=== PATIENT | male | born 1965 | race Caucasian/White ===

== ENCOUNTER 2018-03-14 16:41 | Emergency (ER) | payer BC, SELFPAY ==
[2018-03-14 16:42] VITALS: BP 121/72; PULSE 94; RESP 16; TEMP 36.6; O2SAT 97; BMI 29.5
--- NOTE | 2018-03-14 16:50 | RAD_ITS ---
STUDY: X-RAY - LEFT HAND, ATTENTION FIRST FINGER REASON FOR EXAM: Male, 52 years old. Injury. Pain. TECHNIQUE: 3 view(s) of the finger were obtained. COMPARISON: None. FINDINGS: Normal metacarpal head. Normal metacarpophalangeal joint. Normal proximal phalanx. Normal middle phalanx. Normal distal phalanx. Normal proximal interphalangeal joint. Normal distal interphalangeal joint. There is no demonstrated fracture. RAD/Finger(s) Min 2 Views IMPRESSION: Normal x-ray examination of the thumb. Electronically Signed: Seferino Fox MD at 17:29 EST , Service support ,
--- NOTE | 2018-03-14 17:56 | ED.VISSUMM ---
- ER Visit Summary Date of Service: 03/14/18 Chief Complaint: Left thumb injury History of Present Illness: The patient is a 52 M aqqib-vwjd-mnpefnpa male who shot his left thumb in a car door yesterday. He has continued pain and throbbing in the left thumb with subungual hematoma. He has been taking Tylenol at home for pain. Physical Examination: Vital signs unremarkable. Patient sitting upright bed no acute distress. Left upper extremity examination reveals tenderness along the distal acid of the left thumb with a subungual hematoma. No gross deformities noted. He does have good range of motion. Test Results: Left thumb x-rays are read as normal. On my review the lateral image does appear to show a line concerning for fracture., Although it is not seen on any of the other views. Emergency Department Course and Treatment: Test results are discussed with patient and at bedside. I advised that whether or not there is a small nondisplaced fracture, our overall treatment will not change. We discussed potentially draining the subungual hematoma. Because the injury is nearly 24 hours old at this time he would prefer to not have this performed. He will be given an AlumaFoam splint. Because he does have evidence of hematoma out to the edge of the nail and I do question whether he may have a fracture, he will be covered with a short course of doxycycline to protect against infection. Treatment Plan: [] Disposition: Discharge Impression: 1. Crush injury left thumb 2. Subungual hematoma This note was generated with [employer] dictation software. It may contain incorrect words, spelling, and punctuation that were not noted in review of the chart prior to signing ED Disposition - Plan for ED Patient: Disposition: Home or Assisted Living Chief Complaint: Upper Extremity Injury Instructions: ED Crush Injury Finger No Fx, ED Hematoma Subungual Prescriptions: Naproxen [Naprosyn] 500 mg PO BID PRN PRN #20 tablet PRN Reason: Pain Doxycycline Monohydrate 100 mg PO BID #8 capsule Referrals: Robbin Vanegas MD [Primary Care Provider] - 1-2 Weeks
[2018-03-14] MEDS: Naproxen 500 MG Tablet PO (18:23)
[2018-03-14] MEDS: Doxycycline 100 MG CAPSULE PO (18:23)
[2018-03-14 18:29] VITALS: BP 125/78; PULSE 82; RESP 16; O2SAT 98
== END 2018-03-14 18:33 | disposition home or self-care (01) ==
PROVIDERS: Emergency Provider Emergency Medicine; Family Provider Family Medicine; PCP Family Medicine
DX: S67.02XA Crushing injury of left thumb, initial encounter (principal); S60.112A Contusion of left thumb with damage to nail, initial encounter; W23.0XXA Caught, crushed, jammed, or pinched between moving objects, initial encounter; Y93.9 Activity, unspecified; Y92.810 Car as the place of occurrence of the external cause; I10 Essential (primary) hypertension; J45.909 Unspecified asthma, uncomplicated; Z87.891 Personal history of nicotine dependence; Z79.82 Long term (current) use of aspirin; Z79.899 Other long term (current) drug therapy
CPT/HCPCS: 73140; 99284

== ENCOUNTER → 2018-10-08 | Outpatient (CLI) | payer BC, SELFPAY ==
--- NOTE | 2018-10-08 08:31 | RAD_ITS ---
STUDY: X-RAY - ESOPHAGUS (BARIUM SWALLOW) WITH FLUOROSCOPY REASON FOR EXAM: Male, 53 years old. Dysphagia for solids. TECHNIQUE: 17 fluoroscopic view(s) of the esophagus were obtained following swallowing of barium. FLUOROSCOPY TIME (if supplied): (0:32) minutes/seconds COMPARISON: None. FINDINGS: There is no demonstrated esophageal foreign body. There is no demonstrated stricture or mucosal abnormality. There is a small hiatal hernia of the fundus of the stomach. Weblike stenosis is seen at the gastroesophageal junction. The patient ingested a 12 mm tablet of barium. The tablet is trapped at the gastroesophageal junction. Normal visualized aortic arch and descending thoracic aorta. Normal visualized pulmonary parenchyma. Normal visualized osseous structures of the thorax. RAD/Esophagus Only IMPRESSION: Small sliding hiatal hernia without evidence of gastroesophageal reflux. Weblike stenosis at the gastroesophageal junction with trapping of the 12 mm tablet of barium at that site. Electronically Signed: Stan Gonsalez, at 12:44 EDT , Service support ,
== END | disposition home or self-care (01) ==
LOC: RAD 08:26
PROVIDERS: Family Provider Family Medicine; PCP Family Medicine; Referring Provider Family Medicine; Visit Provider Family Medicine
DX: R13.10 Dysphagia, unspecified (principal)
CPT/HCPCS: 74220

== ENCOUNTER 2018-10-14 05:54 | Day surgery (SDC) | payer BC, SELFPAY ==
[2018-10-12 14:13] VITALS: BMI 29.5
[2018-10-14 06:16] VITALS: BP 115/84; PULSE 73; RESP 16; TEMP 36.4; O2SAT 94; BMI 31.0
--- NOTE | 2018-10-14 07:00 | IMM_PTH ---
PATIENT: ARSENIO VILLALOBOS LOC: EN U#:[id number] AGE/SX: 53/M ROOM: RE10/14/[address]: Dr. Scot Johnson MD : 1965 BED: DIS: 10/14/2018 SPEC #: [id number] RECD: 10/14/18 13:24 STATUS: SHANEL REAustin #: [id number] RUPERT: 10/14/18 07:[address]: Scot Johnson DEPT: IMMUNOHISTOCHEMISTRY RECD BY: Penelope Alex ENTERED: 10/14/18 13:24 SP TYPE: IMMUNO OTHR DR: MD Robbin Malave MD Tissues: A - Stomach, NOS Procedures: H Pylori (initial) PHYSICIAN & INSTITUTION [place] [address] SPECIMEN INFORMATION: Tissue Source: A - Antral biopsy Clinical Info: Dysphagia Specimen Number: [id number] CPT code: 25604 METHODOLOGY: Deparaffinized sections of prefer/formalin-fixed tissue or PAP/DQ stained slides are incubated with monoclonal/polyclonal antibodies/oligonucleotide probes. Localization is made via biotin free immunoperoxidase method. Appropriate controls are performed and reacted as expected. Results on target cell population are indicated in the following table: RESULTS: ANTIBODY / CLONE RESULT Block A H Pylori (polyclonal) negative These tests were developed and their performance characteristics determined by [facility]. They may not have been cleared or approved by the U.S. Food and Drug Administration. The FDA has determined that such clearance or approval is not necessary. INTERPRETATION: Antral biopsy: Negative for Helicobacter pylori organisms. FA:nolan 10/15/18
--- NOTE | 2018-10-14 07:00 | EGD_PTH ---
PATIENT: ARSENIO VILLALOBOS LOC: EN U#:[id number] AGE/SX: 53/M ROOM: RE10/14/[address]: Dr. Scot Johnson MD : 1965 BED: DIS: 10/14/2018 SPEC #: [id number] RECD: 10/14/18 11:15 STATUS: SHANEL NIMISHA #: [id number] RUPERT: 10/14/18 07:[address]: Scot Johnson DEPT: SURGICAL PATHOLOGY RECD BY: Jenny Garner ENTERED: 10/14/18 13:14 SP TYPE: EGD BIOPSY OT DR: MD Robbin Malave MD Tissues: A - Gastric mucous membrane B - Esophageal mucous membrane Procedures: Surgery Specimen Level IV HEADER OPERATION: EGD with possible dilation PRE-OP DIAGNOSIS: Dysphagia TISSUE SUBMITTED: A. Antral biopsy for histo and H. pylori, B. Distal esophageal biopsy MICROSCOPIC DIAGNOSIS A. Antral biopsy: Antral mucosa with no significant pathologic changes. See comment. B. Distal esophagus biopsy: Squamogastric GE junction mucosa with increased eosinophils in the squamous epithelium consistent with eosinophilic esophagitis. Eosinophil count up to 25/ HPF. No evidence of Gilbert's intestinal metaplasia. Negative for dysplasia. FA:nolan 10/15/18 COMMENT A. The results of immunohistochemistry for Helicobacter pylori will be reported separately ([id number]). MICROSCOPIC DESCRIPTION Slides are reviewed. GROSS DESCRIPTION A - Received in fixative is one container labeled with the patient's name and designated antral biopsy. The specimen consists of a single pinkish-castellanos biopsy fragment measuring up to 2 mm in greatest dimension. The specimen is totally submitted in one cassette. B - Received in fixative is one container labeled with the patient's name and designated distal esophageal biopsy. The specimen consists of two pinkish-castellanos biopsy fragments ranging from 2 to 3 mm in greatest dimension. The specimen is totally submitted in one cassette. / FA:nolan 10/14/18 TC:3 [facility]: [id number] x2
--- NOTE | 2018-10-14 07:00 | PCM.HP.BLA ---
History and Physical Date of Admission: 10/14/18 [facility] [address] [place] [address] OFFICE VISIT Date of Service: 10/12/18 MR#: [id number] Acct: [id number] Name: ARSENIO VILLALOBOS Rep #: [id number] : 1965 Provider: Scot Johnson MD Age/Sex: 53/M Location: [facility] Status: Signed Intake Vital Signs 10/13/18 Body Mass Index (BMI) 29.5 10/12/18 Height 5 ft 10 in 10/12/18 Weight: 205 lb 6 oz 10/12/18 Body Mass Index (BMI) 29.5 10/12/18 Blood Pressure 113/74 10/12/18 Blood Pressure Location Rt brachial 10/12/18 Respiratory Rate 20 H 10/12/18 Pulse Rate 75 10/12/18 Pulse Ox 97 Intake Visit Reasons: dysphagia/abn barium swallow Chief Complaint: dysphagia Skilled Nursing Facility Counselor Required: No Is patient in pain?: No Allergies Penicillins Allergy (Verified 10/13/18 09:37) Unknown Medications Cetirizine HCl [Zyrtec] 10 mg PO DAILY 02/06/15 [History Confirmed 10/13/18] Multivitamins,Therapeutic [Multivitamin] 1 tab PO DAILY 02/06/15 [History Confirmed 10/13/18] buPROPion SR [Wellbutrin Sr] 150 mg PO BID 02/06/15 [History Confirmed 10/13/18] Aspirin [Aspir-Low] 81 mg PO DAILY 05/17/16 [History Confirmed 10/13/18] Cholecalciferol (Vitamin D3) [Vitamin D3] 1,000 unit PO DAILY 05/17/16 [History Confirmed 10/13/18] Nebivolol HCl [Bystolic] 5 mg PO DAILY 05/17/16 [History Confirmed 10/13/18] Quinapril HCl [Accupril] 10 mg PO DAILY 05/17/16 [History Confirmed 10/13/18] Tadalafil [Cialis] 5 mg PO DAILY 05/17/16 [History Confirmed 10/13/18] Albuterol Inhaler [Ventolin Hfa (SP)] 1 - 2 puff INHALATION Q6H PRN PRN 10/25/16 [History Confirmed 10/13/18] ammonium lactate 12 % topical cream 1 applic TOPICAL BID 10/12/18 [History Confirmed 10/13/18] calcium citrate 250 mg tablet 250 mg PO BID 10/12/18 [History Confirmed 10/13/18] Esomeprazole Magnesium [Nexium 24Hr] 20 mg PO PRN PRN 10/13/18 [History Confirmed 10/13/18] [facility] Medical History Anxiety (Acute) Back pain (Acute) Cardiac murmur (Acute) Esophageal stricture (Acute) GERD (gastroesophageal reflux disease) (Acute) Surgical History History of carpal tunnel release (Acute) History of cholecystectomy (Acute ~2007) History of colonoscopy (Acute ~2015) History of esophagogastroduodenoscopy (EGD) (Acute) History of fusion of cervical spine (Acute) History of vasectomy (Acute) Family History Father Hypertension Alzheimer disease Mother Breast cancer Social History (Updated 10/13/18 @ 10:50 by Scot Johnson MD) Smoking Status: Former smoker HPI HPI HPI: ARSENIO VILLALOBOS, is a 53 M who presents to the office today for HPI HPI Surgical H&P: Yes HPI: ARSENIO VILLALOBOS, is a 53 M who presents to the office today for evaluation for an upper endoscopy. Patient has been having problems with dysphagia and is been getting worse where he has daily food getting stuck in his esophagus. His last upper scope was 3 years ago he did not undergo dilatation at that time. He has a history of esophageal foreign body approximately 8 years ago which was subsequently removed in [place]. His most recent barium swallow was completed [facility] on 10/08/2018 that showed a small hiatal hernia without evidence of gas esophageal reflux disease weblike stenosis at the GE junction with trapping of a 12 mm tablet at that site. ROS General General: Yes fatigue; no weight change, appetite, colon cancer, breast cancer or weakness HEENT HEENT: Yes difficulty swallowing; no eye injury, eye surgery, swollen glands or hoarseness Endo Endocrine: No thyroid disease, diabetes mellitus, thyroid cancer, Hair loss, heat intolerance or cold intolerance Cardio Cardiovascular: Yes murmur; no pacemaker, heart disease, atrial fibrillation, high blood pressure, heart attack, heart stent, palpitations, shortness of breat with exertion or chest pain Psych Psychiatric: Yes anxiety; no depression or hearing voices Resp Respiratory: No shortness of breath, No sleep apnea, No cough, No COPD, No asthma, No emphysema, No wheezing Gastro Gastrointestinal: No abdominal pain, No nausea or vomiting, No diarrhea, No constipation, No blood in stool, Yes acid reflux, No hemorrhoids, No ulcers, No gallbladder problem, No black,tarry stools Neuro Neurologic: No weakness Exam Const General: no acute distress, well developed, well hydrated Orientation: oriented to person, oriented to place, oriented to time [facility] Head: normocephalic, atraumatic Ears: external ears normal Mouth: moist mucous membranes Eyes Sclera: sclerae normal Pupils: normal by confrontation Neck Neck: no lymphadenopathy noted Neck mass: No Thyroid: thyroid normal, symmetrical Chest Chest palpation & inspection: normal inspection of the chest Resp Effort & Inspection: normal respiratory effort Auscultation: clear to auscultation bilaterally Percussion: percussion normal Cardio Rate: regular rate Rhythm: regular rhythm Heart Sounds: murmur GI Palpation: soft, no hepatosplenomegaly, no masses, nontender Rectal Exam: other Other: Rectal exam deferred. Extrem General: normal to inspection, no clubbing, cyanosis or edema Assessment & Plan Problems 1. Esophageal dysphagia R13.10 Plan I have discussed the above with the patient. I have offered the patient esophagogastroduodenoscopy with possible dilatation for evaluation. I have explained the risks/benefits of the procedure and described the procedure. I have discussed the risks with the patient, including but not limited to: infection, bleeding, perforation of the GI tract requiring emergency surgery, inability to complete the procedure, injury to any internal organs, complications of anesthesia, etc. - the patient understands and agrees to proceed. I have answered all the patient's questions to the patient's satisfaction and the patient has no further questions. The patient has been given instructions for the colon cleansing preparation. Coding Level of Care Code Off vis,new,level 3 Diagnoses Esophageal dysphagia R13.10 ??Dysphagia type: esophageal phase 10/13/18 1050 <Electronically signed by Scot Johnson MD> Date Scot Salinas Signature: Date (if applicable) CC: Robbin Vanegas MD ~ I have re-examined the patient. There are no clinical changes since date of exam.
[2018-10-14 07:15] VITALS: BP 103/87; BP 115/84; PULSE 90; RESP 16; TEMP 36.7; O2SAT 93
--- NOTE | 2018-10-14 07:19 | OP.ENDO_ITS ---
10/14/2018 Robbin Vanegas Md Re : Upper GI endoscopy procedure for Clyde Fischer Rosa Elena Vanegas This procedure was performed on Sunday, October 14, 2018. My impressions and recommendations are as follows: Impressions : - LA Grade A reflux esophagitis. Rule out Gilbert's esophagus. Biopsied. - Mucosal changes suspicious for gastritis. Biopsied. - Erythematous duodenopathy. No specimens collected. Recommendations : - Discharge patient to home. - Resume previous diet. - Use Nexium (esomeprazole) 20 mg PO BID for 3 months. - Continue present medications. My findings are described in the full procedure note, which is enclosed. If I can be of further assistance, please feel free to contact me at Doctor phone number(s): , Fax: [phone], Work: . Sincerely, MD Scot De MD 10/14/2018 7:18:48 AM This report has been signed electronically.
[2018-10-14 07:20] VITALS: BP 108/76; BP 115/84; PULSE 82; RESP 16; O2SAT 92
[2018-10-14 07:25] VITALS: BP 107/76; BP 115/84; PULSE 77; RESP 16; O2SAT 92
[2018-10-14 07:31] VITALS: BP 101/75; BP 115/84; PULSE 78; RESP 16; TEMP 37.1; O2SAT 94
[2018-10-14 07:44] VITALS: BP 115/84
== END 2018-10-14 07:49 | disposition home or self-care (01) ==
LOC: EN 05:55 → AC 05:57
PROVIDERS: Family Provider Family Medicine; PCP Family Medicine; Referring Provider Family Medicine; Visit Provider Surgery
PROC: 0DJ08ZZ Inspection of Upper Intestinal Tract, Via Natural or Artificial Opening Endoscopic (ICD-10-PCS; CPT 43235; principal; 2018-10-14 06:55)
DX: K21.0 Gastro-esophageal reflux disease with esophagitis (principal); K31.89 Other diseases of stomach and duodenum; R13.14 Dysphagia, pharyngoesophageal phase; R12 Heartburn; I10 Essential (primary) hypertension; F32.9 Major depressive disorder, single episode, unspecified; F41.9 Anxiety disorder, unspecified; R01.1 Cardiac murmur, unspecified; Z79.82 Long term (current) use of aspirin; Z79.899 Other long term (current) drug therapy; Z87.891 Personal history of nicotine dependence
CPT/HCPCS: 43239; 88305; 88342; J7120; J2405

== ENCOUNTER → 2019-03-23 12:41 | Outpatient (CLI) | payer BC, SELFPAY ==
--- NOTE | 2019-03-23 13:04 | EKG12_ITS ---
Test Reason : PRE OP Blood Pressure : / mmHG Vent. Rate : 086 BPM Atrial Rate : 086 BPM P-R Int : 140 ms QRS Dur : 092 ms QT Int : 332 ms P-R-T Axes : 052 047 028 degrees QTc Int : 397 ms Normal sinus rhythm Normal ECG Confirmed by ALICIA BERRY, CARMITA ([id number]), features editor DEEPIKA ORTEGA ([id number]) on 03/24/2019 12:53:48 PM Referred By: Manuel Marques Confirmed By:CARMITA VARGAS MD
[2019-03-23 13:59] LABS: Hematocrit 49.3 % (40-54); Hemoglobin 16.3 g/dL (13.0-16.5); Mean Corp Hgb Conc 33.1 g/dL (32-36); Mean Corpuscular Hgb 29.9 pg (27.0-32.0); Mean Corpuscular Volume 90.5 fL (80-94); Mean Platelet Vol. 9.6 fl (6.2-12.0); Platelet Count 220 K/mm3 (150-450); RBC Distribution Width SD 43.4 fl (35.1-43.9); Red Blood Count 5.45 M/mm3 (4.6-6.2); White Blood Count 7.4 K/mm3 (4.4-11.0)
[2019-03-23 14:22] LABS: Anion Gap 7 (5-15); BUN 9 mg/dL (7-18); BUN/Creat Ratio 8.1 RATIO (10-20); Calcium,Total 8.7 mg/dL (8.5-10.1); Chloride 104 mmol/L (98-107); Creatinine, Serum 1.11 mg/dL (0.70-1.30); EST Glomerular Filtration Rate 74 mL/min (>60); Est Glom Filt Rate - Afr Amer 89 mL/min (>60); Glucose 84 mg/dL (74-106); Sodium Level 137 mmol/L (136-145)
== END ==
PROVIDERS: Family Provider Family Medicine; PCP Family Medicine; Referring Provider Orthopaedic Surgery; Visit Provider Orthopaedic Surgery
DX: Z01.818 Encounter for other preprocedural examination (principal); Z01.810 Encounter for preprocedural cardiovascular examination
CPT/HCPCS: 36415; 80048; 85027; 93005

== ENCOUNTER → 2019-12-24 15:35 | Outpatient (CLI) | payer BC, SELFPAY ==
--- NOTE | 2019-12-24 15:38 | RAD_ITS ---
STUDY: X-RAY - CERVICAL SPINE REASON FOR EXAM: Male, 54 years old. RIGHT SIDED RADICULOPATHY, HX OF CERVICAL FUSION IN 2008 TECHNIQUE: 70 view(s) of the cervical spine were obtained. COMPARISON: None FINDINGS: Normal anterior atlantoaxial articulation. Normal odontoid process. Normal cervical lordosis. Degenerative changes of the vertebral bodies with spurring at the endplates. Status post surgical fusion of the C5-C7 with disc spaces. Normal disc space heights. Uncovertebral spurring narrowing the C7-T1 intervertebral neuroforamina. The soft tissue structures are unremarkable. RAD/Cerv Spine Obl/Flex/Ext Comp IMPRESSION: Degenerative and postsurgical changes of the visualized cervical spine. Electronically Signed: Jesse Linn DO at 16:00 EDT Tel [phone], Service support ,
== END ==
PROVIDERS: PCP Family Medicine; Referring Provider Family Medicine; Visit Provider Family Medicine
DX: M54.12 Radiculopathy, cervical region (principal)
CPT/HCPCS: 72052

== ENCOUNTER → 2020-01-18 16:11 | Outpatient (CLI) | payer BC, SELFPAY ==
[2020-01-18 18:12] LABS: Absolute Lymphocyte Count 2.23 X10^3/uL (0.83-4.51); Absolute Neutrophil Count 2.7 X10^3/uL (2.0-7.7); Basophil# 0.05 X10^3/uL; Basophil% 0.9 % (0-1); Eosinophil# 0.44 X10^3/uL; Eosinophils% 7.5 % (0-5); Hematocrit 46.4 % (40-54); Hemoglobin 15.4 g/dL (13.0-16.5); Lymphocyte # 2.23 X10^3/ul (4.0); Lymphocyte % 38.2 % (19-41); Mean Corp Hgb Conc 33.2 g/dL (32-36); Mean Corpuscular Volume 90.3 fL (80-94); Mean Platelet Vol. 9.6 fl (6.2-12.0); Monocyte# 0.41 X10^3/uL; NRBC Flagged by Analyzer 0 % (0-5); Neutrophil % 46.2 % (47-70); Platelet Count 220 K/mm3 (150-450); RBC Distribution Width CV 12.3 % (11.6-14.6); Red Blood Count 5.14 M/mm3 (4.6-6.2); White Blood Count 5.8 K/mm3 (4.4-11.0)
[2020-01-18 18:22] LABS: Vitamin B12 365 pg/mL (211-911); Vitamin D,25 Hydroxy 85.8 ng/mL
[2020-01-18 19:25] LABS: Hemoglobin A1c 5.3 % (3.8-5.6)
[2020-01-18 20:41] LABS: ALB/GLOB Ratio 1.2 RATIO (0.9-2.4); AST(SGOT) 27 U/L (15-37); Alanine Aminotransfer ALT/SGPT 35 U/L (16-61); Albumin, Serum 3.8 g/dL (3.2-5.0); Alkaline Phosphatase 78 U/L (45-117); Anion Gap 6 (5-15); BUN 16 mg/dL (7-18); Calcium,Total 8.7 mg/dL (8.5-10.1); Chloride 103 mmol/L (98-107); Cholesterol 216 mg/dL (200); Creatinine, Serum 1.23 mg/dL (0.70-1.30); EST Glomerular Filtration Rate 65 mL/min (>60); Est Glom Filt Rate - Afr Amer 79 mL/min (>60); Estradiol 39.9 pg/mL; Free T3 3.3 pg/mL (2.18-3.98); Globulin 3.2 g/dL (2.2-4.2); Glucose 131 mg/dL (74-106); High Density Lipoprotein 58 mg/dL; Potassium 3.7 mmol/L (3.5-5.1); Sodium Level 135 mmol/L (136-145); T4 Total, Thyroxin 8.4 ug/dL (4.5-12.1); Thyroid Stim Hormone (TSH) 3.44 uIU/mL (0.358-3.74); Triglycerides 215 mg/dL; Very Low Density Lipoprotein 43 mg/dL (5-40)
[2020-01-23 20:07] LABS: Testosterone, % Free 3.09 % (1.50-4.20); Testosterone, Free 26.79 ng/dL (5.00-21.00)
[2020-01-24 11:37] LABS: PSA, Free % 15.2 % (.); PSA, Total 4.6 ng/mL (0.0-4.0); Testosterone, Total 867 ng/dL (264-916)
[2020-01-24 11:38] LABS: Thyroid Peroxidase AB < 9 IU/mL (0-34)
== END ==
PROVIDERS: PCP Family Medicine; Referring Provider Nurse Practitioner Family; Visit Provider Nurse Practitioner Family
DX: R53.83 Other fatigue (principal); Z79.890 Hormone replacement therapy; E55.9 Vitamin D deficiency, unspecified; Z13.1 Encounter for screening for diabetes mellitus; Z13.220 Encounter for screening for lipoid disorders; Z12.5 Encounter for screening for malignant neoplasm of prostate; Z13.29 Encounter for screening for other suspected endocrine disorder
CPT/HCPCS: 36415; 80053; 80061; 82306; 82607; 82670; 83036; 84153; 84402; 84403; 84436; 84443; 84481; 85025; 86376

== ENCOUNTER 2020-02-17 09:00 | Outpatient (RCR) | payer BC, SELFPAY ==
--- NOTE | 2020-01-20 11:29 | HP.PTEVAL ---
Patient's Visit Information ARSENIO VILLALOBOS is a 54 year old M referred to Physical Therapy by HOLGER Lopez with a diagnosis of CERVICAL RADICULOPATHY. Date of Evaluation: 01/20/20 Physical Therapist: Bryce Moscoso, PT, Cert MDT, OCS - Visit Plan Frequency: 2x /Week Duration: 4 Weeks Plan: PT INTERVENTIONS US/EXTIM/CP,CERVICAL /POSTURAL EX'S ,STRENGTHNENING - Subjective This 54 y/o male presents to physical therapy cervical radiclopathy. Patient intially had cervical fusion plate and screws C5-7 2008 . Doing well .Patient started to noticed symptoms 2019 of this year. Patient noticed pins and needles in arm and constantly aches. Seen Dr Richardson ,but Dr nikia mayorga had x-rays done showed narrowing and spurs at C7-T1.Location biceps elbow and hands finger . Patient was gived aleve. Dr Richardson order MRI but insurance want sto try PT. Aggrevatting factor sitting ,computer ,turn cervical spine,carrying something heavy. Symptoms afffects sleeping. Allevating factors resting. Denies SINGLETON/tiinutis/nausea.Difficulty with fine motor tasks . Patient symptoms affects houseworks tasks and ADLS'. Patient symptoms affects QOL. SOCAIL: . 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 PALPTION: tender UT/levtaor. NEURO: c/o parathesia/tingling right hand /fingers,reflexes C6-7 1/3 RIGHT ,LEFT 2/3. slight change mytome C7. CERVICAL ROM: flexion min loss,lateral flexion/rotation mod loss,extension mod loss. AROM BUE: WFL. MMT:5/5 except shoulder 4/5,triceps 4/5 - Special Tests C/S Radiculapathy - Left Upper limb tension test: Negative C/S Radiculapathy - Right Upper limb tension test: Negative C/S Radiculapathy - Left Spurlings: Negative C/S Radiculapathy - Right Spurlings: Positive C/S Radiculapathy - Left Cervical distraction: Negative C/S Radiculapathy - Right Cervical distraction: Negative Sharp Ramona: Negative Vertebral Artery Test: Negative Alar Ligament Test: Negative - Goals Goal 1:: Patient to be I with HEP Goal Time Frame: 4-6 Weeks Goal 2:: Patient to improve posture for ADLS' Goal Time Frame: 4-6 Weeks Goal 3:: Patient decrease cervical radiculopathy by 50% or > to improve function. Goal Time Frame: 4-6 Weeks Goal 4:: Patient to improve cervical ROM for function of recovery with less symptoms right arm. Goal Time Frame: 4-6 Weeks Goal 5:: Patient improve neck owestry score by 5 points or > to improve function. Goal Time Frame: 4-6 Weeks - Rehabilitation Potential Physical Therapy Diagnosis: This patient has cervical radiculopathy with possible lateral stenosis with symptoms in biceps,elbows and hand ,slight myotome weakness C7 and h/o cervical fusion C5 -C7 thus benifit from skilled PT Rehabilitation Potential: Good - Anticipated Interventions Patient/Client Instruction: Educate patient on: Condition, Plan of Care For the Purpose of:: To decrease pain, To increase ROM, To improve muscle performance and motor function, To improve ability to perform ADL's, To increase tolerance to activity/condition/position, To improve ability of physical actions for home/community/work/leisure, To improve health of tissue, To decrease soft tissue restriction, To increase flexibility/ROM, To improve ability to perform tasks related to life management Therapeutic Exercise to Include: Strength training, Postural training, Flexibilty training, Active ROM Comment: CERVICAL For the Purpose of:: To decrease pain, To increase ROM, To improve muscle performance and motor function, To improve ability to perform ADL's, To increase tolerance to activity/condition/position, To improve ability of physical actions for home/community/work/leisure, To improve health of tissue, To decrease soft tissue restriction, To increase flexibility/ROM TENS: Yes IF ES: Yes Cryotherapy (ice pack, ice massage): Yes Thermo therapy (hot pack): Yes Ultrasound (thermal/non thermal): Yes For the Purpose of:: To decrease pain, To increase ROM, To improve nutrient delivery to tissue, To increase oxygenation perfusion, To improve health of tissue, To decrease soft tissue restriction, To increase flexibility/ROM Thank you for the opportunity to evaluate your patient. For Medicare and Medicare HMO plans, please review the plan of care and approve it. It will need to be FAXED BACK to us at [phone] for Medicare purposes. For Medicare only, by signing this I certify the plan of care. Please let me know if there are questions or concerns regarding this plan of care. Physician Signature: Date:
--- NOTE | 2020-04-26 13:15 | HP.PT.NRP ---
ARSENIO VILLALOBOS was seen in my office for initial evaluation on 01/20/20. The following Plan of Care was established for this patient: Initial Frequency: 2x /Week Initial Duration: 4 Weeks Patient/Client Instruction: Educate patient on: Condition, Plan of Care For the Purpose of:: To decrease pain, To increase ROM, To improve muscle performance and motor function, To improve ability to perform ADL's, To increase tolerance to activity/condition/position, To improve ability of physical actions for home/community/work/leisure, To improve health of tissue, To decrease soft tissue restriction, To increase flexibility/ROM, To improve ability to perform tasks related to life management Therapeutic Exercise to Include: Strength training, Postural training, Flexibilty training, Active ROM For the Purpose of:: To decrease pain, To increase ROM, To improve muscle performance and motor function, To improve ability to perform ADL's, To increase tolerance to activity/condition/position, To improve ability of physical actions for home/community/work/leisure, To improve health of tissue, To decrease soft tissue restriction, To increase flexibility/ROM TENS: Yes IF ES: Yes Cryotherapy (ice pack, ice massage): Yes Thermo therapy (hot pack): Yes Ultrasound (thermal/non thermal): Yes For the Purpose of:: To decrease pain, To increase ROM, To improve nutrient delivery to tissue, To increase oxygenation perfusion, To improve health of tissue, To decrease soft tissue restriction, To increase flexibility/ROM This patient was last seen in our office . Pertinent comments regarding their Physical therapy will appear below: Patient was seen for cervical radiculopathy for modalties,cervical postural ex's. Patient to RTD possible MRI. At this point I will be discontinuing this patient from physical therapy. I would be happy to see this patient again in the future if found appropriate by the physician. Thank you! Bryce Moscoso, PT, Cert MDT, OCS
== END 2020-02-17 19:00 | disposition home or self-care (01) ==
LOC: PT 09:00
PROVIDERS: PCP Family Medicine; Referring Provider Nurse Practitioner Acute Care; Visit Provider Nurse Practitioner Acute Care
DX: M54.12 Radiculopathy, cervical region (principal)
CPT/HCPCS: 97014; 97035; 97162; G0283

== ENCOUNTER → 2020-03-07 09:31 | Outpatient (CLI) | payer BC, SELFPAY ==
--- NOTE | 2020-03-07 10:00 | MRI_ITS ---
STUDY: MRI CERVICAL SPINE WITHOUT CONTRAST REASON FOR EXAM: Male, 54 years old. Radiculopathy,DDD, right arm/hand tingling, hx prior fusion TECHNIQUE: Standardized fat and water weighted pulse sequences were obtained in the sagittal and axial planes. COMPARISON: X-ray 12/24/2019, MRI 12/07/2007 FINDINGS: Normal foramen magnum and brainstem-cervical cord junction. Normal craniovertebral junction. Normal anterior atlantoaxial articulation. Normal odontoid process. Normal cervical lordosis. Normal vertebral bodies and posterior osseous elements. C2-3: Normal endplates. Normal disc height, signal and morphology. Normal central canal and intervertebral neural foramina. C3-4: Interval development of 2 mm retrolisthesis of C3 on C4 with focal kyphosis and a mild broad disc osteophyte complex produces moderate spinal stenosis with abutment of the central spinal cord and mild bilateral neural foraminal stenosis. C4-5: Interval development of a mild broad disc osteophyte complex produces mild spinal stenosis but no neural foraminal stenosis. C5-6: Interval anterior cervical discectomy and fusion with anatomic alignment and no spinal stenosis or neural foraminal stenosis. C6-7: Interval anterior cervical discectomy and fusion with anatomic alignment and no spinal stenosis or neural foraminal stenosis. C7-T1: Normal endplates. Normal disc height, signal and morphology. Normal central canal and intervertebral neural foramina. Normal cervical cord. Normal visualized soft tissue structures. MRI/Spine Cervical (Routine) IMPRESSION: Interval anterior cervical discectomy and fusion from C5 through C7 with anatomic alignment and development of degenerative disc disease at C3/C4 and C4/C5. Electronically Signed: Gildardo Bailon MD at 10:56 EST Tel , Service support ,
== END ==
PROVIDERS: PCP Family Medicine; Referring Provider Nurse Practitioner Acute Care; Visit Provider Nurse Practitioner Acute Care
DX: M54.12 Radiculopathy, cervical region (principal); M50.30 Other cervical disc degeneration, unspecified cervical region; Z98.1 Arthrodesis status
CPT/HCPCS: 72141

== ENCOUNTER → 2020-03-14 10:12 | Outpatient (CLI) | payer BC, SELFPAY ==
--- NOTE | 2020-03-14 10:15 | EKG12_ITS ---
Test Reason : PREOP Blood Pressure : / mmHG Vent. Rate : 083 BPM Atrial Rate : 083 BPM P-R Int : 140 ms QRS Dur : 096 ms QT Int : 352 ms P-R-T Axes : 054 053 022 degrees QTc Int : 413 ms Normal sinus rhythm Normal ECG When compared with ECG of 23-MAR-2019 13:16, No significant change was found Confirmed by KAIT BERRY, DILLON ([id number]), ultrasound specialist DEEPIKA ORTEGA ([id number]) on 03/17/2020 11:28:24 AM Referred By: Marcus Tavarez Confirmed By:DILLON CARBALLO MD
== END ==
PROVIDERS: PCP Family Medicine; Referring Provider Urology; Visit Provider Urology
DX: Z20.828 Contact with and (suspected) exposure to other viral communicable diseases (principal); I10 Essential (primary) hypertension
CPT/HCPCS: 87635; 93005; C9803; U0003

== ENCOUNTER → 2020-03-21 16:11 | Outpatient (CLI) | payer BC, SELFPAY ==
[2020-03-21 16:47] LABS: Hematocrit 46.9 % (40-54); Hemoglobin 15.4 g/dL (13.0-16.5); Mean Corp Hgb Conc 32.8 g/dL (32-36); Mean Corpuscular Hgb 30.7 pg (27.0-32.0); Mean Corpuscular Volume 93.4 fL (80-94); Mean Platelet Vol. 9.7 fl (6.2-12.0); Platelet Count 218 K/mm3 (150-450); RBC Distribution Width CV 12.8 % (11.6-14.6); RBC Distribution Width SD 43.7 fl (35.1-43.9); Red Blood Count 5.02 M/mm3 (4.6-6.2); White Blood Count 6.5 K/mm3 (4.4-11.0)
[2020-03-21 17:30] LABS: Anion Gap 3 (5-15); BUN 16 mg/dL (7-18); BUN/Creat Ratio 14.4 RATIO (10-20); Calcium,Total 9.1 mg/dL (8.5-10.1); Chloride 106 mmol/L (98-107); Creatinine, Serum 1.11 mg/dL (0.70-1.30); EST Glomerular Filtration Rate 73 mL/min (>60); Est Glom Filt Rate - Afr Amer 89 mL/min (>60); Glucose 91 mg/dL (74-106); Potassium 3.8 mmol/L (3.5-5.1); Sodium Level 136 mmol/L (136-145)
== END ==
PROVIDERS: PCP Family Medicine; Visit Provider Urology
DX: I10 Essential (primary) hypertension (principal)
CPT/HCPCS: 36415; 80048; 85027

== ENCOUNTER 2020-06-02 21:31 | Emergency (ER) | payer BC, SELFPAY ==
[2020-06-02 21:32] VITALS: BP 119/82; PULSE 112; RESP 16; TEMP 36.3; O2SAT 94; BMI 31.7
[2020-06-02] MEDS: Acetaminophen 500 MG Tablet 1000 MG PO (21:59)
[2020-06-02] MEDS: Ondansetron ODT 4 MG Tablet PO (21:59)
[2020-06-02] MEDS: Ketorolac 15 MG/ML Vial IM (21:59)
[2020-06-02 22:03] VITALS: BP 119/86; PULSE 104; RESP 18; TEMP 36.3; O2SAT 96
--- NOTE | 2020-06-02 22:06 | ED.VIS.GEN ---
History of Present Illness Chief Complaint: General Illness Informant: Patient Narrative: 54-year-old male with past medical history of hypertension presents with concern for weakness. Patient was diagnosed with coronavirus 10 days ago. States that he is have increasing weakness and myalgias. Patient is having some intermittent shortness of breath. Intermittent fevers. Denies any chest pain. Admits to nausea without vomiting. Patient does have a nonproductive cough. Past Medical History - Allergies and Home Meds Allergies/Adverse Reactions: Allergies Penicillins Allergy (Verified 06/02/20 21:31) Unknown Primary Care Physician: Robbin Vanegas MD [Primary Care Provider] - Prior records reviewed: Yes Past Medical History: - - HTN Surgical History: cholecystectomy Lives: Spouse/ Significant Other Smoking Status: Former smoker Alcohol: None Drugs: None Review of Systems General: Reports: Chills, Fever, Malaise. Denies: Sweats Eyes: Denies: Visual changes - bilaterally, Diplopia ENT: Denies: Rhinorrhea, Sore throat Cardiovascular: Denies: Chest pain, Palpitations Respiratory: Reports: Cough. Denies: Dyspnea, Dyspnea on exertion Gastrointestinal: Denies: Abdominal pain, Nausea, Vomiting, Diarrhea, Melena, Hematochezia Genitourinary: Denies: Dysuria, Hematuria, Frequency Musculoskeletal: Reports: Myalgias. Denies: Back pain, Extremity Pain Skin: Denies: Rash, Wounds Neurological: Reports: Weakness. Denies: Headache, Numbness Physical Exam Vital Signs/Narrative: Vital Signs Temp Pulse Resp BP Pulse Ox 06/02/20 22:03 97.4 F L 104 H 18 119/86 H 96 06/02/20 21:32 97.4 F L 112 H 16 119/82 H 94 Inital Vital Signs reviewed: Yes General: Well nourished, Well developed, No Acute Distress Head: Normocephalic, Atraumatic Eyes: Perrl, EOMI ENT: Moist mucous membranes, No rhinorrhea Neck: Supple, Nontender Cardiovascular: Regular rate, Regular rhythm, No murmurs Respiratory: No distress, CTA bilaterally, Chest nontender Abdomen: Soft, Nontender, Nondistended, Normal bowel sounds Back: Nontender, Normal Inspection Extremities: Nontender, No edema Skin: Normal color, No rash Neurological: Alert, Oriented x3, Cranial nerves II-XII grossly intact, Normal Strength, Normal Sensation Psychological: Normal affect, Normal Mood Diagnostic/Tx/Re-eval - Medical Decision Making Patient appears well and nontoxic. On my exam patient's pulse oximetry is 98% with a heart rate of 98. Patient does feel warm and is likely febrile. Was given 1 g of Tylenol. Patient was also given Zofran and Toradol. Patient is feeling improved. Will be given Zofran and Naprosyn for home. Advised on continued supportive care and return for shortness of breath. Patient agreeable and discharged home in stable condition. Impression: 1. COVID-19 2. Nausea 3. Myalgias ED Disposition - Plan for ED Patient: Disposition: Home or Assisted Living Instructions: Coronavirus Disease 2019 (COVID-19): Overview, Coronavirus Disease 2019 (COVID-19): Caring for Yourself or Others Prescriptions: Naproxen [Naprosyn] 500 mg PO BID #14 tab Prescription Printed Ondansetron [Zofran Odt] 4 mg PO Q8H PRN PRN #10 tab PRN Reason: Nausea Prescription Printed Referrals: Robbin Vanegas MD [Primary Care Provider] - 2 Days
[2020-06-02 23:21] VITALS: BP 111/85
== END 2020-06-02 23:22 | disposition home or self-care (01) ==
PROVIDERS: Emergency Provider Emergency Medicine; PCP Family Medicine
DX: U07.1 COVID-19 (principal); M79.10 Myalgia, unspecified site; R11.0 Nausea; I10 Essential (primary) hypertension; Z87.891 Personal history of nicotine dependence
CPT/HCPCS: 96372; 99283

== ENCOUNTER 2020-06-06 19:13 | Inpatient (IN) | payer BC, SELFPAY ==
[2020-06-06] VITALS (9 sets, daily range): BP systolic 102–122; BP diastolic 70–82; PULSE 89–100; RESP 20–24; TEMP 36.9–37.1; O2SAT 87–96; BMI 31.7; BMI 32.8
--- NOTE | 2020-06-06 19:30 | EKG12_ITS ---
Test Reason : DYSRHYTHMIA Blood Pressure : / mmHG Vent. Rate : 087 BPM Atrial Rate : 087 BPM P-R Int : 136 ms QRS Dur : 092 ms QT Int : 340 ms P-R-T Axes : 036 029 010 degrees QTc Int : 409 ms Normal sinus rhythm Normal ECG Confirmed by ALICIA BERRY, CARMITA ([id number]), scientific publications editor IGNACIA PIERSON ([id number]) on 06/08/2020 1:50:14 PM Referred By: Confirmed By:CARMITA VARGAS MD
--- NOTE | 2020-06-06 19:47 | ED.VIS.GEN ---
History of Present Illness Chief Complaint: Shortness of Breath Informant: Patient Narrative: 54-year-old male presenting on day 14 of Covid symptoms. Patient states that he is more short of breath than what he has been. He spot checked his home oxygen and it was in the low 80s. He talked to his doctor advised him to come to the hospital for evaluation. He states his chest feels tight but he is not having pain. He notes a significant headache. He states he has some hypertension but is otherwise a healthy individual. No known clotting disorders. - Past Medical History (1) GERD (gastroesophageal reflux disease) Status: Chronic Past Medical History - Allergies and Home Meds Allergies/Adverse Reactions: Allergies Penicillins Allergy (Verified 06/02/20 21:31) Unknown Primary Care Physician: Robbin Vanegas MD [Primary Care Provider] - Past Medical History: - - Hypertension GERD anxiety Surgical History: cholecystectomy Lives: Spouse/ Significant Other Smoking Status: Former smoker Drugs: None Review of Systems General: Reports: Fever, Malaise. Denies: Chills, Sweats Eyes: Denies: Visual changes - bilaterally, Diplopia ENT: Denies: Rhinorrhea, Sore throat Cardiovascular: Denies: Chest pain, Palpitations Respiratory: Reports: Dyspnea, Cough. Denies: Dyspnea on exertion Gastrointestinal: Reports: Diarrhea. Denies: Abdominal pain, Nausea, Vomiting, Melena, Hematochezia Genitourinary: Denies: Dysuria, Hematuria, Frequency Musculoskeletal: Reports: Myalgias. Denies: Back pain, Extremity Pain Skin: Denies: Rash, Wounds Neurological: Reports: Headache. Denies: Weakness, Numbness Physical Exam Vital Signs/Narrative: Vital Signs Temp Pulse Resp BP Pulse Ox 06/06/20 19:14 98.5 F 100 20 H 122/72 H 87 Inital Vital Signs reviewed: Yes General: Well nourished, Well developed, No Acute Distress Head: Normocephalic, Atraumatic Eyes: Perrl, EOMI ENT: Moist mucous membranes, No rhinorrhea Neck: Supple, Nontender Cardiovascular: Regular rate, Regular rhythm, No murmurs Respiratory: No distress, CTA bilaterally, Chest nontender Abdomen: Soft, Nontender, Nondistended, Normal bowel sounds Back: Nontender, Normal Inspection Extremities: Nontender, No edema Skin: Normal color, No rash Neurological: Alert, Oriented x3, Cranial nerves II-XII grossly intact, Normal Strength, Normal Sensation Psychological: Normal affect, Normal Mood Diagnostic/Tx/Re-eval Clinical Impression(s) from Imaging Studies Chest X-Ray 06/06/20 20:10 IMPRESSION: Severe multifocal bilateral airspace opacities consistent with Covid pneumonia as clinically indicated. Electronically Signed: Neftaly Woods MD at 21:02 EST Tel , Service support , Chest CTA 06/06/20 20:31 IMPRESSION: No demonstrated pulmonary embolism or arterial dissection. Severe multifocal groundglass pulmonary opacities most consistent with Covid pneumonia. Mediastinal and hilar lymphadenopathy is nonspecific and may be reactive to infectious process. Electronically Signed: Neftaly Woods MD at 21:31 EST Tel , Service support , Laboratory Last Values WBC 8.7 K/mm3 (4.4-11.0) 06/06/20 19:30 RBC 4.47 M/mm3 (4.6-6.2) L 06/06/20 19:30 Hgb 13.6 g/dL (13.0-16.5) 06/06/20 19:30 Hct 41.0 % (40-54) 06/06/20 19:30 MCV 91.7 fL (80-94) 06/06/20 19:30 MCH 30.4 pg (27.0-32.0) 06/06/20 19:30 MCHC 33.2 g/dL (32-36) 06/06/20 19:30 RDW Std Deviation 43.7 fl (35.1-43.9) 06/06/20 19:30 RDW Coeff of Rebecca 12.9 % (11.6-14.6) 06/06/20 19:30 Plt Count 173 K/mm3 (150-450) 06/06/20 19:30 MPV 9.4 fl (6.2-12.0) 06/06/20 19:30 Immature Gran % (Auto) 0.700 % (0.0-0.9) 06/06/20 19:30 Neut % (Auto) 84.4 % (47-70) H 06/06/20 19:30 Lymph % (Auto) 10.8 % (19-41) L 06/06/20 19:30 [place] % (Auto) 3.3 % (0-10) 06/06/20 19:30 Eos % (Auto) 0.7 % (0-5) 06/06/20 19:30 Baso % (Auto) 0.1 % (0-1) 06/06/20 19:30 Absolute Neuts (auto) 7.4 X10^3/uL (2.0-7.7) 06/06/20 19:30 Absolute Lymphs (auto) 0.94 X10^3/uL (0.83-4.51) 06/06/20 19:30 Nucleated RBC % 0 % (0-5) 06/06/20 19:30 Fibrinogen 708 mg/dl (203-444) H 06/06/20 19:30 D-Dimer Quant (PE/DVT) 1.02 FEU/ug/m (0.27-0.49) H* 06/06/20 19:30 Sodium 140 mmol/L (136-145) 06/06/20 19:30 Potassium 3.9 mmol/L (3.5-5.1) 06/06/20 19:30 Chloride 106 mmol/L (98-107) 06/06/20 19:30 Carbon Dioxide 30.0 mmol/L (21.0-32.0) 06/06/20 19:30 Anion Gap 4 (5-15) L 06/06/20 19:30 BUN 11 mg/dL (7-18) 06/06/20 19:30 Creatinine 1.38 mg/dL (0.70-1.30) H 06/06/20 19:30 Estim Creat Clear Calc 61.19 ml/min 06/06/20 19:30 Est GFR (MDRD) Af Amer 69 mL/min (>60) 06/06/20 19:30 Est GFR (MDRD) Non-Af 57 mL/min (>60) L 06/06/20 19:30 BUN/Creatinine Ratio 8.0 RATIO (10-20) L 06/06/20 19:30 Glucose 126 mg/dL (74-106) H 06/06/20 19:30 Lactic Acid 1.3 mmol/L (0.4-1.9) 06/06/20 19:30 Calcium 8.2 mg/dL (8.5-10.1) L 06/06/20 19:30 Total Bilirubin 0.40 mg/dL (0.20-1.00) 06/06/20 19:30 AST 44 U/L (15-37) H 06/06/20 19:30 ALT 32 U/L (16-61) 06/06/20 19:30 Alkaline Phosphatase 72 U/L (45-117) 06/06/20 19:30 Total Creatine Kinase 219 U/L (39-308) 06/06/20 19:30 Troponin I < 0.015 ng/mL (<0.045) 06/06/20 19:30 Total Protein 6.4 g/dL (6.4-8.2) 06/06/20 19:30 Albumin 3.0 g/dL (3.2-5.0) L 06/06/20 19:30 Globulin 3.4 g/dL (2.2-4.2) 06/06/20 19:30 Albumin/Globulin Ratio 0.9 RATIO (0.9-2.4) 06/06/20 19:30 - EKG Initial EKG Interpretation: Sinus Rhythm - EKG demonstrates a normal sinus rhythm at a rate of 87 bpm without ectopy or concerning features of ACS - Medical Decision Making Patient is currently requiring 4 L nasal cannula to keep his sats about 95%. He is still dyspneic. Albuterol MDI improved symptoms but not resolved. D-dimer and fibrinogen elevated. Potation of the chest x-ray is multilobar lower airspace disease. PA of the chest was obtained which does not demonstrate pulmonary embolism. It does demonstrate severe multifocal groundglass pulmonary opacities. Patient received a dose of Decadron. Because he has significant chest x-ray findings and is still dyspneic on 4 L nasal cannula I am going to recommend admission. Patient is comfortable with this plan. ED Disposition - Plan for ED Patient: Disposition: Acute Care [facility] Diagnosis: COVID-19, Hypoxemia Referrals: Robbin Vanegas MD [Primary Care Provider] -
[2020-06-06 20:02] LABS: Absolute Lymphocyte Count 0.94 X10^3/uL (0.83-4.51); Absolute Neutrophil Count 7.4 X10^3/uL (2.0-7.7); Basophil# 0.01 X10^3/uL; Basophil% 0.1 % (0-1); Eosinophil# 0.06 X10^3/uL; Eosinophils% 0.7 % (0-5); Hemoglobin 13.6 g/dL (13.0-16.5); Lymphocyte # 0.94 X10^3/ul (4.0); Lymphocyte % 10.8 % (19-41); Mean Corp Hgb Conc 33.2 g/dL (32-36); Mean Corpuscular Hgb 30.4 pg (27.0-32.0); Mean Corpuscular Volume 91.7 fL (80-94); Mean Platelet Vol. 9.4 fl (6.2-12.0); Monocyte# 0.29 X10^3/uL; Monocyte% 3.3 % (0-10); NRBC Flagged by Analyzer 0 % (0-5); Neutrophil # 7.36 X10^3/uL (2.7-7.7); Neutrophil % 84.4 % (47-70); Platelet Count 173 K/mm3 (150-450); RBC Distribution Width CV 12.9 % (11.6-14.6); RBC Distribution Width SD 43.7 fl (35.1-43.9); Red Blood Count 4.47 M/mm3 (4.6-6.2); White Blood Count 8.7 K/mm3 (4.4-11.0)
[2020-06-06 20:10] LABS: Fibrinogen 708 mg/dl (203-444)
--- NOTE | 2020-06-06 20:10 | RAD_ITS ---
STUDY: X-RAY CHEST REASON FOR EXAM: Male, 54 years old. DX COVID ON 05/31, C/O WORSENING SYMPTOMS TODAY. TECHNIQUE: Single frontal view of the chest. COMPARISON: None. FINDINGS: Cardiac silhouette unremarkable. Pulmonary vascularity unremarkable. Aorta unremarkable. Severe multifocal bilateral airspace opacities. No pleural effusions. Upper abdomen unremarkable. Osseous structures intact. No pneumothorax. RAD/Chest 1 View (Portable) IMPRESSION: Severe multifocal bilateral airspace opacities consistent with Covid pneumonia as clinically indicated. Electronically Signed: Neftaly Woods MD at 21:02 EST Tel , Service support ,
[2020-06-06 20:15] LABS: D-Dimer Quantitative (DVT/PE) 1.02 FEU/ug/m (0.27-0.49)
[2020-06-06 20:23] LABS: ALB/GLOB Ratio 0.9 RATIO (0.9-2.4); AST(SGOT) 44 U/L (15-37); Alanine Aminotransfer ALT/SGPT 32 U/L (16-61); Alkaline Phosphatase 72 U/L (45-117); Anion Gap 4 (5-15); BUN 11 mg/dL (7-18); CPK Total, Creatine Kinase 219 U/L (39-308); Calcium,Total 8.2 mg/dL (8.5-10.1); Chloride 106 mmol/L (98-107); Creatinine, Serum 1.38 mg/dL (0.70-1.30); EST Glomerular Filtration Rate 57 mL/min (>60); Est Glom Filt Rate - Afr Amer 69 mL/min (>60); Estimated Creatinine Clearance 61.19 ml/min; Globulin 3.4 g/dL (2.2-4.2); Glucose 126 mg/dL (74-106); Potassium 3.9 mmol/L (3.5-5.1); Protein, Total 6.4 g/dL (6.4-8.2); Sodium Level 140 mmol/L (136-145)
[2020-06-06 20:24] LABS: Lactic Acid 1.3 mmol/L (0.4-1.9)
--- NOTE | 2020-06-06 20:31 | CT_ITS ---
STUDY: CTA CHEST REASON FOR EXAM: Male, 54 years old. COVID 19/SYMPTOMS WORSENING/E LEV DDIMER RADIATION DOSAGE (If Supplied By Facility): CTDIvol = ( 11.43 ) mGy, DLP = ( 576.71 ) mGycm TECHNIQUE: The examination was performed with the intravenous administration of IV 100mL Isovue-370. Post-processing of the angiographic images was performed, with multiplanar reformation and 3D reconstruction. Individualized dose optimization techniques were used for this CT. COMPARISON: None. FINDINGS: Normal enhancement of the main pulmonary artery and right and left pulmonary arteries. There is limited enhancement of the bilateral peripheral pulmonary arteries. There is no demonstrated pulmonary embolism. Normal thoracic aorta and visualized great vessels. There is no demonstrated aortic dissection. Normal heart and pericardium. Normal mediastinum enlarged lymph nodes are noted most notably a paratracheal node measuring up to 1.3 cm in short axis dimension and multiple subcarinal nodes. Prominent bilateral hilar soft tissue likely indicates adenopathy. Normal visualized trachea and bronchi. The lungs are well expanded. Severe multifocal groundglass pulmonary opacities most consistent with Covid pneumonia. Normal chest wall structures. Normal osseous structures. Normal visualized upper abdomen. CT/CTA Chest W/WO Contrast IMPRESSION: No demonstrated pulmonary embolism or arterial dissection. Severe multifocal groundglass pulmonary opacities most consistent with Covid pneumonia. Mediastinal and hilar lymphadenopathy is nonspecific and may be reactive to infectious process. Electronically Signed: Neftaly Woods MD at 21:31 EST Tel , Service support ,
[2020-06-06] MEDS: dexAMETHasone 4 MG Tablet 6 MG PO (20:57)
[2020-06-06] MEDS: Ketorolac 30 MG/ML Syringe IV (20:57)
--- NOTE | 2020-06-06 22:27 | HP.PCM_ITS ---
Problem List (1) SARS (severe acute respiratory syndrome) Status: Acute (2) COVID-19 Status: Acute (3) Hypoxemia Status: Acute (4) History of vasectomy Status: Chronic (5) History of cholecystectomy Status: Chronic (6) History of colonoscopy Status: Chronic (7) History of esophagogastroduodenoscopy (EGD) Status: Chronic Comment: 10/12/18 (8) History of carpal tunnel release Status: Chronic (9) History of fusion of cervical spine Status: Chronic (10) Back pain Status: Chronic (11) Anxiety Status: Chronic (12) Cardiac murmur Status: Chronic (13) Esophageal stricture Status: Chronic (14) GERD (gastroesophageal reflux disease) Status: Chronic History of Present Illness Date of Admission: 06/06/20 Chief Complaint: Shortness of breath The patient is a 54 year old M with a significant history of childhood exercise induced asthma; allergies; depression; and hypertension who presents to the emergency department with a 14 days history of progressively worsening shortness of breath. Initially he tested negative for Covid but repeat outpatient covid test on 05/27/2020 was positive. Patient came to the ER with a copy of the positive covid test Associated with symptoms is malaise; fatigue; headache; dry cough; change in taste and change in smell. He report that it smells like somebody smoking tobacco around him. He has had intermittent fever with the highest temperature of 103 Fahrenheit. He reports chills. Reportedly his oxygen saturation was 82% at home. The plan was to send him home on home oxygen however because a chest x-ray/chest CTA was concerning a decision was made for patient to be admitted. Past Medical History Past Medical History (Chronic Problems): Chronic Problems (Last Updated 11/24/18 @ 09:02 by Haven Wu) History of vasectomy (Chronic) History of cholecystectomy (Chronic ~2007) History of colonoscopy (Chronic ~2015) History of esophagogastroduodenoscopy (EGD) (Chronic) 10/12/18 History of carpal tunnel release (Chronic) History of fusion of cervical spine (Chronic) Back pain (Chronic) Anxiety (Chronic) Cardiac murmur (Chronic) Esophageal stricture (Chronic) GERD (gastroesophageal reflux disease) (Chronic) Medical History: Medical History (Last Reviewed 06/07/20 @ 03:[address] Abdon Fernandez MD) Back pain (Acute) M54.9 Anxiety (Acute) F41.9 Cardiac murmur (Acute) R01.1 Esophageal stricture (Acute) K22.2 GERD (gastroesophageal reflux disease) (Chronic) K21.9 History of esophageal dilatation Onset Date: ~09/2018 Z98.890 Allergies Penicillins Allergy (Verified 06/02/20 21:31) Unknown Home Medications: Ambulatory Orders Medication Instructions Recorded Cetirizine HCl [Zyrtec] 10 mg PO DAILY 02/06/15 Multivitamins,Therapeutic 1 tab PO DAILY 02/06/15 [Multivitamin] buPROPion SR [Wellbutrin Sr] 150 mg PO BID 02/06/15 Aspirin [Aspir-Low] 81 mg PO DAILY 05/17/16 Cholecalciferol (Vitamin D3) 50,000 unit PO QWEEK 05/17/16 [Vitamin D3] Nebivolol HCl [Bystolic] 5 mg PO DAILY 05/17/16 Tadalafil [Cialis] 10 mg PO DAILY 05/17/16 Albuterol Inhaler [Ventolin Hfa 1 - 2 puff INHALATION Q6H PRN PRN 10/25/16 (SP)] Irbesartan [Avapro] 150 mg PO DAILY 06/02/20 Naproxen [Naprosyn] 500 mg PO BID #14 tab 06/02/20 Omeprazole [Prilosec] 20 mg PO DAILY 06/02/20 Ondansetron [Zofran Odt] 4 mg PO Q8H PRN PRN #10 tab 06/02/20 Surgical History: Surgical History (Last Reviewed 06/07/20 @ 03:[address] Abdon Fernandez MD) History of vasectomy (Acute) Z98.52 History of cholecystectomy (Acute) Onset Date: ~2007 Z90.49 History of colonoscopy (Acute) Onset Date: ~2015 Z98.890 History of esophagogastroduodenoscopy (EGD) (Acute) Z98.890 10/12/18 History of carpal tunnel release (Acute) Z98.890 History of fusion of cervical spine (Acute) Z98.1 History of esophagogastroduodenoscopy (EGD) Onset Date: ~09/2018 Z98.890 Surgical History: cholecystectomy Lives: Spouse/ Significant Other Smoking Status: Former smoker Tobacco Use: Non-smoker Drugs: None - *Family History Maternal Family History: Family History (Last Reviewed 06/07/20 @ 03:[address] Abdon Fernandez MD) Father Hypertension Alzheimer disease Mother Breast cancer Review of Systems Constitutional: Reports: Anorexia, Chills, Fever, Malaise, Fatigue. Denies: Weight Change HEENT: Reports: Head Aches. Denies: Sinus Congestion, Sinus Drainage Cardiovascular: Denies: Chest Pain, Palpitations Respiratory: Reports: Cough, Shortness of Breath. Denies: Sputum production Gastrointestinal: Reports: Nausea. Denies: Abdominal Pain, Vomiting Genitourinary: Denies: Dysuria Musculoskeletal: Denies: Joint Pain, Joint Tenderness Skin: Denies: Rash, Wounds Neurological: Denies: Numbness, Tingling, Focal weakness Psychiatric: Reports: Depression. Denies: Homicidal Ideations, Suicidal Ideations Hematologic/ Lymphatic: Denies: Easy Bruising, Easy Bleeding VTE Information - Inpt Only VTE Present on Admission: No VTE Mechan Device Prophylaxis: None VTE Pharm Prophylaxis ordered?: Yes Patient Problems: Active and Suspected Problems (Last Updated 11/24/18 @ 09:02 by Haven Wu) COVID-19 (Acute) Hypoxemia (Acute) SARS (severe acute respiratory syndrome) (Acute) - Physical Exam Vitals/I&O's: Vital Signs Temp Pulse Resp BP Pulse Ox 98.5 F 89 21 H 115/78 95 06/06/20 22:05 06/06/20 22:05 06/06/20 22:05 06/06/20 22:05 06/06/20 22:05 Oxygen Flow Rate (L/min) 3 Oxygen Delivery Method Nasal Cannula Weight: 97.522 kg Body Mass Index (BMI) 31.7 General: Alert, Oriented x3, Cooperative HEENT: Atraumatic, PERRLA, EOMI, Normocephalic Neck: Supple, No JVD, Negative Carotid Bruits Lungs: Rales - Mild, Tachypneic Cardiovascular: Regular rate, Normal S1, Normal S2, No murmurs Abdomen: Bowel Sounds Present, Soft, Non Tender Extremities: No edema, Capillary Refill Less than 3 Seconds Skin: No rashes, No breakdown Musculoskeletal: No Tenderness to Palpation of Joints or Extremities Neurological: Cranial nerves II-XII grossly intact Psych/Mental Status: Anxious Laboratory Results 06/06/20 19:30: Fibrinogen 708 H, D-Dimer Quant (PE/DVT) 1.02 H* 06/06/20 19:30: Sodium 140, Potassium 3.9, Chloride 106, Carbon Dioxide 30.0, Anion Gap 4 L, BUN 11, Creatinine 1.38 H, Estim Creat Clear Calc 61.19, Est GFR (MDRD) Af Amer 69, Est GFR (MDRD) Non-Af 57 L, BUN/Creatinine Ratio 8.0 L, Glucose 126 H, Calcium 8.2 L, Total Bilirubin 0.40, AST 44 H, ALT 32, Alkaline Phosphatase 72, Total Creatine Kinase 219, Troponin I < 0.015, Total Protein 6.4, Albumin 3.0 L, Globulin 3.4, Albumin/Globulin Ratio 0.9 06/06/20 19:30: WBC 8.7, RBC 4.47 L, Hgb 13.6, Hct 41.0, MCV 91.7, MCH 30.4, MCHC 33.2, RDW Std Deviation 43.7, RDW Coeff of Rebecca 12.9, Plt Count 173, MPV 9.4, Immature Gran % (Auto) 0.700, Neut % (Auto) 84.4 H, Lymph % (Auto) 10.8 L, [place] % (Auto) 3.3, Eos % (Auto) 0.7, Baso % (Auto) 0.1, Absolute Neuts (auto) 7.4, Absolute Lymphs (auto) 0.94, Nucleated RBC % 0 06/06/20 19:30: Lactic Acid 1.3 Assessment/Plan All Active Problems (Last Updated 11/24/18 @ 09:02 by Haven Wu) COVID-19 (Acute) Hypoxemia (Acute) SARS (severe acute respiratory syndrome) (Acute) The patient is a 54 year old M with a significant history of childhood exercise induced asthma; allergies; depression; and hypertension who presents to the emergency department with a 14 days history of progressively worsening shortness of breath and with other Covid-like symptoms and with a positive Covid test outpatient Acute hypoxemic respiratory insufficiency secondary to SARS- COV 2 Reportedly her oxygen saturation was 82% % on room air at home; and 87% on room air at this the emergency department. Patient required 3 L of nasal cannula oxygen at the ED. Oxygen supplementation continued. Positive coronavirus test outpatient. Impression of chest x-ray by radiologist: Severe multifocal bilateral airspace opacities consistent with Covid pneumonia as clinically indicated. Actual chest x-ray image was independently interpreted. I agree radiologist interpretation. Dimer was elevated at 1.02. Follow-up chest CTA showed : No demonstrated pulmonary embolism or atrial dissection. Severe multifocal groundglass pulmon wiley opacities most consistent with Covid pneumonia. Mediastinal and hilar lymphadenopathy is nonspecific and may reactive to infectious process. Actual chest CT image was independently interpreted. I agree radiologist interpretation.. Procalcitonin was ordered and returned at 0.11 which means less likely for superimposed bacterial infection. Received dexamethasone IV at emergency department. Dexamethasone p.o. ordered. Creatinine clearance and liver biochemistry is appropriate to start remdesivir. Remdesivir ordered Senior Data Scientist and ID consult. Tylenol as needed for fever Mucinex ordered Hypertension Blood pressure is stable Bystolic and JOANNA receptor jasmeet continued. Trend blood pressure and adjust blood pressure medications. Elevated creatinine without diagnosis of CKD Patient with a slight creatinine bump. Trend. Depression Wellbutrin continued Allergies Zyrtec continued DVT prophylaxis Subcutaneous Lovenox Per Covid protocol Inpatient E&M: [id number] Init Hosp L3
--- NOTE | 2020-06-06 22:32 | ED.RN ---
SBARQ report called to Cleo PATINO, in ICU. NO further questions and is aware patient will be up shortly.
[2020-06-06 23:52] LABS: Procalcitonin 0.11 ng/mL (0.00-0.09)
[2020-06-06] MEDS: guaiFENesin 1,200 MG Tablet 1200 MG PO (23:57)
[2020-06-06] MEDS: Acetaminophen 325 MG Tablet 650 MG PO (23:57)
[2020-06-06] MEDS: CLARIFY ORDER 1 EACH NOTE (23:58)
[2020-06-07] VITALS (14 sets, daily range): BP systolic 98–126; BP diastolic 53–78; PULSE 84–99; RESP 14–21; TEMP 36.7–37.2; O2SAT 92–96
[2020-06-07 04:49] LABS: Absolute Lymphocyte Count 0.46 X10^3/uL (0.83-4.51); Absolute Neutrophil Count 8.5 X10^3/uL (2.0-7.7); Basophil# 0.01 X10^3/uL; Basophil% 0.1 % (0-1); Hemoglobin 13.3 g/dL (13.0-16.5); Lymphocyte # 0.46 X10^3/ul (4.0); Mean Corp Hgb Conc 33.3 g/dL (32-36); Mean Corpuscular Hgb 30.6 pg (27.0-32.0); Mean Platelet Vol. 9.8 fl (6.2-12.0); Monocyte# 0.16 X10^3/uL; Monocyte% 1.7 % (0-10); NRBC Flagged by Analyzer 0 % (0-5); Neutrophil # 8.48 X10^3/uL (2.7-7.7); Neutrophil % 92.2 % (47-70); POSITIVE DIFFERENTIAL YES; Platelet Count 174 K/mm3 (150-450); RBC Distribution Width CV 12.8 % (11.6-14.6); Red Blood Count 4.35 M/mm3 (4.6-6.2); White Blood Count 9.2 K/mm3 (4.4-11.0)
[2020-06-07 05:04] LABS: ALB/GLOB Ratio 0.8 RATIO (0.9-2.4); AST(SGOT) 44 U/L (15-37); Alanine Aminotransfer ALT/SGPT 33 U/L (16-61); Albumin, Serum 2.8 g/dL (3.2-5.0); Alkaline Phosphatase 73 U/L (45-117); Anion Gap 6 (5-15); BUN 12 mg/dL (7-18); BUN/Creat Ratio 11.1 RATIO (10-20); Calcium,Total 8.1 mg/dL (8.5-10.1); Chloride 106 mmol/L (98-107); Creatinine, Serum 1.08 mg/dL (0.70-1.30); EST Glomerular Filtration Rate 76 mL/min (>60); Est Glom Filt Rate - Afr Amer 91 mL/min (>60); Estimated Creatinine Clearance 78.19 ml/min; Globulin 3.6 g/dL (2.2-4.2); Glucose 141 mg/dL (74-106); Potassium 4.3 mmol/L (3.5-5.1); Protein, Total 6.4 g/dL (6.4-8.2); Sodium Level 139 mmol/L (136-145)
[2020-06-07 05:08] LABS: Differential Indicated SCAN CRITERIA MET
[2020-06-07 05:10] LABS: Differential Comment SCANNED
[2020-06-07] MEDS: Enoxaparin 30 MG/0.3 ML Syringe SC ×2 (08:46→21:41)
[2020-06-07] MEDS: dexAMETHasone 4 MG Tablet 6 MG PO (08:47)
[2020-06-07] MEDS: buPROPion (SR) 150 MG Tablet.SA PO ×2 (08:48→21:41)
[2020-06-07] MEDS: Loratadine 10 MG Tablet PO (08:48)
[2020-06-07] MEDS: Naproxen 500 MG Tablet PO ×2 (08:48→21:41)
[2020-06-07] MEDS: Losartan Potassium 50 MG Tablet PO (08:48)
[2020-06-07] MEDS: guaiFENesin 1,200 MG Tablet 1200 MG PO ×2 (08:48→21:41)
[2020-06-07] MEDS: Multivitamins,Therapeutic Tablet 1 TABLET PO (08:48)
[2020-06-07] MEDS: Pantoprazole Sodium 20 MG Tablet PO (08:48)
[2020-06-07] MEDS: Aspirin E.C. 81 MG Tablet PO (08:48)
--- NOTE | 2020-06-07 09:05 | PCM.CONS.PUL ---
Problem List (1) COVID-19 Status: Acute (2) Hypoxemia Status: Acute (3) History of vasectomy Status: Chronic (4) History of cholecystectomy Status: Chronic (5) History of colonoscopy Status: Chronic (6) History of esophagogastroduodenoscopy (EGD) Status: Chronic Comment: 10/12/18 (7) History of carpal tunnel release Status: Chronic (8) History of fusion of cervical spine Status: Chronic (9) Esophageal stricture Status: Chronic (10) GERD (gastroesophageal reflux disease) Status: Chronic Reason for Consult Date of Consultation: 06/07/20 Reason for Consultation: Hypoxia History of Present Illness: The patient is a 54 year old M, with past medical history listed below, who presented to [facility] on 06/06/2020 secondary to worsening shortness of breath. Patient reportedly started to develop symptoms approximately 14 days ago of headache that progressed with cough and shortness of breath. Patient checked his pulse oximetry at home and was found to be in the low 80s, so came to the ER for evaluation. Patient had reported some chest tightness, but no obvious pain. Patient did have a significant headache. Patient reportedly is not required oxygen at baseline previously. In the ER, patient was tachycardic at 100 bpm, but hypoxic at 87%. A chest x-ray was completed showing severe multifocal bilateral airspace opacities that were confirmed on CTA of the chest. No PE was noted, but patient did have mediastinal and hilar lymphadenopathy. Laboratory work-up showed a normal white blood cell count of 8.7 with hemoglobin of 13.6. Patient did have a slightly elevated D-dimer at 1.02 and pro calcitonin was 0.11. Troponin and chemistries were unremarkable. Lactate was within normal limits. Given requirements for supplemental oxygen, patient was admitted to the hospital for further evaluation. Since being in the intensive care unit, patient does report some improvement in his headache. Patient does not feel as short of breath compared to previous. Patient is still requiring supplemental oxygen to maintain saturations. Patient is reporting a cough that is nonproductive. Patient does report a [id number] smoking history, but quit sometime ago. Patient has never had a pulmonary function test or required inhalers previously. Patient denies previous hospitalization for respiratory problems. Patient does drink alcohol regularly, but is never had withdrawal type symptoms. Patient denies any illicit drugs, exposure to asbestos or TB. 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 Review of systems otherwise negative from a constitutional, HEENT, respiratory, cardiovascular, GI, genitourinary, musculoskeletal, skin, neurologic, psychiatric and hematologic system unless stated above. Past Medical History Past Medical History (Chronic Problems): Chronic Problems (Last Reviewed 06/07/20 @ 03:[address] Abdon Fernandez MD) History of vasectomy (Chronic) History of cholecystectomy (Chronic ~2007) History of colonoscopy (Chronic ~2015) History of esophagogastroduodenoscopy (EGD) (Chronic) 10/12/18 History of carpal tunnel release (Chronic) History of fusion of cervical spine (Chronic) Back pain (Chronic) Anxiety (Chronic) Cardiac murmur (Chronic) Esophageal stricture (Chronic) GERD (gastroesophageal reflux disease) (Chronic) Medical History: Medical History (Last Reviewed 06/07/20 @ 03:[address] Abdon Fernandez MD) Back pain (Chronic) M54.9 Anxiety (Chronic) F41.9 Cardiac murmur (Chronic) R01.1 Esophageal stricture (Chronic) K22.2 GERD (gastroesophageal reflux disease) (Chronic) K21.9 History of esophageal dilatation Onset Date: ~09/2018 Z98.890 Allergies Penicillins Allergy (Verified 06/02/20 21:31) Unknown Home Medications: Ambulatory Orders Medication Instructions Recorded Cetirizine HCl [Zyrtec] 10 mg PO DAILY 02/06/15 Multivitamins,Therapeutic 1 tab PO DAILY 02/06/15 [Multivitamin] buPROPion SR [Wellbutrin Sr] 150 mg PO BID 02/06/15 Aspirin [Aspir-Low] 81 mg PO DAILY 05/17/16 Cholecalciferol (Vitamin D3) 50,000 unit PO QWEEK 05/17/16 [Vitamin D3] Nebivolol HCl [Bystolic] 5 mg PO DAILY 05/17/16 Tadalafil [Cialis] 10 mg PO DAILY 05/17/16 Albuterol Inhaler [Ventolin Hfa 1 - 2 puff INHALATION Q6H PRN PRN 10/25/16 (SP)] Irbesartan [Avapro] 150 mg PO DAILY 06/02/20 Naproxen [Naprosyn] 500 mg PO BID #14 tab 06/02/20 Omeprazole [Prilosec] 20 mg PO DAILY 06/02/20 Ondansetron [Zofran Odt] 4 mg PO Q8H PRN PRN #10 tab 06/02/20 Surgical History: Surgical History (Last Reviewed 06/07/20 @ 03:[address] Abdon Fernandez MD) History of vasectomy (Chronic) Z98.52 History of cholecystectomy (Chronic) Onset Date: ~2007 Z90.49 History of colonoscopy (Chronic) Onset Date: ~2015 Z98.890 History of esophagogastroduodenoscopy (EGD) (Chronic) Z98.890 10/12/18 History of carpal tunnel release (Chronic) Z98.890 History of fusion of cervical spine (Chronic) Z98.1 History of esophagogastroduodenoscopy (EGD) Onset Date: ~09/2018 Z98.890 Surgical History: cholecystectomy Lives: Spouse/ Significant Other Smoking Status: Former smoker Tobacco Use: Non-smoker Drugs: None - *Family History Maternal Family History: Family History (Last Reviewed 06/07/20 @ 03:[address] Abdon Fernandez MD) Father Hypertension Alzheimer disease Mother Breast cancer Review of Systems Comment: See HPI Patient Problems: Active and Suspected Problems (Last Reviewed 06/07/20 @ 03:[address] Abdon Fernandez MD) COVID-19 (Acute) Hypoxemia (Acute) SARS (severe acute respiratory syndrome) (Acute) Objective: All imaging was personally reviewed. Agree with formal interpretation. Patient did have an echocardiogram in 2017 showing an EF of 60% with mild aortic stenosis and a reported aortic valve area of 1.3 cm?. No pulmonary hypertension noted at that time. - Physical Exam Vitals/I&O's: Vital Signs Temp Pulse Resp BP Pulse Ox 36.9 C 99 21 H 122/78 H 93 06/07/20 04:00 06/07/20 07:59 06/07/20 04:00 06/07/20 04:00 06/07/20 04:00 Oxygen Flow Rate (L/min) 3 Oxygen Delivery Method Nasal Cannula Weight: 100.9 kg Body Mass Index (BMI) 32.8 Intake and Output for Last 24 Hours 06/05/20 06/06/20 06/07/20 23:59 23:59 23:59 Intake Total 350 / 350 Balance 350 / 350 General: Alert, Oriented x3, Cooperative, No apparent distress, - - Obese. Speaking in full sentences. HEENT: Atraumatic, PERRLA, EOMI, Normocephalic, - - No scleral icterus or injection noted Oral: Moist Mucosa, No Gingival or Mucosal Lesions/ Ulcerations Neck: Supple, No JVD, No Nodes, Trachea Midline Lungs: No rhonchi, No wheeze, No rales, Diminished, - - Symmetric expansion Cardiovascular: Normal S1, Normal S2, Murmur - Grade 2 out of 6 systolic ejection murmur at the right sternal border, No rub noted, No Gallop Abdomen: Bowel Sounds Present, Soft, Non Tender, Non-Distended Extremities: No clubbing, No cyanosis, No edema, Capillary Refill Less than 3 Seconds Skin: No rashes, No breakdown Musculoskeletal: No Tenderness to Palpation of Joints or Extremities Lymphatic: No Cervical, Supraclavicular, or Inguinal Adenopathy Neurological: Cranial nerves II-XII grossly intact, Neuro grossly intact, Motor Exam 5/5 strength throughout Psych/Mental Status: Alert and oriented to time, place, person, mood and affect Microbiology Past 72 Hours 06/06/20 23:35 Mucosa - Nasopharyngeal Respiratory Panel (PCR) - Final Laboratory Results 06/06/20 19:30: Fibrinogen 708 H, D-Dimer Quant (PE/DVT) 1.02 H* 06/06/20 19:30: Sodium 140, Potassium 3.9, Chloride 106, Carbon Dioxide 30.0, Anion Gap 4 L, BUN 11, Creatinine 1.38 H, Estim Creat Clear Calc 61.19, Est GFR (MDRD) Af Amer 69, Est GFR (MDRD) Non-Af 57 L, BUN/Creatinine Ratio 8.0 L, Glucose 126 H, Calcium 8.2 L, Total Bilirubin 0.40, AST 44 H, ALT 32, Alkaline Phosphatase 72, Total Creatine Kinase 219, Troponin I < 0.015, Total Protein 6.4, Albumin 3.0 L, Globulin 3.4, Albumin/Globulin Ratio 0.9 06/06/20 19:30: WBC 8.7, RBC 4.47 L, Hgb 13.6, Hct 41.0, MCV 91.7, MCH 30.4, MCHC 33.2, RDW Std Deviation 43.7, RDW Coeff of Rebecca 12.9, Plt Count 173, MPV 9.4, Immature Gran % (Auto) 0.700, Neut % (Auto) 84.4 H, Lymph % (Auto) 10.8 L, [place] % (Auto) 3.3, Eos % (Auto) 0.7, Baso % (Auto) 0.1, Absolute Neuts (auto) 7.4, Absolute Lymphs (auto) 0.94, Nucleated RBC % 0 06/06/20 19:30: Lactic Acid 1.3 06/06/20 19:30: Procalcitonin 0.11 H 06/07/20 04:40: WBC 9.2, RBC 4.35 L, Hgb 13.3, Hct 40.0, MCV 92.0, MCH 30.6, MCHC 33.3, RDW Std Deviation 43.0, RDW Coeff of Rebecca 12.8, Plt Count 174, MPV 9.8, Immature Gran % (Auto) 1.000 H, Neut % (Auto) 92.2 H, Lymph % (Auto) 5.0 L, [place] % (Auto) 1.7, Eos % (Auto) 0.0, Baso % (Auto) 0.1, Absolute Neuts (auto) 8.5 H, Absolute Lymphs (auto) 0.46 L, Nucleated RBC % 0, Differential Comment SCANNED 06/07/20 04:40: Sodium 139, Potassium 4.3, Chloride 106, Carbon Dioxide 27.0, Anion Gap 6, BUN 12, Creatinine 1.08, Estim Creat Clear Calc 78.19, Est GFR (MDRD) Af Amer 91, Est GFR (MDRD) Non-Af 76, BUN/Creatinine Ratio 11.1, Glucose 141 H, Calcium 8.1 L, Total Bilirubin 0.40, AST 44 H, ALT 33, Alkaline Phosphatase 73, Total Protein 6.4, Albumin 2.8 L, Globulin 3.6, Albumin/Globulin Ratio 0.8 L Current Medications Acetaminophen (Acetaminophen 325 Mg Tablet) 650 mg PO Q6H PRN PRN PRN Reason: Pain Score 1-10/Temp > 100.7 F Last Admin: 06/06/20 23:57 Dose: 650 mg Documented by: Albuterol Sulfate (Albuterol Ih 8.5 Gm (Proair) Inhaler (200 Puffs)) 2 puff INHALATION Q4H PRN PRN PRN Reason: sob/wheezing Aspirin (Aspirin E.C. 81 Mg Tablet) 81 mg PO DAILY [facility] Last Admin: 06/07/20 08:48 Dose: 81 mg Documented by: Bupropion HCl (Bupropion (Sr) 150 Mg Tablet.Sa) 150 mg PO BID [facility] Last Admin: 06/07/20 08:48 Dose: 150 mg Documented by: Dexamethasone (Dexamethasone 4 Mg Tablet) 6 mg PO DAILY [facility] Last Admin: 06/07/20 08:47 Dose: 6 mg Documented by: Enoxaparin Sodium (Enoxaparin 30 Mg/0.3 Ml Syringe) 30 mg SC BID [facility] Last Admin: 06/07/20 08:46 Dose: 30 mg Documented by: Ergocalciferol (Ergocalciferol 50,000 Unit Capsule) 50,000 unit PO QWEEK [facility] Guaifenesin (Guaifenesin 1,200 Mg Tablet) 1,200 mg PO BID [facility] Last Admin: 06/07/20 08:48 Dose: 1,200 mg Documented by: Remdesivir 100 mg/ Sodium (Chloride) 250 mls @ 125 mls/hr IV Q24H [facility] Stop: 06/10/20 23:59 Sodium Chloride () 250 mls @ 15 mls/hr IV .[id number] PRN PRN Reason: Saline Flush Sodium Chloride () 250 mls @ 15 mls/hr IV .[id number] PRN PRN Reason: Additional IVPB Infusion Loratadine (Loratadine 10 Mg Tablet) 10 mg PO DAILY [facility] Last Admin: 06/07/20 08:48 Dose: 10 mg Documented by: Losartan Potassium (Losartan Potassium 50 Mg Tablet) 50 mg PO DAILY [facility] Last Admin: 06/07/20 08:48 Dose: 50 mg Documented by: Melatonin (Melatonin 3 Mg Tablet) 3 mg PO QHS PRN PRN PRN Reason: INSOMNIA Multivitamins (Multivitamins,Therapeutic Tablet) 1 tablet PO DAILY [facility] Last Admin: 06/07/20 08:48 Dose: 1 tablet Documented by: Naproxen (Naproxen 500 Mg Tablet) 500 mg PO BID [facility] Last Admin: 06/07/20 08:48 Dose: 500 mg Documented by: Nebivolol (Nebivolol Hcl 5 Mg Tablet) 5 mg PO DAILY [facility] Last Admin: 06/07/20 08:47 Dose: 5 mg Documented by: Ondansetron HCl (Ondansetron 4 Mg/2 Ml Vial) 4 mg IV Q8H PRN PRN PRN Reason: NAUSEA/VOMITING Pantoprazole Sodium (Pantoprazole Sodium 20 Mg Tablet) 20 mg PO DAILY [facility] Last Admin: 06/07/20 08:48 Dose: 20 mg Documented by: Senna/Docusate Sodium (Senna/Docusate Sodium 1 Tablet) 2 tablet PO BID PRN PRN PRN Reason: Constipation Sodium Chloride (0.9% Saline Lock 10 Ml Syringe) 10 - 40 ml IV UD PRN PRN Reason: SALINE FLUSH Clinical Impression(s) from Imaging Studies Chest X-Ray 06/06/20 20:10 IMPRESSION: Severe multifocal bilateral airspace opacities consistent with Covid pneumonia as clinically indicated. Electronically Signed: Neftaly Woods MD at 21:02 EST Tel , Service support , Chest CTA 06/06/20 20:31 IMPRESSION: No demonstrated pulmonary embolism or arterial dissection. Severe multifocal groundglass pulmonary opacities most consistent with Covid pneumonia. Mediastinal and hilar lymphadenopathy is nonspecific and may be reactive to infectious process. Electronically Signed: Neftaly Woods MD at 21:31 EST Tel , Service support , Assessment/Plan All Active Problems (Last Reviewed 06/07/20 @ 03:[address] Abdon Fernandez MD) COVID-19 (Acute) Hypoxemia (Acute) SARS (severe acute respiratory syndrome) (Acute) RECOMMENDATIONS: 1. Remdesivir per infectious disease. Okay to continue with Decadron 2. Monitor blood sugars with BMP, may need sliding scale insulin 3. Encourage incentive spirometer and activity as tolerated 4. Walking oximetry prior to discharge. Wean oxygen as tolerated 5. Outpatient complete pulmonary function test IMPRESSIONS: 1. Acute hypoxic respiratory insufficiency secondary to COVID-19 pneumonia Patient with significant infiltrates and groundglass opacities noted on CT of the chest. Mediastinal and hilar lymphadenopathy likely secondary to acute infectious etiology. Patient may benefit from a repeat CT scan in the future to ensure resolution. Patient does have a significant smoking history, so outpatient pulmonary function tests are likely also indicated. Patient should have aggressive pulmonary recruitment measures such as incentive spirometer and activity as tolerated. Wean oxygen as tolerated. Patient will need a walking oximetry prior to discharge. Will defer Remdesivir to infectious disease. Okay to continue with Decadron for now. Will monitor with daily labs, but may need to initiate sliding scale insulin given obesity and steroid use. 2. Suspected chronic bronchitis versus asthma Patient does have a [id number] smoking history. Patient does not appear to have significant emphysematous changes on CT of the chest. However, chronic bronchitis versus asthma would be a consideration. Patient would benefit from an outpatient work-up with pulmonary function test for quantification clarification of lung function. This may account for the need for supplemental oxygen at this time 3. Aortic stenosis/obesity/hypertension Complicates care, management, recovery and prognosis. Patient does not appear to be volume overloaded at this time. Okay to continue with baseline medications from my perspective. May need to discontinue naproxen and ARB if develops renal insufficiency. Inpatient E&M: 45257 Init Hosp L3
--- NOTE | 2020-06-07 09:19 | PN_ITS ---
Patient Problems: Active and Suspected Problems (Last Reviewed 06/07/20 @ 03:[address] Abdon Fernandez MD) COVID-19 (Acute) Hypoxemia (Acute) SARS (severe acute respiratory syndrome) (Acute) Subjective: Chief complaint: Follow-up after admission for acute bilateral COVID-19 pneumonia and acute hypoxic respiratory insufficiency. Patient seen and examined. No acute events overnight. Today, he reported minimal improvement of his shortness of breath, still having cough, no sputum production. No fever or chills. He remains on 3 L of oxygen, other vital signs are stable. - Physical Exam Vitals/I&O's: Vital Signs Temp Pulse Resp BP Pulse Ox 98.4 F 99 21 H 122/78 H 93 06/07/20 04:00 06/07/20 07:59 06/07/20 04:00 06/07/20 04:00 06/07/20 04:00 Oxygen Flow Rate (L/min) 3 Oxygen Delivery Method Nasal Cannula Weight: 222 lb 7.143 oz Body Mass Index (BMI) 32.8 Intake and Output for Last 24 Hours 06/05/20 06/06/20 06/07/20 23:59 23:59 23:59 Intake Total 350 / 350 Balance 350 / 350 General: Alert, Oriented x3, Cooperative, No apparent distress HEENT: Atraumatic, PERRLA, Normocephalic Oral: Moist Mucosa, No Gingival or Mucosal Lesions/ Ulcerations Neck: Supple, No JVD, Negative Carotid Bruits, Trachea Midline, Thyroid Normal Size and Texture Lungs: No rhonchi, No wheeze, Diminished, Rales, - - Decreased breath sounds bilateral, faint crackles. Cardiovascular: Regular rate, Regular Rhythm, Normal S1, Normal S2, PMI Normal, Murmur - Systolic murmur. Abdomen: Bowel Sounds Present, Soft, Non Tender, Non-Distended, No Hepato- splenomegaly Extremities: No clubbing, No cyanosis, No edema Skin: No rashes, No breakdown Lymphatic: No Cervical, Supraclavicular, or Inguinal Adenopathy Neurological: Cranial nerves II-XII grossly intact, Motor Exam 5/5 strength throughout Psych/Mental Status: Normal Affect, Appropriate, Alert and oriented to time, place, person, mood and affect Microbiology Past 72 Hours 06/06/20 23:35 Mucosa - Nasopharyngeal Respiratory Panel (PCR) - Final Laboratory Results 06/06/20 19:30: Fibrinogen 708 H, D-Dimer Quant (PE/DVT) 1.02 H* 06/06/20 19:30: Sodium 140, Potassium 3.9, Chloride 106, Carbon Dioxide 30.0, Anion Gap 4 L, BUN 11, Creatinine 1.38 H, Estim Creat Clear Calc 61.19, Est GFR (MDRD) Af Amer 69, Est GFR (MDRD) Non-Af 57 L, BUN/Creatinine Ratio 8.0 L, Glucose 126 H, Calcium 8.2 L, Total Bilirubin 0.40, AST 44 H, ALT 32, Alkaline Phosphatase 72, Total Creatine Kinase 219, Troponin I < 0.015, Total Protein 6.4, Albumin 3.0 L, Globulin 3.4, Albumin/Globulin Ratio 0.9 06/06/20 19:30: WBC 8.7, RBC 4.47 L, Hgb 13.6, Hct 41.0, MCV 91.7, MCH 30.4, MCHC 33.2, RDW Std Deviation 43.7, RDW Coeff of Rebecca 12.9, Plt Count 173, MPV 9.4, Immature Gran % (Auto) 0.700, Neut % (Auto) 84.4 H, Lymph % (Auto) 10.8 L, [place] % (Auto) 3.3, Eos % (Auto) 0.7, Baso % (Auto) 0.1, Absolute Neuts (auto) 7.4, Absolute Lymphs (auto) 0.94, Nucleated RBC % 0 06/06/20 19:30: Lactic Acid 1.3 06/06/20 19:30: Procalcitonin 0.11 H 06/07/20 04:40: WBC 9.2, RBC 4.35 L, Hgb 13.3, Hct 40.0, MCV 92.0, MCH 30.6, MCHC 33.3, RDW Std Deviation 43.0, RDW Coeff of Rebecca 12.8, Plt Count 174, MPV 9.8, Immature Gran % (Auto) 1.000 H, Neut % (Auto) 92.2 H, Lymph % (Auto) 5.0 L, [place] % (Auto) 1.7, Eos % (Auto) 0.0, Baso % (Auto) 0.1, Absolute Neuts (auto) 8.5 H, Absolute Lymphs (auto) 0.46 L, Nucleated RBC % 0, Differential Comment SCANNED 06/07/20 04:40: Sodium 139, Potassium 4.3, Chloride 106, Carbon Dioxide 27.0, Anion Gap 6, BUN 12, Creatinine 1.08, Estim Creat Clear Calc 78.19, Est GFR (MDRD) Af Amer 91, Est GFR (MDRD) Non-Af 76, BUN/Creatinine Ratio 11.1, Glucose 141 H, Calcium 8.1 L, Total Bilirubin 0.40, AST 44 H, ALT 33, Alkaline Phosphatase 73, Total Protein 6.4, Albumin 2.8 L, Globulin 3.6, Albumin/Globulin Ratio 0.8 L Clinical Impression(s) from Imaging Studies Chest X-Ray 06/06/20 20:10 IMPRESSION: Severe multifocal bilateral airspace opacities consistent with Covid pneumonia as clinically indicated. Electronically Signed: Neftaly Woods MD at 21:02 EST Tel , Service support , Chest CTA 06/06/20 20:31 IMPRESSION: No demonstrated pulmonary embolism or arterial dissection. Severe multifocal groundglass pulmonary opacities most consistent with Covid pneumonia. Mediastinal and hilar lymphadenopathy is nonspecific and may be reactive to infectious process. Electronically Signed: Neftaly Woods MD at 21:31 EST Tel , Service support , Current Medications Acetaminophen (Acetaminophen 325 Mg Tablet) 650 mg PO Q6H PRN PRN PRN Reason: Pain Score 1-10/Temp > 100.7 F Last Admin: 06/06/20 23:57 Dose: 650 mg Documented by: Albuterol Sulfate (Albuterol Ih 8.5 Gm (Proair) Inhaler (200 Puffs)) 2 puff INHALATION Q4H PRN PRN PRN Reason: sob/wheezing Aspirin (Aspirin E.C. 81 Mg Tablet) 81 mg PO DAILY [facility] Last Admin: 06/07/20 08:48 Dose: 81 mg Documented by: Bupropion HCl (Bupropion (Sr) 150 Mg Tablet.Sa) 150 mg PO BID [facility] Last Admin: 06/07/20 08:48 Dose: 150 mg Documented by: Dexamethasone (Dexamethasone 4 Mg Tablet) 6 mg PO DAILY [facility] Last Admin: 06/07/20 08:47 Dose: 6 mg Documented by: Enoxaparin Sodium (Enoxaparin 30 Mg/0.3 Ml Syringe) 30 mg SC BID [facility] Last Admin: 06/07/20 08:46 Dose: 30 mg Documented by: Ergocalciferol (Ergocalciferol 50,000 Unit Capsule) 50,000 unit PO QWEEK [facility] Guaifenesin (Guaifenesin 1,200 Mg Tablet) 1,200 mg PO BID [facility] Last Admin: 06/07/20 08:48 Dose: 1,200 mg Documented by: Remdesivir 100 mg/ Sodium (Chloride) 250 mls @ 125 mls/hr IV Q24H [facility] Stop: 06/10/20 23:59 Sodium Chloride () 250 mls @ 15 mls/hr IV .[id number] PRN PRN Reason: Saline Flush Sodium Chloride () 250 mls @ 15 mls/hr IV .[id number] PRN PRN Reason: Additional IVPB Infusion Loratadine (Loratadine 10 Mg Tablet) 10 mg PO DAILY [facility] Last Admin: 06/07/20 08:48 Dose: 10 mg Documented by: Losartan Potassium (Losartan Potassium 50 Mg Tablet) 50 mg PO DAILY [facility] Last Admin: 06/07/20 08:48 Dose: 50 mg Documented by: Melatonin (Melatonin 3 Mg Tablet) 3 mg PO QHS PRN PRN PRN Reason: INSOMNIA Multivitamins (Multivitamins,Therapeutic Tablet) 1 tablet PO DAILY [facility] Last Admin: 06/07/20 08:48 Dose: 1 tablet Documented by: Naproxen (Naproxen 500 Mg Tablet) 500 mg PO BID [facility] Last Admin: 06/07/20 08:48 Dose: 500 mg Documented by: Nebivolol (Nebivolol Hcl 5 Mg Tablet) 5 mg PO DAILY [facility] Last Admin: 06/07/20 08:47 Dose: 5 mg Documented by: Ondansetron HCl (Ondansetron 4 Mg/2 Ml Vial) 4 mg IV Q8H PRN PRN PRN Reason: NAUSEA/VOMITING Pantoprazole Sodium (Pantoprazole Sodium 20 Mg Tablet) 20 mg PO DAILY [facility] Last Admin: 02/17/21 08:48 Dose: 20 mg Documented by: Senna/Docusate Sodium (Senna/Docusate Sodium 1 Tablet) 2 tablet PO BID PRN PRN PRN Reason: Constipation Sodium Chloride (0.9% Saline Lock 10 Ml Syringe) 10 - 40 ml IV UD PRN PRN Reason: SALINE FLUSH Medical Necessity - Tobacco Use Smoking Status: Former smoker Tobacco Use: Non-smoker Assessment/Plan All Active Problems (Last Reviewed 06/07/20 @ 03:[address] Abdon Fernandez MD) COVID-19 (Acute) Hypoxemia (Acute) SARS (severe acute respiratory syndrome) (Acute) This is a 54 years old male patient presented to the emergency room because of progressively increasing shortness of breath with onset of symptoms around 15 days ago, tested positive for COVID-19 11 days ago, found to have extensive bilateral focal infiltrate on chest x-ray and CTA chest consistent with acute bilateral COVID-19 pneumonia which complicated by hypoxemia. #1 acute bilateral COVID-19 pneumonia: Chest x-ray and CTA chest reviewed. D- dimer was elevated, CTA showed no PE or dissection. He is on p.o. Decadron and IV remdesivir. Currently, he is on 3 L of oxygen, other vital signs are stable. Routine blood work was unremarkable as well as LFT. Procalcitonin was elevated. Troponin was negative. Lactic acid was normal. Infectious disease and pulmonology consulted. Plan to continue same treatment, repeat CBC and CMP tomorrow morning. #2 acute hypoxic respiratory sufficiency: Secondary to #1. Currently, he is on 3 L of oxygen. He does not use home oxygen. Plan as above. #3 hypertension: Blood pressure stable, continue losartan and Bystolic. #4 GERD: Stable, continue Protonix. #5 depression: Stable, continue Wellbutrin. #6 DVT prophylaxis: Subcu Lovenox twice daily. This note was generated with [employer] dictation software. It may contain incorrect words, spelling, and punctuation that were not noted in checking the note before signing. Inpatient E&M: 67599 Subs Hosp L2
--- NOTE | 2020-06-07 10:35 | CASEMGMT ---
Addendum entered by Igor Perez 06/07/20 10:48: Pt states he had COVID testing done @ [facility] in [place]. He states his just got her results back over the weekend and she also has COVID, but he states she is doing well with it. She has a little bit of a cough and a little headache. Their adult children live nearby and can bring groceries/supplies. They have many masks, hand information tech, and disinfectants. Original Note: RN JENNIFER RAILROAD SIGNAL OPERATOR JENNIFER placed call to pt's room for initial transition planning/care coordination assessment. SUKUMAR RODRIGUEZ introduced self and role at [facility]. Pt voices understanding and consents to assessment at this time. Pt is A/O at this time and answers all questions appropriately. Care providers, pharmacy, and demographics verified/updated at this time. PCP: Dr Robbin Vanegas Specialists: Dr Tavarez-urology Preferred Pharmacy: [facility] Retail Insurance: [place] Prescription Benefit: Yes Living Will/HPOA: Does not have LW. Does have a Healthcare POA, who is his , Sailaja. LNOK: , Sailaja Living Arrangements: Lives with his , Sailaja, in multi-level home. Independent w/ADL's. /pt share home mgmt tasks. Pt works full-time Transportation: Pt states drives self and states no transportation concerns at this time. also drives DME: Denies using any DME and denies needs. If qualifies for home O2 @ discharge, pt denies having preference of DME co. Reviewed list of local DME companies and made aware [employer] is affiliated with [facility]. Pt chooses [employer]. HHC/SNF: No history of either and no needs identified. Pt wishes to return home and states has no concerns with going home at time of discharge. CM to follow for home oxygen needs and any discharge planning/needs. Pt voices no concerns/needs at this time. Advised pt to ask for CM if any questions/concerns/needs arise. Voices understanding. PLAN: Home w/ and discharge plans in place. May need home oxygen testing completed prior to discharge. Cristy BE RN, CM
--- NOTE | 2020-06-07 12:49 | CON.PCM_ITS ---
Problem List (1) COVID-19 Status: Acute Reason for Consult: covid Consulted by: Dr. Fernandez History of Present Illness: The patient is a 54 year old M presented with covid sx since 05/24. C/o fever, chills, severe headache, some sore throat, change in sense of smell, mild nausea/diarrhea, some aches. Tested (+) 2/. Had progressive cough and dyspnea. Pulse ox at home was 82%, went to ED. also sick with covid, not as sick. He still has headache, fatigue, change in smell, some aches. Admitted last night, started on dex, remdesivir. Seen by pulm this AM, feeling a little better. Full ROS performed and neg except as noted above. - Medical History Past Medical History (Chronic Problems): Chronic Problems (Last Reviewed 06/07/20 @ 03:[address] Abdon Fernandez MD) History of vasectomy (Chronic) History of cholecystectomy (Chronic ~2007) History of colonoscopy (Chronic ~2015) History of esophagogastroduodenoscopy (EGD) (Chronic) 10/12/18 History of carpal tunnel release (Chronic) History of fusion of cervical spine (Chronic) Back pain (Chronic) Anxiety (Chronic) Cardiac murmur (Chronic) Esophageal stricture (Chronic) GERD (gastroesophageal reflux disease) (Chronic) Allergies/Adverse Reactions: Allergies Penicillins Allergy (Verified 06/02/20 21:31) Unknown Home Medications: Ambulatory Orders Medication Instructions Recorded Cetirizine HCl [Zyrtec] 10 mg PO DAILY 02/06/15 Multivitamins,Therapeutic 1 tab PO DAILY 02/06/15 [Multivitamin] buPROPion SR [Wellbutrin Sr] 150 mg PO BID 02/06/15 Aspirin [Aspir-Low] 81 mg PO DAILY 05/17/16 Cholecalciferol (Vitamin D3) 50,000 unit PO QWEEK 05/17/16 [Vitamin D3] Nebivolol HCl [Bystolic] 5 mg PO DAILY 05/17/16 Tadalafil [Cialis] 10 mg PO DAILY 05/17/16 Albuterol Inhaler [Ventolin Hfa 1 - 2 puff INHALATION Q6H PRN PRN 10/25/16 (SP)] Irbesartan [Avapro] 150 mg PO DAILY 06/02/20 Naproxen [Naprosyn] 500 mg PO BID #14 tab 06/02/20 Omeprazole [Prilosec] 20 mg PO DAILY 06/02/20 Ondansetron [Zofran Odt] 4 mg PO Q8H PRN PRN #10 tab 06/02/20 - Social History SMOKING STATUS:: Former smoker Vital Signs Temp Pulse Resp BP Pulse Ox 98.1 F 97 20 H 119/70 94 06/07/20 10:00 06/07/20 11:43 06/07/20 10:00 06/07/20 10:00 06/07/20 10:00 Oxygen Flow Rate (L/min) 2 Oxygen Delivery Method Nasal Cannula Weight: 100.9 kg Body Mass Index (BMI) 32.8 Microbiology Past 72 Hours 06/06/20 23:35 Respiratory Panel (PCR) - Final Mucosa - Nasopharyngeal Laboratory Tests Past 24 Hrs 06/06/20 06/06/20 06/06/20 19:30 19:30 19:30 WBC 8.7 RBC 4.47 L Hgb 13.6 Hct 41.0 MCV 91.7 MCH 30.4 MCHC 33.2 RDW Std Deviation 43.7 RDW Coeff of Rebecca 12.9 Plt Count 173 MPV 9.4 Immature Gran % (Auto) 0.700 Neut % (Auto) 84.4 H Lymph % (Auto) 10.8 L Morgan % (Auto) 3.3 Eos % (Auto) 0.7 Baso % (Auto) 0.1 Absolute Neuts (auto) 7.4 Absolute Lymphs (auto) 0.94 Nucleated RBC % 0 Differential Comment Fibrinogen 708 H D-Dimer Quant (PE/DVT) 1.02 H* Sodium 140 Potassium 3.9 Chloride 106 Carbon Dioxide 30.0 Anion Gap 4 L BUN 11 Creatinine 1.38 H Estim Creat Clear Calc 61.19 Est GFR (MDRD) Af Amer 69 Est GFR (MDRD) Non-Af 57 L BUN/Creatinine Ratio 8.0 L Glucose 126 H Lactic Acid Calcium 8.2 L Total Bilirubin 0.40 AST 44 H ALT 32 Alkaline Phosphatase 72 Total Creatine Kinase 219 Troponin I < 0.015 Total Protein 6.4 Albumin 3.0 L Globulin 3.4 Albumin/Globulin Ratio 0.9 Procalcitonin 06/06/20 06/06/20 06/07/20 19:30 19:30 04:40 WBC 9.2 RBC 4.35 L Hgb 13.3 Hct 40.0 MCV 92.0 MCH 30.6 MCHC 33.3 RDW Std Deviation 43.0 RDW Coeff of Rebecca 12.8 Plt Count 174 MPV 9.8 Immature Gran % (Auto) 1.000 H Neut % (Auto) 92.2 H Lymph % (Auto) 5.0 L Morgan % (Auto) 1.7 Eos % (Auto) 0.0 Baso % (Auto) 0.1 Absolute Neuts (auto) 8.5 H Absolute Lymphs (auto) 0.46 L Nucleated RBC % 0 Differential Comment SCANNED Fibrinogen D-Dimer Quant (PE/DVT) Sodium Potassium Chloride Carbon Dioxide Anion Gap BUN Creatinine Estim Creat Clear Calc Est GFR (MDRD) Af Amer Est GFR (MDRD) Non-Af BUN/Creatinine Ratio Glucose Lactic Acid 1.3 Calcium Total Bilirubin AST ALT Alkaline Phosphatase Total Creatine Kinase Troponin I Total Protein Albumin Globulin Albumin/Globulin Ratio Procalcitonin 0.11 H 06/07/20 04:40 WBC RBC Hgb Hct MCV MCH MCHC RDW Std Deviation RDW Coeff of Rebecca Plt Count MPV Immature Gran % (Auto) Neut % (Auto) Lymph % (Auto) Morgan % (Auto) Eos % (Auto) Baso % (Auto) Absolute Neuts (auto) Absolute Lymphs (auto) Nucleated RBC % Differential Comment Fibrinogen D-Dimer Quant (PE/DVT) Sodium 139 Potassium 4.3 Chloride 106 Carbon Dioxide 27.0 Anion Gap 6 BUN 12 Creatinine 1.08 Estim Creat Clear Calc 78.19 Est GFR (MDRD) Af Amer 91 Est GFR (MDRD) Non-Af 76 BUN/Creatinine Ratio 11.1 Glucose 141 H Lactic Acid Calcium 8.1 L Total Bilirubin 0.40 AST 44 H ALT 33 Alkaline Phosphatase 73 Total Creatine Kinase Troponin I Total Protein 6.4 Albumin 2.8 L Globulin 3.6 Albumin/Globulin Ratio 0.8 L Procalcitonin - Other Studies Radiology: [] reviewed Other Studies: [] Route of nutrition/ use of supplements: [] Nutritional Intake: [] IV Site: [] Gallardo Catheter: [] - Physical Exam General: Alert, Oriented x3, Cooperative, No apparent distress HEENT: Atraumatic, PERRLA, EOMI Neck: Supple, No Nodes Lungs: Clear to auscultation, Diminished Cardiovascular: Regular rate, Regular Rhythm Abdomen: Soft, Non Tender, Non-Distended Extremities: No edema Skin: No rashes IV Site: Peripheral, without redness Musculoskeletal: No Tenderness to Palpation of Joints or Extremities Neurological: Cranial nerves II-XII grossly intact - Assessment/Plan Antibiotics: [] Assessment/Plan: [] Active and Suspected Problems (Last Reviewed 06/07/20 @ 03:[address] Abdon Fernandez MD) COVID-19 (Acute) Hypoxemia (Acute) SARS (severe acute respiratory syndrome) (Acute) covid with hypoxia - sx since 05/24. On dex, remdesivir, bid lovenox 30mg. also with covid. D-dimer was 1. On 2L. No PE seen on CTA. Plan on quarantine until 06/13/20, 10 days of dex, home O2 as needed. Will follow, thank you, d/w hospitalist last night
[2020-06-08] VITALS (11 sets, daily range): BP systolic 104–130; BP diastolic 56–76; PULSE 77–95; RESP 16–18; TEMP 36.7–37.1; O2SAT 92–96
[2020-06-08 04:54] LABS: Absolute Lymphocyte Count 1.05 X10^3/uL (0.83-4.51); Absolute Neutrophil Count 7.9 X10^3/uL (2.0-7.7); Basophil# 0.02 X10^3/uL; Basophil% 0.2 % (0-1); Hematocrit 40.9 % (40-54); Hemoglobin 13.5 g/dL (13.0-16.5); Lymphocyte # 1.05 X10^3/ul (4.0); Lymphocyte % 10.9 % (19-41); Mean Corpuscular Hgb 30.3 pg (27.0-32.0); Mean Corpuscular Volume 91.7 fL (80-94); Mean Platelet Vol. 9.5 fl (6.2-12.0); Monocyte% 6.2 % (0-10); NRBC Flagged by Analyzer 0 % (0-5); Neutrophil # 7.89 X10^3/uL (2.7-7.7); Neutrophil % 82.2 % (47-70); POSITIVE MORPHOLOGY YES; Platelet Count 245 K/mm3 (150-450); RBC Distribution Width CV 12.8 % (11.6-14.6); Red Blood Count 4.46 M/mm3 (4.6-6.2); White Blood Count 9.6 K/mm3 (4.4-11.0)
[2020-06-08 04:57] LABS: Differential Indicated SCAN CRITERIA MET
[2020-06-08 05:11] LABS: ALB/GLOB Ratio 0.7 RATIO (0.9-2.4); AST(SGOT) 38 U/L (15-37); Alanine Aminotransfer ALT/SGPT 31 U/L (16-61); Albumin, Serum 2.8 g/dL (3.2-5.0); Alkaline Phosphatase 74 U/L (45-117); Anion Gap 4 (5-15); BUN 21 mg/dL (7-18); Calcium,Total 8.5 mg/dL (8.5-10.1); Chloride 107 mmol/L (98-107); Creatinine, Serum 1.05 mg/dL (0.70-1.30); EST Glomerular Filtration Rate 78 mL/min (>60); Est Glom Filt Rate - Afr Amer 94 mL/min (>60); Estimated Creatinine Clearance 80.43 ml/min; Globulin 3.8 g/dL (2.2-4.2); Glucose 144 mg/dL (74-106); Potassium 3.9 mmol/L (3.5-5.1); Protein, Total 6.6 g/dL (6.4-8.2); Sodium Level 139 mmol/L (136-145)
[2020-06-08 05:16] LABS: Atypical Lymphocyte 2+ %; Differential Comment SCANNED
--- NOTE | 2020-06-08 06:42 | PCM.PN.PUL ---
Patient Problems: Active and Suspected Problems (Last Reviewed 06/07/20 @ 03:[address] Abdon Fernandez MD) COVID-19 (Acute) Hypoxemia (Acute) SARS (severe acute respiratory syndrome) (Acute) Subjective: Patient did well overnight from a hemodynamic standpoint, but did have a spontaneous epistaxis this morning. This was controlled with local measures, but patient is still requiring supplemental oxygen to maintain saturations. Patient overall feels subjectively slightly improved compared to yesterday. No significant complications of steroids have been noted. - Physical Exam Vitals/I&O's: Vital Signs Temp Pulse Resp BP Pulse Ox 37.1 C 77 16 130/76 H 96 06/08/20 04:00 06/08/20 04:00 06/08/20 04:00 06/08/20 04:00 06/08/20 04:00 Oxygen Flow Rate (L/min) 3 Oxygen Delivery Method Nasal Cannula Weight: 100.9 kg Body Mass Index (BMI) 32.8 Intake and Output for Last 24 Hours 06/06/20 06/07/20 06/08/20 23:59 23:59 23:59 Intake Total 600 / 720 120 / 120 Balance 600 / 720 120 / 120 General: Alert, Oriented x3, Cooperative, No apparent distress, Well developed, Well nourished, - - No conversational dyspnea HEENT: Atraumatic, PERRLA, EOMI, Normocephalic, - - No scleral icterus or injection noted Oral: Moist Mucosa, No Gingival or Mucosal Lesions/ Ulcerations Neck: Supple, No JVD, No Nodes, Trachea Midline Lungs: No rhonchi, No wheeze, No rales, Diminished Cardiovascular: Regular rate, Regular Rhythm, Normal S1, Normal S2, Murmur, No rub noted, No Gallop Abdomen: Bowel Sounds Present, Soft, Non Tender, Non-Distended Extremities: No clubbing, No cyanosis, No edema Skin: No rashes, No breakdown Musculoskeletal: No Tenderness to Palpation of Joints or Extremities Lymphatic: No Cervical, Supraclavicular, or Inguinal Adenopathy Neurological: Cranial nerves II-XII grossly intact, Neuro grossly intact, Motor Exam 5/5 strength throughout Psych/Mental Status: Alert and oriented to time, place, person, mood and affect Microbiology Past 72 Hours 06/06/20 23:35 Mucosa - Nasopharyngeal Respiratory Panel (PCR) - Final Laboratory Results 06/08/20 04:45: WBC 9.6, RBC 4.46 L, Hgb 13.5, Hct 40.9, MCV 91.7, MCH 30.3, MCHC 33.0, RDW Std Deviation 43.0, RDW Coeff of Rebecca 12.8, Plt Count 245, MPV 9.5, Immature Gran % (Auto) 0.500, Neut % (Auto) 82.2 H, Lymph % (Auto) 10.9 L, Sterling % (Auto) 6.2, Eos % (Auto) 0.0, Baso % (Auto) 0.2, Absolute Neuts (auto) 7.9 H, Absolute Lymphs (auto) 1.05, Nucleated RBC % 0, Differential Comment SCANNED, Atypical Lymphocytes 2+ 06/08/20 04:45: Sodium 139, Potassium 3.9, Chloride 107, Carbon Dioxide 28.0, Anion Gap 4 L, BUN 21 H, Creatinine 1.05, Estim Creat Clear Calc 80.43, Est GFR (MDRD) Af Amer 94, Est GFR (MDRD) Non-Af 78, BUN/Creatinine Ratio 20.0, Glucose 144 H, Calcium 8.5, Total Bilirubin 0.40, AST 38 H, ALT 31, Alkaline Phosphatase 74, Total Protein 6.6, Albumin 2.8 L, Globulin 3.8, Albumin/Globulin Ratio 0.7 L Current Medications Acetaminophen (Acetaminophen 325 Mg Tablet) 650 mg PO Q6H PRN PRN PRN Reason: Pain Score 1-10/Temp > 100.7 F Last Admin: 06/06/20 23:57 Dose: 650 mg Documented by: Albuterol Sulfate (Albuterol Ih 8.5 Gm (Proair) Inhaler (200 Puffs)) 2 puff INHALATION Q4H PRN PRN PRN Reason: sob/wheezing Aspirin (Aspirin E.C. 81 Mg Tablet) 81 mg PO DAILY [facility] Last Admin: 06/07/20 08:48 Dose: 81 mg Documented by: Bupropion HCl (Bupropion (Sr) 150 Mg Tablet.Sa) 150 mg PO BID [facility] Last Admin: 06/07/20 21:41 Dose: 150 mg Documented by: Dexamethasone (Dexamethasone 4 Mg Tablet) 6 mg PO DAILY [facility] Last Admin: 06/07/20 08:47 Dose: 6 mg Documented by: Enoxaparin Sodium (Enoxaparin 30 Mg/0.3 Ml Syringe) 30 mg SC BID [facility] Last Admin: 06/07/20 21:41 Dose: 30 mg Documented by: Ergocalciferol (Ergocalciferol 50,000 Unit Capsule) 50,000 unit PO QWEEK [facility] Guaifenesin (Guaifenesin 1,200 Mg Tablet) 1,200 mg PO BID [facility] Last Admin: 06/07/20 21:41 Dose: 1,200 mg Documented by: Remdesivir 100 mg/ Sodium (Chloride) 250 mls @ 125 mls/hr IV Q24H [facility] Stop: 06/10/20 23:59 Last Infusion: 06/07/20 23:41 Dose: Infused Documented by: Sodium Chloride () 250 mls @ 15 mls/hr IV .[id number] PRN PRN Reason: Saline Flush Sodium Chloride () 250 mls @ 15 mls/hr IV .[id number] PRN PRN Reason: Additional IVPB Infusion Loratadine (Loratadine 10 Mg Tablet) 10 mg PO DAILY [facility] Last Admin: 06/07/20 08:48 Dose: 10 mg Documented by: Losartan Potassium (Losartan Potassium 50 Mg Tablet) 50 mg PO DAILY [facility] Last Admin: 06/07/20 08:48 Dose: 50 mg Documented by: Melatonin (Melatonin 3 Mg Tablet) 3 mg PO QHS PRN PRN PRN Reason: INSOMNIA Multivitamins (Multivitamins,Therapeutic Tablet) 1 tablet PO DAILY [facility] Last Admin: 06/07/20 08:48 Dose: 1 tablet Documented by: Naproxen (Naproxen 500 Mg Tablet) 500 mg PO BID [facility] Last Admin: 06/07/20 21:41 Dose: 500 mg Documented by: Nebivolol (Nebivolol Hcl 5 Mg Tablet) 5 mg PO DAILY [facility] Last Admin: 06/07/20 08:47 Dose: 5 mg Documented by: Ondansetron HCl (Ondansetron 4 Mg/2 Ml Vial) 4 mg IV Q8H PRN PRN PRN Reason: NAUSEA/VOMITING Pantoprazole Sodium (Pantoprazole Sodium 20 Mg Tablet) 20 mg PO DAILY [facility] Last Admin: 06/07/20 08:48 Dose: 20 mg Documented by: Senna/Docusate Sodium (Senna/Docusate Sodium 1 Tablet) 2 tablet PO BID PRN PRN PRN Reason: Constipation Sodium Chloride (0.9% Saline Lock 10 Ml Syringe) 10 - 40 ml IV UD PRN PRN Reason: SALINE FLUSH Medical Necessity - Tobacco Use Smoking Status: Former smoker Tobacco Use: Non-smoker Assessment/Plan All Active Problems (Last Reviewed 06/07/20 @ 03:[address] Abdon Fernandez MD) COVID-19 (Acute) Hypoxemia (Acute) SARS (severe acute respiratory syndrome) (Acute) RECOMMENDATIONS: 1. Remdesivir per infectious disease. Okay to continue with Decadron 2. Continue to monitor blood sugars with BMP, may not need sliding scale insulin 3. Encourage incentive spirometer and activity as tolerated. Add nasal saline 4. Walking oximetry prior to discharge. Wean oxygen as tolerated 5. Outpatient complete pulmonary function test IMPRESSIONS: 1. Acute hypoxic respiratory insufficiency secondary to COVID-19 pneumonia Patient with significant infiltrates and groundglass opacities noted on CT of the chest. Mediastinal and hilar lymphadenopathy likely secondary to acute infectious etiology. Patient may benefit from a repeat CT scan in the future to ensure resolution. Patient does have a significant smoking history, so outpatient pulmonary function tests are likely also indicated. Patient should have aggressive pulmonary recruitment measures such as incentive spirometer and activity as tolerated. Wean oxygen as tolerated. Patient will need a walking oximetry prior to discharge. We will add nasal saline. Epistaxis not to the point where patient should be taken off of Lovenox from my perspective. Attempt conservative measures. 2. Suspected chronic bronchitis versus asthma Patient does have a [id number] smoking history. Patient does not appear to have significant emphysematous changes on CT of the chest. However, chronic bronchitis versus asthma would be a consideration. Patient would benefit from an outpatient work-up with pulmonary function test for quantification clarification of lung function. This may account for the need for supplemental oxygen at this time 3. Aortic stenosis/obesity/hypertension Complicates care, management, recovery and prognosis. Patient does not appear to be volume overloaded at this time. Okay to continue with baseline medications from my perspective. May need to discontinue naproxen and ARB if develops renal insufficiency. Inpatient E&M: 35082 Subs Hosp L2
[2020-06-08] MEDS: Enoxaparin 30 MG/0.3 ML Syringe SC ×2 (08:23→21:50)
[2020-06-08] MEDS: dexAMETHasone 4 MG Tablet 6 MG PO (08:24)
[2020-06-08] MEDS: buPROPion (SR) 150 MG Tablet.SA PO ×2 (08:25→21:50)
[2020-06-08] MEDS: Naproxen 500 MG Tablet PO ×2 (08:25→21:50)
[2020-06-08] MEDS: guaiFENesin 1,200 MG Tablet 1200 MG PO ×2 (08:25→21:50)
[2020-06-08] MEDS: Pantoprazole Sodium 20 MG Tablet PO (08:25)
[2020-06-08] MEDS: Aspirin E.C. 81 MG Tablet PO (08:25)
[2020-06-08] MEDS: Losartan Potassium 50 MG Tablet PO (08:25)
[2020-06-08] MEDS: Multivitamins,Therapeutic Tablet 1 TABLET PO (08:25)
[2020-06-08] MEDS: Loratadine 10 MG Tablet PO (08:25)
--- NOTE | 2020-06-08 10:21 | PCM.PROGNOTE ---
Patient Problems: Active and Suspected Problems (Last Reviewed 06/07/20 @ 03:[address] Abdon Fernandez MD) COVID-19 (Acute) Hypoxemia (Acute) SARS (severe acute respiratory syndrome) (Acute) Subjective: Chief complaint: Follow-up after admission for acute bilateral COVID-19 pneumonia and acute hypoxic respiratory insufficiency. Patient seen and examined. No acute events overnight. This morning, he had spontaneous epistaxis, controlled at this time. Patient reported some improvement of her symptoms, feeling little bit better. Still getting short of breath upon ambulation and pulse ox drops. Denies fever chills. He is afebrile, blood pressure and vitals are stable. - Physical Exam Vitals/I&O's: Vital Signs Temp Pulse Resp BP Pulse Ox 98.7 F 77 16 130/76 H 92 06/08/20 04:00 06/08/20 04:00 06/08/20 04:00 06/08/20 04:00 06/08/20 07:13 Oxygen Flow Rate (L/min) 3 Oxygen Delivery Method Nasal Cannula Weight: 222 lb 7.143 oz Body Mass Index (BMI) 32.8 Intake and Output for Last 24 Hours 06/06/20 06/07/20 06/08/20 23:59 23:59 23:59 Intake Total 600 / 720 120 / 120 Balance 600 / 720 120 / 120 General: Alert, Oriented x3, Cooperative, No apparent distress HEENT: Atraumatic, PERRLA, EOMI, Normocephalic Oral: Moist Mucosa, No Gingival or Mucosal Lesions/ Ulcerations Neck: Supple, No JVD, Negative Carotid Bruits, Trachea Midline, Thyroid Normal Size and Texture Lungs: Clear to auscultation, No rhonchi, No wheeze, No rales, Diminished, - - Decreased breath sounds bilateral, otherwise clear. Cardiovascular: Regular rate, Regular Rhythm, Normal S1, Normal S2, PMI Normal Abdomen: Bowel Sounds Present, Soft, Non Tender, Non-Distended, No Hepato-splenomegaly Extremities: No clubbing, No cyanosis, No edema Skin: No rashes, No breakdown Lymphatic: No Cervical, Supraclavicular, or Inguinal Adenopathy Neurological: Cranial nerves II-XII grossly intact, Neuro grossly intact Psych/Mental Status: Normal Affect, Appropriate, Alert and oriented to time, place, person, mood and affect Microbiology Past 72 Hours 06/06/20 23:35 Mucosa - Nasopharyngeal Respiratory Panel (PCR) - Final Laboratory Results 06/08/20 04:45: WBC 9.6, RBC 4.46 L, Hgb 13.5, Hct 40.9, MCV 91.7, MCH 30.3, MCHC 33.0, RDW Std Deviation 43.0, RDW Coeff of Rebecca 12.8, Plt Count 245, MPV 9.5, Immature Gran % (Auto) 0.500, Neut % (Auto) 82.2 H, Lymph % (Auto) 10.9 L, [place] % (Auto) 6.2, Eos % (Auto) 0.0, Baso % (Auto) 0.2, Absolute Neuts (auto) 7.9 H, Absolute Lymphs (auto) 1.05, Nucleated RBC % 0, Differential Comment SCANNED, Atypical Lymphocytes 2+ 06/08/20 04:45: Sodium 139, Potassium 3.9, Chloride 107, Carbon Dioxide 28.0, Anion Gap 4 L, BUN 21 H, Creatinine 1.05, Estim Creat Clear Calc 80.43, Est GFR (MDRD) Af Amer 94, Est GFR (MDRD) Non-Af 78, BUN/Creatinine Ratio 20.0, Glucose 144 H, Calcium 8.5, Total Bilirubin 0.40, AST 38 H, ALT 31, Alkaline Phosphatase 74, Total Protein 6.6, Albumin 2.8 L, Globulin 3.8, Albumin/Globulin Ratio 0.7 L Current Medications Acetaminophen (Acetaminophen 325 Mg Tablet) 650 mg PO Q6H PRN PRN PRN Reason: Pain Score 1-10/Temp > 100.7 F Last Admin: 06/06/20 23:57 Dose: 650 mg Documented by: Albuterol Sulfate (Albuterol Ih 8.5 Gm (Proair) Inhaler (200 Puffs)) 2 puff INHALATION Q4H PRN PRN PRN Reason: sob/wheezing Aspirin (Aspirin E.C. 81 Mg Tablet) 81 mg PO DAILY COUNTS INCLUDE 234 BEDS AT THE [facility] Last Admin: 06/08/20 08:25 Dose: 81 mg Documented by: Bupropion HCl (Bupropion (Sr) 150 Mg Tablet.Sa) 150 mg PO BID COUNTS INCLUDE 234 BEDS AT THE [facility] Last Admin: 06/08/20 08:25 Dose: 150 mg Documented by: Dexamethasone (Dexamethasone 4 Mg Tablet) 6 mg PO DAILY COUNTS INCLUDE 234 BEDS AT THE [facility] Last Admin: 06/08/20 08:24 Dose: 6 mg Documented by: Enoxaparin Sodium (Enoxaparin 30 Mg/0.3 Ml Syringe) 30 mg SC BID COUNTS INCLUDE 234 BEDS AT THE [facility] Last Admin: 06/08/20 08:23 Dose: 30 mg Documented by: Ergocalciferol (Ergocalciferol 50,000 Unit Capsule) 50,000 unit PO QWEEK COUNTS INCLUDE 234 BEDS AT THE [facility] Guaifenesin (Guaifenesin 1,200 Mg Tablet) 1,200 mg PO BID COUNTS INCLUDE 234 BEDS AT THE [facility] Last Admin: 06/08/20 08:25 Dose: 1,200 mg Documented by: Remdesivir 100 mg/ Sodium (Chloride) 250 mls @ 125 mls/hr IV Q24H COUNTS INCLUDE 234 BEDS AT THE [facility] Stop: 06/10/20 23:59 Last Infusion: 06/07/20 23:41 Dose: Infused Documented by: Sodium Chloride () 250 mls @ 15 mls/hr IV .[id number] PRN PRN Reason: Saline Flush Sodium Chloride () 250 mls @ 15 mls/hr IV .[id number] PRN PRN Reason: Additional IVPB Infusion Loratadine (Loratadine 10 Mg Tablet) 10 mg PO DAILY COUNTS INCLUDE 234 BEDS AT THE [facility] Last Admin: 06/08/20 08:25 Dose: 10 mg Documented by: Losartan Potassium (Losartan Potassium 50 Mg Tablet) 50 mg PO DAILY COUNTS INCLUDE 234 BEDS AT THE [facility] Last Admin: 06/08/20 08:25 Dose: 50 mg Documented by: Melatonin (Melatonin 3 Mg Tablet) 3 mg PO QHS PRN PRN PRN Reason: INSOMNIA Multivitamins (Multivitamins,Therapeutic Tablet) 1 tablet PO DAILY COUNTS INCLUDE 234 BEDS AT THE [facility] Last Admin: 06/08/20 08:25 Dose: 1 tablet Documented by: Naproxen (Naproxen 500 Mg Tablet) 500 mg PO BID COUNTS INCLUDE 234 BEDS AT THE [facility] Last Admin: 06/08/20 08:25 Dose: 500 mg Documented by: Nebivolol (Nebivolol Hcl 5 Mg Tablet) 5 mg PO DAILY COUNTS INCLUDE 234 BEDS AT THE [facility] Last Admin: 06/08/20 08:25 Dose: 5 mg Documented by: Ondansetron HCl (Ondansetron 4 Mg/2 Ml Vial) 4 mg IV Q8H PRN PRN PRN Reason: NAUSEA/VOMITING Pantoprazole Sodium (Pantoprazole Sodium 20 Mg Tablet) 20 mg PO DAILY COUNTS INCLUDE 234 BEDS AT THE [facility] Last Admin: 06/08/20 08:25 Dose: 20 mg Documented by: Senna/Docusate Sodium (Senna/Docusate Sodium 1 Tablet) 2 tablet PO BID PRN PRN PRN Reason: Constipation Sodium Chloride (0.9% Saline Lock 10 Ml Syringe) 10 - 40 ml IV UD PRN PRN Reason: SALINE FLUSH Sodium Chloride (Sodium Chloride 0.65% 1 [place] Wall[place]rass.Btl) 2 spray NASAL TID PRN PRN PRN Reason: NASAL DRYNESS Medical Necessity - Tobacco Use Smoking Status: Former smoker Tobacco Use: Non-smoker Assessment/Plan All Active Problems (Last Reviewed 06/07/20 @ 03:[address] Abdon Fernandez MD) COVID-19 (Acute) Hypoxemia (Acute) SARS (severe acute respiratory syndrome) (Acute) This is a 54 years old male patient presented to the emergency room because of progressively increasing shortness of breath with onset of symptoms around 15 days ago, tested positive for COVID-19 11 days ago, found to have extensive bilateral focal infiltrate on chest x-ray and CTA chest consistent with acute bilateral COVID-19 pneumonia which complicated by hypoxemia. #1 acute bilateral COVID-19 pneumonia: He is on p.o. dexamethasone, IV remdesivir and subcu Lovenox twice daily. Subjectively, he reports some improvement, still requiring some oxygen and getting short of breath upon ambulation. Overall, is feeling better. He has been afebrile. No PE on CTA chest. Infectious disease and pulmonology are on the case. Plan to continue same treatment, repeat CBC and CMP tomorrow morning. #2 acute hypoxic respiratory sufficiency: Secondary to #1. This morning, he is off oxygen because of epistaxis but pulse ox drops upon ambulation. Plan to monitor, put oxygen back when patient can tolerate, wean off oxygen as tolerated. #3 epistaxis: Likely due to dry nose secondary to oxygen and being on Lovenox twice daily. Currently, epistaxis is stopped by local measures. Plan to monitor. #4 hypertension: Blood pressure stable, continue losartan and Bystolic. #5 GERD: Stable, continue Protonix. #6 depression: Stable, continue Wellbutrin. #7 DVT prophylaxis: Subcu Lovenox twice daily. This note was generated with [employer] dictation software. It may contain incorrect words, spelling, and punctuation that were not noted in checking the note before signing. Inpatient E&M: 35822 Subs Hosp L2
[2020-06-09 03:00] VITALS: BP 127/82; PULSE 79; RESP 18; TEMP 37.1; O2SAT 96
[2020-06-09 04:00] VITALS: PULSE 75
[2020-06-09 05:25] LABS: Absolute Lymphocyte Count 1.21 X10^3/uL (0.83-4.51); Absolute Neutrophil Count 9.9 X10^3/uL (2.0-7.7); Basophil# 0.03 X10^3/uL; Basophil% 0.3 % (0-1); Lymphocyte # 1.21 X10^3/ul (4.0); Lymphocyte % 10.1 % (19-41); Mean Corp Hgb Conc 32.5 g/dL (32-36); Mean Corpuscular Hgb 30.3 pg (27.0-32.0); Mean Corpuscular Volume 93.2 fL (80-94); Mean Platelet Vol. 9.5 fl (6.2-12.0); Monocyte# 0.73 X10^3/uL; Monocyte% 6.1 % (0-10); NRBC Flagged by Analyzer 0 % (0-5); Neutrophil # 9.85 X10^3/uL (2.7-7.7); Neutrophil % 82.6 % (47-70); POSITIVE MORPHOLOGY YES; Platelet Count 267 K/mm3 (150-450); RBC Distribution Width SD 44.5 fl (35.1-43.9); Red Blood Count 4.29 M/mm3 (4.6-6.2); White Blood Count 11.9 K/mm3 (4.4-11.0)
[2020-06-09 05:36] LABS: ALB/GLOB Ratio 0.8 RATIO (0.9-2.4); AST(SGOT) 42 U/L (15-37); Alanine Aminotransfer ALT/SGPT 42 U/L (16-61); Albumin, Serum 2.8 g/dL (3.2-5.0); Alkaline Phosphatase 69 U/L (45-117); Anion Gap 6 (5-15); BUN 24 mg/dL (7-18); BUN/Creat Ratio 25.7 RATIO (10-20); Calcium,Total 8.3 mg/dL (8.5-10.1); Chloride 109 mmol/L (98-107); Creatinine, Serum 0.93 mg/dL (0.70-1.30); EST Glomerular Filtration Rate 89 mL/min (>60); Est Glom Filt Rate - Afr Amer 108 mL/min (>60); Globulin 3.4 g/dL (2.2-4.2); Glucose 125 mg/dL (74-106); Potassium 4.1 mmol/L (3.5-5.1); Protein, Total 6.2 g/dL (6.4-8.2); Sodium Level 141 mmol/L (136-145)
[2020-06-09 05:49] LABS: Differential Indicated SCAN CRITERIA MET
[2020-06-09 05:55] LABS: Atypical Lymphocyte 2+ %
[2020-06-09 05:56] LABS: Differential Comment SCANNED
[2020-06-09 07:00] VITALS: PULSE 81
--- NOTE | 2020-06-09 07:30 | PCM.PN.PUL ---
Patient Problems: Active and Suspected Problems (Last Reviewed 06/07/20 @ 03:[address] Abdon Fernandez MD) COVID-19 (Acute) Hypoxemia (Acute) SARS (severe acute respiratory syndrome) (Acute) Subjective: Patient did well overnight. No acute issues were reported. Patient feels subjectively improved compared to previous. Patient is still having dyspnea with walking to the bathroom, but no further epistaxis has been reported. - Physical Exam Vitals/I&O's: Vital Signs Temp Pulse Resp BP Pulse Ox 37.1 C 75 18 127/82 H 96 06/09/20 03:00 06/09/20 04:00 06/09/20 03:00 06/09/20 03:00 06/09/20 03:00 Oxygen Flow Rate (L/min) 2 Oxygen Delivery Method Nasal Cannula Weight: 100.9 kg Body Mass Index (BMI) 32.8 Intake and Output for Last 24 Hours 06/07/20 06/08/20 06/09/20 23:59 23:59 23:59 Intake Total 600 / 720 370 / 490 240 / 240 Balance 600 / 720 370 / 490 240 / 240 General: Alert, Oriented x3, Cooperative, No apparent distress, Well developed, Well nourished, - - No conversational dyspnea. HEENT: Atraumatic, PERRLA, EOMI, - - No scleral icterus or injection noted Oral: Moist Mucosa, No Gingival or Mucosal Lesions/ Ulcerations Neck: Supple, No JVD, No Nodes, Trachea Midline Lungs: No rhonchi, No wheeze, No rales, Diminished Cardiovascular: Regular rate, Regular Rhythm, Normal S1, Normal S2, No murmurs, No rub noted, No Gallop Abdomen: Bowel Sounds Present, Soft, Non Tender, Non-Distended Extremities: No clubbing, No cyanosis, No edema, Capillary Refill Less than 3 Seconds Skin: No rashes, No breakdown Musculoskeletal: No Tenderness to Palpation of Joints or Extremities Lymphatic: No Cervical, Supraclavicular, or Inguinal Adenopathy Neurological: Cranial nerves II-XII grossly intact, Neuro grossly intact, Motor Exam 5/5 strength throughout Psych/Mental Status: Alert and oriented to time, place, person, mood and affect Microbiology Past 72 Hours 06/06/20 23:35 Mucosa - Nasopharyngeal Respiratory Panel (PCR) - Final Laboratory Results 06/09/20 05:10: WBC 11.9 H, RBC 4.29 L, Hgb 13.0, Hct 40.0, MCV 93.2, MCH 30.3, MCHC 32.5, RDW Std Deviation 44.5 H, RDW Coeff of Rebecca 13.0, Plt Count 267, MPV 9.5, Immature Gran % (Auto) 0.900, Neut % (Auto) 82.6 H, Lymph % (Auto) 10.1 L, [place] % (Auto) 6.1, Eos % (Auto) 0.0, Baso % (Auto) 0.3, Absolute Neuts (auto) 9.9 H, Absolute Lymphs (auto) 1.21, Nucleated RBC % 0, Differential Comment SCANNED, Atypical Lymphocytes 2+ 06/09/20 05:10: Sodium 141, Potassium 4.1, Chloride 109 H, Carbon Dioxide 26.0, Anion Gap 6, BUN 24 H, Creatinine 0.93, Estim Creat Clear Calc 90.80, Est GFR (MDRD) Af Amer 108, Est GFR (MDRD) Non-Af 89, BUN/Creatinine Ratio 25.7 H, Glucose 125 H, Calcium 8.3 L, Total Bilirubin 0.40, AST 42 H, ALT 42, Alkaline Phosphatase 69, Total Protein 6.2 L, Albumin 2.8 L, Globulin 3.4, Albumin/Globulin Ratio 0.8 L Current Medications Acetaminophen (Acetaminophen 325 Mg Tablet) 650 mg PO Q6H PRN PRN PRN Reason: Pain Score 1-10/Temp > 100.7 F Last Admin: 06/06/20 23:57 Dose: 650 mg Documented by: Albuterol Sulfate (Albuterol Ih 8.5 Gm (Proair) Inhaler (200 Puffs)) 2 puff INHALATION Q4H PRN PRN PRN Reason: sob/wheezing Aspirin (Aspirin E.C. 81 Mg Tablet) 81 mg PO DAILY [facility] Last Admin: 06/08/20 08:25 Dose: 81 mg Documented by: Bupropion HCl (Bupropion (Sr) 150 Mg Tablet.Sa) 150 mg PO BID [facility] Last Admin: 06/08/20 21:50 Dose: 150 mg Documented by: Dexamethasone (Dexamethasone 4 Mg Tablet) 6 mg PO DAILY [facility] Last Admin: 06/08/20 08:24 Dose: 6 mg Documented by: Enoxaparin Sodium (Enoxaparin 30 Mg/0.3 Ml Syringe) 30 mg SC BID [facility] Last Admin: 06/08/20 21:50 Dose: 30 mg Documented by: Ergocalciferol (Ergocalciferol 50,000 Unit Capsule) 50,000 unit PO QWEEK [facility] Guaifenesin (Guaifenesin 1,200 Mg Tablet) 1,200 mg PO BID [facility] Last Admin: 06/08/20 21:50 Dose: 1,200 mg Documented by: Remdesivir 100 mg/ Sodium (Chloride) 250 mls @ 125 mls/hr IV Q24H [facility] Stop: 06/10/20 23:59 Last Infusion: 06/08/20 23:50 Dose: Infused Documented by: Sodium Chloride () 250 mls @ 15 mls/hr IV .[id number] PRN PRN Reason: Saline Flush Sodium Chloride () 250 mls @ 15 mls/hr IV .[id number] PRN PRN Reason: Additional IVPB Infusion Sodium Chloride () 250 mls @ 15 mls/hr IV .[id number] PRN PRN Reason: Saline Flush Sodium Chloride () 250 mls @ 15 mls/hr IV .[id number] PRN PRN Reason: Additional IVPB Infusion Loratadine (Loratadine 10 Mg Tablet) 10 mg PO DAILY [facility] Last Admin: 06/08/20 08:25 Dose: 10 mg Documented by: Losartan Potassium (Losartan Potassium 50 Mg Tablet) 50 mg PO DAILY [facility] Last Admin: 06/08/20 08:25 Dose: 50 mg Documented by: Melatonin (Melatonin 3 Mg Tablet) 3 mg PO QHS PRN PRN PRN Reason: INSOMNIA Multivitamins (Multivitamins,Therapeutic Tablet) 1 tablet PO DAILY [facility] Last Admin: 06/08/20 08:25 Dose: 1 tablet Documented by: Naproxen (Naproxen 500 Mg Tablet) 500 mg PO BID [facility] Last Admin: 06/08/20 21:50 Dose: 500 mg Documented by: Nebivolol (Nebivolol Hcl 5 Mg Tablet) 5 mg PO DAILY [facility] Last Admin: 06/08/20 08:25 Dose: 5 mg Documented by: Ondansetron HCl (Ondansetron 4 Mg/2 Ml Vial) 4 mg IV Q8H PRN PRN PRN Reason: NAUSEA/VOMITING Pantoprazole Sodium (Pantoprazole Sodium 20 Mg Tablet) 20 mg PO DAILY [facility] Last Admin: 06/08/20 08:25 Dose: 20 mg Documented by: Senna/Docusate Sodium (Senna/Docusate Sodium 1 Tablet) 2 tablet PO BID PRN PRN PRN Reason: Constipation Sodium Chloride (0.9% Saline Lock 10 Ml Syringe) 10 - 40 ml IV UD PRN PRN Reason: SALINE FLUSH Sodium Chloride (Sodium Chloride 0.65% 1 [place].Btl) 2 spray NASAL TID PRN PRN PRN Reason: NASAL DRYNESS Sodium Chloride (0.9% Saline Lock 10 Ml Syringe) 10 - 40 ml IV UD PRN PRN Reason: SALINE FLUSH Medical Necessity - Tobacco Use Smoking Status: Former smoker Tobacco Use: Non-smoker Assessment/Plan All Active Problems (Last Reviewed 06/07/20 @ 03:[address] Abdon Fernandez MD) COVID-19 (Acute) Hypoxemia (Acute) SARS (severe acute respiratory syndrome) (Acute) RECOMMENDATIONS: 1. Remdesivir per infectious disease. Okay to continue with Decadron to complete a 10-day course 2. Continue to monitor blood sugars with BMP, may not need sliding scale insulin 3. Encourage incentive spirometer and activity as tolerated. Continue nasal saline 4. Walking oximetry prior to discharge. Wean oxygen as tolerated. Okay to discharge from pulmonary perspective 5. Outpatient complete pulmonary function test IMPRESSIONS: 1. Acute hypoxic respiratory insufficiency secondary to COVID-19 pneumonia Patient with significant infiltrates and groundglass opacities noted on CT of the chest. Mediastinal and hilar lymphadenopathy likely secondary to acute infectious etiology. Patient may benefit from a repeat CT scan in the future to ensure resolution. Patient appears to be doing well from a respiratory standpoint. Do believe patient will require supplemental oxygen on discharge, but status has stabilized. Okay to discharge from a pulmonary perspective. Patient should follow-up with nurse practitioner in 4 weeks in our office to assess with supplemental oxygen 2. Suspected chronic bronchitis versus asthma Patient does have a [id number] smoking history. Patient does not appear to have significant emphysematous changes on CT of the chest. However, chronic bronchitis versus asthma would be a consideration. Patient would benefit from an outpatient work-up with pulmonary function test for quantification clarification of lung function. This may account for the need for supplemental oxygen at this time 3. Aortic stenosis/obesity/hypertension Complicates care, management, recovery and prognosis. Patient does not appear to be volume overloaded at this time. Okay to continue with baseline medications from my perspective. May need to discontinue naproxen and ARB if develops renal insufficiency. Inpatient E&M: 87875 Subs Hosp L2
[2020-06-09 08:45] VITALS: O2SAT 93; O2SAT 95
[2020-06-09 08:55] VITALS: BP 108/69; PULSE 79; RESP 19; TEMP 36; O2SAT 94
[2020-06-09] MEDS: Losartan Potassium 50 MG Tablet PO (08:57)
[2020-06-09] MEDS: Loratadine 10 MG Tablet PO (08:57)
[2020-06-09] MEDS: guaiFENesin 1,200 MG Tablet 1200 MG PO (08:58)
[2020-06-09] MEDS: dexAMETHasone 4 MG Tablet 6 MG PO (08:58)
[2020-06-09] MEDS: Aspirin E.C. 81 MG Tablet PO (08:58)
[2020-06-09] MEDS: Multivitamins,Therapeutic Tablet 1 TABLET PO (08:58)
[2020-06-09] MEDS: Enoxaparin 30 MG/0.3 ML Syringe SC (08:58)
[2020-06-09] MEDS: Naproxen 500 MG Tablet PO (08:59)
[2020-06-09] MEDS: buPROPion (SR) 150 MG Tablet.SA PO (08:59)
[2020-06-09] MEDS: Pantoprazole Sodium 20 MG Tablet PO (08:59)
--- NOTE | 2020-06-09 09:31 | PCM.DC ---
- Discharge Diagnoses Current Active Problems: Current Active and Chronic Problems (Last Reviewed 06/07/20 @ 03:[address] Abdon Fernandez MD) COVID-19 (Acute) Hypoxemia (Acute) SARS (severe acute respiratory syndrome) (Acute) History of vasectomy (Chronic) History of cholecystectomy (Chronic ~2007) History of colonoscopy (Chronic ~2015) History of esophagogastroduodenoscopy (EGD) (Chronic) 10/12/18 History of carpal tunnel release (Chronic) History of fusion of cervical spine (Chronic) Back pain (Chronic) Anxiety (Chronic) Cardiac murmur (Chronic) Esophageal stricture (Chronic) GERD (gastroesophageal reflux disease) (Chronic) You will use the following diet at home:: Cardiac Your food should be the consistency of: Regular Discharge Activity: Return to Normal Activity Weight Bearing Status: Full weight bearing Call your doctor if you observe: Fever of 101 or Higher, Shortness of breath, Dizziness, Fainting spells, Chest pain, Increased palpitations (irregular heartbeat), Uncontrolled pain Additional Instructions: Continue COVID-19 quarantine requirement until June 13, 2020, use facemask at all times, wash hands frequently. Allergies/Adverse Reactions: Allergies Penicillins Allergy (Verified 06/02/20 21:31) Unknown Medications to take at Discharge Cetirizine HCl [Zyrtec] 10 mg PO DAILY 02/06/15 Multivitamins,Therapeutic [Multivitamin] 1 tab PO DAILY 02/06/15 buPROPion SR [Wellbutrin SR (150mg tablets)] 150 mg PO BID 02/06/15 Aspirin [Aspir-Low] 81 mg PO DAILY 05/17/16 Cholecalciferol (Vitamin D3) [Vitamin D3] 50,000 unit PO QWEEK 05/17/16 Nebivolol HCl [Bystolic (Beta [place])] 5 mg PO DAILY 05/17/16 Tadalafil [Cialis] 10 mg PO DAILY 05/17/16 Albuterol Inhaler [Ventolin Hfa] 1 - 2 puff INHALATION Q6H PRN PRN 10/25/16 Irbesartan [Avapro] 150 mg PO DAILY 06/02/20 Naproxen [Naprosyn] 500 mg PO BID #14 tab 06/02/20 Omeprazole [Prilosec] 20 mg PO DAILY 06/02/20 Ondansetron [Zofran Odt] 4 mg PO Q8H PRN PRN #10 tab 06/02/20 Dexamethasone [Decadron] 6 mg PO DAILY 7 Days #7 tab 06/09/20 The following prescriptions were given: Dexamethasone [Decadron] 6 mg PO DAILY 7 Days #7 tab Transmission Status: Pending to [facility] Please follow up with your Primary Care Physician in: 1 week. Test Results: Test results from this visit will be discussed in further detail at your follow-up appointment, if applicable.
[2020-06-09 09:33] VITALS: BP 108/69; PULSE 79; RESP 19; TEMP 36; O2SAT 94
--- NOTE | 2020-06-09 11:44 | PCM.DC.SUM ---
Discharge Date and Diagnosis - Problem List Patient Problems: Active and Suspected Problems (Last Reviewed 06/07/20 @ 03:[address] Abdon Fernandez MD) COVID-19 (Acute) Hypoxemia (Acute) SARS (severe acute respiratory syndrome) (Acute) Date of Admission: 06/06/20 Date of Discharge: 06/09/20 - Primary Discharge Diagnosis Acute Problems: Active Problems (Last Reviewed 06/07/20 @ 03:[address] Abdon Fernandez MD) #1 acute bilateral COVID-19 pneumonia. #2 acute hypoxic respiratory insufficiency, resolved. #3 epistaxis, resolved. - Secondary Discharge Diagnosis Chronic Problems: Chronic Problems (Last Reviewed 06/07/20 @ 03:[address] Abdon Fernandez MD) History of vasectomy (Chronic) History of cholecystectomy (Chronic ~2007) History of colonoscopy (Chronic ~2015) History of esophagogastroduodenoscopy (EGD) (Chronic) 10/12/18 History of carpal tunnel release (Chronic) History of fusion of cervical spine (Chronic) Back pain (Chronic) Anxiety (Chronic) Cardiac murmur (Chronic) Esophageal stricture (Chronic) GERD (gastroesophageal reflux disease) (Chronic) Hospital Course and Treatment Imaging Results: Clinical Impression(s) from Imaging Studies Chest X-Ray 06/06/20 20:10 IMPRESSION: Severe multifocal bilateral airspace opacities consistent with Covid pneumonia as clinically indicated. Electronically Signed: Neftaly Woods MD at 21:02 EST Tel , Service support , Chest CTA 06/06/20 20:31 IMPRESSION: No demonstrated pulmonary embolism or arterial dissection. Severe multifocal groundglass pulmonary opacities most consistent with Covid pneumonia. Mediastinal and hilar lymphadenopathy is nonspecific and may be reactive to infectious process. Electronically Signed: Neftaly Woods MD at 21:31 EST Tel , Service support , Dr. Valenzuela, infectious disease. Dr. Drake, pulmonology. Operations: None Procedures: None Summary of Care Provided: Patient seen and examined on the day of discharge and appeared to be stable to be discharged home. He has been off oxygen and on walking, pulse ox remained at 93%. He is feeling better. His vital signs are stable. The patient is a 54 year old M presented to the emergency room because of progressively increasing shortness of breath with onset of symptoms around 14 days before admission, tested positive for COVID-19 11 days before admission and he was found to have extensive bilateral focal infiltrate on chest x-ray and CTA chest consistent with acute bilateral COVID-19 pneumonia which was complicated by hypoxia. Patient was admitted to [facility] COVID-19 floor, started on p.o. dexamethasone, IV remdesivir and subcu Lovenox twice daily. Initially, required up to 2 L of oxygen. With above-mentioned treatment, patient symptoms improved and he was able to come off oxygen gradually. He developed epistaxis which was attributed to dry nose because of the oxygen and also because patient was on Lovenox twice daily. It was treated with local measures and it resolved. Ambulatory pulse oximeter performed on the day of discharge and pulse ox remained around 92% on room air with ambulation. Patient did not qualify for home oxygen. Patient discharged home in a stable medical condition, discharged on Decadron 6 mg p.o. daily for 7 more days of treatment to complete total of 10 days of treatment, instructed for COVID-19 quarantine requirement until June 13, 2020, wear facemask at all times, wash hands frequently, recommended trouble PCP in 1 week. Patient Problems: Active and Suspected Problems (Last Reviewed 06/07/20 @ 03:[address] Abdon Fernandez MD) COVID-19 (Acute) Hypoxemia (Acute) SARS (severe acute respiratory syndrome) (Acute) - Physical Exam Vitals/I&O's: Vital Signs Temp Pulse Resp BP Pulse Ox 96.8 F L 79 19 H 108/69 94 06/09/20 09:33 06/09/20 09:33 06/09/20 09:33 06/09/20 09:33 06/09/20 09:33 Oxygen Flow Rate (L/min) 2 Oxygen Delivery Method Room Air Weight: 222 lb 7.143 oz Body Mass Index (BMI) 32.8 Intake and Output for Last 24 Hours 06/07/20 06/08/20 06/09/20 23:59 23:59 23:59 Intake Total 600 / 720 370 / 490 240 / 240 Balance 600 / 720 370 / 490 240 / 240 General: Alert, Oriented x3, Cooperative, No apparent distress HEENT: Atraumatic, PERRLA, EOMI, Normocephalic Oral: Moist Mucosa, No Gingival or Mucosal Lesions/ Ulcerations Neck: Supple, No JVD, Negative Carotid Bruits, Trachea Midline, Thyroid Normal Size and Texture Lungs: Clear to auscultation, No rhonchi, No wheeze, No rales, Diminished Cardiovascular: Regular rate, Regular Rhythm, Normal S1, Normal S2, PMI Normal Abdomen: Bowel Sounds Present, Soft, Non Tender, Non-Distended, No Hepato-splenomegaly Extremities: No clubbing, No cyanosis, No edema Skin: No rashes, No breakdown Lymphatic: No Cervical, Supraclavicular, or Inguinal Adenopathy Neurological: Cranial nerves II-XII grossly intact, Neuro grossly intact Psych/Mental Status: Normal Affect, Appropriate Microbiology Past 72 Hours 06/06/20 23:35 Mucosa - Nasopharyngeal Respiratory Panel (PCR) - Final Laboratory Results 06/09/20 05:10: WBC 11.9 H, RBC 4.29 L, Hgb 13.0, Hct 40.0, MCV 93.2, MCH 30.3, MCHC 32.5, RDW Std Deviation 44.5 H, RDW Coeff of Rebecca 13.0, Plt Count 267, MPV 9.5, Immature Gran % (Auto) 0.900, Neut % (Auto) 82.6 H, Lymph % (Auto) 10.1 L, [place] % (Auto) 6.1, Eos % (Auto) 0.0, Baso % (Auto) 0.3, Absolute Neuts (auto) 9.9 H, Absolute Lymphs (auto) 1.21, Nucleated RBC % 0, Differential Comment SCANNED, Atypical Lymphocytes 2+ 06/09/20 05:10: Sodium 141, Potassium 4.1, Chloride 109 H, Carbon Dioxide 26.0, Anion Gap 6, BUN 24 H, Creatinine 0.93, Estim Creat Clear Calc 90.80, Est GFR (MDRD) Af Amer 108, Est GFR (MDRD) Non-Af 89, BUN/Creatinine Ratio 25.7 H, Glucose 125 H, Calcium 8.3 L, Total Bilirubin 0.40, AST 42 H, ALT 42, Alkaline Phosphatase 69, Total Protein 6.2 L, Albumin 2.8 L, Globulin 3.4, Albumin/Globulin Ratio 0.8 L Discharge Activity: Return to Normal Activity Weight Bearing Status: Full weight bearing Call your doctor if you observe: Fever of 101 or Higher, Shortness of breath, Dizziness, Fainting spells, Chest pain, Increased palpitations (irregular heartbeat), Uncontrolled pain Home Medications: Medications to take at Discharge Cetirizine HCl [Zyrtec] 10 mg PO DAILY 02/06/15 Multivitamins,Therapeutic [Multivitamin] 1 tab PO DAILY 02/06/15 buPROPion SR [Wellbutrin SR (150mg tablets)] 150 mg PO BID 02/06/15 Aspirin [Aspir-Low] 81 mg PO DAILY 05/17/16 Cholecalciferol (Vitamin D3) [Vitamin D3] 50,000 unit PO QWEEK 05/17/16 Nebivolol HCl [Bystolic (Beta [place])] 5 mg PO DAILY 05/17/16 Tadalafil [Cialis] 10 mg PO DAILY 05/17/16 Albuterol Inhaler [Ventolin Hfa] 1 - 2 puff INHALATION Q6H PRN PRN 10/25/16 Irbesartan [Avapro] 150 mg PO DAILY 06/02/20 Naproxen [Naprosyn] 500 mg PO BID #14 tab 06/02/20 Omeprazole [Prilosec] 20 mg PO DAILY 06/02/20 Ondansetron [Zofran Odt] 4 mg PO Q8H PRN PRN #10 tab 06/02/20 Dexamethasone [Decadron] 6 mg PO DAILY 7 Days #7 tab 06/09/20 Following Prescriptions Were Given to Patient: Dexamethasone [Decadron] 6 mg PO DAILY 7 Days #7 tab Transmission Status: Received by [facility] Primary Care Physician: Robbin Vanegas MD [Primary Care Provider] - Please follow up with your Primary Care Physician in: 1 week. Disposition: Home Minutes spent on discharge:: 27 Patient Condition:: Stable Medical Necessity - Tobacco Use Smoking Status: Former smoker Tobacco Use: Non-smoker Meaningful Use Info Meaningful Use Diagnoses (Choose all that apply): None applicable Inpatient E&M: [id number] [facility]
--- NOTE | 2020-06-12 14:22 | CASEMGMT ---
SUKUMAR RODRIGUEZ Discharge Follow-Up Phone Call. Heather: 12 Strata: 3 Discharge Date:06/09/20 Adm Dx: COVID Call to pt to inquire about how he has been doing since being discharged from the hospital. Pt states he is doing okay. He states he is feeling better and his breathing is getting a little better every day. He states his is also improving each day. He states he did get the steroid prior to be discharged from the hospital. He denies having any questions about the discharge instructions or medications. He scheduled an appt with his PCP for this Wed. He denies needs or questions/concerns. Cristy BE RN CM
== END 2020-06-09 10:30 | disposition home or self-care (01) | DRG 177 ==
LOC: ED 21:51 → ICU 22:29
PROVIDERS: Admitting Provider Hospitalist; Emergency Provider Emergency Medicine; PCP Family Medicine; Visit Provider Hospitalist
DX: U07.1 COVID-19 (principal); J12.82 Pneumonia due to coronavirus disease 2019; J45.990 Exercise induced bronchospasm; R09.02 Hypoxemia; R04.0 Epistaxis; I35.0 Nonrheumatic aortic (valve) stenosis; I10 Essential (primary) hypertension; K22.2 Esophageal obstruction; K21.9 Gastro-esophageal reflux disease without esophagitis; F32.9 Major depressive disorder, single episode, unspecified; F41.9 Anxiety disorder, unspecified; E66.9 Obesity, unspecified; Z68.32 Body mass index [BMI] 32.0-32.9, adult; Z79.82 Long term (current) use of aspirin; Z79.899 Other long term (current) drug therapy; Z87.891 Personal history of nicotine dependence
CPT/HCPCS: 71045; 71275; 80053; 82550; 83605; 84145; 84484; 85025; 85379; 85384; 87633; 93005; 99285; J7050; Q9967; A4216

== ENCOUNTER → 2020-08-03 12:50 | Outpatient (CLI) | payer BC, SELFPAY ==
[2020-06-06 23:29] VITALS: BMI 32.8
--- NOTE | 2020-08-03 12:52 | ECHOD_ITS ---
Reason For Study: MURMUR Procedure This was a 2D Doppler, Color Flow transthoracic echocardiogram. The study was technically difficult. Exam performed in department. Left Ventricle Normal LV size. Left ventricular systolic function is normal. The estimated ejection fraction is 65 %. Transmitral doppler flow suggestive of impaired relaxation of left ventricle. No regional wall motion abnormalities noted. Right Ventricle Normal RV size. Normal systolic function. Atria Normal left atrium. Normal right atrium. No doppler evidence for ASD. Mitral Valve There is no mitral annular calcification. Normal mitral valve. Trivial mitral valve insufficiency. Tricuspid Valve Normal tricuspid valve. Trivial tricuspid valve insufficiency. Unable to estimate RV systolic pressure/pulmonary artery pressure due to technically difficult study. Aortic Valve Trisinus/trileaflet aortic valve. Moderate diffuse aortic valve calcification. Severe aortic stenosis. Pulmonic Valve The pulmonic valve is not well visualized. Trivial pulmonic valve insufficiency. Great Vessels Normal sized aortic root. Pericardium/Pleural No pericardial effusion. MMode/2D Measurements & Calculations LVIDd: 4.3 cm IVSd: 1.0 cm LVOT diam: 2.0 cm LVIDs: 3.0 cm LVPWd: 1.0 cm LVOT area: 3.2 cm2 RVDd: 3.2 cm FS: 30.7 % Ao root diam: 3.2 cm LAV(MOD-sp2): 29.8 ml LVAd ap4: 30.1 cm2 EDV(MOD-sp4): 95.9 ml EDV(sp4-el): 101.6 ml LVAs ap4: 16.8 cm2 ESV(MOD-sp4): 36.9 ml ESV(sp4-el): 37.1 ml EF(MOD-sp4): 61.5 % EF(sp4-el): 63.4 % SV(MOD-sp4): 59.0 ml SV(sp4-el): 64.5 ml LA dimension(2D): 3.5 cm Time Measurements MV dec time: 0.25 sec Doppler Measurements & Calculations MV E max karan: 54.8 cm/sec Lat Peak E' Karan: 7.9 cm/sec Med Peak E' Karan: 6.5 cm/sec MV A max karan: 81.2 cm/sec E/E' lat: 6.9 E/E' med: 8.4 MV E/A: 0.68 Ao V2 max: 369.0 cm/sec LV V1 max: 81.9 cm/sec SV(LVOT): 54.1 ml Ao max P.5 mmHg LV V1 max P.7 mmHg Ao V2 mean: 276.6 cm/sec LV V1 mean P.4 mmHg Ao mean P.0 mmHg LV V1 mean: 54.0 cm/sec Ao V2 VTI: 78.4 cm LV V1 VTI: 17.0 cm DIAN(I,D): 0.69 cm2 DIAN(V,D): 0.71 cm2 PA V2 max: 144.9 cm/sec ECHO/Echo Complete Interpretation Summary The study was technically difficult. Left ventricular systolic function is normal. The estimated ejection fraction is 65 %. Trivial mitral valve insufficiency. Trivial tricuspid valve insufficiency. Severe aortic stenosis. Trivial pulmonic valve insufficiency. Unable to estimate RV systolic pressure/pulmonary artery pressure due to techni shama difficult study. Transmitral doppler flow suggestive of impaired relaxation of left ventricle Ordering Physician: Robbin Vanegas Referring Physician: Robbin Vanegas Performed By: Annmarie Becerril RDCS
== END ==
PROVIDERS: PCP Family Medicine; Referring Provider Family Medicine; Visit Provider Family Medicine
DX: R01.1 Cardiac murmur, unspecified (principal)
CPT/HCPCS: 93306

== ENCOUNTER 2020-10-18 10:45 | Outpatient (RCR) | payer BC, SELFPAY ==
[2020-09-01 10:01] VITALS: BMI 33.0
[2020-09-20 09:50] LABS: Prothrombin Time (Protime)PT. 22.2 SECONDS (11.7-14.9)
[2020-09-27 11:54] LABS: Prothrombin Time (Protime)PT. 21.7 SECONDS (11.7-14.9)
[2020-10-11 10:40] LABS: International Normalized Ratio 1.6; Prothrombin Time (Protime)PT. 18.4 SECONDS (11.7-14.9)
[2020-10-18 11:40] LABS: International Normalized Ratio 1.5; Prothrombin Time (Protime)PT. 17.1 SECONDS (11.7-14.9)
== END 2020-10-18 18:00 | disposition home or self-care (01) ==
LOC: LAB 10:45
PROVIDERS: PCP Family Medicine; Referring Provider Internal Medicine Cardiovascular Disease; Visit Provider Internal Medicine Cardiovascular Disease
DX: Z95.2 Presence of prosthetic heart valve (principal); Z79.01 Long term (current) use of anticoagulants
CPT/HCPCS: 36415; 85610

== ENCOUNTER → 2020-10-27 13:02 | Outpatient (CLI) | payer BC, SELFPAY ==
[2020-09-01 10:01] VITALS: BMI 33.0
--- NOTE | 2020-10-27 13:09 | CR.HP_ITS ---
CR - History & Physical - General Arrival date:: 10/27/20 Arrival time:: 13:09 Date of Referral:: 10/16/20 Date of CR Evaluation:: 10/27/20 Referring Physician: Dr. Emmanuel Sow Primary Diagnosis: Heart vlave replacement - History of Present Cardiac Event Onset Date: Enter Onset Date of cardiac illnesses in Comment field below Heart valve replacement or repair:: Yes - 09/12/2020 - Sleep Disorder Evaluation Hx of Sleep Apnea: No Do you snore loudly (louder than talking or can be heard through closed doors)?: No Do you often feel tired/ fatigued/ sleepy during daytime?: No Has anyone observed you stop breathing during sleep?: No History of Hypertension (for STOP score): No STOP Results: Negative - Medications Home Medications: Ambulatory Orders Medication Instructions Recorded bupropion HCl 150 mg PO BID 02/06/15 cetirizine 10 mg PO DAILY 02/06/15 aspirin 81 mg PO DAILY 05/17/16 cholecalciferol (vitamin D3) 50,000 unit PO QWEEK 05/17/16 albuterol sulfate 1 - 2 puff INHALATION Q6H PRN PRN 10/25/16 warfarin 5 mg tablet 5 mg PO DAILY 09/15/20 acetaminophen 325 mg tablet 650 mg PO Q4H PRN tab 10/10/20 melatonin 5 mg tablet 5 mg PO HS PRN 10/10/20 oxycodone 5 mg tablet 5 mg PO Q6H PRN 10/10/20 pantoprazole 40 mg tablet,delayed 40 mg PO DAILY 10/10/20 release sennosides 8.6 mg-docusate sodium 1 tab-cap PO BID PRN tab 10/10/20 50 mg tablet metoprolol succinate 100 mg 100 mg PO BID #60 tab 10/16/20 tablet,extended release 24 hr - Allergies Allergies/Adverse Reactions: Allergies Penicillins Allergy (Verified 09/01/20 10:03) Unknown Advanced Directives - Advanced Directives Power of Client Development Manager: No Living Will: No Advance Directives Information Provided: No Advance Directives on File: No DNR Order?:: No Past Medical History - Covid-19 Screening Fever: No - Pt has previously had COVID in May Unexplained muscle aches: No Current respiratory symptoms: No Upper respiratory infections symptoms: No Gastro-intestinal symptoms: No [id number] symptoms: No Has tested positive for COVID-19 in last 30 days: No Had contact w/person w/symptoms or Covid-19 (+) last 14 days: No Has High Risk Exposures ID'd by Health dept/Inf Control team: No 65 years or older:: No Lives in Assisted Living facility:: No Has a chronic lung disease or moderate to severe asthma:: No Has a serious heart condition:: Yes Immunocompromised:: No Severely obese (Body Mass Index of 40 or higher):: No Diabetic:: No Has chronic kidney disease undergoing dialysis:: No Has liver disease:: No - Past Medical Illness Medical History: Past Medical History (Last Updated 10/10/20 @ 10:27 by Lian Moore) Anxiety F41.9 Aortic root dilatation I77.810 Back pain M54.9 Bicuspid aortic valve Q23.1 Cardiac murmur R01.1 Esophageal stricture K22.2 Essential hypertension I10 Fatigue R53.83 GERD (gastroesophageal reflux disease) K21.9 correction (current) use of anticoagulants Z79.01 Palpitations R00.2 Ventricular ectopy I49.3 - Past Surgical History Surgical History: Past Surgical History (Last Updated 10/10/20 @ 10:23 by Lian Moore) History of carpal tunnel release Z98.890 History of cholecystectomy Onset Date: ~2007 Z90.49 History of colonoscopy Onset Date: ~2015 Z98.890 History of esophageal dilatation Onset Date: ~09/2018 Z98.890 History of esophagogastroduodenoscopy (EGD) Z98.890 10/12/18 History of fusion of cervical spine Z98.1 History of mechanical aortic valve replacement Onset Date: ~09/12/20 Z95.2 On-X Aortic Valve replacement (Mechanical) placed at [facility] 09/12/2020 History of vasectomy Z98.52 Surgical History: cholecystectomy - Family History Summary Family History: Family History (Last Reviewed 09/01/20 @ 10:08 by Lian Moore) Father Hypertension Alzheimer disease Mother Breast cancer Social History - Smoking History Smoking Status: Former smoker Years Smokin Packs Smoked per Day: 2 Hx Smoking Cessation Date: 04/21/04 Hx Tobacco Use: Yes Hx Smoking Exposure: No - Alcohol Use Alcohol Usage: Yes - 1 a day - Occupation Occupation (List type of work in comments):: Employed Hours worked per day:: 8 - Hobbies, Recreation, Social Activities Hobbies: Sports, Other - motorcycles Recreational Activities: I am able to engage in all my recreational activities Social Environment - Status Marital Status: - Current Living Arrangements Living Environment:: Spouse - Children How many children do you have?: 7 Do any of your children live nearby?: Yes - Safety Do you feel safe in your surroundings?: Yes - Assistance Do you need any assistance at home?: no Review of Systems - Review of Systems Hints: Right click = Denies ([place]ash). Left click = Reports ([place]) Review of Present Symptoms: Reports: Shortness of Breath with Exertion, Operative Discomfort - incisional tenderness, Fatigue, Appetite - Normal. Denies: Shortness of Breath at Rest, PVD, Angina, Wound Healing, Dizziness/Lightheadedness, Heart Arrhythmia/Irregularities, Appetite - Special Diet, Sleep - Normal, Sexual Changes - Pain Is Patient Pain Free?: No Pain Location: chest Pain Level: 09/28 Risk Factor Assessment - Vital Signs Pulse Ox: 98 Blood Pressure: 108/64 - Pulse Pulse Rate: 82 Pulse Rhythm: Regular - Hypertension How long have you been treated?: 4 years - Obesity Height: 5 ft 9 in Weight:: 101.151 kg Weight in Pounds: 223.0 lbs Body Mass Index (BMI): 32.9 Nutritional Referral for Obesity: Yes - Physical Inactivity Physical Inactivity: Reg Exercise 30 min/day - walking - Family History Family History: Family History (Last Reviewed 09/01/20 @ 10:08 by Lian Moore) Father Hypertension Alzheimer disease Mother Breast cancer Motivation - Motivation to Participate On a scale of 1 to 10, how prepared are you to commit to attending program?: 9 What do you see as barriers to successfully being able to complete the program?: none What do you see as the benefits of succesfully completing the program? In other words, what do you hope to get out of participating in the program?: improved health Are there issues you are dealing with that will interfere with completing the program?: no Do you have a spouse or signficant other, family or friends who will help support you to complete the program?: yes
--- NOTE | 2020-10-27 13:09 | CR.ITP_ITS ---
Diagnosis - General Information Admitting Diagnosis: Heart valve replacement Personal Learning Style:: Audio/Visual Stage of change r/t lifestyle modifications:: Contemplation Gave educational material for:: Treating Heart Disease, Emotions & Heart Disease, Stress Management & Relaxation, Sleep Disorders & Heart Disease, How The Heart Works, What it means to have Heart Disease, How Coronary Artery Disease is Diagnosed, Heart Procedures, What Heart Medications Do, Risk Factors & Modifications, Living an Active Life, Nutrition - Education/Goals Cardiac Rehabilitation Goals: 1. Maintain the individual as the primary focus of care. 2. To improve the patient's quality of life. 3. Identification of cardiac risk factors and provide cardiac risk factor management. 4. Enhance the psychosocial status of the patient. 5. Reconditioning enough to allow the patient to resume customary activities. 6. Control symptoms of cardiac disease Personal Goals: Initial Assessment: Improve energy level, Participate in home exercise program, Get back to work, or to resume activities faster, Improve muscle strength and endurance, Improve diet and eating habits (eat healthier), Control risk factors (learn risk factor modification) Scale for measuring improvement of personal goals: Enter appropriate number in Comments. 2 = Unchanged. 3 = Slightly Better. 4 = Moderate Improvement. 5 = Met my Goal - Diagnosis & Disease Process Outcomes/Goals: Pt IDs own risk factors & lifestyle modifications by Session 10, Verbalizes symptoms of angina & response by session 3., Pt independently manages, Other Additional Outcomes/Goals: Plan/Interventions: Assist Pt to ID & engage in lifestyle modification to reduce CVD risk, Instruct on individual risk factors, Review symptoms of angina & emergency actions, Review secondary diagnosis & identify educational needs., Other see comment 30 day Reassessments:: Not Met 30 day Reassessments:: Not Met 30 day Reassessments:: Not Met 30 day Reassessments:: Not Met Final Reassessments:: Not Met - Safety Referral to Physical Therapy: No Referral to [facility] Case Management: No Fall Risk Assessed:: Yes Assistive Devices:: None Exercise - Initial Assessment - Visit Date of Eval: 10/27/20 - initial eval Mets: Pre-: >3 METS for 30 minutes by discharge, >5 METS for 30 minutes by discharge, >7 METS for 30 minutes by discharge, Unable to meet goal due to: (see comment below) - Physician Prescribed Exercise Modalities: Treadmill, Airdyne, NuStep, SciFit Frequency: 3x/week for 12 weeks [36 sessions] Intensity: 60-80% of age predicted maximum heart rate reserve Target Heart Rate:: 107-140 - Outcomes & Goals Goals:: Verbalizes understanding of THR, RPE & goal METS by session 6, Documents in home exercise log/reports 30 min aerobic 5 day/wk by DC, Demonstrates accurate pulse taking by DC, Other additional outcome/goals: see below - Intervention & Plan Exercise Program Goals: Instruct on personal THR & RPE, Instruct on MET level & personal MET goal, Show patient to take own pulse /validate performance until accurate, Instruct on home exercise, Other additional plan/int - Physical Activity Home Exercise Physical Activity - Home Exercise: Safe Exercise, Warm-up, Self-monitoring, Cool-Down, Home Exercise > 30 min Daily, Sitting Time <3 hours/daily - Outcomes & Goals Outcomes/Goals: Demonstrates correct Warm-up/exercise Cool-Down (S3) if = 2.5 METs, Verbalizes symptoms of exercise intolerance by Session 3 (S3), Demonstrate safe equipment use (S3) & follows exercise prescrition (6), Other: See below - Intervention & Plan Plan/Intervention: Instruct warm-up & cool-down if exercising at > 2 METs, Instruct on symptoms of exercise intolerance & actions to take, Instruct & monitor on saf, Assess intial functional capacity & safety risk, Other See below Nutrition - Initial Assessment - Visit Date of Assessment:: 10/27/20 - initial eval - Cholesterol/Lipids Determine presence & major risk factors that modify LDL goal: Hypertension or hypertensive medication, Low HDL cholesterol <40 mg/dL*, Family history of premature CHD in Male < 55 years: female <65 yearsFa, Age men > 45 years; women >/= 55 years Outcomes/Goals: Pt IDs own risk factors & lifestyle modifications by Session 10, Verbalizes symptoms of angina & response by session 3., Pt independently manages, Other Additional Outcomes/Goals: Intervention/Plan: Advocate for lipid panel cholesterol medication if applicable, Instruct on personal lipid levels & lipid goals/NCEP guidelines, Instruct on cholesterol, Other additional plan/int Referral to dietitian:: No - Weight Mgt (Other Care) Height: 5 ft 9 in Weight:: 101.151 kg BMI: 32.9 Outcomes/Goals: Pt sets, maintains & shows weight loss goal & trend during rehab, Other additional outcomes/goals Intervention/Plan: Instruct on ideal BMI & set weight loss goal w/patient, Assist pt to ID & incorporate diet changes for weight loss by S9, Refer to Structured Weight Loss program as appropriate, Encourage goal of using 250- 300dcal per session for weight loss, Other additional plan/interventions - Healthy Eating Habits Will attend diet classes:: Yes Outcomes/Goals:: Consume diet rich in vegs,fruits,whole grain/high fiber,fish,lean meat, Limit sat/trans fats,cholesterol & added salts & sugars, Other additional outcome/goals: Intervention/Plan:: Assess current eating habits, Other Additional plan/interventions - Education Gave educational materials for:: Signs & symptoms of hypoglycemia, Signs & symptoms of hyperglycemia, Relate diabetes to coronary artery disease, Healthy eating Nutrition - 30-Day Assessment Nutrition - 60-Day Assessment Nutrition - 90-Day Assessment Nutrition - Final Assessment Medical - Initial Assessment - Visit Date of Eval: 10/27/20 - initial eval - Medication Compliance Preventative Medication(s):: Aspirin, Beta jasmeet H/O mental health issues: depression, anxiety, or addiction?: Yes Doesn?t believe in the benefits of treatment?: No Believes medications are unnecessary or harmful?: No Has a concern about medication side effects?: No Expresses concern over the cost of medications?: No Outcomes/Goals: Verbalizes medications,desired effect & common side effects @ DC, Pt self-reports following medication regimen, Keeps card in wallet w/medications listed by DC, Other additional outcome/goals: Interventions/plans: Instruct on medication effects & side effects, Review medication list w/patient every two weeks, Instruct importance of taking meds as ordered & assist problem solving, Other additional - Tobacco Use Tobacco Use: Non-smoker Do you use smokeless tobacco?: Yes - Hypertension [place] [employer] Hypertension Guidelines: [place] [employer] Hypertension Guidelines. Normal BP Less than 120/80. Elevated BP 120/80. Hypertension Stage 1: BP 130-139/80-89. Hypertesnion Stage 2: BP 140 or higher/90 or higher. Hypertension Crisis: BP higher than 180/120 Outcomes/Goals: Able to verbalize/achieve optimal blood pressure <130/80, Incorporates diet changes & exercise for blood pressure control by DC, Other additional outcomes/goals Interventions/plan: Instruct on optimal blood pressure, hypertension & medications, Instruct on effects of sodium, alcohol, stress, exercise &hypertension, Other additional plan/interventions - Tobacco Cessation Referral Smoking Cessation Referral:: No Individual Education/Counseling:: No Education Schedule Given:: Yes Medical- 30-Day Assessment Medical- 60-Day Assessment Medical- 90-Day Assessment Medical - Final Assessment Psychosocial - Initial Assess - VIsit Date of Eval: 10/27/20 - initial eval History of previous Mental disease:: Yes History of Emotional Disorders: Anxious - Psychosocial Test Tool Used:: [employer] QOL Cardiac, PHQ-9 Questionnaire phq-9 Severity: Severity. 1-4 Minimal Depression. 5-9 Mild Depression. 10-14 Moderate Depression. 15-19 Moderately Sever Depression. 20-27 Severe Depression. Rule: - Outcomes/Goals: See list Psychosocial Outcomes/Goals:: ID's personal stressors & 2 strategies to manage stress by discharge, Other Additional outcome/goals: - Intervention/Plan: See List Interventions/Plan:: Assess stressors,coping strategies & signs of derpression on admission, Instruct/assist pt to develop coping & personal stress Mgt strategies, Refer to Behavioral Health if appropriate, Refer to Physician if appropriate, Instruct patient to recognize signs & symptoms of depression, Instruct patient to recog, Other additional plan/intervention Psychosocial - 30-Day Assess Psychosocial - 60-Day Assess Psychosocial - 90-Day Assess Psychosocial - Final Assessmen Patient Health Questionnaire Initial Assessment 1. Little interest or pleasure in doing things: Several days 2. Feeling down, depressed, or hopeless: Several days 3. Trouble falling or staying asleep, or sleeping too much: Nearly every day 4. Feeling tired or having little energy: More than half the days 5. Poor appetite or overeating: More than half the days 6. Feeling bad about yourself -- or that you are a failure or have let yourself or your family down: Not at all 7. Trouble concentrating on things, such as reading the newspaper or watching television: Several days 8. Moving or speaking so slowly that other people could have noticed. Or the opposite - being so fidgety or restless that you have been moving around a lot more than usual: Not at all 9. Thoughts that you would be better off , or of hurting yourself in some way: Not at all How difficult have these problems made it for you to do your work, take care of things at home, or get along with other people?: Somewhat difficult Total Score: 10 DIDIER-Q SV Test - Statements CAD is a disease of the arteries in the heart: False Examples of risk factors for heart disease: True Angina is chest pain or discomfort: True The benefits of resistance training include: True Eating more meat and dairy products: False Anti-platelet medications such as aspirin are important: I Don't Know The only effective way to manage stress: False An exercise warm-up slowly increases heart rate: I Don't Know Prepared, processed foods usually have high sodium: True Depression is common after a heart attack: I Don't Know The statin medications lower cholesterol: I Don't Know To control blood pressure, lower the amount of sodium: True If someone gets chest discomfort during walking: False Transfats are partially hydrogenated vegetable oils: I Don't Know Sleep apnea that is not treated increases the risk: I Don't Know To control cholesterol, one should become a vegetarian: I Don't Know Someone knows if he/she is exercising at the right level: True Diabetes cannot be prevented with exercise & health eating: False Stress is a large risk for heart attack: True A diet that can help lower blood pressure is rich in: True - Total Score Total Correct Responses: 13 Self-Efficacy Initial Assessment We would like to know how confident you are in doing certain activities. Please select your confidence level for:: Select your confidence level for the following using the scale 1-10 where 1 is not at all confident and 10 is totally confident. Your score is the average of all 6 responses. Fatigue: How confident are you that you can keep the fatigue caused by your disease from interfering with the things you want to do? Select Number: 6 Physical Discomfort or Pain: How confident are you that you can keep the physical discomfort or pain of your disease from interfering with the things you want to do? Select Number: 5 Emotional Distress: How confident are you that you can keep the emotional distress caused by your disease from interfering with the things you want to do? Select Number: 6 Other Symptoms or Health Problems: How confident are you that you can keep other symptoms or health problems from interfering with the things you want to do? Select Number: 6 Different Tasks and Activities: How confident are you that you can do the different tasks and activities needed to manage your health condition so as to reduce your need to see a doctor? Select Number: 7 Medication: How confident are you that you can do things other than just taking medication to reduce how much your illness affects your everyday life? Select Number: 8 Total Score:: 6 Nutrition Survey - Nutrition Survey Initial Have you lost >10 lbs over the past 2 months without trying?: No Are you following a special diet at home for diabetes, low fat, or low salt?: No Are you interested in meeting with a dietitian for help understanding your diet?: Yes Do you eat less than 3 meals a day?: No Do you eat fatty meats (phipps, sausage, ribs, etc), fried foods, desserts, large amounts of salad dressings, margarine, butter, or cheese most days?: No Do you have food allergies? [Enter types in comment field]: No Do you eat in restaurants more than 3 times a week?: Yes Do you season food with salt, seasoning salt, or garlic salt?: Yes Do you used canned, boxed, frozen meals, or soups, seasoning packets?: Yes Total Score:: 4
[2020-10-27 14:05] VITALS: BMI 32.9
[2020-10-27 14:06] VITALS: BP 108/64; PULSE 82; O2SAT 98; BMI 32.9
== END ==
PROVIDERS: PCP Family Medicine; Referring Provider Internal Medicine Cardiovascular Disease; Visit Provider Internal Medicine Cardiovascular Disease
DX: Q23.1 Congenital insufficiency of aortic valve (principal); Z95.2 Presence of prosthetic heart valve

== ENCOUNTER 2020-11-15 09:11 | Outpatient (RCR) | payer BC, SELFPAY ==
[2020-10-27 14:05] VITALS: BMI 32.9
[2020-10-27 14:06] VITALS: BMI 32.9
[2020-11-01 11:22] LABS: International Normalized Ratio 1.2; Prothrombin Time (Protime)PT. 14.4 SECONDS (11.7-14.9)
[2020-11-08 10:44] LABS: International Normalized Ratio 1.9; Prothrombin Time (Protime)PT. 21.4 SECONDS (11.7-14.9)
[2020-11-15 09:53] LABS: International Normalized Ratio 2.1; Prothrombin Time (Protime)PT. 22.8 SECONDS (11.7-14.9)
== END 2020-11-15 18:00 | disposition home or self-care (01) ==
LOC: LAB 09:11
PROVIDERS: PCP Family Medicine; Referring Provider Internal Medicine Cardiovascular Disease; Visit Provider Internal Medicine Cardiovascular Disease
DX: Z95.2 Presence of prosthetic heart valve (principal); Z79.01 Long term (current) use of anticoagulants
CPT/HCPCS: 36415; 85610

== ENCOUNTER 2020-11-17 15:15 | Outpatient (RCR) | payer BC, SELFPAY ==
[2020-09-01 10:01] VITALS: BMI 33.0
[2020-10-25 10:52] LABS: International Normalized Ratio 1.6; Prothrombin Time (Protime)PT. 18.4 SECONDS (11.7-14.9)
[2020-10-27 14:05] VITALS: BMI 32.9
[2020-10-27 14:06] VITALS: BMI 32.9
== END 2020-11-18 23:59 ==
LOC: CR 15:15
PROVIDERS: PCP Family Medicine; Referring Provider Internal Medicine Cardiovascular Disease; Visit Provider Internal Medicine Cardiovascular Disease
DX: Z95.2 Presence of prosthetic heart valve (principal); Q23.1 Congenital insufficiency of aortic valve; I35.0 Nonrheumatic aortic (valve) stenosis
CPT/HCPCS: 36415; 85610; 93798

== ENCOUNTER 2020-11-29 09:30 | Outpatient (RCR) | payer BC, SELFPAY ==
[2020-10-27 14:05] VITALS: BMI 32.9
[2020-11-01 11:34] VITALS: BMI 32.9
[2020-11-27 09:19] VITALS: BMI 33.0
[2020-11-29 10:06] LABS: International Normalized Ratio 1.8; Prothrombin Time (Protime)PT. 20.2 SECONDS (11.7-14.9)
== END 2020-11-29 18:00 | disposition home or self-care (01) ==
LOC: LAB 09:30
PROVIDERS: PCP Family Medicine; Referring Provider Internal Medicine Cardiovascular Disease; Visit Provider Internal Medicine Cardiovascular Disease
DX: Z95.2 Presence of prosthetic heart valve (principal); Z79.01 Long term (current) use of anticoagulants
CPT/HCPCS: 36415; 85610

== ENCOUNTER 2020-12-18 15:15 | Outpatient (RCR) | payer BC, SELFPAY ==
[2020-10-27 14:05] VITALS: BMI 32.9
[2020-11-01 11:34] VITALS: BMI 32.9
--- NOTE | 2020-11-27 09:04 | PCM.CR.ITP ---
Diagnosis - General Information Admitting Diagnosis: heart valve replacement Exercise - 30-day Assessment - Visit Date of Eval: 11/27/20 Session #:: 12 - Physician Prescribed Exercise Modalities: Treadmill, Airdyne Frequency: 3x/week for 12 weeks [36 sessions] Intensity: 60-80% of age predicted maximum heart rate reserve Current METSs:: 6 Target Heart Rate:: 107-140 Current RPE:: 12-15 Maximum Excercise HR:: 150 Resting Blood Pressure: 108/68 EKG Type: NSR to sinus tachy with rare PAC and PVC - Outcomes & Goals Goals:: Verbalizes understanding of THR, RPE & goal METS by session 6, Documents in home exercise log/reports 30 min aerobic 5 day/wk by DC, Demonstrates accurate pulse taking by DC, Other additional outcome/goals: see below - Intervention & Plan Exercise Program Goals: Instruct on personal THR & RPE, Instruct on MET level & personal MET goal, Show patient to take own pulse /validate performance until accurate, Instruct on home exercise, Other additional plan/int - 30-day Reassessments 30 day Reassessments:: Progressing - Physical Activity Home Exercise Physical Activity - Home Exercise: Safe Exercise, Warm-up, Self-monitoring, Cool-Down, Home Exercise > 30 min Daily, Sitting Time <3 hours/daily - Outcomes & Goals Outcomes/Goals: Demonstrates correct Warm-up/exercise Cool-Down (S3) if = 2.5 METs, Verbalizes symptoms of exercise intolerance by Session 3 (S3), Demonstrate safe equipment use (S3) & follows exercise prescrition (6), Other: See below - Intervention & Plan Plan/Intervention: Instruct warm-up & cool-down if exercising at > 2 METs, Instruct on symptoms of exercise intolerance & actions to take, Instruct & monitor on saf, Assess intial functional capacity & safety risk, Other See below - 30-day Reassessments 30 day Reassessments:: Progressing Nutrition - Initial Assessment Nutrition - 30-Day Assessment - Visit Date of Assessment:: 11/27/20 Session #:: 12 - Cholesterol/Lipids Determine presence & major risk factors that modify LDL goal: Hypertension or hypertensive medication, Low HDL cholesterol <40 mg/dL*, Family history of premature CHD in Male < 55 years: female <65 yearsFa, Age men > 45 years; women >/= 55 years Outcomes/Goals: Pt IDs own risk factors & lifestyle modifications by Session 10, Verbalizes symptoms of angina & response by session 3., Pt independently manages, Other Additional Outcomes/Goals: Intervention/Plan: Advocate for lipid panel cholesterol medication if applicable, Instruct on personal lipid levels & lipid goals/NCEP guidelines, Instruct on cholesterol, Other additional plan/int Referral to dietitian:: No 30-day Reassessments:: Progressing - Weight Mgt (Other Care) Height: 5 ft 9 in Weight:: 101.378 kg BMI: 33.0 Outcomes/Goals: Pt sets, maintains & shows weight loss goal & trend during rehab, Other additional outcomes/goals Intervention/Plan: Instruct on ideal BMI & set weight loss goal w/patient, Assist pt to ID & incorporate diet changes for weight loss by S9, Refer to Structured Weight Loss program as appropriate, Encourage goal of using 250-300dcal per session for weight loss, Other additional plan/interventions 30 day Reassessments:: Progressing - Healthy Eating Habits Will attend diet classes:: Yes Outcomes/Goals:: Consume diet rich in vegs,fruits,whole grain/high fiber,fish,lean meat, Limit sat/trans fats,cholesterol & added salts & sugars, Other additional outcome/goals: Intervention/Plan:: Assess current eating habits, Other Additional plan/interventions 30-day Reassessments:: Progressing - Education Gave educational materials for:: Signs & symptoms of hypoglycemia, Signs & symptoms of hyperglycemia, Relate diabetes to coronary artery disease, Healthy eating Nutrition - 60-Day Assessment Nutrition - 90-Day Assessment Nutrition - Final Assessment Medical - Initial Assessment Medical- 30-Day Assessment - Visit Date of Eval: 11/27/20 Session #:: 12 - Medication Compliance Preventative Medication(s):: Aspirin, Beta jasmeet H/O mental health issues: depression, anxiety, or addiction?: Yes Doesn?t believe in the benefits of treatment?: No Believes medications are unnecessary or harmful?: No Has a concern about medication side effects?: No Expresses concern over the cost of medications?: No Outcomes/Goals: Verbalizes medications,desired effect & common side effects @ DC, Pt self-reports following medication regimen, Keeps card in wallet w/medications listed by DC, Other additional outcome/goals: Interventions/plans: Instruct on medication effects & side effects, Review medication list w/patient every two weeks, Instruct importance of taking meds as ordered & assist problem solving, Other additional 30-day Reassessments:: Progressing - Tobacco Use Tobacco Use: Non-smoker Do you use smokeless tobacco?: Yes 30-day Reassessments:: Progressing - Hypertension Resting Blood Pressure:: 108/68 [place] [employer] Hypertension Guidelines: [place] [employer] Hypertension Guidelines. Normal BP Less than 120/80. Elevated BP 120/80. Hypertension Stage 1: BP 130-139/80-89. Hypertesnion Stage 2: BP 140 or higher/90 or higher. Hypertension Crisis: BP higher than 180/120 Peak Exercise Blood Pressure:: 172/88 Outcomes/Goals: Able to verbalize/achieve optimal blood pressure <130/80, Incorporates diet changes & exercise for blood pressure control by DC, Other additional outcomes/goals Interventions/plan: Instruct on optimal blood pressure, hypertension & medications, Instruct on effects of sodium, alcohol, stress, exercise &hypertension, Other additional plan/interventions 30 day Reassessments:: Progressing - Tobacco Cessation Referral Smoking Cessation Referral:: No Individual Education/Counseling:: No Education Schedule Given:: Yes Medical- 60-Day Assessment Medical- 90-Day Assessment Medical - Final Assessment Psychosocial - Initial Assess Psychosocial - 30-Day Assess - VIsit Date of Eval: 11/27/20 Session #:: 12 History of previous Mental disease:: Yes History of Emotional Disorders: Anxious - Outcomes/Goals: See list Psychosocial Outcomes/Goals:: ID's personal stressors & 2 strategies to manage stress by discharge, Other Additional outcome/goals: - Intervention/Plan: See List Interventions/Plan:: Assess stressors,coping strategies & signs of derpression on admission, Instruct/assist pt to develop coping & personal stress Mgt strategies, Refer to Behavioral Health if appropriate, Refer to Physician if appropriate, Instruct patient to recognize signs & symptoms of depression, Instruct patient to recog, Other additional plan/intervention - 30-day Reassessments: 30 day Reassessments:: Progressing Psychosocial - 60-Day Assess Psychosocial - 90-Day Assess Psychosocial - Final Assessmen Patient Health Questionnaire 30-Day Re-eval Assessment 1. Little interest or pleasure in doing things: Several days 2. Feeling down, depressed, or hopeless: Several days 3. Trouble falling or staying asleep, or sleeping too much: Nearly every day 4. Feeling tired or having little energy: More than half the days 5. Poor appetite or overeating: More than half the days 6. Feeling bad about yourself -- or that you are a failure or have let yourself or your family down: Not at all 7. Trouble concentrating on things, such as reading the newspaper or watching television: Several days 8. Moving or speaking so slowly that other people could have noticed. Or the opposite - being so fidgety or restless that you have been moving around a lot more than usual: Not at all 9. Thoughts that you would be better off , or of hurting yourself in some way: Not at all How difficult have these problems made it for you to do your work, take care of things at home, or get along with other people?: Somewhat difficult Total Score: 10 Self-Efficacy 30-Day Re-eval Assessment We would like to know how confident you are in doing certain activities. Please select your confidence level for:: Select your confidence level for the following using the scale 1-10 where 1 is not at all confident and 10 is totally confident. Your score is the average of all 6 responses. Fatigue: How confident are you that you can keep the fatigue caused by your disease from interfering with the things you want to do? Select Number: 6 Physical Discomfort or Pain: How confident are you that you can keep the physical discomfort or pain of your disease from interfering with the things you want to do? Select Number: 5 Emotional Distress: How confident are you that you can keep the emotional distress caused by your disease from interfering with the things you want to do? Select Number: 6 Other Symptoms or Health Problems: How confident are you that you can keep other symptoms or health problems from interfering with the things you want to do? Select Number: 6 Different Tasks and Activities: How confident are you that you can do the different tasks and activities needed to manage your health condition so as to reduce your need to see a doctor? Select Number: 7 Medication: How confident are you that you can do things other than just taking medication to reduce how much your illness affects your everyday life? Select Number: 8 Total Score:: 6 Nutrition Survey
[2020-11-27 09:19] VITALS: BP 108/68; BP 172/88; BMI 33.0
== END 2020-12-19 23:59 ==
LOC: CR 15:15
PROVIDERS: PCP Family Medicine; Referring Provider Internal Medicine Cardiovascular Disease; Visit Provider Internal Medicine Cardiovascular Disease
DX: Q23.1 Congenital insufficiency of aortic valve (principal); Z95.2 Presence of prosthetic heart valve
CPT/HCPCS: 93798

== ENCOUNTER 2020-12-19 14:30 | Outpatient (RCR) | payer BC, SELFPAY ==
[2020-10-27 14:05] VITALS: BMI 32.9
[2020-10-27 14:06] VITALS: BMI 32.9
[2020-11-01 11:34] VITALS: BMI 32.9
[2020-11-27 09:19] VITALS: BMI 33.0
== END 2020-12-19 23:59 ==
LOC: NS 14:30
PROVIDERS: PCP Family Medicine; Visit Provider Internal Medicine Cardiovascular Disease
DX: Z71.3 Dietary counseling and surveillance (principal); E66.9 Obesity, unspecified; Z68.32 Body mass index [BMI] 32.0-32.9, adult
CPT/HCPCS: 97802; 97803

== ENCOUNTER 2021-01-02 16:31 | Outpatient (RCR) | payer BC, SELFPAY ==
[2020-11-27 09:19] VITALS: BMI 33.0
[2020-12-20 00:16] VITALS: BMI 32.9
[2020-12-27 06:50] VITALS: BMI 32.5
== END 2021-01-18 23:59 ==
LOC: NS 16:31
PROVIDERS: PCP Family Medicine; Visit Provider Internal Medicine Cardiovascular Disease
DX: Z71.3 Dietary counseling and surveillance (principal); E66.9 Obesity, unspecified; Z68.33 Body mass index [BMI] 33.0-33.9, adult
CPT/HCPCS: 97803

== ENCOUNTER 2021-01-17 09:50 | Outpatient (RCR) | payer BC, SELFPAY ==
[2020-11-27 09:19] VITALS: BMI 33.0
[2020-12-19 23:28] VITALS: BMI 32.9
[2020-12-20 10:54] LABS: International Normalized Ratio 2.2; Prothrombin Time (Protime)PT. 23.3 SECONDS (11.7-14.9)
[2021-01-04 11:19] LABS: International Normalized Ratio 1.9
[2021-01-17 11:05] LABS: International Normalized Ratio 1.6; Prothrombin Time (Protime)PT. 18.7 SECONDS (11.7-14.9)
== END 2021-01-17 18:00 | disposition home or self-care (01) ==
LOC: LAB 09:50
PROVIDERS: PCP Family Medicine; Referring Provider Internal Medicine Cardiovascular Disease; Visit Provider Internal Medicine Cardiovascular Disease
DX: Z95.2 Presence of prosthetic heart valve (principal); Z79.01 Long term (current) use of anticoagulants
CPT/HCPCS: 36415; 85610

== ENCOUNTER 2021-01-17 15:15 | Outpatient (RCR) | payer BC, SELFPAY ==
[2020-11-27 09:19] VITALS: BMI 33.0
[2020-12-20 00:38] VITALS: BP 108/68; BP 172/88; BMI 32.9
--- NOTE | 2020-12-27 06:38 | CR.ITP_ITS ---
Diagnosis Exercise - 60-day Assessment - Visit Date of Eval: 12/27/20 Session #:: 17 - Patient missed CR session from 12/01/20 through 12/18/20 due to a pre-planed vacation prior to his cardiac event. - Physician Prescribed Exercise Modalities: Treadmill, Airdyne, NuStep Frequency: 3x/week for 12 weeks [36 sessions] Intensity: 60-80% of age predicted maximum heart rate reserve Current METSs:: 6.5 Patient's Goal is 7.0 Target Heart Rate:: 107-140 Current RPE:: 14-15 Maximum Excercise HR:: 141 Resting Blood Pressure: 110/70 Maximum Exercise Blood Pressure: 134/74 - while on the [employer] EKG Type: NSR to sinus tach with a rare PAC and PVC noted. Current Physical Activity or Exercising minutes: 35-40 - Outcomes & Goals Goals:: Verbalizes understanding of THR, RPE & goal METS by session 6, Documents in home exercise log/reports 30 min aerobic 5 day/wk by DC, Demonstrates accurate pulse taking by DC - Intervention & Plan Exercise Program Goals: Instruct on personal THR & RPE, Instruct on MET level & personal MET goal, Show patient to take own pulse /validate performance until accurate, Instruct on home exercise - 30-day Reassessments 30 day Reassessments:: Progressing - Physical Activity Home Exercise Physical Activity - Home Exercise: Safe Exercise, Warm-up, Self-monitoring, Cool-Down, Home Exercise > 30 min Daily, Sitting Time <3 hours/daily - Outcomes & Goals Outcomes/Goals: Demonstrates correct Warm-up/exercise Cool-Down (S3) if = 2.5 METs, Verbalizes symptoms of exercise intolerance by Session 3 (S3), Demonstrate safe equipment use (S3) & follows exercise prescrition (6) - Intervention & Plan Plan/Intervention: Instruct warm-up & cool-down if exercising at > 2 METs, Instruct on symptoms of exercise intolerance & actions to take, Instruct & monitor on saf, Assess intial functional capacity & safety risk - 30-day Reassessments 30 day Reassessments:: Met Nutrition - Initial Assessment Nutrition - 30-Day Assessment Nutrition - 60-Day Assessment - Program Goals Nutrition Program Goals: LDL <100 optimal. 100 - 129 Near optimal. 130 - 159 Borderline High. 160 - 189 High. Total Cholesterol <200 desirable. 200 - 239 Borderline High. >/= 240 High. HDL < 40 Low >/=60 High. Triglycerides <150 desirable. <199 optimal. VlDL 5 - 40. HgbA1C <7%. BMI <25 Patient has diagnosis of Hyperlipidemia (ICD E78)?: Yes - Visit Date of Assessment:: 12/27/20 Session #:: 17 - Cholesterol/Lipids Triglycerides (mg/dL): 215 - 01/18/2020 Total Cholesterol (mg/dL): 216 LDL Cholesterol (mg/dL): 115 HDL Cholesterol (mg/dL): 58 Determine presence & major risk factors that modify LDL goal: Hypertension or hypertensive medication, Low HDL cholesterol <40 mg/dL*, Age men > 45 years; women >/= 55 years Outcomes/Goals: Pt IDs own risk factors & lifestyle modifications by Session 10, Verbalizes symptoms of angina & response by session 3., Pt independently manages Intervention/Plan: Instruct on personal lipid levels & lipid goals/NCEP guidelines, Instruct on cholesterol Referral to dietitian:: No - Patient met with Nutrition Services on 11/27/20 30-day Reassessments:: Progressing - Diabetes (Other Core Measures) Diabetes Type: Not Applicable - Weight Mgt (Other Care) Height: 5 ft 9 in Weight:: 220 lb 8 oz BMI: 32.5 Diagnosis Overweight/Obesity BMI> 30% ICD-10 E66: Yes Diagnosis High BMI/Morbid Obesity BMI> 35% ICD-10 Z68: No Outcomes/Goals: Pt sets, maintains & shows weight loss goal & trend during rehab Intervention/Plan: Instruct on ideal BMI & set weight loss goal w/patient, Assist pt to ID & incorporate diet changes for weight loss by S9, Encourage goal of using 250-300dcal per session for weight loss 30 day Reassessments:: Progressing - Patient is donw 6 pounds this 30-day period - Congratulations! - Healthy Eating Habits Will attend diet classes:: Yes Outcomes/Goals:: Consume diet rich in vegs,fruits,whole grain/high fiber,fish,lean meat, Limit sat/trans fats,cholesterol & added salts & sugars Intervention/Plan:: Assess current eating habits 30-day Reassessments:: Progressing - Education Gave educational materials for:: Healthy eating Nutrition - 90-Day Assessment Nutrition - Final Assessment Medical - Initial Assessment Medical- 30-Day Assessment Medical- 60-Day Assessment - Visit Date of Eval: 12/27/20 Session #:: 17 - Medication Compliance Preventative Medication(s):: Aspirin H/O mental health issues: depression, anxiety, or addiction?: No Doesn?t believe in the benefits of treatment?: No Believes medications are unnecessary or harmful?: No Has a concern about medication side effects?: No Expresses concern over the cost of medications?: No Outcomes/Goals: Verbalizes medications,desired effect & common side effects @ DC, Pt self-reports following medication regimen, Keeps card in wallet w/medications listed by DC Interventions/plans: Instruct on medication effects & side effects, Review medication list w/patient every two weeks, Instruct importance of taking meds as ordered & assist problem solving 30-day Reassessments:: Met - Tobacco Use Tobacco Use: Non-smoker - Hypertension Hypertension Diagnosis:: Hypertension ICD-10 I10 Resting Blood Pressure:: 110/70 - well controlled [place] [employer] Hypertension Guidelines: [place] [employer] Hypertension Guidelines. Normal BP Less than 120/80. Elevated BP 120/80. Hypertension Stage 1: BP 130-139/80-89. Hypertesnion Stage 2: BP 140 or higher/90 or higher. Hypertension Crisis: BP higher than 180/120 Peak Exercise Blood Pressure:: 134/74 - on Ros[facility] Wolfe Outcomes/Goals: Able to verbalize/achieve optimal blood pressure <130/80, Incorporates diet changes & exercise for blood pressure control by DC Interventions/plan: Instruct on optimal blood pressure, hypertension & medications, Instruct on effects of sodium, alcohol, stress, exercise &hypertension 30 day Reassessments:: Met - Tobacco Cessation Referral Smoking Cessation Referral:: No Individual Education/Counseling:: No Education Schedule Given:: Yes Medical- 90-Day Assessment Medical - Final Assessment Psychosocial - Initial Assess Psychosocial - 30-Day Assess Psychosocial - 60-Day Assess - VIsit Date of Eval: 12/27/20 Session #:: 17 Not Applicable: Yes History of previous Mental disease:: No - Psychosocial Test Tool Used:: PHQ-9 Questionnaire phq-9 Severity: Severity. 1-4 Minimal Depression. 5-9 Mild Depression. 10-14 Moderate Depression. 15-19 Moderately Sever Depression. 20-27 Severe Depression. Rule: - Referral to Behavioral Health PS - Interventions: Yes Attend Stress Management Classes, No Referral to Behavioral Health if PHQ-9 score >9:, No Referral to [facility], No Referral to Physician if PHQ-9 if score is 5-9: - Outcomes/Goals: See list Psychosocial Outcomes/Goals:: ID's personal stressors & 2 strategies to manage stress by discharge - Intervention/Plan: See List Interventions/Plan:: Assess stressors,coping strategies & signs of derpression on admission, Instruct/assist pt to develop coping & personal stress Mgt strategies, Instruct patient to recognize signs & symptoms of depression, Instruct patient to recog - 30-day Reassessments: 30 day Reassessments:: Progressing - Working on reducing his job related stress, delegating more. Psychosocial - 90-Day Assess Psychosocial - Final Assessmen Patient Health Questionnaire 60-Day Re-eval Assessment 1. Little interest or pleasure in doing things: Not at all 2. Feeling down, depressed, or hopeless: Not at all 3. Trouble falling or staying asleep, or sleeping too much: Several days 4. Feeling tired or having little energy: Several days 5. Poor appetite or overeating: Not at all 6. Feeling bad about yourself -- or that you are a failure or have let yourself or your family down: Not at all 7. Trouble concentrating on things, such as reading the newspaper or watching television: Not at all 8. Moving or speaking so slowly that other people could have noticed. Or the opposite - being so fidgety or restless that you have been moving around a lot more than usual: Not at all 9. Thoughts that you would be better off , or of hurting yourself in some way: Not at all How difficult have these problems made it for you to do your work, take care of things at home, or get along with other people?: Not difficult at all Total Score: 2 Self-Efficacy 60-Day Re-eval Assessment We would like to know how confident you are in doing certain activities. Please select your confidence level for:: Select your confidence level for the following using the scale 1-10 where 1 is not at all confident and 10 is totally confident. Your score is the average of all 6 responses. Fatigue: How confident are you that you can keep the fatigue caused by your disease from interfering with the things you want to do? Select Number: 8 Physical Discomfort or Pain: How confident are you that you can keep the physical discomfort or pain of your disease from interfering with the things you want to do? Select Number: 7 Emotional Distress: How confident are you that you can keep the emotional distress caused by your disease from interfering with the things you want to do? Select Number: 8 Other Symptoms or Health Problems: How confident are you that you can keep other symptoms or health problems from interfering with the things you want to do? Select Number: 8 Different Tasks and Activities: How confident are you that you can do the different tasks and activities needed to manage your health condition so as to reduce your need to see a doctor? Select Number: 9 Medication: How confident are you that you can do things other than just taking medication to reduce how much your illness affects your everyday life? Select Number: 10 Total Score:: 8 Nutrition Survey
[2020-12-27 06:50] VITALS: BP 110/70; BP 134/74; BMI 32.5
== END 2021-01-18 23:59 ==
LOC: CR 15:15
PROVIDERS: PCP Family Medicine; Referring Provider Internal Medicine Cardiovascular Disease; Visit Provider Internal Medicine Cardiovascular Disease
DX: Q23.1 Congenital insufficiency of aortic valve (principal); Z95.2 Presence of prosthetic heart valve
CPT/HCPCS: 93798

== ENCOUNTER 2021-01-31 09:45 | Outpatient (RCR) | payer BC, SELFPAY ==
[2020-12-27 06:50] VITALS: BMI 32.5
[2021-01-18 21:19] VITALS: BMI 32.9
[2021-01-24 07:18] VITALS: BMI 32.8
[2021-01-31 11:11] LABS: AST(SGOT) 24 U/L (15-37); Alanine Aminotransfer ALT/SGPT 25 U/L (16-61); Albumin, Serum 3.4 g/dL (3.2-5.0); Alkaline Phosphatase 93 U/L (45-117); Bilirubin, Direct 0.17 mg/dL (0.00-0.30); Cholesterol 219 mg/dL (200); Globulin 3.4 g/dL (2.2-4.2); High Density Lipoprotein 48 mg/dL; Protein, Total 6.8 g/dL (6.4-8.2); Triglycerides 169 mg/dL; Very Low Density Lipoprotein 34 mg/dL (5-40)
[2021-01-31 15:53] LABS: International Normalized Ratio 1.9; Prothrombin Time (Protime)PT. 20.9 SECONDS (11.7-14.9)
== END 2021-02-18 18:00 | disposition home or self-care (01) ==
LOC: LAB 09:45
PROVIDERS: Nurse Practitioner Family; PCP Family Medicine; Referring Provider Internal Medicine Cardiovascular Disease; Visit Provider Internal Medicine Cardiovascular Disease
DX: I10 Essential (primary) hypertension (principal); E78.00 Pure hypercholesterolemia, unspecified; Z95.2 Presence of prosthetic heart valve; Z79.01 Long term (current) use of anticoagulants
CPT/HCPCS: 36415; 80061; 80076; 85610

== ENCOUNTER 2021-02-14 15:45 | Outpatient (RCR) | payer BC, SELFPAY ==
[2020-12-27 06:50] VITALS: BMI 32.5
[2021-01-19 00:29] VITALS: BP 110/70; BP 134/74; BMI 32.9
--- NOTE | 2021-01-24 07:09 | CR.ITP_ITS ---
Diagnosis Exercise - 90-day Assessment - Visit Date of Eval: 01/24/21 Session #:: 27 - Physician Prescribed Exercise Modalities: Treadmill, Airdyne, NuStep Frequency: 3x/week for 12 weeks [36 sessions] Intensity: 60-80% of age predicted maximum heart rate reserve Current METSs:: 6.5 Target Heart Rate:: 107-140 Current RPE:: 13-14 Maximum Excercise HR:: 138 Resting Blood Pressure: 102/58 Maximum Exercise Blood Pressure: 170/90 EKG Type: SR to Sinus tachy with rare PAC and PVC. - Outcomes & Goals Goals:: Verbalizes understanding of THR, RPE & goal METS by session 6, Documents in home exercise log/reports 30 min aerobic 5 day/wk by DC, Demonstrates accurate pulse taking by DC, Other additional outcome/goals: see below - Intervention & Plan Exercise Program Goals: Instruct on personal THR & RPE, Instruct on MET level & personal MET goal, Show patient to take own pulse /validate performance until accurate, Instruct on home exercise, Other additional plan/int - 30-day Reassessments 30 day Reassessments:: Progressing - Physical Activity Home Exercise Physical Activity - Home Exercise: Safe Exercise, Warm-up, Self-monitoring, Cool-Down, Home Exercise > 30 min Daily, Sitting Time <3 hours/daily - Outcomes & Goals Outcomes/Goals: Demonstrates correct Warm-up/exercise Cool-Down (S3) if = 2.5 METs, Verbalizes symptoms of exercise intolerance by Session 3 (S3), Demonstrate safe equipment use (S3) & follows exercise prescrition (6), Other: See below - Intervention & Plan Plan/Intervention: Instruct warm-up & cool-down if exercising at > 2 METs, Instruct on symptoms of exercise intolerance & actions to take, Instruct & monitor on saf, Assess intial functional capacity & safety risk, Other See below - 30-day Reassessments 30 day Reassessments:: Progressing Nutrition - Initial Assessment Nutrition - 30-Day Assessment Nutrition - 60-Day Assessment Nutrition - 90-Day Assessment - Program Goals Nutrition Program Goals: LDL <100 optimal. 100 - 129 Near optimal. 130 - 159 Borderline High. 160 - 189 High. Total Cholesterol <200 desirable. 200 - 239 Borderline High. >/= 240 High. HDL < 40 Low >/=60 High. Triglycerides <150 desirable. <199 optimal. VlDL 5 - 40. HgbA1C <7%. BMI <25 Patient has diagnosis of Hyperlipidemia (ICD E78)?: Yes - Visit Date of Assessment:: 01/24/21 Session #:: 27 - Cholesterol/Lipids Determine presence & major risk factors that modify LDL goal: Hypertension or hypertensive medication, Low HDL cholesterol <40 mg/dL*, Family history of premature CHD in Male < 55 years: female <65 yearsFa, Age men > 45 years; women >/= 55 years Outcomes/Goals: Pt IDs own risk factors & lifestyle modifications by Session 10, Verbalizes symptoms of angina & response by session 3., Pt independently manages, Other Additional Outcomes/Goals: Intervention/Plan: Advocate for lipid panel cholesterol medication if applicable, Instruct on personal lipid levels & lipid goals/NCEP guidelines, Instruct on cholesterol, Other additional plan/int Referral to dietitian:: No - pt met 11/27/20 30-day Reassessments:: Progressing - Diabetes (Other Core Measures) Diabetes Type: Not Applicable - Weight Mgt (Other Care) Height: 5 ft 9 in Weight:: 100.698 kg BMI: 32.8 Diagnosis Overweight/Obesity BMI> 30% ICD-10 E66: Yes Outcomes/Goals: Pt sets, maintains & shows weight loss goal & trend during rehab, Other additional outcomes/goals Intervention/Plan: Instruct on ideal BMI & set weight loss goal w/patient, Assist pt to ID & incorporate diet changes for weight loss by S9, Refer to Structured Weight Loss program as appropriate, Encourage goal of using 250- 300dcal per session for weight loss, Other additional plan/interventions 30 day Reassessments:: Progressing - Healthy Eating Habits Will attend diet classes:: Yes Outcomes/Goals:: Consume diet rich in vegs,fruits,whole grain/high fiber,fish,lean meat, Limit sat/trans fats,cholesterol & added salts & sugars, Other additional outcome/goals: Intervention/Plan:: Assess current eating habits, Other Additional plan/interventions 30-day Reassessments:: Progressing - Education Gave educational materials for:: Signs & symptoms of hypoglycemia, Signs & symptoms of hyperglycemia, Relate diabetes to coronary artery disease, Healthy eating Nutrition - Final Assessment Medical - Initial Assessment Medical- 30-Day Assessment Medical- 60-Day Assessment Medical- 90-Day Assessment - Visit Date of Eval: 01/24/21 Session #:: 27 - Medication Compliance Preventative Medication(s):: Aspirin H/O mental health issues: depression, anxiety, or addiction?: No Doesn?t believe in the benefits of treatment?: No Believes medications are unnecessary or harmful?: No Has a concern about medication side effects?: No Expresses concern over the cost of medications?: No Outcomes/Goals: Verbalizes medications,desired effect & common side effects @ DC, Pt self-reports following medication regimen, Keeps card in wallet w/medications listed by DC, Other additional outcome/goals: Interventions/plans: Instruct on medication effects & side effects, Review medication list w/patient every two weeks, Instruct importance of taking meds as ordered & assist problem solving, Other additional 30-day Reassessments:: Progressing - Tobacco Use Tobacco Use: Non-smoker - Hypertension Hypertension Diagnosis:: Hypertension ICD-10 I10 Resting Blood Pressure:: 102/58 [place] [employer] Hypertension Guidelines: [place] [employer] Hypertension Guidelines. Normal BP Less than 120/80. Elevated BP 120/80. Hypertension Stage 1: BP 130-139/80-89. Hypertesnion Stage 2: BP 140 or higher/90 or higher. Hypertension Crisis: BP higher than 180/120 Peak Exercise Blood Pressure:: 170/90 Outcomes/Goals: Able to verbalize/achieve optimal blood pressure <130/80, Incorporates diet changes & exercise for blood pressure control by DC, Other additional outcomes/goals Interventions/plan: Instruct on optimal blood pressure, hypertension & medications, Instruct on effects of sodium, alcohol, stress, exercise &hypertension, Other additional plan/interventions 30 day Reassessments:: Progressing - Tobacco Cessation Referral Smoking Cessation Referral:: No Individual Education/Counseling:: No Education Schedule Given:: Yes Medical - Final Assessment Psychosocial - Initial Assess Psychosocial - 30-Day Assess Psychosocial - 60-Day Assess Psychosocial - 90-Day Assess - VIsit Date of Eval: 01/24/21 Session #:: 27 History of previous Mental disease:: No - Outcomes/Goals: See list Psychosocial Outcomes/Goals:: ID's personal stressors & 2 strategies to manage stress by discharge, Other Additional outcome/goals: - Intervention/Plan: See List Interventions/Plan:: Assess stressors,coping strategies & signs of derpression on admission, Instruct/assist pt to develop coping & personal stress Mgt strategies, Refer to Behavioral Health if appropriate, Refer to Physician if appropriate, Instruct patient to recognize signs & symptoms of depression, Instruct patient to recog, Other additional plan/intervention - 30-day Reassessments: 30 day Reassessments:: Progressing Psychosocial - Final Assessmen Patient Health Questionnaire 90-Day Re-eval Assessment 1. Little interest or pleasure in doing things: Not at all 2. Feeling down, depressed, or hopeless: Not at all 3. Trouble falling or staying asleep, or sleeping too much: Several days 4. Feeling tired or having little energy: Several days 5. Poor appetite or overeating: Not at all 6. Feeling bad about yourself -- or that you are a failure or have let yourself or your family down: Not at all 7. Trouble concentrating on things, such as reading the newspaper or watching television: Not at all 8. Moving or speaking so slowly that other people could have noticed. Or the opposite - being so fidgety or restless that you have been moving around a lot more than usual: Not at all 9. Thoughts that you would be better off , or of hurting yourself in some way: Not at all How difficult have these problems made it for you to do your work, take care of things at home, or get along with other people?: Not difficult at all Total Score: 2 Self-Efficacy 90-Day Re-eval Assessment We would like to know how confident you are in doing certain activities. Please select your confidence level for:: Select your confidence level for the following using the scale 1-10 where 1 is not at all confident and 10 is totally confident. Your score is the average of all 6 responses. Fatigue: How confident are you that you can keep the fatigue caused by your d isease from interfering with the things you want to do? Select Number: 8 Physical Discomfort or Pain: How confident are you that you can keep the phys ical discomfort or pain of your disease from interfering with the things you want to do? Select Number: 7 Emotional Distress: How confident are you that you can keep the emotional distress caused by your disease from interfering with the things you want to do? Select Number: 8 Other Symptoms or Health Problems: How confident are you that you can keep other symptoms or health problems from interfering with the things you want to do? Select Number: 8 Different Tasks and Activities: How confident are you that you can do the different tasks and activities needed to manage your health condition so as to reduce your need to see a doctor? Select Number: 9 Medication: How confident are you that you can do things other than just taking medication to reduce how much your illness affects your everyday life? Select Number: 10 Total Score:: 8 Nutrition Survey
[2021-01-24 07:18] VITALS: BP 102/58; BP 170/90; BMI 32.8
== END 2021-02-18 23:59 ==
LOC: CR 15:45
PROVIDERS: PCP Family Medicine; Referring Provider Internal Medicine Cardiovascular Disease; Visit Provider Internal Medicine Cardiovascular Disease
DX: I35.0 Nonrheumatic aortic (valve) stenosis (principal); Z95.2 Presence of prosthetic heart valve; Q23.1 Congenital insufficiency of aortic valve
CPT/HCPCS: 93798

== ENCOUNTER 2021-03-05 08:42 | Outpatient (RCR) | payer BC, SELFPAY ==
[2020-12-27 06:50] VITALS: BMI 32.5
[2021-01-19 00:12] VITALS: BMI 32.9
[2021-01-24 07:18] VITALS: BMI 32.8
== END 2021-03-20 23:59 ==
LOC: NS 08:42
PROVIDERS: PCP Family Medicine; Visit Provider Internal Medicine Cardiovascular Disease
DX: Z71.3 Dietary counseling and surveillance (principal); E66.9 Obesity, unspecified; Z68.32 Body mass index [BMI] 32.0-32.9, adult
CPT/HCPCS: 97803

== ENCOUNTER 2021-03-05 09:13 | Outpatient (RCR) | payer BC, SELFPAY ==
[2021-01-24 07:18] VITALS: BMI 32.8
[2021-02-18 20:09] VITALS: BMI 32.9
[2021-03-05 10:04] LABS: International Normalized Ratio 2.1; Prothrombin Time (Protime)PT. 22.6 SECONDS (11.7-14.9)
== END 2021-03-20 18:00 | disposition home or self-care (01) ==
LOC: LAB 09:13
PROVIDERS: PCP Family Medicine; Referring Provider Internal Medicine Cardiovascular Disease; Visit Provider Internal Medicine Cardiovascular Disease
DX: Z95.2 Presence of prosthetic heart valve (principal); Z79.01 Long term (current) use of anticoagulants
CPT/HCPCS: 36415; 85610

== ENCOUNTER → 2021-04-02 08:01 | Outpatient (CLI) | payer BC, SELFPAY ==
[2021-01-24 07:18] VITALS: BMI 32.8
--- NOTE | 2021-04-02 08:03 | CT_ITS ---
STUDY: CT CHEST WITHOUT CONTRAST REASON FOR EXAM: Male, 55 years old. APICAL LUNG NODULE RADIATION DOSAGE (If Supplied By Facility): CTDIvol = ( 17.36 ) mGy, DLP = ( 715.97 ) mGycm TECHNIQUE: Transaxial imaging was performed without the administration of intravenous contrast material. Multiplanar coronal and sagittal images were reformatted. Individualized dose optimization techniques were used for this CT. COMPARISON: Comparison is made with prior study dated 06/06/2020. FINDINGS: Small benign-appearing bilateral axillary lymph nodes. The previously seen bilateral pulmonary infiltrates have cleared. There is no demonstrated pleural abnormality. Sternal cerclage wires are present from a prior sternotomy. Prior aortic valve replacement. Coronary artery calcification. There are multiple small lymph nodes within the mediastinum, which are normal in size and morphology most compatible with reactive lymph hyperplasia. Normal hilar regions. Normal unenhanced pulmonary arteries. Normal aorta arch and descending thoracic aorta. There are multi-level degenerative changes of the thoracic spine. The patient is status post cholecystectomy. CT/Chest without Contrast IMPRESSION: The lungs are now clear. No acute abnormality is seen. Electronically Signed: Stan Gonsalez MD at 9:39 EST , Service support ,
== END ==
PROVIDERS: PCP Family Medicine; Referring Provider Family Medicine; Visit Provider Family Medicine
DX: R91.1 Solitary pulmonary nodule (principal)
CPT/HCPCS: 71250

== ENCOUNTER 2021-04-06 10:26 | Outpatient (RCR) | payer BC, SELFPAY ==
[2021-01-24 07:18] VITALS: BMI 32.8
[2021-03-21 03:27] VITALS: BMI 32.9
== END 2021-04-21 18:00 | disposition home or self-care (01) ==
LOC: LAB 10:26
PROVIDERS: PCP Family Medicine; Referring Provider Internal Medicine Cardiovascular Disease; Visit Provider Internal Medicine Cardiovascular Disease
DX: Z95.2 Presence of prosthetic heart valve (principal); Z79.01 Long term (current) use of anticoagulants
CPT/HCPCS: 36415; 85610

== ENCOUNTER 2021-05-01 11:35 | Outpatient (RCR) | payer BC, SELFPAY ==
[2021-01-24 07:18] VITALS: BMI 32.8
[2021-04-22 04:29] VITALS: BMI 32.9
[2021-04-27 12:37] LABS: International Normalized Ratio 4.7; Prothrombin Time (Protime)PT. 43.1 SECONDS (11.7-14.9)
[2021-05-01 12:56] LABS: International Normalized Ratio 2.3; Prothrombin Time (Protime)PT. 24.1 SECONDS (11.7-14.9)
== END 2021-05-21 18:00 | disposition home or self-care (01) ==
LOC: LAB 11:35
PROVIDERS: PCP Family Medicine; Referring Provider Internal Medicine Cardiovascular Disease; Visit Provider Internal Medicine Cardiovascular Disease
DX: Z79.01 Long term (current) use of anticoagulants (principal); Z95.2 Presence of prosthetic heart valve
CPT/HCPCS: 36415; 85610

== ENCOUNTER 2021-05-16 09:00 | Outpatient (RCR) | payer BC, SELFPAY ==
[2021-01-24 07:18] VITALS: BMI 32.8
[2021-03-21 00:07] VITALS: BMI 32.9
== END 2021-05-21 23:59 ==
LOC: NS 09:00
PROVIDERS: PCP Family Medicine; Visit Provider Internal Medicine Cardiovascular Disease
DX: Z71.3 Dietary counseling and surveillance (principal); E66.9 Obesity, unspecified
CPT/HCPCS: 97803

== ENCOUNTER 2021-05-31 09:48 | Outpatient (RCR) | payer BC, SELFPAY ==
[2021-01-24 07:18] VITALS: BMI 32.8
[2021-05-22 01:18] VITALS: BMI 32.9
[2021-05-31 10:40] LABS: International Normalized Ratio 1.9; Prothrombin Time (Protime)PT. 20.8 SECONDS (11.7-14.9)
== END 2021-05-31 23:59 | disposition home or self-care (01) ==
LOC: LAB 09:48
PROVIDERS: PCP Family Medicine; Referring Provider Internal Medicine Cardiovascular Disease; Visit Provider Internal Medicine Cardiovascular Disease
DX: I10 Essential (primary) hypertension (principal); E78.00 Pure hypercholesterolemia, unspecified; Z95.2 Presence of prosthetic heart valve
CPT/HCPCS: 36415; 85610

== ENCOUNTER 2021-06-13 08:34 | Outpatient (RCR) | payer BC, SELFPAY ==
[2021-01-24 07:18] VITALS: BMI 32.8
[2021-05-22 00:05] VITALS: BMI 32.9
== END 2021-06-18 23:59 ==
LOC: NS 08:34
PROVIDERS: PCP Family Medicine; Referring Provider Internal Medicine Cardiovascular Disease; Visit Provider Internal Medicine Cardiovascular Disease
DX: Z71.3 Dietary counseling and surveillance (principal); E66.9 Obesity, unspecified; Z68.33 Body mass index [BMI] 33.0-33.9, adult
CPT/HCPCS: 97803

== ENCOUNTER 2021-07-26 09:57 | Outpatient (CLI) | payer BC, SELFPAY ==
[2021-01-24 07:18] VITALS: BMI 32.8
[2021-07-26 12:04] LABS: Absolute Lymphocyte Count 1.64 X10^3/uL (0.83-4.51); Basophil# 0.05 X10^3/uL; Basophil% 0.9 % (0-1); Eosinophils% 5.4 % (0-5); Hematocrit 45.7 % (40-54); Hemoglobin 14.8 g/dL (13.0-16.5); Lymphocyte # 1.64 X10^3/ul (0.83-4.51); Lymphocyte % 29.6 % (19-41); Mean Corp Hgb Conc 32.4 g/dL (32-36); Mean Corpuscular Hgb 29.8 pg (27.0-32.0); Monocyte# 0.52 X10^3/uL; Monocyte% 9.4 % (0-10); NRBC Flagged by Analyzer 0 % (0-5); Neutrophil # 3.01 X10^3/uL (2.7-7.7); Neutrophil % 54.3 % (47-70); Platelet Count 279 K/mm3 (150-450); RBC Distribution Width CV 13.4 % (11.6-14.6); RBC Distribution Width SD 45.3 fl (35.1-43.9); Red Blood Count 4.97 M/mm3 (4.6-6.2); White Blood Count 5.5 K/mm3 (4.4-11.0)
[2021-07-26 12:26] LABS: ALB/GLOB Ratio 1.1 RATIO (0.9-2.4); AST(SGOT) 21 U/L (15-37); Alanine Aminotransfer ALT/SGPT 23 U/L (16-61); Albumin, Serum 3.5 g/dL (3.2-5.0); Alkaline Phosphatase 77 U/L (45-117); Anion Gap 4 (5-15); BUN 13 mg/dL (7-18); Calcium,Total 8.8 mg/dL (8.5-10.1); Chloride 107 mmol/L (98-107); Cholesterol 194 mg/dL (200); Creatinine, Serum 1.18 mg/dL (0.70-1.30); EST Glomerular Filtration Rate 68 mL/min (>60); Est Glom Filt Rate - Afr Amer 82 mL/min (>60); Globulin 3.3 g/dL (2.2-4.2); Glucose 111 mg/dL (74-106); High Density Lipoprotein 48 mg/dL; PSA,Total- Diagnostic 7.24 ng/mL (0.0-4.0); Potassium 4.3 mmol/L (3.5-5.1); Protein, Total 6.8 g/dL (6.4-8.2); Sodium Level 137 mmol/L (136-145); Triglycerides 209 mg/dL; Very Low Density Lipoprotein 42 mg/dL (5-40)
[2021-07-26 13:13] LABS: Hepatitis C Antibody Non-Reactive (Nonreactive)
== END 2021-07-26 23:59 | disposition home or self-care (01) ==
LOC: MFPLAB 09:59
PROVIDERS: PCP Family Medicine; Referring Provider Family Medicine; Visit Provider Family Medicine
DX: Z00.00 Encounter for general adult medical examination without abnormal findings (principal); Z11.59 Encounter for screening for other viral diseases; R97.20 Elevated prostate specific antigen [PSA]; Z95.2 Presence of prosthetic heart valve
CPT/HCPCS: 36415; 80053; 80061; 84153; 85025; 86803

== ENCOUNTER → 2021-11-01 | Outpatient (CLI) | payer BC, SELFPAY ==
[2021-01-24 07:18] VITALS: BMI 32.8
[2021-11-01 11:51] LABS: PSA,Total- Diagnostic 4.15 ng/mL (0.0-4.0)
== END | disposition home or self-care (01) ==
LOC: LAB 09:56
PROVIDERS: PCP Family Medicine; Referring Provider Urology; Visit Provider Urology
DX: N40.1 Benign prostatic hyperplasia with lower urinary tract symptoms (principal)
CPT/HCPCS: 36415; 84153

== ENCOUNTER → 2022-01-22 | Outpatient (CLI) | payer BC, SELFPAY ==
[2021-01-24 07:18] VITALS: BMI 32.8
[2022-01-22 12:21] LABS: ALB/GLOB Ratio 1.1 RATIO (0.9-2.4); AST(SGOT) 22 U/L (15-37); Alanine Aminotransfer ALT/SGPT 29 U/L (16-61); Albumin, Serum 3.6 g/dL (3.2-5.0); Alkaline Phosphatase 72 U/L (45-117); Anion Gap 6 (5-15); BUN 11 mg/dL (7-18); BUN/Creat Ratio 8.5 RATIO (10-20); Calcium,Total 8.8 mg/dL (8.5-10.1); Chloride 109 mmol/L (98-107); EST Glomerular Filtration Rate 61 mL/min (>60); Est Glom Filt Rate - Afr Amer 73 mL/min (>60); Globulin 3.3 g/dL (2.2-4.2); Glucose 102 mg/dL (74-106); Magnesium 2.4 mg/dL (1.6-2.6); Potassium 4.1 mmol/L (3.5-5.1); Protein, Total 6.9 g/dL (6.4-8.2); Sodium Level 140 mmol/L (136-145)
== END | disposition home or self-care (01) ==
LOC: MFPLAB 09:33
PROVIDERS: PCP Family Medicine; Visit Provider Family Medicine
DX: I49.3 Ventricular premature depolarization (principal)
CPT/HCPCS: 36415; 80053; 83735

== ENCOUNTER → 2022-05-10 | Outpatient (CLI) | payer BC, SELFPAY ==
[2021-01-24 07:18] VITALS: BMI 32.8
[2022-05-10 09:55] LABS: PSA,Total- Diagnostic 4.98 ng/mL (0.0-4.0)
== END | disposition home or self-care (01) ==
LOC: LAB.FUTURE 08:53 → LAB 08:54
PROVIDERS: PCP Family Medicine; Referring Provider Urology; Visit Provider Urology
DX: N40.1 Benign prostatic hyperplasia with lower urinary tract symptoms (principal)
CPT/HCPCS: 36415; 84153

== ENCOUNTER → 2022-11-08 | Outpatient (CLI) | payer BC, SELFPAY ==
[2021-01-24 07:18] VITALS: BMI 32.8
[2022-11-08 11:58] LABS: PSA,Total- Diagnostic 5.96 ng/mL (0.0-4.0)
== END | disposition home or self-care (01) ==
LOC: LAB 10:14
PROVIDERS: PCP Family Medicine; Referring Provider Urology; Visit Provider Urology
DX: R97.20 Elevated prostate specific antigen [PSA] (principal)
CPT/HCPCS: 36415; 84153

== ENCOUNTER 2022-11-10 13:59 | Emergency (ER) | payer BC, SELFPAY ==
[2021-01-24 07:18] VITALS: BMI 32.8
[2022-11-10 14:02] VITALS: BP 136/95; PULSE 97; RESP 18; TEMP 36.6; O2SAT 100; BMI 30.9
--- NOTE | 2022-11-10 14:52 | ED.VIS.LOWEX ---
HPI History of Present Illness Chief Complaint: Lower Extremity Injury Narrative Narrative: 57-year-old male presenting with right foot pain. He states that he dropped his corn hole board on it yesterday. He has been ambulatory but walking on his right heel. He noticed some bruising and swelling today. No numbness or tingling. No lacerations or abrasions. [facility] Medical History Acute pharyngitis, unspecified Anxiety Aortic root dilatation Back pain Bicuspid aortic valve Cardiac murmur Contact with and (suspected) exposure to other viral communicable diseases Esophageal stricture Essential hypertension Fatigue GERD (gastroesophageal reflux disease) senior living (current) use of anticoagulants Palpitations Ventricular ectopy Home Medications bupropion HCl 150 mg tablet,12 hr sustained-release 150 mg PO BID 02/06/15 [History Last Taken 03/14/18] cetirizine 10 mg capsule 10 mg PO DAILY 02/06/15 [History Last Taken 03/14/18] aspirin 81 mg tablet,delayed release 81 mg PO DAILY 05/17/16 [History Last Taken 03/14/18] acetaminophen 325 mg tablet 650 mg PO Q4H PRN 10/10/20 [History Last Taken Unknown] pantoprazole 40 mg tablet,delayed release 40 mg PO DAILY 10/10/20 [History Last Taken Unknown] sennosides 8.6 mg-docusate sodium 50 mg tablet (Senna-S) 1 tab-cap PO BID PRN constipation 10/10/20 [History Last Taken Unknown] melatonin 5 mg tablet 5 mg PO HS 11/01/20 [History Last Taken Unknown] metoprolol succinate 100 mg tablet,extended release 24 hr 100 mg PO BID 01/30/21 [History Last Taken Unknown] warfarin 5 mg tablet See Rx Instructions PO DAILY #135 tabs 11/05/21 [Rx Last Taken Unknown] Allergy/AdvReac Type Severity Reaction Status Date / Time Penicillins Allergy Unknown Verified 11/10/22 14:01 surgical tape Allergy Intermediate Swelling Uncoded 11/10/22 14:01 Family History Father Hypertension Alzheimer disease Mother Breast cancer Surgical History History of carpal tunnel release History of cholecystectomy (~2007) History of colonoscopy (~2015) History of esophageal dilatation (~09/2018) History of esophagogastroduodenoscopy (EGD) History of fusion of cervical spine History of mechanical aortic valve replacement (~09/12/20) History of vasectomy Social History Smoking Status: Former smoker Smokeless tobacco user: snuff alcohol intake: current details: occasional substance use type: does not use caffeine: Yes Type: coffee Number of servings: 2 ROS ROS ED Constitutional Constitutional ED: Denies chills, fever(s) or sweats Eyes Eyes: Denies blurry vision or change in vision ENT ENT ED: Denies ear pain or sore throat Cardiovascular Cardiovascular: Denies chest pain, palpitations or racing heartbeat Respiratory/Chest Respiratory/Chest: Denies cough, dyspnea or sputum Gastrointestinal Gastrointestinal: Denies abdominal pain, constipation, diarrhea, nausea or vomiting Genitourinary Genitourinary ED: Denies dysuria, hematuria or urinary frequency Musculoskeletal Musculoskeletal: Denies arthralgias, myalgias or neck pain Integumentary Reports other Details: Bruising and swelling of right foot ; Denies abscess or rash Neurologic Neurologic: Denies headache(s), paresthesias or weakness Psychiatric Psychiatric: Denies anxiety, depression, suicidal ideation or suicidal thoughts Endocrine Endocrinology: Denies polydipsia or polyuria EXAM Physical Exam Const Vital Signs: 11/10/22 14:02 Temperature 97.8 F Temperature Source Temporal Pulse Rate 97 Respiratory Rate 18 Blood Pressure 136/95 H Blood Pressure Mean 108 Pulse Ox 100 Oxygen Delivery Method Room Air Positive well nourished General Appearance ED: NAD HEENT normocephalic Resp normal respiratory effort and no retractions Cardio regular rate and regular rhythm Extremity Extremity Narrative: Tenderness to palpation dorsum of the right foot with noted edema, bruising on the lateral aspect diffusely. Neurovascular intact brisk cap refill to all 5 toes. There is pain at the base of the fifth metatarsal. No navicular pain. Neuro oriented x3 and CN's II-XII intact bilaterally Sensorium / Orientation: alert Motor Exam: strength 5/5 throughout Skin Skin Narrative: As described above MDM MDM MDM Narrative Medical decision making narrative: Presenting for evaluation of foot pain after dropping a board on his foot. Differential includes contusion, fracture. Patient declines analgesia. Will obtain a right foot x-ray. X-ray of the right foot on my interpretation shows no acute fracture or subluxation. The radiologist interprets this and agrees. Offered patient Tj wrap and crutches however he just wants the Tj wrap. I counseled him to ice and elevate. Return precautions were discussed. Impression: 1. Right foot contusion Lab Data Attestation: I reviewed the patient's lab results. Radiography Diagnostic Testing: Clinical Impression(s) from Imaging Studies Foot X-Ray 11/10/22 14:58 IMPRESSION: Soft tissue swelling of the dorsum of the foot. Electronically Signed: Jovi Her MD at 15:08 EDT Reading Location ID and State: [facility] / [place] , Service support , Discharge Plan Triage Chief Complaint: Lower Extremity Injury ED Provider: Lavon Salgado Dx/Rx/DC Orders Instructions: ED Foot Contusion Prescriptions: No Action acetaminophen 325 mg tablet 650 mg PO Q4H PRN sennosides-docusate sodium [Senna-S] 8.6-50 mg tablet 1 tab-cap PO BID PRN (Reason: constipation) pantoprazole 40 mg tablet,delayed release (DR/EC) 40 mg PO DAILY melatonin 5 mg tablet 5 mg PO HS metoprolol succinate 100 mg tablet extended release 24 hr 100 mg PO BID bupropion HCl 150 MG tablet sustained-release 12 hr 150 mg PO BID Patient Comments: MILD DEPRESSION cetirizine 10 MG capsule 10 mg PO DAILY Patient Comments: ALLERGIES aspirin 81 MG tablet,delayed release (DR/EC) 81 mg PO DAILY Patient Comments: WAS TOLD TO ASK ABOUT STOPPING warfarin 5 mg tablet See Rx Instructions PO DAILY Qty: 135 3RF Protocol: Dose Management Condition: Friday Dose/Route: 7.5 mg Instruction: 1.5 x 5 mg tablets Condition: Friday Dose/Route: 7.5 mg Instruction: 1.5 x 5 mg tablets Condition: Friday Dose/Route: 7.5 mg Instruction: 1.5 x 5 mg tablets Condition: Friday Dose/Route: 7.5 mg Instruction: 1.5 x 5 mg tablets Condition: Dose/Route: 7.5 mg Instruction: 1.5 x 5 mg tablets Condition: Friday Dose/Route: 7.5 mg Instruction: 1.5 x 5 mg tablets Condition: Friday Dose/Route: 7.5 mg Instruction: 1.5 x 5 mg tablets Protocol Text: Adjustment Start Date: 05/31/21 INR Value: 1.9 INR Date: 05/31/21 Recheck Date: 06/28/21 Rx Instructions: 7.5 mg a day Primary Care Provider: Robbin Vanegas Referrals: Robbin Vanegas MD [Primary Care Provider] - Disposition Disposition: Home, Self Care
--- NOTE | 2022-11-10 14:58 | RAD_ITS ---
EXAM: XR RIGHT FOOT COMPLETE, 3 OR MORE VIEWS CLINICAL INDICATION: pain TECHNIQUE: Frontal, lateral and oblique views of the right foot. COMPARISON: No relevant prior studies available. FINDINGS: BONES/JOINTS: There is a calcaneal spur. There is an enthesophyte involving the posterior superior calcaneus at the site of insertion of the Achilles tendon. No acute fracture. No subluxation. Normal alignment. Preservation of the joint space. No sclerotic or destructive changes observed. SOFT TISSUES: Soft tissue swelling of the dorsum of the foot. No radiopaque foreign body. RAD/Foot min 3 Views IMPRESSION: Soft tissue swelling of the dorsum of the foot. Electronically Signed: Jovi Her MD at 15:08 EDT ,
== END 2022-11-10 15:33 | disposition home or self-care (01) ==
PROVIDERS: Emergency Provider Student in an Organized Health Care Education/Training Program; PCP Family Medicine; Visit Provider Student in an Organized Health Care Education/Training Program
DX: S90.31XA Contusion of right foot, initial encounter (principal); Z87.891 Personal history of nicotine dependence; X58.XXXA Exposure to other specified factors, initial encounter
CPT/HCPCS: 73630; 99282

== ENCOUNTER → 2023-03-03 | Outpatient (CLI) | payer BC, SELFPAY ==
[2021-01-24 07:18] VITALS: BMI 32.8
[2023-03-03 12:21] LABS: Absolute Lymphocyte Count 1.55 X10^3/uL (0.83-4.51); Absolute Neutrophil Count 3.5 X10^3/uL (2.0-7.7); Basophil# 0.05 X10^3/uL; Basophil% 0.8 % (0-1); Eosinophil# 0.61 X10^3/uL; Eosinophils% 9.8 % (0-5); Hematocrit 46.4 % (40-54); Hemoglobin 15.5 g/dL (13.0-16.5); Lymphocyte # 1.55 X10^3/ul (0.83-4.51); Lymphocyte % 24.9 % (19-41); Mean Corp Hgb Conc 33.4 g/dL (32-36); Mean Corpuscular Hgb 30.3 pg (27.0-32.0); Mean Corpuscular Volume 90.8 fL (80-94); Mean Platelet Vol. 9.4 fl (6.2-12.0); Monocyte# 0.47 X10^3/uL; Monocyte% 7.5 % (0-10); NRBC Flagged by Analyzer 0 % (0-5); Neutrophil # 3.53 X10^3/uL (2.7-7.7); Neutrophil % 56.7 % (47-70); Platelet Count 189 K/mm3 (150-450); RBC Distribution Width CV 12.7 % (11.6-14.6); RBC Distribution Width SD 42.4 fl (35.1-43.9); Red Blood Count 5.11 M/mm3 (4.6-6.2); White Blood Count 6.2 K/mm3 (4.4-11.0)
[2023-03-03 13:07] LABS: ALB/GLOB Ratio 1.2 RATIO (0.9-2.4); AST(SGOT) 28 U/L (15-37); Alanine Aminotransfer ALT/SGPT 37 U/L (16-61); Albumin, Serum 3.6 g/dL (3.2-5.0); Alkaline Phosphatase 71 U/L (45-117); Anion Gap 5 (5-15); BUN 10 mg/dL (7-18); Calcium,Total 8.8 mg/dL (8.5-10.1); Chloride 110 mmol/L (98-107); Creatinine, Serum 1.11 mg/dL (0.70-1.30); EST Glomerular Filtration Rate 72 mL/min (>60); Est Glom Filt Rate - Afr Amer 88 mL/min (>60); Glucose 93 mg/dL (74-106); Potassium 4.1 mmol/L (3.5-5.1); Protein, Total 6.6 g/dL (6.4-8.2); Sodium Level 141 mmol/L (136-145)
[2023-03-03 13:26] LABS: Microalbumin,Random Urine 13.3 mg/L (NO RANGE EST.)
== END | disposition home or self-care (01) ==
LOC: MFPLAB 11:25
PROVIDERS: PCP Family Medicine; Visit Provider Family Medicine
DX: R97.20 Elevated prostate specific antigen [PSA] (principal); I10 Essential (primary) hypertension
CPT/HCPCS: 36415; 80053; 82043; 82570; 85025

== ENCOUNTER → 2023-10-27 | Outpatient (CLI) | payer BC, SELFPAY ==
[2021-01-24 07:18] VITALS: BMI 32.8
[2023-10-27 11:42] LABS: PSA,Total- Diagnostic 6.28 ng/mL (0.0-4.0)
== END | disposition home or self-care (01) ==
PROVIDERS: PCP Family Medicine; Referring Provider Nurse Practitioner; Visit Provider Nurse Practitioner
DX: R97.20 Elevated prostate specific antigen [PSA] (principal)
CPT/HCPCS: 36415; 84153

== ENCOUNTER → 2024-05-14 | Outpatient (CLI) | payer BC, SELFPAY ==
[2021-01-24 07:18] VITALS: BMI 32.8
[2024-05-14 11:04] LABS: Absolute Lymphocyte Count 2.15 X10^3/uL (0.83-4.51); Absolute Neutrophil Count 3.8 X10^3/uL (2.0-7.7); Basophil# 0.04 X10^3/uL; Basophil% 0.6 % (0-1); Eosinophil# 0.46 X10^3/uL; Eosinophils% 6.6 % (0-5); Hematocrit 42.3 % (40-54); Hemoglobin 14.3 g/dL (13.0-16.5); Lymphocyte # 2.15 X10^3/ul (0.83-4.51); Lymphocyte % 30.9 % (19-41); Mean Corp Hgb Conc 33.8 g/dL (32-36); Mean Corpuscular Hgb 29.5 pg (27.0-32.0); Mean Corpuscular Volume 87.4 fL (80-94); Mean Platelet Vol. 8.9 fl (6.2-12.0); Monocyte# 0.47 X10^3/uL; Monocyte% 6.8 % (0-10); NRBC Flagged by Analyzer 0 % (0-5); Neutrophil # 3.82 X10^3/uL (2.7-7.7); Neutrophil % 54.8 % (47-70); Platelet Count 190 K/mm3 (150-450); RBC Distribution Width CV 13.1 % (11.6-14.6); RBC Distribution Width SD 41.6 fl (35.1-43.9); Red Blood Count 4.84 M/mm3 (4.6-6.2)
[2024-05-14 11:43] LABS: Microalbumin,Random Urine 10.4 mg/L (NO RANGE EST.); Microalbumin:Creatinine Ratio 4.5 mg/g CRE (<30 mg/g CRE)
[2024-05-14 12:14] LABS: ALB/GLOB Ratio 1.1 RATIO (0.9-2.4); AST(SGOT) 21 U/L (15-37); Alanine Aminotransfer ALT/SGPT 27 U/L (16-61); Albumin, Serum 3.5 g/dL (3.2-5.0); Alkaline Phosphatase 72 U/L (45-117); Anion Gap 3 (5-15); BUN 11 mg/dL (7-18); BUN/Creat Ratio 9.2 RATIO (10-20); Calcium,Total 8.7 mg/dL (8.5-10.1); Chloride 107 mmol/L (98-107); Cholesterol 188 mg/dL (200); Creatinine, Serum 1.19 mg/dL (0.70-1.30); EST Glomerular Filtration Rate 67 mL/min (>60); Est Glom Filt Rate - Afr Amer 81 mL/min (>60); Globulin 3.2 g/dL (2.2-4.2); Glucose 118 mg/dL (74-106); High Density Lipoprotein 56 mg/dL; PSA,Total - Annual Screen 6.04 ng/mL (0.00-4.00); Potassium 4.1 mmol/L (3.5-5.1); Protein, Total 6.7 g/dL (6.4-8.2); Sodium Level 138 mmol/L (136-145); Triglycerides 137 mg/dL; Very Low Density Lipoprotein 27 mg/dL (5-40)
[2024-05-18 11:08] LABS: Testosterone, % Free 3.06 % (1.50-4.20); Testosterone, Free 24.51 ng/dL (5.00-21.00); Testosterone, Total 801 ng/dL (264-916)
== END | disposition home or self-care (01) ==
PROVIDERS: PCP Family Medicine; Referring Provider Nurse Practitioner; Visit Provider Nurse Practitioner
DX: R97.20 Elevated prostate specific antigen [PSA] (principal); I10 Essential (primary) hypertension; E78.00 Pure hypercholesterolemia, unspecified; K20.0 Eosinophilic esophagitis; R68.82 Decreased libido
CPT/HCPCS: 36415; 80053; 80061; 82043; 82570; 84153; 84402; 84403; 84443; 85025; G0103

== ENCOUNTER → 2024-11-11 | Outpatient (CLI) | payer BC, SELFPAY ==
[2021-01-24 07:18] VITALS: BMI 32.8
--- NOTE | 2024-11-11 13:04 | RAD_ITS ---
PROCEDURE: HIP, UNI W/ PELVIS 2-3 VIEWS 11/11/2024 REASON FOR EXAM: LEFT HIP PAIN, LEFT HIP TECHNIQUE: HIP, UNI W/ PELVIS 2-3 VIEWS COMPARISON: No FINDINGS: Prior prostate surgery. Intact pelvic ring. Mild left hip osteoarthritis. No acute bone or soft tissue pathology. RAD/HIP, UNI W/ Pelvis 2-3 Views IMPRESSION: Mild left hip osteoarthritis. Reading [facility]
[2024-11-11 14:18] LABS: PSA,Total- Diagnostic 4.64 ng/mL (0.00-4.00)
== END | disposition home or self-care (01) ==
PROVIDERS: PCP Family Medicine; Referring Provider Urology; Visit Provider Urology
DX: M25.552 Pain in left hip (principal); R97.20 Elevated prostate specific antigen [PSA]
CPT/HCPCS: 36415; 73502; 84153

== ENCOUNTER → 2025-03-08 | Outpatient (CLI) | payer BC, SELFPAY ==
[2021-01-24 07:18] VITALS: BMI 32.8
[2025-03-08 17:13] LABS: Hematocrit 42.7 % (40-54); Hemoglobin 14.2 g/dL (13.0-16.5); Immature Granulocytes Count 0.020 X10^3/uL (0.0-0.0); Mean Corp Hgb Conc 33.3 g/dL (32-36); Mean Corpuscular Volume 92.2 fL (80-94); Mean Platelet Vol. 9.5 fl (6.2-12.0); NRBC Flagged by Analyzer 0 % (0-5); Platelet Count 218 K/mm3 (150-450); RBC Distribution Width CV 12.6 % (11.6-14.6); RBC Distribution Width SD 42.4 fl (35.1-43.9); Red Blood Count 4.63 M/mm3 (4.6-6.2); White Blood Count 9.4 K/mm3 (4.4-11.0)
[2025-03-08 17:57] LABS: AST(SGOT) 38 U/L (<=37); Alanine Aminotransfer ALT/SGPT 35 U/L (<=46); Albumin, Serum 4.0 g/dL (3.5-5.0); Alkaline Phosphatase 83 U/L (40-129); Anion Gap 10 (5-15); BUN 12 mg/dL (4-19); BUN/Creat Ratio 12.2 RATIO (10-20); Calcium,Total 8.9 mg/dL (7.6-11.0); Carbon Dioxide 24.4 mmol/L (21.0-32.0); Chloride 106 mmol/L (98-108); Globulin 2.7 g/dL (2.2-4.2); Glucose 99 mg/dL (70-99); Potassium 4.2 mmol/L (3.3-5.1)
--- OUTSIDE RECORDS SUMMARY | 2025-03-08 19:35 | XMS RPT_ITS | CCD ---
Author Organization [facility] Care Team Providers Care Leadership Coach Name Role Phone Guilherme BERRY, Gilbert Drake Primary Care Provider Alba BERRY, Juan Unavailable 13, Pharmacist Unavailable MD Gilbert Vanegas Primary Care Provider Unavailabl luz Vanegas MD Gilbert Referring Provider Unavailable DEUCE Arguelles Attending Provider [phone] Guilherme BERRY, Gilbert Drake Primary Care Provider Alba BERRY, Juan Unavailable 13, Pharmacist Unavailable Gilbert Vanegas MD Primary Care Provider 13, Pharmacist Unavailable Guilherme BERRY, Gilbert Drake Primary Care Provider Alba BERRY, Juan Unavailable 13, Pharmacist Unavailable Gilbert Vanegas MD A Primary Care Provider Alba BERRY, Juan Unavailable MD Gilbert Madsen Primary Care Provider Unavail able Guilherme SCOTT MD Gilbert Referring Provider UnavailDonnell TRIPATHI PA Arsenio Myles Attending Provider Alba BERRY, Juan Unavailable Gilbert Vanegas MD A Primary Care Provider Dr. Gilbert Vanegas MD Primary Care Provider Guilherme BERRY, Dr. Siegel Other Provider [phone] Corby BERRY, Dr. Marcus Cuellar Attending Provider [phone] Dr. Marcus Tavarez MD Referring Provider [phone] Vanegas, Gilbert Consulting Unavailable Marcus Tavarez Attending Unavailable Marcus Tavarez Referring Unavailable Vanegas, Gilbert Primary Care Unavailable Tarzan, Lyndsey Attending Unavailable TarzanLyndsey Referring Unavailable Vanegas, Gilbert Primary Care Unavailable Mary LUNA Attending Unavailable KALEB EDUARDO Referring Unavailable VANEGAS, GILBERT A Primary Care Unavailable Mary LUNA Referring Unavailable VANEGAS, GILBERT A Primary Care Unavailable LUNA S LORA Referring Unavailable VANEGAS, GILBERT A Primary Care Unavailable VANEGAS, GILBERT A Primary Care Unavailable DAPHNEY WHEATLEY Attending Unavailable VANEGAS, GILBERT A Primary Care Unavailable SERENA HERRERA Attending Unavailable KALEB EDUARDO Referring Unavailable VANEGAS, GILBERT A Primary Care Unavailable KALEB EDUARDO Referring Unavailable VANEGAS, GILBERT A Primary Care Unavailable Allergies Allergy Classification Reported Allergen(s) Allergy Type Date of Onset Reaction(s) Facility Penicillins (antibiotic) (1 source) Penicillins Drug Allergy 8 Unknown [facility] (18 sources) Penicillins; Translations: [PENICILLINS] Propensity to adverse reactions to drug 8 Unknown [facility] (20 sources) Silver; Translations: [SILVER] Drug Allergy 1 Rash, Swelling [facility] (20 sources) Penicillins Propensity to adverse reactions to drug 8 Unknown [facility] (20 sources) Silver Drug Allergy 1 Rash, Swelling [facility] (5 sources) Penicillins Allergy to substance 2 Unknown [facility] (1 source) Surgical adhesive tape Allergy to substance 3 [facility] (3 sources) Environmental Allergies: Uncoded; Translations: [Environmental Allergies: Uncoded] Allergy to substance 3 [facility] Comment on above: Surgical Tape (16 sources) Penicillins Propensity to adverse reactions to drug 8 Unknown [facility] (1 source) Penicillins Drug allergy (disorder) 3 [facility] Repository Medications Current Medications Medication Drug Class(es) Dates Sig (Normalized) Sig (Original) acetaminophen 325 mg oral tablet (6 sources) Start: 10-10-2020 take 2 tablets by mouth every four hours as needed Acetaminophen 325 mg tablet Active 650 mg PO Q4H as needed October 10, 2020 12:00am History of mechanical aortic valve replacement Presence of prosthetic heart valve Start: 10-10-2020 take 650 mg by mouth every four hours Acetaminophen Active 650 MG PO Q4H October 09, 2020 11:00pm aspirin 81 mg chewable tablet (20 sources) Platelet Aggregation Inhibitor, Nonsteroidal Anti-inflammatory Drug Start: 09-17-2020 take 1 tablet by mouth once daily aspirin 81 mg chewable tablet 1 tablet by ORAL/FEEDING TUBE route once daily. 30 tablet 09/17/2020 Active Start: 09-17-2020 take 1 tablet by jaycob th once daily aspirin 81 mg chewable tablet 1 tablet by ORAL/FEEDING TUBE route once daily. 30 tablet 0 09/17/2020 Active Start: 05-17-2016 take 1 tablet by jaycob th once daily Aspirin 81 MG tablet,delayed release (DR/EC) Active 81 mg PO DAILY May 17, 2016 1:00am Comment on above: 1 tablet by ORAL/FEE DING TUBE route once daily. atorvastatin 20 mg oral tablet (8 sources) HMG-CoA Reductase Inhibitor Start: 10-20-19 25 take 1 tablet by mouth once daily atorvastatin (LIPITOR) 20 mg tablet Take 1 tablet by mouth once daily. 90 tablet 3 10/19/2024 Active 12 hr buPROPion hydrochloride 150 mg extended release oral tablet (20 sources) Aminoketone Start: 02-07-20 15 take 1 tablet by mouth twice daily Bupropion Hcl 150 MG tablet sustained-release 12 hr Active 150 mg PO TWICE A DAY February 06, 2015 12:00am take 1 tablet by mouth once memo y buPROPion SR (ZYBAN SR; WELLBUTRIN SR) 150 mg 12 hr tablet Take by mouth once daily. Active Comment on above: Take by mouth twice daily. cetirizine hydrochloride 10 mg oral capsule (6 sources) Histamine-1 Receptor Antagonist Start: 02-07-20 15 take 1 capsule by mouth once daily Cetirizine 10 MG capsule Active 10 mg PO DAILY February 06, 2015 12:00am 12 hr cetirizine hydrochloride 5 mg / pseudoephedrine hydrochloride 120 mg extended release oral tablet (20 sources) alpha-Adrenergic Agonist, Histamine-1 Receptor Antagonist Start: 10-22-19 08 p-ephed hcl/cetirizine hcl(ZYRTEC-D 5 MG-120 MG 12 HR TAB) Take one(1) tablet two(2) times daily. 0 10/22/2007 Active Comment on above: Take one(1) tablet t wo(2) times daily. docusate sodium 50 mg / sennosides, detention 8.6 mg oral tablet (6 sources) Start: 10-11-19 21 Sennosides-Docusate Sodium (Senna-S) 8.6-50 mg tablet Active 1 NMA PO TWICE A DAY as needed for constipation October 10, 2020 12:00am History of mechanical aortic valve replacement Presence of prosthetic heart valve losartan potassium 100 mg oral tablet (20 sources) Angiotensin 2 Receptor Jasmeet Start: 06-12-19 23 End: 06-26-19 26 take 1 tablet by mouth once daily losartan (COZAAR) 100 mg tablet Take 1 tablet by mouth once daily. 90 tablet 3 06/25/2024 06/25/2025 Active Start: 06-12-2021 End: 06-12-2022 take 1 tablet by mouth once daily losartan (COZAAR) 50 mg tablet Take 1 tablet by mouth once daily. 90 tablet 3 06/04/2022 06/12/2022 Discontinued (Dosage adjustment) Comment on above: Take 1 tablet by jaycob th once daily. melatonin 5 mg oral tablet (20 sources) Start: 10-10-2020 End: 08-01-2023 take 1 tablet by mouth at bedtime Melatonin 5 mg tablet Active 5 mg PO BEDTIME November 01, 2020 11:32am History of mechanical aortic valve replacement Presence of prosthetic heart valve Comment on above: Take 5 mg by mouth a t bedtime as needed. 24 hr metoprolol succinate 100 mg extended release oral tablet (20 sources) beta-Adrenergic Jasmeet Start: 07-05-2024 End: 10-03-2024 take 1 tablet by mouth once daily metoprolol succinate ER (TOPROL XL) 100 mg TAKE 1 TABLET BY MOUTH EVERY DAY 90 tablet 3 10/03/2024 Active Start: 06-07-2023 End: 06-06-2024 take 1 tablet by mouth once daily metoprolol succinate ER (TOPROL XL) 100 mg Take 1 tablet by mouth once daily. 90 tablet 3 06/07/2023 Active Start: 06-04-2022 End: 06-04-2023 take 1 tablet by mouth once daily metoprolol succinate ER (TOPROL XL) 100 mg Take 1 tablet by mouth once daily. 90 tablet 3 06/04/2022 06/04/2023 Active Start: 05-29-2021 End: 05-29-2022 take 1 tablet by mouth once daily metoprolol succinate ER (TOPROL XL) 100 mg Take 1 tablet by mouth once daily. 90 tablet 3 05/29/2021 05/29/2022 Active Start: 01-30-2021 take 1 tablet by jaycob th twice daily Metoprolol Succinate 100 mg tablet extended release 24 hr Active 100 mg PO TWICE A DAY January 30, 2021 9:48am History of mechanical aortic valve replacement Presence of prosthetic heart valve Start: 11-01-2020 End: 01-30-2021 take 1 tablet by mouth once daily Metoprolol Succinate 100 mg tablet extended release 24 hr Discontinued 100 mg PO DAILY November 01, 2020 11:32am January 30, 2021 9:49am History of mechanical aortic valve replacement Presence of prosthetic heart valve Start: 10-10-2020 End: 11-01-2020 take 1 tablet by mouth twice daily Metoprolol Succinate 100 mg tablet extended release 24 hr Discontinued 100 mg PO TWICE A DAY 60 12 October 16, 2020 12:23pm November 01, 2020 11:33am History of mechanical aortic valve replacement Presence of prosthetic heart valve Comment on above: Take 1 tablet by jaycob th once daily. MULTIVITAMIN ORAL (12 sources) MULTIVITAMIN ORA L Take by mouth. Active pantoprazole 40 mg delayed release oral tablet (20 sources) Proton Pump Inhibitor Start: pantoprazole DR (PROTONIX) 40 mg tablet Take 1 tablet by mouth as needed. 05/29/2021 Active Comment on above: Take 1 tablet by jaycob th as needed. 0.25 mg, 0.5 mg dose 1.5 ml semaglutide 1.34 mg/ml pen injector (3 sources) Start: 023 End: 023 semaglutide (OZEMPIC) 0.25 mg or 0.5 mg(2 mg/1.5 mL) pen Indications: Class 1 obesity due to excess calories with body mass index (BMI) of 34.0 to 34.9 in adult, unspecified whether serious comorbidity present , Essential hypertension , Hyperlipidemia, unspecified hyperlipidemia type Inject 0.25 mg subcutaneously one time a week. 3 mL 0 06/12/2022 06/21/2022 Discontinued Comment on above: Inject 0.25 mg subcu taneously one time a week. semaglutide, weight loss, (WEGOVY) 0.5 mg/0.5 mL pen injector (7 sources) Start: 023 End: 023 inject 0.5 mL by subcutaneous injection every week semaglutide, weight loss, (WEGOVY) 0.5 mg/0.5 mL pen injector Inject 0.5 mL subcutaneously one time a week for 28 days. 2 mL 0 07/18/2022 08/21/2022 Active Start: 07-18-2022 End: 08-15-2022 inject 0.5 mL by subcutaneous injection every week semaglutide, weight loss, (WEGOVY) 0.5 mg/0.5 mL pen injector Inject 0.5 mL subcutaneously one time a week for 28 days. 2 mL 0 07/18/2022 08/15/2022 Active Start: 06-21-2022 End: 07-17-2022 inject 0.5 mL by subcutaneous injection every week semaglutide, weight loss, (WEGOVY) 0.5 mg/0.5 mL pen injector Inject 0.5 mL subcutaneously one time a week for 28 days. 2 mL 0 06/21/2022 07/17/2022 Discontinued Start: 06-21-2022 End: 07-24-2022 inject 0.5 mL by subcutaneous injection every week semaglutide, weight loss, (WEGOVY) 0.5 mg/0.5 mL pen injector Inject 0.5 mL subcutaneously one time a week for 28 days. 2 mL 0 06/21/2022 07/24/2022 Active Start: 06-21-2022 End: 07-23-2022 inject 0.5 mL by subcutaneous injection every week semaglutide, weight loss, (WEGOVY) 0.5 mg/0.5 mL pen injector Inject 0.5 mL subcutaneously one time a week for 28 days. 2 mL 0 06/21/2022 07/23/2022 Active Start: 06-21-2022 End: 07-19-2022 inject 0.5 mL by subcutaneous injection every week semaglutide, weight loss, (WEGOVY) 0.5 mg/0.5 mL pen injector Inject 0.5 mL subcutaneously one time a week for 28 days. 2 mL 0 06/21/2022 07/19/2022 Active Comment on above: Inject 0.5 mL subcutaneously one time a week for 28 days. semaglutide, weight loss, (WEGOVY) 1 mg/0.5 mL pen injector (2 sources) Start: End: inject 0.5 mL by subcutaneous injection every week semaglutide, weight loss, (WEGOVY) 1 mg/0.5 mL pen injector Inject 0.5 mL subcutaneously one time a week. 2 mL 1 08/23/2022 10/18/2022 Active Comment on above: Inject 0.5 mL subcutaneously one time a week. semaglutide, weight loss, (WEGOVY) 2.4 mg/0.75 mL pen injector (20 sources) Start: End: semaglutide, weight loss, (WEGOVY) 2.4 mg/0.75 mL pen injector Indications: Class 1 obesity due to excess calories with body mass index (BMI) of 34.0 to 34.9 in adult, unspecified whether serious comorbidity present Inject 2.4 mg under the skin one time a week. 3 mL 2 12/03/2024 3:54 PM EDT 11/11/2024 02/09/2025 Active Start: 11-11-2024 End: 02-09-2025 semaglutide, weight loss, (W EGOVY) 2.4 mg/0.75 mL pen injector Indications: Class 1 obesity due to excess calories with body mass index (BMI) of 34.0 to 34.9 in adult, unspecified whether serious comorbidity present Inject 2.4 mg under the skin one time a week. 3 mL 2 11/12/2024 8:05 AM EDT 11/11/2024 02/09/2025 Active Start: 11-11-2024 End: 02-09-2025 semaglutide, weight loss, (W EGOVY) 2.4 mg/0.75 mL pen injector Indications: Class 1 obesity due to excess calories with body mass index (BMI) of 34.0 to 34.9 in adult, unspecified whether serious comorbidity present Inject 2.4 mg under the skin one time a week. 3 mL 2 11/11/2024 02/09/2025 Active Start: 08-17-2024 End: 11-10-2024 semaglutide, weight loss, (W EGOVY) 2.4 mg/0.75 mL pen injector Indications: Class 1 obesity due to excess calories with body mass index (BMI) of 34.0 to 34.9 in adult, unspecified whether serious comorbidity present Inject 2.4 mg under the skin one time a week. 3 mL 2 10/15/2024 8:48 AM EDT 08/17/2024 11/10/2024 Discontinued Start: 08-17-2024 End: 11-15-2024 semaglutide, weight loss, (W EGOVY) 2.4 mg/0.75 mL pen injector Indications: Class 1 obesity due to excess calories with body mass index (BMI) of 34.0 to 34.9 in adult, unspecified whether serious comorbidity present Inject 2.4 mg under the skin one time a week. 3 mL 2 10/15/2024 8:48 AM EDT 08/17/2024 11/15/2024 Active Start: 08-17-2024 End: 11-15-2024 semaglutide, weight loss, (W EGOVY) 2.4 mg/0.75 mL pen injector Indications: Class 1 obesity due to excess calories with body mass index (BMI) of 34.0 to 34.9 in adult, unspecified whether serious comorbidity present Inject 2.4 mg under the skin one time a week. 3 mL 2 09/09/2024 10:08 AM EDT 08/17/2024 11/15/2024 Active Start: 08-17-2024 End: 11-15-2024 semaglutide, weight loss, (W EGOVY) 2.4 mg/0.75 mL pen injector Indications: Class 1 obesity due to excess calories with body mass index (BMI) of 34.0 to 34.9 in adult, unspecified whether serious comorbidity present Inject 2.4 mg under the skin one time a week. 3 mL 2 08/18/2024 12:56 PM EDT 08/17/2024 11/15/2024 Active Start: 08-17-2024 End: 11-15-2024 semaglutide, weight loss, (W EGOVY) 2.4 mg/0.75 mL pen injector Indications: Class 1 obesity due to excess calories with body mass index (BMI) of 34.0 to 34.9 in adult, unspecified whether serious comorbidity present Inject 2.4 mg under the skin one time a week. 3 mL 2 08/17/2024 11/15/2024 Active Start: 05-06-2024 End: 08-10-2024 semaglutide, weight loss, (W EGOVY) 2.4 mg/0.75 mL pen injector Indications: Class 1 obesity due to excess calories with body mass index (BMI) of 34.0 to 34.9 in adult, unspecified whether serious comorbidity present Inject 2.4 mg under the skin one time a week. 3 mL 2 07/13/2024 10:05 AM EDT 05/06/2024 08/10/2024 Active Start: 05-06-2024 End: 08-04-2024 semaglutide, weight loss, (W EGOVY) 2.4 mg/0.75 mL pen injector Indications: Class 1 obesity due to excess calories with body mass index (BMI) of 34.0 to 34.9 in adult, unspecified whether serious comorbidity present Inject 2.4 mg under the skin one time a week. 3 mL 2 06/08/2024 1:59 PM EST 05/06/2024 08/04/2024 Active Start: 05-06-2024 End: 08-04-2024 semaglutide, weight loss, (W EGOVY) 2.4 mg/0.75 mL pen injector Indications: Class 1 obesity due to excess calories with body mass index (BMI) of 34.0 to 34.9 in adult, unspecified whether serious comorbidity present Inject 2.4 mg under the skin one time a week. 3 mL 2 05/07/2024 11:43 AM EST 05/06/2024 08/04/2024 Active Start: 05-06-2024 End: 08-04-2024 semaglutide, weight loss, (W EGOVY) 2.4 mg/0.75 mL pen injector Indications: Class 1 obesity due to excess calories with body mass index (BMI) of 34.0 to 34.9 in adult, unspecified whether serious comorbidity present Inject 2.4 mg under the skin one time a week. 3 mL 2 05/06/2024 08/04/2024 Active Start: 02-09-2024 End: 04-29-2024 semaglutide, weight loss, (W EGOVY) 2.4 mg/0.75 mL pen injector Indications: Class 1 obesity due to excess calories with body mass index (BMI) of 34.0 to 34.9 in adult, unspecified whether serious comorbidity present Inject 2.4 mg under the skin one time a week. 3 mL 2 02/09/2024 04/29/2024 Discontinued Start: 02-09-2024 End: 05-11-2024 semaglutide, weight loss, (W EGOVY) 2.4 mg/0.75 mL pen injector Indications: Class 1 obesity due to excess calories with body mass index (BMI) of 34.0 to 34.9 in adult, unspecified whether serious comorbidity present Inject 2.4 mg under the skin one time a week. 3 mL 2 02/09/2024 05/11/2024 Active Start: 02-09-2024 End: 05-09-2024 semaglutide, weight loss, (W EGOVY) 2.4 mg/0.75 mL pen injector Indications: Class 1 obesity due to excess calories with body mass index (BMI) of 34.0 to 34.9 in adult, unspecified whether serious comorbidity present Inject 2.4 mg under the skin one time a week. 3 mL 2 02/09/2024 05/09/2024 Active Start: 11-21-2023 End: 02-05-2024 semaglutide, weight loss, (W EGOVY) 2.4 mg/0.75 mL pen injector Indications: Class 1 obesity due to excess calories with body mass index (BMI) of 34.0 to 34.9 in adult, unspecified whether serious comorbidity present Inject 2.4 mg under the skin one time a week. 3 mL 2 11/21/2023 02/05/2024 Discontinued Start: 11-21-2023 End: 02-19-2024 semaglutide, weight loss, (W EGOVY) 2.4 mg/0.75 mL pen injector Indications: Class 1 obesity due to excess calories with body mass index (BMI) of 34.0 to 34.9 in adult, unspecified whether serious comorbidity present Inject 2.4 mg under the skin one time a week. 3 mL 2 11/21/2023 02/19/2024 Active Start: 09-08-2023 End: 11-19-2023 semaglutide, weight loss, (W EGOVY) 2.4 mg/0.75 mL pen injector Indications: Class 1 obesity due to excess calories with body mass index (BMI) of 34.0 to 34.9 in adult, unspecified whether serious comorbidity present Inject 2.4 mg under the skin one time a week. 3 mL 2 09/08/2023 11/19/2023 Discontinued Start: 09-08-2023 End: 12-07-2023 semaglutide, weight loss, (W EGOVY) 2.4 mg/0.75 mL pen injector Indications: Class 1 obesity due to excess calories with body mass index (BMI) of 34.0 to 34.9 in adult, unspecified whether serious comorbidity present Inject 2.4 mg under the skin one time a week. 3 mL 2 09/08/2023 12/07/2023 Active Start: 09-08-2023 End: 12-07-2023 semaglutide, weight loss, (W EGOVY) 2.4 mg/0.75 mL pen injector Indications: Class 1 obesity due to excess calories with body mass index (BMI) of 34.0 to 34.9 in adult, unspecified whether serious comorbidity present Inject 0.75 mL subcutaneously one time a week. 3 mL 2 09/08/2023 12/07/2023 Active Start: 06-20-2023 End: 09-05-2023 semaglutide, weight loss, (W EGOVY) 2.4 mg/0.75 mL pen injector Indications: Class 1 obesity due to excess calories with body mass index (BMI) of 34.0 to 34.9 in adult, unspecified whether serious comorbidity present Inject 0.75 mL subcutaneously one time a week. 3 mL 2 06/20/2023 09/05/2023 Discontinued Start: 06-20-2023 End: 09-19-2023 semaglutide, weight loss, (W EGOVY) 2.4 mg/0.75 mL pen injector Indications: Class 1 obesity due to excess calories with body mass index (BMI) of 34.0 to 34.9 in adult, unspecified whether serious comorbidity present Inject 0.75 mL subcutaneously one time a week. 3 mL 2 06/20/2023 09/19/2023 Active Start: 06-20-2023 End: 09-18-2023 semaglutide, weight loss, (W EGOVY) 2.4 mg/0.75 mL pen injector Indications: Class 1 obesity due to excess calories with body mass index (BMI) of 34.0 to 34.9 in adult, unspecified whether serious comorbidity present Inject 0.75 mL subcutaneously one time a week. 3 mL 2 06/20/2023 09/18/2023 Active Start: 06-17-2023 End: 09-15-2023 semaglutide, weight loss, (W EGOVY) 2.4 mg/0.75 mL pen injector Indications: Class 1 obesity due to excess calories with body mass index (BMI) of 34.0 to 34.9 in adult, unspecified whether serious comorbidity present Inject 0.75 mL subcutaneously one time a week. 3 mL 2 06/17/2023 09/15/2023 Active Comment on above: Inject 0.75 mL subcu taneously one time a week. tamsulosin hydrochloride 0.4 mg oral capsule (20 sources) alpha-Adrenergic Jasmeet take 0.4 mg by mouth once daily tamsulosin (FLOMAX) 0.4 mg Take 0.4 mg by mouth once daily. Active Comment on above: Take 0.4 mg by mouth once daily. warfarin sodium 5 mg oral tablet (20 sources) Vitamin K Antagonist Start: 05-29-19 End: 10-13-19 22 take 1.5 tablets by mouth once daily warfarin (COUMADIN) 5 mg tablet Take 1.5 tablets by mouth once daily. Patient currently taking 7.5 mg every Mon, Wed, Fri; 5 mg all other days 0 09/28/2021 10/12/2021 Discontinued Start: 11-01-2020 End: 11-21-2023 warfarin (COUMADIN) 5 mg tab let 7.5 mg every Mon, Fri; 5 mg all other days 110 tablet 1 12/10/2021 Active Start: 11-01-2020 End: 11-12-2022 take 7.5 mg by mouth once daily Warfarin Active 0 MG P O DAILY 135 November 12, 2022 2:27pm 7.5 mg a day Start: 09-15-2020 End: 11-01-2020 take 1 tablet by mouth once daily Warfarin 5 mg tablet Discontinued 5 mg PO DAILY September 15, 2020 12:00am November 01, 2020 11:55am Please contact the information source for Protocol details. Comment on above: Take 1.5 tablets by mouth once daily. 7.5 mg daily Take 1.5 tablets by mouth once daily. Patient currently taking 7.5 mg every Mon, Fri, Fri; 5 mg all other days 7.5 mg every Mon; 5 mg all other days 7.5 mg every Fri, Fr i; 5 mg all other days Completed/Discontinued Medications Medication Drug Class(es) Dates Sig (Normalized) Sig (Original) [id number] actuat albuterol 0.09 mg/actuat metered dose inhaler (20 sources) beta2-Adrenergic Agonist Start: 10-25-2016 End: 09-09-2022 Albuterol Sulfate 1 INHALER inhaler Discontinued 1 - 2 NMA INHALATION EVERY 6 HOURS NEEDED as needed for Wheezing October 25, 2016 12:00am September 09, 2022 9:30am Start: 10-25-2016 End: 09-09-2022 take 1 puff(s) by inhalation every six hours as needed Albuterol Sulfate Discontinued 1 - 2 PUFF INHALATION EVERY 6 HOURS NEEDED October 24, 2016 11:00pm September 09, 2022 8:30am Start: 10-22-2007 take 1 puff(s) by in halation once daily as needed for wheezing ALBUTEROL 90 MCG/ACTUATION AEROSOL INHALER Inhale one(1) - two(2) puffs four(4) times a day as needed for wheezing and shortness of breath. 0 10/22/2007 Active Comment on above: Inhale one(1) - two( 2) puffs four(4) times a day as needed for wheezing and shortness of breath. cholecalciferol 0.025 mg oral capsule (6 sources) Vitamin D Start: 05-17-2016 End: 11-01-2020 Cholecalciferol (Vitamin D3) 1,000 UNIT capsule Discontinued 97547 U PO EVERY WEEK May 17, 2016 1:00am November 01, 2020 11:32am Start: 05-17-2016 End: 11-01-2020 take 19403 [IU] by mouth every week Cholecalciferol (Vitamin D3) Discontinued 84555 UNIT PO EVERY WEEK May 17, 2016 12:00am November 01, 2020 10:32am dexamethasone 6 mg oral tablet (6 sources) Corticosteroid Start: 06-09-2020 End: 06-16-2020 take 1 tablet by mouth once daily Dexamethasone 6 MG tablet Discontinued 6 mg PO DAILY 7 7 0 June 09, 2020 1:00am June 15, 2020 1:00am June 16, 2020 1:03am doxycycline hyclate 100 mg oral capsule (12 sources) Tetracycline-class Drug Start: 07-10-2021 End: 07-20-2021 take 1 capsule by mouth twice daily Doxycycline Hyclate 100 mg capsule Discontinued 100 mg PO TWICE A DAY 20 10 0 July 10, 2021 12:00am July 19, 2021 12:00am July 20, 2021 12:04am Acute sinusitis, unspecified Start: 03-14-2018 End: 10-12-2018 take 1 capsule by mouth twice daily Doxycycline Monohydrate 100 MG capsule Discontinued 100 mg PO TWICE A DAY 8 0 March 14, 2018 1:00am October 12, 2018 2:15pm irbesartan 150 mg oral tablet (6 sources) Angiotensin 2 Receptor Jasmeet Start: 06-02-2020 End: 10-10-2020 take 1 tablet by mouth once daily Irbesartan 150 MG tablet Discontinued 150 mg PO DAILY June 02, 2020 1:00am October 10, 2020 10:34am magnesium oxide 400 mg oral tablet (6 sources) Start: 09-01-2020 End: 10-10-2020 take 1 tablet by mouth twice daily Magnesium Oxide 400 mg (241.3 mg magnesium) tablet Discontinued 400 mg PO TWICE A DAY September 01, 2020 12:00am October 10, 2020 10:35am Multivitamin With Folic Acid (5 sources) Start: 02-06-2015 End: 10-10-2020 take 1 tablet by mouth once daily Multivitamin With Folic Acid Discontinued 1 TABLET PO DAILY February 05, 2015 11:00pm October 10, 2020 9:35am Start: 02-06-2015 End: 10-10-2020 take 1 tablet by mouth once daily Multivitamin With Folic Acid Discontinued 1 TABLET PO DAILY February 06, 2015 12:00am October 10, 2020 10:35am Multivitamin With Folic Acid 1 TABLET tablet (1 source) Start: 02-06-2015 End: 10-10-2020 take 1 tablet by mouth once daily Multivitamin With Folic Acid 1 TABLET tablet Discontinued 1 {tbl} PO DAILY February 06, 2015 12:00am October 10, 2020 10:35am naproxen 500 mg oral tablet (6 sources) Nonsteroidal Anti-inflammatory Drug Start: 06-02-2020 End: 09-01-2020 take 1 tablet by mouth twice daily Naproxen 500 MG tablet Discontinued 500 mg PO TWICE A DAY June 02, 2020 1:00am September 01, 2020 10:05am nebivolol 5 mg oral tablet (6 sources) Start: 05-17-2016 End: 10-10-2020 take 1 tablet by mouth once daily Nebivolol 5 MG tablet Discontinued 5 mg PO DAILY May 17, 2016 1:00am October 10, 2020 10:34am omeprazole 20 mg delayed release oral capsule (18 sources) Proton Pump Inhibitor Start: 06-02-2020 End: 10-10-2020 take 1 capsule by mouth once daily as needed Omeprazole 20 mg capsule,delayed release(DR/EC) Discontinued 20 mg PO DAILY as needed September 01, 2020 10:06am October 10, 2020 10:35am Start: 10-28-2018 End: 11-28-2018 take 1 capsule by mouth twice daily Omeprazole 40 mg capsule,delayed release(DR/EC) Discontinued 40 mg PO TWICE A DAY 60 30 0 October 28, 2018 12:00am November 26, 2018 12:00am November 28, 2018 12:08am ondansetron 4 mg disintegrating oral tablet (6 sources) Serotonin-3 Receptor Antagonist Start: 06-02-2020 End: 09-01-2020 take 1 tablet by mouth every eight hours as needed for nausea Ondansetron 4 MG tablet Discontinued 4 mg PO EVERY 8 HOURS NEEDED as needed for Nausea June 02, 2020 1:00am September 01, 2020 10:06am oxyCODONE hydrochloride 5 mg oral tablet (6 sources) Opioid Agonist Start: 10-10-2020 End: 11-01-2020 take 1 tablet by mouth every six hours as needed Oxycodone 5 mg tablet Discontinued 5 mg PO EVERY 6 HOURS as needed October 10, 2020 12:00am November 01, 2020 11:33am History of mechanical aortic valve replacement Presence of prosthetic heart valve predniSONE 10 mg oral tablet (6 sources) Start: 11-01-2020 End: 01-30-2021 Prednisone 10 mg tablet Discontinued 10 mg PO .COMPLEX 30 0 November 01, 2020 12:00am January 30, 2021 9:48am Take 4 pills for 3 days, 3 pills for 3 days, 2 pills for 3 days, take 1 pill for 3 days semaglutide, weight loss, (WEGOVY) 1.7 mg/0.75 mL pen injector (10 sources) Start: 05-21-2023 End: 06-17-2023 inject 0.75 mL by subcutaneous injection every week semaglutide, weight loss, (WEGOVY) 1.7 mg/0.75 mL pen injector Inject 0.75 mL subcutaneously one time a week. 3 mL 2 05/21/2023 06/17/2023 Discontinued Start: 05-21-2023 End: 08-19-2023 inject 0.75 mL by subcutaneous injection every week semaglutide, weight loss, (WEGOVY) 1.7 mg/0.75 mL pen injector Inject 0.75 mL subcutaneously one time a week. 3 mL 2 05/21/2023 08/19/2023 Active Start: 02-07-2023 End: 05-08-2023 inject 0.75 mL by subcutaneous injection every week semaglutide, weight loss, (WEGOVY) 1.7 mg/0.75 mL pen injector Inject 0.75 mL subcutaneously one time a week. 3 mL 2 02/07/2023 05/08/2023 Active Start: 10-31-2022 End: 02-03-2023 inject 0.75 mL by subcutaneous injection every week semaglutide, weight loss, (WEGOVY) 1.7 mg/0.75 mL pen injector Inject 0.75 mL subcutaneously one time a week. 3 mL 2 10/31/2022 02/03/2023 Discontinued Start: 10-31-2022 End: 02-07-2023 inject 0.75 mL by subcutaneous injection every week semaglutide, weight loss, (WEGOVY) 1.7 mg/0.75 mL pen injector Inject 0.75 mL subcutaneously one time a week. 3 mL 2 10/31/2022 02/07/2023 Active Start: 10-31-2022 End: 01-29-2023 inject 0.75 mL by subcutaneous injection every week semaglutide, weight loss, (WEGOVY) 1.7 mg/0.75 mL pen injector Inject 0.75 mL subcutaneously one time a week. 3 mL 2 10/31/2022 01/29/2023 Active Comment on above: Inject 0.75 mL subcu taneously one time a week. tadalafil 5 mg oral tablet (12 sources) Phosphodiesterase 5 Inhibitor Start: 05-17-19 End: 10-11-19 take 1 tablet by mouth once daily Tadalafil 5 mg tablet Discontinued 5 mg PO DAILY September 01, 2020 10:04am October 10, 2020 10:34am Start: 05-17-2016 End: 09-01-2020 take 10 mg by mouth once daily Tadalafil Discontinued 10 MG PO DAILY May 17, 2016 12:00am September 01, 2020 9:06am traZODone hydrochloride 50 mg oral tablet (6 sources) Serotonin Reuptake Inhibitor Start: 09-01-2020 End: 10-10-2020 take 1 tablet by mouth at bedtime Trazodone 50 mg tablet Discontinued 50 mg PO AT BEDTIME September 01, 2020 12:00am October 10, 2020 10:35am zinc sulfate 110 mg oral tablet (6 sources) Start: 09-01-2020 End: 10-10-2020 take 1 tablet by mouth once daily Zinc Sulfate (Orazinc) 25 mg zinc (110 mg) tablet Discontinued 25 mg PO DAILY September 01, 2020 12:00am October 10, 2020 10:35am Problems Active Problems Problem Classification Problem Date Documented Date Episodic/Chronic Allergic reactions (1 source) Allergy status to penicillin; Translations: [Allergy status to penicillin] Onset: 01-10-2025 Episodic Anxiety disorders (6 sources) Anxiety; Translations: [Anxiety disorder, unspecified] 06-07-2020 Chronic Aortic; peripheral; and visceral artery aneurysms (6 sources) Aortic root dilatation; Translations: [Thoracic aortic ectasia] 10-10-2020 Chronic Bacterial infection; unspecified site (1 source) Other specified bacterial agents as the cause of diseases classified elsewhere; Translations: [Bacterial sinusitis] Onset: 01-10-2025 Episodic Cardiac and circulatory congenital anomalies (20 sources) Bicuspid aortic valve; Translations: [Congenital insufficiency of aortic valve] Onset: 06-13-2022 10-10-2020 Chronic Cardiac dysrhythmias (7 sources) Ventricular arrhythmia; Translations: [Ventricular premature depolarization] Chronic Disorders of lipid metabolism (10 sources) Hypercholesterolemia; Translations: [Pure hypercholesterolemia, unspecified] Onset: 11-05-2024 01-30-2021 Chronic Esophageal disorders (20 sources) Obstruction of esophagus; Translations: [Esophageal obstruction] Onset: 12-31-2010 12-31-2010 Chronic Essential hypertension (20 sources) Essential hypertension; Translations: [Essential (primary) hypertension] Onset: 09-08-2020 09-16-2020 Chronic Gastritis and duodenitis (20 sources) Chronic antral gastritis; Translations: [Unspecified chronic gastritis without bleeding] Onset: 02-16-2015 02-16-2015 Chronic Heart valve disorders (20 sources) History of mechanical aortic valve replacement; Translations: [Presence of prosthetic heart valve] Onset: 08-19-2020 Chronic Comment on above: On-X Aortic Valve re placement (Mechanical) placed at [facility] 09/12/2020 Heart valve disorders (6 sources) Heart murmur; Translations: [Cardiac murmur, unspecified] 06-07-2020 Episodic Immunizations and screening for infectious disease (4 sources) Contact with and (suspected) exposure to other viral communicable diseases; Translations: [Contact with or suspected exposure to other viral communicable disease] 09-09-2022 Episodic Malaise and fatigue (6 sources) Fatigue; Translations: [Other fatigue] 09-01-2020 Episodic Other aftercare (1 source) 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; Translations: [detention (current) use of anticoagulants] Onset: 01-10-2025 Episodic Other connective tissue disease (6 sources) History of cervical spine fusion; Translations: [Arthrodesis status] 08-24-2020 Episodic Other lower respiratory disease (6 sources) Dyspnea; Translations: [Shortness of breath] 09-01-2020 Episodic Other lower respiratory disease (6 sources) Hypoxemia; Translations: [Hypoxemia] 06-06-2020 Episodic Other non-traumatic joint disorders (1 source) Pain in left hip; Translations: [Pain in left hip] Onset: 11-16-2024 Episodic Other nutritional; endocrine; and metabolic disorders (20 sources) Obese class I; Translations: [Obesity, unspecified] Onset: 09-08-2020 04-17-2021 Chronic Other nutritional; endocrine; and metabolic disorders (1 source) Obesity; Translations: [Other obesity due to excess calories] Chronic Other nutritional; endocrine; and metabolic disorders (8 sources) Obesity caused by energy imbalance; Translations: [Other obesity due to excess calories] 06-17-2023 Chronic Other upper respiratory disease (1 source) Other specified disorders of nose and nasal sinuses; Translations: [Sinus pressure] Onset: 01-22-2025 Episodic Other upper respiratory disease (1 source) Nasal congestion; Translations: [Sinus congestion] Onset: 01-22-2025 Episodic Other upper respiratory infections (1 source) Chronic sinusitis, unspecified; Translations: [Bacterial sinusitis] Onset: 01-10-2025 Chronic Other upper respiratory infections (11 sources) Acute sinusitis; Translations: [Acute sinusitis, unspecified] Episodic Stella-; endo-; and myocarditis; cardiomyopathy (except that caused by tuberculosis or sexually transmitted disease) (1 source) Heart valve disorder; Translations: [Endocarditis, valve unspecified] 08-01-2023 Chronic Pneumonia (except that caused by tuberculosis or sexually transmitted disease) (6 sources) Severe acute respiratory syndrome; Translations: [Pneumonia due to SARS-associated coronavirus] 06-06-2020 Episodic Residual codes; unclassified (6 sources) Past history of procedure; Translations: [Other specified postprocedural states] 08-24-2020 Episodic Comment on above: 10/12/18 Residual codes; unclassified (6 sources) History of colonoscopy; Translations: [Other specified postprocedural states] 08-24-2020 Episodic Spondylosis; intervertebral disc disorders; other back problems (6 sources) Backache; Translations: [Dorsalgia, unspecified] 06-07-2020 Episodic Unclassified (3 sources) History of mechanical aortic valve replacement 09-29-2024 Viral infection (6 sources) Disease caused by 2019-nCoV; Translations: [COVID-19] 06-06-2020 Episodic Past or Other Problems Problem Classification Problem Date Documented Date Episodic/Chronic Administrative/social admission (20 sources) Discharge status; Translations: [Encounter for administrative examinations, unspecified] Onset: 09-08-2020 09-16-2020 Episodic Cardiac and circulatory congenital anomalies (5 sources) H/O: cardiac anomaly; Translations: [Personal history of (corrected) congenital malformations of heart and circulatory system] Onset: 09-29-2024 09-29-2024 Episodic Cardiac dysrhythmias (11 sources) Palpitations; Translations: [Palpitations] Onset: 09-29-2024 09-01-2020 Episodic Diabetes mellitus without complication (20 sources) Metabolic stress hyperglycemia; Translations: [Hyperglycemia, unspecified] Onset: 09-12-2020 Resolved: 09-16-2020 04-17-2021 Episodic Other aftercare (20 sources) Long-term current use of anticoagulant; Translations: [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] Onset: 09-16-2020 Episodic Other aftercare (20 sources) Patient encounter status; Translations: [Encounter for therapeutic drug level monitoring] Onset: 09-16-2020 09-16-2020 Episodic Other injuries and conditions due to external causes (20 sources) Obstruction of esophagus; Translations: [Food in esophagus causing other injury, initial encounter] Onset: 01-19-2015 01-19-2015 Episodic Other liver diseases (20 sources) Increased bilirubin level; Translations: [Unspecified jaundice] Onset: 09-14-2020 09-16-2020 Episodic Other liver diseases (20 sources) Elevated liver enzymes level; Translations: [Abnormal levels of other serum enzymes] Onset: 09-14-2020 09-16-2020 Episodic Other nervous system disorders (20 sources) Postoperative pain ; Translations: [Other acute postprocedural pain] Onset: 09-12-2020 04-17-2021 Episodic Other screening for suspected conditions (not mental disorders or infectious disease) (1 source) Elevated prostate specific antigen [PSA]; Translations: [Elevated prostate specific antigen [PSA]] Onset: 05-31-2024 Episodic Pleurisy; pneumothorax; pulmonary collapse (20 sources) Pleural effusion; Translations: [Pleural effusion, not elsewhere classified] Onset: 09-13-2020 04-17-2021 Episodic Respiratory failure; insufficiency; arrest (adult) (20 sources) Ventilator finding; Translations: [Dependence on respirator [ventilator] status] Onset: 09-12-2020 Resolved: 09-13-2020 04-17-2021 Chronic Results Test Name Value Interpretation Reference Range Facility [facility] 02-22-2025 CNPN Telephone (PHAMTE) ARSENIO VILLALOBOS ([id number]) 1965 M Date Time Provider Department 02/22/25 LUCITA ALBA During your visit today, we recorded the following information about you: Lucita Alba sommer 02/22/2025 7:48 AM Signed [facility] Anticoagulation Episode Summary Anticoagulation Care Providers Provider Role Specialty Phone number Juan Willis MD Referring Cardiology [phone] Arsenio Villalobos is a 59 year old year old male patient being evaluated today for a Telemanagement visit. Patient is currently on the following anticoagulant(s) Warfarin. Labs Lab Results Component Value Date INR 1.6 02/21/2025 INR 2.0 01/29/2025 INR 1.7 01/07/2025 Lab Results Component Value Date HB 14.5 06/12/2022 HB 15.2 10/24/2020 HB 12.9 (L) 09/22/2020 Lab Results Component Value Date HCT 43.7 06/12/2022 HCT 46.6 10/24/2020 HCT 40.0 09/22/2020 Lab Results Component Value Date PLT 188 06/12/2022 PLT 286 10/24/2020 PLT 488 (H) 09/22/2020 Lab Results Component Value Date CREAT 1.04 11/05/2024 CREAT 1.05 06/12/2022 CREAT 1.18 10/24/2020 No components found for: [id number] Lab Results Component Value Date ALT 32 11/05/2024 ALT 27 06/12/2022 ALT 19 10/24/2020 Lab Results Component Value Date AST 34 11/05/2024 AST 29 06/12/2022 AST 24 10/24/2020 CrCl cannot be calculated (Unknown ideal weight.). ALLERGIES Allergen Reactions Penicillins Unknown childhood Tegaderm Ag Mesh [S* Rash, Swelling Indication for Warfarin: Anticoagulation Episode Summary Current INR goal: 1.5-2.0 Assessment: INR result of 1.6 is therapeutic Plan: Current Warfarin Dosing As of 02/22/2025 Full warfarin instructions: 2.5 mg every Fri, Sat; 5 mg all other days Sent [employer] message Advised patient to continue current weekly dose as noted above Next home INR check scheduled on 03/08/2025 Patient advised to call the PAC with any medication changes, bleeding/bruising concerns, recent changes in vitamin k consumption, if any procedures are coming up, if they have been ill or in the hospital, and if they have missed any doses of warfarin. Lucita Alba [facility] Clinical Pharmacist, Pharmacy Anticoagulation Clinic Pharmacy [facility] Pager: [phone]. Allergies As of Date: 02/22/2025 Noted Allergy Reaction PENICILLINS 10/22/2007 16 - Unknown Comments: childhood TEGADERM AG MESH (SILVER) 09/06/2020 2 - Rash 7 - Swelling Date Reviewed: 01/22/2025 Reviewed by: Suni Ibarra LPN - Fully Assessed Reason for Visit: Anticoagulation Telephone Fu [148] Cmt: Home INR result Prescriptions as of 02/22/2025 - semaglutide, weight loss, (WEGOVY) 2.4 mg/0.75 mL pen injector Inject 2.4 mg under the skin one time a week. - doxycycline monohydrate (MONODOX) 100 mg capsule Take 1 capsule by mouth two times a day. - fluticasone (FLONASE ALLERGY RELIEF) 50 mcg/actuation nasal spray Use 2 sprays in each nostril once daily. - atorvastatin (LIPITOR) 20 mg tablet Take 1 tablet by mouth once daily. - metoprolol succinate ER (TOPROL XL) 100 mg TAKE 1 TABLET BY MOUTH EVERY DAY - MULTIVITAMIN ORAL Take by mouth. - losartan (COZAAR) 100 mg tablet Take 1 tablet by mouth once daily. - tamsulosin (FLOMAX) 0.4 mg Take 0.4 mg by mouth once daily. - warfarin (COUMADIN) 5 mg tablet 7.5 mg every Mon, Fri; 5 mg all other days - pantoprazole DR (PROTONIX) 40 mg tablet Take 1 tablet by mouth as needed. - aspirin 81 mg chewable tablet 1 tablet by ORAL/FEEDING TUBE route once daily. - buPROPion SR (ZYBAN SR; WELLBUTRIN SR) 150 mg 12 hr tablet Take by mouth once daily. - p-ephed hcl/cetirizine hcl(ZYRTEC-D 5 MG-120 MG 12 HR TAB) Take one(1) tablet two(2) times daily. - ALBUTEROL 90 MCG/ACTUATION AEROSOL INHALER Inhale one(1) - two(2) puffs four(4) times a day as needed for wheezing and shortness of breath. Problem List As Of Date 02/22/2025 Noted Resolved Esophageal obstruction [K22.2] 12/31/2010 Esophageal obstruction due to food impaction [T*01/19/2015 Chronic antral gastritis [K29.50] 02/16/2015 Gastroesophageal reflux disease with esophagiti*02/16/2015 Obesity, Class I, BMI 30-34.9 [E66.811] 09/08/2020 Essential hypertension [I10] 09/08/2020 Severe aortic stenosis [I35.0] 09/08/2020 Discharge planning issues [Z75.8] 09/08/2020 Preop testing [Z01.818] 09/08/2020 On mechanically assisted ventilation (HCC) [Z99*09/12/2020 09/13/2020 Postoperative pain [G89.18] 09/12/2020 Stress hyperglycemia [R73.9] 09/12/2020 09/16/2020 Pleural effusion [J90] 09/13/2020 High bilirubin [R17] 09/14/2020 Liver enzyme elevation [R74.8] 09/14/2020 Encounter for support and coordination of trans*09/15/2020 Encounter for monitoring warfarin therapy [Z51.*09/16/2020 detention current use of anticoagulant [Z7 (more content not included)... Normal [facility] CNPNon 01-31-2025 CNPN Telephone (PHAMTE) ARSENIO VILLALOBOS ([id number]) 1965 M Date Time Provider Department 01/31/25 MELANY WRIGHT PHALÁZAROE During your visit today, we recorded the following information about you: Melany Wright [facility] 01/31/2025 5:59 AM Signed [facility] Anticoagulation Episode Summary Anticoagulation Care Providers Provider Role Specialty Phone number Juan Willis MD Referring Cardiology [phone] Arsenio Villalobos is a 59 year old year old male patient being evaluated today for a Telemanagement visit. Patient is currently on the following anticoagulant(s) Warfarin. Labs PT INR (no units) Date Value 03/14/2022 1.4 biotel 10/12/2021 2.7 07/30/2021 3.6 biotel INR Home CoaguChek (no units) Date Value 01/29/2025 2.0 01/07/2025 1.7 12/20/2024 2.6 Hemoglobin (g/dL) Date Value 06/12/2022 14.5 10/24/2020 15.2 Hematocrit (%) Date Value 06/12/2022 43.7 10/24/2020 46.6 Platelet Count (k/uL) Date Value 06/12/2022 188 10/24/2020 286 Creatinine (mg/dL) Date Value 11/05/2024 1.04 06/12/2022 1.05 10/24/2020 1.18 09/22/2020 1.13 09/17/2020 0.94 Bilirubin, Total (mg/dL) Date Value 11/05/2024 0.9 10/24/2020 0.4 ALT (U/L) Date Value 11/05/2024 32 10/24/2020 19 AST (U/L) Date Value 11/05/2024 34 10/24/2020 24 CrCl cannot be calculated (Unknown ideal weight.). ALLERGIES Allergen Reactions Penicillins Unknown childhood Tegaderm Ag Mesh [S* Rash, Swelling Indication for Warfarin: Anticoagulation Episode Summary Current INR goal: 1.5-2.0 Assessment: INR result of 2.0 is therapeutic Plan: Current Warfarin Dosing As of 01/31/2025 Full warfarin instructions: 2.5 mg every Fri, Sat; 5 mg all other days Sent [employer] message Advised patient to continue current weekly dose as noted above Next INR check due on 02/14/2025 Melany Wright [facility] Clinical Pharmacist, Pharmacy Anticoagulation Clinic Pharmacy Anticoagulation Clinic Pager: [phone]. Lucita Alba RPh 02/14/2025 3:38 PM Signed Patient was due to test INR today. Will continue to monitor for results. Follow up in one week if no results received. Patient's INR Goal range is - 1.5-2.0 PT INR (no units) Date Value 03/14/2022 1.4 biotel 10/12/2021 2.7 07/30/2021 3.6 biotel INR Home CoaguChek (no units) Date Value 01/29/2025 2.0 01/07/2025 1.7 12/20/2024 2.6 Patient is in titration phase - No Patient has dosing provided until next INR - Yes Patient is on an injectable anticoagulant - No Lucita Alba [facility] Lucita Alba [facility] 02/21/2025 3:21 PM Signed Arsenio Villalobos was called and reminded to test INR today or as soon as possible. Lucita Alba sommer Allergies As of Date: 01/31/2025 Noted Allergy Reaction PENICILLINS 10/22/2007 16 - Unknown Comments: childhood TEGADERM AG MESH (SILVER) 09/06/2020 2 - Rash 7 - Swelling Date Reviewed: 01/22/2025 Reviewed by: Suni Ibarra LPN - Fully Assessed Reason for Visit: Anticoagulation Telephone Fu [148] Cmt: Home INR Result Prescriptions as of 02/21/2025 - semaglutide, weight loss, (WEGOVY) 2.4 mg/0.75 mL pen injector Inject 2.4 mg under the skin one time a week. - doxycycline monohydrate (MONODOX) 100 mg capsule Take 1 capsule by mouth two times a day. - fluticasone (FLONASE ALLERGY RELIEF) 50 mcg/actuation nasal spray Use 2 sprays in each nostril once daily. - atorvastatin (LIPITOR) 20 mg tablet Take 1 tablet by mouth once daily. - metoprolol succinate ER (TOPROL XL) 100 mg TAKE 1 TABLET BY MOUTH EVERY DAY - MULTIVITAMIN ORAL Take by mouth. - losartan (COZAAR) 100 mg tablet Take 1 tablet by mouth once daily. - tamsulosin (FLOMAX) 0.4 mg Take 0.4 mg by mouth once daily. - warfarin (COUMADIN) 5 mg tablet 7.5 mg every Mon, Fri; 5 mg all other days - pantoprazole DR (PROTONIX) 40 mg tablet Take 1 tablet by mouth as needed. - aspirin 81 mg chewable tablet 1 tablet by ORAL/FEEDING TUBE route once daily. - buPROPion SR (ZYBAN SR; WELLBUTRIN SR) 150 mg 12 hr tablet Take by mouth once daily. - p-ephed hcl/cetirizine hcl(ZYRTEC-D 5 MG-120 MG 12 HR TAB) Take one(1) tablet two(2) times daily. - ALBUTEROL 90 MCG/ACTUATION AEROSOL INHALER Inhale one(1) - two(2) puffs four(4) times a day as needed for wheezing and shortness of breath. Problem List As Of Date 01/31/2025 Noted Resolved Esophageal obstruction [K22.2] 12/31/2010 Esophageal obstruction due to food impaction [T*01/19/2015 Chronic antral gastritis [K29.50] 02/16/2015 Gastroesophageal reflux disease with esophagiti*02/16/2015 Obesity, Class I, BMI 30-34.9 [E66.811] 09/08/2020 Essential hypertension [I10] 09/08/2020 Severe aortic stenosis [I35.0] 09/08/2020 Discharge planning issues [Z75.8] 09/08/2020 Preop testing [Z01.818] 09/08/2020 On mechanically assisted ventila (more content not included)... Normal [facility] CNOVon 01-22-2025 CNOV Office Visit (WOUCA) GRISELDAARSENIO DEAN ([id number]) 1965 M Date Time Provider Department 01/22/25 12:30 PM SERENA HERRERA WOPATTI During your visit today, we recorded the following information about you: Temperature Pulse Respiration Blood pressure 97 degrees 94/minute 16/minute 112/76 Weight 95 kg Seerna Herrera, ISABELLE.LIFT OPERATOR 01/22/2025 12:45 PM Signed [facility] Subjective Arsenio Villalobos is a 59 year old male. Patient presents with: Pain, Sinus: Sinus pain and pressure x 3.5-4 weeks The history is provided by the patient. No russian language professor was used. Sinus Pressure and Congestion: - Initial onset a few weeks ago; treated with doxycycline, which provided temporary relief. - Symptoms recurred yesterday, including headache, pressure, and pain to touch. - Using Sudafed and Flonase for symptom management. - Denies fever >100.4?F. - Reports postnasal drip; denies cough, congestion, or rhinorrhea. - History of penicillin allergy, with a reaction reported at age 5 or 6; details of the reaction are unknown. Review of Systems Constitutional: Positive for fatigue. Negative for fever. HENT: Positive for postnasal drip, rhinorrhea, sinus pressure and sinus pain. Negative for congestion, ear pain and sore throat. Eyes: Negative for discharge. Respiratory: Negative for cough, shortness of breath and wheezing. Gastrointestinal: Negative for abdominal pain, diarrhea, nausea and vomiting. Musculoskeletal: Positive for myalgias. Negative for arthralgias. Neurological: Positive for headaches. Constitutional: (-) fever Head: (+) sinus pressure, (+) headache, (+) facial tenderness Ears/Nose/Mouth/Throat: (+) nasal congestion, (+) postnasal drip Objective BP 112/76 Pulse 94 Temp 36.1 ?C (97 ?F) (Tympanic) Resp 16 Wt 95 kg (209 lb 7 oz) SpO2 96% BMI 30.93 kg/m? Physical Exam Vitals and nursing note reviewed. Constitutional: General: He is not in acute distress. Appearance: He is not diaphoretic. HENT: Head: Normocephalic and atraumatic. Right Ear: Tympanic membrane, ear canal and external ear normal. No middle ear effusion. Tympanic membrane is not injected, erythematous, retracted or bulging. Left Ear: Tympanic membrane, ear canal and external ear normal. No middle ear effusion. Tympanic membrane is not injected, erythematous, retracted or bulging. Nose: Mucosal edema, congestion and rhinorrhea present. Right Sinus: No maxillary sinus tenderness or frontal sinus tenderness. Left Sinus: No maxillary sinus tenderness or frontal sinus tenderness. Mouth/Throat: Pharynx: Uvula midline. Postnasal drip present. No posterior oropharyngeal erythema. Eyes: Conjunctiva/sclera: Conjunctivae normal. Pupils: Pupils are equal, round, and reactive to light. Cardiovascular: Rate and Rhythm: Normal rate and regular rhythm. Heart sounds: Normal heart sounds. Pulmonary: Effort: Pulmonary effort is normal. No respiratory distress. Breath sounds: Normal breath sounds. No wheezing or rales. Musculoskeletal: Cervical back: Normal range of motion and neck supple. Lymphadenopathy: Head: Right side of head: No submental, submandibular, tonsillar, preauricular or posterior auricular adenopathy. Left side of head: No submental, submandibular, tonsillar, preauricular or posterior auricular adenopathy. Skin: General: Skin is dry. Neurological: Mental Status: He is alert and oriented to person, place, and time. General: No acute distress. HEENT: Nasal congestion observed. CV: Normal heart sounds auscultated. Resp: Normal breath sounds auscultated. History and Record Review External record(s) reviewed: prior labs/imaging and prior outpatient record. Findings from review of outpatient records: previous sinusitis Findings from review of prior labs/imaging: Previous Renal Function Panel Reviewed 11/05/2024: BUN 11; Creatinine 1.04; Estimated Glomerular Filtration Rate 83 Differential Diagnoses - viral uri is more likely for the following reason(s): suggested by HANDP - bacterial sinusitis` is less likely for the following reason(s): possible recurrent sinusitis, HANDP not suggestive ASSESSMENT/PLAN: 1. Sinus pressure - ICD9: 478.19, ICD10: J34.89 (primary diagnosis) 2. Sinus congestion - ICD9: 478.19, ICD10: R09.81 Probable viral uri, versus bacterial sinusitis due to improvement with doxycycline Comfort measures as discussed, if no improvement patient to start cefdinir Patient to follow up with ENT due to frequent sinusitis. Diagnosis and treatment plan were discussed and questions were answered to the patient's satisfaction. Pt acknowledged understanding of concepts and follow up plan. Specific signs and symptoms that would indicate the need for higher level of care were discussed in detail warranting prompt ER evaluation. Serena Herrera APRN.Luis Enrique Phillips (more content not included)... Normal [facility] CNOVon 01-10-2025 CNOV Office Visit ([facility]OUCA) ARSENIO VILLALOBOS ([id number]) 1965 M Date Time Provider Department 01/10/25 5:15 PM DAPHNEY WHEATLEY During your visit today, we recorded the following information about you: Temperature Pulse Respiration Blood pressure 97 degrees 100/minute 16/minute 108/76 Weight 96.2 kg Daphney Wheatley APRN.CNP 01/10/2025 5:47 PM Signed [facility] Subjective Arsenio Villalobos is a 59 year old male. Patient presents with: Pain, Sinus: Sinus pain and pressure, congestion, drainage and face hurts x 1 week HPI The patient is a 59-year-old male with a history of artificial heart valve on warfarin, presenting with sinus pressure, congestion, and drainage. Sinus Pressure and Congestion: - Sinus pressure, congestion, and drainage x1 week. - Woke up last night with facial throbbing and dental pain. - Taking Tylenol, Sudafed, and Afrin (once this week) with minimal relief. - Denies fever, sore throat, cough, dyspnea, or chest pain. - Denies significant ear pain or dizziness, but noted mild ear ache during severe headache last night. - History of occasional sinus infections. - Allergic to penicillin. Review of Systems Constitutional: (-) fever Head: (+) facial pain, (+) facial tenderness, (+) tooth pain Ears/Nose/Mouth/Throat: (+) nasal congestion, (+) nasal drainage, (+) sinus pressure, (-) sore throat, (-) ear pain Cardiovascular: (-) chest pain Respiratory: (-) shortness of breath, (-) cough Neurological: (-) dizziness Objective BP 108/76 Pulse 100 Temp 36.1 ?C (97 ?F) (Tympanic) Resp 16 Wt 96.2 kg (212 lb 1.3 oz) SpO2 97% BMI 31.32 kg/m? PAST MEDICAL HISTORY Diagnosis Date - Allergic rhinitis, cause unspecified - Aortic valve stenosis - Dysphagia 02/06/2015 - Hiatal hernia 02/06/2015 - HTN (hypertension) - Other specified disorder of gallbladder - Reflux esophagitis 02/06/2015 PAST SURGICAL HISTORY Procedure Laterality Date - COLONOSCOPY FLX DX W/COLLJ SPEC WHEN PFRMD 11/11/2012 [facility] - ESOPHAGOGASTRODUODENOSCOPY TRANSORAL DIAGNOSTIC 11/11/2012 EGD [facility] H-pylori negative - GASTROESOPHAG REFLX TEST W/TELEMTRY PH ELTRD 02/06/2015 - LAPS SURG CHOLECYSTECTOMY W/CHOLANGIOGRAPHY 10/28/2007 - PAST SURGICAL HISTORY OF 04/21/2008 2 cervical disc fusion - PAST SURGICAL HISTORY OF Bilateral hand, carpal tunnel - PAST SURGICAL HISTORY OF Right shoulder - PAST SURGICAL HISTORY OF 09/12/2020 AVR [facility] - PAST SURGICAL HISTORY OF 03/2020 urolift -prostate - PILONIDAL CYST/SINUS EXCISION - RDCTJ TORSION TSTIS W/WO FIXJ CLAT TESTIS 14 years old - TONSILLECTOMY AND ADENOIDECTOMY - VASECTOMY - VASECTOMY UNI/BI SPX W/POSTOP SEMEN EXAMS ALLERGIES Penicillins and Tegaderm Ag Mesh [Silver] MEDICATIONS - semaglutide, weight loss, (WEGOVY) 2.4 mg/0.75 mL pen injector Inject 2.4 mg under the skin one time a week. - atorvastatin (LIPITOR) 20 mg tablet Take 1 tablet by mouth once daily. - metoprolol succinate ER (TOPROL XL) 100 mg TAKE 1 TABLET BY MOUTH EVERY DAY - MULTIVITAMIN ORAL Take by mouth. - losartan (COZAAR) 100 mg tablet Take 1 tablet by mouth once daily. - tamsulosin (FLOMAX) 0.4 mg Take 0.4 mg by mouth once daily. - warfarin (COUMADIN) 5 mg tablet 7.5 mg every Mon, Fri; 5 mg all other days (Patient taking differently: 7.5 mg every Fri, Fri, Friday, 5 mg all other days) - pantoprazole DR (PROTONIX) 40 mg tablet Take 1 tablet by mouth as needed. - aspirin 81 mg chewable tablet 1 tablet by ORAL/FEEDING TUBE route once daily. - buPROPion SR (ZYBAN SR; WELLBUTRIN SR) 150 mg 12 hr tablet Take by mouth once daily. - p-ephed hcl/cetirizine hcl(ZYRTEC-D 5 MG-120 MG 12 HR TAB) Take one(1) tablet two(2) times daily. - ALBUTEROL 90 MCG/ACTUATION AEROSOL INHALER Inhale one(1) - two(2) puffs four(4) times a day as needed for wheezing and shortness of breath. - doxycycline monohydrate (MONODOX) 100 mg capsule Take 1 capsule by mouth two times a day. - fluticasone (FLONASE ALLERGY RELIEF) 50 mcg/actuation nasal spray Use 2 sprays in each nostril once daily. FAMILY HISTORY Problem Relation Age of Onset - Breast Cancer Mother - Hypertension Father - Alzheimer's Disease Father - No Known Problems Maternal Grandmother - No Known Problems Maternal Grandfather - Parkinson?s Disease Paternal Grandmother - No Known Problems Paternal Grandfather - Colon Cancer No Family History SOCIAL HISTORY[1] Physical Exam Vitals and nursing note reviewed. Constitutional: General: He is not in acute distress. Appearance: Normal appearance. He is not ill-appearing. HENT: Right Ear: Tympanic membrane, ear canal and external ear normal. Left Ear: Tympanic membrane, ear canal and external ear normal. Nose: Nasal tenderness, mucosal edema, congestion and rhinorrhea present. Mouth/Throat: Mouth: Mucous (more content not included)... Normal [facility] CNPNon 01-07-2025 CNPN Telephone (PHAMTE) ARSENIO VILLALOBOS ([id number]) 1965 M Date Time Provider Department 01/07/25 NIKOLAI CERNA During your visit today, we recorded the following information about you: Nikolai Cerna [facility] 01/07/2025 10:37 AM Signed [facility] Anticoagulation Episode Summary Anticoagulation Care Providers Provider Role Specialty Phone number Juan Willis MD Referring Cardiology [phone] Arsenio Villalobos is a 59 year old year old male patient being evaluated today for a Telemanagement visit. Patient is currently on the following anticoagulant(s) Warfarin. Labs Lab Results Component Value Date INR 1.7 01/07/2025 INR 2.6 (A) 12/20/2024 INR 1.8 12/02/2024 Lab Results Component Value Date HB 14.5 06/12/2022 HB 15.2 10/24/2020 HB 12.9 (L) 09/22/2020 Lab Results Component Value Date HCT 43.7 06/12/2022 HCT 46.6 10/24/2020 HCT 40.0 09/22/2020 Lab Results Component Value Date PLT 188 06/12/2022 PLT 286 10/24/2020 PLT 488 (H) 09/22/2020 Lab Results Component Value Date CREAT 1.04 11/05/2024 CREAT 1.05 06/12/2022 CREAT 1.18 10/24/2020 No components found for: TBILI3 Lab Results Component Value Date ALT 32 11/05/2024 ALT 27 06/12/2022 ALT 19 10/24/2020 Lab Results Component Value Date AST 34 11/05/2024 AST 29 06/12/2022 AST 24 10/24/2020 CrCl cannot be calculated (Unknown ideal weight.). ALLERGIES Allergen Reactions Penicillins Unknown childhood Tegaderm Ag Mesh [S* Rash, Swelling Indication for Warfarin: detention current use of anticoagulant H/o mechanical aortic valve replacement Anticoagulation Episode Summary Current INR goal: 1.5-2.0 Assessment: INR result of 1.7 is therapeutic Plan: Current Warfarin Dosing As of 01/07/2025 Full warfarin instructions: 2.5 mg every Fri, Sat; 5 mg all other days Sent [employer] message Advised patient to continue current weekly dose as noted above Next home INR check scheduled on 01/21/2025 Patient advised to call the PAC with any medication changes, bleeding/bruising concerns, recent changes in vitamin k consumption, if any procedures are coming up, if they have been ill or in the hospital, and if they have missed any doses of warfarin. Nikolai Cerna RPh Clinical Pharmacist, Pharmacy Anticoagulation Clinic Pharm[facility] Pager: [phone]. Nikolai Cerna RPh 01/21/2025 3:57 PM Signed Patient was due to test INR today. Will continue to monitor for results. Follow up in one week if no results received. Patient's INR Goal range is - 1.5-2.0 PT INR (no units) Date Value 03/14/2022 1.4 biotel 10/12/2021 2.7 07/30/2021 3.6 biotel INR Home CoaguChek (no units) Date Value 01/07/2025 1.7 12/20/2024 2.6 12/02/2024 1.8 Patient is in titration phase - No Patient has dosing provided until next INR - Yes Patient is on an injectable anticoagulant - No Dayanna Lane Sara, RPh 01/28/2025 4:08 PM Signed Arsenio Villalobos was sent [employer] message and reminded to test INR today or as soon as possible. Nikolai Cerna RPh Allergies As of Date: 01/07/2025 Noted Allergy Reaction PENICILLINS 10/22/2007 16 - Unknown Comments: childhood TEGADERM AG MESH (SILVER) 09/06/2020 2 - Rash 7 - Swelling Date Reviewed: 09/29/2024 Reviewed by: Mary Luna APRN.LIFT OPERATOR - Fully Assessed Reason for Visit: Anticoagulation Telephone Fu [148] Cmt: INR Home Test Result Primary Visit Diagnosis:detention current use of anticoagulant [Z79.01] Other Visit Diagnosis:H/O mechanical aortic valve replacement [Z95.2] Prescriptions as of 01/28/2025 - doxycycline monohydrate (MONODOX) 100 mg capsule Take 1 capsule by mouth two times a day. - fluticasone (FLONASE ALLERGY RELIEF) 50 mcg/actuation nasal spray Use 2 sprays in each nostril once daily. - semaglutide, weight loss, (WEGOVY) 2.4 mg/0.75 mL pen injector Inject 2.4 mg under the skin one time a week. - atorvastatin (LIPITOR) 20 mg tablet Take 1 tablet by mouth once daily. - metoprolol succinate ER (TOPROL XL) 100 mg TAKE 1 TABLET BY MOUTH EVERY DAY - MULTIVITAMIN ORAL Take by mouth. - losartan (COZAAR) 100 mg tablet Take 1 tablet by mouth once daily. - tamsulosin (FLOMAX) 0.4 mg Take 0.4 mg by mouth once daily. - warfarin (COUMADIN) 5 mg tablet 7.5 mg every Mon, Fri; 5 mg all other days - pantoprazole DR (PROTONIX) 40 mg tablet Take 1 tablet by mouth as needed. - aspirin 81 mg chewable tablet 1 tablet by ORAL/FEEDING TUBE route once daily. - buPROPion SR (ZYBAN SR; WELLBUTRIN SR) 150 mg 12 hr tablet Take by mouth once daily. - p-ephed hcl/cetirizine hcl(ZYRTEC-D 5 MG-120 MG 12 HR TAB) Take one(1) tablet two(2) times daily. - ALBUTEROL 90 MCG/ACTUATION AEROSOL INHALER Inhale one(1) - two(2) puffs four(4) times a day as needed for wheezing a (more content not included)... Normal [facility] 12-21-2024 [facility] RGISELDAARSENIO DEAN ([id number]) 1965 M Date Time Provider Department 12/21/24 LUCITA ALBA During your visit today, we recorded the following information about you: [facility]20[facility] 8:45 AM Signed [facility] Anticoagulation Episode Summary Anticoagulation Care Providers Provider Role Specialty Phone number Juan Willis MD Referring Cardiology [phone] Arsenio Villalobos is a 59 year old year old male patient being evaluated today for a Telemanagement visit. Patient is currently on the following anticoagulant(s) Warfarin. Labs Lab Results Component Value Date INR 2.6 (A) 12/20/2024 INR 1.8 12/02/2024 INR 2.0 11/19/2024 Lab Results Component Value Date HB 14.5 06/12/2022 HB 15.2 10/24/2020 HB 12.9 (L) 09/22/2020 Lab Results Component Value Date HCT 43.7 06/12/2022 HCT 46.6 10/24/2020 HCT 40.0 09/22/2020 Lab Results Component Value Date PLT 188 06/12/2022 PLT 286 10/24/2020 PLT 488 (H) 09/22/2020 Lab Results Component Value Date CREAT 1.04 11/05/2024 CREAT 1.05 06/12/2022 CREAT 1.18 10/24/2020 No components found for: TBILI3 Lab Results Component Value Date ALT 32 11/05/2024 ALT 27 06/12/2022 ALT 19 10/24/2020 Lab Results Component Value Date AST 34 11/05/2024 AST 29 06/12/2022 AST 24 10/24/2020 CrCl cannot be calculated (Unknown ideal weight.). ALLERGIES Allergen Reactions Penicillins Unknown childhood Tegaderm Ag Mesh [S* Rash, Swelling Indication for Warfarin: Anticoagulation Episode Summary Current INR goal: 1.5-2.0 Assessment: INR result of 2.6 is SUPRAtherapeutic due to: Decreased vitamin k intake Plan: Current Warfarin Dosing As of 12/21/2024 Full warfarin instructions: 12/21: 2.5 mg; Otherwise 2.5 mg every Fri, Sat; 5 mg all other days Called and spoke to patient/caregiver Advised patient to decrease dose for 1 day only then resume weekly regimen as noted above Next home INR check scheduled on 01/04/2025 Patient verbalizes understanding of the plan. Patient advised to call the PAC with any medication changes, bleeding/bruising concerns, recent changes in vitamin k consumption, if any procedures are coming up, if they have been ill or in the hospital, and if they have missed any doses of warfarin. Lucita Alba RPh Clinical Pharmacist, Pharmacy Anticoagulation Clinic Pharm[facility] Pager: [phone]. Lucita Alba RPh 01/04/2025 2:15 PM Signed Patient was due to test INR today. Will continue to monitor for results. Follow up in one week if no results received. Patient's INR Goal range is - 1.5-2.0 PT INR (no units) Date Value 03/14/2022 1.4 biotel 10/12/2021 2.7 07/30/2021 3.6 biotel INR Home CoaguChek (no units) Date Value 12/20/2024 2.6 12/02/2024 1.8 11/19/2024 2.0 Patient is in titration phase - No Patient has dosing provided until next INR - Yes Patient is on an injectable anticoagulant - No Lucita Alba RPh Allergies As of Date: 12/21/2024 Noted Allergy Reaction PENICILLINS 10/22/2007 16 - Unknown Comments: childhood TEGADERM AG MESH (SILVER) 09/06/2020 2 - Rash 7 - Swelling Date Reviewed: 09/29/2024 Reviewed by: Mary Luna APRN.LIFT OPERATOR - Fully Assessed Reason for Visit: Anticoagulation Telephone Fu [148] Cmt: Home INR result Prescriptions as of 01/04/2025 - semaglutide, weight loss, (WEGOVY) 2.4 mg/0.75 mL pen injector Inject 2.4 mg under the skin one time a week. - atorvastatin (LIPITOR) 20 mg tablet Take 1 tablet by mouth once daily. - metoprolol succinate ER (TOPROL XL) 100 mg TAKE 1 TABLET BY MOUTH EVERY DAY - MULTIVITAMIN ORAL Take by mouth. - losartan (COZAAR) 100 mg tablet Take 1 tablet by mouth once daily. - tamsulosin (FLOMAX) 0.4 mg Take 0.4 mg by mouth once daily. - warfarin (COUMADIN) 5 mg tablet 7.5 mg every Mon, Fri; 5 mg all other days - pantoprazole DR (PROTONIX) 40 mg tablet Take 1 tablet by mouth as needed. - aspirin 81 mg chewable tablet 1 tablet by ORAL/FEEDING TUBE route once daily. - buPROPion SR (ZYBAN SR; WELLBUTRIN SR) 150 mg 12 hr tablet Take by mouth once daily. - p-ephed hcl/cetirizine hcl(ZYRTEC-D 5 MG-120 MG 12 HR TAB) Take one(1) tablet two(2) times daily. - ALBUTEROL 90 MCG/ACTUATION AEROSOL INHALER Inhale one(1) - two(2) puffs four(4) times a day as needed for wheezing and shortness of breath. Problem List As Of Date 12/21/2024 Noted Resolved Esophageal obstruction [K22.2] 12/31/2010 Esophageal obstruction due to food impaction [T*01/19/2015 Chronic antral gastritis [K29.50] 02/16/2015 Gastroesophageal reflux disease with esophagiti*02/16/2015 Obesity, Class I, BMI 30-34.9 [E66.811] 09/08/2020 Essential hypertension [I10] 09/08/2020 Severe aortic stenosis [I35.0] 09/08/2020 Discharge planning (more content not included)... [facility] A[facility] ([id number]) 1965 M Date Time Provider Department 12/02/24 LYDIA HANLEY During your visit today, we recorded the following information about you: Lydia Hanley, [facility] 12/02/2024 10:12 AM Signed [facility] Anticoagulation Episode Summary Anticoagulation Care Providers Provider Role Specialty Phone number Juan Willis MD Referring Cardiology [phone] Arsenio Villalobos is a 59 year old year old male patient being evaluated today for a Telemanagement visit. Patient is currently on the following anticoagulant(s) Warfarin. Labs Lab Results Component Value Date INR 1.8 12/02/2024 INR 2.0 11/19/2024 INR 2.8 (A) 11/10/2024 Lab Results Component Value Date HB 14.5 06/12/2022 HB 15.2 10/24/2020 HB 12.9 (L) 09/22/2020 Lab Results Component Value Date HCT 43.7 06/12/2022 HCT 46.6 10/24/2020 HCT 40.0 09/22/2020 Lab Results Component Value Date PLT 188 06/12/2022 PLT 286 10/24/2020 PLT 488 (H) 09/22/2020 Lab Results Component Value Date CREAT 1.04 11/05/2024 CREAT 1.05 06/12/2022 CREAT 1.18 10/24/2020 No components found for: TBILI3 Lab Results Component Value Date ALT 32 11/05/2024 ALT 27 06/12/2022 ALT 19 10/24/2020 Lab Results Component Value Date AST 34 11/05/2024 AST 29 06/12/2022 AST 24 10/24/2020 CrCl cannot be calculated (Unknown ideal weight.). 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 H/o mechanical aortic valve replacement Anticoagulation Episode Summary Current INR goal: 1.5-2.0 Assessment: INR result of 1.8 is therapeutic Plan: Current Warfarin Dosing As of 12/02/2024 Full warfarin instructions: 2.5 mg every Fri, Sat; 5 mg all other days Sent [employer] message Advised patient to continue current weekly dose as noted above Next home INR check scheduled on 12/16/2024 Patient advised to call the PAC with any medication changes, bleeding/bruising concerns, recent changes in vitamin k consumption, if any procedures are coming up, if they have been ill or in the hospital, and if they have missed any doses of warfarin. Lydia Hanley [facility] Clinical Pharmacist, Pharmacy Anticoagulation Clinic Pharmacy Anticoagulation Clinic Pager: [phone]. Lydia Hanley [facility] 12/16/2024 1:31 PM Signed Patient was due to test INR today. Will continue to monitor for results. Follow up in one week if no results received. Patient's INR Goal range is - 1.5-2.0 PT INR (no units) Date Value 03/14/2022 1.4 biotel 10/12/2021 2.7 07/30/2021 3.6 biotel INR Home CoaguChek (no units) Date Value 12/02/2024 1.8 11/19/2024 2.0 11/10/2024 2.8 Patient is in titration phase - No Patient has dosing provided until next INR - Yes Patient is on an injectable anticoagulant - No Lydia Hanley [facility] Allergies As of Date: 12/02/2024 Noted Allergy Reaction PENICILLINS 10/22/2007 16 - Unknown Comments: childhood TEGADERM AG MESH (SILVER) 09/06/2020 2 - Rash 7 - Swelling Date Reviewed: 09/29/2024 Reviewed by: Mary Luna APRN.LIFT OPERATOR - Fully Assessed Reason for Visit: Anticoagulation Telephone Fu [148] Cmt: Home INR Primary Visit Diagnosis:detention current use of anticoagulant [Z79.01] Other Visit Diagnosis:H/O mechanical aortic valve replacement [Z95.2] Prescriptions as of 12/16/2024 - semaglutide, weight loss, (WEGOVY) 2.4 mg/0.75 mL pen injector Inject 2.4 mg under the skin one time a week. - atorvastatin (LIPITOR) 20 mg tablet Take 1 tablet by mouth once daily. - metoprolol succinate ER (TOPROL XL) 100 mg TAKE 1 TABLET BY MOUTH EVERY DAY - MULTIVITAMIN ORAL Take by mouth. - losartan (COZAAR) 100 mg tablet Take 1 tablet by mouth once daily. - tamsulosin (FLOMAX) 0.4 mg Take 0.4 mg by mouth once daily. - warfarin (COUMADIN) 5 mg tablet 7.5 mg every Mon, Fri; 5 mg all other days - pantoprazole DR (PROTONIX) 40 mg tablet Take 1 tablet by mouth as needed. - aspirin 81 mg chewable tablet 1 tablet by ORAL/FEEDING TUBE route once daily. - buPROPion SR (ZYBAN SR; WELLBUTRIN SR) 150 mg 12 hr tablet Take by mouth once daily. - p-ephed hcl/cetirizine hcl(ZYRTEC-D 5 MG-120 MG 12 HR TAB) Take one(1) tablet two(2) times daily. - ALBUTEROL 90 MCG/ACTUATION AEROSOL INHALER Inhale one(1) - two(2) puffs four(4) times a day as needed for wheezing and shortness of breath. Problem List As Of Date 12/02/2024 Noted Resolved Esophageal obstruction [K22.2] 12/31/2010 Esophageal obstruction due to food impaction [T*01/19/2015 Chronic antral gastritis [K29.50] 02/16/2015 Gastroesophageal reflux disease with esophagiti*02/16/2015 Obesity, Class I, BMI 30-34.9 [E66.811] 09/08/2020 E (more content not included)... Normal [facility] 11-19-2024 CNPN Telephone (PHAMTE) ARSENIO VILLALOBOS ([id number]) 1965 M Date Time Provider Department 11/19/24 LUCITA ALBA During your visit today, we recorded the following information about you: Lucita Alba sommer 11/19/2024 10:18 AM Signed [facility] Anticoagulation Episode Summary Anticoagulation Care Providers Provider Role Specialty Phone number Juan Willis MD Referring Cardiology [phone] Arsenio Villalobos is a 59 year old year old male patient being evaluated today for a Telemanagement visit. Patient is currently on the following anticoagulant(s) Warfarin. Labs Lab Results Component Value Date INR 2.0 11/19/2024 INR 2.8 (A) 11/10/2024 INR 3.0 (A) 11/03/2024 Lab Results Component Value Date HB 14.5 06/12/2022 HB 15.2 10/24/2020 HB 12.9 (L) 09/22/2020 Lab Results Component Value Date HCT 43.7 06/12/2022 HCT 46.6 10/24/2020 HCT 40.0 09/22/2020 Lab Results Component Value Date PLT 188 06/12/2022 PLT 286 10/24/2020 PLT 488 (H) 09/22/2020 Lab Results Component Value Date CREAT 1.04 11/05/2024 CREAT 1.05 06/12/2022 CREAT 1.18 10/24/2020 No components found for: TBILI3 Lab Results Component Value Date ALT 32 11/05/2024 ALT 27 06/12/2022 ALT 19 10/24/2020 Lab Results Component Value Date AST 34 11/05/2024 AST 29 06/12/2022 AST 24 10/24/2020 CrCl cannot be calculated (Unknown ideal weight.). ALLERGIES Allergen Reactions Penicillins Unknown childhood Tegaderm Ag Mesh [S* Rash, Swelling Indication for Warfarin: Anticoagulation Episode Summary Current INR goal: 1.5-2.0 Assessment: INR result of 2 is therapeutic Plan: Current Warfarin Dosing As of 11/19/2024 Full warfarin instructions: 2.5 mg every Fri, Sat; 5 mg all other days Called and spoke to patient/caregiver Advised patient to continue current weekly dose as noted above Next home INR check scheduled on 12/02/2024 Patient verbalizes understanding of the plan. Patient advised to call the PAC with any medication changes, bleeding/bruising concerns, recent changes in vitamin k consumption, if any procedures are coming up, if they have been ill or in the hospital, and if they have missed any doses of warfarin. Lucita Alba [facility] Clinical Pharmacist, Pharmacy Anticoagulation Clinic Pharmacy Anticoagulation Clinic Pager: [phone]. Allergies As of Date: 11/19/2024 Noted Allergy Reaction PENICILLINS 10/22/2007 16 - Unknown Comments: childhood TEGADERM AG MESH (SILVER) 09/06/2020 2 - Rash 7 - Swelling Date Reviewed: 09/29/2024 Reviewed by: Mary Luna APRN.LIFT OPERATOR - Fully Assessed Reason for Visit: Anticoagulation Telephone Fu [148] Cmt: Home INR result Prescriptions as of 11/19/2024 - semaglutide, weight loss, (WEGOVY) 2.4 mg/0.75 mL pen injector Inject 2.4 mg under the skin one time a week. - atorvastatin (LIPITOR) 20 mg tablet Take 1 tablet by mouth once daily. - metoprolol succinate ER (TOPROL XL) 100 mg TAKE 1 TABLET BY MOUTH EVERY DAY - MULTIVITAMIN ORAL Take by mouth. - losartan (COZAAR) 100 mg tablet Take 1 tablet by mouth once daily. - tamsulosin (FLOMAX) 0.4 mg Take 0.4 mg by mouth once daily. - warfarin (COUMADIN) 5 mg tablet 7.5 mg every Mon, Fri; 5 mg all other days - pantoprazole DR (PROTONIX) 40 mg tablet Take 1 tablet by mouth as needed. - aspirin 81 mg chewable tablet 1 tablet by ORAL/FEEDING TUBE route once daily. - buPROPion SR (ZYBAN SR; WELLBUTRIN SR) 150 mg 12 hr tablet Take by mouth once daily. - p-ephed hcl/cetirizine hcl(ZYRTEC-D 5 MG-120 MG 12 HR TAB) Take one(1) tablet two(2) times daily. - ALBUTEROL 90 MCG/ACTUATION AEROSOL INHALER Inhale one(1) - two(2) puffs four(4) times a day as needed for wheezing and shortness of breath. Problem List As Of Date 11/19/2024 Noted Resolved Esophageal obstruction [K22.2] 12/31/2010 Esophageal obstruction due to food impaction [T*01/19/2015 Chronic antral gastritis [K29.50] 02/16/2015 Gastroesophageal reflux disease with esophagiti*02/16/2015 Obesity, Class I, BMI 30-34.9 [E66.811] 09/08/2020 Essential hypertension [I10] 09/08/2020 Severe aortic stenosis [I35.0] 09/08/2020 Discharge planning issues [Z75.8] 09/08/2020 Preop testing [Z01.818] 09/08/2020 On mechanically assisted ventilation (HCC) [Z99*09/12/2020 09/13/2020 Postoperative pain [G89.18] 09/12/2020 Stress hyperglycemia [R73.9] 09/12/2020 09/16/2020 Pleural effusion [J90] 09/13/2020 High bilirubin [R17] 09/14/2020 Liver enzyme elevation [R74.8] 09/14/2020 Encounter for support and coordination of trans*09/15/2020 Encounter for monitoring warfarin therapy [Z51.*09/16/2020 detention current use of anticoagulant [Z79.01] 05/31/2021 H/O mechanical aortic valve replacement [Z95.2] 05/31/2021 Bicuspid aortic valve (HCC) [Q23.81] 06/13/2022 Encount (more content not included)... Normal [facility] ECHOon 11-17-2024 Echocardiography Echocardiography Rep ort: Transthoracic Echo [place] Office Date of service: 11/17/2024 2:22:25 PM WORKER Ordering physician: Mary LUNA Exam indication: s/p AVR Technologist: Sandee Navarro RDCS Interpreting physician: Scot Srivastava MD PATIENT: Name: MR. ARSENIO VILLALOBOS : 1965 Age: 59 years Gender: M History of hypertension, congenital heart disease and valvular heart disease. Previous cardiovascular interventions: Aortic valve replacement (09/12/2020) Primary rhythm: sinus. Height: 175.30 cm BSA: 2.15 m Weight: 94.80 kg BMI: 30.8 kg/m Heart rate 97 bpm Color Doppler was utilized to interrogate the cardiac valves assessed and spectral Doppler was utilized to determine the flow velocities and pressure gradients reported in this exam. Myocardial strain analysis was performed in this exam to aid in the assessment of cardiac function. MEASUREMENTS: Value Indexed Normal Max aortic dimension 3.4 cm Ao < 3.8 Left atrial volume 45 ml (Cristina's) 22 ml/m Latha <= 34 LV ID (diastole) 4.8 cm (2D) 2.24 cm/m LV ID (systole) 3.5 cm (2D) 1.63 cm/m IVS, leaflet tips 1.0 cm (2D) Posterior wall thickness 0.9 cm (2D) Left ventricular mass 161 g (2D) 75 g/m Global peak long strain -16.4 % LV stroke volume 62 ml (2D biplane) LV end diastolic volume 109 ml (2D biplane) 50.8 ml/m 34<=EDVi<75 LV end systolic volume 48 ml (2D biplane) 22.2 ml/m Ejection Fraction 56 % (2D biplane) EF > 52 FINDINGS: LEFT VENTRICLE The left ventricle is normal in size. Left ventricular systolic function is normal. Global LV myocardial strain is normal. Normal left ventricular diastolic function. Mitral annular lateral E/e': 6.4. Mitral annular septal E/e': 6.9. Wall Motion: All scored segments are normal. RIGHT VENTRICLE The right ventricle is normal in size. Right ventricular systolic function is normal. RV systolic tissue Doppler velocity is 12.5 cm/s. Tricuspid annular displacement is 1.6 cm. Estimated right ventricular systolic pressure is not reported due to an insufficient tricuspid regurgitation signal. Estimated right atrial pressure is 3 mmHg based on IVC assessment. LEFT ATRIUM The left atrial cavity is normal in size. RIGHT ATRIUM The right atrial cavity is normal in size. Inferior Vena Cava: The inferior vena cava appears normal measuring 1.3 cm. The vessel decreases greater than 50 percent with inspiration. MITRAL VALVE There is no mitral valve regurgitation. There is mild thickening. The pressure half time is 36 msec. The peak mitral E/A ratio is 0.75. The average mitral E/e' ratio is 6.6. The mitral flow deceleration time is 124 msec. TRICUSPID VALVE The tricuspid valve leaflets are structurally normal. There is trace tricuspid valve regurgitation. AORTIC VALVE On-X prosthetic valve size #25. There is trace aortic valve regurgitation. The peak gradient is 14 mmHg (peak velocity = 189.0 cm/s). The mean gradient is 7 mmHg. The LVOT mean velocity is 56.6 cm/s. The aortic VTI is 34.1 cm. The mean velocity in the aortic valve is 123.0 cm/s. The dimensionless valve index is 0.49. PULMONIC VALVE The pulmonic valve cusps are structurally normal. There is trace pulmonic valve regurgitation. AORTA The visualized aorta is normal in size. Measurements - Mid ascending aorta 3.4 cm. Distal ascending aorta 3.1 cm. PULMONARY ARTERIES The pulmonary arteries are unseen or not interrogated. INTERATRIAL SEPTUM There is no evidence of intracardiac shunting as detected by Doppler. INTERVENTRICULAR SEPTUM There is abnormal motion of the interventricular septum secondary to prior cardiac surgery. There is no flow through the interventricular septum as detected by Doppler. PERICARDIUM There is no pericardial effusion. There is an epicardial fat pad. CONCLUSIONS: - Exam indication: s/p AVR - The left ventricle is normal in size. Left ventricular systolic function is normal. EF = 56 5% (2D biplane) Normal left ventricular diastolic function. - The right ventricle is normal in size. Right ventricular systolic function is normal. - On-X prosthetic aortic valve (size #25). There is trace aortic valve regurgitation. The peak gradient is 14 mmHg, the mean gradient is 7 mmHg and the dimensionless valve index is 0.49. Prior AV peak/mean gradients of 9/4mmHg. - Exam was compared with the prior CC echocardiographic exam performed on 07/16/2023. There is no significant change. * * * Final * * * CC [employer] : [id number] [email or web address] Normal [facility] HIP, UNI W/ Pelvis 2-3 Views on 11-11-2024 HIP, UNI W/ Pelvis 2-3 Views [facility] [address] [place] [address] [id number] HIP, UNI W/ Pelvis 2-3 Views MR#: [id number] Acct: [id number] Name: ARSENIO VILLALOBOS Rep #: [id number] : 1965 M 59 From: Vinay Steven MD PCP: Dr. Gilbert Vanegas MD Status: REG CLI Study: HIP, UNI W/ Pelvis 2-3 Views Date of Exam: Exam# [id number] Ordering Dr: Gilbert Vanegas MD PROCEDURE: HIP, UNI W/ PELVIS 2-3 VIEWS 11/11/2024 REASON FOR EXAM: LEFT HIP PAIN, LEFT HIP TECHNIQUE: HIP, UNI W/ PELVIS 2-3 VIEWS COMPARISON: No FINDINGS: Prior prostate surgery. Intact pelvic ring. Mild left hip osteoarthritis. No acute bone or soft tissue pathology. RAD/HIP, UNI W/ Pelvis 2-3 Views IMPRESSION: Mild left hip osteoarthritis. Reading Location: [place] [address] CC: Dr. Gilbert Vanegas MD Geodesist: Signed Normal [facility] PSA,Total- Diagnosticon 10-20 PSA, DIAGNOSTIC 4.64 ng/mL High 0.00-4.00 [facility] Comment on above: Result Comment: This test was performed using the Rachelle SnapNames tPSA method. Measured values of a patient??sample can vary depending on the testing procedure used. PSA values determined on patient samples by different testing procedures cannot be used interchangeably. If there is a change in PSA assays while monitoring therapy, sequential testing should be performed to confirm baseline values. Performed By: #### L [phone] #### [facility] [address] [place], [address] [facility] 11-10-2024 [facility] Telephone (PHARAV) ARSENIO VILLALOBOS ([id number]) 1965 M Date Time Provider Department 11/10/24 MONALISA MELENDEZ PHADOUG During your visit today, we recorded the following information about you: Monalisa Melendez [facility] 11/10/2024 8:20 AM Signed [facility] Anticoagulation Episode Summary Anticoagulation Care Providers Provider Role Specialty Phone number Juan Willis MD Referring Cardiology [phone] Arsenio Villalobos is a 59 year old year old male patient being evaluated today for a Telemanagement visit. Patient is currently on the following anticoagulant(s) Warfarin. Labs Lab Results Component Value Date INR 2.8 (A) 11/10/2024 INR 3.0 (A) 11/03/2024 INR 1.7 10/21/2024 Lab Results Component Value Date HB 14.5 06/12/2022 HB 15.2 10/24/2020 HB 12.9 (L) 09/22/2020 Lab Results Component Value Date HCT 43.7 06/12/2022 HCT 46.6 10/24/2020 HCT 40.0 09/22/2020 Lab Results Component Value Date PLT 188 06/12/2022 PLT 286 10/24/2020 PLT 488 (H) 09/22/2020 Lab Results Component Value Date CREAT 1.04 11/05/2024 CREAT 1.05 06/12/2022 CREAT 1.18 10/24/2020 No components found for: TBILI3 Lab Results Component Value Date ALT 32 11/05/2024 ALT 27 06/12/2022 ALT 19 10/24/2020 Lab Results Component Value Date AST 34 11/05/2024 AST 29 06/12/2022 AST 24 10/24/2020 CrCl cannot be calculated (Unknown ideal weight.). 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 He started lipitor a few weeks ago. Plan: Current Warfarin Dosing As of 11/10/2024 Full warfarin instructions: 2.5 mg every Fri, Sat; 5 mg all other days Called and spoke to patient/caregiver Advised patient to decrease total weekly regimen Next home INR check scheduled on 11/17/2024 Patient verbalizes understanding of the plan. Patient denies need for refills. Patient advised to call the PAC with any medication changes, bleeding/bruising concerns, recent changes in vitamin k consumption, if any procedures are coming up, if they have been ill or in the hospital, and if they have missed any doses of warfarin. Monalisa Melendez RPh Clinical Pharmacist, Pharmacy Anticoagulation Clinic Pharmacy [facility] Clinic Pager: [phone]. Monalisa Melendez RPh 11/17/2024 11:48 AM Signed Patient was due to test INR today will continue to monitor for results. Follow up in one week if no results received. Patient's INR Goal range is - 1.5-2.0 PT INR (no units) Date Value 03/14/2022 1.4 biotel 10/12/2021 2.7 07/30/2021 3.6 biotel INR Home CoaguChek (no units) Date Value 11/10/2024 2.8 11/03/2024 3.0 10/21/2024 1.7 Patient is in titration phase - No Patient has dosing provided until next INR - Yes Patient is on an injectable anticoagulant - No Monalisa Melendez PharmD Pharmacy Anticoagulation Clinic Allergies As of Date: 11/10/2024 Noted Allergy Reaction PENICILLINS 10/22/2007 16 - Unknown Comments: childhood TEGADERM AG MESH (SILVER) 09/06/2020 2 - Rash 7 - Swelling Date Reviewed: 09/29/2024 Reviewed by: Mary Luna APRN.LIFT OPERATOR - Fully Assessed Reason for Visit: Anticoagulation Telephone Fu [148] Cmt: Home INR result Primary Visit Diagnosis:detention current use of anticoagulant [Z79.01] Other Visit Diagnosis:H/O mechanical aortic valve replacement [Z95.2] Prescriptions as of 11/17/2024 - semaglutide, weight loss, (WEGOVY) 2.4 mg/0.75 mL pen injector Inject 2.4 mg under the skin one time a week. - atorvastatin (LIPITOR) 20 mg tablet Take 1 tablet by mouth once daily. - metoprolol succinate ER (TOPROL XL) 100 mg TAKE 1 TABLET BY MOUTH EVERY DAY - MULTIVITAMIN ORAL Take by mouth. - losartan (COZAAR) 100 mg tablet Take 1 tablet by mouth once daily. - tamsulosin (FLOMAX) 0.4 mg Take 0.4 mg by mouth once daily. - warfarin (COUMADIN) 5 mg tablet 7.5 mg every Mon, Fri; 5 mg all other days - pantoprazole DR (PROTONIX) 40 mg tablet Take 1 tablet by mouth as needed. - aspirin 81 mg chewable tablet 1 tablet by ORAL/FEEDING TUBE route once daily. - buPROPion SR (ZYBAN SR; WELLBUTRIN SR) 150 mg 12 hr tablet Take by mouth once daily. - p-ephed hcl/cetirizine hcl(ZYRTEC-D 5 MG-120 MG 12 HR TAB) Take one(1) tablet two(2) times daily. - ALBUTEROL 90 MCG/ACTUATION AEROSOL INHALER Inhale one(1) - two(2) puffs four(4) times a day as needed for wheezing and shortness of breath. Problem List As Of Date 11/10/2024 Noted Resolved Esophageal obstruction [K22.2] 01/01/20 (more content not included)... Normal [facility] Comprehensive metabolic 2000 panelon 11-05-2024 Albumin [Mass/Vol] 4.2 g/dL Normal 3.9-4.9 [facility] Comment on above: Order Comment: Speci men Type: BLOOD SPECIMENOrdering Facility: [facility] Address: [address] [place] [address] Performed By: #### 2 4323-8 ####[facility] [id number] [place] [address] [place] ALP [Catalytic activity/Vol] 71 U/L Normal 38-113 [facility] Comment on above: Order Comment: Speci men Type: BLOOD SPECIMENOrdering Facility: [facility] Address: [address] [place] [address] Performed By: #### 2 4323-8 ####[facility] [id number] [place] [address] [place] ALT [Catalytic activity/Vol] 32 U/L Normal 10-54 [facility] Comment on above: Order Comment: Speci men Type: BLOOD SPECIMENOrdering Facility: [facility] Address: [address] [place] [address] Performed By: #### 2 4323-8 ####[facility] [id number] [place] [address] [place] Anion gap [Moles/Vol] 12 mmol/L Normal 8-15 [facility] Comment on above: Order Comment: Speci men Type: BLOOD SPECIMENOrdering Facility: [facility] Address: [address] [place] [address] Performed By: #### 2 4323-8 ####[facility] JONYA [id number] [place] [address] [place] AST [Catalytic activity/Vol] 34 U/L Normal 14-40 [facility] Comment on above: Order Comment: Speci men Type: BLOOD SPECIMENOrdering Facility: [facility] Address: [address] [place] [address] Performed By: #### 2 4323-8 ####[facility]CR[facility]OA [id number] [place] [address] [place] Bilirubin [Mass/Vol] 0.9 mg/dL Normal 0.2-1.3 [facility] Comment on above: Order Comment: Speci men Type: BLOOD SPECIMENOrdering Facility: [facility] Address: [address] [place] [address] Performed By: #### 2 4323-8 ####[facility] [id number] [place] [address] [place] Calcium [Mass/Vol] 9.3 mg/dL Normal 8.5-10.2 [facility] Comment on above: Order Comment: Speci men Type: BLOOD SPECIMENOrdering Facility: [facility] Address: [address] [place] [address] Performed By: #### 2 4323-8 ####[facility] [id number] [place] [address] [place] Chloride [Moles/Vol] 105 mmol/L Normal 98-107 [facility] Comment on above: Order Comment: Speci men Type: BLOOD SPECIMENOrdering Facility: [facility] Address: [address] [place] [address] Performed By: #### 2 4323-8 ####[facility] MILLTOWNCLIA [id number] [place] [address] [place] CO2 [Moles/Vol] 21 mmol/L Low 22-30 [facility] Comment on above: Order Comment: Speci men Type: BLOOD SPECIMENOrdering Facility: [facility] Address: [address] [place] [address] Performed By: #### 2 4323-8 ####[facility]IT[facility] [id number] [place] [address] [place] Creatinine [Mass/Vol] 1.04 mg/dL Normal 0.73-1.22 [facility] Comment on above: Order Comment: Speci men Type: BLOOD SPECIMENOrdering Facility: [facility] Address: [address] [place] [address] Performed By: #### 2 4323-8 ####[facility] [id number] [place] [address] [place] eGFRcr SerPlBld CKD-EPI 2020 83 mL/min/1.73m??? Normal >=60 [facility] Comment on above: Order Comment: Speci men Type: BLOOD SPECIMENOrdering Facility: [facility] Address: [address] [place] [address] Result Comment: Mariza mated Glomerular Filtration Rate (eGFR) is calculated using the 2020 CKD-EPI creatinine equation. This equation utilizes serum creatinine, sex, and age as parameters. The creatinine assay has traceable calibration to isotope dilution-mass spectrometry. Refer to KDIGO guidelines for clinical interpretation. In patients with unstable renal function, e.g. those with acute kidney injury, the eGFR may not accurately reflect actual GFR. Performed By: #### 2 4323-8 ####[facility] THEODOREWNCLIA [id number] [place] [address] [place] Glucose [Mass/Vol] 103 mg/dL High 74-99 [facility] Comment on above: Order Comment: Speci men Type: BLOOD SPECIMENOrdering Facility: [facility] Address: [address] [place], [place] [id number] Result Comment: The [place] Diabetes Association (ADA) provides guidance for cutoff values for fasting glucose and random glucose. The ADA defines fasting as no caloric intake for at least 8 hours. Fasting plasma glucose results between 100 to 125 mg/dL indicate increased risk for diabetes (prediabetes). Fasting plasma glucose results greater than or equal to 126 mg/dL meet the criteria for diagnosis of diabetes. In the absence of unequivocal hyperglycemia, results should be confirmed by repeat testing. In a patient with classic symptoms of hyperglycemia or hyperglycemic crisis, random plasma glucose results greater than or equal to 200 mg/dL meet the criteria for diagnosis of diabetes. Reference: Standards of Medical Care in Diabetes 2016, [place] [employer] Association. Diabetes Care. 2016.39(Suppl 1). Performed By: #### 2 4323-8 ####[facility] [id number] [place] [address] [place] Potassium [Moles/Vol] 3.8 mmol/L Normal 3.7-5.1 [facility] Comment on above: Order Comment: Speci men Type: BLOOD SPECIMENOrdering Facility: [facility] Address: [address] [place], [place] [address] Performed By: #### 2 4323-8 ####[facility] [id number] [place] [address] [place] Protein [Mass/Vol] 6.6 g/dL Normal 6.3-8.0 [facility] Comment on above: Order Comment: Speci men Type: BLOOD SPECIMENOrdering Facility: [facility] Address: [address] [place] [address] Performed By: #### 2 4323-8 ####[facility] [id number] [place] [address] [place] Sodium [Moles/Vol] 138 mmol/L Normal 136-144 [facility] Comment on above: Order Comment: Speci men Type: BLOOD SPECIMENOrdering Facility: [facility] Address: [address] [place] [id number] Performed By: #### 2 4323-8 ####[facility] DHAL[facility]WAL [id number] [address] [place] Urea nitrogen [Mass/Vol] 11 mg/dL Normal 9-24 [facility] Comment on above: Order Comment: Speci men Type: BLOOD SPECIMENOrdering Facility: [facility] Address: [address] [place], [place] [address] Performed By: #### 2 4323-8 ####[facility] BARNESWNCLIWill [id number] [address] OF [facility] CNPNon 11-03-2024 CNPN Telephone (PHAMTE) ARSENIO VILLALOBOS ([id number]) 1965 M Date Time Provider Department 11/03/24 MONALISA MELENDEZ During your visit today, we recorded the following information about you: Monalisa Melendez [facility] 11/03/2024 9:59 AM Signed [facility] Anticoagulation Episode Summary Anticoagulation Care Providers Provider Role Specialty Phone number Juan Willis MD Referring Cardiology [phone] Arsenio Villalobos is a 59 year old year old male patient being evaluated today for a Telemanagement visit. Patient is currently on the following anticoagulant(s) Warfarin. Labs Lab Results Component Value Date INR 3.0 (A) 11/03/2024 INR 1.7 10/21/2024 INR 1.6 10/13/2024 Lab Results Component Value Date HB 14.5 06/12/2022 HB 15.2 10/24/2020 HB 12.9 (L) 09/22/2020 Lab Results Component Value Date HCT 43.7 06/12/2022 HCT 46.6 10/24/2020 HCT 40.0 09/22/2020 Lab Results Component Value Date PLT 188 06/12/2022 PLT 286 10/24/2020 PLT 488 (H) 09/22/2020 Lab Results Component Value Date CREAT 1.05 06/12/2022 CREAT 1.18 10/24/2020 CREAT 1.13 09/22/2020 No components found for: TBILI3 Lab Results Component Value Date ALT 27 06/12/2022 ALT 19 10/24/2020 ALT 32 09/22/2020 Lab Results Component Value Date AST 29 06/12/2022 AST 24 10/24/2020 AST 30 09/22/2020 CrCl cannot be calculated (Patient's most recent lab result is older than the maximum 180 days allowed.). ALLERGIES Allergen Reactions Penicillins Unknown childhood Tegaderm Ag Mesh [S* Rash, Swelling Indication for Warfarin: detention current use of anticoagulant H/o mechanical aortic valve replacement Anticoagulation Episode Summary Current INR goal: 1.5-2.0 Assessment: INR result of 3.0 is SUPRAtherapeutic due to: unknown cause - did not speak to patient Plan: Current Warfarin Dosing As of 11/03/2024 Full warfarin instructions: 11/03: Hold; Otherwise 5 mg every day Left voice message Advised patient to hold 1 dose then continue current regimen Next point of care INR check scheduled on 11/19/2024 Asked him to call with questions or concerns/ or changes. Patient advised to call the PAC with any medication changes, bleeding/bruising concerns, recent changes in vitamin k consumption, if any procedures are coming up, if they have been ill or in the hospital, and if they have missed any doses of warfarin. Monalisa Melendez [facility] Clinical Pharmacist, Pharmacy Anticoagulation Clinic Pharmacy Anticoagulation Clinic Pager: [phone]. Allergies As of Date: 11/03/2024 Noted Allergy Reaction PENICILLINS 10/22/2007 16 - Unknown Comments: childhood TEGADERM AG MESH (SILVER) 09/06/2020 2 - Rash 7 - Swelling Date Reviewed: 09/29/2024 Reviewed by: Mary Luna APRN.LIFT OPERATOR - Fully Assessed Reason for Visit: Anticoagulation Telephone Fu [148] Cmt: Home INR Primary Visit Diagnosis:detention current use of anticoagulant [Z79.01] Other Visit Diagnosis:H/O mechanical aortic valve replacement [Z95.2] Prescriptions as of 11/03/2024 - atorvastatin (LIPITOR) 20 mg tablet Take 1 tablet by mouth once daily. - metoprolol succinate ER (TOPROL XL) 100 mg TAKE 1 TABLET BY MOUTH EVERY DAY - MULTIVITAMIN ORAL Take by mouth. - semaglutide, weight loss, (WEGOVY) 2.4 mg/0.75 mL pen injector Inject 2.4 mg under the skin one time a week. - losartan (COZAAR) 100 mg tablet Take 1 tablet by mouth once daily. - tamsulosin (FLOMAX) 0.4 mg Take 0.4 mg by mouth once daily. - warfarin (COUMADIN) 5 mg tablet 7.5 mg every Mon, Fri; 5 mg all other days - pantoprazole DR (PROTONIX) 40 mg tablet Take 1 tablet by mouth as needed. - aspirin 81 mg chewable tablet 1 tablet by ORAL/FEEDING TUBE route once daily. - buPROPion SR (ZYBAN SR; WELLBUTRIN SR) 150 mg 12 hr tablet Take by mouth once daily. - p-ephed hcl/cetirizine hcl(ZYRTEC-D 5 MG-120 MG 12 HR TAB) Take one(1) tablet two(2) times daily. - ALBUTEROL 90 MCG/ACTUATION AEROSOL INHALER Inhale one(1) - two(2) puffs four(4) times a day as needed for wheezing and shortness of breath. Problem List As Of Date 11/03/2024 Noted Resolved Esophageal obstruction [K22.2] 12/31/2010 Esophageal obstruction due to food impaction [T*01/19/2015 Chronic antral gastritis [K29.50] 02/16/2015 Gastroesophageal reflux disease with esophagiti*02/16/2015 Obesity, Class I, BMI 30-34.9 [E66.811] 09/08/2020 Essential hypertension [I10] 09/08/2020 Severe aortic stenosis [I35.0] 09/08/2020 Discharge planning issues [Z75.8] 09/08/2020 Preop testing [Z01.818] 09/08/2020 On mechanically assisted ventilation (HCC) [Z99*09/12/2020 09/13/2020 Postoperative pain [G89.18] 09/12/2020 Stress hyperglycemia [R73.9] 09/12/2020 09/16/2020 Pleural effusion [J90] 09/13/2020 High bilirubin [R17] 09/14/2020 Liver e (more content not included)... Normal [facility] CNPNon 10-21-2024 CNPN Telephone (PHAMTE) ARSENIO VILLALOBOS ([id number]) 1965 M Date Time Provider Department 10/21/24 LYDIA HANLEY During your visit today, we recorded the following information about you: Lydia Hanley, [facility] 10/21/2024 10:13 AM Signed [facility] Anticoagulation Episode Summary Anticoagulation Care Providers Provider Role Specialty Phone number Juan Willis MD Referring Cardiology [phone] Arsenio Villalobos is a 59 year old year old male patient being evaluated today for a Telemanagement visit. Patient is currently on the following anticoagulant(s) Warfarin. Labs Lab Results Component Value Date INR 1.7 10/21/2024 INR 1.6 10/13/2024 INR 1.8 10/02/2024 Lab Results Component Value Date HB 14.5 06/12/2022 HB 15.2 10/24/2020 HB 12.9 (L) 09/22/2020 Lab Results Component Value Date HCT 43.7 06/12/2022 HCT 46.6 10/24/2020 HCT 40.0 09/22/2020 Lab Results Component Value Date PLT 188 06/12/2022 PLT 286 10/24/2020 PLT 488 (H) 09/22/2020 Lab Results Component Value Date CREAT 1.05 06/12/2022 CREAT 1.18 10/24/2020 CREAT 1.13 09/22/2020 No components found for: TBILI3 Lab Results Component Value Date ALT 27 06/12/2022 ALT 19 10/24/2020 ALT 32 09/22/2020 Lab Results Component Value Date AST 29 06/12/2022 AST 24 10/24/2020 AST 30 09/22/2020 CrCl cannot be calculated (Patient's most recent lab result is older than the maximum 180 days allowed.). 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 H/o mechanical aortic valve replacement Anticoagulation Episode Summary Current INR goal: 1.5-2.0 Assessment: INR result of 1.7 is therapeutic Plan: Current Warfarin Dosing As of 10/21/2024 Full warfarin instructions: 5 mg every day Sent [employer] message Advised patient to continue current weekly dose as noted above Next home INR check scheduled on 11/04/2024 Patient advised to call the PAC with any medication changes, bleeding/bruising concerns, recent changes in vitamin k consumption, if any procedures are coming up, if they have been ill or in the hospital, and if they have missed any doses of warfarin. Lydia Hanley [facility] Clinical Pharmacist, Pharmacy Anticoagulation Clinic Pharmacy Antico[facility] Clinic Pager: [phone]. 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 - metoprolol succinate ER (TOPROL XL) 100 mg TAKE 1 TABLET BY MOUTH EVERY DAY - MULTIVITAMIN ORAL Take by mouth. - semaglutide, weight loss, (WEGOVY) 2.4 mg/0.75 mL pen injector Inject 2.4 mg under the skin one time a week. - losartan (COZAAR) 100 mg tablet Take 1 tablet by mouth once daily. - tamsulosin (FLOMAX) 0.4 mg Take 0.4 mg by mouth once daily. - warfarin (COUMADIN) 5 mg tablet 7.5 mg every Mon, Fri; 5 mg all other days - pantoprazole DR (PROTONIX) 40 mg tablet Take 1 tablet by mouth as needed. - aspirin 81 mg chewable tablet 1 tablet by ORAL/FEEDING TUBE route once daily. - buPROPion SR (ZYBAN SR; WELLBUTRIN SR) 150 mg 12 hr tablet Take by mouth once daily. - p-ephed hcl/cetirizine hcl(ZYRTEC-D 5 MG-120 MG 12 HR TAB) Take one(1) tablet two(2) times daily. - ALBUTEROL 90 MCG/ACTUATION AEROSOL INHALER Inhale one(1) - two(2) puffs four(4) times a day as needed for wheezing and shortness of breath. Problem List As Of Date 10/21/2024 Noted Resolved Esophageal obstruction [K22.2] 12/31/2010 Esophageal obstruction due to food impaction [T*01/19/2015 Chronic antral gastritis [K29.50] 02/16/2015 Gastroesophageal reflux disease with esophagiti*02/16/2015 Obesity, Class I, BMI 30-34.9 [E66.811] 09/08/2020 Essential hypertension [I10] 09/08/2020 Severe aortic stenosis [I35.0] 09/08/2020 Discharge planning issues [Z75.8] 09/08/2020 Preop testing [Z01.818] 09/08/2020 On mechanically assisted ventilation (HCC) [Z99*09/12/2020 09/13/2020 Postoperative pain [G89.18] 09/12/2020 Stress hyperglycemia [R73.9] 09/12/2020 09/16/2020 Pleural effusion [J90] 09/13/2020 High bilirubin [R17] 09/14/2020 Liver enzyme elevation [R74.8] 09/14/2020 Encounter for support and coordination of trans*09/15/2020 Encounter for monitoring warfarin therap (more content not included)... Normal [facility] 10-13[facility]2024 [facility] GRISELDAARSENIO DEAN ([id number]) 1965 M Date Time Provider Department 10/13/24 MONALISA MELENDEZ PHATREY During your visit today, we recorded the following information about you: Monalisa Melendez [facility] 10/13/2024 8:45 AM Signed [facility] Anticoagulation Episode Summary Anticoagulation Care Providers Provider Role Specialty Phone number Juan Willis MD Referring Cardiology [phone] Arsenio Villalobos is a 59 year old year old male patient being evaluated today for a Telemanagement visit. Patient is currently on the following anticoagulant(s) Warfarin. Labs Lab Results Component Value Date INR 1.6 10/13/2024 INR 1.8 10/02/2024 INR 3.2 (A) 09/10/2024 Lab Results Component Value Date HB 14.5 06/12/2022 HB 15.2 10/24/2020 HB 12.9 (L) 09/22/2020 Lab Results Component Value Date HCT 43.7 06/12/2022 HCT 46.6 10/24/2020 HCT 40.0 09/22/2020 Lab Results Component Value Date PLT 188 06/12/2022 PLT 286 10/24/2020 PLT 488 (H) 09/22/2020 Lab Results Component Value Date CREAT 1.05 06/12/2022 CREAT 1.18 10/24/2020 CREAT 1.13 09/22/2020 No components found for: TBILI3 Lab Results Component Value Date ALT 27 06/12/2022 ALT 19 10/24/2020 ALT 32 09/22/2020 Lab Results Component Value Date AST 29 06/12/2022 AST 24 10/24/2020 AST 30 09/22/2020 CrCl cannot be calculated (Patient's most recent lab result is older than the maximum 180 days allowed.). 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 H/o mechanical aortic valve replacement Anticoagulation Episode Summary Current INR goal: 1.5-2.0 Assessment: INR result of 1.6 is therapeutic Plan: Current Warfarin Dosing As of 10/13/2024 Full warfarin instructions: 5 mg every day Called and spoke to patient/caregiver Advised patient to continue current weekly dose as noted above Next home INR check scheduled on 10/27/2024 Patient advised to call the PAC with any medication changes, bleeding/bruising concerns, recent changes in vitamin k consumption, if any procedures are coming up, if they have been ill or in the hospital, and if they have missed any doses of warfarin. Monalisa Melendez [facility] Clinical Pharmacist, Pharmacy Anticoagulation Clinic Pharmacy Anticoagulation Clinic Pager: [phone]. Allergies As of Date: 10/13/2024 Noted Allergy Reaction PENICILLINS 10/22/2007 16 - Unknown Comments: childhood TEGADERM AG MESH (SILVER) 09/06/2020 2 - Rash 7 - Swelling Date Reviewed: 09/29/2024 Reviewed by: Mary Luna APRN.LIFT OPERATOR - Fully Assessed Reason for Visit: Anticoagulation Telephone Fu [148] Cmt: Home INR result Primary Visit Diagnosis:detention current use of anticoagulant [Z79.01] Other Visit Diagnosis:H/O mechanical aortic valve replacement [Z95.2] Prescriptions as of 10/13/2024 - metoprolol succinate ER (TOPROL XL) 100 mg TAKE 1 TABLET BY MOUTH EVERY DAY - MULTIVITAMIN ORAL Take by mouth. - semaglutide, weight loss, (WEGOVY) 2.4 mg/0.75 mL pen injector Inject 2.4 mg under the skin one time a week. - losartan (COZAAR) 100 mg tablet Take 1 tablet by mouth once daily. - tamsulosin (FLOMAX) 0.4 mg Take 0.4 mg by mouth once daily. - warfarin (COUMADIN) 5 mg tablet 7.5 mg every Mon, Fri; 5 mg all other days - pantoprazole DR (PROTONIX) 40 mg tablet Take 1 tablet by mouth as needed. - aspirin 81 mg chewable tablet 1 tablet by ORAL/FEEDING TUBE route once daily. - buPROPion SR (ZYBAN SR; WELLBUTRIN SR) 150 mg 12 hr tablet Take by mouth once daily. - p-ephed hcl/cetirizine hcl(ZYRTEC-D 5 MG-120 MG 12 HR TAB) Take one(1) tablet two(2) times daily. - ALBUTEROL 90 MCG/ACTUATION AEROSOL INHALER Inhale one(1) - two(2) puffs four(4) times a day as needed for wheezing and shortness of breath. Problem List As Of Date 10/13/2024 Noted Resolved Esophageal obstruction [K22.2] 12/31/2010 Esophageal obstruction due to food impaction [T*01/19/2015 Chronic antral gastritis [K29.50] 02/16/2015 Gastroesophageal reflux disease with esophagiti*02/16/2015 Obesity, Class I, BMI 30-34.9 [E66.811] 09/08/2020 Essential hypertension [I10] 09/08/2020 Severe aortic stenosis [I35.0] 09/08/2020 Discharge planning issues [Z75.8] 09/08/2020 Preop testing [Z01.818] 09/08/2020 On mechanically assisted ventilation (HCC) [Z99*09/12/2020 09/13/2020 Postoperative pain [G89.18] 09/12/2020 Stress hyperglycemia [R73.9] 09/12/2020 09/16/2020 Pleural effusion [J90] 09/13/2020 High bilirubin [R17] 09/14/2020 Liver enzyme elevation [R74.8] 09/14/2020 Encounter for support and coordination of trans*09/15/2020 Encounter for monitoring warfarin therapy [Z51.*09/16/2020 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 Normal [facility] Gi 10-04-2024 JENNIEN Telephone (ANJELICAMNLuz) ARSENIO VILLALOBOS ([id number]) 1965 M Date Time Provider Department 10/04/24 MELANY WRIGHT During your visit today, we recorded the following information about you: Melany Wright RPh 10/04/2024 7:38 AM Signed [facility] Anticoagulation Episode Summary Anticoagulation Care Providers Provider Role Specialty Phone number Juan Willis MD Referring Cardiology [phone] Arsenio Villalobos is a 59 year old year old male patient being evaluated today for a Telemanagement visit. Patient is currently on the following anticoagulant(s) Warfarin. Labs PT INR (no units) Date Value 03/14/2022 1.4 biotel 10/12/2021 2.7 07/30/2021 3.6 biotel INR Home CoaguChek (no units) Date Value 10/02/2024 1.8 09/10/2024 3.2 08/23/2024 3.2 Hemoglobin (g/dL) Date Value 06/12/2022 14.5 10/24/2020 15.2 Hematocrit (%) Date Value 06/12/2022 43.7 10/24/2020 46.6 Platelet Count (k/uL) Date Value 06/12/2022 188 10/24/2020 286 Creatinine (mg/dL) Date Value 06/12/2022 1.05 10/24/2020 1.18 09/22/2020 1.13 09/17/2020 0.94 Bilirubin, Total (mg/dL) Date Value 06/12/2022 0.4 10/24/2020 0.4 ALT (U/L) Date Value 06/12/2022 27 10/24/2020 19 AST (U/L) Date Value 06/12/2022 29 10/24/2020 24 CrCl cannot be calculated (Patient's most recent lab result is older than the maximum 180 days allowed.). ALLERGIES Allergen Reactions Penicillins Unknown childhood Tegaderm Ag Mesh [S* Rash, Swelling Indication for Warfarin: Anticoagulation Episode Summary Current INR goal: 1.5-2.0 Assessment: INR result of 1.8 is therapeutic Plan: Current Warfarin Dosing As of 10/04/2024 Full warfarin instructions: 5 mg every day Sent mychart message Advised patient to continue current weekly dose as noted above Next INR check due on 10/18/2024 Melany Wright [facility] Clinical Pharmacist, Pharmacy Anticoagulation Clinic Pharmacy Anticoagulation Clinic Pager: [phone]. Allergies As of Date: 10/04/2024 Noted Allergy Reaction PENICILLINS 10/22/2007 16 - Unknown Comments: childhood TEGADERM AG MESH (SILVER) 09/06/2020 2 - Rash 7 - Swelling Date Reviewed: 09/29/2024 Reviewed by: Mary Luna APRN.LIFT OPERATOR - Fully Assessed Reason for Visit: Anticoagulation Telephone Fu [148] Cmt: Home INR Result Prescriptions as of 10/04/2024 - metoprolol succinate ER (TOPROL XL) 100 mg TAKE 1 TABLET BY MOUTH EVERY DAY - MULTIVITAMIN ORAL Take by mouth. - semaglutide, weight loss, (WEGOVY) 2.4 mg/0.75 mL pen injector Inject 2.4 mg under the skin one time a week. - losartan (COZAAR) 100 mg tablet Take 1 tablet by mouth once daily. - tamsulosin (FLOMAX) 0.4 mg Take 0.4 mg by mouth once daily. - warfarin (COUMADIN) 5 mg tablet 7.5 mg every Mon, Fri; 5 mg all other days - pantoprazole DR (PROTONIX) 40 mg tablet Take 1 tablet by mouth as needed. - aspirin 81 mg chewable tablet 1 tablet by ORAL/FEEDING TUBE route once daily. - buPROPion SR (ZYBAN SR; WELLBUTRIN SR) 150 mg 12 hr tablet Take by mouth once daily. - p-ephed hcl/cetirizine hcl(ZYRTEC-D 5 MG-120 MG 12 HR TAB) Take one(1) tablet two(2) times daily. - ALBUTEROL 90 MCG/ACTUATION AEROSOL INHALER Inhale one(1) - two(2) puffs four(4) times a day as needed for wheezing and shortness of breath. Problem List As Of Date 10/04/2024 Noted Resolved Esophageal obstruction [K22.2] 12/31/2010 Esophageal obstruction due to food impaction [T*01/19/2015 Chronic antral gastritis [K29.50] 02/16/2015 Gastroesophageal reflux disease with esophagiti*02/16/2015 Obesity, Class I, BMI 30-34.9 [E66.811] 09/08/2020 Essential hypertension [I10] 09/08/2020 Severe aortic stenosis [I35.0] 09/08/2020 Discharge planning issues [Z75.8] 09/08/2020 Preop testing [Z01.818] 09/08/2020 On mechanically assisted ventilation (HCC) [Z99*09/12/2020 09/13/2020 Postoperative pain [G89.18] 09/12/2020 Stress hyperglycemia [R73.9] 09/12/2020 09/16/2020 Pleural effusion [J90] 09/13/2020 High bilirubin [R17] 09/14/2020 Liver enzyme elevation [R74.8] 09/14/2020 Encounter for support and coordination of trans*09/15/2020 Encounter for monitoring warfarin therapy [Z51.*09/16/2020 detention current use of anticoagulant [Z79.01] 05/31/2021 H/O mechanical aortic valve replacement [Z95.2] 05/31/2021 Bicuspid aortic valve (HCC) [Q23.81] 06/13/2022 Encounter Status:Closed by MELANY WRIGHT on 10/04/24 [facility] Andreina 09-29-2024 CNOV Office Visit (CARCMN ) ARSENIO VILLALOBOS ([id number]) 1965 M Date Time Provider Department 09/29/24 9:00 AM Mary LUNA During your visit today, we recorded the following information about you: Pulse Respiration Blood pressure Weight 83/minute 14/minute 113/79 94.8 kg Mary Luna APRN.LIFT OPERATOR 09/29/2024 11:20 AM Signed [facility] [place] Trevor Velazquez Department of Cardiovascular Medicine SECTION OF CLINICAL CARDIOLOGY OUTPATIENT VISIT DATE September 29, 2024 OUTPATIENT VISIT TYPE ESTABLISHED PRIMARY CARE PHYSICIAN: Gilbert Vanegas ([facility]) [address] [place] [address] REFERRING PHYSICIAN: Kaleb Eduardo [address] [facility] [id number] CHIEF COMPLAINT: Cardiology Follow Up HISTORY OF PRESENT ILLNESS: Mr. Villalobos is a 59-year-old male with a history of bicuspid aortic valve and severe aortic stenosis, status post AVR with mechanical On-X valve in 08/2020, and hypertension, presenting for an annual follow-up. He reports feeling well from a cardiac standpoint. He denies experiencing any chest pain. He notes occasional dyspnea on exertion, such as when climbing stairs, which he attributes to insufficient cardiovascular exercise and age. He emphasizes that this dyspnea is significantly less severe than prior to his surgery. He also reports intermittent palpitations, described as skipping a beat, which he notices more frequently when dehydrated. He denies experiencing these palpitations multiple times daily. He denies any episodes of hypotension and monitors his blood pressure regularly, noting consistent readings around 120/80 mmHg. He denies any issues with bleeding or lower extremity edema. He mentions that his INR levels fluctuate, occasionally reaching values in the 3s, and attributes this variability to dietary changes, specifically a decrease in green vegetable intake. He denies any bleeding complications. He is on Wegovy for weight loss and reports that his weight has stabilized. He expresses a strong preference to continue Wegovy, citing its benefits in reducing noise and improving his overall well-being. PAST MEDICAL HISTORY Diagnosis Date Allergic rhinitis, cause unspecified Aortic valve stenosis Dysphagia 02/06/2015 Hiatal hernia 02/06/2015 HTN (hypertension) Other specified disorder of gallbladder Reflux esophagitis 02/06/2015 PAST SURGICAL HISTORY Procedure Laterality Date COLONOSCOPY FLX DX W/COLLJ SPEC WHEN PFRMD 11/11/2012 Colonoscopy inpt [facility] ESOPHAGOGASTRODUODENOSCOPY TRANSORAL DIAGNOSTIC 11/11/2012 [facility] H-pylori negative GASTROESOPHAG REFLX TEST W/TELEMTRY PH ELTRD 02/06/2015 LAPS SURG CHOLECYSTECTOMY W/CHOLANGIOGRAPHY 10/28/2007 PAST SURGICAL HISTORY OF 04/21/2008 2 cervical disc fusion PAST SURGICAL HISTORY OF Bilateral hand, carpal tunnel PAST SURGICAL HISTORY OF Right shoulder PAST SURGICAL HISTORY OF 09/12/2020 AVR [place] PAST SURGICAL HISTORY OF 03/2020 urolift -prostate PILONIDAL CYST/SINUS EXCISION RDCTJ TORSION TSTIS W/WO FIXJ CLAT TESTIS 14 years old TONSILLECTOMY AND ADENOIDECTOMY VASECTOMY VASECTOMY UNI/BI SPX W/POSTOP SEMEN EXAMS SOCIAL HISTORY Social History Tobacco Use Smoking status: Former Current packs/day: 0.00 Types: Cigarettes Quit date: 12/31/2000 Years since quittin.7 Smokeless tobacco: Former Types: Chew Quit date: 09/11/2020 Vaping Use Vaping status: Never Used Substance Use Topics Alcohol use: Not Currently Comment: a couple of beers a day Drug use: No FAMILY HISTORY Problem Relation Age of Onset Breast Cancer Mother Hypertension Father Alzheimer's Disease Father No Known Problems Maternal Grandmother No Known Problems Maternal Grandfather Parkinson?s Disease Paternal Grandmother No Known Problems Paternal Grandfather Colon Cancer No Family History Patient-Entered Questionnaire Scores 06/16/2023 09/28/2024 Patient Entered Questionnaires Average hours of sleep per day 5 6 Diagnosed with Sleep Apnea No 06/16/2023 Sleep Apnea Probability Score Probability (%) 54 (Recommend sleep study) 06/16/2023 07/31/2023 09/28/2024 Insomnia Severity Index (CURRY) Score 11 (Subthreshold insomnia) 11 (Subthreshold insomnia) 11 (Subthreshold insomnia) 09/04/2020 06/16/2023 09/28/2024 PROMIS Global Health - (T-Scores - the mean of general population = 50. Five points is a clinically meaningful difference.) Physical T-Score 37.4 47.7 47.7 Mental T-Score 38.8 43.5 41.1 ALLERGIES: ALLERGIES Allergen Reactions Penicillins Unknown childhood Tegaderm Ag Mesh [S* Rash, Swelling MEDICATIONS: MULTIVITAMIN ORAL Take by mouth. semaglutide, weight loss, (WEGOVY) 2.4 mg/0.75 mL pen injector Inject 2.4 mg under the skin one time a week. metoprolol succinate ER (TO (more content not included)... Normal [facility] ECG COMPLETEon 09-29-2024 ECG COMPLETE Ventricular Rate : 8 9 BPM Atrial Rate : 89 BPM P-R Interval : 170 ms QRS Duration : 94 ms Q-T Interval : 336 ms QTC Calculation(Bazett) : 408 ms Calculated P [place] : 51 degrees Calculated R [place] : 43 degrees Calculated T [place] : 32 degrees NORMAL SINUS RHYTHM NORMAL ECG Confirmed by MD GEOVANNA, PhD, HAKEEM ([id number]) on 11/12/2024 7:13:27 AM NAME : ARSENIO VILLALOBOS PID : [id number] : 1965 Gender : Male Race : ORD : [id number] Procedure Date : Sep 29 2024 07:59:10 Edit Date : Nov 12 2024 07:15:55 Diagnosis: NORMAL SINUS RHYTHM NORMAL ECG Confirmed by MD GEOVANNA, PhD, HAKEEM ([id number]) on 11/12/2024 7:13:27 AM Test Reason : Location : 314 : [facility] Overread By : MD GEOVANNA, PhD,HAKEEM Edited By : MD GEOVANNA, PhD,HAKEEM Referred By : KALEB EDUARDO Acquired by : RAO BEY [facility] Lipid 1996 panelon 5 Cholesterol [Mass/Vol] 184 mg/dL Normal <200 [facility] Comment on above: Order Comment: Speci men Type: BLOOD SPECIMENOrdering Facility: [facility] Address: [address] [place] [address] Result Comment: <200 mg/dL, Desirable 200-239 mg/dL, Borderline high >239 mg/dL, High Performed By: #### 2 4331-1 ####[facility] [id number] [address] OF [facility] Cholesterol in HDL [Mass/Vol] 48 mg/dL Normal >39 [facility] Comment on above: Order Comment: Speci men Type: BLOOD SPECIMENOrdering Facility: [facility] Address: [address] [place] [address] Result Comment: 40-5 9 mg/dL, Acceptable >59 mg/dL, High: Negative risk factor for coronary heart disease <40 mg/dL, Low: Positive risk factor for coronary heart disease Performed By: #### 2 4331-1 ####[facility] [id number] [place] [address] [place] Cholesterol in LDL [Mass/Vol] 110 mg/dL High <100 [facility] Comment on above: Order Comment: Speci men Type: BLOOD SPECIMENOrdering Facility: [facility] Address: [address] [place] [address] Result Comment: <100 mg/dL, Optimal 100-129 mg/dL, Near optimal/above optimal 130-159 mg/dL, Borderline high 160-189 mg/dL, High >189 mg/dL, Very high Secondary prevention optimal LDL Cholesterol levels are recommended to be <70 mg/dL LDL cholesterol is calculated using the Estes-NIH equation. Performed By: #### 2 4331-1 ####[facility] [id number] [address] [place] Cholesterol in LDL/Cholesterol in HDL [Mass ratio] 2.29 {ratio} Normal <2.54 [facility] Comment on above: Order Comment: Speci men Type: BLOOD SPECIMENOrdering Facility: [facility] Address: [address] [place] [address] Result Comment: Refe sharonce: 1. National Cholesterol Education Program ATP III Guideline At-A-Glance Quick Desk Reference: National Heart, Lung, and Blood [place]. National Institutes of Health. 2001: NIH Publication No. 01-3305. 2. An International Atherosclerosis Society position paper: global recommendations for the management of dyslipidemia: executive summary, Atherosclerosis. 2014: 232(2):410-413. Performed By: #### 2 4331-1 ####[facility] [id number] [place] [address] [place] Cholesterol in VLDL [Mass/Vol] 25 mg/dL Normal <30 [facility] Comment on above: Order Comment: Valeriai men Type: BLOOD SPECIMENOrdering Facility: [facility] Address: [address] [place] [address] Performed By: #### 2 4331-1 ####[facility] [id number] [place] Cholesterol non HDL [Mass/Vol] 136 mg/dL High <130 [facility] Comment on above: Order Comment: Speci men Type: BLOOD SPECIMENOrdering Facility: [facility] Address: [address] [place] [address] Result Comment: <130 mg/dL, Optimal 130-159 mg/dL, Near optimal/above optimal 160-189 mg/dL, Borderline high 190-219 mg/dL, High >219 mg/dL, Very high Secondary prevention optimal non HDL Cholesterol levels are recommended to be <100 mg/dL Performed By: #### 2 4331-1 ####[facility] [id number] [place] [address] [place] Cholesterol.total/Ch olesterol in HDL [Mass ratio] 3.83 {ratio} Normal <5.10 [facility] Comment on above: Order Comment: Speci men Type: BLOOD SPECIMENOrdering Facility: [facility] Address: [address] [place] [address] Performed By: #### 2 4331-1 ####[facility] [id number] [address] [place] FASTING TIME 0 hrs Normal [facility] Comment on above: Order Comment: Speci men Type: BLOOD SPECIMENOrdering Facility: [facility] Address: [address] [place] [address] Performed By: #### 2 4331-1 ####[facility] [id number] [place] [id number] [place] Triglyceride [Mass/Vol] 148 mg/dL Normal <150 [facility] Comment on above: Order Comment: Speci men Type: BLOOD SPECIMENOrdering Facility: [facility] Address: [address] [place] [address] Result Comment: <150 mg/dL, Normal 150-199 mg/dL, Borderline high 200-499 mg/dL, High >499 mg/dL, Very high Performed By: #### 2 4331-1 ####[facility] [id number] [address] [place] CNPRin 09-10-2024 CNPN Telephone (PHAMTE) ARSENIO VILLALOBOS ([id number]) 1965 M Date Time Provider Department 09/10/24 NIKOLAI CERNA During your visit today, we recorded the following information about you: Nikolai Cerna [facility] 09/10/2024 2:49 PM Signed [facility] Anticoagulation Episode Summary Anticoagulation Care Providers Provider Role Specialty Phone number Juan Willis MD Referring Cardiology [phone] Arsenio Villalobos is a 59 year old year old male patient being evaluated today for a Telemanagement visit. Patient is currently on the following anticoagulant(s) Warfarin. Labs Lab Results Component Value Date INR 3.2 (A) 09/10/2024 INR 3.2 (A) 08/23/2024 INR 2.7 (A) 07/29/2024 Lab Results Component Value Date HB 14.5 06/12/2022 HB 15.2 10/24/2020 HB 12.9 (L) 09/22/2020 Lab Results Component Value Date HCT 43.7 06/12/2022 HCT 46.6 10/24/2020 HCT 40.0 09/22/2020 Lab Results Component Value Date PLT 188 06/12/2022 PLT 286 10/24/2020 PLT 488 (H) 09/22/2020 Lab Results Component Value Date CREAT 1.05 06/12/2022 CREAT 1.18 10/24/2020 CREAT 1.13 09/22/2020 No components found for: TBILI3 Lab Results Component Value Date ALT 27 06/12/2022 ALT 19 10/24/2020 ALT 32 09/22/2020 Lab Results Component Value Date AST 29 06/12/2022 AST 24 10/24/2020 AST 30 09/22/2020 CrCl cannot be calculated (Patient's most recent lab result is older than the maximum 180 days allowed.). ALLERGIES Allergen Reactions Penicillins Unknown childhood Tegaderm Ag Mesh [S* Rash, Swelling Indication for Warfarin: detention current use of anticoagulant H/o mechanical aortic valve replacement Anticoagulation Episode Summary Current INR goal: 1.5-2.0 Assessment: INR result of 3.2 is SUPRAtherapeutic due to: No obvious cause (patient denies medication change, grapefruit/cranberry/pomegra valentin/seema ingestion, OTC medication use, change in herbal/nutritional supplement, accidental overdosage, change in warfarin tablet shape or color, change in vit K consumption, recent illness (NVD, fever), any changes to general health, changes in tobacco use, or EtOH consumption) Plan: Current Warfarin Dosing As of 09/10/2024 Full warfarin instructions: 09/10: 2.5 mg; Otherwise 5 mg every day Called and spoke to patient/caregiver Advised patient to decrease dose for 1 day and decrease total weekly regimen Next lab INR check scheduled on 10/01/2024 Patient verbalizes understanding of the plan. Patient denies need for refills. Patient advised to call the PAC with any medication changes, bleeding/bruising concerns, recent changes in vitamin k consumption, if any procedures are coming up, if they have been ill or in the hospital, and if they have missed any doses of warfarin. Nikolai Cerna RPh Clinical Pharmacist, Pharmacy Anticoagulation Clinic Pharm[facility] Pager: [phone]. Nikolai Cerna RPh 10/01/2024 4:12 PM Signed Patient was due to test INR today. Will continue to monitor for results. Follow up in one week if no results received. Patient's INR Goal range is - 1.5-2.0 PT INR (no units) Date Value 03/14/2022 1.4 biotel 10/12/2021 2.7 07/30/2021 3.6 biotel INR Home CoaguChek (no units) Date Value 09/10/2024 3.2 08/23/2024 3.2 07/29/2024 2.7 Patient is in titration phase - No Patient has dosing provided until next INR - Yes Patient is on an injectable anticoagulant - No Nikolai Cerna [facility] Allergies As of Date: 09/10/2024 Noted Allergy Reaction PENICILLINS 10/22/2007 16 - Unknown Comments: childhood TEGADERM AG MESH (SILVER) 09/06/2020 2 - Rash 7 - Swelling Date Reviewed: 06/17/2023 Reviewed by: Kaylie Lugo MA - Fully Assessed Reason for Visit: Anticoagulation Telephone Fu [148] Cmt: INR Home Test Result 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 - semaglutide, weight loss, (WEGOVY) 2.4 mg/0.75 mL pen injector Inject 2.4 mg under the skin one time a week. - metoprolol succinate ER (TOPROL XL) 100 mg TAKE 1 TABLET BY MOUTH EVERY DAY - losartan (COZAAR) 100 mg tablet Take 1 tablet by mouth once daily. - tamsulosin (FLOMAX) 0.4 mg Take 0.4 mg by mouth once daily. - warfarin (COUMADIN) 5 mg tablet 7.5 mg every Mon, Fri; 5 mg all other days - pantoprazole DR (PROTONIX) 40 mg tablet Take 1 tablet by mouth as needed. - aspirin 81 mg chewable tablet 1 tablet by ORAL/FEEDING TUBE route once daily. - buPROPion SR (ZYBAN SR; WELLBUTRIN SR) 150 mg 12 hr tablet Take by mouth once daily. - p-ephed hcl/cetirizine hcl(ZYRTEC-D 5 MG-120 MG 12 HR TAB) Take one(1) tablet two(2) times daily. - ALBUTEROL 90 MCG/AC (more content not included)... Normal [facility] 08-23-2024 KEN[facility] ARSENIO VILLALOBOS ([id number]) 1965 M Date Time Provider Department 08/23/24 MELANY WRIGHT During your visit today, we recorded the following information about you: Melany Wright RPh 08/23/2024 11:23 AM Signed [facility] Anticoagulation Episode Summary Anticoagulation Care Providers Provider Role Specialty Phone number Juan Willis MD Referring Cardiology [phone] Arsenio Villalobos is a 59 year old year old male patient being evaluated today for a Telemanagement visit. Patient is currently on the following anticoagulant(s) Warfarin. Labs PT INR (no units) Date Value 03/14/2022 1.4 biotel 10/12/2021 2.7 07/30/2021 3.6 biotel INR Home CoaguChek (no units) Date Value 08/23/2024 3.2 07/29/2024 2.7 07/09/2024 2.2 CrCl cannot be calculated (Patient's most recent lab result is older than the maximum 180 days allowed.). ALLERGIES Allergen Reactions Penicillins Unknown childhood Tegaderm Ag Mesh [S* Rash, Swelling Indication for Warfarin: Anticoagulation Episode Summary Current INR goal: 1.5-2.0 Assessment: INR result of 3.2 is SUPRAtherapeutic due to: Alcohol consumption (while traveling out of country). Plan: Current Warfarin Dosing As of 08/23/2024 Full warfarin instructions: 08/23: 2.5 mg; Otherwise 7.5 mg every Fri; 5 mg all other days Called and spoke to patient/caregiver Advised patient to decrease dose for 1 day only then resume weekly regimen Next INR check due on 09/06/2024 Patient verbalizes understanding of the plan. Melany Wright RPh Clinical Pharmacist, Pharmacy Anticoagulation Clinic Pharm[facility] Pager: [phone]. Melany Wright RPh 09/06/2024 3:40 PM Signed Patient was due to test INR today. Will continue to monitor for results. Follow up in one week if no results received. Patient's INR Goal range is - 1.5-2.0 PT INR (no units) Date Value 03/14/2022 1.4 biotel 10/12/2021 2.7 07/30/2021 3.6 biotel INR Home CoaguChek (no units) Date Value 08/23/2024 3.2 07/29/2024 2.7 07/09/2024 2.2 Patient is in titration phase - No Patient has dosing provided until next INR - Yes Patient is on an injectable anticoagulant - No Allergies As of Date: 08/23/2024 Noted Allergy Reaction PENICILLINS 10/22/2007 16 - Unknown Comments: childhood TEGADERM AG MESH (SILVER) 09/06/2020 2 - Rash 7 - Swelling Date Reviewed: 06/17/2023 Reviewed by: Kaylie Lugo MA - Fully Assessed Reason for Visit: Anticoagulation Telephone Fu [148] Cmt: Home INR Result Prescriptions as of 09/06/2024 - semaglutide, weight loss, (WEGOVY) 2.4 mg/0.75 mL pen injector Inject 2.4 mg under the skin one time a week. - metoprolol succinate ER (TOPROL XL) 100 mg TAKE 1 TABLET BY MOUTH EVERY DAY - losartan (COZAAR) 100 mg tablet Take 1 tablet by mouth once daily. - tamsulosin (FLOMAX) 0.4 mg Take 0.4 mg by mouth once daily. - warfarin (COUMADIN) 5 mg tablet 7.5 mg every Mon, Fri; 5 mg all other days - pantoprazole DR (PROTONIX) 40 mg tablet Take 1 tablet by mouth as needed. - aspirin 81 mg chewable tablet 1 tablet by ORAL/FEEDING TUBE route once daily. - buPROPion SR (ZYBAN SR; WELLBUTRIN SR) 150 mg 12 hr tablet Take by mouth twice daily. - p-ephed hcl/cetirizine hcl(ZYRTEC-D 5 MG-120 MG 12 HR TAB) Take one(1) tablet two(2) times daily. - ALBUTEROL 90 MCG/ACTUATION AEROSOL INHALER Inhale one(1) - two(2) puffs four(4) times a day as needed for wheezing and shortness of breath. Problem List As Of Date 08/23/2024 Noted Resolved Esophageal obstruction [K22.2] 12/31/2010 Esophageal obstruction due to food impaction [T*01/19/2015 Chronic antral gastritis [K29.50] 02/16/2015 Gastroesophageal reflux disease with esophagiti*02/16/2015 Obesity, Class I, BMI 30-34.9 [E66.811] 09/08/2020 Essential hypertension [I10] 09/08/2020 Severe aortic stenosis [I35.0] 09/08/2020 Discharge planning issues [Z75.8] 09/08/2020 Preop testing [Z01.818] 09/08/2020 On mechanically assisted ventilation (HCC) [Z99*09/12/2020 09/13/2020 Postoperative pain [G89.18] 09/12/2020 Stress hyperglycemia [R73.9] 09/12/2020 09/16/2020 Pleural effusion [J90] 09/13/2020 High bilirubin [R17] 09/14/2020 Liver enzyme elevation [R74.8] 09/14/2020 Encounter for support and coordination of trans*09/15/2020 Encounter for monitoring warfarin therapy [Z51.*09/16/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] 05/31/2021 H/O mechanical aortic valve replacement [Z95.2] 05/31/2021 Bicuspid aortic valve [Q23.81] 06/13/2022 Encounter Status:Closed by MELANY WRIGHT on 08/23/24 [facility] 07-29-2024 CNPN Telephone (PHAMTE) ARSENIO VILLALOBOS ([id number]) 1965 M Date Time Provider Department 07/29/24 LYDIA HANLEY During your visit today, we recorded the following information about you: Lydia Hanley, [facility] 07/29/2024 9:58 AM Signed [facility] Anticoagulation Episode Summary Anticoagulation Care Providers Provider Role Specialty Phone number Juan Willis MD Referring Cardiology [phone] Arsenio Villalobos is a 58 year old year old male patient being evaluated today for a Telemanagement visit. Patient is currently on the following anticoagulant(s) Warfarin. Labs PT INR (no units) Date Value 03/14/2022 1.4 biotel 10/12/2021 2.7 07/30/2021 3.6 biotel INR Home CoaguChek (no units) Date Value 07/29/2024 2.7 07/09/2024 2.2 06/18/2024 2.0 Hemoglobin (g/dL) Date Value 06/12/2022 14.5 10/24/2020 15.2 Hematocrit (%) Date Value 06/12/2022 43.7 10/24/2020 46.6 Platelet Count (k/uL) Date Value 06/12/2022 188 10/24/2020 286 Creatinine (mg/dL) Date Value 06/12/2022 1.05 10/24/2020 1.18 09/22/2020 1.13 09/17/2020 0.94 Bilirubin, Total (mg/dL) Date Value 06/12/2022 0.4 10/24/2020 0.4 ALT (U/L) Date Value 06/12/2022 27 10/24/2020 19 AST (U/L) Date Value 06/12/2022 29 10/24/2020 24 CrCl cannot be calculated (Patient's most recent lab result is older than the maximum 180 days allowed.). 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 Patient denies need for refills. Patient advised to call the PAC with any medication changes, bleeding/bruising concerns, recent changes in vitamin k consumption, if any procedures are coming up, if they have been ill or in the hospital, and if they have missed any doses of warfarin. Lydia Hanley [facility] Clinical Pharmacist, Pharmacy Anticoagulation Clinic Pharmacy Anticoagulation Clinic Pager: [phone]. Lydia Hanley [facility] 08/12/2024 2:45 PM Signed Patient was due to test INR today. Will continue to monitor for results. Follow up in one week if no results received. Patient's INR Goal range is - 1.5-2.0 PT INR (no units) Date Value 03/14/2022 1.4 biotel 10/12/2021 2.7 07/30/2021 3.6 biotel INR Home CoaguChek (no units) Date Value 07/29/2024 2.7 07/09/2024 2.2 06/18/2024 2.0 Patient is in titration phase - No Patient has dosing provided until next INR - Yes Patient is on an injectable anticoagulant - No Lydia Hanley Lydia Guerrier [facility] 08/19/2024 9:02 AM Signed Arsenio Estrada Griselda was sent [employer] message and reminded to test INR today or as soon as possible. 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 - metoprolol succinate ER (TOPROL XL) 100 mg TAKE 1 TABLET BY MOUTH EVERY DAY - losartan (COZAAR) 100 mg tablet Take 1 tablet by mouth once daily. - tamsulosin (FLOMAX) 0.4 mg Take 0.4 mg by mouth once daily. - warfarin (COUMADIN) 5 mg tablet 7.5 mg every Mon, Fri; 5 mg all other days - pantoprazole DR (PROTONIX) 40 mg tablet Take 1 tablet by mouth as needed. - aspirin 81 mg chewable tablet 1 tablet by ORAL/FEEDING TUBE route once daily. - buPROPion SR (ZYBAN SR; WELLBUTRIN SR) 150 mg 12 hr tablet Take by mouth twice daily. - p-ephed hcl/cetirizine hcl(ZYRTEC-D 5 MG-120 MG 12 HR TAB) Take one(1) tablet two(2) times daily. - ALBUTEROL 90 MCG/ACTUATION AEROSOL INHALER Inhale one(1) - two(2) puffs four(4) times a day as needed for wheezing and shortness of breath. Problem List As Of Date 07/29/2024 Noted Resolved Esophageal obstruction [K22.2] 12/31/2010 Es (more content not included)... [facility] A[facility]ILL[facility] ([id number]) 1965 M Date Time Provider Department 07/09/24 LUCITA ALBA During your visit today, we recorded the following information about you: Lucita Alba [facility] 07/09/2024 11:21 AM Signed [facility] Anticoagulation Episode Summary Anticoagulation Care Providers Provider Role Specialty Phone number Juan Willis MD Referring Cardiology [phone] Arsenio Villalobos is a 58 year old year old male patient being evaluated today for a Telemanagement visit. Patient is currently on the following anticoagulant(s) Warfarin. Labs PT INR (no units) Date Value 03/14/2022 1.4 biotel 10/12/2021 2.7 07/30/2021 3.6 biotel INR Home CoaguChek (no units) Date Value 07/09/2024 2.2 06/18/2024 2.0 05/30/2024 2.1 Hemoglobin (g/dL) Date Value 06/12/2022 14.5 10/24/2020 15.2 Hematocrit (%) Date Value 06/12/2022 43.7 10/24/2020 46.6 Platelet Count (k/uL) Date Value 06/12/2022 188 10/24/2020 286 Creatinine (mg/dL) Date Value 06/12/2022 1.05 10/24/2020 1.18 09/22/2020 1.13 09/17/2020 0.94 Bilirubin, Total (mg/dL) Date Value 06/12/2022 0.4 10/24/2020 0.4 ALT (U/L) Date Value 06/12/2022 27 10/24/2020 19 AST (U/L) Date Value 06/12/2022 29 10/24/2020 24 CrCl cannot be calculated (Patient's most recent lab result is older than the maximum 180 days allowed.). ALLERGIES Allergen Reactions Penicillins Unknown childhood Tegaderm Ag Mesh [S* Rash, Swelling Indication for Warfarin: Anticoagulation Episode Summary Current INR goal: 1.5-2.0 Assessment: INR result of 2.2 is SUPRAtherapeutic due to: unknown cause - did not speak to patient Plan: Current Warfarin Dosing As of 07/09/2024 Full warfarin instructions: 07/09: 5 mg; Otherwise 7.5 mg every Fri; 5 mg all other days Left voice message Advised patient to decrease dose for 1 day only then resume weekly regimen Next home INR check scheduled on 07/23/2024 Patient advised to call the PAC with any medication changes, bleeding/bruising concerns, recent changes in vitamin k consumption, if any procedures are coming up, if they have been ill or in the hospital, and if they have missed any doses of warfarin. Lucita Alba RP Clinical Pharmacist, Pharmacy Anticoagulation Clinic Pharmacy Anticoagulation Clinic Pager: [phone]. Nikolai Cerna RPh 07/23/2024 12:55 PM Signed Patient was due to test INR today. Will continue to monitor for results. Follow up in one week if no results received. Patient's INR Goal range is - 1.5-2.0 PT INR (no units) Date Value 03/14/2022 1.4 biotel 10/12/2021 2.7 07/30/2021 3.6 biotel INR Home CoaguChek (no units) Date Value 07/09/2024 2.2 06/18/2024 2.0 05/30/2024 2.1 Patient is in titration phase - No Patient has dosing provided until next INR - Yes Patient is on an injectable anticoagulant - No Nikolai Cerna sommer Allergies As of Date: 07/09/2024 Noted Allergy Reaction PENICILLINS 10/22/2007 16 - Unknown Comments: childhood TEGADERM AG MESH (SILVER) 09/06/2020 2 - Rash 7 - Swelling Date Reviewed: 06/17/2023 Reviewed by: Kaylie Lugo MA - Fully Assessed Reason for Visit: Anticoagulation Telephone Fu [148] Cmt: Home INR result Prescriptions as of 07/23/2024 - metoprolol succinate ER (TOPROL XL) 100 mg TAKE 1 TABLET BY MOUTH EVERY DAY - losartan (COZAAR) 100 mg tablet Take 1 tablet by mouth once daily. - semaglutide, weight loss, (WEGOVY) 2.4 mg/0.75 mL pen injector Inject 2.4 mg under the skin one time a week. - tamsulosin (FLOMAX) 0.4 mg Take 0.4 mg by mouth once daily. - warfarin (COUMADIN) 5 mg tablet 7.5 mg every Mon, Fri; 5 mg all other days - pantoprazole DR (PROTONIX) 40 mg tablet Take 1 tablet by mouth as needed. - aspirin 81 mg chewable tablet 1 tablet by ORAL/FEEDING TUBE route once daily. - buPROPion SR (ZYBAN SR; WELLBUTRIN SR) 150 mg 12 hr tablet Take by mouth twice daily. - p-ephed hcl/cetirizine hcl(ZYRTEC-D 5 MG-120 MG 12 HR TAB) Take one(1) tablet two(2) times daily. - ALBUTEROL 90 MCG/ACTUATION AEROSOL INHALER Inhale one(1) - two(2) puffs four(4) times a day as needed for wheezing and shortness of breath. Problem List As Of Date 07/09/2024 Noted Resolved Esophageal obstruction [K22.2] 12/31/2010 Esophageal obstruction due to food impaction [T*01/19/2015 Chronic antral gastritis [K29.50] 02/16/2015 Gastroesophageal reflux disease with esophagiti*02/16/2015 Obesity, Class I, BMI 30-34.9 [E66.811] 09/08/2020 Essential hypertension [I10] 09/08/2020 Severe aortic stenosis [I35.0] 09/08/2020 Discharge planning issues [Z75.8] 09/08/2020 Preop testing [Z01.818] 09/08/2020 On mechanically assisted ventilation (HCC) [Z99*09/12/2020 09/13/2020 Postoperative pain [G89.18] 09/12/2020 Stress hyperglycemi (more content not included)... [facility] CNPN Telephone (PHAMTE) ARSENIO VILLALOBOS ([id number]) 1965 M Date Time Provider Department 06/18/24 LUCITA ALBAMNLuz During your visit today, we recorded the following information about you: [facility]18[facility]20[facility] 8:44 AM Signed [facility] Anticoagulation Episode Summary Anticoagulation Care Providers Provider Role Specialty Phone number Juan Willis MD Referring Cardiology [phone] Arsenio Villalobos is a 58 year old year old male patient being evaluated today for a Telemanagement visit. Patient is currently on the following anticoagulant(s) Warfarin. Labs PT INR (no units) Date Value 03/14/2022 1.4 biotel 10/12/2021 2.7 07/30/2021 3.6 biotel INR Home CoaguChek (no units) Date Value 06/18/2024 2.0 05/30/2024 2.1 05/10/2024 2.7 Hemoglobin (g/dL) Date Value 06/12/2022 14.5 10/24/2020 15.2 Hematocrit (%) Date Value 06/12/2022 43.7 10/24/2020 46.6 Platelet Count (k/uL) Date Value 06/12/2022 188 10/24/2020 286 Creatinine (mg/dL) Date Value 06/12/2022 1.05 10/24/2020 1.18 09/22/2020 1.13 09/17/2020 0.94 Bilirubin, Total (mg/dL) Date Value 06/12/2022 0.4 10/24/2020 0.4 ALT (U/L) Date Value 06/12/2022 27 10/24/2020 19 AST (U/L) Date Value 06/12/2022 29 10/24/2020 24 CrCl cannot be calculated (Patient's most recent lab result is older than the maximum 180 days allowed.). ALLERGIES Allergen Reactions Penicillins Unknown childhood Tegaderm Ag Mesh [S* Rash, Swelling Indication for Warfarin: Anticoagulation Episode Summary Current INR goal: 1.5-2.0 Assessment: INR result of 2.0 is therapeutic Plan: Current Warfarin Dosing As of 06/18/2024 Full warfarin instructions: 7.5 mg every Fri; 5 mg all other days Sent [employer] message Advised patient to continue current weekly dose as noted above Next home INR check scheduled on 07/02/2024 Patient advised to call the PAC with any medication changes, bleeding/bruising concerns, recent changes in vitamin k consumption, if any procedures are coming up, if they have been ill or in the hospital, and if they have missed any doses of warfarin. Lucita Alba [facility] Clinical Pharmacist, Pharmacy Anticoagulation Clinic Pharmacy Anticoagulation Clinic Pager: [phone]. Rae Boykin RPh 07/02/2024 1:24 PM Signed Patient was due to test INR today. Will continue to monitor for results. Follow up in one week if no results received. Patient's INR Goal range is - 1.5-2.0 PT INR (no units) Date Value 03/14/2022 1.4 biotel 10/12/2021 2.7 07/30/2021 3.6 biotel INR Home CoaguChek (no units) Date Value 06/18/2024 2.0 05/30/2024 2.1 05/10/2024 2.7 Patient is in titration phase - No Patient has dosing provided until next INR - Yes Patient is on an injectable anticoagulant - No Rae Boykin [facility] Allergies As of Date: 06/18/2024 Noted Allergy Reaction PENICILLINS 10/22/2007 16 - Unknown Comments: childhood TEGADERM AG MESH (SILVER) 09/06/2020 2 - Rash 7 - Swelling Date Reviewed: 06/17/2023 Reviewed by: Kaylie Lugo MA - Fully Assessed Reason for Visit: Anticoagulation Telephone Fu [148] Cmt: Home INR result Prescriptions as of 07/02/2024 - losartan (COZAAR) 100 mg tablet Take 1 tablet by mouth once daily. - semaglutide, weight loss, (WEGOVY) 2.4 mg/0.75 mL pen injector Inject 2.4 mg under the skin one time a week. - metoprolol succinate ER (TOPROL XL) 100 mg Take 1 tablet by mouth once daily. - tamsulosin (FLOMAX) 0.4 mg Take 0.4 mg by mouth once daily. - warfarin (COUMADIN) 5 mg tablet 7.5 mg every Mon, Fri; 5 mg all other days - pantoprazole DR (PROTONIX) 40 mg tablet Take 1 tablet by mouth as needed. - aspirin 81 mg chewable tablet 1 tablet by ORAL/FEEDING TUBE route once daily. - buPROPion SR (ZYBAN SR; WELLBUTRIN SR) 150 mg 12 hr tablet Take by mouth twice daily. - p-ephed hcl/cetirizine hcl(ZYRTEC-D 5 MG-120 MG 12 HR TAB) Take one(1) tablet two(2) times daily. - ALBUTEROL 90 MCG/ACTUATION AEROSOL INHALER Inhale one(1) - two(2) puffs four(4) times a day as needed for wheezing and shortness of breath. Problem List As Of Date 06/18/2024 Noted Resolved Esophageal obstruction [K22.2] 12/31/2010 Esophageal obstruction due to food impaction [T*01/19/2015 Chronic antral gastritis [K29.50] 02/16/2015 Gastroesophageal reflux disease with esophagiti*02/16/2015 Obesity, Class I, BMI 30-34.9 [E66.811] 09/08/2020 Essential hypertension [I10] 09/08/2020 Severe aortic stenosis [I35.0] 09/08/2020 Discharge planning issues [Z75.8] 09/08/2020 Preop testing [Z01.818] 09/08/2020 On mechanically assisted ventilation (HCC) [Z99*09/12/2020 09/13/2020 Postoperative pain [G89.18] 09/12/2020 Stress hyperglycemia [R73.9] 09/12/2020 09/16/2020 Pleural effusion [J90] 09/13/2020 High b (more content not included)... Normal [facility] CNPNon 05-31-2024 CNPN Telephone (PHAMTE) ARSENIO VILLALOBOS ([id number]) 1965 M Date Time Provider Department 05/31/24 MELANY WRIGHT During your visit today, we recorded the following information about you: Melany Wright sommer 05/31/2024 10:40 AM Signed [facility] Anticoagulation Episode Summary Anticoagulation Care Providers Provider Role Specialty Phone number Juan Willis MD Referring Cardiology [phone] Arsenio Villalobos is a 58 year old year old male patient being evaluated today for a Telemanagement visit. Patient is currently on the following anticoagulant(s) Warfarin. Labs PT INR (no units) Date Value 03/14/2022 1.4 biotel 10/12/2021 2.7 07/30/2021 3.6 biotel INR Home CoaguChek (no units) Date Value 05/30/2024 2.1 05/10/2024 2.7 04/18/2024 2.2 Hemoglobin (g/dL) Date Value 06/12/2022 14.5 10/24/2020 15.2 Hematocrit (%) Date Value 06/12/2022 43.7 10/24/2020 46.6 Platelet Count (k/uL) Date Value 06/12/2022 188 10/24/2020 286 Creatinine (mg/dL) Date Value 06/12/2022 1.05 10/24/2020 1.18 09/22/2020 1.13 09/17/2020 0.94 Bilirubin, Total (mg/dL) Date Value 06/12/2022 0.4 10/24/2020 0.4 ALT (U/L) Date Value 06/12/2022 27 10/24/2020 19 AST (U/L) Date Value 06/12/2022 29 10/24/2020 24 CrCl cannot be calculated (Patient's most recent lab result is older than the maximum 180 days allowed.). ALLERGIES Allergen Reactions Penicillins Unknown childhood Tegaderm Ag Mesh [S* Rash, Swelling Indication for Warfarin: Anticoagulation Episode Summary Current INR goal: 1.5-2.0 Assessment: INR result of 2.1 is SUPRAtherapeutic due to: unknown cause - did not speak to patient Plan: Current Warfarin Dosing As of 05/31/2024 Full warfarin instructions: 7.5 mg every Fri; 5 mg all other days Sent [employer] message Advised patient to continue current weekly dose as noted above Next INR check due on 06/14/2024 Melany Wright RP Clinical Pharmacist, Pharmacy Anticoagulation Clinic Pharmacy [facility]tico[facility] Clinic Pager: [phone]. Melany Wright RPh 06/14/2024 4:08 PM Signed Patient was due to test INR today. Will continue to monitor for results. Follow up in one week if no results received. Patient's INR Goal range is - 1.5-2.0 PT INR (no units) Date Value 03/14/2022 1.4 biotel 10/12/2021 2.7 07/30/2021 3.6 biotel INR Home CoaguChek (no units) Date Value 05/30/2024 2.1 05/10/2024 2.7 04/18/2024 2.2 Patient is in titration phase - No Patient has dosing provided until next INR - Yes Patient is on an injectable anticoagulant - No Allergies As of Date: 05/31/2024 Noted Allergy Reaction PENICILLINS 10/22/2007 16 - Unknown Comments: childhood TEGADERM AG MESH (SILVER) 09/06/2020 2 - Rash 7 - Swelling Date Reviewed: 06/17/2023 Reviewed by: Kaylie Lugo MA - Fully Assessed Reason for Visit: Anticoagulation Telephone Fu [148] Cmt: Home INR Result Prescriptions as of 06/14/2024 - semaglutide, weight loss, (WEGOVY) 2.4 mg/0.75 mL pen injector Inject 2.4 mg under the skin one time a week. - metoprolol succinate ER (TOPROL XL) 100 mg Take 1 tablet by mouth once daily. - losartan (COZAAR) 100 mg tablet Take 1 tablet by mouth once daily. - tamsulosin (FLOMAX) 0.4 mg Take 0.4 mg by mouth once daily. - warfarin (COUMADIN) 5 mg tablet 7.5 mg every Mon, Fri; 5 mg all other days - pantoprazole DR (PROTONIX) 40 mg tablet Take 1 tablet by mouth as needed. - aspirin 81 mg chewable tablet 1 tablet by ORAL/FEEDING TUBE route once daily. - buPROPion SR (ZYBAN SR; WELLBUTRIN SR) 150 mg 12 hr tablet Take by mouth twice daily. - p-ephed hcl/cetirizine hcl(ZYRTEC-D 5 MG-120 MG 12 HR TAB) Take one(1) tablet two(2) times daily. - ALBUTEROL 90 MCG/ACTUATION AEROSOL INHALER Inhale one(1) - two(2) puffs four(4) times a day as needed for wheezing and shortness of breath. Problem List As Of Date 05/31/2024 Noted Resolved Esophageal obstruction [K22.2] 12/31/2010 Esophageal obstruction due to food impaction [T*01/19/2015 Chronic antral gastritis [K29.50] 02/16/2015 Gastroesophageal reflux disease with esophagiti*02/16/2015 Obesity, Class I, BMI 30-34.9 [E66.811] 09/08/2020 Essential hypertension [I10] 09/08/2020 Severe aortic stenosis [I35.0] 09/08/2020 Discharge planning issues [Z75.8] 09/08/2020 Preop testing [Z01.818] 09/08/2020 On mechanically assisted ventilation (HCC) [Z99*09/12/2020 09/13/2020 Postoperative pain [G89.18] 09/12/2020 Stress hyperglycemia [R73.9] 09/12/2020 09/16/2020 Pleural effusion [J90] 09/13/2020 High bilirubin [R17] 09/14/2020 Liver enzyme elevation [R74.8] 09/14/2020 Encounter for support and coordination of trans*09/15/2020 Encounter for monitoring warfarin therapy [Z51.*09/16/2020 detention current use of anticoagu (more content not included)... Normal [facility] Testosterone, Total / Freeon 05-18-2024 TESTOSTER,FREE 24.51 ng/dL Abnormal 5.00-21.00 [facility] Comment on above: Order Comment: Order Date: 05/04/24 Order Info: 0024-1 - TESTF N Performed By: #### L 3100.5310, L501.9520 #### [facility] [address] [place], [place], [address] TESTOSTER,TOTAL 801 ng/dL Normal 264-916 [facility] Comment on above: Order Comment: Order Date: 05/04/24 Order Info: 0024-1 - TESTF N Result Comment: Adul t male reference interval is based on a population of healthy nonobese males (BMI <30) between 19 and 39 years old. Chrystal et.al. JCEM 2017,102;7287-2383. PMID: [id number]. Performed By: #### L 3100.5310, L501.9520 #### [facility] [address] [place], [address] TESTOSTERONE,%F 3.06 Normal 1.50-4.20 [facility] Comment on above: Order Comment: Order Date: 05/04/24 Order Info: 0024-1 - TESTF N Result Comment: Perf ormed at: [facility] [address] [place], [place] [id number] Wire Coiler Machine Operator: William Lucas PhD, Phone: [phone] Performed at: [facility] Lab[address] [id number] Wire Coiler Machine Operator: Madie Velasco MD, Phone: [phone] Performed By: #### L 3100.5310, L501.9520 #### [facility] [address] [place], [address] CBC W/Diff, Automatedon 04-22 Absolute Lymph 2.15 X10 3/uL Normal 0.83-4.51 [facility] Comment on above: Order Comment: Order Date: 05/04/24 Order Info: 0184-1 - CBCD Performed By: #### L 100.0100, L501.9910, L500.4050, L502.0250, L500.4100 #### [facility] [address] [place], [address] Absolute Neut 3.8 X10 3/uL Normal 2.0-7.7 [facility] Comment on above: Order Comment: Order Date: 05/04/24 Order Info: 0184-1 - CBCD Performed By: #### L 100.0100, L501.9910, L500.4050, L502.0250, L500.4100 #### [facility] [address] [place], [address] Basophils/100 WBC (Bld) 0.6 % Normal 0-1 [facility] Comment on above: Order Comment: Order Date: 05/04/24 Order Info: 0184-1 - CBCD Performed By: #### L 100.0100, L501.9910, L500.4050, L502.0250, L500.4100 #### [facility] [address] [place], [address] Eosinophils/100 WBC (Bld) 6.6 % High 0-5 [facility] Comment on above: Order Comment: Order Date: 05/04/24 Order Info: 0184-1 - CBCD Performed By: #### L 100.0100, L501.9910, L500.4050, L502.0250, L500.4100 #### [facility] [address] [place], [address] Erythrocyte distribution width (RBC) [Ratio] 13.1 % Normal 11.6-14.6 [facility] Comment on above: Order Comment: Order Date: 05/04/24 Order Info: 0184-1 - CBCD Performed By: #### L 100.0100, L501.9910, L500.4050, L502.0250, L500.4100 #### [facility] [address] [facility] [place], [address] Hematocrit (Bld) [Volume fraction] 42.3 % Normal 40-54 [facility] Comment on above: Order Comment: Order Date: 05/04/24 Order Info: 0184- - CBCD Performed By: #### L 100.0100, L501.9910, L500.4050, L502.0250, L500.4100 #### [facility] [address] [facility] [place], [address] Hemoglobin (Bld) [Mass/Vol] 14.3 g/dL Normal 13.0-16.5 [facility] Comment on above: Order Comment: Order Date: 05/04/24 Order Info: 0184-1 - CBCD Performed By: #### L 100.0100, L501.9910, L500.4050, L502.0250, L500.4100 #### [facility] [address] [place], [address] IG% 0.300 Normal 0.0-0.9 [facility] Comment on above: Order Comment: Order Date: 05/04/24 Order Info: 0184-1 - CBCD Result Comment: IG% - Immature Granulocytes (promyelocytes, myelocytes and metamyelocytes) > 1% indicates that a LEFT SHIFT is Present. Performed By: #### L 100.0100, L501.9910, L500.4050, L502.0250, L500.4100 #### [facility] [address] [place], [address] Lymphocytes/100 WBC (Bld) 30.9 % Normal 19-41 [facility] Comment on above: Order Comment: Order Date: 05/04/24 Order Info: 0184-1 - CBCD Performed By: #### L 100.0100, L501.9910, L500.4050, L502.0250, L500.4100 #### [facility] [address] [place], [address] MCH (RBC) [Entitic mass] 29.5 pg Normal 27.0-32.0 [facility] Comment on above: Order Comment: Order Date: 05/04/24 Order Info: 0184-1 - CBCD Performed By: #### L 100.0100, L501.9910, L500.4050, L502.0250, L500.4100 #### [facility] [address] [place], [address] MCHC (RBC) [Mass/Vol] 33.8 g/dL Normal 32-36 [facility] Comment on above: Order Comment: Order Date: 05/04/24 Order Info: 0184-1 - CBCD Performed By: #### L 100.0100, L501.9910, L500.4050, L502.0250, L500.4100 #### [facility] [address] [place], [address] MCV (RBC) [Entitic vol] 87.4 fL Normal 80-94 [facility] Comment on above: Order Comment: Order Date: 05/04/24 Order Info: 0184-1 - CBCD Performed By: #### L 100.0100, L501.9910, L500.4050, L502.0250, L500.4100 #### [facility] [address] [place], [address] Monocytes/100 WBC (Bld) 6.8 % Normal 0-10 [facility] Comment on above: Order Comment: Order Date: 05/04/24 Order Info: 0184-1 - CBCD Performed By: #### L 100.0100, L501.9910, L500.4050, L502.0250, L500.4100 #### [facility] [address] [place], [address] Neutrophils/100 WBC (Bld) 54.8 % Normal 47-70 [facility] Comment on above: Order Comment: Order Date: 05/04/24 Order Info: 0184-1 - CBCD Performed By: #### L 100.0100, L501.9910, L500.4050, L502.0250, L500.4100 #### [facility] [address] [place], [address] Nucleated RBC (Bld) [#/Vol] 0 10*3/uL Normal 0-5 [facility] Comment on above: Order Comment: Order Date: 05/04/24 Order Info: 0184-1 - CBCD Performed By: #### L 100.0100, L501.9910, L500.4050, L502.0250, L500.4100 #### [facility] [address] [place], [address] Platelet mean volume (Bld) [Entitic vol] 8.9 fL Normal 6.2-12.0 [facility] Comment on above: Order Comment: Order Date: 05/04/24 Order Info: 0184-1 - CBCD Performed By: #### L 100.0100, L501.9910, L500.4050, L502.0250, L500.4100 #### [facility] [address] [place], [address] Platelets (Bld) [#/Vol] 190 10*3/uL Normal 150-450 [facility] Comment on above: Order Comment: Order Date: 05/04/24 Order Info: 0184-1 - CBCD Performed By: #### L 100.0100, L501.9910, L500.4050, L502.0250, L500.4100 #### [facility] [address] [place], [address] RBC (Bld) [#/Vol] 4.84 10*6/uL Normal 4.6-6.2 [facility] Comment on above: Order Comment: Order Date: 05/04/24 Order Info: 0184-1 - CBCD Performed By: #### L 100.0100, L501.9910, L500.4050, L502.0250, L500.4100 #### [facility] [address] [place], [address] RDW SD 41.6 fl Normal 35.1-43.9 [facility] Comment on above: Order Comment: Order Date: 05/04/24 Order Info: 0184-1 - CBCD Performed By: #### L 100.0100, L501.9910, L500.4050, L502.0250, L500.4100 #### [facility] [address] [place], [address] WBC (Bld) [#/Vol] 7.0 10*3/uL Normal 4.4-11.0 [facility] Comment on above: Order Comment: Order Date: 05/04/24 Order Info: 0184-1 - CBCD Performed By: #### L 100.0100, L501.9910, L500.4050, L502.0250, L500.4100 #### [facility] [address] [place], [address] Comprehensive Metabolic Prof ilon 05-14-2024 Albumin [Mass/Vol] 3.5 g/dL Normal 3.2-5.0 [facility] Comment on above: Order Comment: DR ISIDORO BARRAZA ORDERED PSA DR VANEGAS ORDERED LIPID, TSH, PSA, CBCD, CMP, TESTF, MIACRE Order Date: 05/04/24 Order Info: 785-04 - CMP Order Info: - LIPID Order Info: 3 - TSH Order Info: 2856-04 - PSA Performed By: #### L 100.0100, L501.9910, L500.4050, L502.0250, L500.4100 #### [facility] [address] [place], [address] Albumin/Globulin [Mass ratio] 1.1 {ratio} Normal 0.9-2.4 [facility] Comment on above: Order Comment: DR ISIDORO BARRAZA ORDERED PSA DR VANEGAS ORDERED LIPID, TSH, PSA, CBCD, CMP, TESTF, MIACRE Order Date: 05/04/24 Order Info: 785-04 - CMP Order Info: - LIPID Order Info: 3015-06 - TSH Order Info: 2856-04 - PSA Performed By: #### L 100.0100, L501.9910, L500.4050, L502.0250, L500.4100 #### [facility] [address] [place], [address] ALK P 72 U/L Normal 45-117 [facility] Comment on above: Order Comment: DR ISIDORO BARRAZA ORDERED PSA DR VANEGAS ORDERED LIPID, TSH, PSA, CBCD, CMP, TESTF, MIACRE Order Date: 05/04/24 Order Info: 785-04 - CMP Order Info: - LIPID Order Info: 3015-06 - TSH Order Info: 2856-04 - PSA Performed By: #### L 100.0100, L501.9910, L500.4050, L502.0250, L500.4100 #### [facility] [address] [place], [address] ALT [Catalytic activity/Vol] 27 U/L Normal 16-61 [facility] Comment on above: Order Comment: DR ISIDORO BARRAZA ORDERED PSA DR VANEGAS ORDERED LIPID, TSH, PSA, CBCD, CMP, TESTF, MIACRE Order Date: 05/04/24 Order Info: 785-04 - CMP Order Info: 23100-1 - LIPID Order Info: 3 - TSH Order Info: 2856-04 - PSA Performed By: #### L 100.0100, L501.9910, L500.4050, L502.0250, L500.4100 #### [facility] [address] [place], [address] AST [Catalytic activity/Vol] 21 U/L Normal 15-37 [facility] Comment on above: Order Comment: DR ISIDORO BARRAZA ORDERED PSA DR VANEGAS ORDERED LIPID, TSH, PSA, CBCD, CMP, TESTF, MIACRE Order Date: 05/04/24 Order Info: 785-04 - CMP Order Info: - LIPID Order Info: 3015-06 - TSH Order Info: 2856-04 - PSA Performed By: #### L 100.0100, L501.9910, L500.4050, L502.0250, L500.4100 #### [facility] [address] [place], [address] Bilirubin [Mass/Vol] 0.70 mg/dL Normal 0.20-1.00 [facility] Comment on above: Order Comment: DR ISIDORO BARRAZA ORDERED PSA DR VANEGAS ORDERED LIPID, TSH, PSA, CBCD, CMP, TESTF, MIACRE Order Date: 05/04/24 Order Info: 785-04 - CMP Order Info: - LIPID Order Info: 3015-06 - TSH Order Info: 2856-04 - PSA Result Comment: For patients on eltrombopag therapy, use of Dimension [place] TBIL is not recommended. Performed By: #### L 100.0100, L501.9910, L500.4050, L502.0250, L500.4100 #### [facility] [address] [place], [address] BUN/CRE 9.2 RATIO Low 10-20 [facility] Comment on above: Order Comment: DR ISIDORO BARRAZA ORDERED PSA DR VANEGAS ORDERED LIPID, TSH, PSA, CBCD, CMP, TESTF, MIACRE Order Date: 05/04/24 Order Info: 785-04 - CMP Order Info: - LIPID Order Info: 3 - TSH Order Info: 2856-04 - PSA Performed By: #### L 100.0100, L501.9910, L500.4050, L502.0250, L500.4100 #### [facility] [address] [place], [address] CA,Total 8.7 mg/dL Normal 8.5-10.1 [facility] Comment on above: Order Comment: DR ISIDORO BARRAZA ORDERED PSA DR VANEGAS ORDERED LIPID, TSH, PSA, CBCD, CMP, TESTF, MIACRE Order Date: 05/04/24 Order Info: 785-04 - CMP Order Info: - LIPID Order Info: 3015-06 - TSH Order Info: 2856-04 - PSA Performed By: #### L 100.0100, L501.9910, L500.4050, L502.0250, L500.4100 #### [facility] [address] [place], [address] Chloride [Moles/Vol] 107 mmol/L Normal 98-107 [facility] Comment on above: Order Comment: DR ISIDORO BARRAZA ORDERED PSA DR VANEGAS ORDERED LIPID, TSH, PSA, CBCD, CMP, TESTF, MIACRE Order Date: 05/04/24 Order Info: 785-04 - CMP Order Info: - LIPID Order Info: 3 - TSH Order Info: 2856-04 - PSA Performed By: #### L 100.0100, L501.9910, L500.4050, L502.0250, L500.4100 #### [facility] [address] [place], [address] CO2 [Moles/Vol] 27.0 mmol/L Normal 21.0-32.0 [facility] Comment on above: Order Comment: DR ISIDORO BARRAZA ORDERED PSA DR VANEGAS ORDERED LIPID, TSH, PSA, CBCD, CMP, TESTF, MIACRE Order Date: 05/04/24 Order Info: 785-04 - CMP Order Info: - LIPID Order Info: 3015-06 - TSH Order Info: 2856-04 - PSA Performed By: #### L 100.0100, L501.9910, L500.4050, L502.0250, L500.4100 #### [facility] [address] [place], [place], [address] Creatinine [Mass/Vol] 1.19 mg/dL Normal 0.70-1.30 [facility] Comment on above: Order Comment: DR ISIDORO BARRAZA ORDERED PSA DR VANEGAS ORDERED LIPID, TSH, PSA, CBCD, CMP, TESTF, MIACRE Order Date: 05/04/24 Order Info: 785-04 - CMP Order Info: - LIPID Order Info: 3015-06 - TSH Order Info: 2856-04 - PSA Result Comment: The validity of the calculated GFR GFRAA in patients over 70 years has not been determined. Clinical correlation is essential. Performed By: #### L 100.0100, L501.9910, L500.4050, L502.0250, L500.4100 #### [facility] [address] [place], [place], [address] EST GFR - AA 81 mL/min Normal >60 [facility] Comment on above: Order Comment: DR ISIDORO BARRAZA ORDERED PSA DR VANEGAS ORDERED LIPID, TSH, PSA, CBCD, CMP, TESTF, MIACRE Order Date: 05/04/24 Order Info: 785-04 - CMP Order Info: - LIPID Order Info: 3015-06 - TSH Order Info: 2856-04 - PSA Result Comment: Afri can [place] GFR Calc Performed By: #### L 100.0100, L501.9910, L500.4050, L502.0250, L500.4100 #### [facility] [address] [place], [address] GAP 3 Low 5-15 [facility] Comment on above: Order Comment: DR ISIDORO BARRAZA ORDERED PSA DR VANEGAS ORDERED LIPID, TSH, PSA, CBCD, CMP, TESTF, MIACRE Order Date: 05/04/24 Order Info: 785-04 - CMP Order Info: - LIPID Order Info: 3015-06 - TSH Order Info: 2856-04 - PSA Performed By: #### L 100.0100, L501.9910, L500.4050, L502.0250, L500.4100 #### [facility] [address] [place], [address] GFR/1.73 sq M.predicted among non-blacks MDRD (S/P/Bld) [Vol rate/Area] 67 mL/min/{1.73_m2} Normal >60 [facility] Comment on above: Order Comment: DR ISIDORO BARRAZA ORDERED PSA DR VANEGAS ORDERED LIPID, TSH, PSA, CBCD, CMP, TESTF, MIACRE Order Date: 05/04/24 Order Info: 785-04 - CMP Order Info: - LIPID Order Info: 3015-06 - TSH Order Info: 2856-04 - PSA Result Comment: Non- GFR Calc Performed By: #### L 100.0100, L501.9910, L500.4050, L502.0250, L500.4100 #### [facility] [address] [place], [address] Globulin (S) [Mass/Vol] 3.2 g/dL Normal 2.2-4.2 [facility] Comment on above: Order Comment: DR ISIDORO BARRAZA ORDERED PSA DR VANEGAS ORDERED LIPID, TSH, PSA, CBCD, CMP, TESTF, MIACRE Order Date: 05/04/24 Order Info: 785-04 - CMP Order Info: - LIPID Order Info: 3015-06 - TSH Order Info: 2856-04 - PSA Performed By: #### L 100.0100, L501.9910, L500.4050, L502.0250, L500.4100 #### [facility] [address] [place], [address] Glucose [Mass/Vol] 118 mg/dL High 74-106 [facility] Comment on above: Order Comment: DR ISIDORO BARRAZA ORDERED PSA DR VANEGAS ORDERED LIPID, TSH, PSA, CBCD, CMP, TESTF, MIACRE Order Date: 05/04/24 Order Info: 785-04 - CMP Order Info: - LIPID Order Info: 3015-06 - TSH Order Info: 2856-04 - PSA Result Comment: Fast ing Glucose result from 100 to 125 mg/dL suggests IMPAIRED HOMEOSTASIS per A.D.A. criteria. Performed By: #### L 100.0100, L501.9910, L500.4050, L502.0250, L500.4100 #### [facility] [address] [place], [address] Potassium [Moles/Vol] 4.1 mmol/L Normal 3.5-5.1 [facility] Comment on above: Order Comment: DR ISIDORO BARRAZA ORDERED PSA DR VANEGAS ORDERED LIPID, TSH, PSA, CBCD, CMP, TESTF, MIACRE Order Date: 05/04/24 Order Info: 785-04 - CMP Order Info: - LIPID Order Info: 3015-06 - TSH Order Info: 2856-04 - PSA Performed By: #### L 100.0100, L501.9910, L500.4050, L502.0250, L500.4100 #### [facility] [address] [place], [address] Sodium [Moles/Vol] 138 mmol/L Normal 136-145 [facility] Comment on above: Order Comment: DR ISIDORO BARRAZA ORDERED PSA DR VANEGAS ORDERED LIPID, TSH, PSA, CBCD, CMP, TESTF, MIACRE Order Date: 05/04/24 Order Info: 785-04 - CMP Order Info: - LIPID Order Info: 3015-06 - TSH Order Info: 1 - PSA Performed By: #### L 100.0100, L501.9910, L500.4050, L502.0250, L500.4100 #### [facility] [address] [place], [address] T PROT 6.7 g/dL Normal 6.4-8.2 [facility] Comment on above: Order Comment: DR ISIDORO BARRAZA ORDERED PSA DR VANEGAS ORDERED LIPID, TSH, PSA, CBCD, CMP, TESTF, MIACRE Order Date: 05/04/24 Order Info: 785-04 - CMP Order Info: - LIPID Order Info: 3015-06 - TSH Order Info: 2856-04 - PSA Performed By: #### L 100.0100, L501.9910, L500.4050, L502.0250, L500.4100 #### [facility] [address] [place], [address] Urea nitrogen [Mass/Vol] 11 mg/dL Normal 7-18 [facility] Comment on above: Order Comment: DR ISIDORO BARRAZA ORDERED PSA DR VANEGAS ORDERED LIPID, TSH, PSA, CBCD, CMP, TESTF, MIACRE Order Date: 05/04/24 Order Info: 785-04 - CMP Order Info: - LIPID Order Info: 3015-06 - TSH Order Info: 2856-04 - PSA Performed By: #### L 100.0100, L501.9910, L500.4050, L502.0250, L500.4100 #### [facility] [facility] [address] [place], [address] Lipid Profileon 05-14-2024 Cholesterol [Mass/Vol] 188 mg/dL Normal 200 [facility] Comment on above: Order Comment: DR ISIDORO BARRAZA ORDERED PSA DR VANEGAS ORDERED LIPID, TSH, PSA, CBCD, CMP, TESTF, MIACRE Order Date: 05/04/24 Order Info: [id number] - CMP Order Info: [id number] - LIPID Order Info: [id number] - TSH Order Info: [id number] - PSA Result Comment: <200 mg/dL Desirable 200-240 mg/dL Borderline >240 mg/dL High Risk Performed By: #### L 100.0100, L501.9910, L500.4050, L502.0250, L500.4100 #### [facility] [address] [place], [address] Cholesterol in HDL [Mass/Vol] 56 mg/dL Normal [facility] Comment on above: Order Comment: DR ISIDORO BARRAZA ORDERED PSA DR VANEGAS ORDERED LIPID, TSH, PSA, CBCD, CMP, TESTF, MIACRE Order Date: 05/04/24 Order Info: [id number] - CMP Order Info: - LIPID Order Info: [id number] - TSH Order Info: [id number] - PSA Result Comment: The drugs N-Acetylcysteine and Metamizole may falsely depress this assay. Reference Range HDL <40 mg/dL Low HDL Cholesterol HDL >or= 60 mg/dL High HDL Cholesterol Performed By: #### L 100.0100, L501.9910, L500.4050, L502.0250, L500.4100 #### [facility] [address] [place], [address] Cholesterol in LDL [Mass/Vol] 105 mg/dL Normal 0-130 [facility] Comment on above: Order Comment: DR ISIDORO BARRAZA ORDERED PSA DR VANEGAS ORDERED LIPID, TSH, PSA, CBCD, CMP, TESTF, MIACRE Order Date: 05/04/24 Order Info: [id number] - CMP Order Info: - LIPID Order Info: [id number] - TSH Order Info: [id number] - PSA Performed By: #### L 100.0100, L501.9910, L500.4050, L502.0250, L500.4100 #### [facility] [address] [place], [address] Cholesterol in VLDL [Mass/Vol] 27 mg/dL Normal 5-40 [facility] Comment on above: Order Comment: DR ISIDORO BARRAZA ORDERED PSA DR VANEGAS ORDERED LIPID, TSH, PSA, CBCD, CMP, TESTF, MIACRE Order Date: 05/04/24 Order Info: [id number] - CMP Order Info: [id number] - LIPID Order Info: [id number] - TSH Order Info: [id number] - PSA Performed By: #### L 100.0100, L501.9910, L500.4050, L502.0250, L500.4100 #### [facility] [address] [place], [place], [address] Triglyceride [Mass/Vol] 137 mg/dL Normal [facility] Comment on above: Order Comment: DR ISIDORO BARRAZA ORDERED PSA DR VANEGAS ORDERED LIPID, TSH, PSA, CBCD, CMP, TESTF, MIACRE Order Date: 05/04/24 Order Info: [id number] - CMP Order Info: - LIPID Order Info: [id number] - TSH Order Info: [id number] - PSA Result Comment: The drugs N-Acetylcysteine and Metamizole may falsely depress this assay. Serum Triglycerides Reference Interval Normal <150 mg/dL Borderline high 150 - 199 mg/dL High 200 - 499 mg/dL Very High > or = 500 mg/dL Performed By: #### L 100.0100, L501.9910, L500.4050, L502.0250, L500.4100 #### [facility] [address] [place], [place], [address] Microalb:Creat Ratio,Random URon 05-14-2024 Creatinine [Mass/Vol] 233.00 mg/dL Normal NO RANGE EST. [facility] Comment on above: Order Comment: Order Date: 05/04/24 Order Info: [id number] - MIACRE Performed By: #### L 100.0100, L501.9910, L500.4050, L502.0250, L500.4100 #### [facility] [address] [place], [place], [address] MALB:CRE 4.5 mg/g CRE Normal <30 mg/g CRE [facility] Comment on above: Order Comment: Order Date: 05/04/24 Order Info: [id number] - MIACRE Performed By: #### L 100.0100, L501.9910, L500.4050, L502.0250, L500.4100 #### [facility] [address] [place], [address] MICROALBUMIN,UR 10.4 mg/L Normal NO RANGE EST. [facility] Comment on above: Order Comment: Order Date: 05/04/24 Order Info: [id number] - MIACRE Performed By: #### L 100.0100, L501.9910, L500.4050, L502.0250, L500.4100 #### [facility] [address] [place], [address] PSA,Total - Annual Screenon 05-14-2024 PSA,TOT SCREEN 6.04 ng/mL High 0.00-4.00 [facility] Comment on above: Order Comment: DR ISIDORO BARRAZA ORDERED PSA DR VANEGAS ORDERED LIPID, TSH, PSA, CBCD, CMP, TESTF, MIACRE Order Date: 05/04/24 Order Info: [id number] - CMP Order Info: [id number] - LIPID Order Info: [id number] - TSH Order Info: [id number] - PSA Result Comment: This test was performed using the TPSA assay method for the [employer] chemistry system. Values obtained with different assay methods cannot be used interchangably. When changing PSA assays in the course of monitoring a patient, additional sequential testing should be carried out to confirm baseline values. Performed By: #### L 100.0100, L501.9910, L500.4050, L502.0250, L500.4100 #### [facility] [address] [place], [address] Thyroid Stim Hormone (TSH)on 05-14-2024 TSH 1.330 uIU/mL Normal 0.358-3.740 [facility] Comment on above: Order Comment: DR ISIDORO BARRAZA ORDERED PSA DR VANEGAS ORDERED LIPID, TSH, PSA, CBCD, CMP, TESTF, MIACRE Order Date: 05/04/24 Order Info: [id number] - CMP Order Info: [id number] - LIPID Order Info: [id number] - TSH Order Info: [id number] - PSA Performed By: #### L 3100.5310, L501.9520 #### [facility] [address] [place], [address] [facility] ARSENIO VILLALOBOS ([id number]) 1965 M Date Time Provider Department 05/10/24 MELANY WRIGHT During your visit today, we recorded the following information about you: Melany Wright sommer 05/10/2024 10:45 AM Signed [facility] Anticoagulation Episode Summary Anticoagulation Care Providers Provider Role Specialty Phone number Juan Willis MD Referring Cardiology [phone] Arsenio Villalobos is a 58 year old year old male patient being evaluated today for a Telemanagement visit. Patient is currently on the following anticoagulant(s) Warfarin. Labs PT INR (no units) Date Value 03/14/2022 1.4 biotel 10/12/2021 2.7 07/30/2021 3.6 biotel INR Home CoaguChek (no units) Date Value 05/10/2024 2.7 04/18/2024 2.2 04/01/2024 2.4 CrCl cannot be calculated (Patient's most recent lab result is older than the maximum 180 days allowed.). ALLERGIES Allergen Reactions Penicillins Unknown childhood Tegaderm Ag Mesh [S* Rash, Swelling Indication for Warfarin: Anticoagulation Episode Summary Current INR goal: 1.5-2.0 Assessment: INR result of 2.7 is SUPRAtherapeutic due to: unknown cause - did not speak to patient Plan: Current Warfarin Dosing As of 05/10/2024 Full warfarin instructions: 7.5 mg every Fri; 5 mg all other days Left voice message Advised patient to decrease total weekly regimen Next INR check due on 05/24/2024 Patient instructed to call [facility] at [phone] with any questions or concerns. Melany Wright [facility] Clinical Pharmacist, [facility] Pager: [phone] Melany Wright [facility] 05/24/2024 4:27 PM Signed Patient was due to test INR today. Will continue to monitor for results. Follow up in one week if no results received. Patient's INR Goal range is - 1.5-2.0 PT INR (no units) Date Value 03/14/2022 1.4 biotel 10/12/2021 2.7 07/30/2021 3.6 biotel INR Home CoaguChek (no units) Date Value 05/10/2024 2.7 04/18/2024 2.2 04/01/2024 2.4 Patient is in titration phase - No Patient has dosing provided until next INR - Yes Patient is on an injectable anticoagulant - No Allergies As of Date: 05/10/2024 Noted Allergy Reaction PENICILLINS 10/22/2007 16 - Unknown Comments: childhood TEGADERM AG MESH (SILVER) 09/06/2020 2 - Rash 7 - Swelling Date Reviewed: 06/17/2023 Reviewed by: Kaylie Lugo MA - Fully Assessed Reason for Visit: Anticoagulation Telephone Fu [148] Cmt: Home INR Result Prescriptions as of 05/24/2024 - semaglutide, weight loss, (WEGOVY) 2.4 mg/0.75 mL pen injector Inject 2.4 mg under the skin one time a week. - metoprolol succinate ER (TOPROL XL) 100 mg Take 1 tablet by mouth once daily. - losartan (COZAAR) 100 mg tablet Take 1 tablet by mouth once daily. - tamsulosin (FLOMAX) 0.4 mg Take 0.4 mg by mouth once daily. - warfarin (COUMADIN) 5 mg tablet 7.5 mg every Mon, Fri; 5 mg all other days - pantoprazole DR (PROTONIX) 40 mg tablet Take 1 tablet by mouth as needed. - aspirin 81 mg chewable tablet 1 tablet by ORAL/FEEDING TUBE route once daily. - buPROPion SR (ZYBAN SR; WELLBUTRIN SR) 150 mg 12 hr tablet Take by mouth twice daily. - p-ephed hcl/cetirizine hcl(ZYRTEC-D 5 MG-120 MG 12 HR TAB) Take one(1) tablet two(2) times daily. - ALBUTEROL 90 MCG/ACTUATION AEROSOL INHALER Inhale one(1) - two(2) puffs four(4) times a day as needed for wheezing and shortness of breath. Problem List As Of Date 05/10/2024 Noted Resolved Esophageal obstruction [K22.2] 12/31/2010 Esophageal obstruction due to food impaction [T*01/19/2015 Chronic antral gastritis [K29.50] 02/16/2015 Gastroesophageal reflux disease with esophagiti*02/16/2015 Obesity, Class I, BMI 30-34.9 [E66.811] 09/08/2020 Essential hypertension [I10] 09/08/2020 Severe aortic stenosis [I35.0] 09/08/2020 Discharge planning issues [Z75.8] 09/08/2020 Preop testing [Z01.818] 09/08/2020 On mechanically assisted ventilation (HCC) [Z99*09/12/2020 09/13/2020 Postoperative pain [G89.18] 09/12/2020 Stress hyperglycemia [R73.9] 09/12/2020 09/16/2020 Pleural effusion [J90] 09/13/2020 High bilirubin [R17] 09/14/2020 Liver enzyme elevation [R74.8] 09/14/2020 Encounter for support and coordination of trans*09/15/2020 Encounter for monitoring warfarin therapy [Z51.*09/16/2020 detention current use of anticoagulant [Z79.01] 05/31/2021 H/O mechanical aortic valve replacement [Z95.2] 05/31/2021 Bicuspid aortic valve [Q23.81] 06/13/2022 Encounter Status:Closed by MELANY WRIGHT on 05/10/24 [facility] 04-19-2024 [facility] ARSENIO VILLALOBOS ([id number]) 1965 M Date Time Provider Department 04/19/24 MELANY WRIGHT During your visit today, we recorded the following information about you: Melany Wright RPh 04/19/2024 10:58 AM Signed [facility] Anticoagulation Episode Summary Anticoagulation Care Providers Provider Role Specialty Phone number Juan Willis MD Referring Cardiology [phone] Arsenio Villalobos is a 58 year old year old male patient being evaluated today for a Telemanagement visit. Patient is currently on the following anticoagulant(s) Warfarin. Labs PT INR (no units) Date Value 03/14/2022 1.4 biotel 10/12/2021 2.7 07/30/2021 3.6 biotel INR Home CoaguChek (no units) Date Value 04/18/2024 2.2 04/01/2024 2.4 03/11/2024 2.1 CrCl cannot be calculated (Patient's most recent lab result is older than the maximum 180 days allowed.). ALLERGIES Allergen Reactions Penicillins Unknown childhood Tegaderm Ag Mesh [S* Rash, Swelling Indication for Warfarin: Anticoagulation Episode Summary Current INR goal: 1.5-2.0 Assessment: INR result of 2.2 is SUPRAtherapeutic due to: unknown cause - did not speak to patient Plan: Current Warfarin Dosing As of 04/19/2024 Full warfarin instructions: 04/19: 5 mg; Otherwise 7.5 mg every Mon, Fri; 5 mg all other days Left voice message Advised patient to decrease dose for 1 day only then resume weekly regimen Next INR check due on 05/03/2024 Patient instructed to call [facility] at [phone] with any questions or concerns. Melany Wright [facility] Clinical Pharmacist, [facility] Pager: [phone] Melany Wright [facility] 05/03/2024 3:06 PM Signed Patient was due to test INR today. Will continue to monitor for results. Will follow up in one week if no results received. Allergies As of Date: 04/19/2024 Noted Allergy Reaction PENICILLINS 10/22/2007 16 - Unknown Comments: childhood TEGADERM AG MESH (SILVER) 09/06/2020 2 - Rash 7 - Swelling Date Reviewed: 06/17/2023 Reviewed by: Kaylie Lugo MA - Fully Assessed Reason for Visit: Anticoagulation Telephone Fu [148] Cmt: Home INR Result Prescriptions as of 05/03/2024 - semaglutide, weight loss, (WEGOVY) 2.4 mg/0.75 mL pen injector Inject 2.4 mg under the skin one time a week. - metoprolol succinate ER (TOPROL XL) 100 mg Take 1 tablet by mouth once daily. - losartan (COZAAR) 100 mg tablet Take 1 tablet by mouth once daily. - tamsulosin (FLOMAX) 0.4 mg Take 0.4 mg by mouth once daily. - warfarin (COUMADIN) 5 mg tablet 7.5 mg every Mon, Fri; 5 mg all other days - pantoprazole DR (PROTONIX) 40 mg tablet Take 1 tablet by mouth as needed. - aspirin 81 mg chewable tablet 1 tablet by ORAL/FEEDING TUBE route once daily. - buPROPion SR (ZYBAN SR; WELLBUTRIN SR) 150 mg 12 hr tablet Take by mouth twice daily. - p-ephed hcl/cetirizine hcl(ZYRTEC-D 5 MG-120 MG 12 HR TAB) Take one(1) tablet two(2) times daily. - ALBUTEROL 90 MCG/ACTUATION AEROSOL INHALER Inhale one(1) - two(2) puffs four(4) times a day as needed for wheezing and shortness of breath. Problem List As Of Date 04/19/2024 Noted Resolved Esophageal obstruction [K22.2] 12/31/2010 Esophageal obstruction due to food impaction [T*01/19/2015 Chronic antral gastritis [K29.50] 02/16/2015 Gastroesophageal reflux disease with esophagiti*02/16/2015 Obesity, Class I, BMI 30-34.9 [E66.811] 09/08/2020 Essential hypertension [I10] 09/08/2020 Severe aortic stenosis [I35.0] 09/08/2020 Discharge planning issues [Z75.8] 09/08/2020 Preop testing [Z01.818] 09/08/2020 On mechanically assisted ventilation (HCC) [Z99*09/12/2020 09/13/2020 Postoperative pain [G89.18] 09/12/2020 Stress hyperglycemia [R73.9] 09/12/2020 09/16/2020 Pleural effusion [J90] 09/13/2020 High bilirubin [R17] 09/14/2020 Liver enzyme elevation [R74.8] 09/14/2020 Encounter for support and coordination of trans*09/15/2020 Encounter for monitoring warfarin therapy [Z51.*09/16/2020 detention current use of anticoagulant [Z79.01] 05/31/2021 H/O mechanical aortic valve replacement [Z95.2] 05/31/2021 Bicuspid aortic valve [Q23.81] 06/13/2022 Encounter Status:Closed by MELANY WRIGHT on 04/19/24 Normal [facility] 04-02-2024 [facility] Telephone (PHAMTE) ARSENIO VILLALOBOS ([id number]) 1965 M Date Time Provider Department 04/02/24 NIKOLAI CERNA During your visit today, we recorded the following information about you: Nikolai Cerna RPh 04/02/2024 11:01 AM Signed [facility] Anticoagulation Episode Summary Anticoagulation Care Providers Provider Role Specialty Phone number Juan Willis MD Referring Cardiology [phone] Arsenio Villalobos is a 58 year old year old male patient being evaluated today for a Telemanagement visit. Patient is currently on the following anticoagulant(s) Warfarin. Labs PT INR (no units) Date Value 03/14/2022 1.4 biotel 10/12/2021 2.7 07/30/2021 3.6 biotel INR Home CoaguChek (no units) Date Value 04/01/2024 2.4 03/11/2024 2.1 02/20/2024 1.6 Hemoglobin (g/dL) Date Value 06/12/2022 14.5 10/24/2020 15.2 Hematocrit (%) Date Value 06/12/2022 43.7 10/24/2020 46.6 Platelet Count (k/uL) Date Value 06/12/2022 188 10/24/2020 286 Creatinine (mg/dL) Date Value 06/12/2022 1.05 10/24/2020 1.18 09/22/2020 1.13 09/17/2020 0.94 Bilirubin, Total (mg/dL) Date Value 06/12/2022 0.4 10/24/2020 0.4 ALT (U/L) Date Value 06/12/2022 27 10/24/2020 19 AST (U/L) Date Value 06/12/2022 29 10/24/2020 24 CrCl cannot be calculated (Patient's most recent lab result is older than the maximum 180 days allowed.). ALLERGIES Allergen Reactions Penicillins Unknown childhood Tegaderm Ag Mesh [S* Rash, Swelling Indication for Warfarin: detention current use of anticoagulant H/o mechanical aortic valve replacement Anticoagulation Episode Summary Current INR goal: 1.5-2.0 Assessment: INR result of 2.4 is SUPRAtherapeutic due to: Decreased vitamin k intake Plan: Current Warfarin Dosing As of 04/02/2024 Full warfarin instructions: 04/03: 2.5 mg; Otherwise 7.5 mg every Mon, Fri; 5 mg all other days Called and spoke to patient/caregiver Advised patient to decrease dose for 1 day only then resume weekly regimen Patient will try to eat more vitamin k foods Next home INR check scheduled on 04/16/2024 Patient verbalizes understanding of the plan. Patient denies need for refills. Patient advised to call the PAC with any medication changes, bleeding/bruising concerns, recent changes in vitamin k consumption, if any procedures are coming up, if they have been ill or in the hospital, and if they have missed any doses of warfarin. Nikolai Cerna [facility] Clinical Pharmacist, [facility]acy [facility] Pager: [phone]. Kaylen Braxton [facility] 04/16/2024 4:44 PM Signed Patient was due to test INR today. Will continue to monitor for results. Follow up in one week if no results received. Patient's INR Goal range is - 1.5-2.0 PT INR (no units) Date Value 03/14/2022 1.4 biotel 10/12/2021 2.7 07/30/2021 3.6 biotel INR Home CoaguChek (no units) Date Value 04/01/2024 2.4 03/11/2024 2.1 02/20/2024 1.6 Patient is in titration phase - No Patient has dosing provided until next INR - Yes Patient is on an injectable anticoagulant - No Kaylen Braxton [facility] Allergies As of Date: 04/02/2024 Noted Allergy Reaction PENICILLINS 10/22/2007 16 - Unknown Comments: childhood TEGADERM AG MESH (SILVER) 09/06/2020 2 - Rash 7 - Swelling Date Reviewed: 06/17/2023 Reviewed by: Kaylie Lugo MA - Fully Assessed Reason for Visit: Anticoagulation Telephone Fu [148] Cmt: INR Home Test Result Primary Visit Diagnosis:detention current use of anticoagulant [Z79.01] Other Visit Diagnosis:H/O mechanical aortic valve replacement [Z95.2] Prescriptions as of 04/16/2024 - semaglutide, weight loss, (WEGOVY) 2.4 mg/0.75 mL pen injector Inject 2.4 mg under the skin one time a week. - metoprolol succinate ER (TOPROL XL) 100 mg Take 1 tablet by mouth once daily. - losartan (COZAAR) 100 mg tablet Take 1 tablet by mouth once daily. - tamsulosin (FLOMAX) 0.4 mg Take 0.4 mg by mouth once daily. - warfarin (COUMADIN) 5 mg tablet 7.5 mg every Mon, Fri; 5 mg all other days - pantoprazole DR (PROTONIX) 40 mg tablet Take 1 tablet by mouth as needed. - aspirin 81 mg chewable tablet 1 tablet by ORAL/FEEDING TUBE route once daily. - buPROPion SR (ZYBAN SR; WELLBUTRIN SR) 150 mg 12 hr tablet Take by mouth twice daily. - p-ephed hcl/cetirizine hcl(ZYRTEC-D 5 MG-120 MG 12 HR TAB) Take one(1) tablet two(2) times daily. - ALBUTEROL 90 MCG/ACTUATION AEROSOL INHALER Inhale one(1) - two(2) puffs four(4) times a day as needed for wheezing and shortness of breath. Problem List As Of Date 04/02/2024 Noted Resolved Esophageal obstruction [K22.2] 12/31/2010 Esophageal obstruction due to food impaction [T*01/19/2015 Chronic antral gastritis [K29.50] 02/16/2015 Gastroesophageal reflux dis (more content not included)... Normal [facility] 03-11-2024 CNPN Telephone (PHAMTE) ARSENIO VILLALOBOS ([id number]) 1965 M Date Time Provider Department 03/11/24 LYDIA HANLEY During your visit today, we recorded the following information about you: Lydia Hanley, [facility] 03/11/2024 3:52 PM Signed [facility] Anticoagulation Episode Summary Anticoagulation Care Providers Provider Role Specialty Phone number Juan Willis MD Referring Cardiology [phone] Arsenio Villalobos is a 58 year old year old male patient being evaluated today for a Telemanagement visit. Patient is currently on the following anticoagulant(s) Warfarin. Labs PT INR (no units) Date Value 03/14/2022 1.4 biotel 10/12/2021 2.7 07/30/2021 3.6 biotel INR Home CoaguChek (no units) Date Value 03/11/2024 2.1 02/20/2024 1.6 02/06/2024 2.1 Hemoglobin (g/dL) Date Value 06/12/2022 14.5 10/24/2020 15.2 Hematocrit (%) Date Value 06/12/2022 43.7 10/24/2020 46.6 Platelet Count (k/uL) Date Value 06/12/2022 188 10/24/2020 286 Creatinine (mg/dL) Date Value 06/12/2022 1.05 10/24/2020 1.18 09/22/2020 1.13 09/17/2020 0.94 Bilirubin, Total (mg/dL) Date Value 06/12/2022 0.4 10/24/2020 0.4 ALT (U/L) Date Value 06/12/2022 27 10/24/2020 19 AST (U/L) Date Value 06/12/2022 29 10/24/2020 24 CrCl cannot be calculated (Patient's most recent lab result is older than the maximum 180 days allowed.). ALLERGIES Allergen Reactions Penicillins Unknown childhood Tegaderm Ag Mesh [S* Rash, Swelling Indication for Warfarin: detention current use of anticoagulant H/o mechanical aortic valve replacement Anticoagulation Episode Summary Current INR goal: 1.5-2.0 Assessment: INR result of 2.1 is therapeutic Plan: Current Warfarin Dosing As of 03/11/2024 Full warfarin instructions: 7.5 mg every Mon, Fri; 5 mg all other days Sent [employer] message Advised patient to continue current weekly dose as noted above Next home INR check scheduled on 03/25/2024 Patient advised to call the PAC with any medication changes, bleeding/bruising concerns, recent changes in vitamin k consumption, if any procedures are coming up, if they have been ill or in the hospital, and if they have missed any doses of warfarin. Lydia Hanley [facility] Clinical Pharmacist, Pharmacy Anticoagulation Clinic Pharm[facility] Pager: [phone]. Lucita Alba RPh 03/25/2024 12:38 PM Signed Patient was due to test INR today. Will continue to monitor for results. Follow up in one week if no results received. Dayanna Boone Megan R [facility] 04/01/2024 10:06 AM Signed Arsenio Villalobos was called, lvmx and reminded to test INR today or as soon as possible. Lydia Hanley, [facility] Allergies As of Date: 03/11/2024 Noted Allergy Reaction PENICILLINS 10/22/2007 16 - Unknown Comments: childhood TEGADERM AG MESH (SILVER) 09/06/2020 2 - Rash 7 - Swelling Date Reviewed: 06/17/2023 Reviewed by: Kaylie Lugo MA - Fully Assessed Reason for Visit: Anticoagulation Telephone Fu [148] Cmt: Home INR Primary Visit Diagnosis:detention current use of anticoagulant [Z79.01] Other Visit Diagnosis:H/O mechanical aortic valve replacement [Z95.2] Prescriptions as of 04/01/2024 - semaglutide, weight loss, (WEGOVY) 2.4 mg/0.75 mL pen injector Inject 2.4 mg under the skin one time a week. - metoprolol succinate ER (TOPROL XL) 100 mg Take 1 tablet by mouth once daily. - losartan (COZAAR) 100 mg tablet Take 1 tablet by mouth once daily. - tamsulosin (FLOMAX) 0.4 mg Take 0.4 mg by mouth once daily. - warfarin (COUMADIN) 5 mg tablet 7.5 mg every Mon, Fri; 5 mg all other days - pantoprazole DR (PROTONIX) 40 mg tablet Take 1 tablet by mouth as needed. - aspirin 81 mg chewable tablet 1 tablet by ORAL/FEEDING TUBE route once daily. - buPROPion SR (ZYBAN SR; WELLBUTRIN SR) 150 mg 12 hr tablet Take by mouth twice daily. - p-ephed hcl/cetirizine hcl(ZYRTEC-D 5 MG-120 MG 12 HR TAB) Take one(1) tablet two(2) times daily. - ALBUTEROL 90 MCG/ACTUATION AEROSOL INHALER Inhale one(1) - two(2) puffs four(4) times a day as needed for wheezing and shortness of breath. Problem List As Of Date 03/11/2024 Noted Resolved Esophageal obstruction [K22.2] 12/31/2010 Esophageal obstruction due to food impaction [T*01/19/2015 Chronic antral gastritis [K29.50] 02/16/2015 Gastroesophageal reflux disease with esophagiti*02/16/2015 Obesity, Class I, BMI 30-34.9 [E66.811] 09/08/2020 Essential hypertension [I10] 09/08/2020 Severe aortic stenosis [I35.0] 09/08/2020 Discharge planning issues [Z75.8] 09/08/2020 Preop testing [Z01.818] 09/08/2020 On mechanically assisted ventilation (HCC) [Z99*09/12/2020 09/13/2020 Postoperative pain [G89.18] 09/12/2020 Stress hyperglycemia [R73.9] 09/12/2020 09/16/2020 P (more content not included)... Normal [facility] Absolute lymphocyte countOrd ered By: Gilbert Vanegas on 03-03-2023 Lymphocytes Auto (Unsp spec) [#/Vol] 1.55 10*3/uL 0.83-4.51 [facility] Basophil percentageOrdered B y: Gilbert Vanegas on 03-03-2023 Basophils/100 WBC (Bld) 0.8 % 0-1 [facility] Bilirubin [Mass/Vol] 0.80 mg/dL 0.20-1.00 [facility] Comment on above: For patients on eltr ombopag therapy, use of Dimension [place]en TBIL is not recommended. Chloride [Moles/Vol] 110 mmol/L 98-107 [facility] Eosinophils/100 WBC (Bld) 9.8 % 0-5 [facility] Glucose [Mass/Vol] 93 mg/dL 74-106 [facility] Neutrophils (Bld) [#/Vol] 3.5 10*3/uL 2.0-7.7 [facility] Neutrophils/100 WBC (Bld) 56.7 % 47-70 [facility] Potassium [Moles/Vol] 4.1 mmol/L 3.5-5.1 [facility] Protein [Mass/Vol] 6.6 g/dL 6.4-8.2 [facility] Sodium [Moles/Vol] 141 mmol/L 136-145 [facility] WBC (Bld) [#/Vol] 6.2 10*3/uL 4.4-11.0 [facility] Blood erythrocytes count (nu mber/volume)Ordered By: Gilbert Vanegas on 03-03-2023 RBC (Bld) [#/Vol] 5.11 10*6/uL 4.6-6.2 [facility] Blood hemoglobin measurement (mass/volume)Ordered By: Gilbert Vanegas on 03-03-2023 Hemoglobin (Bld) [Mass/Vol] 15.5 g/dL 13.0-16.5 [facility] Blood lymphocytes/100 leukoc ytesOrdered By: Gilbert Vanegas on 03-03-2023 Lymphocytes/100 WBC (Bld) 24.9 % 19-41 [facility] Blood monocytes/100 leukocyt esOrdered By: Gilbert Vanegas on 03-03-2023 Monocytes/100 WBC (Bld) 7.5 % 0-10 [facility] Blood platelet mean volumeOr dered By: Gilbert Vanegas on 03-03-2023 Platelet mean volume (Bld) [Entitic vol] 9.4 fL 6.2-12.0 [facility] Determination of erythrocyte mean corpuscular volume (MCV)Ordered By: Gilbert Vanegas on 03-03-2023 MCV (RBC) [Entitic vol] 90.8 fL 80-94 [facility] Hematocrit Auto (Bld) [Volum e fraction]Ordered By: Gilbert Vanegas on 03-03-2023 Hematocrit (Bld) [Volume fraction] 46.4 % 40-54 [facility] Laboratory - Chemistry and C hemistry - challengeOrdered By: Gilbert Vanegas on 03-03-2023 ALP [Catalytic activity/Vol] 71 U/L 45-117 [facility] ALT [Catalytic activity/Vol] 37 U/L 16-61 [facility] CO2 [Moles/Vol] 26.0 mmol/L 21.0-32.0 [facility] Globulin (S) [Mass/Vol] 3.0 g/dL 2.2-4.2 [facility] Urea nitrogen/Creatinine [Mass ratio] 9.0 mg/mg 10-20 [facility] Laboratory - Hematology and Cell countsOrdered By: Gilbert Vanegas on 03-03-2023 Erythrocyte distribution width (RBC) [Entitic vol] 42.4 fL 35.1-43.9 [facility] Erythrocyte distribution width (RBC) [Ratio] 12.7 % 11.6-14.6 [facility] Immature granulocytes/100 WBC (Bld) 0.300 % 0.0-0.9 [facility] Comment on above: IG% - Immature Granu locytes (promyelocytes, myelocytes and metamyelocytes) > 1% indicates that a LEFT SHIFT is Present. MCH (RBC) [Entitic mass] 30.3 pg 27.0-32.0 [facility] Nucleated RBC/100 WBC (Bld) [Ratio] 0 % 0-5 [facility] MCHC Auto (RBC) [Mass/Vol]Or dered By: Gilbert Vanegas on 03-03-2023 MCHC (RBC) [Mass/Vol] 33.4 g/dL 32-36 [facility] No Panel InformationOrdered By: Gilbert Vanegas on 03-03-2023 Urine Microalbumin/Creatin ine Ratio 5.0 mg/g CRE <30 [facility] Estimated GFR (MDRD) Amer 88 mL/min >60 [facility] Comment on above: GFR Calc Estimated GFR (MDRD) Non-Af Amer 72 mL/min >60 [facility] Comment on above: Non- GFR Calc Platelets bldOrdered By: Joanne Vanegas on 03-03-2023 Platelets (Bld) [#/Vol] 189 10*3/uL 150-450 [facility] Serum or plasma albumin lizz urement (mass/volume)Ordered By: Gilbert Vanegas on 03-03-2023 Albumin [Mass/Vol] 3.6 g/dL 3.2-5.0 [facility] Serum or plasma albumin/glob ulin mass ratioOrdered By: Gilbert Vanegas on 03-03-2023 Albumin/Globulin [Mass ratio] 1.2 {ratio} 0.9-2.4 [facility] Serum or plasma calcium lizz urement (mass/volume)Ordered By: Gilbert Vanegas on 03-03-2023 Calcium [Mass/Vol] 8.8 mg/dL 8.5-10.1 [facility] Serum or plasma creatinine m easurement (mass/volume)Ordered By: Gilbert Vanegas on 03-03-2023 Creatinine [Mass/Vol] 1.11 mg/dL 0.70-1.30 [facility] Comment on above: The validity of the calculated GFR & GFRAA in patients over 70 years has not been determined. Clinical correlation is essential. Serum or plasma urea nitroge n measurement (mass/volume)Ordered By: Gilbert Vanegas on 03-03-2023 Urea nitrogen [Mass/Vol] 10 mg/dL 7-18 [facility] Thin prep Papanicolaou smear with manual screeningOrdered By: Gilbert Vanegas on 03-03-2023 Thin prep Papanicolaou smear with manual screening 13.3 mg/L NO RANGE EST. [facility] Thin prep Papanicolaou smear with manual screening 28 U/L 15-37 [facility] Thin prep Papanicolaou smear with manual screening 5 5-15 [facility] Urine creatinine measurement (mass/volume)Ordered By: Gilbert Vanegas on 03-03-2023 Creatinine (U) [Mass/Vol] 268.00 mg/dL NO RANGE EST. [facility] No Panel InformationOrdered By: Marcus Tavarez on 11-08-2022 Prostate Specific Antigen Total 5.96 ng/mL 0.0-4.0 [facility] Comment on above: This test was perfor med using the TPSA assay method for [employer] chemistry system. Values obtained with differentassay methods cannot be used interchangably.When changing PSA assays in the course of monitoring apatient, additional sequential testing should be carriedout to confirm baseline values. Laboratory - Microbiology an d Antimicrobial susceptibilityon 09-09-2022 S. pyogenes Ag IA Ql (Unsp spec) Negative [facility] SARS-CoV-2 (COVID-19) RNA WANDER+probe Ql (Unsp spec) Not detected [facility] No Panel Informationon 09-09 Influenza Types A,B Rapid (Clinic) Not detected [facility] CBC panel Auto (Bld)on 06-12 Erythrocyte distribution width (RBC) [Ratio] 13.1 % 11.5 - 15.0 % [facility] Hematocrit (Bld) [Volume fraction] 43.7 % 39.0 - 51.0 % [facility] Hemoglobin (Bld) [Mass/Vol] 14.5 g/dL 13.0 - 17.0 g/dL [facility] MCH (RBC) [Entitic mass] 30.6 pg 26.0 - 34.0 pg [facility] MCHC (RBC) [Mass/Vol] 33.2 g/dL 30.5 - 36.0 g/dL [facility] MCV (RBC) [Entitic vol] 92.2 fL 80.0 - 100.0 fL [facility] Nucleated RBC (Bld) [#/Vol] <0.01 k/uL [facility] Platelet mean volume (Bld) [Entitic vol] 9.8 fL 9.0 - 12.7 fL [facility] Platelets (Bld) [#/Vol] 188 10*3/uL 150 - 400 k/uL [facility] RBC (Bld) [#/Vol] 4.74 10*6/uL 4.20 - 6.0 0 m/uL [facility] WBC (Bld) [#/Vol] 6.09 10*3/uL 3.70 - 11. 00 k/uL [facility] Comprehensive metabolic 2000 panelon 06-12-2022 Albumin [Mass/Vol] 4.1 g/dL 3.9 - 4.9 g/dL [facility] ALP [Catalytic activity/Vol] 84 U/L 38 - 113 U/L [facility] ALT [Catalytic activity/Vol] 27 U/L 10 - 54 U/L [facility] Anion gap [Moles/Vol] 12 mmol/L 9 - 18 mmol/L [facility] AST [Catalytic activity/Vol] 29 U/L 14 - 40 U/L [facility] Bilirubin [Mass/Vol] 0.4 mg/dL 0.2 - 1 .3 mg/dL [facility] Calcium [Mass/Vol] 8.9 mg/dL 8.5 - 10. 2 mg/dL [facility] Chloride [Moles/Vol] 105 mmol/L 97 - 10 5 mmol/L [facility] CO2 [Moles/Vol] 23 mmol/L 22 - 30 mmol/L [facility] Creatinine [Mass/Vol] 1.05 mg/dL 0.73 - 1.22 mg/dL [facility] Estimated Glomerular Filtration Rate 83 mL/min/1.73m >=60 mL/min/1.73m [facility] Glucose [Mass/Vol] 103 mg/dL High 74 - 99 mg/dL [facility] Potassium [Moles/Vol] 4.1 mmol/L 3.7 - 5.1 mmol/L [facility] Protein [Mass/Vol] 6.6 g/dL 6.3 - 8.0 g/dL [facility] Sodium [Moles/Vol] 140 mmol/L 136 - 144 mmol/L [facility] Urea nitrogen [Mass/Vol] 12 mg/dL 9 - 24 mg/dL [facility] HbA1c (Bld)on 06-12-2022 Average glucose Estimated from glycated hemoglobin (Bld) [Mass/Vol] 105 mg/dL [facility] HbA1c (Bld) [Mass fraction] 5.3 % 4.3 - 5.6 % [facility] LIPID PANEL, NONFASTINGon Cholesterol [Mass/Vol] 236 mg/dL High <200 mg/dL [facility] HDL Cholesterol, Nonfasting 52 mg/dL >39 mg/dL [facility] LDL Cholesterol, Nonfasting 120 mg/dL High <100 mg/dL [facility] LDL/HDL Ratio, Nonfasting 2.31 mg/dL <2.54 mg/dL [facility] Non HDL Cholesterol, Nonfasting 184 mg/dL High <130 mg/dL [facility] Total Chol/HDL Ratio, Nonfasting 4.54 mg/dL <5.10 mg/dL [facility] Triglycerides, Nonfasting 319 mg/dL High <150 mg/dL [facility] VLDL Cholesterol, Nonfasting 64 mg/dL High <30 mg/dL [facility] PT panel Coag (PPP)on 2022 INR Coag (PPP) [Relative time] 2.8 {INR} High 0.9 - 1.3 [facility] PT Coag (PPP) [Time] 27.2 s High 9.7 - 1 3.0 sec [facility] No Panel InformationOrdered By: Dr. Tavarez on 05-10-2022 Prostate Specific Antigen Total 4.98 ng/mL 0.0-4.0 [facility] Comment on above: This test was perfor med using the TPSA assay method for the[employer] chemistry system. Values obtained with differentassay methods cannot be used interchangably.When changing PSA assays in the course of monitoring apatient, additional sequential testing should be carriedout to confirm baseline values. INR FINGERSTICK B/Oon 2021 INR Coag (Bld) [Relative time] 1.4 biotel [facility] Basophil percentageOrdered B y: Dr. Vanegas on 01-22-2022 Bilirubin [Mass/Vol] 0.70 mg/dL 0.20-1.00 [facility] Comment on above: For patients on eltr ombopag therapy, use of Dimension [place] TBIL is not recommended. Chloride [Moles/Vol] 109 mmol/L 98-107 [facility] Glucose [Mass/Vol] 102 mg/dL 74-106 [facility] Comment on above: Fasting Glucose resu lt from 100 to 125 mg/dL suggests IMPAIRED HOMEOSTASIS per A.D.A. criteria. Potassium [Moles/Vol] 4.1 mmol/L 3.5-5.1 [facility] Protein [Mass/Vol] 6.9 g/dL 6.4-8.2 [facility] Sodium [Moles/Vol] 140 mmol/L 136-145 [facility] Laboratory - Chemistry and C hemistry - challengeOrdered By: Dr. Vanegas on 01-22-2022 ALP [Catalytic activity/Vol] 72 U/L 45-117 [facility] ALT [Catalytic activity/Vol] 29 U/L 16-61 [facility] CO2 [Moles/Vol] 25.0 mmol/L 21.0-32.0 [facility] Globulin (S) [Mass/Vol] 3.3 g/dL 2.2-4.2 [facility] Magnesium [Mass/Vol] 2.4 mg/dL 1.6-2.6 [facility] Urea nitrogen/Creatinine [Mass ratio] 8.5 mg/mg 10-20 [facility] No Panel InformationOrdered By: Dr. Vanegas on 01-22-2022 Estimated GFR (MDRD) Amer 73 mL/min >60 [facility] Comment on above: GFR Calc Estimated GFR (MDRD) Non-Af Amer 61 mL/min >60 [facility] Comment on above: Non- GFR Calc Serum or plasma albumin lizz urement (mass/volume)Ordered By: Dr. Vanegas on 01-22-2022 Albumin [Mass/Vol] 3.6 g/dL 3.2-5.0 [facility] Serum or plasma albumin/glob ulin mass ratioOrdered By: Dr. Vanegas on 01-22-2022 Albumin/Globulin [Mass ratio] 1.1 {ratio} 0.9-2.4 [facility] Serum or plasma calcium lizz urement (mass/volume)Ordered By: Dr. Vanegas on 01-22-2022 Calcium [Mass/Vol] 8.8 mg/dL 8.5-10.1 [facility] Serum or plasma creatinine m easurement (mass/volume)Ordered By: Dr. Vanegas on 01-22-2022 Creatinine [Mass/Vol] 1.30 mg/dL 0.70-1.30 [facility] Comment on above: The validity of the calculated GFR & GFRAA in patients over 70 years has not been determined. Clinical correlation is essential. Serum or plasma urea nitroge n measurement (mass/volume)Ordered By: Dr. Vanegas on 01-22-2022 Urea nitrogen [Mass/Vol] 11 mg/dL 7-18 [facility] Thin prep Papanicolaou smear with manual screeningOrdered By: Dr. Vanegas on 01-22-2022 Thin prep Papanicolaou smear with manual screening 22 U/L 15-37 [facility] Thin prep Papanicolaou smear with manual screening 6 5-15 [facility] No Panel Informationon 11-01 Prostate Specific Antigen Total 4.15 ng/mL 0.0-4.0 [facility] Work Phone: Comment on above: This test was perfor med using the TPSA assay method for the[employer] chemistry system. Values obtained with differentassay methods cannot be used interchangably.When changing PSA assays in the course of monitoring apatient, additional sequential testing should be carriedout to confirm baseline values. INR FINGERSTICK B/Oon 2021 INR Coag (Bld) [Relative time] 2.7 {INR} [facility] INR FINGERSTICK B/Oon 2021 INR Coag (Bld) [Relative time] 3.6 biotel [facility] Quality Check No [facility] Absolute lymphocyte counton 07-26-2021 Lymphocytes Auto (Unsp spec) [#/Vol] 1.64 10*3/uL 0.83-4.51 [facility] Work Phone: Basophil percentageon 2021 Basophils/100 WBC (Bld) 0.9 % 0-1 [facility] Work Phone: Bilirubin [Mass/Vol] 0.60 mg/dL 0.20-1.00 [facility] Work Phone: Comment on above: For patients on eltr ombopag therapy, use of Dimension [place] TBIL is not recommended. Chloride [Moles/Vol] 107 mmol/L 98-107 [facility] Work Phone: Cholesterol [Mass/Vol] 194 mg/dL <200 [facility] Work Phone: Comment on above: <200 mg/dL Desirable 200-240 mg/dL Borderline >240 mg/dL High Risk Eosinophils/100 WBC (Bld) 5.4 % 0-5 [facility] Work Phone: Glucose [Mass/Vol] 111 mg/dL 74-106 [facility] Work Phone: Comment on above: Fasting Glucose resu lt from 100 to 125 mg/dL suggests IMPAIRED HOMEOSTASIS per A.D.A. criteria. Neutrophils (Bld) [#/Vol] 3.0 10*3/uL 2.0-7.7 [facility] Work Phone: [phone] Neutrophils/100 WBC (Bld) 54.3 % 47-70 [facility] Work Phone: Potassium [Moles/Vol] 4.3 mmol/L 3.5-5.1 [facility] Work Phone: Protein [Mass/Vol] 6.8 g/dL 6.4-8.2 [facility] Work Phone: [phone] Sodium [Moles/Vol] 137 mmol/L 136-145 [facility] Work Phone: Triglyceride [Mass/Vol] 209 mg/dL <199 [facility] Work Phone: Comment on above: The drugs N-Acetylcy steine and Metamizole may falsely depress this assay.Serum Triglycerides Reference Interval Normal <150 mg/dL Borderline high 150 - 199 mg/dL High 200 - 499 mg/dL Very High > or = 500 mg/dL WBC (Bld) [#/Vol] 5.5 10*3/uL 4.4-11.0 [facility] Work Phone: Blood erythrocytes count (nu mber/volume)on 07-26-2021 RBC (Bld) [#/Vol] 4.97 10*6/uL 4.6-6.2 [facility] Work Phone: Blood hemoglobin measurement (mass/volume)on 07-26-2021 Hemoglobin (Bld) [Mass/Vol] 14.8 g/dL 13.0-16.5 [facility] Work Phone: Blood lymphocytes/100 leukoc yteson 07-26-2021 Lymphocytes/100 WBC (Bld) 29.6 % 19-41 [facility] Work Phone: Blood monocytes/100 leukocyt eson 07-26-2021 Monocytes/100 WBC (Bld) 9.4 % 0-10 [facility] Work Phone: Blood platelet mean volumeon 07-26-2021 Platelet mean volume (Bld) [Entitic vol] 10.0 fL 6.2-12.0 [facility] Work Phone: Determination of erythrocyte mean corpuscular volume (MCV)on 07-26-2021 MCV (RBC) [Entitic vol] 92.0 fL 80-94 [facility] Work Phone: Hematocrit Auto (Bld) [Volum e fraction]on 07-26-2021 Hematocrit (Bld) [Volume fraction] 45.7 % 40-54 [facility] Work Phone: Laboratory - Chemistry and C hemistry - challengeon 07-26-2021 ALP [Catalytic activity/Vol] 77 U/L 45-117 [facility] Work Phone: ALT [Catalytic activity/Vol] 23 U/L 16-61 [facility] Work Phone: CO2 [Moles/Vol] 26.0 mmol/L 21.0-32.0 [facility] Work Phone: Globulin (S) [Mass/Vol] 3.3 g/dL 2.2-4.2 [facility] Work Phone: Urea nitrogen/Creatinine [Mass ratio] 11.0 mg/mg 10-20 [facility] Work Phone: Laboratory - Hematology and Cell countson 07-26-2021 Erythrocyte distribution width (RBC) [Entitic vol] 45.3 fL 35.1-43.9 [facility] Work Phone: Erythrocyte distribution width (RBC) [Ratio] 13.4 % 11.6-14.6 [facility] Work Phone: Immature granulocytes/100 WBC (Bld) 0.400 % 0.0-0.9 [facility] Work Phone: Comment on above: IG% - Immature Granu locytes (promyelocytes, myelocytes and metamyelocytes) > 1% indicates that a LEFT SHIFT is Present. MCH (RBC) [Entitic mass] 29.8 pg 27.0-32.0 [facility] Work Phone: Nucleated RBC/100 WBC (Bld) [Ratio] 0 % 0-5 [facility] Work Phone: MCHC Auto (RBC) [Mass/Vol]on 07-26-2021 MCHC (RBC) [Mass/Vol] 32.4 g/dL 32-36 [facility] Work Phone: No Panel Informationon 07-26 Estimated GFR (MDRD) Amer 82 mL/min >60 [facility] Work Phone: Comment on above: GFR Calc Estimated GFR (MDRD) Non-Af Amer 68 mL/min >60 [facility] Work Phone: Comment on above: Non- GFR Calc Hepatitis C Antibody Non-Reactive Nonreactive W [facility] Work Phone: Comment on above: Non Reactive: < 0.8 Equivocal: >/= 0.8 to < 1.0 Reactive: >/= 1.0The CDC recommends that a reactive/equivocal HCV antibody result be followed up by the HCV Nucleic Acid Amplificationtest (005993) Prostate Specific Antigen Total 7.24 ng/mL 0.0-4.0 [facility] Work Phone: Comment on above: This test was perfor med using the TPSA assay method for [employer] chemistry system. Values obtained with differentassay methods cannot be used interchangably.When changing PSA assays in the course of monitoring apatient, additional sequential testing should be carriedout to confirm baseline values. Platelets bldon 07-26-2021 Platelets (Bld) [#/Vol] 279 10*3/uL 150-450 [facility] Work Phone: Serum or plasma albumin lizz urement (mass/volume)on 07-26-2021 Albumin [Mass/Vol] 3.5 g/dL 3.2-5.0 [facility] Work Phone: Serum or plasma albumin/glob ulin mass ratioon 07-26-2021 Albumin/Globulin [Mass ratio] 1.1 {ratio} 0.9-2.4 [facility] Work Phone: Serum or plasma calcium lizz urement (mass/volume)on 07-26-2021 Calcium [Mass/Vol] 8.8 mg/dL 8.5-10.1 [facility] Work Phone: Serum or plasma cholesterol in HDL measurement (mass/volume)on 07-26-2021 Cholesterol in HDL [Mass/Vol] 48 mg/dL >40 [facility] Work Phone: Comment on above: The drugs N-Acetylcy steine and Metamizole may falsely depress this assay. Reference Range HDL <40 mg/dL Low HDL Cholesterol HDL >or= 60 mg/dL High HDL Cholesterol Serum or plasma cholesterol in VLDL measurement (mass/volume)on 07-26-2021 Cholesterol in VLDL [Mass/Vol] 42 mg/dL 5-40 [facility] Work Phone: Serum or plasma creatinine m easurement (mass/volume)on 07-26-2021 Creatinine [Mass/Vol] 1.18 mg/dL 0.70-1.30 [facility] Work Phone: Comment on above: The validity of the calculated GFR & GFRAA in patients over 70 years has not been determined. Clinical correlation is essential. Serum or plasma low density lipoprotein (LDL) cholesterol measurement (mass/volume)on 07-26-2021 Cholesterol in LDL [Mass/Vol] 104 mg/dL 0-130 [facility] Work Phone: Serum or plasma urea nitroge n measurement (mass/volume)on 07-26-2021 Urea nitrogen [Mass/Vol] 13 mg/dL 7-18 [facility] Work Phone: Thin prep Papanicolaou smear with manual screeningon 07-26-2021 Thin prep Papanicolaou smear with manual screening 21 U/L 15-37 [facility] Work Phone: Thin prep Papanicolaou smear with manual screening 4 5-15 [facility] Work Phone: INR FINGERSTICK B/Oon 2021 INR Coag (Bld) [Relative time] 3.3 {INR} [facility] Quality Check No [facility] INR FINGERSTICK B/Oon 2021 INR Coag (Bld) [Relative time] 4.8 (biotel) [facility] Quality Check No [facility] Vital Signs Date Time Vital Sign Value Performing Clinician Cara huggins 09-29-2024 08:45-0400 Body mass index (BMI) [Ratio] 30.86 kg/m2 NA To [employer]ULET[employer] OPERATOR Work Phone: [facility] 09-29-2024 08:45-0400 Body weight 94.8 kg NA To ZULETALIFT OPERATOR Work Phone: [facility] 09-29-2024 08:45-0400 Diastolic blood pressure 79 mm[Hg] NA To [employer]ULETALIFT OPERATOR Work Phone: [facility] 09-29-2024 08:45-0400 Heart rate 83 /min NA To ZULETALIFT OPERATOR Work Phone: [facility] 09-29-2024 08:45-0400 Respiratory rate 14 /min NA To ZULETALIFT OPERATOR Work Phone: [facility] 09-29-2024 08:45-0400 SaO2% (BldA) [Mass fraction] 97 % NA To ZULETALIFT OPERATOR Work Phone: [facility] 09-29-2024 08:45-0400 Systolic blood pressure 113 mm[Hg] NA To ZULETALIFT OPERATOR Work Phone: [facility] 06-17-2023 09:33-0500 Body height 175.3 cm Kaleb Eduardo MD Work Phone: [facility] 06-17-2023 09:33-0500 Body weight 99.34 kg Kaleb Eduardo MD Work Phone: [facility] 06-17-2023 09:33-0500 Diastolic blood pressure 85 mm[Hg] Kaleb Eduardo MD Work Phone: [facility] 06-17-2023 09:33-0500 Heart rate 84 /min Kaleb Eduardo MD Work Phone: [facility] 06-17-2023 09:33-0500 Respiratory rate 16 /min Kaleb Eduardo MD Work Phone: [facility] 06-17-2023 09:33-0500 SaO2% (BldA) [Mass fraction] 100 % Kaleb Eduardo MD Work Phone: [facility] 06-17-2023 09:33-0500 Systolic blood pressure 120 mm[Hg] Kaleb Eduardo MD Work Phone: [facility] 11-10-2022 14:02-0400 Body height 177.8 cm MD Gilbert SCOTT [facility] 11-10-2022 14:02-0400 Body mass index (BMI) [Ratio] 30.9 kg/m2 MD Gilbert SCOTT [facility] 11-10-2022 14:02-0400 Body temperature 97.8 [degF] MD Gilbert SCOTT [facility] 11-10-2022 14:02-0400 Body weight 97.79 kg MD Gilbert Vanegas [facility] 11-10-2022 14:02-0400 Diastolic blood pressure 95 mm[Hg] MD Gilbert Vanegas [facility] 11-10-2022 14:02-0400 Heart rate 97 /min MD Gilbert Vanegas [facility] 11-10-2022 14:02-0400 Respiratory rate 18 /min MD Gilbert Vanegas [facility] 11-10-2022 14:02-0400 SaO2% (BldA) [Mass fraction] 100 % MD Gilbert Vanegas [facility] 11-10-2022 14:02-0400 Systolic blood pressure 136 mm[Hg] MD Gilbert Vanegas [facility] 09-09-2022 09:31-0400 Body temperature 98.6 [degF] MD Gilbert Vanegas [facility] 09-09-2022 09:31-0400 Body weight 98.42 kg MD Gilbert Vanegas [facility] 09-09-2022 09:31-0400 Diastolic blood pressure 70 mm[Hg] MD Gilbert Vanegas [facility] 09-09-2022 09:31-0400 Heart rate 93 /min MD Gilbert Vanegas [facility] 09-09-2022 09:31-0400 Respiratory rate 14 /min MD Gilbert Vanegas [facility] 09-09-2022 09:31-0400 SaO2% (BldA) [Mass fraction] 98 % MD Gilbert Vanegas [facility] 09-09-2022 09:31-0400 Systolic blood pressure 110 mm[Hg] MD Gilbert Vanegas [facility] 06-12-2022 14:21-0500 Body height 175.3 cm Juan Willis MD Work Phone: [facility] 06-12-2022 14:21-0500 Body weight 105.23 kg Juan Willis MD Work Phone: [facility] 06-12-2022 14:21-0500 Diastolic blood pressure 89 mm[Hg] Juan Willis MD Work Phone: [facility] 06-12-2022 14:21-0500 Heart rate 94 /min Juan Willis MD Work Phone: [facility] 06-12-2022 14:21-0500 Systolic blood pressure 148 mm[Hg] Juan Willis MD Work Phone: [facility] 07-10-2021 12:09-0400 Body height 177.8 cm MD Gilbert Vanegas [facility] Work Phone: 07-10-2021 12:09-0400 Body mass index (BMI) [Ratio] 32.1 kg/m2 MD Gilbert Vanegas [facility] Work Phone: 07-10-2021 12:09-0400 Body temperature 97.2 [degF] MD Gilbert Vanegas [facility] Work Phone: 07-10-2021 12:09-0400 Body weight 101.6 kg MD Gilbert Vanegas [facility] Work Phone: 07-10-2021 12:09-0400 Diastolic blood pressure 68 mm[Hg] MD Gilbert Vanegas [facility] Work Phone: 07-10-2021 12:09-0400 Heart rate 84 /min MD Gilbert Vanegas [facility] Work Phone: 07-10-2021 12:09-0400 Respiratory rate 15 /min MD Gilbert Vanegas [facility] Work Phone: 07-10-2021 12:09-0400 SaO2% (BldA) [Mass fraction] 94 % MD Gilbert Vanegas [facility] Work Phone: 07-10-2021 12:09-0400 Systolic blood pressure 100 mm[Hg] MD [facility]gel [facility] Work Phone: Encounters Encounter Date Encounter Type Care Provider Facility Start: 01-22-2025 End: 01-23-2025 ambulatory GILBERT VANEGAS Facility:[facility] Start: 01-10-2025 End: 01-10-2025 ambulatory GILBERTPHILIP VANEGAS Facility:[facility] Start: 12-21-2024 End: 12-21-2024 Telephone encounter Lucita Alba [facility] Comment on above: Anticoagulation Tele phone Fu (Home INR result) Start: 12-02-2024 End: 12-02-2024 Telephone encounter Lydia Hanley [facility] Comment on above: Anticoagulation Tele phone Fu (Home INR) Start: 11-19-2024 End: 11-19-2024 Telephone encounter Lucita Alba [facility] Comment on above: Anticoagulation Tele phone Fu (Home INR result) Start: 11-17-2024 End: 11-17-2024 ambulatory [facility] Facility:[facility] Start: 11-11-2024 End: 11-11-[address] Gilbert Vanegas MD Work Phone: -Laboratory Start: 11-11-2024 End: 11-11-[address] Marcus Tavarez MD -Laboratory Work Phone: Start: 11-11-2024 End: 11-11-2024 ambulatory Gilbert Vanegas Facility:[facility] Start: 11-10-2024 End: 11-11-2024 Telephone encounter Monalisa Melendez [facility] Comment on above: Anticoagulation Tele phone Fu (Home INR result ) Refill Request Start: 11-05-2024 End: 11-05-2024 ambulatory [facility] Facility:[facility] Start: 11-03-2024 End: 11-03-2024 Telephone encounter Monalisa Melendez [facility] Comment on above: Anticoagulation Tele phone Fu (Home INR ) Start: 10-21-2024 End: 10-21-2024 Telephone encounter Lydia Hanley [facility] Comment on above: Anticoagulation Tele phone Fu (Home INR) Start: 10-13-2024 End: 10-13-2024 Telephone encounter Monalisa Melendez [facility] Comment on above: Anticoagulation Tele phone Fu (Home INR result ) Start: 10-06-2024 End: 10-19-2024 Follow-up encounter Mary Luna APRN.LIFT OPERATOR Work Phone: Cardiology Start: 10-04-2024 End: 10-04-2024 Telephone encounter Melany Wright [facility] Comment on above: Anticoagulation Tele phone Fu (Home INR Result ) Start: 09-29-2024 End: 10-03-2024 Refill Kaleb Eduardo MD Work Phone: Cardiology Comment on above: Refill Request Start: 09-29-2024 End: 09-29-2024 Patient encounter procedure Mary Luna MINES INSPECTOR.LIFT OPERATOR Work Phone: Cardiology Comment on above: H/O mechanical aorti c valve replacement (Primary Dx); History of bicuspid aortic valve Start: 09-29-2024 End: 09-29-2024 ambulatory KALEB EDUARDO Facility:[facility] Start: 09-17-2024 End: 09-17-2024 Orders Only Kaleb Eduardo MD Work Phone: Cardiology Comment on above: Tachycardia (Primary Dx) Start: 08-23-2024 End: 08-23-2024 Telephone encounter Melany Wright [facility] Comment on above: Anticoagulation Tele phone Fu (Home INR Result ) Start: 2024 End: 08-17-2024 Refill Kaleb Eduardo MD Work Phone: Cardiology Comment on above: Refill Request ([facility] Managed Refill) Start: 07-29-2024 End: 07-29-2024 Telephone encounter Lydia Hanley [facility] Comment on above: Anticoagulation Tele phone Fu (Home INR) Start: 07-09-2024 End: 07-09-2024 Telephone encounter Lucita Alba [facility] Comment on above: Anticoagulation Tele phone Fu (Home INR result) Start: 07-03-2024 End: 07-05-2024 Refill Kaleb Eduardo MD Work Phone: Cardiology Comment on above: Refill Request Start: 06-18-2024 End: 06-18-2024 Telephone encounter Lucita Alba [facility] Comment on above: Anticoagulation Tele phone Fu (Home INR result) Start: 06-16-2024 End: 06-25-2024 Refill Kaleb Eduardo MD Work Phone: Cardiology Comment on above: Refill Request Start: 05-31-2024 End: 05-31-2024 Telephone encounter Melany Wright [facility] Comment on above: Anticoagulation Tele phone Fu (Home INR Result ) Start: 05-14-2024 End: 05-14-2024 ambulatory Lyndsey Tarzan Facility:[facility] Start: 05-10-2024 End: 05-10-2024 Telephone encounter Melany Wright [facility] Comment on above: Anticoagulation Tele phone Fu (Home INR Result ) Start: 04-29-2024 End: 05-06-2024 Refill Kaleb Eduardo MD Work Phone: Cardiology Comment on above: Refill Request Start: 04-19-2024 End: 04-19-2024 Telephone encounter Melany Wright [facility] Comment on above: Anticoagulation Tele phone Fu (Home INR Result ) Start: 04-02-2024 End: 04-02-2024 Telephone encounter Nikolai Cerna [facility] Comment on above: Anticoagulation Tele phone Fu (INR Home Test Result) Start: 03-11-2024 End: 03-11-2024 Telephone encounter Lydia Hanley [facility] Comment on above: Anticoagulation Tele phone Fu (Home INR) Start: 02-20-2024 End: 02-20-2024 Telephone encounter Nikolai Cerna [facility] Comment on above: Anticoagulation Tele phone Fu (INR Home Test Result) Start: 02-06-2024 End: 02-06-2024 Telephone encounter Radha Boyle [facility] Comment on above: Anticoagulation Foll ow Up Start: 02-05-2024 End: 02-09-2024 Refill Kaleb Eduardo MD Work Phone: Cardiology Comment on above: Refill Request Start: 01-22-2024 End: 01-22-2024 Telephone encounter Lydia Hanley [facility] Comment on above: Anticoagulation Tele phone Fu (Home INR) Start: 01-05-2024 End: 01-05-2024 Telephone encounter Melany Wright [facility] Comment on above: Anticoagulation Tele phone Fu (Home INR Result ) Start: 12-18-2023 End: 12-18-2023 Telephone encounter Lydia Hanley [facility] Comment on above: Anticoagulation Tele phone Fu (Home INR) Start: 12-05-2023 Telephone encounter Lucita Alba [facility] Comment on above: Anticoagulation Tele phone Fu Start: 11-19-2023 Refill Kaleb tee MD Work Phone: Cardiology Comment on above: Refill Request Start: 11-14-2023 Telephone encounter Lucita Alba RP [facility] Comment on above: Anticoagulation Tele phone Fu (Home INR result) Start: 10-27-2023 Telephone encounter Monalisa Melendez R [facility] Comment on above: Anticoagulation Tele phone Fu (Home INR results ) Start: 10-08-2023 Telephone encounter Monalisa Al R [facility] Comment on above: Anticoagulation Tele phone Fu (Home INR) Start: 09-22-2023 Telephone encounter Melany Coresaks [facility] Comment on above: Anticoagulation Tele phone Fu (Home INR Result ) Start: 09-05-2023 Refill Kaleb tee MD Work Phone: Cardiology Comment on above: Refill Request Start: 08-30-2023 Orders Only Kaleb tee MD Work Phone: Cardiology Comment on above: Tachycardia (Primary Dx) Start: 08-28-2023 Telephone encounter Lydia garcia [facility] Comment on above: Anticoagulation Tele phone Fu ( Home INR) Start: 08-08-2023 Telephone encounter Nikolai Cerna [facility] Comment on above: Anticoagulation Tele phone Fu (INR Home Test Result) Start: 08-01-2023 End: 08-01-2023 ambulatory Kaleb Eduardo MD Work Phone: Cardiology Comment on above: Tachycardia (Primary Dx); Valvular heart disease Start: 08-01-2023 End: 08-01-2023 Telemedicine consultation with patient Kaleb Eduardo MD Work Phone: [facility] Start: 06-23-2023 Telephone encounter Melany [facility] Comment on above: Anticoagulation Tele phone Fu (Home INR Result ) Start: 06-18-2023 Telephone encounter Kaleb segovia MD Work Phone: Cardiology Start: 06-17-2023 End: 06-17-2023 Patient encounter procedure Kaleb Eduardo MD Work Phone: Cardiology Comment on above: Class 1 obesity due to excess calories with body mass index (BMI) of 34.0 to 34.9 in adult, unspecified whether serious comorbidity present (Primary Dx); H/O mechanical aortic valve replacement; Hyperlipidemia, unspecified hyperlipidemia type Start: 06-02-2023 Telephone encounter Melany [facility] Comment on above: Anticoagulation Tele phone Fu (Home INR Result ) Start: 03-17-2023 Telephone encounter Melany [facility] Comment on above: Anticoagulation Tele phone Fu (Home INR Result ) Start: 03-03-2023 End: 03-03-2023 ambulatory [facility] Work Phone: Start: 03-03-2023 End: 03-03-2023 [facility] Start: 02-25-2023 Telephone encounter Lucita Hoffman [facility] Start: 02-03-2023 Telephone encounter Melany [facility] Comment on above: Anticoagulation Tele phone Fu (Home INR Result ) Refill Request Start: 01-01-2023 Telephone encounter Monalisa Mun[facility] Comment on above: Anticoagulation Tele phone Fu (Home INR result ) Start: 12-10-2022 Telephone encounter Lucita Hoffman [facility] Comment on above: Anticoagulation Tele phone Fu (Home INR result) Start: 11-21-2022 Telephone encounter Lydia garcia [facility] Comment on above: Anticoagulation Tele phone Fu (Home INR) Start: 11-10-2022 End: 11-10-2022 Emergency department patient visit MD Gilbert Vanegas [facility] Work Phone: Start: 11-08-2022 End: 11-08-2022 Patient encounter procedure MD Gilbert SCOTT [facility] Work Phone: Start: 10-25-2022 Telephone encounter Nikolai Cross [facility] Comment on above: Anticoagulation Tele phone Fu (INR Home Test Result) Start: 10-24-2022 Telephone encounter Juan domingo MD Work Phone: Cardiology Comment on above: Refill Request; Refi ll Request Start: 10-18-2022 Telephone encounter [facility]onalisa [facility] Comment on above: Anticoagulation Tele phone Fu (Home INR result) Start: 09-09-2022 End: 09-09-2022 Patient encounter procedure MD Gilbert SCOTT [facility] Work Phone: Start: 08-26-2022 Telephone encounter Melany Wright [facility] Comment on above: Anticoagulation Tele phone Fu (Home INR Result ) Start: 08-22-2022 Refill Juanjazmin Willis MD Work Phone: Cardiology Comment on above: Refill Request (Sema glutide) Start: 08-21-2022 ambulatory Juanjazmin Willis MD Work Phone: Cardiology Comment on above: Wegovy Start: 2022 Telephone encounter Nikolai Cross [facility] Comment on above: Anticoagulation Tele phone Fu Start: 07-19-2022 Telephone encounter Nikolai Cross [facility] Comment on above: Anticoagulation Tele phone Fu (INR Home Test Result) Start: 07-17-2022 Refill Juanjazmin Willis MD Work Phone: Cardiology Comment on above: Refill Request Start: 06-27-2022 Telephone encounter Lydia garcia [facility] Comment on above: Anticoagulation Tele phone Fu (Home INR) Start: 06-25-2022 Telephone encounter Juan domingo MD Work Phone: Cardiology Comment on above: Insurance Authorizat ion - Denial of Coverage of Ozempic Start: 06-13-2022 ambulatory Juan Willis MD Work Phone: Cardiology Comment on above: Test results Start: 06-13-2022 E-mail encounter mayuri myles caregiver Juan Willis MD Work Phone: [facility] Start: 06-13-2022 Telephone encounter Tara chino RN Work Phone: [facility] Comment on above: Insurance Authorizat ion (Ozempic (0.25 or 0.5 MG/DOSE) 2MG/1.5ML pen-injectors/) Start: 06-12-2022 End: 06-12-2022 Patient encounter procedure Juan Willis MD Work Phone: Cardiology Comment on above: H/O mechanical aorti c valve replacement (Primary Dx); Class 1 obesity due to excess calories with body mass index (BMI) of 34.0 to 34.9 in adult, unspecified whether serious comorbidity present; S/P AVR (aortic valve replacement); Essential hypertension; Hyperlipidemia, unspecified hyperlipidemia type; Bicuspid aortic valve Start: 06-11-2022 Telephone encounter Lucita Alba [facility] Comment on above: Anticoagulation Tele phone Fu (Home INR) Start: 05-28-2022 Telephone encounter Lucita Alba [facility] Comment on above: Anticoagulation Tele phone Fu (Home INR ) Start: 05-17-2022 Telephone encounter Nikolai Cerna [facility] Comment on above: Anticoagulation Tele phone Fu (INR Home Test Result) Start: 05-13-2022 Orders Only Juan Willis MD Work Phone: Cardiology Comment on above: H/O mechanical aorti c valve replacement (Primary Dx) Anticoagulation (INR Result Expected ) Start: 05-10-2022 End: 05-10-2022 ambulatory [facility] Work Phone: Start: 05-10-2022 End: 05-10-2022 Patient encounter procedure [facility] Start: 05-02-2022 Telephone encounter Pharmacist [facility] Comment on above: Patient Question Start: 04-26-2022 Telephone encounter Lydia garcia [facility] Comment on above: Anticoagulation Start: 04-11-2022 Telephone encounter Monalisaamol [facility] Comment on above: Anticoagulation Tele phone Fu (Home INR result) Start: 03-15-2022 Telephone encounter Rae Ji amaro [facility] Comment on above: Anticoagulation Tele phone Fu Start: 03-01-2022 Telephone encounter Nikolai Cross h [facility] Comment on above: Anticoagulation Tele phone Fu (INR Result) Start: 02-22-2022 Telephone encounter Nikolai Cross [facility] Comment on above: Anticoagulation Tele phone Fu Start: 02-08-2022 Telephone encounter Nikolai Cross [facility] Comment on above: Anticoagulation Tele phone Fu (INR Home Test Result) Start: 02-06-2022 Telephone encounter Lesia Billie Pending [facility] Comment on above: Anticoagulation Tele phone Fu Start: 01-23-2022 Telephone encounter Pharmacist [facility] Comment on above: Anticoagulation Start: 01-22-2022 End: 01-22-2022 ambulatory [facility] Work Phone: Start: 01-22-2022 End: 01-22-2022 Patient encounter [facility] Start: 01-17-2022 ambulatory Juan Willis MD Work Phone: Cardiology Comment on above: EKG - PDFs Start: 01-16-2022 ambulatory Juan Willis MD Work Phone: Cardiology Comment on above: PVC Start: 01-08-2022 Telephone encounter Lucita Alba [facility] Comment on above: Anticoagulation Tele phone Fu (Home INR) Start: 12-25-2021 Telephone encounter Lucita lAba [facility] Comment on above: Anticoagulation Tele phone Fu (Home INR) Start: 12-17-2021 Telephone encounter Juan domingo MD Work Phone: Cardiology Comment on above: Received External Me dical Records Start: 12-10-2021 Telephone encounter Pharmacist [facility] Comment on above: Anticoagulation Start: 11-23-2021 Telephone encounter Rae Ji amaro [facility] Comment on above: Anticoagulation Tele phone Fu (home INR ) Start: 11-09-2021 Telephone encounter Nikolai Cross [facility] Comment on above: Anticoagulation Tele phone Fu (INR Home Test Result) Start: 11-02-2021 Refill Juanjazmin Willis MD Work Phone: Pharmacy [facility] Comment on above: Refill Request Start: 11-01-2021 End: 11-01-2021 Patient encounter procedure MD Gilbert Vanegas [facility] Start: 10-26-2021 Telephone encounter Pharmacist [facility] Comment on above: Anticoagulation Start: 10-12-2021 Telephone encounter Nikolai Cross [facility] Comment on above: Anticoagulation Tele phone Fu (INR Home Test Result) Start: 10-05-2021 Telephone encounter Nikolai Cross [facility] Comment on above: Anticoagulation Tele phone Fu Start: 09-28-2021 Telephone encounter Nikolai Cross [facility] Comment on above: Anticoagulation Tele phone Fu (INR Home Test Result) Start: 09-21-2021 Telephone encounter Nikolai Cross [facility] Comment on above: Anticoagulation Tele phone Fu (INR Home Test Result) Start: 09-14-2021 Telephone encounter Nikolai Cross [facility] Comment on above: Anticoagulation Tele phone Fu (INR Home Test Result) Start: 09-13-2021 Telephone encounter Maureen Tracy RP Pharm[facility] Comment on above: Anticoagulation Tele phone Fu Start: 08-29-2021 Telephone encounter Monalisa Munoz [facility] Comment on above: Anticoagulation Tele phone Fu (Home INR result expected) Start: 08-14-2021 Telephone encounter Lucita Alba [facility] Comment on above: Anticoagulation Tele phone Fu (Home INR result) Start: 08-07-2021 Telephone encounter Rosalva Milner [facility] Comment on above: Anticoagulation Tele phone Fu (home INR) Start: 07-30-2021 Telephone encounter Kain Christy [facility] Tele[facility] Comment on above: Anticoagulation Tele phone Fu (Home INR Result) Start: 07-27-2021 Telephone encounter Nikolai Cerna [facility] Comment on above: Anticoagulation Tele phone Fu (INR Home Test Result) Start: 07-26-2021 End: 07-26-2021 Patient encounter procedure MD Gilbert Vanegas [facility], Ruby Mullins Start: 07-23-2021 Telephone encounter Melany Munoz [facility] Comment on above: Anticoagulation (INR result expected) Start: 07-16-2021 Telephone encounter Melany Munoz [facility] Comment on above: Anticoagulation (Gumaro e INR result) Start: 07-11-2021 Telephone encounter Pharmacist [facility] Comment on above: Patient Update (Home INR result) Start: 07-10-2021 End: 07-10-2021 Patient encounter procedure MD Gilbert Vanegas [facility] Start: 09-08-2020 Patient encounter status Gilbert Vanegas MD Work Phone: [facility] Procedures Date Procedure Procedure Detail Performing Clinician Start: 11-11-2024 Plain x-ray of pelvi s and lower extremity Dr. Gilbert Vanegas MD Work Phone: Start: 11-11-2024 Assay of prostate specific antigen total Dr. Gilbert Vanegas MD Work Phone: Comment on above: This test was perfor med using the [employer] tPSA method. Measured values of a patient sample can vary depending on the testing procedure used. PSA values determined on patient samples by different testing procedures cannot be used interchangeably. If there is a change in PSA assays while monitoring therapy, sequential testing should be performed to confirm baseline values. Start: 09-29-2024 Lipid 1995 panel - S williams or Plasma MARCIE Luna APRN.LIFT OPERATOR Work Phone: Start: 07-30-2023 Lipid 1995 panel - S williams or Plasma Kaleb Eduardo MD Work Phone: Start: 11-10-2022 X-ray of both feet MD Luz SCOTT Start: 06-12-2022 Lipid 1995 panel - S williams or Plasma Monalisa [facility]endez [facility] Start: 03-14-2022 Prothrombin time [facility] Start: 10-12-2021 Prothrombin time [facility] Start: 07-30-2021 Prothrombin time [facility] Start: 07-16-2021 Prothrombin time [facility] Start: 07-10-2021 Prothrombin time [facility] H/O: vasectomy History of vasectomy MD Alonso Vanegas History of cholecystectomy History of cholecystectomy MD Gilbert Vanegas History of decompres javan of median nerve History of carpal tunnel release MD Gilbert Vanegas Plan of Treatment Date Care Activity Detail Author Start: 09-29-2029 Lipid panel Lipid Screening [facility] Start: 07-29-2028 Lipid panel Lipid Screening [facility] Start: 11-06-2027 Diabetes Screening Diabetes Screenin [facility] Start: 06-12-2027 Lipid 1996 panel - S williams or Plasma Lipid Screening [facility] Start: 06-12-2027 Lipid panel Lipid Screening [facility] Start: 06-12-2027 LIPID SCREEN LIPID SCREEN [facility] Start: 05-17-2026 Urine microalbumin profile DTa P,Tdap,Td Vaccine (2 - Td or Tdap) [facility] Start: 10-24-2025 LIPID SCREEN LIPID SCREEN [facility] Start: 08-07-2025 Screening for malign ant neoplasm of colon [facility] Start: 06-12-2025 DIABETES SCREEN DIABETES SCREEN [facility] Start: 06-12-2025 Diabetes Screening Diabetes Screenor g [facility] Start: 01-19-2025 End: 04-20-2025 Lipid 1996 panel - Serum or Plasma LIPID PANEL, FASTING Lab Routine Hyperlipidemia, unspecified hyperlipidemia type Expected: 01/19/2025 (Approximate), Expires: 04/20/2025 [facility] Comment on above: Expected: 01/19/2025 (Approximate), Expires: 04/20/2025 Start: 12-20-2024 Influenza vaccination C [facility] Start: 11-17-2024 End: 11-17-2024 Patient encounter procedure 11/17/2024 2:40 PM EDT Office Visit Cardiology [address] [address] Dx: H/O mechanical aortic valve replacement [Z95.2] Cardiology Comment on above: Dx: H/O mechanical a ortic valve replacement [Z95.2] Start: 10-26-2024 End: 01-25-2025 Comprehensive metabolic 2000 panel - Serum or Plasma COMPREHENSIVE METABOLIC PANEL Lab Routine Hyperlipidemia, unspecified hyperlipidemia type Expected: 10/26/2024 (Approximate), Expires: 01/25/2025 [facility] Work Phone: Comment on above: Expected: 10/26/2024 (Approximate), Expires: 01/25/2025 Start: 09-29-2024 End: 09-29-2024 Patient encounter procedure 09/29/2024 9:00 AM EDT Office Visit Cardiology [address] [place] [address] Mary Luna, MINES INSPECTOR.LIFT OPERATOR [address] [place] [address] H/O mechanical aortic valve replacement [Z95.2] Cardiology Comment on above: H/O mechanical aorti c valve replacement [Z95.2] Start: 09-29-2024 End: 09-29-2024 [place] [facility] Comment on above: LABS, EKG Start: 09-17-2024 End: 12-17-2024 Lipid 1996 panel - Serum or Plasma LIPID PANEL, FASTING Lab Routine Tachycardia Expected: 09/17/2024, Expires: 12/17/2024 [facility] Work Phone: Comment on above: Expected: 09/17/2024 , Expires: 12/17/2024 Start: 12-21-2023 Covid-19 Vaccine ( season) Covid-19 Vaccine ( season) [facility] Start: 12-21-2023 Covid-19 Vaccine ( season) Covid-19 Vaccine ( season) [facility] Start: 12-21-2023 Influenza vaccination C [facility] Start: 10-25-2023 DIABETES SCREEN DIABETES SCREEN [facility] Start: 10-10-2023 End: 10-10-2023 Patient encounter procedure 10/10/2023 1:00 PM EDT Office Visit Urology [address] [address] Hamzah Muñoz MD [address] [place] [address] consult for BPH, elevated PSA per web request Urology Comment on above: consult for BPH, willie vated PSA per web request Start: 08-01-2023 End: 10-31-2023 Thyrotropin [Units/volume] in Serum or Plasma THYROID STIMULATING HORMONE Lab Routine Tachycardia Expected: 08/01/2023, Expires: 10/31/2023 [facility] Work Phone: Comment on above: Expected: 08/01/2023 , Expires: 10/31/2023 Start: 06-17-2023 End: 06-17-2024 Echocardiography ECHO Cardiology Routine H/O mechanical aortic valve replacement Expected: 06/17/2023, Expires: 06/17/2024 [facility] Work Phone: Comment on above: Expected: 06/17/2023 , Expires: 06/17/2024 Start: 06-17-2023 End: 09-16-2023 Lipid 1996 panel - Serum or Plasma LIPID PANEL BASIC Lab Routine Hyperlipidemia, unspecified hyperlipidemia type Expected: 06/17/2023, Expires: 09/16/2023 [facility] Work Phone: Comment on above: Expected: 06/17/2023 , Expires: 09/16/2023 Start: 06-17-2023 End: 09-16-2023 Lipoprotein a [Mass/volume] in Serum or Plasma LIPOPROTEIN (A) Lab Routine Hyperlipidemia, unspecified hyperlipidemia type Expected: 06/17/2023, Expires: 09/16/2023 [facility] Work Phone: Comment on above: Expected: 06/17/2023 , Expires: 09/16/2023 Start: 04-21-2023 Behavioral Health Screening Behavioral Health Screening [facility] Start: 04-21-2023 Depression Assessment Depression Ass essment [facility] Start: 12-20-2022 Covid-19 Vaccine () Covid-19 Vaccine () [facility] Start: 12-20-2022 Influenza vaccination C [facility] Start: 04-21-2022 DEPRESSION ASSESSMENT DEPRESSION ASS ESSMENT [facility] Start: 03-19-2022 COVID-19 VACCINE (5 - Booster for Moderna series) COVID-19 VACCINE (5 - Booster for Moderna series) [facility] Start: 03-19-2022 COVID-19 VACCINE (5 - Moderna series) COVID-19 VACCINE (5 - Moderna series) [facility] Start: 12-20-2021 Influenza vaccination INFLUENZA (#1) [facility] Start: 09-18-2021 COVID-19 VACCINE (4 - Booster for Moderna series) COVID-19 VACCINE (4 - Booster for Moderna series) [facility] Start: 07-16-2021 COVID-19 VACCINE (4 - Booster for Moderna series) COVID-19 VACCINE (4 - Booster for Moderna series) [facility] Start: 04-21-2021 DEPRESSION ASSESSMENT DEPRESSION ASS ESSMENT [facility] Start: 2020 PROSTATE CANCER SCRE ENING DISCUSSION PROSTATE CANCER SCREENING DISCUSSION [facility] Start: 2020 Prostate specific an tigen measurement Prostate Cancer Screening Discussion [facility] Start: 08-17-2015 Pneumococcal Vaccine : 50+ (1 of 1 - PCV) Pneumococcal Vaccine: 50+ (1 of 1 - PCV) [facility] Start: 08-17-2015 SHINGRIX VACCINE (1 of 2) CRUZ GRIX VACCINE (1 of 2) [facility] Start: 2010 COLOGUARD (FIT-DNA) COLOGUARD (FIT-D NA) [facility] Start: 2010 Colonoscopy COLONOSCOPY [facility] Start: 2010 COLORECTAL CANCER SCREENING COLORECTAL CANCER SCREENING [facility] Start: [address] COLONOGRAPHY [facility] Start: 2010 FECAL OCCULT BLOOD FECAL OCCULT BLOO D [facility] Start: 2010 Prostate specific an tigen measurement Prostate Cancer Screening Discussion [facility] Start: 2010 Screening for malign ant neoplasm of colon [facility] Start: 2010 SIGMOIDOSCOPY SIGMOIDOSCOPY [facility] Start: 1984 Hepatitis B Vaccine (1 of 3 - 19+ 3-dose series) Hepatitis B Vaccine (1 of 3 - 19+ 3-dose series) [facility] Start: 1984 Urine microalbumin profile [facility] Start: 08-17-1983 ANNUAL PCP TEAM RUG WASHER IRAJ DISEASE VISIT ANNUAL PCP TEAM CHRONIC DISEASE VISIT [facility] Start: 08-17-1983 Anxiety Screening Anxiety Screening [facility] Start: 08-17-1983 BP CONTROLLED (<130/80) BP CONTROLLE D (<130/80) [facility] Start: 08-17-1983 Depression Screening Depression Scre ening [facility] Start: 08-17-1983 HEPATITIS C SCREENING HEPATITIS C [facility] Start: 08-17-1983 Hepatitis C screening Hepatitis C [facility] Start: 08-17-1983 HIV SCREENING HIV SCREENING [facility] Start: 08-17-1983 HIV screening HIV Screening [facility] Start: 1977 Adult depression scr eening assessment DEPRESSION SCREENING [facility] Start: 1965 HEPATITIS B (1 of 3 - 3-dose series) HEPATITIS B (1 of 3 - 3-dose series) [facility] Start: 1965 Hepatitis B Vaccine (1 of 3 - 3-dose series) Hepatitis B Vaccine (1 of 3 - 3-dose series) [facility] End: 05-13-2023 ECG COMPLETE ECG COMPLETE ECG Routine H/O mechanical aortic valve replacement 1 Occurrences starting 05/13/2022 until 05/13/2023 [facility] Work Phone: Comment on above: 1 Occurrences starti ng 05/13/2022 until 05/13/2023 End: 09-17-2025 ECG COMPLETE ECG COMPLETE ECG Routine Tachycardia 1 Occurrences starting 09/17/2024 until 09/17/2025 [facility] Comment on above: 1 Occurrences starti ng 09/17/2024 until 09/17/2025 End: 09-29-2025 ECG COMPLETE ECG COMPLETE ECG Routine H/O mechanical aortic valve replacement History of bicuspid aortic valve 1 Occurrences starting 09/29/2024 until 09/29/2025 [facility] Comment on above: 1 Occurrences starti ng 09/29/2024 until 09/29/2025 End: 09-29-2025 Echocardiography ECHO Cardiology Routine H/O mechanical aortic valve replacement History of bicuspid aortic valve 1 Occurrences starting 09/29/2024 until 09/29/2025 [facility] Work Phone: Comment on above: 1 Occurrences starti ng 09/29/2024 until 09/29/2025 OUTSIDE VENDOR CARDI AC OUTPATIENT EXTENDED RHYTHM RECORDING (WITHOUT TELEMETRY) OUTSIDE VENDOR CARDIAC OUTPATIENT EXTENDED RHYTHM RECORDING (WITHOUT TELEMETRY) Holter Routine PVC's (premature ventricular contractions) Ordered: 01/17/2022 [facility] Work Phone: Comment on above: Ordered: 01/17/2022 OUTSIDE VENDOR CARDI AC OUTPATIENT EXTENDED RHYTHM RECORDING (WITHOUT TELEMETRY) OUTSIDE VENDOR CARDIAC OUTPATIENT EXTENDED RHYTHM RECORDING (WITHOUT TELEMETRY) Holter Routine Tachycardia Ordered: 08/30/2023 [facility] Work Phone: Comment on above: Ordered: 08/30/2023 Patient Education ED Foot Contusion [facility] Work Phone: Patient referral [facility] Work Phone: [facility] Immunizations Immunization Date Immunization Notes Care Provider Fa cility 01-22-2022 influenza virus vaccine, unspecified formulation Monalisaamol Melendez [facility] 10-12-2020 COVID-19 vaccine, fu ll dose (MODERNA) Gilbert Vanegas MD Work Phone: [facility] 02-08-2020 Influenza virus vaccine MD Gilbert Acosta [facility] 05-17-2016 tetanus toxoid, redu troy diphtheria toxoid, and acellular pertussis vaccine, adsorbed MD Gilbert Vanegas [facility] Payers Date Payer Category Payer Self-pay [id number] 2006 [employer] Blue [employer] BLUE ACCE PPO [id number] 2006 Unknown VENECIA PARSON PPO [id number] 2006-Present [phone] [address] [place] [address] PPO [id number] 2006 Unknown VENECIA RANDOLPHE SS PPO [id number] 2006-Present [phone] [address] [place] [address] O [id number] 2006 Unknown [id number] Unknown [id number] Unknown [id number] Social History Date Type Detail Facility Start: 12-31-2010 End: 06-12-2022 Tobacco smoking status AZIS Ex-smoker [facility] End: 12-31-2000 History of tobacco use Current smoker [facility] End: 12-31-2000 History of tobacco use Cigarette Smoker [facility] Start: 12-31-2010 End: 06-12-2022 Tobacco use and exposure Former smokeless tobacco user [facility] End: 09-11-2020 History of tobacco use Chews Tobacco [facility] Start: 05-29-2021 Alcohol intake Current drinke r of alcohol (finding) [facility] Start: 05-29-2021 End: 06-17-2023 Alcohol intake [facility] Start: 09-08-2020 History SDOH Alcohol Comment a couple of beers a day [facility] Start: 1965 Sex Assigned At Male C [facility] Start: 07-10-2021 End: 11-10-2022 Tobacco smoking status NHIS Unknown if ever smoked [facility] Start: 06-02-2020 None [facility] Start: 06-06-2020 Spouse/ Signif icant Other [facility] Start: 06-06-2020 Non-smoker [facility] Start: 06-12-2022 End: 09-29-2024 Alcohol intake Ex-drinker (finding) [facility] Start: 06-12-2022 End: 06-17-2023 Tobacco use panel [facility] Start: 03-22-2012 National Score (1-10 0), lower number is lower risk 34 [facility] Start: 09-06-2020 Gender identity Identifies as male gender (finding) [facility] Start: 09-06-2020 Sexual orientation Heterosexual (amish rogers) [facility] Medical Equipment Procedure Code Equipment Code Equipment Original Text Equipment Identifier Dates [place] Thk1.65mm P tfe 4x.5in Cardiovascular Sterile - [id number] Start: 09-12-2020 Valve On-X 25mm 32mm 23.4mm 25 Standard Cylindrical Ptfe 17.8mm 14.2mm - [id number] Start: 09-12-2020 Goals Date Patient Goal Desired Activity /State Personal health goal Functional Status Date Assessment Result Facility 09-17-2020 Are you deaf, or do you have serious difficulty hearing No 09/17/2020 12:12 PM EDWINT Mars Galvez RN No [facility] 09-17-2020 Are you blind, or do you have serious difficulty seeing, even when wearing glasses No 09/17/2020 12:12 PM Mars Grey RN No [facility] 09-17-2020 Do you have serious difficulty walking or climbing stairs No 09/17/2020 12:12 PM Mars Grey RN No [facility] 09-17-2020 Do you have difficul ty dressing or bathing No 09/17/2020 12:12 PM Mars Grey, SUKUMAR [facility] 09-17-2020 Because of a physica l, mental, or emotional condition, do you have difficulty doing errands alone such as visiting a physician's office or shopping No 09/17/2020 12:12 PM EDT Mars Galvez RN No [facility] Mental Status Date Assessment Result Facility 09-17-2020 Because of a physica l, mental, or emotional condition, do you have serious difficulty concentrating, remembering, or making decisions No 09/17/2020 12:12 PM EDT Mars Galvez RN No [facility] Clinical Notes 09-12-2020 to 01-22-2025 Telephone Encounter - Lucita Alba, [facility] - 12/21/2024 8:43 AM EDTTelephone Encounter - Lucita Alba, [facility] - 12/21/2024 8:43 AM EDTTelephone Encounter - Lydia Hanley, [facility] - 12/02/2024 10:10 AM EDT Note Date & Type Note Facility 01-22-2025 Note HNO ID: [id number] Author: SERENA HERRERA APRN.LIFT OPERATOR Service: ? Author Type: Nurse Practitioner Type: Progress Notes Filed: 01/22/2025 12:45 Note Text: [facility] Subjective Arsenio Villalobos is a 59 year old male. Patient presents with: Pain, Sinus: Sinus pain and pressure x 3.5-4 weeks The history is provided by the patient. No russian language professor was used. Sinus Pressure and Congestion: - Initial onset a few weeks ago; treated with doxycycline, which provided temporary relief. - Symptoms recurred yesterday, including headache, pressure, and pain to touch. - Using Sudafed and Flonase for symptom management. - Denies fever >100.4?F. - Reports postnasal drip; denies cough, congestion, or rhinorrhea. - History of penicillin allergy, with a reaction reported at age 5 or 6; details of the reaction are unknown. Review of Systems Constitutional: Positive for fatigue. Negative for fever. HENT: Positive for postnasal drip, rhinorrhea, sinus pressure and sinus pain. Negative for congestion, ear pain and sore throat. Eyes: Negative for discharge. Respiratory: Negative for cough, shortness of breath and wheezing. Gastrointestinal: Negative for abdominal pain, diarrhea, nausea and vomiting. Musculoskeletal: Positive for myalgias. Negative for arthralgias. Neurological: Positive for headaches. Constitutional: (-) fever Head: (+) sinus pressure, (+) headache, (+) facial tenderness Ears/Nose/Mouth/Throat: (+) nasal congestion, (+) postnasal drip Objective BP 112/76 Pulse 94 Temp 36.1 ?C (97 ?F) (Tympanic) Resp 16 Wt 95 kg (209 lb 7 oz) SpO2 96% BMI 30.93 kg/m? Physical Exam Vitals and nursing note reviewed. Constitutional: General: He is not in acute distress. Appearance: He is not diaphoretic. HENT: Head: Normocephalic and atraumatic. Right Ear: Tympanic membrane, ear canal and external ear normal. No middle ear effusion. Tympanic membrane is not injected, erythematous, retracted or bulging. Left Ear: Tympanic membrane, ear canal and external ear normal. No middle ear effusion. Tympanic membrane is not injected, erythematous, retracted or bulging. Nose: Mucosal edema, congestion and rhinorrhea present. Right Sinus: No maxillary sinus tenderness or frontal sinus tenderness. Left Sinus: No maxillary sinus tenderness or frontal sinus tenderness. Mouth/Throat: Pharynx: Uvula midline. Postnasal drip present. No posterior oropharyngeal erythema. Eyes: Conjunctiva/sclera: Conjunctivae normal. Pupils: Pupils are equal, round, and reactive to light. Cardiovascular: Rate and Rhythm: Normal rate and regular rhythm. Heart sounds: Normal heart sounds. Pulmonary: Effort: Pulmonary effort is normal. No respiratory distress. Breath sounds: Normal breath sounds. No wheezing or rales. Musculoskeletal: Cervical back: Normal range of motion and neck supple. Lymphadenopathy: Head: Right side of head: No submental, submandibular, tonsillar, preauricular or posterior auricular adenopathy. Left side of head: No submental, submandibular, tonsillar, preauricular or posterior auricular adenopathy. Skin: General: Skin is dry. Neurological: Mental Status: He is alert and oriented to person, place, and time. General: No acute distress. HEENT: Nasal congestion observed. CV: Normal heart sounds auscultated. Resp: Normal breath sounds auscultated. History and Record Review External record(s) reviewed: prior labs/imaging and prior outpatient record. Findings from review of outpatient records: previous sinusitis Findings from review of prior labs/imaging: Previous Renal Function Panel Reviewed 11/05/2024: BUN 11; Creatinine 1.04; Estimated Glomerular Filtration Rate 83 Differential Diagnoses - viral uri is more likely for the following reason(s): suggested by HANDP - bacterial sinusitis` is less likely for the following reason(s): possible recurrent sinusitis, HANDP not suggestive ASSESSMENT/PLAN: 1. Sinus pressure - ICD9: 478.19, ICD10: J34.89 (primary diagnosis) 2. Sinus congestion - ICD9: 478.19, ICD10: R09.81 Probable viral uri, versus bacterial sinusitis due to improvement with doxycycline Comfort measures as discussed, if no improvement patient to start cefdinir Patient to follow up with ENT due to frequent sinusitis. Diagnosis and treatment plan were discussed and questions were answered to the patient's satisfaction. Pt acknowledged understanding of concepts and follow up plan. Specific signs and symptoms that would indicate the need for higher level of care were discussed in detail warranting prompt ER evaluation. Serena Herrera APRN.LIFT OPERATOR [facility] 01-10-2025 Note HNO ID: [id number] Author: DAPHNEY WHEATLEY APRN.LIFT OPERATOR Service: ? Author Type: Nurse Practitioner Type: Progress Notes Filed: 01/10/2025 17:47 Note Text: [facility] C[facility] Earl Villalobos is a 59 year old male. Patient presents with: Pain, Sinus: Sinus pain and pressure, congestion, drainage and face hurts x 1 week HPI The patient is a 59-year-old male with a history of artificial heart valve on warfarin, presenting with sinus pressure, congestion, and drainage. Sinus Pressure and Congestion: - Sinus pressure, congestion, and drainage x1 week. - Woke up last night with facial throbbing and dental pain. - Taking Tylenol, Sudafed, and Afrin (once this week) with minimal relief. - Denies fever, sore throat, cough, dyspnea, or chest pain. - Denies significant ear pain or dizziness, but noted mild ear ache during severe headache last night. - History of occasional sinus infections. - Allergic to penicillin. Review of Systems Constitutional: (-) fever Head: (+) facial pain, (+) facial tenderness, (+) tooth pain Ears/Nose/Mouth/Throat: (+) nasal congestion, (+) nasal drainage, (+) sinus pressure, (-) sore throat, (-) ear pain Cardiovascular: (-) chest pain Respiratory: (-) shortness of breath, (-) cough Neurological: (-) dizziness Objective BP 108/76 Pulse 100 Temp 36.1 ?C (97 ?F) (Tympanic) Resp 16 Wt 96.2 kg (212 lb 1.3 oz) SpO2 97% BMI 31.32 kg/m? PAST MEDICAL HISTORY Diagnosis Date - Allergic rhinitis, cause unspecified - Aortic valve stenosis - Dysphagia 02/06/2015 - Hiatal hernia 02/06/2015 - HTN (hypertension) - Other specified disorder of gallbladder - Reflux esophagitis 02/06/2015 PAST SURGICAL HISTORY Procedure Laterality Date - COLONOSCOPY FLX DX W/COLLJ SPEC WHEN PFRMD 11/11/2012 [facility] - ESOPHAGOGASTRODUODENOSCOPY TRANSORAL DIAGNOSTIC 11/11/2012 EGD [facility] H-pylori negative - GASTROESOPHAG REFLX TEST W/TELEMTRY PH ELTRD 02/06/2015 - LAPS SURG CHOLECYSTECTOMY W/CHOLANGIOGRAPHY 10/28/2007 - PAST SURGICAL HISTORY OF 04/21/2008 2 cervical disc fusion - PAST SURGICAL HISTORY OF Bilateral hand, carpal tunnel - PAST SURGICAL HISTORY OF Right shoulder - PAST SURGICAL HISTORY OF 09/12/2020 [facility] [place] - PAST SURGICAL HISTORY OF 03/2020 [facility]ift -prostate - PILONIDAL CYST/SINUS EXCISION - RDCTJ TORSION TSTIS W/WO FIXJ CLAT TESTIS 14 years old - TONSILLECTOMY AND ADENOIDECTOMY - VASECTOMY - VASECTOMY UNI/BI SPX W/POSTOP SEMEN EXAMS ALLERGIES Penicillins and Tegaderm Ag Mesh [Silver] MEDICATIONS - semaglutide, weight loss, (WEGOVY) 2.4 mg/0.75 mL pen injector Inject 2.4 mg under the skin one time a week. - atorvastatin (LIPITOR) 20 mg tablet Take 1 tablet by mouth once daily. - metoprolol succinate ER (TOPROL XL) 100 mg TAKE 1 TABLET BY MOUTH EVERY DAY - MULTIVITAMIN ORAL Take by mouth. - losartan (COZAAR) 100 mg tablet Take 1 tablet by mouth once daily. - tamsulosin (FLOMAX) 0.4 mg Take 0.4 mg by mouth once daily. - warfarin (COUMADIN) 5 mg tablet 7.5 mg every Mon, Fri; 5 mg all other days (Patient taking differently: 7.5 mg every Mon, Fri, Friday, 5 mg all other days) - pantoprazole DR (PROTONIX) 40 mg tablet Take 1 tablet by mouth as needed. - aspirin 81 mg chewable tablet 1 tablet by ORAL/FEEDING TUBE route once daily. - buPROPion SR (ZYBAN SR; WELLBUTRIN SR) 150 mg 12 hr tablet Take by mouth once daily. - p-ephed hcl/cetirizine hcl(ZYRTEC-D 5 MG-120 MG 12 HR TAB) Take one(1) tablet two(2) times daily. - ALBUTEROL 90 MCG/ACTUATION AEROSOL INHALER Inhale one(1) - two(2) puffs four(4) times a day as needed for wheezing and shortness of breath. - doxycycline monohydrate (MONODOX) 100 mg capsule Take 1 capsule by mouth two times a day. - fluticasone (FLONASE ALLERGY RELIEF) 50 mcg/actuation nasal spray Use 2 sprays in each nostril once daily. FAMILY HISTORY Problem Relation Age of Onset - Breast Cancer Mother - Hypertension Father - Alzheimer's Disease Father - No Known Problems Maternal Grandmother - No Known Problems Maternal Grandfather - Parkinson?s Disease Paternal Grandmother - No Known Problems Paternal Grandfather - Colon Cancer No Family History SOCIAL HISTORY[1] Physical Exam Vitals and nursing note reviewed. Constitutional: General: He is not in acute distress. Appearance: Normal appearance. He is not ill-appearing. HENT: Right Ear: Tympanic membrane, ear canal and external ear normal. Left Ear: Tympanic membrane, ear canal and external ear normal. Nose: Nasal tenderness, mucosal edema, congestion and rhinorrhea present. Mouth/Throat: Mouth: Mucous membranes are moist. Pharynx: Oropharynx is clear. No posterior oropharyngeal erythema. Cardiovascular: Rate and Rhythm: Normal rate and regular rhythm. Heart sounds: Normal heart sounds. Pulmonary: Effort: Pulmonary effort is normal. No respiratory distress. Breath sounds: Normal (more content not included)... [facility] 12-21-2024 Telephone encounter Note [facility] Anticoagulation Episode Summary Anticoagulation Care Providers Provider Role Specialty Phone number Juan Willis MD Referring Cardiology [phone] Arsenio Villalobos is a 59 year old year old male patient being evaluated today for a Telemanagement visit. Patient is currently on the following anticoagulant(s) Warfarin. Labs Lab Results Component Value Date INR 2.6 (A) 12/20/2024 INR 1.8 12/02/2024 INR 2.0 11/19/2024 Lab Results Component Value Date HB 14.5 06/12/2022 HB 15.2 10/24/2020 HB 12.9 (L) 09/22/2020 Lab Results Component Value Date HCT 43.7 06/12/2022 HCT 46.6 10/24/2020 HCT 40.0 09/22/2020 Lab Results Component Value Date PLT 188 06/12/2022 PLT 286 10/24/2020 PLT 488 (H) 09/22/2020 Lab Results Component Value Date CREAT 1.04 11/05/2024 CREAT 1.05 06/12/2022 CREAT 1.18 10/24/2020 No components found for: [id number] Lab Results Component Value Date ALT 32 11/05/2024 ALT 27 06/12/2022 ALT 19 10/24/2020 Lab Results Component Value Date AST 34 11/05/2024 AST 29 06/12/2022 AST 24 10/24/2020 CrCl cannot be calculated (Unknown ideal weight.). ALLERGIES Allergen Reactions Penicillins Unknown childhood Tegaderm Ag Mesh [S* Rash, Swelling Indication for Warfarin: Anticoagulation Episode Summary Current INR goal: 1.5-2.0 Assessment: INR result of 2.6 is SUPRAtherapeutic due to: Decreased vitamin k intake Plan: Current Warfarin Dosing As of 12/21/2024 Full warfarin instructions: 12/21: 2.5 mg; Otherwise 2.5 mg every Fri, Sat; 5 mg all other days Called and spoke to patient/caregiver Advised patient to decrease dose for 1 day only then resume weekly regimen as noted above Next home INR check scheduled on 01/04/2025 Patient verbalizes understanding of the plan. Patient advised to call the PAC with any medication changes, bleeding/bruising concerns, recent changes in vitamin k consumption, if any procedures are coming up, if they have been ill or in the hospital, and if they have missed any doses of warfarin. Lucita Alba [facility] Clinical Pharmacist, Pharmacy Anticoagulation Clinic Pharmacy Anticoagulation Clinic Pager: [phone]. [facility] 12-21-2024 Miscellaneous Notes [facility] Anticoagulation Episode Summary Anticoagulation Care Providers Provider Role Specialty Phone number Juan Willis MD Referring Cardiology [phone] Arsenio Villalobos is a 59 year old year old male patient being evaluated today for a Telemanagement visit. Patient is currently on the following anticoagulant(s) Warfarin. Labs Lab Results Component Value Date INR 2.6 (A) 12/20/2024 INR 1.8 12/02/2024 INR 2.0 11/19/2024 Lab Results Component Value Date HB 14.5 06/12/2022 HB 15.2 10/24/2020 HB 12.9 (L) 09/22/2020 Lab Results Component Value Date HCT 43.7 06/12/2022 HCT 46.6 10/24/2020 HCT 40.0 09/22/2020 Lab Results Component Value Date PLT 188 06/12/2022 PLT 286 10/24/2020 PLT 488 (H) 09/22/2020 Lab Results Component Value Date CREAT 1.04 11/05/2024 CREAT 1.05 06/12/2022 CREAT 1.18 10/24/2020 No components found for: [email or web address] Lab Results Component Value Date ALT 32 11/05/2024 ALT 27 06/12/2022 ALT 19 10/24/2020 Lab Results Component Value Date AST 34 11/05/2024 AST 29 06/12/2022 AST 24 10/24/2020 CrCl cannot be calculated (Unknown ideal weight.). ALLERGIES Allergen Reactions Penicillins Unknown childhood Tegaderm Ag Mesh [S* Rash, Swelling Indication for Warfarin: Anticoagulation Episode Summary Current INR goal: 1.5-2.0 Assessment: INR result of 2.6 is SUPRAtherapeutic due to: Decreased vitamin k intake Plan: Current Warfarin Dosing As of 12/21/2024 Full warfarin instructions: 12/21: 2.5 mg; Otherwise 2.5 mg every Fri, Sat; 5 mg all other days Called and spoke to patient/caregiver Advised patient to decrease dose for 1 day only then resume weekly regimen as noted above Next home INR check scheduled on 01/04/2025 Patient verbalizes understanding of the plan. Patient advised to call the PAC with any medication changes, bleeding/bruising concerns, recent changes in vitamin k consumption, if any procedures are coming up, if they have been ill or in the hospital, and if they have missed any doses of warfarin. Lucita Alba RPh Clinical Pharmacist, Pharmacy Anticoagulation Clinic Pharmacy Antico[facility] Pager: [phone]. documented in this encounter [facility] 12-02-2024 Telephone encounter Note [facility] Anticoagulation Episode Summary Anticoagulation Care Providers Provider Role Specialty Phone number Juan Willis MD Referring Cardiology [phone] Arsenio Villalobos is a 59 year old year old male patient being evaluated today for a Telemanagement visit. Patient is currently on the following anticoagulant(s) Warfarin. Labs Lab Results Component Value Date INR 1.8 12/02/2024 INR 2.0 11/19/2024 INR 2.8 (A) 11/10/2024 Lab Results Component Value Date HB 14.5 06/12/2022 HB 15.2 10/24/2020 HB 12.9 (L) 09/22/2020 Lab Results Component Value Date HCT 43.7 06/12/2022 HCT 46.6 10/24/2020 HCT 40.0 09/22/2020 Lab Results Component Value Date PLT 188 06/12/2022 PLT 286 10/24/2020 PLT 488 (H) 09/22/2020 Lab Results Component Value Date CREAT 1.04 11/05/2024 CREAT 1.05 06/12/2022 CREAT 1.18 10/24/2020 No components found for: [email or web address] Lab Results Component Value Date ALT 32 11/05/2024 ALT 27 06/12/2022 ALT 19 10/24/2020 Lab Results Component Value Date AST 34 11/05/2024 AST 29 06/12/2022 AST 24 10/24/2020 CrCl cannot be calculated (Unknown ideal weight.). ALLERGIES Allergen Reactions Penicillins Unknown childhood Tegaderm Ag Mesh [S* Rash, Swelling Indication for Warfarin: detention current use of anticoagulant H/o mechanical aortic valve replacement Anticoagulation Episode Summary Current INR goal: 1.5-2.0 Assessment: INR result of 1.8 is therapeutic Plan: Current Warfarin Dosing As of 12/02/2024 Full warfarin instructions: 2.5 mg every Fri, Sat; 5 mg all other days Sent [employer] message Advised patient to continue current weekly dose as noted above Next home INR check scheduled on 12/16/2024 Patient advised to call the PAC with any medication changes, bleeding/bruising concerns, recent changes in vitamin k consumption, if any procedures are coming up, if they have been ill or in the hospital, and if they have missed any doses of warfarin. Lydia Hanley RPh Clinical Pharmacist, Pharmacy Anticoagulation Clinic Pharmacy Anticoagulation Clinic Pager: [phone]. [facility] 12-02-2024 Miscellaneous Notes [facility] Anticoagulation Episode Summary Anticoagulation Care Providers Provider Role Specialty Phone number Juan Willis MD Referring Cardiology [phone] Arsenio Villalobos is a 59 year old year old male patient being evaluated today for a Telemanagement visit. Patient is currently on the following anticoagulant(s) Warfarin. Labs Lab Results Component Value Date INR 1.8 12/02/2024 INR 2.0 11/19/2024 INR 2.8 (A) 11/10/2024 Lab Results Component Value Date HB 14.5 06/12/2022 HB 15.2 10/24/2020 HB 12.9 (L) 09/22/2020 Lab Results Component Value Date HCT 43.7 06/12/2022 HCT 46.6 10/24/2020 HCT 40.0 09/22/2020 Lab Results Component Value Date PLT 188 06/12/2022 PLT 286 10/24/2020 PLT 488 (H) 09/22/2020 Lab Results Component Value Date CREAT 1.04 11/05/2024 CREAT 1.05 06/12/2022 CREAT 1.18 10/24/2020 No components found for: [email or web address] Lab Results Component Value Date ALT 32 11/05/2024 ALT 27 06/12/2022 ALT 19 10/24/2020 Lab Results Component Value Date AST 34 11/05/2024 AST 29 06/12/2022 AST 24 10/24/2020 CrCl cannot be calculated (Unknown ideal weight.). 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 H/o mechanical aortic valve replacement Anticoagulation Episode Summary Current INR goal: 1.5-2.0 Assessment: INR result of 1.8 is therapeutic Plan: Current Warfarin Dosing As of 12/02/2024 Full warfarin instructions: 2.5 mg every Fri, Sat; 5 mg all other days Sent [employer] message Advised patient to continue current weekly dose as noted above Next home INR check scheduled on 12/16/2024 Patient advised to call the PAC with any medication changes, bleeding/bruising concerns, recent changes in vitamin k consumption, if any procedures are coming up, if they have been ill or in the hospital, and if they have missed any doses of warfarin. Lydia Hanley RPh Clinical Pharmacist, Pharmacy Anticoagulation Clinic Pharmacy Anticoagulation Clinic Pager: [phone]. documented in this encounter [facility] 11-19-2024 Telephone encounter Note [facility] Anticoagulation Episode Summary Anticoagulation Care Providers Provider Role Specialty Phone number Juan Willis MD Referring Cardiology [phone] Arsenio Villalobos is a 59 year old year old male patient being evaluated today for a Telemanagement visit. Patient is currently on the following anticoagulant(s) Warfarin. Labs Lab Results Component Value Date INR 2.0 11/19/2024 INR 2.8 (A) 11/10/2024 INR 3.0 (A) 11/03/2024 Lab Results Component Value Date HB 14.5 06/12/2022 HB 15.2 10/24/2020 HB 12.9 (L) 09/22/2020 Lab Results Component Value Date HCT 43.7 06/12/2022 HCT 46.6 10/24/2020 HCT 40.0 09/22/2020 Lab Results Component Value Date PLT 188 06/12/2022 PLT 286 10/24/2020 PLT 488 (H) 09/22/2020 Lab Results Component Value Date CREAT 1.04 11/05/2024 CREAT 1.05 06/12/2022 CREAT 1.18 10/24/2020 No components found for: [email or web address] Lab Results Component Value Date ALT 32 11/05/2024 ALT 27 06/12/2022 ALT 19 10/24/2020 Lab Results Component Value Date AST 34 11/05/2024 AST 29 06/12/2022 AST 24 10/24/2020 CrCl cannot be calculated (Unknown ideal weight.). ALLERGIES Allergen Reactions Penicillins Unknown childhood Tegaderm Ag Mesh [S* Rash, Swelling Indication for Warfarin: Anticoagulation Episode Summary Current INR goal: 1.5-2.0 Assessment: INR result of 2 is therapeutic Plan: Current Warfarin Dosing As of 11/19/2024 Full warfarin instructions: 2.5 mg every Fri, Sat; 5 mg all other days Called and spoke to patient/caregiver Advised patient to continue current weekly dose as noted above Next home INR check scheduled on 12/02/2024 Patient verbalizes understanding of the plan. Patient advised to call the PAC with any medication changes, bleeding/bruising concerns, recent changes in vitamin k consumption, if any procedures are coming up, if they have been ill or in the hospital, and if they have missed any doses of warfarin. Lucita Alba RPh Clinical Pharmacist, Pharmacy Anticoagulation Clinic Pharmacy Anticoagulation Clinic Pager: [phone]. [facility] 11-19-2024 Miscellaneous Notes [facility] Anticoagulation Episode Summary Anticoagulation Care Providers Provider Role Specialty Phone number Juan Willis MD Referring Cardiology [phone] Arsenio Villalobos is a 59 year old year old male patient being evaluated today for a Telemanagement visit. Patient is currently on the following anticoagulant(s) Warfarin. Labs Lab Results Component Value Date INR 2.0 11/19/2024 INR 2.8 (A) 11/10/2024 INR 3.0 (A) 11/03/2024 Lab Results Component Value Date HB 14.5 06/12/2022 HB 15.2 10/24/2020 HB 12.9 (L) 09/22/2020 Lab Results Component Value Date HCT 43.7 06/12/2022 HCT 46.6 10/24/2020 HCT 40.0 09/22/2020 Lab Results Component Value Date PLT 188 06/12/2022 PLT 286 10/24/2020 PLT 488 (H) 09/22/2020 Lab Results Component Value Date CREAT 1.04 11/05/2024 CREAT 1.05 06/12/2022 CREAT 1.18 10/24/2020 No components found for: [email or web address] Lab Results Component Value Date ALT 32 11/05/2024 ALT 27 06/12/2022 ALT 19 10/24/2020 Lab Results Component Value Date AST 34 11/05/2024 AST 29 06/12/2022 AST 24 10/24/2020 CrCl cannot be calculated (Unknown ideal weight.). ALLERGIES Allergen Reactions Penicillins Unknown childhood Tegaderm Ag Mesh [S* Rash, Swelling Indication for Warfarin: Anticoagulation Episode Summary Current INR goal: 1.5-2.0 Assessment: INR result of 2 is therapeutic Plan: Current Warfarin Dosing As of 11/19/2024 Full warfarin instructions: 2.5 mg every Fri, Sat; 5 mg all other days Called and spoke to patient/caregiver Advised patient to continue current weekly dose as noted above Next home INR check scheduled on 12/02/2024 Patient verbalizes understanding of the plan. Patient advised to call the PAC with any medication changes, bleeding/bruising concerns, recent changes in vitamin k consumption, if any procedures are coming up, if they have been ill or in the hospital, and if they have missed any doses of warfarin. Lucita Alba RPh Clinical Pharmacist, Pharmacy Anticoagulation Clinic Pharmacy Anticoagulation Clinic Pager: [phone]. documented in this encounter [facility] 11-12-2024 Radiology Diagnostic study note [facility] [address] [place] [address] HIP, UNI W/ Pelvis 2-3 Views MR#: [id number] Acct: [id number] Name: ARSENIO VILLALOBOS Rep #: [id number] : [id number] M [id number] From: Vesna Steven MD PCP: Dr. Gilbert Vanegas MD Status: REG CLI Study:HIP, UNI W/ Pelvis 2-3 Views Date of Ex am: 11/11/24 Exam# [id number] Ordering Dr: Alonso Vanegas MD PROCEDURE: HIP, UNI W/ PELVIS 2-3 VIEWS 11/11/2024 REASON FOR EXAM: LEFT HIP PAIN, LEFT HIP TECHNIQUE: HIP, UNI W/ PELVIS 2-3 VIEWS COMPARISON: No FINDINGS: Prior prostate surgery. Intact pelvic ring. Mild left hip osteoarthritis. No acute bone or soft tissue pathology. RAD/HIP, UNI W/ Pelvis 2-3 Views IMPRESSION: Mild left hip osteoarthritis. [facility]: Dr. Gilbert Vanegas MD ~ [employer]: Signed [facility] 11-10-2024 Telephone encounter Note [facility] Anticoagulation Episode Summary Anticoagulation Care Providers Provider Role Specialty Phone number Juan Willis MD Referring Cardiology [phone] Arsenio Villalobos is a 59 year old year old male patient being evaluated today for a Telemanagement visit. Patient is currently on the following anticoagulant(s) Warfarin. Labs Lab Results Component Value Date INR 2.8 (A) 11/10/2024 INR 3.0 (A) 11/03/2024 INR 1.7 10/21/2024 Lab Results Component Value Date HB 14.5 06/12/2022 HB 15.2 10/24/2020 HB 12.9 (L) 09/22/2020 Lab Results Component Value Date HCT 43.7 06/12/2022 HCT 46.6 10/24/2020 HCT 40.0 09/22/2020 Lab Results Component Value Date PLT 188 06/12/2022 PLT 286 10/24/2020 PLT 488 (H) 09/22/2020 Lab Results Component Value Date CREAT 1.04 11/05/2024 CREAT 1.05 06/12/2022 CREAT 1.18 10/24/2020 No components found for: [email or web address] Lab Results Component Value Date ALT 32 11/05/2024 ALT 27 06/12/2022 ALT 19 10/24/2020 Lab Results Component Value Date AST 34 11/05/2024 AST 29 06/12/2022 AST 24 10/24/2020 CrCl cannot be calculated (Unknown ideal weight.). ALLERGIES Allergen Reactions Penicillins Unknown childhood Tegaderm Ag Mesh [S* Rash, Swelling Indication for Warfarin: detention current use of anticoagulant H/o mechanical aortic valve replacement Anticoagulation Episode Summary Current INR goal: 1.5-2.0 Assessment: INR result of 2.8 is supratherapeutic likely due to less vit K but may try to get a few more in his diet. He started lipitor a few weeks ago. Plan: Current Warfarin Dosing As of 11/10/2024 Full warfarin instructions: 2.5 mg every Fri, Sat; 5 mg all other days Called and spoke to patient/caregiver Advised patient to decrease total weekly regimen Next home INR check scheduled on 11/17/2024 Patient verbalizes understanding of the plan. Patient denies need for refills. Patient advised to call the PAC with any medication changes, bleeding/bruising concerns, recent changes in vitamin k consumption, if any procedures are coming up, if they have been ill or in the hospital, and if they have missed any doses of warfarin. Monalisa Melendez RPh Clinical Pharmacist, Pharmacy Anticoagulation Clinic Pharmacy Anticoagulation Clinic Pager: [phone]. [facility] 11-10-2024 Miscellaneous Notes [facility] Anticoagulation Episode Summary Anticoagulation Care Providers Provider Role Specialty Phone number Juan Willis MD Referring Cardiology [phone] Arsenio Villalobos is a 59 year old year old male patient being evaluated today for a Telemanagement visit. Patient is currently on the following anticoagulant(s) Warfarin. Labs Lab Results Component Value Date INR 2.8 (A) 11/10/2024 INR 3.0 (A) 11/03/2024 INR 1.7 10/21/2024 Lab Results Component Value Date HB 14.5 06/12/2022 HB 15.2 10/24/2020 HB 12.9 (L) 09/22/2020 Lab Results Component Value Date HCT 43.7 06/12/2022 HCT 46.6 10/24/2020 HCT 40.0 09/22/2020 Lab Results Component Value Date PLT 188 06/12/2022 PLT 286 10/24/2020 PLT 488 (H) 09/22/2020 Lab Results Component Value Date CREAT 1.04 11/05/2024 CREAT 1.05 06/12/2022 CREAT 1.18 10/24/2020 No components found for: [email or web address] Lab Results Component Value Date ALT 32 11/05/2024 ALT 27 06/12/2022 ALT 19 10/24/2020 Lab Results Component Value Date AST 34 11/05/2024 AST 29 06/12/2022 AST 24 10/24/2020 CrCl cannot be calculated (Unknown ideal weight.). 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 He started lipitor a few weeks ago. Plan: Current Warfarin Dosing As of 11/10/2024 Full warfarin instructions: 2.5 mg every Fri, Sat; 5 mg all other days Called and spoke to patient/caregiver Advised patient to decrease total weekly regimen Next home INR check scheduled on 11/17/2024 Patient verbalizes understanding of the plan. Patient denies need for refills. Patient advised to call the PAC with any medication changes, bleeding/bruising concerns, recent changes in vitamin k consumption, if any procedures are coming up, if they have been ill or in the hospital, and if they have missed any doses of warfarin. Monalisa Melendez RPh Clinical Pharmacist, Pharmacy Anticoagulation Clinic Pharmacy Anticoagulation Clinic Pager: [phone]. documented in this encounter [facility] 11-03-2024 Telephone encounter Note [facility] Anticoagulation Episode Summary Anticoagulation Care Providers Provider Role Specialty Phone number Juan Willis MD Referring Cardiology [phone] Arsenio Villalobos is a 59 year old year old male patient being evaluated today for a Telemanagement visit. Patient is currently on the following anticoagulant(s) Warfarin. Labs Lab Results Component Value Date INR 3.0 (A) 11/03/2024 INR 1.7 10/21/2024 INR 1.6 10/13/2024 Lab Results Component Value Date HB 14.5 06/12/2022 HB 15.2 10/24/2020 HB 12.9 (L) 09/22/2020 Lab Results Component Value Date HCT 43.7 06/12/2022 HCT 46.6 10/24/2020 HCT 40.0 09/22/2020 Lab Results Component Value Date PLT 188 06/12/2022 PLT 286 10/24/2020 PLT 488 (H) 09/22/2020 Lab Results Component Value Date CREAT 1.05 06/12/2022 CREAT 1.18 10/24/2020 CREAT 1.13 09/22/2020 No components found for: [email or web address] Lab Results Component Value Date ALT 27 06/12/2022 ALT 19 10/24/2020 ALT 32 09/22/2020 Lab Results Component Value Date AST 29 06/12/2022 AST 24 10/24/2020 AST 30 09/22/2020 CrCl cannot be calculated (Patient's most recent lab result is older than the maximum 180 days allowed.). 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 Patient advised to call the PAC with any medication changes, bleeding/bruising concerns, recent changes in vitamin k consumption, if any procedures are coming up, if they have been ill or in the hospital, and if they have missed any doses of warfarin. Monalisa Melendez RPh Clinical Pharmacist, Pharmacy Anticoagulation Clinic Pharmacy Anticoagulation Clinic Pager: [phone]. [facility] 11-03-2024 Miscellaneous Notes [facility] Anticoagulation Episode Summary Anticoagulation Care Providers Provider Role Specialty Phone number Juan Willis MD Referring Cardiology [phone] Arsenio Villalobos is a 59 year old year old male patient being evaluated today for a Telemanagement visit. Patient is currently on the following anticoagulant(s) Warfarin. Labs Lab Results Component Value Date INR 3.0 (A) 11/03/2024 INR 1.7 10/21/2024 INR 1.6 10/13/2024 Lab Results Component Value Date HB 14.5 06/12/2022 HB 15.2 10/24/2020 HB 12.9 (L) 09/22/2020 Lab Results Component Value Date HCT 43.7 06/12/2022 HCT 46.6 10/24/2020 HCT 40.0 09/22/2020 Lab Results Component Value Date PLT 188 06/12/2022 PLT 286 10/24/2020 PLT 488 (H) 09/22/2020 Lab Results Component Value Date CREAT 1.05 06/12/2022 CREAT 1.18 10/24/2020 CREAT 1.13 09/22/2020 No components found for: [email or web address] Lab Results Component Value Date ALT 27 06/12/2022 ALT 19 10/24/2020 ALT 32 09/22/2020 Lab Results Component Value Date AST 29 06/12/2022 AST 24 10/24/2020 AST 30 09/22/2020 CrCl cannot be calculated (Patient's most recent lab result is older than the maximum 180 days allowed.). ALLERGIES Allergen Reactions Penicillins Unknown childhood Tegaderm Ag Mesh [S* Rash, Swelling Indication for Warfarin: detention current use of anticoagulant H/o mechanical aortic valve replacement Anticoagulation Episode Summary Current INR goal: 1.5-2.0 Assessment: INR result of 3.0 is SUPRAtherapeutic due to: unknown cause - did not speak to patient Plan: Current Warfarin Dosing As of 11/03/2024 Full warfarin instructions: 11/03: Hold; Otherwise 5 mg every day Left voice message Advised patient to hold 1 dose then continue current regimen Next point of care INR check scheduled on 11/19/2024 Asked him to call with questions or concerns/ or changes. Patient advised to call the PAC with any medication changes, bleeding/bruising concerns, recent changes in vitamin k consumption, if any procedures are coming up, if they have been ill or in the hospital, and if they have missed any doses of warfarin. Monalisa Melendez RPh Clinical Pharmacist, Pharmacy Anticoagulation Clinic Pharmacy Anticoagulation Clinic Pager: [phone]. documented in this encounter [facility] 10-21-2024 Telephone encounter Note [facility] Anticoagulation Episode Summary Anticoagulation Care Providers Provider Role Specialty Phone number Juan Willis MD Referring Cardiology [phone] Arsenio Villalobos is a 59 year old year old male patient being evaluated today for a Telemanagement visit. Patient is currently on the following anticoagulant(s) Warfarin. Labs Lab Results Component Value Date INR 1.7 10/21/2024 INR 1.6 10/13/2024 INR 1.8 10/02/2024 Lab Results Component Value Date HB 14.5 06/12/2022 HB 15.2 10/24/2020 HB 12.9 (L) 09/22/2020 Lab Results Component Value Date HCT 43.7 06/12/2022 HCT 46.6 10/24/2020 HCT 40.0 09/22/2020 Lab Results Component Value Date PLT 188 06/12/2022 PLT 286 10/24/2020 PLT 488 (H) 09/22/2020 Lab Results Component Value Date CREAT 1.05 06/12/2022 CREAT 1.18 10/24/2020 CREAT 1.13 09/22/2020 No components found for: [email or web address] Lab Results Component Value Date ALT 27 06/12/2022 ALT 19 10/24/2020 ALT 32 09/22/2020 Lab Results Component Value Date AST 29 06/12/2022 AST 24 10/24/2020 AST 30 09/22/2020 CrCl cannot be calculated (Patient's most recent lab result is older than the maximum 180 days allowed.). 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 H/o mechanical aortic valve replacement Anticoagulation Episode Summary Current INR goal: 1.5-2.0 Assessment: INR result of 1.7 is therapeutic Plan: Current Warfarin Dosing As of 10/21/2024 Full warfarin instructions: 5 mg every day Sent [employer] message Advised patient to continue current weekly dose as noted above Next home INR check scheduled on 11/04/2024 Patient advised to call the PAC with any medication changes, bleeding/bruising concerns, recent changes in vitamin k consumption, if any procedures are coming up, if they have been ill or in the hospital, and if they have missed any doses of warfarin. Lydia Hanley RPh Clinical Pharmacist, Pharmacy Anticoagulation Clinic Pharmacy Anticoagulation Clinic Pager: [phone]. [facility] 10-21-2024 Miscellaneous Notes [facility] Anticoagulation Episode Summary Anticoagulation Care Providers Provider Role Specialty Phone number Juan Willis MD Referring Cardiology [phone] Arsenio Villalobos is a 59 year old year old male patient being evaluated today for a Telemanagement visit. Patient is currently on the following anticoagulant(s) Warfarin. Labs Lab Results Component Value Date INR 1.7 10/21/2024 INR 1.6 10/13/2024 INR 1.8 10/02/2024 Lab Results Component Value Date HB 14.5 06/12/2022 HB 15.2 10/24/2020 HB 12.9 (L) 09/22/2020 Lab Results Component Value Date HCT 43.7 06/12/2022 HCT 46.6 10/24/2020 HCT 40.0 09/22/2020 Lab Results Component Value Date PLT 188 06/12/2022 PLT 286 10/24/2020 PLT 488 (H) 09/22/2020 Lab Results Component Value Date CREAT 1.05 06/12/2022 CREAT 1.18 10/24/2020 CREAT 1.13 09/22/2020 No components found for: [email or web address] Lab Results Component Value Date ALT 27 06/12/2022 ALT 19 10/24/2020 ALT 32 09/22/2020 Lab Results Component Value Date AST 29 06/12/2022 AST 24 10/24/2020 AST 30 09/22/2020 CrCl cannot be calculated (Patient's most recent lab result is older than the maximum 180 days allowed.). 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 H/o mechanical aortic valve replacement Anticoagulation Episode Summary Current INR goal: 1.5-2.0 Assessment: INR result of 1.7 is therapeutic Plan: Current Warfarin Dosing As of 10/21/2024 Full warfarin instructions: 5 mg every day Sent [employer] message Advised patient to continue current weekly dose as noted above Next home INR check scheduled on 11/04/2024 Patient advised to call the PAC with any medication changes, bleeding/bruising concerns, recent changes in vitamin k consumption, if any procedures are coming up, if they have been ill or in the hospital, and if they have missed any doses of warfarin. Lydia Hanley RPh Clinical Pharmacist, Pharmacy Anticoagulation Clinic Pharmacy [facility] Pager: [phone]. documented in this encounter [facility] 10-19-2024 Note Addended by: ARSENIO LUNA on: 10/19/2024 04:17 PM Modules accepted: Orders [facility] 10-19-2024 Miscellaneous Notes Addended by: ARSENIO LUNA on: 10/19/2024 04:17 PM Modules accepted: Orders The following approved medication requests have been transmitted electronically. Requested Prescriptions Signed Prescriptions Disp Refills atorvastatin (LIPITOR) 20 mg tablet 90 tablet 3 Sig: Take 1 tablet by mouth once daily. Authorizing Provider: Mary LUNA APRN.LIFT OPERATOR documented in this encounter [facility] 10-19-2024 Telephone encounter Note The following approved medication requests have been transmitted electronically. Requested Prescriptions Signed Prescriptions Disp Refills atorvastatin (LIPITOR) 20 mg tablet 90 tablet 3 Sig: Take 1 tablet by mouth once daily. Authorizing Provider: Mary LUNA APRN.LIFT OPERATOR [facility] 10-13-2024 Telephone encounter Note [facility] Anticoagulation Episode Summary Anticoagulation Care Providers Provider Role Specialty Phone number Juan Willis MD Referring Cardiology [phone] Arsenio Villalobos is a 59 year old year old male patient being evaluated today for a Telemanagement visit. Patient is currently on the following anticoagulant(s) Warfarin. Labs Lab Results Component Value Date INR 1.6 10/13/2024 INR 1.8 10/02/2024 INR 3.2 (A) 09/10/2024 Lab Results Component Value Date HB 14.5 06/12/2022 HB 15.2 10/24/2020 HB 12.9 (L) 09/22/2020 Lab Results Component Value Date HCT 43.7 06/12/2022 HCT 46.6 10/24/2020 HCT 40.0 09/22/2020 Lab Results Component Value Date PLT 188 06/12/2022 PLT 286 10/24/2020 PLT 488 (H) 09/22/2020 Lab Results Component Value Date CREAT 1.05 06/12/2022 CREAT 1.18 10/24/2020 CREAT 1.13 09/22/2020 No components found for: [id number] Lab Results Component Value Date ALT 27 06/12/2022 ALT 19 10/24/2020 ALT 32 09/22/2020 Lab Results Component Value Date AST 29 06/12/2022 AST 24 10/24/2020 AST 30 09/22/2020 CrCl cannot be calculated (Patient's most recent lab result is older than the maximum 180 days allowed.). 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 H/o mechanical aortic valve replacement Anticoagulation Episode Summary Current INR goal: 1.5-2.0 Assessment: INR result of 1.6 is therapeutic Plan: Current Warfarin Dosing As of 10/13/2024 Full warfarin instructions: 5 mg every day Called and spoke to patient/caregiver Advised patient to continue current weekly dose as noted above Next home INR check scheduled on 10/27/2024 Patient advised to call the PAC with any medication changes, bleeding/bruising concerns, recent changes in vitamin k consumption, if any procedures are coming up, if they have been ill or in the hospital, and if they have missed any doses of warfarin. Monalisa Melendez RPh Clinical Pharmacist, Pharmacy Anticoagulation Clinic Pharmacy Anticoagulation Clinic Pager: [phone]. [facility] 10-13-2024 Miscellaneous Notes [facility] Anticoagulation Episode Summary Anticoagulation Care Providers Provider Role Specialty Phone number Juan Willis MD Referring Cardiology [phone] Arsenio Villalobos is a 59 year old year old male patient being evaluated today for a Telemanagement visit. Patient is currently on the following anticoagulant(s) Warfarin. Labs Lab Results Component Value Date INR 1.6 10/13/2024 INR 1.8 10/02/2024 INR 3.2 (A) 09/10/2024 Lab Results Component Value Date HB 14.5 06/12/2022 HB 15.2 10/24/2020 HB 12.9 (L) 09/22/2020 Lab Results Component Value Date HCT 43.7 06/12/2022 HCT 46.6 10/24/2020 HCT 40.0 09/22/2020 Lab Results Component Value Date PLT 188 06/12/2022 PLT 286 10/24/2020 PLT 488 (H) 09/22/2020 Lab Results Component Value Date CREAT 1.05 06/12/2022 CREAT 1.18 10/24/2020 CREAT 1.13 09/22/2020 No components found for: [email or web address] Lab Results Component Value Date ALT 27 06/12/2022 ALT 19 10/24/2020 ALT 32 09/22/2020 Lab Results Component Value Date AST 29 06/12/2022 AST 24 10/24/2020 AST 30 09/22/2020 CrCl cannot be calculated (Patient's most recent lab result is older than the maximum 180 days allowed.). ALLERGIES Allergen Reactions Penicillins Unknown childhood Tegaderm Ag Mesh [S* Rash, Swelling Indication for Warfarin: detention current use of anticoagulant H/o mechanical aortic valve replacement Anticoagulation Episode Summary Current INR goal: 1.5-2.0 Assessment: INR result of 1.6 is therapeutic Plan: Current Warfarin Dosing As of 10/13/2024 Full warfarin instructions: 5 mg every day Called and spoke to patient/caregiver Advised patient to continue current weekly dose as noted above Next home INR check scheduled on 10/27/2024 Patient advised to call the PAC with any medication changes, bleeding/bruising concerns, recent changes in vitamin k consumption, if any procedures are coming up, if they have been ill or in the hospital, and if they have missed any doses of warfarin. Monalisa Melendez RPh Clinical Pharmacist, Pharmacy Anticoagulation Clinic Pharmacy Anticoagulation Clinic Pager: [phone]. documented in this encounter [facility] 10-04-2024 Telephone encounter Note [facility] Anticoagulation Episode Summary Anticoagulation Care Providers Provider Role Specialty Phone number Juan Willis MD Referring Cardiology [phone] Arsenio Villalobos is a 59 year old year old male patient being evaluated today for a Telemanagement visit. Patient is currently on the following anticoagulant(s) Warfarin. Labs PT INR (no units) Date Value 03/14/2022 1.4 biotel 10/12/2021 2.7 07/30/2021 3.6 biotel INR Home CoaguChek (no units) Date Value 10/02/2024 1.8 09/10/2024 3.2 08/23/2024 3.2 Hemoglobin (g/dL) Date Value 06/12/2022 14.5 10/24/2020 15.2 Hematocrit (%) Date Value 06/12/2022 43.7 10/24/2020 46.6 Platelet Count (k/uL) Date Value 06/12/2022 188 10/24/2020 286 Creatinine (mg/dL) Date Value 06/12/2022 1.05 10/24/2020 1.18 09/22/2020 1.13 09/17/2020 0.94 Bilirubin, Total (mg/dL) Date Value 06/12/2022 0.4 10/24/2020 0.4 ALT (U/L) Date Value 06/12/2022 27 10/24/2020 19 AST (U/L) Date Value 06/12/2022 29 10/24/2020 24 CrCl cannot be calculated (Patient's most recent lab result is older than the maximum 180 days allowed.). ALLERGIES Allergen Reactions Penicillins Unknown childhood Tegaderm Ag Mesh [S* Rash, Swelling Indication for Warfarin: Anticoagulation Episode Summary Current INR goal: 1.5-2.0 Assessment: INR result of 1.8 is therapeutic Plan: Current Warfarin Dosing As of 10/04/2024 Full warfarin instructions: 5 mg every day Sent [employer] message Advised patient to continue current weekly dose as noted above Next INR check due on 10/18/2024 Melany Wright RPh Clinical Pharmacist, Pharmacy Anticoagulation Clinic Pharmacy Anticoagulation Clinic Pager: [phone]. [facility] 10-04-2024 Miscellaneous Notes [facility] Anticoagulation Episode Summary Anticoagulation Care Providers Provider Role Specialty Phone number Juan Willis MD Referring Cardiology [phone] Arsenio Villalobos is a 59 year old year old male patient being evaluated today for a Telemanagement visit. Patient is currently on the following anticoagulant(s) Warfarin. Labs PT INR (no units) Date Value 03/14/2022 1.4 biotel 10/12/2021 2.7 07/30/2021 3.6 biotel INR Home CoaguChek (no units) Date Value 10/02/2024 1.8 09/10/2024 3.2 08/23/2024 3.2 Hemoglobin (g/dL) Date Value 06/12/2022 14.5 10/24/2020 15.2 Hematocrit (%) Date Value 06/12/2022 43.7 10/24/2020 46.6 Platelet Count (k/uL) Date Value 06/12/2022 188 10/24/2020 286 Creatinine (mg/dL) Date Value 06/12/2022 1.05 10/24/2020 1.18 09/22/2020 1.13 09/17/2020 0.94 Bilirubin, Total (mg/dL) Date Value 06/12/2022 0.4 10/24/2020 0.4 ALT (U/L) Date Value 06/12/2022 27 10/24/2020 19 AST (U/L) Date Value 06/12/2022 29 10/24/2020 24 CrCl cannot be calculated (Patient's most recent lab result is older than the maximum 180 days allowed.). ALLERGIES Allergen Reactions Penicillins Unknown childhood Tegaderm Ag Mesh [S* Rash, Swelling Indication for Warfarin: Anticoagulation Episode Summary Current INR goal: 1.5-2.0 Assessment: INR result of 1.8 is therapeutic Plan: Current Warfarin Dosing As of 10/04/2024 Full warfarin instructions: 5 mg every day Sent [employer] message Advised patient to continue current weekly dose as noted above Next INR check due on 10/18/2024 Melany Wright RPh Clinical Pharmacist, Pharmacy Anticoagulation Clinic Pharmacy Anticoagulation Clinic Pager: [phone]. documented in this encounter [facility] 10-03-2024 Telephone encounter Note The following approved medication requests have been transmitted electronically. Requested Prescriptions Signed Prescriptions Disp Refills metoprolol succinate ER (TOPROL XL) 100 mg 90 tablet 3 Sig: TAKE 1 TABLET BY MOUTH EVERY DAY Authorizing Provider: Mary LUNA APRN.LIFT OPERATOR [facility] 10-03-2024 Miscellaneous Notes The following approved medication requests have been transmitted electronically. Requested Prescriptions Signed Prescriptions Disp Refills metoprolol succinate ER (TOPROL XL) 100 mg 90 tablet 3 Sig: TAKE 1 TABLET BY MOUTH EVERY DAY Authorizing Provider: Mary LUNA APRN.LIFT OPERATOR Call from pharmacy requesting refill. Requested Prescriptions Pending Prescriptions Disp Refills metoprolol succinate ER (TOPROL XL) 100 mg [Pharmacy Med Name: Metoprolol Succinate ER Oral Tablet Extended Release 24 Hour 100 MG] 90 tablet 0 Sig: TAKE 1 TABLET BY MOUTH EVERY DAY Patient last seen 09/29/2024. Lacey Cowart Phlebotomy Program Coordinator II September 29, 2024 12:58 PM documented in this encounter [facility] 09-29-2024 Telephone encounter Note Call from pharmacy requesting refill. Requested Prescriptions Pending Prescriptions Disp Refills metoprolol succinate ER (TOPROL XL) 100 mg [Pharmacy Med Name: Metoprolol Succinate ER Oral Tablet Extended Release 24 Hour 100 MG] 90 tablet 0 Sig: TAKE 1 TABLET BY MOUTH EVERY DAY Patient last seen 09/29/2024. Lacey Cowart Phlebotomy Program Coordinator II September 29, 2024 12:58 PM [facility] 09-29-2024 Note HNO ID: [id number] Author: Mary LUNA APRN.JENNIE Service: ? Author Type: Nurse Practitioner Type: Progress Notes Filed: 09/29/2024 11:20 Note Text: [facility] [place] Trevor Velazquez Department of Cardiovascular Medicine SECTION OF CLINICAL CARDIOLOGY OUTPATIENT VISIT DATE September 29, 2024 OUTPATIENT VISIT TYPE ESTABLISHED PRIMARY CARE PHYSICIAN: Gilbert Vanegas (Faustina) [address] [place] [address] REFERRING PHYSICIAN: Kaleb Eduardo [address] [facility] [id number] CHIEF COMPLAINT: Cardiology Follow Up HISTORY OF PRESENT ILLNESS: Mr. Villalobos is a 59-year-old male with a history of bicuspid aortic valve and severe aortic stenosis, status post AVR with mechanical On-X valve in 08/2020, and hypertension, presenting for an annual follow-up. He reports feeling well from a cardiac standpoint. He denies experiencing any chest pain. He notes occasional dyspnea on exertion, such as when climbing stairs, which he attributes to insufficient cardiovascular exercise and age. He emphasizes that this dyspnea is significantly less severe than prior to his surgery. He also reports intermittent palpitations, described as skipping a beat, which he notices more frequently when dehydrated. He denies experiencing these palpitations multiple times daily. He denies any episodes of hypotension and monitors his blood pressure regularly, noting consistent readings around 120/80 mmHg. He denies any issues with bleeding or lower extremity edema. He mentions that his INR levels fluctuate, occasionally reaching values in the 3s, and attributes this variability to dietary changes, specifically a decrease in green vegetable intake. He denies any bleeding complications. He is on Wegovy for weight loss and reports that his weight has stabilized. He expresses a strong preference to continue Wegovy, citing its benefits in reducing noise and improving his overall well-being. PAST MEDICAL HISTORY Diagnosis Date Allergic rhinitis, cause unspecified Aortic valve stenosis Dysphagia 02/06/2015 Hiatal hernia 02/06/2015 HTN (hypertension) Other specified disorder of gallbladder Reflux esophagitis 02/06/2015 PAST SURGICAL HISTORY Procedure Laterality Date COLONOSCOPY FLX DX W/COLLJ SPEC WHEN PFRMD 11/11/2012 Colonoscopy inpt [facility] ESOPHAGOGASTRODUODENOSCOPY TRANSORAL DIAGNOSTIC 11/11/2012 EGD inpt [facility] H-pylori negative GASTROESOPHAG REFLX TEST W/TELEMTRY PH ELTRD 02/06/2015 LAPS SURG CHOLECYSTECTOMY W/CHOLANGIOGRAPHY 10/28/2007 PAST SURGICAL HISTORY OF 04/21/2008 2 cervical disc fusion PAST SURGICAL HISTORY OF Bilateral hand, carpal tunnel PAST SURGICAL HISTORY OF Right shoulder PAST SURGICAL HISTORY OF 09/12/2020 AVR [place] PAST SURGICAL HISTORY OF 03/2020 urolift -prostate PILONIDAL CYST/SINUS EXCISION RDCTJ TORSION TSTIS W/WO FIXJ CLAT TESTIS 14 years old TONSILLECTOMY AND ADENOIDECTOMY VASECTOMY VASECTOMY UNI/BI SPX W/POSTOP SEMEN EXAMS SOCIAL HISTORY Social History Tobacco Use Smoking status: Former Current packs/day: 0.00 Types: Cigarettes Quit date: 12/31/2000 Years since quittin.7 Smokeless tobacco: Former Types: Chew Quit date: 09/11/2020 Vaping Use Vaping status: Never Used Substance Use Topics Alcohol use: Not Currently Comment: a couple of beers a day Drug use: No FAMILY HISTORY Problem Relation Age of Onset Breast Cancer Mother Hypertension Father Alzheimer's Disease Father No Known Problems Maternal Grandmother No Known Problems Maternal Grandfather Parkinson?s Disease Paternal Grandmother No Known Problems Paternal Grandfather Colon Cancer No Family History Patient-Entered Questionnaire Scores 06/16/2023 09/28/2024 Patient Entered Questionnaires Average hours of sleep per day 5 6 Diagnosed with Sleep Apnea No 06/16/2023 Sleep Apnea Probability Score Probability (%) 54 (Recommend sleep study) 06/16/2023 07/31/2023 09/28/2024 Insomnia Severity Index (CURRY) Score 11 (Subthreshold insomnia) 11 (Subthreshold insomnia) 11 (Subthreshold insomnia) 09/04/2020 06/16/2023 09/28/2024 PROMIS Global Health - (T-Scores - the mean of general population = 50. Five points is a clinically meaningful difference.) Physical T-Score 37.4 47.7 47.7 Mental T-Score 38.8 43.5 41.1 ALLERGIES: ALLERGIES Allergen Reactions Penicillins Unknown childhood Tegaderm Ag Mesh [S* Rash, Swelling MEDICATIONS: MULTIVITAMIN ORAL Take by mouth. semaglutide, weight loss, (WEGOVY) 2.4 mg/0.75 mL pen injector Inject 2.4 mg under the skin one time a week. metoprolol succinate ER (TOPROL XL) 100 mg TAKE 1 TABLET BY MOUTH EVERY DAY losartan (COZAAR) 100 mg tablet Take 1 tablet by mouth once daily. tamsulosin (FLOMAX) 0.4 mg Take 0.4 mg by mouth once daily. warfarin (COUMADIN) 5 mg tablet 7.5 mg every Mon, Fri; 5 mg all other days (Patient ras (more content not included)... [facility] 09-29-2024 History of Present illness Narrative Images from the original note were not included. [facility] [place] Trevor Velazquez Department of Cardiovascular Medicine SECTION OF CLINICAL CARDIOLOGY OUTPATIENT VISIT DATE September 29, 2024 OUTPATIENT VISIT TYPE ESTABLISHED PRIMARY CARE PHYSICIAN: Gilbert Vanegas (Faustina) [address] [place] [address] REFERRING PHYSICIAN: Kaleb Eduardo [address] [facility] [id number] CHIEF COMPLAINT: Cardiology Follow Up HISTORY OF PRESENT ILLNESS: Mr. Villalobos is a 59-year-old male with a history of bicuspid aortic valve and severe aortic stenosis, status post AVR with mechanical On-X valve in 08/2020, and hypertension, presenting for an annual follow-up. He reports feeling well from a cardiac standpoint. He denies experiencing any chest pain. He notes occasional dyspnea on exertion, such as when climbing stairs, which he attributes to insufficient cardiovascular exercise and age. He emphasizes that this dyspnea is significantly less severe than prior to his surgery. He also reports intermittent palpitations, described as skipping a beat, which he notices more frequently when dehydrated. He denies experiencing these palpitations multiple times daily. He denies any episodes of hypotension and monitors his blood pressure regularly, noting consistent readings around 120/80 mmHg. He denies any issues with bleeding or lower extremity edema. He mentions that his INR levels fluctuate, occasionally reaching values in the 3s, and attributes this variability to dietary changes, specifically a decrease in green vegetable intake. He denies any bleeding complications. He is on Wegovy for weight loss and reports that his weight has stabilized. He expresses a strong preference to continue Wegovy, citing its benefits in reducing noise and improving his overall well-being. PAST MEDICAL HISTORY Diagnosis Date Allergic rhinitis, cause unspecified Aortic valve stenosis Dysphagia 02/06/2015 Hiatal hernia 02/06/2015 HTN (hypertension) Other specified disorder of gallbladder Reflux esophagitis 02/06/2015 PAST SURGICAL HISTORY Procedure Laterality Date COLONOSCOPY FLX DX W/COLLJ SPEC WHEN PFRMD 11/11/2012 Colonoscopy inpt [facility] ESOPHAGOGASTRODUODENOSCOPY TRANSORAL DIAGNOSTIC 11/11/2012 [facility] H-pylori negative GASTROESOPHAG REFLX TEST W/TELEMTRY PH ELTRD 02/06/2015 LAPS SURG CHOLECYSTECTOMY W/CHOLANGIOGRAPHY 10/28/2007 PAST SURGICAL HISTORY OF 04/21/2008 2 cervical disc fusion PAST SURGICAL HISTORY OF Bilateral hand, carpal tunnel PAST SURGICAL HISTORY OF Right shoulder PAST SURGICAL HISTORY OF 09/12/2020 AVR [place] PAST SURGICAL HISTORY OF 03/2020 urolift -prostate PILONIDAL CYST/SINUS EXCISION RDCTJ TORSION TSTIS W/WO FIXJ CLAT TESTIS 14 years old TONSILLECTOMY & ADENOIDECTOMY <AGE 12 VASECTOMY VASECTOMY UNI/BI SPX W/POSTOP SEMEN EXAMS SOCIAL HISTORY Social History Tobacco Use Smoking status: Former Current packs/day: 0.00 Types: Cigarettes Quit date: 12/31/2000 Years since quittin.7 Smokeless tobacco: Former Types: Chew Quit date: 09/11/2020 Vaping Use Vaping status: Never Used Substance Use Topics Alcohol use: Not Currently Comment: a couple of beers a day Drug use: No FAMILY HISTORY Problem Relation Age of Onset Breast Cancer Mother Hypertension Father Alzheimer's Disease Father No Known Problems Maternal Grandmother No Known Problems Maternal Grandfather Parkinson s Disease Paternal Grandmother No Known Problems Paternal Grandfather Colon Cancer No Family History Patient-Entered Questionnaire Scores 06/16/2023 09/28/2024 Patient Entered Questionnaires Average hours of sleep per day 5 6 Diagnosed with Sleep Apnea No 06/16/2023 Sleep Apnea Probability Score Probability (%) 54 (Recommend sleep study) 06/16/2023 07/31/2023 09/28/2024 Insomnia Severity Index (CURRY) Score 11 (Subthreshold insomnia) 11 (Subthreshold insomnia) 11 (Subthreshold insomnia) 09/04/2020 06/16/2023 09/28/2024 PROMIS Global Health - (T-Scores - the mean of general population = 50. Five points is a clinically meaningful difference.) Physical T-Score 37.4 47.7 47.7 Mental T-Score 38.8 43.5 41.1 ALLERGIES: ALLERGIES Allergen Reactions Penicillins Unknown childhood Tegaderm Ag Mesh [S* Rash, Swelling MEDICATIONS: MULTIVITAMIN ORAL Take by mouth. semaglutide, weight loss, (WEGOVY) 2.4 mg/0.75 mL pen injector Inject 2.4 mg under the skin one time a week. metoprolol succinate ER (TOPROL XL) 100 mg TAKE 1 TABLET BY MOUTH EVERY DAY losartan (COZAAR) 100 mg tablet Take 1 tablet by mouth once daily. tamsulosin (FLOMAX) 0.4 mg Take 0.4 mg by mouth once daily. warfarin (COUMADIN) 5 mg tablet 7.5 mg every Mon, Fri; 5 mg all other days (Patient taking differently: 7.5 mg every Fri, Fri, Friday, 5 mg all other days) pantoprazole DR (PROTONIX) 40 mg tablet Take 1 tablet by mouth as needed. aspirin 81 mg chewable tablet 1 tablet by ORAL/FEEDING TUBE route once daily. buPROPion SR (ZYBAN SR; WELLBUTRIN SR) 150 mg 12 hr tablet Take by mouth once daily. p-ephed hcl/cetirizine hcl(ZYRTEC-D 5 MG-120 MG 12 HR TAB) Take one(1) tablet two(2) times daily. ALBUTEROL 90 MCG/ACTUATION AEROSOL INHALER Inhale one(1) - two(2) puffs four(4) times a day as needed for wheezing and shortness of breath. PHYSICAL EXAMINATION: BP 113/79 (BP Site: Left Arm) Pulse 83 Resp 14 Wt 94.8 kg (209 lb) SpO2 97% BMI 30.86 kg/m General: Well appearing, in no acute distress, speaking in complete sentences. Lungs: Clear to auscultation bilaterally, no wheezing or rhonchi. Heart: Regular rhythm, S1, S2 normal Extremities: No peripheral edema Neuro: Oriented to person, place and time, alert, cooperative, gait coordinated. CARDIOVASCULAR MEDICINE TESTING: Last ECHO Result Conclusion ECHO Collected: 07/16/2023 1:10 PM (Edited Result - FINAL) Impression: CONCLUSIONS: - Exam indication: Hx of AVR (2020) - The left ventricle is normal in size. Left ventricular systolic function is normal. EF = 53 5% (visual est.) - The right ventricle is normal in size. Right ventricular systolic function is normal. - On-X prosthetic aortic valve (size #25). There is trace aortic valve regurgitation. The peak gradient is 9 mmHg, the mean gradient is 4 mmHg and the dimensionless valve index is 0.77. Prior AV gradients were 14//8 mmHg. - Exam was compared with the prior [facility] echocardiographic exam performed on 09/06/2020. Similar findings on direct comparison. * * * Final (Updated) * * * Last EKG Result Conclusion ECG COMPLETE Collected: 09/29/2024 7:59 AM (Preliminary result) Impression: NORMAL SINUS RHYTHM NORMAL ECG IMPRESSION/PLAN: 1. H/O mechanical aortic valve replacement History of bicuspid aortic valve Status post AVR with [place] mechanical valve in August 2020. No current chest pain, occasional dyspnea on exertion, and infrequent palpitations noted, particularly with dehydration. No edema observed. Recent EKG shows normal rhythm. Last echocardiogram in June 2023 demonstrated well-functioning mechanical aortic valve and normal cardiac function. - Ordered echocardiogram for annual surveillance to ensure aortic mechanical valve and cardiac function remain stable. - Monitor INR levels closely; maintain target range of 1.5 to 2. - Continue current management and follow-up in one year with repeat echo, EKG, and lab work. - Patient advised to report any significant changes in symptoms or concerns. Recording using [employer] software for draft documentation of the visit was discussed with the patient/authorized marketing representative; all questions welcomed and answered. Patient/authorized marketing representative agreed to proceed I spent a total of 25 minutes on the date of the service which included preparing to see the patient, [id number] patient care, completing clinical documentation, obtaining and/or reviewing separately obtained history, performing a medically appropriate examination, counseling and educating the patient/family/caregiver, ordering medications, tests, or procedures, independently interpreting results (not separately reported), communicating results to the patient/family/caregiver, and care coordination (not separately reported). Lora Luna APRN.JENNIE documented in this encounter [facility] 08-23-2024 Telephone encounter Note [facility] Anticoagulation Clinic Anticoagulation Episode Summary Anticoagulation Care Providers Provider Role Specialty Phone number Juan Willis MD Referring Cardiology [phone] Arsenio Villalobos is a 59 year old year old male patient being evaluated today for a Telemanagement visit. Patient is currently on the following anticoagulant(s) Warfarin. Labs PT INR (no units) Date Value 03/14/2022 1.4 biotel 10/12/2021 2.7 07/30/2021 3.6 biotel INR Home CoaguChek (no units) Date Value 08/23/2024 3.2 07/29/2024 2.7 07/09/2024 2.2 CrCl cannot be calculated (Patient's most recent lab result is older than the maximum 180 days allowed.). ALLERGIES Allergen Reactions Penicillins Unknown childhood Tegaderm Ag Mesh [S* Rash, Swelling Indication for Warfarin: Anticoagulation Episode Summary Current INR goal: 1.5-2.0 Assessment: INR result of 3.2 is SUPRAtherapeutic due to: Alcohol consumption (while traveling out of country). Plan: Current Warfarin Dosing As of 08/23/2024 Full warfarin instructions: 5: 2.5 mg; Otherwise 7.5 mg every Fri; 5 mg all other days Called and spoke to patient/caregiver Advised patient to decrease dose for 1 day only then resume weekly regimen Next INR check due on 09/06/2024 Patient verbalizes understanding of the plan. Melany Wright RPh Clinical Pharmacist, Pharmacy Anticoagulation Clinic Pharmacy Anticoagulation Clinic Pager: [phone]. [facility] 08-23-2024 Miscellaneous Notes [facility] Pharmacy Anticoagulation Clinic Anticoagulation Episode Summary Anticoagulation Care Providers Provider Role Specialty Phone number Juan Willis MD Referring Cardiology [phone] Arsenio Villalobos is a 59 year old year old male patient being evaluated today for a Telemanagement visit. Patient is currently on the following anticoagulant(s) Warfarin. Labs PT INR (no units) Date Value 03/14/2022 1.4 biotel 10/12/2021 2.7 07/30/2021 3.6 biotel INR Home CoaguChek (no units) Date Value 08/23/2024 3.2 07/29/2024 2.7 07/09/2024 2.2 CrCl cannot be calculated (Patient's most recent lab result is older than the maximum 180 days allowed.). ALLERGIES Allergen Reactions Penicillins Unknown childhood Tegaderm Ag Mesh [S* Rash, Swelling Indication for Warfarin: Anticoagulation Episode Summary Current INR goal: 1.5-2.0 Assessment: INR result of 3.2 is SUPRAtherapeutic due to: Alcohol consumption (while traveling out of country). Plan: Current Warfarin Dosing As of 08/23/2024 Full warfarin instructions: 5/5: 2.5 mg; Otherwise 7.5 mg every Fri; 5 mg all other days Called and spoke to patient/caregiver Advised patient to decrease dose for 1 day only then resume weekly regimen Next INR check due on 09/06/2024 Patient verbalizes understanding of the plan. Melany Wright RPh Clinical Pharmacist, Pharmacy Anticoagulation Clinic Pharmacy Anticoagulation Clinic Pager: [phone]. documented in this encounter [facility] 08-17-2024 Telephone encounter Note Pharmacist Managed Refill Encounter Name: Arsenio Villalobos Refill authorization request(s) received and reviewed under effective consult agreement. The patient consented to the pharmacy service and agreed to allow medications to be collaboratively managed by the pharmacist. The patient may decline or cancel the agreement at any time. Upon review, it was confirmed that an active patient-provider relationship exists, and the prescriber is a participating physician under the consult agreement. Last office visit in this department: 06/17/2023 Kaleb Eduardo MD Last [facility] visit in this department: 08/01/2023 Kaleb Eduardo MD Next appointment in this department: 09/29/2024 Mary Luna, ISABELLE.LIFT OPERATOR Requested Prescriptions Signed Prescriptions Disp Refills semaglutide, weight loss, (WEGOVY) 2.4 mg/0.75 mL pen injector 3 mL 2 Sig: Inject 2.4 mg under the skin one time a week. Authorizing Provider: KALEB EDUARDO Ordering User: SHERLY CABA The medication(s) fall under category 2: Medications qualify for limited renewal: Due for follow up appointment, but not > 13 months since last # of refills approved in this encounter: 1 Sherly Caba RPh [facility] 08-17-2024 Miscellaneous Notes Pharmacist Managed Refill Encounter Name: Arsenio Villalobos Refill authorization request(s) received and reviewed under effective consult agreement. The patient consented to the pharmacy service and agreed to allow medications to be collaboratively managed by the pharmacist. The patient may decline or cancel the agreement at any time. Upon review, it was confirmed that an active patient-provider relationship exists, and the prescriber is a participating physician under the consult agreement. Last office visit in this department: 06/17/2023 Kaleb Eduardo MD Last [facility] visit in this department: 08/01/2023 Kaleb Eduardo MD Next appointment in this department: 09/29/2024 Mary Luna APRN.LIFT OPERATOR Requested Prescriptions Signed Prescriptions Disp Refills semaglutide, weight loss, (WEGOVY) 2.4 mg/0.75 mL pen injector 3 mL 2 Sig: Inject 2.4 mg under the skin one time a week. Authorizing Provider: KALEB EDUARDO Ordering User: SHERLY CABA The medication(s) fall under category 2: Medications qualify for limited renewal: Due for follow up appointment, but not > 13 months since last # of refills approved in this encounter: 1 Sherly Caba RPh documented in this encounter [facility] 07-29-2024 Telephone encounter Note [facility] Anticoagulation Clinic Anticoagulation Episode Summary Anticoagulation Care Providers Provider Role Specialty Phone number Juan Willis MD Referring Cardiology [phone] Arsenio Villalobos is a 58 year old year old male patient being evaluated today for a Telemanagement visit. Patient is currently on the following anticoagulant(s) Warfarin. Labs PT INR (no units) Date Value 03/14/2022 1.4 biotel 10/12/2021 2.7 07/30/2021 3.6 biotel INR Home CoaguChek (no units) Date Value 07/29/2024 2.7 07/09/2024 2.2 06/18/2024 2.0 Hemoglobin (g/dL) Date Value 06/12/2022 14.5 10/24/2020 15.2 Hematocrit (%) Date Value 06/12/2022 43.7 10/24/2020 46.6 Platelet Count (k/uL) Date Value 06/12/2022 188 10/24/2020 286 Creatinine (mg/dL) Date Value 06/12/2022 1.05 10/24/2020 1.18 09/22/2020 1.13 09/17/2020 0.94 Bilirubin, Total (mg/dL) Date Value 06/12/2022 0.4 10/24/2020 0.4 ALT (U/L) Date Value 06/12/2022 27 10/24/2020 19 AST (U/L) Date Value 06/12/2022 29 10/24/2020 24 CrCl cannot be calculated (Patient's most recent lab result is older than the maximum 180 days allowed.). 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 Patient denies need for refills. Patient advised to call the PAC with any medication changes, bleeding/bruising concerns, recent changes in vitamin k consumption, if any procedures are coming up, if they have been ill or in the hospital, and if they have missed any doses of warfarin. Lydia Hanley RPh Clinical Pharmacist, Pharmacy Anticoagulation Clinic Pharmacy Anticoagulation Clinic Pager: [phone]. [facility] 07-29-2024 Miscellaneous Notes [facility] Anticoagulation Clinic Anticoagulation Episode Summary Anticoagulation Care Providers Provider Role Specialty Phone number Juan Willis MD Referring Cardiology [phone] Arsenio Villalobos is a 58 year old year old male patient being evaluated today for a Telemanagement visit. Patient is currently on the following anticoagulant(s) Warfarin. Labs PT INR (no units) Date Value 03/14/2022 1.4 biotel 10/12/2021 2.7 07/30/2021 3.6 biotel INR Home CoaguChek (no units) Date Value 07/29/2024 2.7 07/09/2024 2.2 06/18/2024 2.0 Hemoglobin (g/dL) Date Value 06/12/2022 14.5 10/24/2020 15.2 Hematocrit (%) Date Value 06/12/2022 43.7 10/24/2020 46.6 Platelet Count (k/uL) Date Value 06/12/2022 188 10/24/2020 286 Creatinine (mg/dL) Date Value 06/12/2022 1.05 10/24/2020 1.18 09/22/2020 1.13 09/17/2020 0.94 Bilirubin, Total (mg/dL) Date Value 06/12/2022 0.4 10/24/2020 0.4 ALT (U/L) Date Value 06/12/2022 27 10/24/2020 19 AST (U/L) Date Value 06/12/2022 29 10/24/2020 24 CrCl cannot be calculated (Patient's most recent lab result is older than the maximum 180 days allowed.). ALLERGIES Allergen Reactions Penicillins Unknown childhood Tegaderm Ag Mesh [S* Rash, Swelling Indication for Warfarin: detention current use of anticoagulant H/o mechanical aortic valve replacement Anticoagulation Episode Summary Current INR goal: 1.5-2.0 Assessment: INR result of 2.7 is SUPRAtherapeutic due to: Decreased vitamin k intake Plan: Current Warfarin Dosing As of 07/29/2024 Full warfarin instructions: 07/30: 5 mg; Otherwise 7.5 mg every Fri; 5 mg all other days Called and spoke to patient/caregiver Advised patient to decrease dose for 1 day only then resume weekly regimen Next home INR check scheduled on 08/12/2024 Patient verbalizes understanding of the plan. Patient denies need for refills. Patient advised to call the PAC with any medication changes, bleeding/bruising concerns, recent changes in vitamin k consumption, if any procedures are coming up, if they have been ill or in the hospital, and if they have missed any doses of warfarin. Lydia Hanley RPh Clinical Pharmacist, Pharmacy Anticoagulation Clinic Pharmacy Anticoagulation Clinic Pager: [phone]. documented in this encounter [facility] 07-09-2024 Telephone encounter Note [facility] Anticoagulation Clinic Anticoagulation Episode Summary Anticoagulation Care Providers Provider Role Specialty Phone number Juan Willis MD Referring Cardiology [phone] Arsenio Villalobos is a 58 year old year old male patient being evaluated today for a Telemanagement visit. Patient is currently on the following anticoagulant(s) Warfarin. Labs PT INR (no units) Date Value 03/14/2022 1.4 biotel 10/12/2021 2.7 07/30/2021 3.6 biotel INR Home CoaguChek (no units) Date Value 07/09/2024 2.2 06/18/2024 2.0 05/30/2024 2.1 Hemoglobin (g/dL) Date Value 06/12/2022 14.5 10/24/2020 15.2 Hematocrit (%) Date Value 06/12/2022 43.7 10/24/2020 46.6 Platelet Count (k/uL) Date Value 06/12/2022 188 10/24/2020 286 Creatinine (mg/dL) Date Value 06/12/2022 1.05 10/24/2020 1.18 09/22/2020 1.13 09/17/2020 0.94 Bilirubin, Total (mg/dL) Date Value 06/12/2022 0.4 10/24/2020 0.4 ALT (U/L) Date Value 06/12/2022 27 10/24/2020 19 AST (U/L) Date Value 06/12/2022 29 10/24/2020 24 CrCl cannot be calculated (Patient's most recent lab result is older than the maximum 180 days allowed.). ALLERGIES Allergen Reactions Penicillins Unknown childhood Tegaderm Ag Mesh [S* Rash, Swelling Indication for Warfarin: Anticoagulation Episode Summary Current INR goal: 1.5-2.0 Assessment: INR result of 2.2 is SUPRAtherapeutic due to: unknown cause - did not speak to patient Plan: Current Warfarin Dosing As of 07/09/2024 Full warfarin instructions: 07/09: 5 mg; Otherwise 7.5 mg every Fri; 5 mg all other days Left voice message Advised patient to decrease dose for 1 day only then resume weekly regimen Next home INR check scheduled on 07/23/2024 Patient advised to call the PAC with any medication changes, bleeding/bruising concerns, recent changes in vitamin k consumption, if any procedures are coming up, if they have been ill or in the hospital, and if they have missed any doses of warfarin. Lucita Alba RPh Clinical Pharmacist, Pharmacy Anticoagulation Clinic Pharmacy Anticoagulation Clinic Pager: [phone]. [facility] 07-09-2024 Miscellaneous Notes [facility] Anticoagulation Clinic Anticoagulation Episode Summary Anticoagulation Care Providers Provider Role Specialty Phone number Juan Willis MD Referring Cardiology [phone] Arsenio Villalobos is a 58 year old year old male patient being evaluated today for a Telemanagement visit. Patient is currently on the following anticoagulant(s) Warfarin. Labs PT INR (no units) Date Value 03/14/2022 1.4 biotel 10/12/2021 2.7 07/30/2021 3.6 biotel INR Home CoaguChek (no units) Date Value 07/09/2024 2.2 06/18/2024 2.0 05/30/2024 2.1 Hemoglobin (g/dL) Date Value 06/12/2022 14.5 10/24/2020 15.2 Hematocrit (%) Date Value 06/12/2022 43.7 10/24/2020 46.6 Platelet Count (k/uL) Date Value 06/12/2022 188 10/24/2020 286 Creatinine (mg/dL) Date Value 06/12/2022 1.05 10/24/2020 1.18 09/22/2020 1.13 09/17/2020 0.94 Bilirubin, Total (mg/dL) Date Value 06/12/2022 0.4 10/24/2020 0.4 ALT (U/L) Date Value 06/12/2022 27 10/24/2020 19 AST (U/L) Date Value 06/12/2022 29 10/24/2020 24 CrCl cannot be calculated (Patient's most recent lab result is older than the maximum 180 days allowed.). ALLERGIES Allergen Reactions Penicillins Unknown childhood Tegaderm Ag Mesh [S* Rash, Swelling Indication for Warfarin: Anticoagulation Episode Summary Current INR goal: 1.5-2.0 Assessment: INR result of 2.2 is SUPRAtherapeutic due to: unknown cause - did not speak to patient Plan: Current Warfarin Dosing As of 07/09/2024 Full warfarin instructions: 07/09: 5 mg; Otherwise 7.5 mg every Fri; 5 mg all other days Left voice message Advised patient to decrease dose for 1 day only then resume weekly regimen Next home INR check scheduled on 07/23/2024 Patient advised to call the PAC with any medication changes, bleeding/bruising concerns, recent changes in vitamin k consumption, if any procedures are coming up, if they have been ill or in the hospital, and if they have missed any doses of warfarin. Lucita Dayanna Alba Clinical Pharmacist, Pharmacy Anticoagulation Clinic Pharmacy Anticoagulation Clinic Pager: [phone]. documented in this encounter [facility] 07-05-2024 Telephone encounter Note Call from patient requesting refill. Requested Prescriptions Pending Prescriptions Disp Refills metoprolol succinate ER (TOPROL XL) 100 mg [Pharmacy Med Name: Metoprolol Succinate ER Oral Tablet Extended Release 24 Hour 100 MG] 90 tablet 0 Sig: TAKE 1 TABLET BY MOUTH EVERY DAY Patient last seen 08/01/23 Patient appointment 09/29/24 with Lora Guzman [facility] 07-05-2024 Miscellaneous Notes Call from patient requesting refill. Requested Prescriptions Pending Prescriptions Disp Refills metoprolol succinate ER (TOPROL XL) 100 mg [Pharmacy Med Name: Metoprolol Succinate ER Oral Tablet Extended Release 24 Hour 100 MG] 90 tablet 0 Sig: TAKE 1 TABLET BY MOUTH EVERY DAY Patient last seen 08/01/23 Patient appointment 09/29/24 with Lora Guzman documented in this encounter [facility] 06-18-2024 Telephone encounter Note [facility] Anticoagulation Clinic Anticoagulation Episode Summary Anticoagulation Care Providers Provider Role Specialty Phone number Juan Willis MD Referring Cardiology [phone] Arsenio Villalobos is a 58 year old year old male patient being evaluated today for a Telemanagement visit. Patient is currently on the following anticoagulant(s) Warfarin. Labs PT INR (no units) Date Value 03/14/2022 1.4 biotel 10/12/2021 2.7 07/30/2021 3.6 biotel INR Home CoaguChek (no units) Date Value 06/18/2024 2.0 05/30/2024 2.1 05/10/2024 2.7 Hemoglobin (g/dL) Date Value 06/12/2022 14.5 10/24/2020 15.2 Hematocrit (%) Date Value 06/12/2022 43.7 10/24/2020 46.6 Platelet Count (k/uL) Date Value 06/12/2022 188 10/24/2020 286 Creatinine (mg/dL) Date Value 06/12/2022 1.05 10/24/2020 1.18 09/22/2020 1.13 09/17/2020 0.94 Bilirubin, Total (mg/dL) Date Value 06/12/2022 0.4 10/24/2020 0.4 ALT (U/L) Date Value 06/12/2022 27 10/24/2020 19 AST (U/L) Date Value 06/12/2022 29 10/24/2020 24 CrCl cannot be calculated (Patient's most recent lab result is older than the maximum 180 days allowed.). ALLERGIES Allergen Reactions Penicillins Unknown childhood Tegaderm Ag Mesh [S* Rash, Swelling Indication for Warfarin: Anticoagulation Episode Summary Current INR goal: 1.5-2.0 Assessment: INR result of 2.0 is therapeutic Plan: Current Warfarin Dosing As of 06/18/2024 Full warfarin instructions: 7.5 mg every Fri; 5 mg all other days Sent [employer] message Advised patient to continue current weekly dose as noted above Next home INR check scheduled on 07/02/2024 Patient advised to call the PAC with any medication changes, bleeding/bruising concerns, recent changes in vitamin k consumption, if any procedures are coming up, if they have been ill or in the hospital, and if they have missed any doses of warfarin. Lucita Alba RPh Clinical Pharmacist, Pharmacy Anticoagulation Clinic Pharmacy Anticoagulation Clinic Pager: [phone]. [facility] 06-18-2024 Miscellaneous Notes [facility] Anticoagulation Clinic Anticoagulation Episode Summary Anticoagulation Care Providers Provider Role Specialty Phone number Juan Willis MD Referring Cardiology [phone] Arsenio Villalobos is a 58 year old year old male patient being evaluated today for a Telemanagement visit. Patient is currently on the following anticoagulant(s) Warfarin. Labs PT INR (no units) Date Value 03/14/2022 1.4 biotel 10/12/2021 2.7 07/30/2021 3.6 biotel INR Home CoaguChek (no units) Date Value 06/18/2024 2.0 05/30/2024 2.1 05/10/2024 2.7 Hemoglobin (g/dL) Date Value 06/12/2022 14.5 10/24/2020 15.2 Hematocrit (%) Date Value 06/12/2022 43.7 10/24/2020 46.6 Platelet Count (k/uL) Date Value 06/12/2022 188 10/24/2020 286 Creatinine (mg/dL) Date Value 06/12/2022 1.05 10/24/2020 1.18 09/22/2020 1.13 09/17/2020 0.94 Bilirubin, Total (mg/dL) Date Value 06/12/2022 0.4 10/24/2020 0.4 ALT (U/L) Date Value 06/12/2022 27 10/24/2020 19 AST (U/L) Date Value 06/12/2022 29 10/24/2020 24 CrCl cannot be calculated (Patient's most recent lab result is older than the maximum 180 days allowed.). ALLERGIES Allergen Reactions Penicillins Unknown childhood Tegaderm Ag Mesh [S* Rash, Swelling Indication for Warfarin: Anticoagulation Episode Summary Current INR goal: 1.5-2.0 Assessment: INR result of 2.0 is therapeutic Plan: Current Warfarin Dosing As of 06/18/2024 Full warfarin instructions: 7.5 mg every Fri; 5 mg all other days Sent [employer] message Advised patient to continue current weekly dose as noted above Next home INR check scheduled on 07/02/2024 Patient advised to call the PAC with any medication changes, bleeding/bruising concerns, recent changes in vitamin k consumption, if any procedures are coming up, if they have been ill or in the hospital, and if they have missed any doses of warfarin. Lucita Alba RPh Clinical Pharmacist, Pharmacy Anticoagulation Clinic Pharmacy Anticoagulation Clinic Pager: [phone]. documented in this encounter [facility] 06-16-2024 Telephone encounter Note Call from patient requesting refill. Requested Prescriptions Pending Prescriptions Disp Refills losartan (COZAAR) 100 mg tablet [Pharmacy Med Name: Losartan Potassium Oral Tablet 100 MG] 90 tablet 0 Sig: TAKE 1 TABLET BY MOUTH EVERY DAY I did send a mychart message stating he needed to make an appointment Patient last seen 08/01/23 Aleida Guzman [facility] 06-16-2024 Miscellaneous Notes Call from patient requesting refill. Requested Prescriptions Pending Prescriptions Disp Refills losartan (COZAAR) 100 mg tablet [Pharmacy Med Name: Losartan Potassium Oral Tablet 100 MG] 90 tablet 0 Sig: TAKE 1 TABLET BY MOUTH EVERY DAY I did send a mychart message stating he needed to make an appointment Patient last seen 08/01/23 Aleida Guzman documented in this encounter [facility] 05-31-2024 Telephone encounter Note [facility] Anticoagulation Clinic Anticoagulation Episode Summary Anticoagulation Care Providers Provider Role Specialty Phone number Juan Willis MD Referring Cardiology [phone] Arsenio Villalobos is a 58 year old year old male patient being evaluated today for a Telemanagement visit. Patient is currently on the following anticoagulant(s) Warfarin. Labs PT INR (no units) Date Value 03/14/2022 1.4 biotel 10/12/2021 2.7 07/30/2021 3.6 biotel INR Home CoaguChek (no units) Date Value 05/30/2024 2.1 05/10/2024 2.7 04/18/2024 2.2 Hemoglobin (g/dL) Date Value 06/12/2022 14.5 10/24/2020 15.2 Hematocrit (%) Date Value 06/12/2022 43.7 10/24/2020 46.6 Platelet Count (k/uL) Date Value 06/12/2022 188 10/24/2020 286 Creatinine (mg/dL) Date Value 06/12/2022 1.05 10/24/2020 1.18 09/22/2020 1.13 09/17/2020 0.94 Bilirubin, Total (mg/dL) Date Value 06/12/2022 0.4 10/24/2020 0.4 ALT (U/L) Date Value 06/12/2022 27 10/24/2020 19 AST (U/L) Date Value 06/12/2022 29 10/24/2020 24 CrCl cannot be calculated (Patient's most recent lab result is older than the maximum 180 days allowed.). ALLERGIES Allergen Reactions Penicillins Unknown childhood Tegaderm Ag Mesh [S* Rash, Swelling Indication for Warfarin: Anticoagulation Episode Summary Current INR goal: 1.5-2.0 Assessment: INR result of 2.1 is SUPRAtherapeutic due to: unknown cause - did not speak to patient Plan: Current Warfarin Dosing As of 05/31/2024 Full warfarin instructions: 7.5 mg every Fri; 5 mg all other days Sent [employer] message Advised patient to continue current weekly dose as noted above Next INR check due on 06/14/2024 Melany Wright RPh Clinical Pharmacist, Pharmacy Anticoagulation Clinic Pharmacy Anticoagulation Clinic Pager: [phone]. [facility] 05-31-2024 Miscellaneous Notes [facility] Anticoagulation Clinic Anticoagulation Episode Summary Anticoagulation Care Providers Provider Role Specialty Phone number Juan Willis MD Referring Cardiology [phone] Arsenio Villalobos is a 58 year old year old male patient being evaluated today for a Telemanagement visit. Patient is currently on the following anticoagulant(s) Warfarin. Labs PT INR (no units) Date Value 03/14/2022 1.4 biotel 10/12/2021 2.7 07/30/2021 3.6 biotel INR Home CoaguChek (no units) Date Value 05/30/2024 2.1 05/10/2024 2.7 04/18/2024 2.2 Hemoglobin (g/dL) Date Value 06/12/2022 14.5 10/24/2020 15.2 Hematocrit (%) Date Value 06/12/2022 43.7 10/24/2020 46.6 Platelet Count (k/uL) Date Value 06/12/2022 188 10/24/2020 286 Creatinine (mg/dL) Date Value 06/12/2022 1.05 10/24/2020 1.18 09/22/2020 1.13 09/17/2020 0.94 Bilirubin, Total (mg/dL) Date Value 06/12/2022 0.4 10/24/2020 0.4 ALT (U/L) Date Value 06/12/2022 27 10/24/2020 19 AST (U/L) Date Value 06/12/2022 29 10/24/2020 24 CrCl cannot be calculated (Patient's most recent lab result is older than the maximum 180 days allowed.). ALLERGIES Allergen Reactions Penicillins Unknown childhood Tegaderm Ag Mesh [S* Rash, Swelling Indication for Warfarin: Anticoagulation Episode Summary Current INR goal: 1.5-2.0 Assessment: INR result of 2.1 is SUPRAtherapeutic due to: unknown cause - did not speak to patient Plan: Current Warfarin Dosing As of 05/31/2024 Full warfarin instructions: 7.5 mg every Fri; 5 mg all other days Sent [employer] message Advised patient to continue current weekly dose as noted above Next INR check due on 06/14/2024 Melany Wright RPh Clinical Pharmacist, Pharmacy Anticoagulation Clinic Pharmacy Anticoagulation Clinic Pager: [phone]. documented in this encounter [facility] 05-10-2024 Telephone encounter Note [facility] Anticoagulation Clinic Anticoagulation Episode Summary Anticoagulation Care Providers Provider Role Specialty Phone number Juan Willis MD Referring Cardiology [phone] Arsenio Villalobos is a 58 year old year old male patient being evaluated today for a Telemanagement visit. Patient is currently on the following anticoagulant(s) Warfarin. Labs PT INR (no units) Date Value 03/14/2022 1.4 biotel 10/12/2021 2.7 07/30/2021 3.6 biotel INR Home CoaguChek (no units) Date Value 05/10/2024 2.7 04/18/2024 2.2 04/01/2024 2.4 CrCl cannot be calculated (Patient's most recent lab result is older than the maximum 180 days allowed.). ALLERGIES Allergen Reactions Penicillins Unknown childhood Tegaderm Ag Mesh [S* Rash, Swelling Indication for Warfarin: Anticoagulation Episode Summary Current INR goal: 1.5-2.0 Assessment: INR result of 2.7 is SUPRAtherapeutic due to: unknown cause - did not speak to patient Plan: Current Warfarin Dosing As of 05/10/2024 Full warfarin instructions: 7.5 mg every Fri; 5 mg all other days Left voice message Advised patient to decrease total weekly regimen Next INR check due on 05/24/2024 Patient instructed to call [facility] at [phone] with any questions or concerns. Melany Wright RPh Clinical Pharmacist, [facility] Pager: [phone] [facility] 05-10-2024 Miscellaneous Notes [facility] Anticoagulation Episode Summary Anticoagulation Care Providers Provider Role Specialty Phone number Juan Willis MD Referring Cardiology [phone] Arsenio Villalobos is a 58 year old year old male patient being evaluated today for a Telemanagement visit. Patient is currently on the following anticoagulant(s) Warfarin. Labs PT INR (no units) Date Value 03/14/2022 1.4 biotel 10/12/2021 2.7 07/30/2021 3.6 biotel INR Home CoaguChek (no units) Date Value 05/10/2024 2.7 04/18/2024 2.2 04/01/2024 2.4 CrCl cannot be calculated (Patient's most recent lab result is older than the maximum 180 days allowed.). ALLERGIES Allergen Reactions Penicillins Unknown childhood Tegaderm Ag Mesh [S* Rash, Swelling Indication for Warfarin: Anticoagulation Episode Summary Current INR goal: 1.5-2.0 Assessment: INR result of 2.7 is SUPRAtherapeutic due to: unknown cause - did not speak to patient Plan: Current Warfarin Dosing As of 05/10/2024 Full warfarin instructions: 7.5 mg every Fri; 5 mg all other days Left voice message Advised patient to decrease total weekly regimen Next INR check due on 05/24/2024 Patient instructed to call [facility] at [phone] with any questions or concerns. Melany Wright RPh Clinical Pharmacist, [facility] Pager: [phone] documented in this encounter [facility] 04-30-2024 Telephone encounter Note Pharmacist Managed Refill Encounter Name: Arsenio Villalobos Refill authorization request(s) received and reviewed under effective consult agreement. The patient consented to the pharmacy service and agreed to allow medications to be collaboratively managed by the pharmacist. The patient may decline or cancel the agreement at any time. Upon review, it was confirmed that an active patient-provider relationship exists, and the prescriber is a participating physician under the consult agreement. Last office visit in this department: 06/17/2023 Kaleb Eduardo MD Last distance health visit in this department: 08/01/2023 Kaleb Eduardo MD Next appointment in this department: Visit date not found Requested Prescriptions Pending Prescriptions Disp Refills semaglutide, weight loss, (WEGOVY) 2.4 mg/0.75 mL pen injector 3 mL 2 Sig: Inject 2.4 mg under the skin one time a week. The medication(s) fall under category 3: Medications fail to meet 1 or more criteria (condition or diagnosis excluded from collaborative practice agreement) necessary for pharmacist approval, routed to provider for review. # of refills routed in this encounter: 1 # of refills approved in this encounter: 0 Denzel Barillas RPh [facility] 04-30-2024 Miscellaneous Notes Pharmacist Managed Refill Encounter Name: Arsenio Villalobos Refill authorization request(s) received and reviewed under effective consult agreement. The patient consented to the pharmacy service and agreed to allow medications to be collaboratively managed by the pharmacist. The patient may decline or cancel the agreement at any time. Upon review, it was confirmed that an active patient-provider relationship exists, and the prescriber is a participating physician under the consult agreement. Last office visit in this department: 06/17/2023 Kaleb Eduardo MD Last [facility] visit in this department: 08/01/2023 Kaleb Eduardo MD Next appointment in this department: Visit date not found Requested Prescriptions Pending Prescriptions Disp Refills semaglutide, weight loss, (WEGOVY) 2.4 mg/0.75 mL pen injector 3 mL 2 Sig: Inject 2.4 mg under the skin one time a week. The medication(s) fall under category 3: Medications fail to meet 1 or more criteria (condition or diagnosis excluded from collaborative practice agreement) necessary for pharmacist approval, routed to provider for review. # of refills routed in this encounter: 1 # of refills approved in this encounter: 0 Denzel Barillas RPh documented in this encounter [facility] 04-19-2024 Telephone encounter Note [facility] Anticoagulation Episode Summary Anticoagulation Care Providers Provider Role Specialty Phone number Juan Willis MD Referring Cardiology [phone] Arsenio Villalobos is a 58 year old year old male patient being evaluated today for a Telemanagement visit. Patient is currently on the following anticoagulant(s) Warfarin. Labs PT INR (no units) Date Value 03/14/2022 1.4 biotel 10/12/2021 2.7 07/30/2021 3.6 biotel INR Home CoaguChek (no units) Date Value 04/18/2024 2.2 04/01/2024 2.4 03/11/2024 2.1 CrCl cannot be calculated (Patient's most recent lab result is older than the maximum 180 days allowed.). ALLERGIES Allergen Reactions Penicillins Unknown childhood Tegaderm Ag Mesh [S* Rash, Swelling Indication for Warfarin: Anticoagulation Episode Summary Current INR goal: 1.5-2.0 Assessment: INR result of 2.2 is SUPRAtherapeutic due to: unknown cause - did not speak to patient Plan: Current Warfarin Dosing As of 04/19/2024 Full warfarin instructions: 04/19: 5 mg; Otherwise 7.5 mg every Mon, Fri; 5 mg all other days Left voice message Advised patient to decrease dose for 1 day only then resume weekly regimen Next INR check due on 05/03/2024 Patient instructed to call [facility] at [phone] with any questions or concerns. Melany Wright RPh Clinical Pharmacist, [facility] Pager: [phone] [facility] 04-19-2024 Miscellaneous Notes [facility] Anticoagulation Episode Summary Anticoagulation Care Providers Provider Role Specialty Phone number Juan Willis MD Referring Cardiology [phone] Arsenio Villalobos is a 58 year old year old male patient being evaluated today for a Telemanagement visit. Patient is currently on the following anticoagulant(s) Warfarin. Labs PT INR (no units) Date Value 03/14/2022 1.4 biotel 10/12/2021 2.7 07/30/2021 3.6 biotel INR Home CoaguChek (no units) Date Value 04/18/2024 2.2 04/01/2024 2.4 03/11/2024 2.1 CrCl cannot be calculated (Patient's most recent lab result is older than the maximum 180 days allowed.). ALLERGIES Allergen Reactions Penicillins Unknown childhood Tegaderm Ag Mesh [S* Rash, Swelling Indication for Warfarin: Anticoagulation Episode Summary Current INR goal: 1.5-2.0 Assessment: INR result of 2.2 is SUPRAtherapeutic due to: unknown cause - did not speak to patient Plan: Current Warfarin Dosing As of 04/19/2024 Full warfarin instructions: 04/19: 5 mg; Otherwise 7.5 mg every Mon, Fri; 5 mg all other days Left voice message Advised patient to decrease dose for 1 day only then resume weekly regimen Next INR check due on 05/03/2024 Patient instructed to call [facility] at [phone] with any questions or concerns. Melany Wright RPh Clinical Pharmacist, [facility] Pager: [phone] documented in this encounter [facility] 04-02-2024 Telephone encounter Note [facility] Anticoagulation Episode Summary Anticoagulation Care Providers Provider Role Specialty Phone number Juan Willis MD Referring Cardiology [phone] Arsenio Villalobos is a 58 year old year old male patient being evaluated today for a Telemanagement visit. Patient is currently on the following anticoagulant(s) Warfarin. Labs PT INR (no units) Date Value 03/14/2022 1.4 biotel 10/12/2021 2.7 07/30/2021 3.6 biotel INR Home CoaguChek (no units) Date Value 04/01/2024 2.4 03/11/2024 2.1 02/20/2024 1.6 Hemoglobin (g/dL) Date Value 06/12/2022 14.5 10/24/2020 15.2 Hematocrit (%) Date Value 06/12/2022 43.7 10/24/2020 46.6 Platelet Count (k/uL) Date Value 06/12/2022 188 10/24/2020 286 Creatinine (mg/dL) Date Value 06/12/2022 1.05 10/24/2020 1.18 09/22/2020 1.13 09/17/2020 0.94 Bilirubin, Total (mg/dL) Date Value 06/12/2022 0.4 10/24/2020 0.4 ALT (U/L) Date Value 06/12/2022 27 10/24/2020 19 AST (U/L) Date Value 06/12/2022 29 10/24/2020 24 CrCl cannot be calculated (Patient's most recent lab result is older than the maximum 180 days allowed.). ALLERGIES Allergen Reactions Penicillins Unknown childhood Tegaderm Ag Mesh [S* Rash, Swelling Indication for Warfarin: detention current use of anticoagulant H/o mechanical aortic valve replacement Anticoagulation Episode Summary Current INR goal: 1.5-2.0 Assessment: INR result of 2.4 is SUPRAtherapeutic due to: Decreased vitamin k intake Plan: Current Warfarin Dosing As of 04/02/2024 Full warfarin instructions: 04/03: 2.5 mg; Otherwise 7.5 mg every Mon, Fri; 5 mg all other days Called and spoke to patient/caregiver Advised patient to decrease dose for 1 day only then resume weekly regimen Patient will try to eat more vitamin k foods Next home INR check scheduled on 04/16/2024 Patient verbalizes understanding of the plan. Patient denies need for refills. Patient advised to call the PAC with any medication changes, bleeding/bruising concerns, recent changes in vitamin k consumption, if any procedures are coming up, if they have been ill or in the hospital, and if they have missed any doses of warfarin. Nikolai Cerna RPh Clinical Pharmacist, [facility] Clinic [facility] Pager: [phone]. [facility] 04-02-2024 Miscellaneous Notes [facility] Anticoagulation Episode Summary Anticoagulation Care Providers Provider Role Specialty Phone number Juan Willis MD Referring Cardiology [phone] Arsenio Villalobos is a 58 year old year old male patient being evaluated today for a Telemanagement visit. Patient is currently on the following anticoagulant(s) Warfarin. Labs PT INR (no units) Date Value 03/14/2022 1.4 biotel 10/12/2021 2.7 07/30/2021 3.6 biotel INR Home CoaguChek (no units) Date Value 04/01/2024 2.4 03/11/2024 2.1 02/20/2024 1.6 Hemoglobin (g/dL) Date Value 06/12/2022 14.5 10/24/2020 15.2 Hematocrit (%) Date Value 06/12/2022 43.7 10/24/2020 46.6 Platelet Count (k/uL) Date Value 06/12/2022 188 10/24/2020 286 Creatinine (mg/dL) Date Value 06/12/2022 1.05 10/24/2020 1.18 09/22/2020 1.13 09/17/2020 0.94 Bilirubin, Total (mg/dL) Date Value 06/12/2022 0.4 10/24/2020 0.4 ALT (U/L) Date Value 06/12/2022 27 10/24/2020 19 AST (U/L) Date Value 06/12/2022 29 10/24/2020 24 CrCl cannot be calculated (Patient's most recent lab result is older than the maximum 180 days allowed.). ALLERGIES Allergen Reactions Penicillins Unknown childhood Tegaderm Ag Mesh [S* Rash, Swelling Indication for Warfarin: detention current use of anticoagulant H/o mechanical aortic valve replacement Anticoagulation Episode Summary Current INR goal: 1.5-2.0 Assessment: INR result of 2.4 is SUPRAtherapeutic due to: Decreased vitamin k intake Plan: Current Warfarin Dosing As of 04/02/2024 Full warfarin instructions: 04/03: 2.5 mg; Otherwise 7.5 mg every Mon, Fri; 5 mg all other days Called and spoke to patient/caregiver Advised patient to decrease dose for 1 day only then resume weekly regimen Patient will try to eat more vitamin k foods Next home INR check scheduled on 04/16/2024 Patient verbalizes understanding of the plan. Patient denies need for refills. Patient advised to call the PAC with any medication changes, bleeding/bruising concerns, recent changes in vitamin k consumption, if any procedures are coming up, if they have been ill or in the hospital, and if they have missed any doses of warfarin. Nikolai Cerna RPh Clinical Pharmacist, [facility]acy [facility] Pager: [phone]. documented in this encounter [facility] 03-11-2024 Telephone encounter Note [facility] Anticoagulation Episode Summary Anticoagulation Care Providers Provider Role Specialty Phone number Juan Willis MD Referring Cardiology [phone] Arsenio Villalobos is a 58 year old year old male patient being evaluated today for a Telemanagement visit. Patient is currently on the following anticoagulant(s) Warfarin. Labs PT INR (no units) Date Value 03/14/2022 1.4 biotel 10/12/2021 2.7 07/30/2021 3.6 biotel INR Home CoaguChek (no units) Date Value 03/11/2024 2.1 02/20/2024 1.6 02/06/2024 2.1 Hemoglobin (g/dL) Date Value 06/12/2022 14.5 10/24/2020 15.2 Hematocrit (%) Date Value 06/12/2022 43.7 10/24/2020 46.6 Platelet Count (k/uL) Date Value 06/12/2022 188 10/24/2020 286 Creatinine (mg/dL) Date Value 06/12/2022 1.05 10/24/2020 1.18 09/22/2020 1.13 09/17/2020 0.94 Bilirubin, Total (mg/dL) Date Value 06/12/2022 0.4 10/24/2020 0.4 ALT (U/L) Date Value 06/12/2022 27 10/24/2020 19 AST (U/L) Date Value 06/12/2022 29 10/24/2020 24 CrCl cannot be calculated (Patient's most recent lab result is older than the maximum 180 days allowed.). 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 H/o mechanical aortic valve replacement Anticoagulation Episode Summary Current INR goal: 1.5-2.0 Assessment: INR result of 2.1 is therapeutic Plan: Current Warfarin Dosing As of 03/11/2024 Full warfarin instructions: 7.5 mg every Mon, Fri; 5 mg all other days Sent [employer] message Advised patient to continue current weekly dose as noted above Next home INR check scheduled on 03/25/2024 Patient advised to call the PAC with any medication changes, bleeding/bruising concerns, recent changes in vitamin k consumption, if any procedures are coming up, if they have been ill or in the hospital, and if they have missed any doses of warfarin. Lydia Hanley [facility] Clinical Pharmacist, Pharmacy [facility]tico[facility] Pharm[facility] Pager: [phone]. [facility] 03-11-2024 Miscellaneous Notes [facility] Anticoagulation Episode Summary Anticoagulation Care Providers Provider Role Specialty Phone number Juan Willis MD Referring Cardiology [phone] Arsenio Villalobos is a 58 year old year old male patient being evaluated today for a Telemanagement visit. Patient is currently on the following anticoagulant(s) Warfarin. Labs PT INR (no units) Date Value 03/14/2022 1.4 biotel 10/12/2021 2.7 07/30/2021 3.6 biotel INR Home CoaguChek (no units) Date Value 03/11/2024 2.1 02/20/2024 1.6 02/06/2024 2.1 Hemoglobin (g/dL) Date Value 06/12/2022 14.5 10/24/2020 15.2 Hematocrit (%) Date Value 06/12/2022 43.7 10/24/2020 46.6 Platelet Count (k/uL) Date Value 06/12/2022 188 10/24/2020 286 Creatinine (mg/dL) Date Value 06/12/2022 1.05 10/24/2020 1.18 09/22/2020 1.13 09/17/2020 0.94 Bilirubin, Total (mg/dL) Date Value 06/12/2022 0.4 10/24/2020 0.4 ALT (U/L) Date Value 06/12/2022 27 10/24/2020 19 AST (U/L) Date Value 06/12/2022 29 10/24/2020 24 CrCl cannot be calculated (Patient's most recent lab result is older than the maximum 180 days allowed.). 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 H/o mechanical aortic valve replacement Anticoagulation Episode Summary Current INR goal: 1.5-2.0 Assessment: INR result of 2.1 is therapeutic Plan: Current Warfarin Dosing As of 03/11/2024 Full warfarin instructions: 7.5 mg every Mon, Fri; 5 mg all other days Sent [employer] message Advised patient to continue current weekly dose as noted above Next home INR check scheduled on 03/25/2024 Patient advised to call the PAC with any medication changes, bleeding/bruising concerns, recent changes in vitamin k consumption, if any procedures are coming up, if they have been ill or in the hospital, and if they have missed any doses of warfarin. Lydia Hanley RPh Clinical Pharmacist, Pharmacy [facility]ticoagulation Clinic [facility] Pager: [phone]. documented in this encounter [facility] 02-20-2024 Telephone encounter Note [facility] Anticoagulation Episode Summary Anticoagulation Care Providers Provider Role Specialty Phone number Juan Willis MD Referring Cardiology [phone] Arsenio Villalobos is a 58 year old year old male patient being evaluated today for a Telemanagement visit. Patient is currently on the following anticoagulant(s) Warfarin. Labs PT INR (no units) Date Value 03/14/2022 1.4 biotel 10/12/2021 2.7 07/30/2021 3.6 biotel INR Home CoaguChek (no units) Date Value 02/20/2024 1.6 02/06/2024 2.1 01/22/2024 2.8 Hemoglobin (g/dL) Date Value 06/12/2022 14.5 10/24/2020 15.2 Hematocrit (%) Date Value 06/12/2022 43.7 10/24/2020 46.6 Platelet Count (k/uL) Date Value 06/12/2022 188 10/24/2020 286 Creatinine (mg/dL) Date Value 06/12/2022 1.05 10/24/2020 1.18 09/22/2020 1.13 09/17/2020 0.94 Bilirubin, Total (mg/dL) Date Value 06/12/2022 0.4 10/24/2020 0.4 ALT (U/L) Date Value 06/12/2022 27 10/24/2020 19 AST (U/L) Date Value 06/12/2022 29 10/24/2020 24 CrCl cannot be calculated (Patient's most recent lab result is older than the maximum 180 days allowed.). ALLERGIES Allergen Reactions Penicillins Unknown childhood Tegaderm Ag Mesh [S* Rash, Swelling Indication for Warfarin: detention current use of anticoagulant H/o mechanical aortic valve replacement Anticoagulation Episode Summary Current INR goal: 1.5-2.0 Assessment: INR result of 1.6 is therapeutic Plan: Current Warfarin Dosing As of 02/20/2024 Full warfarin instructions: 7.5 mg every Mon, Fri; 5 mg all other days Sent [employer] message Advised patient to continue current weekly dose as noted above Next home INR check scheduled on 03/05/2024 Patient advised to call the PAC with any medication changes, bleeding/bruising concerns, recent changes in vitamin k consumption, if any procedures are coming up, if they have been ill or in the hospital, and if they have missed any doses of warfarin. Nikolai Cerna RPh Clinical Pharmacist, Pharmacy [facility]ticoagulation Clinic [facility] Pager: [phone]. [facility] 02-20-2024 Miscellaneous Notes [facility] Anticoagulation Episode Summary Anticoagulation Care Providers Provider Role Specialty Phone number Juan Willis MD Referring Cardiology [phone] Arsenio Villalobos is a 58 year old year old male patient being evaluated today for a Telemanagement visit. Patient is currently on the following anticoagulant(s) Warfarin. Labs PT INR (no units) Date Value 03/14/2022 1.4 biotel 10/12/2021 2.7 07/30/2021 3.6 biotel INR Home CoaguChek (no units) Date Value 02/20/2024 1.6 02/06/2024 2.1 01/22/2024 2.8 Hemoglobin (g/dL) Date Value 06/12/2022 14.5 10/24/2020 15.2 Hematocrit (%) Date Value 06/12/2022 43.7 10/24/2020 46.6 Platelet Count (k/uL) Date Value 06/12/2022 188 10/24/2020 286 Creatinine (mg/dL) Date Value 06/12/2022 1.05 10/24/2020 1.18 09/22/2020 1.13 09/17/2020 0.94 Bilirubin, Total (mg/dL) Date Value 06/12/2022 0.4 10/24/2020 0.4 ALT (U/L) Date Value 06/12/2022 27 10/24/2020 19 AST (U/L) Date Value 06/12/2022 29 10/24/2020 24 CrCl cannot be calculated (Patient's most recent lab result is older than the maximum 180 days allowed.). 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 H/o mechanical aortic valve replacement Anticoagulation Episode Summary Current INR goal: 1.5-2.0 Assessment: INR result of 1.6 is therapeutic Plan: Current Warfarin Dosing As of 02/20/2024 Full warfarin instructions: 7.5 mg every Mon, Fri; 5 mg all other days Sent [employer] message Advised patient to continue current weekly dose as noted above Next home INR check scheduled on 03/05/2024 Patient advised to call the PAC with any medication changes, bleeding/bruising concerns, recent changes in vitamin k consumption, if any procedures are coming up, if they have been ill or in the hospital, and if they have missed any doses of warfarin. Nikolai Cerna RPh Clinical Pharmacist, Pharmacy Anticoagulation Clinic Pharm[facility] Pager: [phone]. documented in this encounter [facility] 02-06-2024 Telephone encounter Note [facility] Anticoagulation Episode Summary Anticoagulation Care Providers Provider Role Specialty Phone number Juan Willis MD Referring Cardiology [phone] Arsenio Villalobos is a 58 year old year old male patient being evaluated today for a Telemanagement visit. Patient is currently on the following anticoagulant(s) Warfarin. Labs PT INR (no units) Date Value 03/14/2022 1.4 biotel 10/12/2021 2.7 07/30/2021 3.6 biotel INR Home CoaguChek (no units) Date Value 02/06/2024 2.1 01/22/2024 2.8 01/02/2024 1.6 Hemoglobin (g/dL) Date Value 06/12/2022 14.5 10/24/2020 15.2 Hematocrit (%) Date Value 06/12/2022 43.7 10/24/2020 46.6 Platelet Count (k/uL) Date Value 06/12/2022 188 10/24/2020 286 Creatinine (mg/dL) Date Value 06/12/2022 1.05 10/24/2020 1.18 09/22/2020 1.13 09/17/2020 0.94 Bilirubin, Total (mg/dL) Date Value 06/12/2022 0.4 10/24/2020 0.4 ALT (U/L) Date Value 06/12/2022 27 10/24/2020 19 AST (U/L) Date Value 06/12/2022 29 10/24/2020 24 CrCl cannot be calculated (Patient's most recent lab result is older than the maximum 180 days allowed.). ALLERGIES Allergen Reactions Penicillins Unknown childhood Tegaderm Ag Mesh [S* Rash, Swelling Indication for Warfarin: detention current use of anticoagulant H/o mechanical aortic valve replacement Anticoagulation Episode Summary Current INR goal: 1.5-2.0 Assessment: INR result of 2.1 is SUPRAtherapeutic due to: Decreased vitamin k intake; patient is not sure if he will resume previous Vit K consumption. He agrees to monitor this over the next two weeks. Patient preference to avoid TWD adjustment for now Plan: Current Warfarin Dosing As of 02/06/2024 Full warfarin instructions: 02/05: 5 mg; Otherwise 7.5 mg every Mon, Fri; 5 mg all other days Called and spoke to patient/caregiver Advised patient to decrease dose for 1 day only then resume weekly regimen Next home INR check scheduled on 02/19/2024 Patient verbalizes understanding of the plan. Patient denies need for refills. Patient advised to call the PAC with any medication changes, bleeding/bruising concerns, recent changes in vitamin k consumption, if any procedures are coming up, if they have been ill or in the hospital, and if they have missed any doses of warfarin. Radha Boyle RPh Clinical Pharmacist, Pharmacy Anticoagulation Clinic Pharm[facility] Pager: [phone]. [facility] 02-06-2024 Miscellaneous Notes [facility] Anticoagulation Episode Summary Anticoagulation Care Providers Provider Role Specialty Phone number Juan Willis MD Referring Cardiology [phone] Arsenio Villalobos is a 58 year old year old male patient being evaluated today for a Telemanagement visit. Patient is currently on the following anticoagulant(s) Warfarin. Labs PT INR (no units) Date Value 03/14/2022 1.4 biotel 10/12/2021 2.7 07/30/2021 3.6 biotel INR Home CoaguChek (no units) Date Value 02/06/2024 2.1 01/22/2024 2.8 01/02/2024 1.6 Hemoglobin (g/dL) Date Value 06/12/2022 14.5 10/24/2020 15.2 Hematocrit (%) Date Value 06/12/2022 43.7 10/24/2020 46.6 Platelet Count (k/uL) Date Value 06/12/2022 188 10/24/2020 286 Creatinine (mg/dL) Date Value 06/12/2022 1.05 10/24/2020 1.18 09/22/2020 1.13 09/17/2020 0.94 Bilirubin, Total (mg/dL) Date Value 06/12/2022 0.4 10/24/2020 0.4 ALT (U/L) Date Value 06/12/2022 27 10/24/2020 19 AST (U/L) Date Value 06/12/2022 29 10/24/2020 24 CrCl cannot be calculated (Patient's most recent lab result is older than the maximum 180 days allowed.). 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 He agrees to monitor this over the next two weeks. Patient preference to avoid TWD adjustment for now Plan: Current Warfarin Dosing As of 02/06/2024 Full warfarin instructions: 02/05: 5 mg; Otherwise 7.5 mg every Mon, Fri; 5 mg all other days Called and spoke to patient/caregiver Advised patient to decrease dose for 1 day only then resume weekly regimen Next home INR check scheduled on 02/19/2024 Patient verbalizes understanding of the plan. Patient denies need for refills. Patient advised to call the PAC with any medication changes, bleeding/bruising concerns, recent changes in vitamin k consumption, if any procedures are coming up, if they have been ill or in the hospital, and if they have missed any doses of warfarin. Radha Boyle RPh Clinical Pharmacist, Pharmacy Anticoagulation Clinic Pharm[facility] Pager: [phone]. documented in this encounter [facility] 02-05-2024 Telephone encounter Note Call from patient requesting refill. Requested Prescriptions Pending Prescriptions Disp Refills semaglutide, weight loss, (WEGOVY) 2.4 mg/0.75 mL pen injector 3 mL 2 Sig: Inject 2.4 mg under the skin one time a week. Patient last seen 08/01/23 Francie Humphrey [facility] 02-05-2024 Miscellaneous Notes Call from patient requesting refill. Requested Prescriptions Pending Prescriptions Disp Refills semaglutide, weight loss, (WEGOVY) 2.4 mg/0.75 mL pen injector 3 mL 2 Sig: Inject 2.4 mg under the skin one time a week. Patient last seen 08/01/23 Francie Humphrey documented in this encounter [facility] 01-22-2024 Telephone encounter Note [facility] Anticoagulation Episode Summary Anticoagulation Care Providers Provider Role Specialty Phone number Juan Willis MD Referring Cardiology [phone] Arsenio Villalobos is a 58 year old year old male patient being evaluated today for a Telemanagement visit. Patient is currently on the following anticoagulant(s) Warfarin. Labs PT INR (no units) Date Value 03/14/2022 1.4 biotel 10/12/2021 2.7 07/30/2021 3.6 biotel INR Home CoaguChek (no units) Date Value 01/22/2024 2.8 01/02/2024 1.6 12/18/2023 1.7 Hemoglobin (g/dL) Date Value 06/12/2022 14.5 10/24/2020 15.2 Hematocrit (%) Date Value 06/12/2022 43.7 10/24/2020 46.6 Platelet Count (k/uL) Date Value 06/12/2022 188 10/24/2020 286 Creatinine (mg/dL) Date Value 06/12/2022 1.05 10/24/2020 1.18 09/22/2020 1.13 09/17/2020 0.94 Bilirubin, Total (mg/dL) Date Value 06/12/2022 0.4 10/24/2020 0.4 ALT (U/L) Date Value 06/12/2022 27 10/24/2020 19 AST (U/L) Date Value 06/12/2022 29 10/24/2020 24 CrCl cannot be calculated (Patient's most recent lab result is older than the maximum 180 days allowed.). 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 Patient denies need for refills. Lydia Hanley RPh Clinical Pharmacist, Pharmacy Anticoagulation Clinic Pharmacy [facility] Pager: [phone]. [facility] 01-22-2024 Miscellaneous Notes [facility] Anticoagulation Episode Summary Anticoagulation Care Providers Provider Role Specialty Phone number Juan Willis MD Referring Cardiology [phone] Arsenio Villalobos is a 58 year old year old male patient being evaluated today for a Telemanagement visit. Patient is currently on the following anticoagulant(s) Warfarin. Labs PT INR (no units) Date Value 03/14/2022 1.4 biotel 10/12/2021 2.7 07/30/2021 3.6 biotel INR Home CoaguChek (no units) Date Value 01/22/2024 2.8 01/02/2024 1.6 12/18/2023 1.7 Hemoglobin (g/dL) Date Value 06/12/2022 14.5 10/24/2020 15.2 Hematocrit (%) Date Value 06/12/2022 43.7 10/24/2020 46.6 Platelet Count (k/uL) Date Value 06/12/2022 188 10/24/2020 286 Creatinine (mg/dL) Date Value 06/12/2022 1.05 10/24/2020 1.18 09/22/2020 1.13 09/17/2020 0.94 Bilirubin, Total (mg/dL) Date Value 06/12/2022 0.4 10/24/2020 0.4 ALT (U/L) Date Value 06/12/2022 27 10/24/2020 19 AST (U/L) Date Value 06/12/2022 29 10/24/2020 24 CrCl cannot be calculated (Patient's most recent lab result is older than the maximum 180 days allowed.). 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 Patient denies need for refills. Lydia Hanley RPh Clinical Pharmacist, Pharmacy Anticoagulation Clinic Pharmacy Antico[facility] Pager: [phone]. documented in this encounter [facility] 12-18-2023 Telephone encounter Note [facility] Anticoagulation Episode Summary Anticoagulation Care Providers Provider Role Specialty Phone number Juan Willis MD Referring Cardiology [phone] Arsenio Villalobos is a 58 year old year old male patient being evaluated today for a Telemanagement visit. Patient is currently on the following anticoagulant(s) Warfarin. Labs PT INR (no units) Date Value 03/14/2022 1.4 biotel 10/12/2021 2.7 07/30/2021 3.6 biotel INR Home CoaguChek (no units) Date Value 12/18/2023 1.7 12/04/2023 3.4 11/14/2023 1.9 Hemoglobin (g/dL) Date Value 06/12/2022 14.5 10/24/2020 15.2 Hematocrit (%) Date Value 06/12/2022 43.7 10/24/2020 46.6 Platelet Count (k/uL) Date Value 06/12/2022 188 10/24/2020 286 Creatinine (mg/dL) Date Value 06/12/2022 1.05 10/24/2020 1.18 09/22/2020 1.13 09/17/2020 0.94 Bilirubin, Total (mg/dL) Date Value 06/12/2022 0.4 10/24/2020 0.4 ALT (U/L) Date Value 06/12/2022 27 10/24/2020 19 AST (U/L) Date Value 06/12/2022 29 10/24/2020 24 CrCl cannot be calculated (Patient's most recent lab result is older than the maximum 180 days allowed.). 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 Patient denies need for refills. Lydia Hanley [facility] Clinical Pharmacist, Pharmacy Anticoagulation Clinic Pharmacy Anticoagulation Clinic Pager: [phone]. [facility] 12-18-2023 Miscellaneous Notes [facility] Anticoagulation Episode Summary Anticoagulation Care Providers Provider Role Specialty Phone number Juan Willis MD Referring Cardiology [phone] Arsenio Villalobos is a 58 year old year old male patient being evaluated today for a Telemanagement visit. Patient is currently on the following anticoagulant(s) Warfarin. Labs PT INR (no units) Date Value 03/14/2022 1.4 biotel 10/12/2021 2.7 07/30/2021 3.6 biotel INR Home CoaguChek (no units) Date Value 12/18/2023 1.7 12/04/2023 3.4 11/14/2023 1.9 Hemoglobin (g/dL) Date Value 06/12/2022 14.5 10/24/2020 15.2 Hematocrit (%) Date Value 06/12/2022 43.7 10/24/2020 46.6 Platelet Count (k/uL) Date Value 06/12/2022 188 10/24/2020 286 Creatinine (mg/dL) Date Value 06/12/2022 1.05 10/24/2020 1.18 09/22/2020 1.13 09/17/2020 0.94 Bilirubin, Total (mg/dL) Date Value 06/12/2022 0.4 10/24/2020 0.4 ALT (U/L) Date Value 06/12/2022 27 10/24/2020 19 AST (U/L) Date Value 06/12/2022 29 10/24/2020 24 CrCl cannot be calculated (Patient's most recent lab result is older than the maximum 180 days allowed.). 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 Patient denies need for refills. Lydia Hanley RPh Clinical Pharmacist, Pharmacy Anticoagulation Clinic Pharmacy Anticoagulation Clinic Pager: [phone]. documented in this encounter [facility] 12-05-2023 Telephone encounter Note [facility] Anticoagulation Episode Summary Anticoagulation Care Providers Provider Role Specialty Phone number Juan Willis MD Referring Cardiology [phone] Arsenio Villalobos is a 58 year old year old male patient being evaluated today for a Telemanagement visit. Patient is currently on the following anticoagulant(s) Warfarin. Labs PT INR (no units) Date Value 03/14/2022 1.4 biotel 10/12/2021 2.7 07/30/2021 3.6 biotel INR Home CoaguChek (no units) Date Value 12/04/2023 3.4 11/14/2023 1.9 10/25/2023 1.7 Hemoglobin (g/dL) Date Value 06/12/2022 14.5 10/24/2020 15.2 Hematocrit (%) Date Value 06/12/2022 43.7 10/24/2020 46.6 Platelet Count (k/uL) Date Value 06/12/2022 188 10/24/2020 286 Creatinine (mg/dL) Date Value 06/12/2022 1.05 10/24/2020 1.18 09/22/2020 1.13 09/17/2020 0.94 Bilirubin, Total (mg/dL) Date Value 06/12/2022 0.4 10/24/2020 0.4 ALT (U/L) Date Value 06/12/2022 27 10/24/2020 19 AST (U/L) Date Value 06/12/2022 29 10/24/2020 24 CrCl cannot be calculated (Patient's most recent lab result is older than the maximum 180 days allowed.). ALLERGIES Allergen Reactions Penicillins Unknown childhood Tegaderm Ag Mesh [S* Rash, Swelling Indication for Warfarin: Anticoagulation Episode Summary Current INR goal: 1.5-2.0 Assessment: INR result of 3.4 is SUPRAtherapeutic due to: unknown cause - did not speak to patient Plan: Current Warfarin Dosing As of 12/05/2023 Full warfarin instructions: 12/04: Hold; Otherwise 7.5 mg every Mon, Fri; 5 mg all other days Left voice message Advised patient to hold 1 dose then continue current regimen Next home INR check scheduled on 12/19/2023 Lucita Alba RPh Clinical Pharmacist, Pharmacy Anticoagulation Clinic Pharmacy Antico[facility] Clinic Pager: [phone]. [facility] 12-05-2023 Miscellaneous Notes [facility] Anticoagulation Episode Summary Anticoagulation Care Providers Provider Role Specialty Phone number Juan Willis MD Referring Cardiology [phone] Arsenio Villalobos is a 58 year old year old male patient being evaluated today for a Telemanagement visit. Patient is currently on the following anticoagulant(s) Warfarin. Labs PT INR (no units) Date Value 03/14/2022 1.4 biotel 10/12/2021 2.7 07/30/2021 3.6 biotel INR Home CoaguChek (no units) Date Value 12/04/2023 3.4 11/14/2023 1.9 10/25/2023 1.7 Hemoglobin (g/dL) Date Value 06/12/2022 14.5 10/24/2020 15.2 Hematocrit (%) Date Value 06/12/2022 43.7 10/24/2020 46.6 Platelet Count (k/uL) Date Value 06/12/2022 188 10/24/2020 286 Creatinine (mg/dL) Date Value 06/12/2022 1.05 10/24/2020 1.18 09/22/2020 1.13 09/17/2020 0.94 Bilirubin, Total (mg/dL) Date Value 06/12/2022 0.4 10/24/2020 0.4 ALT (U/L) Date Value 06/12/2022 27 10/24/2020 19 AST (U/L) Date Value 06/12/2022 29 10/24/2020 24 CrCl cannot be calculated (Patient's most recent lab result is older than the maximum 180 days allowed.). ALLERGIES Allergen Reactions Penicillins Unknown childhood Tegaderm Ag Mesh [S* Rash, Swelling Indication for Warfarin: Anticoagulation Episode Summary Current INR goal: 1.5-2.0 Assessment: INR result of 3.4 is SUPRAtherapeutic due to: unknown cause - did not speak to patient Plan: Current Warfarin Dosing As of 12/05/2023 Full warfarin instructions: 12/04: Hold; Otherwise 7.5 mg every Mon, Fri; 5 mg all other days Left voice message Advised patient to hold 1 dose then continue current regimen Next home INR check scheduled on 12/19/2023 Lucita Alba RPh Clinical Pharmacist, Pharmacy Anticoagulation Clinic Pharmacy Anticoagulation Clinic Pager: [phone]. documented in this encounter [facility] 11-14-2023 Telephone encounter Note [facility] Anticoagulation Episode Summary Anticoagulation Care Providers Provider Role Specialty Phone number Juan Willis MD Referring Cardiology [phone] Arsenio Villalobos is a 58 year old year old male patient being evaluated today for a Telemanagement visit. Patient is currently on the following anticoagulant(s) Warfarin. Labs PT INR (no units) Date Value 03/14/2022 1.4 biotel 10/12/2021 2.7 07/30/2021 3.6 biotel INR Home CoaguChek (no units) Date Value 11/14/2023 1.9 10/25/2023 1.7 10/08/2023 1.6 Hemoglobin (g/dL) Date Value 06/12/2022 14.5 10/24/2020 15.2 Hematocrit (%) Date Value 06/12/2022 43.7 10/24/2020 46.6 Platelet Count (k/uL) Date Value 06/12/2022 188 10/24/2020 286 Creatinine (mg/dL) Date Value 06/12/2022 1.05 10/24/2020 1.18 09/22/2020 1.13 09/17/2020 0.94 Bilirubin, Total (mg/dL) Date Value 06/12/2022 0.4 10/24/2020 0.4 ALT (U/L) Date Value 06/12/2022 27 10/24/2020 19 AST (U/L) Date Value 06/12/2022 29 10/24/2020 24 CrCl cannot be calculated (Patient's most recent lab result is older than the maximum 180 days allowed.). ALLERGIES Allergen Reactions Penicillins Unknown childhood Tegaderm Ag Mesh [S* Rash, Swelling Indication for Warfarin: Anticoagulation Episode Summary Current INR goal: 1.5-2.0 Assessment: INR result of 1.9 is therapeutic Plan: Current Warfarin Dosing As of 11/14/2023 Full warfarin instructions: 7.5 mg every Mon, Fri; 5 mg all other days Sent [employer] message Advised patient to continue current weekly dose as noted above Next home INR check scheduled on 11/28/2023 Lucita Alba RPh Clinical Pharmacist, Pharmacy Anticoagulation Clinic Pharmacy Anticoagulation Clinic Pager: [phone]. [facility] 11-14-2023 Miscellaneous Notes [facility] Anticoagulation Episode Summary Anticoagulation Care Providers Provider Role Specialty Phone number Juan Willis MD Referring Cardiology [phone] Arsenio Villalobos is a 58 year old year old male patient being evaluated today for a Telemanagement visit. Patient is currently on the following anticoagulant(s) Warfarin. Labs PT INR (no units) Date Value 03/14/2022 1.4 biotel 10/12/2021 2.7 07/30/2021 3.6 biotel INR Home CoaguChek (no units) Date Value 11/14/2023 1.9 10/25/2023 1.7 10/08/2023 1.6 Hemoglobin (g/dL) Date Value 06/12/2022 14.5 10/24/2020 15.2 Hematocrit (%) Date Value 06/12/2022 43.7 10/24/2020 46.6 Platelet Count (k/uL) Date Value 06/12/2022 188 10/24/2020 286 Creatinine (mg/dL) Date Value 06/12/2022 1.05 10/24/2020 1.18 09/22/2020 1.13 09/17/2020 0.94 Bilirubin, Total (mg/dL) Date Value 06/12/2022 0.4 10/24/2020 0.4 ALT (U/L) Date Value 06/12/2022 27 10/24/2020 19 AST (U/L) Date Value 06/12/2022 29 10/24/2020 24 CrCl cannot be calculated (Patient's most recent lab result is older than the maximum 180 days allowed.). ALLERGIES Allergen Reactions Penicillins Unknown childhood Tegaderm Ag Mesh [S* Rash, Swelling Indication for Warfarin: Anticoagulation Episode Summary Current INR goal: 1.5-2.0 Assessment: INR result of 1.9 is therapeutic Plan: Current Warfarin Dosing As of 11/14/2023 Full warfarin instructions: 7.5 mg every Mon, Fri; 5 mg all other days Sent [employer] message Advised patient to continue current weekly dose as noted above Next home INR check scheduled on 11/28/2023 Lucita Alba RPh Clinical Pharmacist, Pharmacy Anticoagulation Clinic Pharmacy Antico[facility] Clinic Pager: [phone]. documented in this encounter [facility] 10-27-2023 Telephone encounter Note [facility] Anticoagulation Episode Summary Anticoagulation Care Providers Provider Role Specialty Phone number Juan Willis MD Referring Cardiology [phone] Arsenio Villalobos is a 58 year old year old male patient being evaluated today for a Telemanagement visit. Patient is currently on the following anticoagulant(s) Warfarin. Labs PT INR (no units) Date Value 03/14/2022 1.4 biotel 10/12/2021 2.7 07/30/2021 3.6 biotel INR Home CoaguChek (no units) Date Value 10/25/2023 1.7 10/08/2023 1.6 09/21/2023 1.7 Hemoglobin (g/dL) Date Value 06/12/2022 14.5 10/24/2020 15.2 Hematocrit (%) Date Value 06/12/2022 43.7 10/24/2020 46.6 Platelet Count (k/uL) Date Value 06/12/2022 188 10/24/2020 286 Creatinine (mg/dL) Date Value 06/12/2022 1.05 10/24/2020 1.18 09/22/2020 1.13 09/17/2020 0.94 Bilirubin, Total (mg/dL) Date Value 06/12/2022 0.4 10/24/2020 0.4 ALT (U/L) Date Value 06/12/2022 27 10/24/2020 19 AST (U/L) Date Value 06/12/2022 29 10/24/2020 24 CrCl cannot be calculated (Patient's most recent lab result is older than the maximum 180 days allowed.). ALLERGIES Allergen Reactions Penicillins Unknown childhood Tegaderm Ag Mesh [S* Rash, Swelling Indication for Warfarin: detention current use of anticoagulant H/o mechanical aortic valve replacement Anticoagulation Episode Summary Current INR goal: 1.5-2.0 Assessment: INR result of 1.7 is therapeutic Plan: Current Warfarin Dosing As of 10/27/2023 Full warfarin instructions: 7.5 mg every Mon, Fri; 5 mg all other days Sent [employer] message Advised patient to continue current weekly dose as noted above Next home INR check scheduled on 11/07/2023 Monalisa Melendez RPh Clinical Pharmacist, Pharmacy Anticoagulation Clinic Pharmacy Anticoagulation Clinic Pager: [phone]. [facility] 10-27-2023 Miscellaneous Notes [facility] Anticoagulation Episode Summary Anticoagulation Care Providers Provider Role Specialty Phone number Juan Willis MD Referring Cardiology [phone] Arsenio Villalobos is a 58 year old year old male patient being evaluated today for a Telemanagement visit. Patient is currently on the following anticoagulant(s) Warfarin. Labs PT INR (no units) Date Value 03/14/2022 1.4 biotel 10/12/2021 2.7 07/30/2021 3.6 biotel INR Home CoaguChek (no units) Date Value 10/25/2023 1.7 10/08/2023 1.6 09/21/2023 1.7 Hemoglobin (g/dL) Date Value 06/12/2022 14.5 10/24/2020 15.2 Hematocrit (%) Date Value 06/12/2022 43.7 10/24/2020 46.6 Platelet Count (k/uL) Date Value 06/12/2022 188 10/24/2020 286 Creatinine (mg/dL) Date Value 06/12/2022 1.05 10/24/2020 1.18 09/22/2020 1.13 09/17/2020 0.94 Bilirubin, Total (mg/dL) Date Value 06/12/2022 0.4 10/24/2020 0.4 ALT (U/L) Date Value 06/12/2022 27 10/24/2020 19 AST (U/L) Date Value 06/12/2022 29 10/24/2020 24 CrCl cannot be calculated (Patient's most recent lab result is older than the maximum 180 days allowed.). 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 documented in this encounter [facility] 10-08-2023 Telephone encounter Note [facility] Anticoagulation Episode Summary Anticoagulation Care Providers Provider Role Specialty Phone number Juan Willis MD Referring Cardiology [phone] Arsenio Villalobos is a 58 year old year old male patient being evaluated today for a Telemanagement visit. Patient is currently on the following anticoagulant(s) Warfarin. Labs PT INR (no units) Date Value 03/14/2022 1.4 biotel 10/12/2021 2.7 07/30/2021 3.6 biotel INR Home CoaguChek (no units) Date Value 10/08/2023 1.6 09/21/2023 1.7 08/27/2023 2.0 Hemoglobin (g/dL) Date Value 06/12/2022 14.5 10/24/2020 15.2 Hematocrit (%) Date Value 06/12/2022 43.7 10/24/2020 46.6 Platelet Count (k/uL) Date Value 06/12/2022 188 10/24/2020 286 Creatinine (mg/dL) Date Value 06/12/2022 1.05 10/24/2020 1.18 09/22/2020 1.13 09/17/2020 0.94 Bilirubin, Total (mg/dL) Date Value 06/12/2022 0.4 10/24/2020 0.4 ALT (U/L) Date Value 06/12/2022 27 10/24/2020 19 AST (U/L) Date Value 06/12/2022 29 10/24/2020 24 CrCl cannot be calculated (Patient's most recent lab result is older than the maximum 180 days allowed.). 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 [facility] 10-08-2023 Miscellaneous Notes [facility] Anticoagulation Episode Summary Anticoagulation Care Providers Provider Role Specialty Phone number Juan Willis MD Referring Cardiology [phone] Arsenio Villalobos is a 58 year old year old male patient being evaluated today for a Telemanagement visit. Patient is currently on the following anticoagulant(s) Warfarin. Labs PT INR (no units) Date Value 03/14/2022 1.4 biotel 10/12/2021 2.7 07/30/2021 3.6 biotel INR Home CoaguChek (no units) Date Value 10/08/2023 1.6 09/21/2023 1.7 08/27/2023 2.0 Hemoglobin (g/dL) Date Value 06/12/2022 14.5 10/24/2020 15.2 Hematocrit (%) Date Value 06/12/2022 43.7 10/24/2020 46.6 Platelet Count (k/uL) Date Value 06/12/2022 188 10/24/2020 286 Creatinine (mg/dL) Date Value 06/12/2022 1.05 10/24/2020 1.18 09/22/2020 1.13 09/17/2020 0.94 Bilirubin, Total (mg/dL) Date Value 06/12/2022 0.4 10/24/2020 0.4 ALT (U/L) Date Value 06/12/2022 27 10/24/2020 19 AST (U/L) Date Value 06/12/2022 29 10/24/2020 24 CrCl cannot be calculated (Patient's most recent lab result is older than the maximum 180 days allowed.). ALLERGIES Allergen Reactions Penicillins Unknown childhood Tegaderm Ag Mesh [S* Rash, Swelling Indication for Warfarin: detention current use of anticoagulant H/o mechanical aortic valve replacement Anticoagulation Episode Summary Current INR goal: 1.5-2.0 Assessment: INR result of 1.6 is therapeutic Plan: Current Warfarin Dosing As of 10/08/2023 Full warfarin instructions: 7.5 mg every Mon, Fri; 5 mg all other days Sent [employer] message Advised patient to continue current weekly dose as noted above Next home INR check scheduled on 10/22/2023 Monalisa Melendez RPh Clinical Pharmacist, Pharmacy Anticoagulation Clinic Pharmacy [facility] Pager: [phone]. documented in this encounter [facility] 09-05-2023 Telephone encounter Note Call from pharmacy requesting refill. Requested Prescriptions Pending Prescriptions Disp Refills semaglutide, weight loss, (WEGOVY) 2.4 mg/0.75 mL pen injector 3 mL 2 Sig: Inject 0.75 mL subcutaneously one time a week. Patient last seen 08/01/2023 Jostin Fitch [facility] 09-05-2023 Miscellaneous Notes Call from pharmacy requesting refill. Requested Prescriptions Pending Prescriptions Disp Refills semaglutide, weight loss, (WEGOVY) 2.4 mg/0.75 mL pen injector 3 mL 2 Sig: Inject 0.75 mL subcutaneously one time a week. Patient last seen 08/01/2023 Jostin Fitch documented in this encounter [facility] 08-28-2023 Telephone encounter Note [facility] Anticoagulation Episode Summary Anticoagulation Care Providers Provider Role Specialty Phone number Juan Willis MD Referring Cardiology [phone] Arsenio Villalobos is a 58 year old year old male patient being evaluated today for a Telemanagement visit. Patient is currently on the following anticoagulant(s) Warfarin. Labs PT INR (no units) Date Value 03/14/2022 1.4 biotel 10/12/2021 2.7 07/30/2021 3.6 biotel INR Home CoaguChek (no units) Date Value 08/27/2023 2.0 08/08/2023 1.9 07/18/2023 1.6 Hemoglobin (g/dL) Date Value 06/12/2022 14.5 10/24/2020 15.2 Hematocrit (%) Date Value 06/12/2022 43.7 10/24/2020 46.6 Platelet Count (k/uL) Date Value 06/12/2022 188 10/24/2020 286 Creatinine (mg/dL) Date Value 06/12/2022 1.05 10/24/2020 1.18 09/22/2020 1.13 09/17/2020 0.94 Bilirubin, Total (mg/dL) Date Value 06/12/2022 0.4 10/24/2020 0.4 ALT (U/L) Date Value 06/12/2022 27 10/24/2020 19 AST (U/L) Date Value 06/12/2022 29 10/24/2020 24 CrCl cannot be calculated (Patient's most recent lab result is older than the maximum 180 days allowed.). ALLERGIES Allergen Reactions Penicillins Unknown childhood Tegaderm Ag Mesh [S* Rash, Swelling Indication for Warfarin: detention current use of anticoagulant H/o mechanical aortic valve replacement Anticoagulation Episode Summary Current INR goal: 1.5-2.0 Assessment: INR result of 2.0 is therapeutic Plan: Current Warfarin Dosing As of 08/28/2023 Full warfarin instructions: 7.5 mg every Mon, Fri; 5 mg all other days Sent [employer] message Advised patient to continue current weekly dose as noted above Next home INR check scheduled on 09/10/2023 Lydia Hanley RPh Clinical Pharmacist, Pharmacy Anticoagulation Clinic Pharmacy [facility] Pager: [phone]. [facility] 08-28-2023 Miscellaneous Notes [facility] Anticoagulation Episode Summary Anticoagulation Care Providers Provider Role Specialty Phone number Juan Willis MD Referring Cardiology [phone] Arsenio Villalobos is a 58 year old year old male patient being evaluated today for a Telemanagement visit. Patient is currently on the following anticoagulant(s) Warfarin. Labs PT INR (no units) Date Value 03/14/2022 1.4 biotel 10/12/2021 2.7 07/30/2021 3.6 biotel INR Home CoaguChek (no units) Date Value 08/27/2023 2.0 08/08/2023 1.9 07/18/2023 1.6 Hemoglobin (g/dL) Date Value 06/12/2022 14.5 10/24/2020 15.2 Hematocrit (%) Date Value 06/12/2022 43.7 10/24/2020 46.6 Platelet Count (k/uL) Date Value 06/12/2022 188 10/24/2020 286 Creatinine (mg/dL) Date Value 06/12/2022 1.05 10/24/2020 1.18 09/22/2020 1.13 09/17/2020 0.94 Bilirubin, Total (mg/dL) Date Value 06/12/2022 0.4 10/24/2020 0.4 ALT (U/L) Date Value 06/12/2022 27 10/24/2020 19 AST (U/L) Date Value 06/12/2022 29 10/24/2020 24 CrCl cannot be calculated (Patient's most recent lab result is older than the maximum 180 days allowed.). 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 documented in this encounter [facility] 08-08-2023 Miscellaneous Notes [facility] Anticoagulation Episode Summary Anticoagulation Care Providers Provider Role Specialty Phone number Juan Willis MD Referring Cardiology [phone] Arsenio Villalobos is a 57 year old year old male patient being evaluated today for a Telemanagement visit. Patient is currently on the following anticoagulant(s) Warfarin. Labs PT INR (no units) Date Value 03/14/2022 1.4 biotel 10/12/2021 2.7 07/30/2021 3.6 biotel INR Home CoaguChek (no units) Date Value 08/08/2023 1.9 07/18/2023 1.6 06/21/2023 1.5 Hemoglobin (g/dL) Date Value 06/12/2022 14.5 10/24/2020 15.2 Hematocrit (%) Date Value 06/12/2022 43.7 10/24/2020 46.6 Platelet Count (k/uL) Date Value 06/12/2022 188 10/24/2020 286 Creatinine (mg/dL) Date Value 06/12/2022 1.05 10/24/2020 1.18 09/22/2020 1.13 09/17/2020 0.94 Bilirubin, Total (mg/dL) Date Value 06/12/2022 0.4 10/24/2020 0.4 ALT (U/L) Date Value 06/12/2022 27 10/24/2020 19 AST (U/L) Date Value 06/12/2022 29 10/24/2020 24 CrCl cannot be calculated (Patient's most recent lab result is older than the maximum 180 days allowed.). ALLERGIES Allergen Reactions Penicillins Unknown childhood Tegaderm Ag Mesh [S* Rash, Swelling Indication for Warfarin: detention current use of anticoagulant H/o mechanical aortic valve replacement Anticoagulation Episode Summary Current INR goal: 1.5-2.0 Assessment: INR result of 1.9 is therapeutic Plan: Current Warfarin Dosing As of 08/08/2023 Full warfarin instructions: 7.5 mg every Mon, Fri; 5 mg all other days Sent [employer] message Advised patient to continue current weekly dose as noted above Next home INR check scheduled on 08/22/2023 Nikolai Cerna RPh Clinical Pharmacist, Pharmacy Anticoagulation Clinic Pharmacy Anticoagulation Clinic Pager: [phone]. documented in this encounter [facility] 08-01-2023 History of Present illness Narrative Images from the original note were not included. [facility] [place] Trevor Velazquez Department of Cardiovascular Medicine SECTION OF CLINICAL CARDIOLOGY OUTPATIENT VISIT DATE November OUTPATIENT VISIT TYPE ESTABLISHED/FOLLOWUP This is a virtual video visit. It required patient-provider interaction for the medical decision making as documented below. The patient has consented to this video encounter. I have communicated my name and active licensure. The patient's identity and physical location were verified at the time of this visit. Either the patient or their legal marketing representative has been informed of the risks and benefits of -- and alternatives to -- treatment through a remote evaluation and consents to proceed with the evaluation remotely. CHIEF COMPLAINT: Followup HISTORY OF PRESENT ILLNESS: Patient presents today for cardiovascular followup CARDIAC & RELEVANT PAST HISTORY: Per Dr. Willis' prior note: Hypertension Blood pressure not well controlled in 2022; Losartan 100mg On Toprol XL 100mg --> consider alternative Rx. bicuspid aortic valve and severe aortic stenosis S/P SAVR with mechanical valve in 08/2020 ON-X Follows INR with home machine and [facility] coumadin clinic, Taking baby aspirin Historically Interested in pharmacological treatment of obesity, was on ozempic bridge, now on Wegovy Has lost around 30#. Today: doing well, no notable symptoms. Speculates if the MTP is leading to some brain fog/fatigue. Weaning off the BB. Lost around 30# total on the Wegovy. The 10-year ASCVD risk score (Castillo YLNN, et al., 2019) is: 5.6% Values used to calculate the score: Age: 57 years Sex: Male Is Non- : No Diabetic: No Tobacco smoker: No Systolic Blood Pressure: 120 mmHg Is BP treated: Yes HDL Cholesterol: 53 mg/dL Total Cholesterol: 171 mg/dL IMPRESSION: Mr. Villalobos is a 57 year old male with Hypertension on losartan 100mg. Obesity, interested in semaglutide, Dr. Willis 05/2022 started ozempic 0.25 mg weekly injection then transitioned him to Wegovy. Been tolerating current dose; I uptitrated dose to next intensity. Bicuspid AV and severe S/P mechanical SAVR ON-X, on coumadin, INR target 1.5-2.5, on warfarin and on baby aspirin Echo 2023 with EF 53%, trace AI, PG 9 mmHg across AVR. Similar findings. Favor against MTP dosing at this time (brain fog concern by patient); less impactive for BP control. PLAN AND RECOMMENDATIONS: Continue baby aspirin and coumadin given mechanical AVR Discussed role/impact of metoprolol succinate 100 mg for HTN (historically had fatigue on 200mg XL dosing); shared decision to wean down and then off beta jasmeet (monitor for ectopy/palpitations given PVC history) Continue losartan to 100 mg; monitor home BP trends; patient to MyChart message me if BP rises significantly. Basal higher HR trends consistently in 80-90s. Will explore thyroid function; followup remotely See back in 6 months for Wegovy, BP check. Repeat echo in a year, given BAV history, to evaluate AVR and aortic root. Aortic position On-X valve with INR goal 1.5-2.5. I personally review the above studies and workup that includes ECGs, Echos, Cath reports, labs and heart rhythm monitors along with related images (if/as available) I spent a total of 30 minutes on the date of the service which included preparing to see the patient, completing clinical documentation, counseling and educating the patient/family/caregiver, and communicating results to the patient/family/caregiver In addition to the above history and physical exam, the above plan and care goals address current medical problems and optimize control of cardiovascular risk factors to reduce the risk of future heart disease. Time was spent counseling and/or coordinating care for the patient, including discussion of the natural history of related disease, current treatment options, and future prognosis. I encourage lifestyle modifications including a heart healthy diet, exercise, blood pressure control and smoking cessation, if applicable, as well as general heart health/prevention. Thank you for our visit today. It's a privilege to be part of your care. Kaleb Edurado MD, MPH Staff Inventory Representative [facility] [place] [address], [address] [place] [address] documented in this encounter [facility] 06-18-2023 Miscellaneous Notes [facility] received prescription(s) for Wegovy from Dr. Eduardo's office. Unfortunately, we do not carry or service non-specialty medications. If you would like the medication to be mailed to the patient by a [facility], please consider sending the Rx to [facility] (phone [phone]). Otherwise, please send the Rx to a [facility] outpatient pharmacy or patient's preferred pharmacy. Denisse Becker documented in this encounter [facility] 06-17-2023 History of Present illness Narrative Images from the original note were not included. [facility] [place] Trevor Velazquez Department of Cardiovascular Medicine SECTION OF CLINICAL CARDIOLOGY OUTPATIENT VISIT DATE 06/17/23 OUTPATIENT VISIT TYPE ESTABLISHED/FOLLOWUP CHIEF COMPLAINT: Followup HISTORY OF PRESENT ILLNESS: Patient presents today for cardiovascular followup CARDIAC & RELEVANT PAST HISTORY: Per Dr. Willis' prior note: Hypertension Blood pressure not well controlled in 2022; Losartan 50mg increased to 100mg On Toprol XL 100mg --> consider alternative Rx. bicuspid aortic valve and severe aortic stenosis S/P SAVR with mechanical valve in 08/2020 ON-X Follows INR with home machine and [facility] coumadin clinic, Taking baby aspirin Historically Interested in pharmacological treatment of obesity, was on ozempic bridge, now on Wegovy Today: doing well, no notable symptoms. Speculates if the MTP is leading to some brain fog/fatigue. IMPRESSION: Mr. Villalobos is a 57 year old male with Hypertension on losartan 100mg and Succinate 100mg Obesity, interested in semaglutide, Dr. Willis 05/2022 started ozempic 0.25 mg weekly injection then transitioned him to Wegovy. Been tolerating current dose; I uptitrated dose to next intensity. Bicuspid AV and severe S/P mechanical SAVR ON-X, on coumadin, INR target 1.5-2.5, on warfarin and on baby aspirin, echo in 2020 demonstrating valve well functioning PG 14 mmHg, trace AI; aware of bacterial prophylaxis Favor against MTP dosing at this time (brain fog concern by patient); less impactive for BP control. PLAN AND RECOMMENDATIONS: Continue baby aspirin and coumadin given mechanical AVR Discussed role/impact of metoprolol succinate 100 mg for HTN (historically had fatigue on 200mg XL dosing); shared decision to wean down and then off beta jasmete (monitor for ectopy/palpitations given PVC history) Continue losartan to 100 mg; monitor home BP trends; patient to [employer] message me if BP rises significantly. Repeat echo, given BAV history, to evaluate AVR and aortic root. Aortic position On-X valve with INR goal 1.5-2.5. PHYSICAL EXAMINATION: BP 120/85 (BP Site: Left Arm, BP Position: Sitting, BP Cuff Size: Regular Adult) Pulse 84 Resp 16 Ht 175.3 cm (5' 9) Wt 99.3 kg (219 lb) SpO2 100% BMI 32.34 kg/m General: Stable, with no apparent distress. Neck: JVP 7cm @ 45deg. No carotid bruits. CV: RRR, S1 S2 normal, prominent mechanical click. Respiratory: Clear to posterior auscultation Extremities: Intact peripheral pulses. Integumentary: No lower extremity edema. I personally review the above studies and workup that includes ECGs, Echos, Cath reports, labs and heart rhythm monitors along with related images (if/as available) In addition to the above history and physical exam, the above plan and care goals address current medical problems and optimize control of cardiovascular risk factors to reduce the risk of future heart disease. Time was spent counseling and/or coordinating care for the patient, including discussion of the natural history of related disease, current treatment options, and future prognosis. I encourage lifestyle modifications including a heart healthy diet, exercise, blood pressure control and smoking cessation, if applicable, as well as general heart health/prevention. Thank you for our visit today. It's a privilege to be part of your care. Kaleb Eduardo MD, MPH Staff Inventory Representative [facility] [place] [address], [address] [place] [address] documented in this encounter [facility] 03-17-2023 Miscellaneous Notes [facility]tico[facility] Anticoagulation Episode Summary Anticoagulation Care Providers Provider Role Specialty Phone number Juan Willis MD Referring Cardiology [phone] Arsenio Villalobos is a 57 year old year old male patient being evaluated today for a Telemanagement visit. Patient is currently on the following anticoagulant(s) Warfarin. Labs PT INR (no units) Date Value 03/14/2022 1.4 biotel 10/12/2021 2.7 07/30/2021 3.6 biotel INR Home CoaguChek (no units) Date Value 03/15/2023 2.5 02/24/2023 2.5 02/01/2023 1.6 CrCl cannot be calculated (Patient's most recent lab result is older than the maximum 180 days allowed.). ALLERGIES Allergen Reactions Penicillins Unknown childhood Tegaderm Ag Mesh [S* Rash, Swelling Indication for Warfarin: Anticoagulation Episode Summary Current INR goal: 1.5-2.0 Assessment: INR result of 2.5 is SUPRAtherapeutic due to: Decreased vitamin k intake Plan: Current Warfarin Dosing As of 03/17/2023 Full warfarin instructions: 03/17: 5 mg; Otherwise 7.5 mg every Mon, Wed, Fri; 5 mg all other days Called and spoke to patient/caregiver Advised patient to decrease dose for 1 day only then resume weekly regimen Next INR check due on 03/31/2023 Patient verbalizes understanding of the plan. Melany Wright RPh Clinical Pharmacist, Pharmacy Anticoagulation Clinic Pharmacy Anticoagulation Clinic Pager: [phone]. documented in this encounter [facility] 02-25-2023 Miscellaneous Notes [facility] Anticoagulation Episode Summary Anticoagulation Care Providers Provider Role Specialty Phone number Juan Willis MD Referring Cardiology [phone] Arsenio Villalobos is a 57 year old year old male patient being evaluated today for a Telemanagement visit. Patient is currently on the following anticoagulant(s) Warfarin. Labs PT INR (no units) Date Value 03/14/2022 1.4 biotel 10/12/2021 2.7 07/30/2021 3.6 biotel INR Home CoaguChek (no units) Date Value 02/24/2023 2.5 02/01/2023 1.6 01/15/2023 1.6 Hemoglobin (g/dL) Date Value 06/12/2022 14.5 10/24/2020 15.2 Hematocrit (%) Date Value 06/12/2022 43.7 10/24/2020 46.6 Platelet Count (k/uL) Date Value 06/12/2022 188 10/24/2020 286 Creatinine (mg/dL) Date Value 06/12/2022 1.05 10/24/2020 1.18 09/22/2020 1.13 09/17/2020 0.94 Bilirubin, Total (mg/dL) Date Value 06/12/2022 0.4 10/24/2020 0.4 ALT (U/L) Date Value 06/12/2022 27 10/24/2020 19 AST (U/L) Date Value 06/12/2022 29 10/24/2020 24 CrCl cannot be calculated (Patient's most recent lab result is older than the maximum 180 days allowed.). ALLERGIES Allergen Reactions Penicillins Unknown childhood Tegaderm Ag Mesh [S* Rash, Swelling Indication for Warfarin: Anticoagulation Episode Summary Current INR goal: 1.5-2.0 Assessment: INR result of 2.5 is SUPRAtherapeutic due to: unknown cause - did not speak to patient Plan: Current Warfarin Dosing As of 02/25/2023 Full warfarin instructions: 02/25: 2.5 mg; Otherwise 7.5 mg every Mon, Wed, Fri; 5 mg all other days Left voice message Advised patient to decrease dose for 1 day only then resume weekly regimen as noted above Next home INR check scheduled on 03/11/2023 Lucita Alba RPh Clinical Pharmacist, Pharmacy Anticoagulation Clinic Pharmacy Anticoagulation Clinic Pager: [phone]. documented in this encounter [facility] 01-01-2023 Miscellaneous Notes [facility] Anticoagulation Episode Summary Anticoagulation Care Providers Provider Role Specialty Phone number Juan Willis MD Referring Cardiology [phone] Arsenio Villalobos is a 57 year old year old male patient being evaluated today for a Telemanagement visit. Patient is currently on the following anticoagulant(s) Warfarin. Labs PT INR (no units) Date Value 03/14/2022 1.4 biotel 10/12/2021 2.7 07/30/2021 3.6 biotel INR Home CoaguChek (no units) Date Value 12/31/2022 2.9 12/10/2022 2.5 11/21/2022 1.8 Hemoglobin (g/dL) Date Value 06/12/2022 14.5 10/24/2020 15.2 Hematocrit (%) Date Value 06/12/2022 43.7 10/24/2020 46.6 Platelet Count (k/uL) Date Value 06/12/2022 188 10/24/2020 286 Creatinine (mg/dL) Date Value 06/12/2022 1.05 10/24/2020 1.18 09/22/2020 1.13 09/17/2020 0.94 Bilirubin, Total (mg/dL) Date Value 06/12/2022 0.4 10/24/2020 0.4 ALT (U/L) Date Value 06/12/2022 27 10/24/2020 19 AST (U/L) Date Value 06/12/2022 29 10/24/2020 24 CrCl cannot be calculated (Patient's most recent lab result is older than the maximum 180 days allowed.). ALLERGIES Allergen Reactions Penicillins Unknown childhood Tegaderm Ag Mesh [S* Rash, Swelling Indication for Warfarin: Anticoagulation Episode Summary Current INR goal: 1.5-2.0 Assessment: INR result of 2.9 is SUPRAtherapeutic due to: Decreased vitamin k intake and not eating his normal amount due to illness. He is doing better now however. He was taking more tylenol lately also. He will try to increase his vitamin K back to normal. In the past, he was eating a salad at lunch. Plan: Current Warfarin Dosing As of 12/10/2022 Full warfarin instructions: 12/10: 2.5 mg; Otherwise 7.5 mg every Mon, Wed, Fri; 5 mg all other days Called and spoke to patient/caregiver Advised patient to decrease dose for 1 day only then resume weekly regimen Next home INR check scheduled on 01/14/23 Patient verbalizes understanding of the plan. Patient denies need for refills. Monalisa Melendez RPh Clinical Pharmacist, Pharmacy Anticoagulation Clinic Pharmacy Anticoagulation Clinic Pager: [phone]. documented in this encounter [facility] 12-10-2022 Miscellaneous Notes [facility] Anticoagulation Episode Summary Anticoagulation Care Providers Provider Role Specialty Phone number Juan Willis MD Referring Cardiology [phone] Arsenio Villalobos is a 57 year old year old male patient being evaluated today for a Telemanagement visit. Patient is currently on the following anticoagulant(s) Warfarin. Labs PT INR (no units) Date Value 03/14/2022 1.4 biotel 10/12/2021 2.7 07/30/2021 3.6 biotel INR Home CoaguChek (no units) Date Value 12/10/2022 2.5 11/21/2022 1.8 11/08/2022 2.4 Hemoglobin (g/dL) Date Value 06/12/2022 14.5 10/24/2020 15.2 Hematocrit (%) Date Value 06/12/2022 43.7 10/24/2020 46.6 Platelet Count (k/uL) Date Value 06/12/2022 188 10/24/2020 286 Creatinine (mg/dL) Date Value 06/12/2022 1.05 10/24/2020 1.18 09/22/2020 1.13 09/17/2020 0.94 Bilirubin, Total (mg/dL) Date Value 06/12/2022 0.4 10/24/2020 0.4 ALT (U/L) Date Value 06/12/2022 27 10/24/2020 19 AST (U/L) Date Value 06/12/2022 29 10/24/2020 24 CrCl cannot be calculated (Patient's most recent lab result is older than the maximum 180 days allowed.). ALLERGIES Allergen Reactions Penicillins Unknown childhood Tegaderm Ag Mesh [S* Rash, Swelling Indication for Warfarin: Anticoagulation Episode Summary Current INR goal: 1.5-2.0 Assessment: INR result of 2.5 is SUPRAtherapeutic due to: Decreased vitamin k intake Plan: Current Warfarin Dosing As of 12/10/2022 Full warfarin instructions: 12/10: 2.5 mg; Otherwise 7.5 mg every Mon, Wed, Fri; 5 mg all other days Called and spoke to patient/caregiver Advised patient to decrease dose for 1 day only then resume weekly regimen Next home INR check scheduled on 12/24/2022 Patient verbalizes understanding of the plan. Lucita Alba RPh Clinical Pharmacist, Pharmacy Anticoagulation Clinic Pharmacy Anticoagulation Clinic Pager: [phone]. documented in this encounter [facility] 11-21-2022 Miscellaneous Notes [facility] Anticoagulation Episode Summary Anticoagulation Care Providers Provider Role Specialty Phone number Juan Willis MD Referring Cardiology [phone] Arsenio Villalobos is a 57 year old year old male patient being evaluated today for a Telemanagement visit. Patient is currently on the following anticoagulant(s) Warfarin. Labs PT INR (no units) Date Value 03/14/2022 1.4 biotel 10/12/2021 2.7 07/30/2021 3.6 biotel INR Home CoaguChek (no units) Date Value 11/21/2022 1.8 11/08/2022 2.4 10/25/2022 2.3 Hemoglobin (g/dL) Date Value 06/12/2022 14.5 10/24/2020 15.2 Hematocrit (%) Date Value 06/12/2022 43.7 10/24/2020 46.6 Platelet Count (k/uL) Date Value 06/12/2022 188 10/24/2020 286 Creatinine (mg/dL) Date Value 06/12/2022 1.05 10/24/2020 1.18 09/22/2020 1.13 09/17/2020 0.94 Bilirubin, Total (mg/dL) Date Value 06/12/2022 0.4 10/24/2020 0.4 ALT (U/L) Date Value 06/12/2022 27 10/24/2020 19 AST (U/L) Date Value 06/12/2022 29 10/24/2020 24 CrCl cannot be calculated (Unknown ideal weight.). 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 Patient denies need for refills. Lydia Hanley [facility] Clinical Pharmacist, Pharmacy Anticoagulation Clinic Pharmacy Anticoagulation Clinic Pager: [phone]. documented in this encounter [facility] 11-10-2022 Discharge summary Note Date/Time November 10, 2022 2:54pm [facility] Medical Records Department [address] [place] [address] Emergency Department Summary 11/10/22 MR#: [id number] Acct: [id number] Name: ARSENIO VILLALOBOS Rep #:[id number] : 1965 57 From: Lavon Salgado DO PCP: Dr. Gilbert Vanegas MD Status:REG ER Location: ED HPI History of Present Illness Chief Complaint: Lower Extremity Injury Narrative Narrative: 57-year-old male presenting with right foot pain. He states that he dropped [employer] board on it yesterday. He has been ambulatory but walking on his right heel. He noticed some bruising and swelling today. No numbness or tingling. No lacerations or abrasions. 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 Palpitations Ventricular ectopy Home Medications bupropion HCl 150 mg tablet,12 hr sustained-release 150 mg PO BID 02/06/15 [History Last Taken 03/14/18] cetirizine 10 mg capsule 10 mg PO DAILY 02/06/15 [History Last Taken 03/14/18] aspirin 81 mg tablet,delayed release 81 mg PO DAILY 05/17/16 [History Last Taken 03/14/18] acetaminophen 325 mg tablet 650 mg PO Q4H PRN 10/10/20 [History Last Taken Unknown] pantoprazole 40 mg tablet,delayed release 40 mg PO DAILY 10/10/20 [History Last Taken Unknown] sennosides 8.6 mg-docusate sodium 50 mg tablet (Senna-S) 1 tab-cap PO BID PRN constipation 10/10/20 [History Last Taken Unknown] melatonin 5 mg tablet 5 mg PO HS 11/01/20 [History Last Taken Unknown] metoprolol succinate 100 mg tablet,extended release 24 hr 100 mg PO BID 01/30/21[History Last Taken Unknown] warfarin 5 mg tablet See Rx Instructions PO DAILY #135 tabs 11/05/21 [Rx Last Taken Unknown] Allergy/AdvReac Type Severity Reaction Status Date / Time Penicillins Allergy Unknown Verified 11/10/22 14:01 surgical tape Allergy Intermediate Swelling Uncoded 11/10/22 14:01 Family History Father Hypertension Alzheimer disease Mother Breast cancer Surgical History History of carpal tunnel release History of cholecystectomy (~2007) History of colonoscopy (~2015) History of esophageal dilatation (~09/2018) History of esophagogastroduodenoscopy (EGD) History of fusion of cervical spine History of mechanical aortic valve replacement (~09/12/20) History of vasectomy Social History Smoking Status: Former smoker Smokeless tobacco user: snuff alcohol intake: current details: occasional substance use type: does not use caffeine: Yes Type: coffee Number of servings: 2 ROS ROS ED Constitutional Constitutional ED: Denies chills, fever(s) or sweats Eyes Eyes: Denies blurry vision or change in vision ENT ENT ED: Denies ear pain or sore throat Cardiovascular Cardiovascular: Denies chest pain, palpitations or racing heartbeat Respiratory/Chest Respiratory/Chest: Denies cough, dyspnea or sputum Gastrointestinal Gastrointestinal: Denies abdominal pain, constipation, diarrhea, nausea or vomiting Genitourinary Genitourinary ED: Denies dysuria, hematuria or urinary frequency Musculoskeletal Musculoskeletal: Denies arthralgias, myalgias or neck pain Integumentary Reports other Details: Bruising and swelling of right foot ; Denies abscess or rash Neurologic Neurologic: Denies headache(s), paresthesias or weakness Psychiatric Psychiatric: Denies anxiety, depression, suicidal ideation or suicidal thoughts Endocrine Endocrinology: Denies polydipsia or polyuria EXAM Physical Exam Const Vital Signs: 11/10/22 14:02 Temperature 97.8 F Temperature Source Temporal Pulse Rate 97 Respiratory Rate 18 Blood Pressure 136/95 H Blood Pressure Mean 108 Pulse Ox 100 Oxygen Delivery Method Room Air Positive well nourished General Appearance ED: NAD HEENT normocephalic Resp normal respiratory effort and no retractions Cardio regular rate and regular rhythm Extremity Extremity Narrative: Tenderness to palpation dorsum of the right foot with noted edema, bruising on the lateral aspect diffusely. Neurovascular intact brisk cap refill to all 5 toes. There is pain at the base of the fifth metatarsal. No navicular pain. Neuro oriented x3 and CN's II-XII intact bilaterally Sensorium / Orientation: alert Motor Exam: strength 5/5 throughout Skin Skin Narrative: As described above MDM MDM MDM Narrative Medical decision making narrative: Presenting for evaluation of foot pain after dropping a board on his foot. Differential includes contusion, fracture. Patient declines analgesia. Will obtain a right foot x-ray. X-ray of the right foot on my interpretation shows no acute fracture or subluxation. The radiologist interprets this and agrees. Offered patient Tj wrap and crutches however he just wants the Tj wrap. I counseled him to ice and elevate. Return precautions were discussed. Impression: 1. Right foot contusion Lab Data Attestation: I reviewed the patient's lab results. Radiography Diagnostic Testing: Clinical Impression(s) from Imaging Studies Foot X-Ray 11/10/22 14:58 IMPRESSION: Soft tissue swelling of the dorsum of the foot. Electronically Signed: Jovi Her MD at 15:08 EDT Reading Location ID and State: [facility] / [place] , Service support , Discharge Plan Triage Chief Complaint: Lower Extremity Injury ED Provider: Lavon Salgado Dx/Rx/DC Orders Instructions: ED Foot Contusion Prescriptions: No Action acetaminophen 325 mg tablet 650 mg PO Q4H PRN sennosides-docusate sodium [Senna-S] 8.6-50 mg tablet 1 tab-cap PO BID PRN (Reason: constipation) pantoprazole 40 mg tablet,delayed release (DR/EC) 40 mg PO DAILY melatonin 5 mg tablet 5 mg PO HS metoprolol succinate 100 mg tablet extended release 24 hr 100 mg PO BID bupropion HCl 150 MG tablet sustained-release 12 hr 150 mg PO BID Patient Comments: MILD DEPRESSION cetirizine 10 MG capsule 10 mg PO DAILY Patient Comments: ALLERGIES aspirin 81 MG tablet,delayed release (DR/EC) 81 mg PO DAILY Patient Comments: WAS TOLD TO ASK ABOUT STOPPING warfarin 5 mg tablet See Rx Instructions PO DAILY Qty: 135 3RF Protocol: Dose Management Condition: Friday Dose/Route: 7.5 mg Instruction: 1.5 x 5 mg tablets Condition: Friday Dose/Route: 7.5 mg Instruction: 1.5 x 5 mg tablets Condition: Friday Dose/Route: 7.5 mg Instruction: 1.5 x 5 mg tablets Condition: Friday Dose/Route: 7.5 mg Instruction: 1.5 x 5 mg tablets Condition: Dose/Route: 7.5 mg Instruction: 1.5 x 5 mg tablets Condition: Friday Dose/Route: 7.5 mg Instruction: 1.5 x 5 mg tablets Condition: Friday Dose/Route: 7.5 mg Instruction: 1.5 x 5 mg tablets Protocol Text: Adjustment Start Date: 05/31/21 INR Value: 1.9 INR Date: 05/31/21 Recheck Date: 06/28/21 Rx Instructions: 7.5 mg a day Primary Care Provider: Gilbert Vanegas Referrals: Gilbert Vanegas MD [Primary Care Provider] - Disposition Disposition: Home, Self Care What to do if you have Problems For any increased pain, shortness of breath, bleeding, nausea or vomiting, chestpain, or any unexpected problems, contact your Primary Care Provider. Call [facility] ([phone]) or report to the closest Emergency Room. Call 911 if necessary. 11/10/22 1513 <Electronically signed by Lavon Salgado DO> Cosigner Signature (if applicable): CC: Dr. Gilbert Vanegas MD ~ Signed [facility] Work Phone: 1(679) 547-555107-10-2023 Miscellaneous Notes* Telephone Encounter - Manuel Day, [facility] - 10/28/2022 8:00 AM EDT Hello! Patient contacted our pharmacy for a refill on his Wegovy. However, the patient indicated that he is likely due for an increase to the 1.7mg strength. Is this correct? And, if so, can a new eRx be sent to [facility] Home Delivery Pharmacy for us to fill? Thank you! Manuel Day, PharmD, [facility] (T) [phone] (F) [phone] [facility] Miscellaneous Notes* Telephone Encounter - Nikolai Cerna [facility] - 10/25/2022 2:01 PM EDT [facility] Anticoagulation Episode Summary Anticoagulation Care Providers Provider Role Specialty Phone number Juan Willis MD Referring Cardiology [phone] Arsenio Villalobos is a 57 year old year old male patient being evaluated today for a Telemanagement visit. Patient is currently on the following anticoagulant(s) Warfarin. Labs PT INR (no units) Date Value 03/14/2022 1.4 biotel 10/12/2021 2.7 07/30/2021 3.6 biotel INR Home CoaguChek (no units) Date Value 10/25/2022 2.3 10/04/2022 1.5 09/13/2022 1.5 Hemoglobin (g/dL) Date Value 06/12/2022 14.5 10/24/2020 15.2 Hematocrit (%) Date Value 06/12/2022 43.7 10/24/2020 46.6 Platelet Count (k/uL) Date Value 06/12/2022 188 10/24/2020 286 Creatinine (mg/dL) Date Value 06/12/2022 1.05 10/24/2020 1.18 09/22/2020 1.13 09/17/2020 0.94 Bilirubin, Total (mg/dL) Date Value 06/12/2022 0.4 10/24/2020 0.4 ALT (U/L) Date Value 06/12/2022 27 10/24/2020 19 AST (U/L) Date Value 06/12/2022 29 10/24/2020 24 CrCl cannot be calculated (Unknown ideal weight.). 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 documented in this encounterFlower Hospital06-30-2023 Miscellaneous Notes* Telephone Encounter - Monalisa Melendez RPh - 10/18/2022 1:38 PM EDT Patient was due to test INR today will continue to monitor for results. Monalisa Melendez PharmD Pharmacy Anticoagulation Clinic documented in this encounterFlower Hospital05-05-2023 Miscellaneous Notes* Telephone Encounter - Drew Reyes - 08/23/2022 10:52 AM EDT Patient called to check status. States that he's to take the next dosage of Wegovy this weekend and is out of refills. Re-routing as high priority. Drew Reyes August 23, 2022 10:53 AM * Telephone Encounter - Drew Reyes - 08/22/2022 9:00 AM EDT Images from the original note were not included. Patient needs refill of Semaglutide 0.5mg/.5ml pen injector. Medication is not listed in patient's current medication list, so unable to create refill request. Please update medication list to include medication above. Please forward a refill request to Dr. Willis to: [facility] [address] [place], [place] - [phone] Thank you! Drew Reyes August 22, 2022 9:47 AM documented in this encounterFlower Hospital04-28-2023 Miscellaneous Notes* Telephone Encounter - Nikolai Cerna RP - 2022 2:20 PM EDT Patient due to test INR today. Will continue to monitor for results. Nikolai Cerna RPh documented in this encounterFlower Hospital03-31-2023 Miscellaneous Notes* Telephone Encounter - Nikolai Cerna RPh - 07/19/2022 9:58 AM EDT [facility] Anticoagulation Episode Summary Anticoagulation Care Providers Provider Role Specialty Phone number Juan Willis MD Referring Cardiology [phone] Arsenio Villalobos is a 56 year old year old male patient being evaluated today for a Telemanagement visit. Patient is currently on the following anticoagulant(s) Warfarin. Labs PT INR (no units) Date Value 03/14/2022 1.4 biotel 10/12/2021 2.7 07/30/2021 3.6 biotel INR Home CoaguChek (no units) Date Value 07/18/2022 2.2 06/27/2022 1.8 06/13/2022 2.9 Hemoglobin (g/dL) Date Value 06/12/2022 14.5 10/24/2020 15.2 Hematocrit (%) Date Value 06/12/2022 43.7 10/24/2020 46.6 Platelet Count (k/uL) Date Value 06/12/2022 188 10/24/2020 286 Creatinine (mg/dL) Date Value 06/12/2022 1.05 10/24/2020 1.18 09/22/2020 1.13 09/17/2020 0.94 Bilirubin, Total (mg/dL) Date Value 06/12/2022 0.4 10/24/2020 0.4 ALT (U/L) Date Value 06/12/2022 27 10/24/2020 19 AST (U/L) Date Value 06/12/2022 29 10/24/2020 24 Estimated Creatinine Clearance: 93.9 mL/min (based on SCr of 1.05 mg/dL). 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 documented in this encounterFlower Hospital03-30-2023 Miscellaneous Notes* Telephone Encounter - Orestes Choi RPh - 07/18/2022 11:33 AM EDT Pharmacist Refill Authorization Review Name: Arsenio Villalobos Date: 07/18/2022 Time: 11:33 AM Refill authorization request(s) received via patient request and reviewed under effective consult agreement. Upon review, did confirm that an active patient- provider relationship exists and that the prescriber is a participating physician under the consult agreement. Last office visit in this department: 06/12/2022 Juan Willis MD Last distance health visit in this department: Visit date not found Next appointment in this department: Visit date not found The medication(s) fall under the following categories: Category 3: Medication(s) does not qualify for pharmacist renewal due to no consent present. Renewal request sent to provider for review. Requested Prescriptions Pending Prescriptions Disp Refills semaglutide, weight loss, (WEGOVY) 0.5 mg/0.5 mL pen injector 2 mL 0 Sig: Inject 0.5 mL subcutaneously one time a week for 28 days. Number of refills approved in this encounter: 0 Number of refills forwarded to provider for review: 1 Number of refills denied in this encounter: 0 Orestes Choi RPh documented in this encounterFlower Hospital03-09-2023 Miscellaneous Notes* Telephone Encounter - Lydia Hanley RPh - 06/27/2022 8:39 AM EST [facility] Anticoagulation Episode Summary Anticoagulation Care Providers Provider Role Specialty Phone number Juan MD Alba Referring Cardiology [phone] Arsenio Villalobos is a 56 year old year old male patient being evaluated today for a Telemanagement visit. Patient is currently on the following anticoagulant(s) Warfarin. Labs PT INR (no units) Date Value 03/14/2022 1.4 biotel 10/12/2021 2.7 07/30/2021 3.6 biotel INR (no units) Date Value 06/12/2022 2.8 INR Home CoaguChek (no units) Date Value 06/27/2022 1.8 06/13/2022 2.9 05/28/2022 1.3 Hemoglobin (g/dL) Date Value 06/12/2022 14.5 10/24/2020 15.2 Hematocrit (%) Date Value 06/12/2022 43.7 10/24/2020 46.6 Platelet Count (k/uL) Date Value 06/12/2022 188 10/24/2020 286 Creatinine (mg/dL) Date Value 06/12/2022 1.05 10/24/2020 1.18 09/22/2020 1.13 09/17/2020 0.94 Bilirubin, Total (mg/dL) Date Value 06/12/2022 0.4 10/24/2020 0.4 ALT (U/L) Date Value 06/12/2022 27 10/24/2020 19 AST (U/L) Date Value 06/12/2022 29 10/24/2020 24 Estimated Creatinine Clearance: 93.9 mL/min (based on SCr of 1.05 mg/dL). ALLERGIES Allergen Reactions Penicillins Unknown childhood Tegaderm Ag Mesh [S* Rash, Swelling Indication for Warfarin: detention current use of anticoagulant H/o mechanical aortic valve replacement Anticoagulation Episode Summary Current INR goal: 1.5-2.0 Assessment: INR result of 1.8 is therapeutic Plan: Current Warfarin Dosing As of 06/27/2022 Full warfarin instructions: 7.5 mg every Mon, Wed, Fri; 5 mg all other days Sent [employer] message Advised patient to continue current weekly dose as noted above Next home INR check scheduled on 07/11/2022 Lydia Hanley RPh Clinical Pharmacist, Pharmacy Anticoagulation Clinic Pharmacy Anticoagulation Clinic Pager: [phone]. documented in this encounterFlower Hospital03-07-2023 Miscellaneous Notes* Telephone Encounter - Drew Reyes - 06/25/2022 2:35 PM EST Images from the original note were not included. Rec'vd via mail copy of letter regarding denial of coverage for Ozempic (0.25 or 0.5 MG/DOSE) 2MG/1.5ML pen-injectors. From Tel Encounter dated 06/13/22, this was sent by the pharmacy to Dr. Willis. Dr. Willis prescribed another medication. Letter scanned to [employer] and saved on Dr. Willis OPD folder. Drew Reyes June 25, 2022 2:39 PM documented in this encounterFlower Hospital03-03-2023 Miscellaneous Notes* Telephone Encounter - Jennifer Da Silva RN - 06/21/2022 10:01 AM EST Rudy Rodriguez Tell him we will try Wegovy instead, but I think it will also be denied If that is the case, then no need to change anything in his medications other than coumadin dose per coumadin clinic Thanks Juan Message pt with above. Jennifer Da Silva RN documented in this encounterFlower Hospital02-28-2023 Miscellaneous Notes* Telephone Encounter - Tara Triplett RN - 06/18/2022 10:01 AM EST Images from the original note were not included. Ambulatory Pharmacy Prior Authorization Note Provider Intervention Required?: No- Pharmacy completed on your behalf. Rx Plan: Other: anthem Drug: Ozempic (0.25 or 0.5 MG/DOSE) 2MG/1.5ML pen-injectors Cover My Meds Rider: [id number] Determination: Denied PA Denied because: Medical necessity not met Prior Authorization/Case #: [id number] Prior Authorization Expiration: n/a Time to PA Submission in CMM: 15 min Time to PA Determination in CMM: 1 day Additional Information: Full letter scanned into chart for reference, please review letter for fulldetails. No further action by [facility] Home Delivery Pharmacy for now and existing order to be profiled. Tara Triplett RN [facility] P: , F: For questions relating to this submission, please contact [facility] [phone] * Telephone Encounter - Tara Triplett RN - 06/13/2022 12:32 PM EST [facility] received prescription(s) for Ozempic (0.25 or 0.5 MG/DOSE) 2MG/1.5ML pen-injectors . Benefits investigation was conducted, indicating that a prior authorization is required. PA was initiated and pending review through [employer]. All pertinent clinical information was submitted to insurance. CMM Rider: [id number] Ordering Provider: MD Uziel Acosta Alisha, RN [facility] P: , F: documented in this encounterFlower Hospital02-23-2023 History of Present illness Narrative* Juan Willis MD - 06/13/2022 11:00 AM EST Images from the original note were not included. [facility] [place] Trevor Velazquez Department of Cardiovascular Medicine SECTION OF CLINICAL CARDIOLOGY OUTPATIENT VISIT DATE June 12, 2022 OUTPATIENT VISIT TYPE ESTABLISHED PRIMARY CARE PHYSICIAN: Gilbert Vanegas ([facility]) [address] [place] [address] CHIEF COMPLAINT: Follow up HISTORY OF PRESENT ILLNESS: Mr. Villalobos is a 56 year old male who presents today for a cardiovascular medicine follow-up visit. I last saw the patient in clinic one year ago He has history of hypertension, bicuspid aortic valve and severe aortic stenosis S/P SAVR with mechanical valve in 08/2020 ON-X He reports he is doing fine, with no new symptoms Follows INR with home machine and [facility] coumadin clinic, numbers have been low recently (<1.5 which is the target for him) and he increased the dose recently Blood pressure not well controlled on losartan 50 mg Taking baby aspirin Interested in pharmacological treatment of obesity such as Semaglutide He denies chest pain, shortness of breath, orthopnea, cough, edema, palpitations, PND, lightheadedness or syncope. PAST MEDICAL HISTORY Diagnosis Date Allergic rhinitis, cause unspecified Aortic valve stenosis Dysphagia 02/06/2015 Hiatal hernia 02/06/2015 HTN (hypertension) Other specified disorder of gallbladder Reflux esophagitis 02/06/2015 PAST SURGICAL HISTORY Procedure Laterality Date COLONOSCOPY FLX DX W/COLLJ SPEC WHEN PFRMD 11/11/2012 Colonoscopy inpt [facility] ESOPHAGOGASTRODUODENOSCOPY TRANSORAL DIAGNOSTIC 11/11/2012 [facility] H-pylori negative GASTROESOPHAG REFLX TEST W/TELEMTRY PH ELTRD 02/06/2015 LAPS SURG CHOLECYSTECTOMY W/CHOLANGIOGRAPHY 10/28/2007 PAST SURGICAL HISTORY OF 04/21/2008 2 cervical disc fusion PAST SURGICAL HISTORY OF Bilateral hand, carpal tunnel PAST SURGICAL HISTORY OF Right shoulder PAST SURGICAL HISTORY OF 09/12/2020 AVR [place] PAST SURGICAL HISTORY OF 03/2020 urolift -prostate PILONIDAL CYST/SINUS EXCISION RDCTJ TORSION TSTIS W/WO FIXJ CLAT TESTIS 14 years old TONSILLECTOMY & ADENOIDECTOMY <AGE 12 VASECTOMY VASECTOMY UNI/BI SPX W/POSTOP SEMEN EXAMS SOCIAL HISTORY Social History Tobacco Use Smoking status: Former Types: Cigarettes Quit date: 12/31/2000 Years since quittin.4 Smokeless tobacco: Former Types: Chew Quit date: 09/11/2020 Vaping Use Vaping Use: Never used Substance Use Topics Alcohol use: Not Currently Comment: a couple of beers a day Drug use: No FAMILY HISTORY Problem Relation Age of Onset Breast Cancer Mother Hypertension Father Alzheimer's Disease Father No Known Problems Maternal Grandmother No Known Problems Maternal Grandfather Parkinson s Disease Paternal Grandmother No Known Problems Paternal Grandfather Colon Cancer No Family History ALLERGIES: ALLERGIES Allergen Reactions Penicillins Unknown childhood Tegaderm Ag Mesh [S* Rash, Swelling MEDICATIONS: tamsulosin (FLOMAX) 0.4 mg Take 0.4 mg by mouth once daily. metoprolol succinate ER (TOPROL XL) 100 mg Take 1 tablet by mouth once daily. warfarin (COUMADIN) 5 mg tablet 7.5 mg every Mon, Fri; 5 mg all other days (Patient taking differently: 7.5 mg every Mon, Wed, Friday, 5 mg all other days) pantoprazole DR (PROTONIX) 40 mg tablet Take 1 tablet by mouth as needed. aspirin 81 mg chewable tablet 1 tablet by ORAL/FEEDING TUBE route once daily. MELATONIN ORAL Take 5 mg by mouth at bedtime as needed. buPROPion SR (ZYBAN SR; WELLBUTRIN SR) 150 mg 12 hr tablet Take by mouth twice daily. p-ephed hcl/cetirizine hcl(ZYRTEC-D 5 MG-120 MG 12 HR TAB) Take one(1) tablet two(2) times daily. ALBUTEROL 90 MCG/ACTUATION AEROSOL INHALER Inhale one(1) - two(2) puffs four(4) times a day as needed for wheezing and shortness of breath. semaglutide (OZEMPIC) 0.25 mg or 0.5 mg(2 mg/1.5 mL) pen Inject 0.25 mg subcutaneously one time a week. losartan (COZAAR) 100 mg tablet Take 1 tablet by mouth once daily. PHYSICAL EXAMINATION: BP 148/89 (BP Site: Left Arm) Pulse 94 Ht 175.3 cm (5' 9) Wt 105.2 kg (232 lb) BMI 34.26 kg/m General: Well appearing, in no acute distress. Skin: No clubbing, no cyanosis. Eyes: Extra ocular movements intact Neck: No jugular venous distention, no carotid bruits, carotids have a normal upstroke, no palpablethyromegaly. Lungs: Clear to auscultation bilaterally, no wheezing or rhonchi. Heart: Regular rhythm, PMI not displaced, normal S1, metallic S2 , no S3, no S4, no heaves, no rub and no murmur. Extremities: No peripheral edema . Grade 2/4 distal pulses bilaterally. Neuro: Oriented to person, place and time, alert, cooperative, gait coordinated. CARDIOVASCULAR MEDICINE TESTING: EKG 06/12/2022 Normal sinus rhythm I have personally reviewed the Electrocardiogram. IMPRESSION: Mr. Villalobos is a 56 year old male with Hypertension on losartan 50 mg, not well controlled, will increase to losartan 100 mg Obesity, interested in semaglutide, will start ozempic 0.25 mg weekly injection and he will follow with PCP Bicuspid AV and severe S/P mechanical SAVR ON-X, on coumadin, INR target 1.5- 2.5, recently increased coumadin dose, on baby aspirin, echo last year valve well functioning, aware of bacterial prophylaxis PLAN AND RECOMMENDATIONS: Check INR Check CBC, lipid panel, CMP Continue baby aspirin and coumadin Continue metoprolol succinate 100 mg Increase losartan to 100 mg Start ozempic and follow with PCP Follow with cardiology in one year CONTACT INFORMATION: Juan Willis MD MSc FACC Section of Clinical Cardiology, Heart and Vascular [place]. [address] [place] [address] 06/13/2022 11:27 AM documented in this encounterFlower Hospital02-23-2023 Miscellaneous Notes* Telephone Encounter - Lydia Hanley [facility] - 06/13/2022 8:27 AM EST [facility] Anticoagulation Episode Summary Anticoagulation Care Providers Provider Role Specialty Phone number Juan Willis MD Referring Cardiology [phone] Arsenio Villalobos is a 56 year old year old male patient being evaluated today for a Telemanagement visit. Patient is currently on the following anticoagulant(s) Warfarin. Labs PT INR (no units) Date Value 03/14/2022 1.4 biotel 10/12/2021 2.7 07/30/2021 3.6 biotel INR (no units) Date Value 06/12/2022 2.8 INR Home CoaguChek (no units) Date Value 06/13/2022 2.9 05/28/2022 1.3 05/17/2022 1.3 Hemoglobin (g/dL) Date Value 06/12/2022 14.5 10/24/2020 15.2 Hematocrit (%) Date Value 06/12/2022 43.7 10/24/2020 46.6 Platelet Count (k/uL) Date Value 06/12/2022 188 10/24/2020 286 Creatinine (mg/dL) Date Value 06/12/2022 1.05 10/24/2020 1.18 09/22/2020 1.13 09/17/2020 0.94 Bilirubin, Total (mg/dL) Date Value 06/12/2022 0.4 10/24/2020 0.4 ALT (U/L) Date Value 06/12/2022 27 10/24/2020 19 AST (U/L) Date Value 06/12/2022 29 10/24/2020 24 Estimated Creatinine Clearance: 93.9 mL/min (based on SCr of 1.05 mg/dL). ALLERGIES Allergen Reactions Penicillins Unknown childhood Tegaderm Ag Mesh [S* Rash, Swelling Indication for Warfarin: detention current use of anticoagulant H/o mechanical aortic valve replacement Anticoagulation Episode Summary Current INR goal: 1.5-2.0 Assessment: INR result of 2.9 is SUPRAtherapeutic due to: Alcohol consumption and Decreased vitamin k intake Patient on vacation for more than a week and diet different. Plan: Current Warfarin Dosing As of 06/11/2022 Full warfarin instructions: 06/13: Hold; Otherwise 7.5 mg every Mon, Wed, Fri; 5 mg all other days Called and spoke to patient/caregiver Advised patient to hold 1 dose then continue current regimen Next home INR check scheduled on 06/27/2022 Patient verbalizes understanding of the plan. Patient denies need for refills. Lydia Hanley [facility] Clinical Pharmacist, Pharmacy Anticoagulation Clinic [facility] Pager: [phone]. * Telephone Encounter - Lucita Alba RP - 06/11/2022 10:40 AM EST Patient due to test INR today. Will continue to monitor for results. Lucita Alba [facility] documented in this encounterFlower Hospital02-07-2023 Miscellaneous Notes* Telephone Encounter - Krysta Bacon (Crna) - 05/28/2022 9:34 AM EST PATIENT CALL Received call from July with [employer] [facility] to report home meter result for patient. [facility] has already addressed this result (see below); nothing further needed at this time. Krysta Bacon CPhT (Mucking Machine Operator) [facility]acy [facility] * Telephone Encounter - Lucita Alba RP - 05/28/2022 8:48 AM EST [facility] Anticoagulation Episode Summary Anticoagulation Care Providers Provider Role Specialty Phone number Juan Willis MD Referring Cardiology [phone] Arsenio Villalobos is a 56 year old year old male patient being evaluated today for a Telemanagement visit. Patient is currently on the following anticoagulant(s) Warfarin. Labs PT INR (no units) Date Value 03/14/2022 1.4 biotel 10/12/2021 2.7 07/30/2021 3.6 biotel INR Home CoaguChek (no units) Date Value 05/28/2022 1.3 05/17/2022 1.3 04/29/2022 1.3 Hemoglobin (g/dL) Date Value 10/24/2020 15.2 Hematocrit (%) Date Value 10/24/2020 46.6 Platelet Count (k/uL) Date Value 10/24/2020 286 Creatinine (mg/dL) Date Value 10/24/2020 1.18 09/22/2020 1.13 09/17/2020 0.94 Bilirubin, Total (mg/dL) Date Value 10/24/2020 0.4 ALT (U/L) Date Value 10/24/2020 19 AST (U/L) Date Value 10/24/2020 24 CrCl cannot be calculated (Patient's most recent lab result is older than the maximum 180 days allowed.). ALLERGIES Allergen Reactions Penicillins Unknown childhood Tegaderm Ag Mesh [S* Rash, Swelling Indication for Warfarin: Anticoagulation Episode Summary Current INR goal: 1.5-2.0 Assessment: INR result of 1.3 is SUBtherapeutic due to: unknown cause - did not speak to patient Plan: Current Warfarin Dosing As of 05/28/2022 Full warfarin instructions: 7.5 mg every Mon, Wed, Fri; 5 mg all other days Left voice message Advised patient to increase total weekly regimen as noted above. Next home INR check scheduled on 06/11/2022 Lucita Alba RPh Clinical Pharmacist, Pharmacy Anticoagulation Clinic Pharm[facility] Pager: [phone]. documented in this encounterFlower Hospital01-27-2023 Miscellaneous Notes* Telephone Encounter - Nikolai Cerna RPh - 05/17/2022 11:56 AM EST [facility] Anticoagulation Episode Summary Anticoagulation Care Providers Provider Role Specialty Phone number Juan Willis MD Referring Cardiology [phone] Arsenio Villalobos is a 56 year old year old male patient being evaluated today for a Telemanagement visit. Patient is currently on the following anticoagulant(s) Warfarin. Labs PT INR (no units) Date Value 03/14/2022 1.4 biotel 10/12/2021 2.7 07/30/2021 3.6 biotel INR Home CoaguChek (no units) Date Value 05/17/2022 1.3 04/29/2022 1.3 04/11/2022 1.6 Hemoglobin (g/dL) Date Value 10/24/2020 15.2 Hematocrit (%) Date Value 10/24/2020 46.6 Platelet Count (k/uL) Date Value 10/24/2020 286 Creatinine (mg/dL) Date Value 10/24/2020 1.18 09/22/2020 1.13 09/17/2020 0.94 Bilirubin, Total (mg/dL) Date Value 10/24/2020 0.4 ALT (U/L) Date Value 10/24/2020 19 AST (U/L) Date Value 10/24/2020 24 CrCl cannot be calculated (Patient's most recent lab result is older than the maximum 180 days allowed.). ALLERGIES Allergen Reactions Penicillins Unknown childhood Tegaderm Ag Mesh [S* Rash, Swelling Indication for Warfarin: detention current use of anticoagulant H/o mechanical aortic valve replacement Anticoagulation Episode Summary Current INR goal: 1.5-2.0 Assessment: INR result of 1.3 is SUBtherapeutic due to: No obvious cause Plan: Current Warfarin Dosing As of 05/17/2022 Full warfarin instructions: 05/18: 7.5 mg; Otherwise 7.5 mg every Mon, Fri; 5 mg all other days; Starting 05/17/2022 Called and spoke to patient/caregiver Advised patient to increase dose for 1 day only then resume weekly regimen Next home INR check scheduled on 05/31/2022 Patient verbalizes understanding of the plan. Patient denies need for refills. Nikolai Cerna RPh Clinical Pharmacist, Pharmacy Anticoagulation Clinic Pharmacy [facility] Pager: [phone]. documented in this encounterFlower Hospital01-23-2023 Miscellaneous Notes* Telephone Encounter - Melany Wright RPh - 05/13/2022 4:09 PM EST Patient was due to test INR today. Will continue to monitor for results. documented in this encounterFlower Hospital01-12-2023 Miscellaneous Notes* Telephone Encounter - Lydia Hanley [facility] - 05/02/2022 2:41 PM EST Spoke to patient Doxycycline 100mg twice daily for 5 days will be starting today. [place] course and not a high d-d interaction with warfarin . Patient advised to take warfarin 7.5 mg x1(05/02) then resume previous dosage. Pt verbalized understanding. Lydia Hanley, PharmD., CACP * Telephone Encounter - Moe García (GIVTED) - 05/02/2022 2:08 PM EST PATIENT CALL Patient called call center regarding question. Patient did not receive 04/29/2022 message with results and patient has been taking normal dosing of 7.5 mg Mon/Fri, and 5 mg all other days. Patient prescribed doxycycline today for sinus infection. Patient does not know the strength but isto take twice a day. PT INR (no units) Date Value 03/14/2022 1.4 biotel 10/12/2021 2.7 07/30/2021 3.6 biotel INR Home CoaguChek (no units) Date Value 04/29/2022 1.3 04/11/2022 1.6 03/29/2022 1.6 Patient can be reached at [phone] and stated we may leave a detailed message if needed and communicate via [employer]. Moe García (GIVTED) documented in this encounterFlower Hospital01-09-2023 Miscellaneous Notes* Telephone Encounter - Melany Wright [facility] - 04/29/2022 11:09 AM EST [facility] Anticoagulation Episode Summary Anticoagulation Care Providers Provider Role Specialty Phone number Juan Willis MD Referring Cardiology [phone] Arsenio Villalobos is a 56 year old year old male patient being evaluated today for a Telemanagement visit. Patient is currently on the following anticoagulant(s) Warfarin. Labs PT INR (no units) Date Value 03/14/2022 1.4 biotel 10/12/2021 2.7 07/30/2021 3.6 biotel INR Home CoaguChek (no units) Date Value 04/29/2022 1.3 04/11/2022 1.6 03/29/2022 1.6 CrCl cannot be calculated (Patient's most recent lab result is older than the maximum 180 days allowed.). 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 Melany Wright RPh Clinical Pharmacist, Pharmacy Anticoagulation Clinic Pharm[facility] Pager: [phone] * Telephone Encounter - Krysta Bacon (Crna) - 04/29/2022 10:45 AM EST PATIENT CALL Received call from [place] with [employer] [facility] for patient. Patient tested on 04/29 with an out of range INR result of 1.3. PT INR (no units) Date Value 03/14/2022 1.4 biotel 10/12/2021 2.7 07/30/2021 3.6 biotel INR Home CoaguChek (no units) Date Value 04/29/2022 1.3 04/11/2022 1.6 03/29/2022 1.6 Krysta Bacon (Crna) Pharmacy Anticoagulation Clinic * Telephone Encounter - Lydia Hanley [facility] - 04/26/2022 3:14 PM EST Patient due to test INR today. Will continue to monitor for results. [facility] documented in this encounterFlower Hospital12-22-2022 Miscellaneous Notes* Telephone Encounter - Monalisa Melendez [facility] - 04/11/2022 11:09 AM EST [employer] message sent for therapeutic INR result. documented in this encounterFlower Hospital11-25-2022 Miscellaneous Notes* Telephone Encounter - Rae Boykin [facility] - 03/15/2022 9:24 AM EST [facility] Anticoagulation Episode Summary Anticoagulation Care Providers Provider Role Specialty Phone number Juan Willis MD Referring Cardiology [phone] Arsenio Villalobos is a 56 year old year old male patient being evaluated today for a Telemanagement visit. Patient is currently on the following anticoagulant(s) Warfarin. Labs PT INR (no units) Date Value 03/14/2022 1.4 biotel 10/12/2021 2.7 07/30/2021 3.6 biotel INR Home CoaguChek (no units) Date Value 02/28/2022 1.2 02/07/2022 2.7 01/22/2022 1.2 Hemoglobin (g/dL) Date Value 10/24/2020 15.2 Hematocrit (%) Date Value 10/24/2020 46.6 Platelet Count (k/uL) Date Value 10/24/2020 286 Creatinine (mg/dL) Date Value 10/24/2020 1.18 09/22/2020 1.13 09/17/2020 0.94 Bilirubin, Total (mg/dL) Date Value 10/24/2020 0.4 ALT (U/L) Date Value 10/24/2020 19 AST (U/L) Date Value 10/24/2020 24 CrCl cannot be calculated (Patient's most recent lab result is older than the maximum 180 days allowed.). ALLERGIES Allergen Reactions Penicillins Unknown childhood Tegaderm Ag Mesh [S* Rash, Swelling Indication for Warfarin: detention current use of anticoagulant H/o mechanical aortic valve replacement Anticoagulation Episode Summary Current INR goal: 1.5-2.0 Assessment: INR result of 1.4 biotel is SUBtherapeutic due to: No obvious cause Patient denies missed doses, change in tablet appearance, increased intake of green vegetables, liver, V8 juice, or protein supplements. Plan: Current Warfarin Dosing As of 03/15/2022 Full warfarin instructions: 03/15: 10 mg; Otherwise 7.5 mg every Mon, Fri; 5 mg all other days; Starting 03/15/2022 Called and spoke to patient/caregiver Advised patient to increase dose for 1 day only then resume weekly regimen Next home INR check scheduled on 03/28/2022 Patient verbalizes understanding of the plan. Patient denies need for refills. Rae Boykin RPh Clinical Pharmacist, Pharmacy Anticoagulation Clinic Pharmacy An[facility] Pager: [phone]. documented in this encounterFlower Hospital11-11-2022 Miscellaneous Notes* Telephone Encounter - Nikolai Cerna RPh - 03/01/2022 9:35 AM EST [facility] Anticoagulation Episode Summary Anticoagulation Care Providers Provider Role Specialty Phone number Juan Willis MD Referring Cardiology [phone] Arsenio Villalobos is a 56 year old year old male patient being evaluated today for a Telemanagement visit. Patient is currently on the following anticoagulant(s) Warfarin. Labs PT INR (no units) Date Value 10/12/2021 2.7 07/30/2021 3.6 biotel 07/16/2021 3.3 INR Home CoaguChek (no units) Date Value 02/28/2022 1.2 02/07/2022 2.7 01/22/2022 1.2 Hemoglobin (g/dL) Date Value 10/24/2020 15.2 Hematocrit (%) Date Value 10/24/2020 46.6 Platelet Count (k/uL) Date Value 10/24/2020 286 Creatinine (mg/dL) Date Value 10/24/2020 1.18 09/22/2020 1.13 09/17/2020 0.94 Bilirubin, Total (mg/dL) Date Value 10/24/2020 0.4 ALT (U/L) Date Value 10/24/2020 19 AST (U/L) Date Value 10/24/2020 24 CrCl cannot be calculated (Patient's most recent lab result is older than the maximum 180 days allowed.). ALLERGIES Allergen Reactions Penicillins Unknown childhood Tegaderm Ag Mesh [S* Rash, Swelling Indication for Warfarin: detention current use of anticoagulant H/o mechanical aortic valve replacement Anticoagulation Episode Summary Current INR goal: 1.5-2.0 Assessment: INR result of 1.2 is SUBtherapeutic due to: Increased vitamin k intake Plan: Current Warfarin Dosing As of 03/01/2022 Full warfarin instructions: 03/02: 7.5 mg; Otherwise 7.5 mg every Mon, Fri; 5 mg all other days Called and spoke to patient/caregiver Advised patient to increase dose for 1 day only then resume weekly regimen Next home INR check scheduled on 03/15/2022 Patient verbalizes understanding of the plan. Patient denies need for refills. Nikolai Cerna RPh Clinical Pharmacist, Pharmacy Anticoagulation Clinic Pharmacy An[facility] Pager: [phone]. documented in this encounterFlower Hospital11-04-2022 Miscellaneous Notes* Telephone Encounter - Nikolai Cerna RPh - 02/22/2022 4:28 PM EDT Patient due to test INR today. Will continue to monitor for results. Nikolai Cerna RPh documented in this encounterFlower Hospital10-21-2022 Miscellaneous Notes* Telephone Encounter - Nikolai Cerna RPh - 02/08/2022 1:28 PM EDT [facility] Anticoagulation Episode Summary Anticoagulation Care Providers Provider Role Specialty Phone number Juan Willis MD Referring Cardiology [phone] Arsenio Villalobos is a 56 year old year old male patient being evaluated today for a Telemanagement visit. Patient is currently on the following anticoagulant(s) Warfarin. Labs PT INR (no units) Date Value 10/12/2021 2.7 07/30/2021 3.6 biotel 07/16/2021 3.3 INR Home CoaguChek (no units) Date Value 02/07/2022 2.7 01/22/2022 1.2 01/08/2022 1.6 Hemoglobin (g/dL) Date Value 10/24/2020 15.2 Hematocrit (%) Date Value 10/24/2020 46.6 Platelet Count (k/uL) Date Value 10/24/2020 286 Creatinine (mg/dL) Date Value 10/24/2020 1.18 09/22/2020 1.13 09/17/2020 0.94 Bilirubin, Total (mg/dL) Date Value 10/24/2020 0.4 ALT (U/L) Date Value 10/24/2020 19 AST (U/L) Date Value 10/24/2020 24 CrCl cannot be calculated (Patient's most recent lab result is older than the maximum 180 days allowed.). ALLERGIES Allergen Reactions Penicillins Unknown childhood Tegaderm Ag Mesh [S* Rash, Swelling Indication for Warfarin: detention current use of anticoagulant H/o mechanical aortic valve replacement Anticoagulation Episode Summary Current INR goal: 1.5-2.0 Assessment: INR result of 2.7 is SUPRAtherapeutic due to: Alcohol consumption and Decreased vitamin k intake Plan: Current Warfarin Dosing As of 02/08/2022 Full warfarin instructions: 02/09: Hold; Otherwise 7.5 mg every Mon, Fri; 5 mg all other days Called and spoke to patient/caregiver Advised patient to hold 1 dose then continue current regimen Next home INR check scheduled on 02/22/2022 Patient verbalizes understanding of the plan. Patient denies need for refills. Nikolai Cerna sommer Clinical Pharmacist, Pharmacy Anticoagulation Clinic Pharmacy Anticoagulation Clinic Pager: [phone]. documented in this encounterFlower Hospital10-19-2022 Miscellaneous Notes* Telephone Encounter - Lesia Wise RP - 02/06/2022 3:44 PM EDT Patient due to test INR today. Will continue to monitor for results. Lesia Wise RPh documented in this encounterFlower Hospital10-05-2022 Miscellaneous Notes* Telephone Encounter - Monalisa Melendez [facility] - 01/23/2022 9:42 AM EDT [facility] Anticoagulation Episode Summary Anticoagulation Care Providers Provider Role Specialty Phone number Juan Willis MD Referring Cardiology [phone] Arsenio Villalobos is a 56 year old year old male patient being evaluated today for a Telemanagement visit. Patient is currently on the following anticoagulant(s) Warfarin. Labs PT INR (no units) Date Value 10/12/2021 2.7 07/30/2021 3.6 biotel 07/16/2021 3.3 INR Home CoaguChek (no units) Date Value 01/22/2022 1.2 01/08/2022 1.6 12/25/2021 1.6 Hemoglobin (g/dL) Date Value 10/24/2020 15.2 Hematocrit (%) Date Value 10/24/2020 46.6 Platelet Count (k/uL) Date Value 10/24/2020 286 Creatinine (mg/dL) Date Value 10/24/2020 1.18 09/22/2020 1.13 09/17/2020 0.94 Bilirubin, Total (mg/dL) Date Value 10/24/2020 0.4 ALT (U/L) Date Value 10/24/2020 19 AST (U/L) Date Value 10/24/2020 24 CrCl cannot be calculated (Patient's most recent lab result is older than the maximum 180 days allowed.). ALLERGIES Allergen Reactions Penicillins Unknown childhood Tegaderm Ag Mesh [S* Rash, Swelling Indication for Warfarin: detention current use of anticoagulant H/o mechanical aortic valve replacement Anticoagulation Episode Summary Current INR goal: 1.5-2.0 Assessment: INR result of 1.2 is SUBtherapeutic due to: unknown cause - did not speak to patient Plan: Current Warfarin Dosing As of 01/23/2022 Full warfarin instructions: 01/23: 7.5 mg; Otherwise 7.5 mg every Mon, Fri; 5 mg all other days Left voice message Advised patient to increase dose for 1 day only then resume weekly regimen Next home INR check scheduled on 02/06/2022 Monalisa Melendez RPh Clinical Pharmacist, Pharmacy Anticoagulation Clinic Pharmacy An[facility] Pager: [phone]. * Telephone Encounter - Crystal Ellsworth RN - 01/23/2022 9:01 AM EDT Otis Hernandez left a VM with the patient's INR result on 01/22/22: PT INR (no units) Date Value 10/12/2021 2.7 07/30/2021 3.6 biotel 07/16/2021 3.3 INR Home CoaguChek (no units) Date Value 01/22/2022 1.2 01/08/2022 1.6 12/25/2021 1.6 Francine Ellsworth RN [facility] documented in this encounterFlower Hospital09-29-2022 Miscellaneous Notes* Telephone Encounter - Kaylen Funk RN - 01/17/2022 4:25 PM EDT Juan Willis MD sent to Kaylen Funk RN If he thinks the PVCs are frequent, then lets do Zio patch to quantify the burden I will put the order for the zio patch , but not sure if he has to come to [facility] to have it placed or if they can send it to him. Eugenio Martinez documented in this encounterFlower Hospital08-29-2022 Miscellaneous Notes* Telephone Encounter - Drew Reyes - 12/17/2021 12:21 PM EDT Images from the original note were not included. Received via email from Chelsea Waite a copy of PT/INR authorization from [facility]. Form was faxed. Saved on Dr. Willis' OPD folder. documented in this encounterFlower Hospital08-22-2022 Miscellaneous Notes* Telephone Encounter - Melanyseven Wright [facility] - 12/10/2021 1:45 PM EDT [facility] Anticoagulation Episode Summary Anticoagulation Care Providers Provider Role Specialty Phone number Juan Willis MD Referring Cardiology [phone] Arsenio Villalobos is a 56 year old year old male patient being evaluated today for a Telemanagement visit. Patient is currently on the following anticoagulant(s) Warfarin. Labs PT INR (no units) Date Value 10/12/2021 2.7 07/30/2021 3.6 biotel 07/16/2021 3.3 INR Home CoaguChek (no units) Date Value 12/10/2021 1.3 11/23/2021 1.4 11/09/2021 1.5 CrCl cannot be calculated (Patient's most recent lab result is older than the maximum 180 days allowed.). ALLERGIES Allergen Reactions Penicillins Unknown childhood Tegaderm Ag Mesh [S* Rash, Swelling Indication for Warfarin: Anticoagulation Episode Summary Current INR goal: 1.5-2.0 Assessment: INR result of 1.3 is SUBtherapeutic due to: Following recent dosage decrease Plan: Current Warfarin Dosing As of 12/10/2021 Full warfarin instructions: 7.5 mg every Mon, Fri; 5 mg all other days Called and spoke to patient/caregiver Advised patient to increase total weekly regimen Next INR check due on 12/31/2021 Patient verbalizes understanding of the plan. Melany Wright RPh Clinical Pharmacist, Pharmacy Anticoagulation Clinic Pharmacy Antico[facility] Clinic Pager: [phone]. * Telephone Encounter - Moe García (Crna) - 12/10/2021 1:28 PM EDT PATIENT CALL [facility] called call center regarding results Received call from [employer] for patient. Patient tested on 12/10/2021 with out of range INR result of 1.3. PT INR (no units) Date Value 10/12/2021 2.7 07/30/2021 3.6 biotel 07/16/2021 3.3 INR Home CoaguChek (no units) Date Value 12/10/2021 1.3 11/23/2021 1.4 11/09/2021 1.5 Patient can be reached at [phone]. [facility] documented in this encounterFlower Hospital08-05-2022 Miscellaneous Notes* Telephone Encounter - Rae Boykin RPh - 11/23/2021 1:36 PM EDT [facility] Anticoagulation Episode Summary Anticoagulation Care Providers Provider Role Specialty Phone number Juan Willis MD Referring Cardiology [phone] Arsenio Villalobos is a 56 year old year old male patient being evaluated today for a Telemanagement visit. Patient is currently on the following anticoagulant(s) Warfarin. Labs PT INR (no units) Date Value 10/12/2021 2.7 07/30/2021 3.6 biotel 07/16/2021 3.3 INR Home CoaguChek (no units) Date Value 11/23/2021 1.4 11/09/2021 1.5 10/26/2021 1.2 Hemoglobin (g/dL) Date Value 10/24/2020 15.2 Hematocrit (%) Date Value 10/24/2020 46.6 Platelet Count (k/uL) Date Value 10/24/2020 286 Creatinine (mg/dL) Date Value 10/24/2020 1.18 09/22/2020 1.13 09/17/2020 0.94 Bilirubin, Total (mg/dL) Date Value 10/24/2020 0.4 ALT (U/L) Date Value 10/24/2020 19 AST (U/L) Date Value 10/24/2020 24 CrCl cannot be calculated (Patient's most recent lab result is older than the maximum 180 days allowed.). ALLERGIES Allergen Reactions Penicillins Unknown childhood Tegaderm Ag Mesh [S* Rash, Swelling Indication for Warfarin: detention current use of anticoagulant H/o mechanical aortic valve replacement Anticoagulation Episode Summary Current INR goal: 1.5-2.0 Assessment: INR result of 1.4 is SUBtherapeutic due to: No obvious cause Plan: Current Warfarin Dosing As of 11/23/2021 Full warfarin instructions: 11/23: 7.5 mg; Otherwise 7.5 mg every Mon; 5 mg all other days Called and spoke to patient/caregiver Advised patient to increase dose for 1 day only then resume weekly regimen Next home INR check scheduled on 12/07/2021 Patient verbalizes understanding of the plan Patient denies need for refills Rae Boykin RPh Clinical Pharmacist, Pharmacy [facility]tico[facility] Pager: [phone] . documented in this encounterFlower Hospital07-22-2022 Miscellaneous Notes* Telephone Encounter - Nikolai Cerna RPh - 11/09/2021 9:51 AM EDT [facility] Anticoagulation Episode Summary Anticoagulation Care Providers Provider Role Specialty Phone number Juan Willis MD Referring Cardiology [phone] Arsenio Villalobos is a 56 year old year old male patient being evaluated today for a Telemanagement visit. Patient is currently on the following anticoagulant(s) Warfarin. Labs PT INR (no units) Date Value 10/12/2021 2.7 07/30/2021 3.6 biotel 07/16/2021 3.3 INR Home CoaguChek (no units) Date Value 11/09/2021 1.5 10/26/2021 1.2 09/28/2021 2.3 Hemoglobin (g/dL) Date Value 10/24/2020 15.2 Hematocrit (%) Date Value 10/24/2020 46.6 Platelet Count (k/uL) Date Value 10/24/2020 286 Creatinine (mg/dL) Date Value 10/24/2020 1.18 09/22/2020 1.13 09/17/2020 0.94 Bilirubin, Total (mg/dL) Date Value 10/24/2020 0.4 ALT (U/L) Date Value 10/24/2020 19 AST (U/L) Date Value 10/24/2020 24 CrCl cannot be calculated (Patient's most recent lab result is older than the maximum 180 days allowed.). 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 documented in this encounterFlower Hospital07-16-2022 Miscellaneous Notes* Telephone Encounter - Jostin Fitch - 11/03/2021 8:22 AM EDT Call from patient requesting refill. Pending Prescriptions Disp Refills WARFARIN 5 MG TABLET Si.5 mg every Mon; 5 mg all other days EMERALD: No Patient last seen 05/29/2021 Jostin Fitch documented in this encounterFlower Hospital07-08-2022 Miscellaneous Notes* Telephone Encounter - Kain Christy, [facility] - 10/26/2021 10:49 AM EDT [facility] Anticoagulation Episode Summary Anticoagulation Care Providers Provider Role Specialty Phone number Juan Willis MD Referring Cardiology [phone] Arsenio Villalobos is a 56 year old year old male patient being evaluated today for a Telemanagement visit. Patient is currently on the following anticoagulant(s) Warfarin. Labs PT INR (no units) Date Value 10/12/2021 2.7 07/30/2021 3.6 biotel 07/16/2021 3.3 INR Home CoaguChek (no units) Date Value 10/26/2021 1.2 09/28/2021 2.3 09/21/2021 2.3 Hemoglobin (g/dL) Date Value 10/24/2020 15.2 Hematocrit (%) Date Value 10/24/2020 46.6 Platelet Count (k/uL) Date Value 10/24/2020 286 Creatinine (mg/dL) Date Value 10/24/2020 1.18 09/22/2020 1.13 09/17/2020 0.94 Bilirubin, Total (mg/dL) Date Value 10/24/2020 0.4 ALT (U/L) Date Value 10/24/2020 19 AST (U/L) Date Value 10/24/2020 24 CrCl cannot be calculated (Patient's most recent lab result is older than the maximum 180 days allowed.). 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 Plan: Current Warfarin Dosing As of 10/26/2021 Warfarin maintenance plan: 7.5 mg (5 mg x 1.5) every Mon; 5 mg (5 mg x 1) all other days Called and spoke to patient/caregiver Advised patient to increase dose for 1 day only then resume weekly regimen Next home INR check scheduled on 11/09/2021 Patient verbalizes understanding of the plan. Patient denies need for refills. Kain Christy RPh Clinical Pharmacist, Pharmacy Anticoagulation Clinic Pharmacy [facility] Pager: [phone] . * Telephone Encounter - Moe García (Crna) - 10/26/2021 10:34 AM EDT PATIENT CALL [facility] called call center regarding results [facility]. Patient tested on 10/26/2021 with out of range INR result of 1.2. PT INR (no units) Date Value 10/12/2021 2.7 07/30/2021 3.6 biotel 07/16/2021 3.3 INR Home CoaguChek (no units) Date Value 10/26/2021 1.2 09/28/2021 2.3 09/21/2021 2.3 Patient can be reached at [phone]. [facility] documented in this encounterFlower Hospital06-24-2022 Miscellaneous Notes* Addendum Note - Nikolai Cerna RPh - 10/12/2021 2:54 PM EDT Addended by: NIKOLAI CERNA on: 10/12/2021 02:54 PM Modules accepted: Orders * Telephone Encounter - Nikolai Cerna RPh - 10/12/2021 2:48 PM EDT [facility] Anticoagulation Episode Summary Anticoagulation Care Providers Provider Role Specialty Phone number Juan Willis MD Referring Cardiology [phone] Arsenio Villalobos is a 56 year old year old male patient being evaluated today for a Telemanagement visit. Patient is currently on the following anticoagulant(s) Warfarin. Labs PT INR (no units) Date Value 10/12/2021 2.7 07/30/2021 3.6 biotel 07/16/2021 3.3 INR Home CoaguChek (no units) Date Value 09/28/2021 2.3 09/21/2021 2.3 09/14/2021 3.2 Hemoglobin (g/dL) Date Value 10/24/2020 15.2 Hematocrit (%) Date Value 10/24/2020 46.6 Platelet Count (k/uL) Date Value 10/24/2020 286 Creatinine (mg/dL) Date Value 10/24/2020 1.18 09/22/2020 1.13 09/17/2020 0.94 Bilirubin, Total (mg/dL) Date Value 10/24/2020 0.4 ALT (U/L) Date Value 10/24/2020 19 AST (U/L) Date Value 10/24/2020 24 CrCl cannot be calculated (Patient's most recent lab result is older than the maximum 180 days allowed.). ALLERGIES Allergen Reactions Penicillins Unknown childhood Tegaderm Ag Mesh [S* Rash, Swelling Indication for Warfarin: detention current use of anticoagulant H/o mechanical aortic valve replacement Anticoagulation Episode Summary Current INR goal: 1.5-2.0 Assessment: INR result of 2.7 is SUPRAtherapeutic due to: Decreased vitamin k intake Plan: Called and spoke to patient/caregiver Advised patient to decrease total weekly regimen Next home INR check scheduled on 10/26/2021 Patient verbalizes understanding of the plan. Patient denies need for refills. Nikolai Cerna RPh Clinical Pharmacist, Pharmacy Anticoagulation Clinic Pharmacy [facility] Pager: [phone] . documented in this encounterFlower Hospital06-17-2022 Miscellaneous Notes* Telephone Encounter - Nikolai Cerna RPh - 10/05/2021 2:00 PM EDT Patient due to test INR today. Will continue to monitor for results. Nikolai Cerna RPh documented in this encounterFlower Hospital06-10-2022 Miscellaneous Notes* Telephone Encounter - Nikolai Cerna RPh - 09/28/2021 2:37 PM EDT [facility] Anticoagulation Episode Summary Anticoagulation Care Providers Provider Role Specialty Phone number Juan Willis MD Referring Cardiology [phone] Arsenio Villalobos is a 56 year old year old male patient being evaluated today for a Telemanagement visit. Patient is currently on the following anticoagulant(s) Warfarin. Labs PT INR (no units) Date Value 07/30/2021 3.6 biotel 07/16/2021 3.3 07/10/2021 4.8 (biotel) INR Home CoaguChek (no units) Date Value 09/28/2021 2.3 09/21/2021 2.3 09/14/2021 3.2 Hemoglobin (g/dL) Date Value 10/24/2020 15.2 Hematocrit (%) Date Value 10/24/2020 46.6 Platelet Count (k/uL) Date Value 10/24/2020 286 Creatinine (mg/dL) Date Value 10/24/2020 1.18 09/22/2020 1.13 09/17/2020 0.94 Bilirubin, Total (mg/dL) Date Value 10/24/2020 0.4 ALT (U/L) Date Value 10/24/2020 19 AST (U/L) Date Value 10/24/2020 24 CrCl cannot be calculated (Patient's most recent lab result is older than the maximum 180 days allowed.). ALLERGIES Allergen Reactions Penicillins Unknown childhood Tegaderm Ag Mesh [S* Rash, Swelling Indication for Warfarin: detention current use of anticoagulant H/o mechanical aortic valve replacement Anticoagulation Episode Summary Current INR goal: 1.5-2.0 Assessment: INR result of 2.3 is SUPRAtherapeutic due to: No obvious cause Plan: Called and spoke to patient/caregiver Advised patient to decrease dose for 1 day and decrease total weekly regimen Next home INR check scheduled on 10/05/2021 Patient verbalizes understanding of the plan. Patient denies need for refills. Nikolai Cerna RPh Clinical Pharmacist, Pharmacy Anticoagulation Clinic Pharmacy [facility] Clinic Pager: [phone] . documented in this encounterFlower Hospital06-03-2022 Miscellaneous Notes* Telephone Encounter - Nikolai Cerna RPh - 09/21/2021 2:17 PM EDT [facility] Anticoagulation Episode Summary Anticoagulation Care Providers Provider Role Specialty Phone number Juan Willis MD Referring Cardiology [phone] Arsenio Villalobos is a 56 year old year old male patient being evaluated today for a Telemanagement visit. Patient is currently on the following anticoagulant(s) Warfarin. Labs PT INR (no units) Date Value 07/30/2021 3.6 biotel 07/16/2021 3.3 07/10/2021 4.8 (biotel) INR Home CoaguChek (no units) Date Value 09/21/2021 2.3 09/14/2021 3.2 08/29/2021 1.8 Hemoglobin (g/dL) Date Value 10/24/2020 15.2 Hematocrit (%) Date Value 10/24/2020 46.6 Platelet Count (k/uL) Date Value 10/24/2020 286 Creatinine (mg/dL) Date Value 10/24/2020 1.18 09/22/2020 1.13 09/17/2020 0.94 Bilirubin, Total (mg/dL) Date Value 10/24/2020 0.4 ALT (U/L) Date Value 10/24/2020 19 AST (U/L) Date Value 10/24/2020 24 CrCl cannot be calculated (Patient's most recent lab result is older than the maximum 180 days allowed.). ALLERGIES Allergen Reactions Penicillins Unknown childhood Tegaderm Ag Mesh [S* Rash, Swelling Indication for Warfarin: detention current use of anticoagulant H/o mechanical aortic valve replacement Anticoagulation Episode Summary Current INR goal: 1.5-2.0 Assessment: INR result of 2.3 is SUPRAtherapeutic due to: Decreased vitamin k intake, but INR is lower than last week Plan: Called and spoke to patient/caregiver Advised patient to decrease dose for 1 day only then resume weekly regimen Next home INR check scheduled on 09/28/2021 Patient verbalizes understanding of the plan. Patient denies need for refills. Nioklaiwill Cerna RPh Clinical Pharmacist, Pharmacy Anticoagulation Clinic Pharmacy [facility] Pager: [phone] . documented in this encounterFlower Hospital05-27-2022 Miscellaneous Notes* Telephone Encounter - Nikolai Cerna RPh - 09/14/2021 1:33 PM EDT [facility] Anticoagulation Episode Summary Anticoagulation Care Providers Provider Role Specialty Phone number Juan Willis MD Referring Cardiology [phone] Arsenio Villalobos is a 56 year old year old male patient being evaluated today for a Telemanagement visit. Patient is currently on the following anticoagulant(s) Warfarin. Labs PT INR (no units) Date Value 07/30/2021 3.6 biotel 07/16/2021 3.3 07/10/2021 4.8 (biotel) INR Home CoaguChek (no units) Date Value 09/14/2021 3.2 08/29/2021 1.8 08/22/2021 1.6 Hemoglobin (g/dL) Date Value 10/24/2020 15.2 Hematocrit (%) Date Value 10/24/2020 46.6 Platelet Count (k/uL) Date Value 10/24/2020 286 Creatinine (mg/dL) Date Value 10/24/2020 1.18 09/22/2020 1.13 09/17/2020 0.94 Bilirubin, Total (mg/dL) Date Value 10/24/2020 0.4 ALT (U/L) Date Value 10/24/2020 19 AST (U/L) Date Value 10/24/2020 24 CrCl cannot be calculated (Patient's most recent lab result is older than the maximum 180 days allowed.). ALLERGIES Allergen Reactions Penicillins Unknown childhood Tegaderm Ag Mesh [S* Rash, Swelling Indication for Warfarin: detention current use of anticoagulant H/o mechanical aortic valve replacement Anticoagulation Episode Summary Current INR goal: 1.5-2.0 Assessment: INR result of 3.2 is SUPRAtherapeutic due to: Alcohol consumption and Decreased vitamin k intake Plan: Called and spoke to patient/caregiver Advised patient to hold 1 dose then continue current regimen Next home INR check scheduled on 09/21/2021 Patient verbalizes understanding of the plan. Patient denies need for refills. Nikolai Cerna RPh Clinical Pharmacist, Pharmacy Anticoagulation Clinic Pharmacy Antico[facility] Clinic Pager: [phone] . documented in this encounterFlower Hospital05-26-2022 Miscellaneous Notes* Telephone Encounter - Maureen Tracy RPh - 09/13/2021 2:29 PM EDT Patient due to test INR today. Will continue to monitor for results. Maureen Tracy RPh documented in this encounterFlower Hospital05-12-2022 Miscellaneous Notes* Telephone Encounter - Maureen Tracy RPh - 08/30/2021 9:37 AM EDT [facility] Arsenio Villalobos is a 56 year old year old male patient being evaluated today for anticoagulation Telemanagement visit. Patient is currently on the following anticoagulant: Warfarin Labs PT INR (no units) Date Value 07/30/2021 3.6 biotel 07/16/2021 3.3 07/10/2021 4.8 (biotel) INR Home CoaguChek (no units) Date Value 08/29/2021 1.8 08/22/2021 1.6 08/15/2021 3.1 Indication for Warfarin: detention current use of anticoagulant H/o mechanical aortic valve replacement Anticoagulation Episode Summary Current INR goal: 1.5-2.0 Assessment: INR result of 1.8 is therapeutic Plan: Called and spoke to patient/caregiver Advised patient to continue current weekly dose Next home INR check scheduled on 09/13/2021 Patient verbalizes understanding of the plan. Approves [employer] messaging for the future Maureen Tracy RPh Clinical Pharmacist, Pharmacy Anticoagulation Clinic Pharm[facility] Pager: [phone] * Telephone Encounter - Monalisa Melendez RPh - 08/29/2021 2:33 PM EDT Patient was due to test INR today will continue to monitor for results. Monalisa Melendez PharmD documented in this encounterFlower Hospital04-27-2022 Miscellaneous Notes* Telephone Encounter - Monalisa Melendez RPh - 08/15/2021 10:37 AM EDT [facility] Anticoagulation Episode Summary Anticoagulation Care Providers Provider Role Specialty Phone number Juan Willis MD Referring Cardiology [phone] Arsenio Villalobos is a 55 year old year old male patient being evaluated today for a Telemanagement visit. Patient is currently on the following anticoagulant(s) Warfarin. Labs PT INR (no units) Date Value 07/30/2021 3.6 biotel 07/16/2021 3.3 07/10/2021 4.8 (biotel) INR Home CoaguChek (no units) Date Value 08/15/2021 3.1 08/07/2021 2.3 07/26/2021 3.3 Hemoglobin (g/dL) Date Value 10/24/2020 15.2 Hematocrit (%) Date Value 10/24/2020 46.6 Platelet Count (k/uL) Date Value 10/24/2020 286 Creatinine (mg/dL) Date Value 10/24/2020 1.18 09/22/2020 1.13 09/17/2020 0.94 Bilirubin, Total (mg/dL) Date Value 10/24/2020 0.4 ALT (U/L) Date Value 10/24/2020 19 AST (U/L) Date Value 10/24/2020 24 CrCl cannot be calculated (Patient's most recent lab result is older than the maximum 180 days allowed.). 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 Plan: Called and spoke to patient/caregiver Advised patient to decrease total weekly regimen Next home INR check scheduled on 08/22/2021 Patient verbalizes understanding of the plan. Patient denies need for refills. Monalisa Melendez RPh Clinical Pharmacist, Pharmacy Anticoagulation Clinic Pharmacy [facility] Pager: [phone] . * Telephone Encounter - Lucita Alba RPh - 08/14/2021 5:10 PM EDT Arsenio Villalobos was called and reminded to test INR today or as soon as possible. . Lucita Alba RPh documented in this encounterFlower Hospital04-19-2022 Miscellaneous Notes* Telephone Encounter - Rosalva Milner RPh - 08/07/2021 3:22 PM EDT [facility] Anticoagulation Episode Summary Anticoagulation Care Providers Provider Role Specialty Phone number Juan Willis MD Referring Cardiology [phone] Arsenio Villalobos is a 55 year old year old male patient being evaluated today for a Telemanagement visit. Patient is currently on the following anticoagulant(s) Warfarin. Labs PT INR (no units) Date Value 07/30/2021 3.6 biotel 07/16/2021 3.3 07/10/2021 4.8 (biotel) INR Home CoaguChek (no units) Date Value 08/07/2021 2.3 07/26/2021 3.3 Hemoglobin (g/dL) Date Value 10/24/2020 15.2 Hematocrit (%) Date Value 10/24/2020 46.6 Platelet Count (k/uL) Date Value 10/24/2020 286 Creatinine (mg/dL) Date Value 10/24/2020 1.18 09/22/2020 1.13 09/17/2020 0.94 Bilirubin, Total (mg/dL) Date Value 10/24/2020 0.4 ALT (U/L) Date Value 10/24/2020 19 AST (U/L) Date Value 10/24/2020 24 CrCl cannot be calculated (Patient's most recent lab result is older than the maximum 180 days allowed.). 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 Patient denies need for refills. Rosalva Milner RPh Clinical Pharmacist, Pharmacy Anticoagulation Clinic Pharmacy [facility] Pager: [phone] . * Telephone Encounter - Rosalva Milner RPh - 08/07/2021 2:56 PM EDT Pt was due to test INR today. No result received. Will continue to monitor for result. Rosalva Milner RPh.' documented in this encounterFlower Hospital04-12-2022 Miscellaneous Notes* Telephone Encounter - Lucita Alba RPh - 07/31/2021 9:12 AM EDT [facility] Anticoagulation Episode Summary Anticoagulation Care Providers Provider Role Specialty Phone number Juan Willis MD Referring Cardiology [phone] Arsenio Villalobos is a 55 year old year old male patient being evaluated today for a Telemanagement visit. Patient is currently on the following anticoagulant(s) Warfarin. Labs PT INR (no units) Date Value 07/30/2021 3.6 biotel 07/16/2021 3.3 07/10/2021 4.8 (biotel) INR Home CoaguChek (no units) Date Value 07/26/2021 3.3 Hemoglobin (g/dL) Date Value 10/24/2020 15.2 Hematocrit (%) Date Value 10/24/2020 46.6 Platelet Count (k/uL) Date Value 10/24/2020 286 Creatinine (mg/dL) Date Value 10/24/2020 1.18 09/22/2020 1.13 09/17/2020 0.94 Bilirubin, Total (mg/dL) Date Value 10/24/2020 0.4 ALT (U/L) Date Value 10/24/2020 19 AST (U/L) Date Value 10/24/2020 24 CrCl cannot be calculated (Patient's most recent lab result is older than the maximum 180 days allowed.). 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 Lucita Alba RPh Clinical Pharmacist, Pharmacy Anticoagulation Clinic Pharmacy An[facility] Clinic Pager: [phone] . * Telephone Encounter - Kain Christy RPh - 07/30/2021 4:35 PM EDT Patient due to test INR today. Will continue to monitor for results. Kain Christy RPh documented in this encounterFlower Hospital04-08-2022 Miscellaneous Notes* Telephone Encounter - Nikolai Cerna RPh - 07/27/2021 1:14 PM EDT [facility] Anticoagulation Episode Summary Anticoagulation Care Providers Provider Role Specialty Phone number Juan Willis MD Referring Cardiology [phone] Arsenio Villalobos is a 55 year old year old male patient being evaluated today for a Telemanagement visit. Patient is currently on the following anticoagulant(s) Warfarin. Labs PT INR (no units) Date Value 07/16/2021 3.3 07/10/2021 4.8 (biotel) 10/24/2020 1.6 INR Home CoaguChek (no units) Date Value 07/26/2021 3.3 Hemoglobin (g/dL) Date Value 10/24/2020 15.2 Hematocrit (%) Date Value 10/24/2020 46.6 Platelet Count (k/uL) Date Value 10/24/2020 286 Creatinine (mg/dL) Date Value 10/24/2020 1.18 09/22/2020 1.13 09/17/2020 0.94 Bilirubin, Total (mg/dL) Date Value 10/24/2020 0.4 ALT (U/L) Date Value 10/24/2020 19 AST (U/L) Date Value 10/24/2020 24 CrCl cannot be calculated (Patient's most recent lab result is older than the maximum 180 days allowed.). 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 Patient denies need for refills. Nikolai Cerna RPh Clinical Pharmacist, [facility] Pager: [phone] . [facility] Miscellaneous Notes* Telephone Encounter - Melany Wright RPh - 07/23/2021 4:45 PM EDT Patient was due to test INR today. Will continue to monitor for results. [facility] Miscellaneous Notes* Telephone Encounter - Lucita Alba RPh - 07/17/2021 10:06 AM EDT [facility] Anticoagulation Episode Summary Anticoagulation Care Providers Provider Role Specialty Phone number Juan MD Alba Referring Cardiology [phone] Arsenio Villalobos is a 55 year old year old male patient being evaluated today for a Telemanagement visit. Patient is currently on the following anticoagulant(s) Warfarin. Labs PT INR (no units) Date Value 07/16/2021 3.3 07/10/2021 4.8 (biotel) 10/24/2020 1.6 Hemoglobin (g/dL) Date Value 10/24/2020 15.2 Hematocrit (%) Date Value 10/24/2020 46.6 Platelet Count (k/uL) Date Value 10/24/2020 286 Creatinine (mg/dL) Date Value 10/24/2020 1.18 09/22/2020 1.13 09/17/2020 0.94 Bilirubin, Total (mg/dL) Date Value 10/24/2020 0.4 ALT (U/L) Date Value 10/24/2020 19 AST (U/L) Date Value 10/24/2020 24 CrCl cannot be calculated (Patient's most recent lab result is older than the maximum 180 days allowed.). ALLERGIES Allergen Reactions Penicillins Unknown childhood Tegaderm Ag Mesh [S* Rash, Swelling Indication for Warfarin: Anticoagulation Episode Summary Current INR goal: 1.5-2.0 Assessment: INR result of 3.3 is SUPRAtherapeutic due to: Medication change or drug interaction Plan: Called and spoke to patient/caregiver Advised patient to hold 1 dose,decrease a dose then resume current dose Next home INR check scheduled on 07/23/2021 Patient verbalizes understanding of the plan. Lucita Alba RPh Clinical Pharmacist, Pharmacy Anticoagulation Clinic Pharmacy [facility] Pager: [phone] . * Telephone Encounter - Melany Wright RPh - 07/16/2021 5:07 PM EDT Patient was due to test INR today. Will continue to monitor for results. documented in [facility] encounterF[facility]03-23-2022 Miscellaneous Notes* Telephone Encounter - Monalisa Melendez, [facility] - 07/11/2021 9:54 AM EDT [facility] Anticoagulation Episode Summary Anticoagulation Care Providers Provider Role Specialty Phone number Juan Willis MD Referring Cardiology [phone] Arsenio Villalobos is a 55 year old year old male patient being evaluated today for a Telemanagement visit. Patient is currently on the following anticoagulant(s) Warfarin. Labs PT INR (no units) Date Value 07/10/2021 4.8 (biotel) 10/24/2020 1.6 09/22/2020 2.1 Hemoglobin (g/dL) Date Value 10/24/2020 15.2 Hematocrit (%) Date Value 10/24/2020 46.6 Platelet Count (k/uL) Date Value 10/24/2020 286 Creatinine (mg/dL) Date Value 10/24/2020 1.18 09/22/2020 1.13 09/17/2020 0.94 Bilirubin, Total (mg/dL) Date Value 10/24/2020 0.4 ALT (U/L) Date Value 10/24/2020 19 AST (U/L) Date Value 10/24/2020 24 CrCl cannot be calculated (Patient's most recent lab result is older than the maximum 180 days allowed.). ALLERGIES Allergen Reactions Penicillins Unknown childhood Tegaderm Ag Mesh [S* Rash, Swelling Indication for Warfarin: detention current use of anticoagulant H/o mechanical aortic valve replacement Anticoagulation Episode Summary Current INR goal: 1.5-2.0 Assessment: INR result of 4.8 (biotel) is SUPRAtherapeutic due to: recent illness - and tylenol/less appetite He did not take warfarin yesterday. Yesterday was prescribed doxycycline since he has a sinus infection and it started 07/10 for 10 days. Plan: Called and spoke to patient/caregiver Advised patient to decrease his dose for the next week. Next home INR check scheduled on 07/11/2021 Patient verbalizes understanding of the plan. Patient denies need for refills. Monalisa Melendez RPh Clinical Pharmacist, Pharmacy Anticoagulation Clinic Pharmacy Antico[facility] Clinic Pager: [phone] . * Telephone Encounter - Crystal Ellsworth RN - 07/11/2021 9:29 AM EDT Received a VM after hours (07/10/21 7:31p) from [facility] advising INR was 4.8. Noted result has not uploaded into [employer]. PT INR (no units) Date Value 10/24/2020 1.6 09/22/2020 2.1 09/17/2020 1.9 Francine Ellsworth RN Pharmacy Anticoagulation Clinic documented in this encounterFlower [facility]05-25-[facility]21 History of Past illness Narrative* Problem Noted Date Resolved Date On mechanically assisted ventilation 09/12/2020 09/13/2020 Overview: History: elective intubation for cardiac surgery Assessment: minimal ventilatory settings; easy airway Plan: WTE when clinically appropriate Stress hyperglycemia 09/12/2020 09/16/2020 Overview: History: No hx of DM. No results found for: HBA1C Assessment: Perioperative insulin resistance and exacerbation of hyperglycemia. Plan: Resolving. Stop accuchecks and SSI documented as of this encounter (statuses as of 07/11/2021) [facility] of Past illness Narrative* Problem Noted Date Resolved Date On mechanically assisted ventilation 09/12/2020 09/13/2020 Overview: History: elective intubation for cardiac surgery Assessment: minimal ventilatory settings; easy airway Plan: WTE when clinically appropriate Stress hyperglycemia 09/12/2020 09/16/2020 Overview: History: No hx of DM. No results found for: HBA1C Assessment: Perioperative insulin resistance and exacerbation of hyperglycemia. Plan: Resolving. Stop accuchecks and SSI documented as of this encounter (statuses as of 07/17/2021) [facility] of Past illness Narrative* Problem Noted Date Resolved Date On mechanically assisted ventilation 09/12/2020 09/13/2020 Overview: History: elective intubation for cardiac surgery Assessment: minimal ventilatory settings; easy airway Plan: WTE when clinically appropriate Stress hyperglycemia 09/12/2020 09/16/2020 Overview: History: No hx of DM. No results found for: HBA1C Assessment: Perioperative insulin resistance and exacerbation of hyperglycemia. Plan: Resolving. Stop accuchecks and SSI documented as of this encounter (statuses as of 07/27/2021) [facility] Past illness Narrative* Problem Noted Date Resolved Date On mechanically assisted ventilation 09/12/2020 09/13/2020 Overview: History: elective intubation for cardiac surgery Assessment: minimal ventilatory settings; easy airway Plan: WTE when clinically appropriate Stress hyperglycemia 09/12/2020 09/16/2020 Overview: History: No hx of DM. No results found for: HBA1C Assessment: Perioperative insulin resistance and exacerbation of hyperglycemia. Plan: Resolving. Stop accuchecks and SSI documented as of this encounter (statuses as of 07/31/2021) [facility] Past illness Narrative* Problem Noted Date Resolved Date On mechanically assisted ventilation 09/12/2020 09/13/2020 Overview: History: elective intubation for cardiac surgery Assessment: minimal ventilatory settings; easy airway Plan: WTE when clinically appropriate Stress hyperglycemia 09/12/2020 09/16/2020 Overview: History: No hx of DM. No results found for: HBA1C Assessment: Perioperative insulin resistance and exacerbation of hyperglycemia. Plan: Resolving. Stop accuchecks and SSI documented as of this encounter (statuses as of 08/08/2021) [facility] Past illness Narrative* Problem Noted Date Resolved Date On mechanically assisted ventilation 09/12/2020 09/13/2020 Overview: History: elective intubation for cardiac surgery Assessment: minimal ventilatory settings; easy airway Plan: WTE when clinically appropriate Stress hyperglycemia 09/12/2020 09/16/2020 Overview: History: No hx of DM. No results found for: HBA1C Assessment: Perioperative insulin resistance and exacerbation of hyperglycemia. Plan: Resolving. Stop accuchecks and SSI documented as of this encounter (statuses as of 08/15/2021) [facility] illness Narrative* Problem Noted Date Resolved Date On mechanically assisted ventilation 09/12/2020 09/13/2020 Overview: History: elective intubation for cardiac surgery Assessment: minimal ventilatory settings; easy airway Plan: WTE when clinically appropriate Stress hyperglycemia 09/12/2020 09/16/2020 Overview: History: No hx of DM. No results found for: HBA1C Assessment: Perioperative insulin resistance and exacerbation of hyperglycemia. Plan: Resolving. Stop accuchecks and SSI documented as of this encounter (statuses as of 08/30/2021) [facility] Narrative* Problem Noted Date Resolved Date On mechanically assisted ventilation 09/12/2020 09/13/2020 Overview: History: elective intubation for cardiac surgery Assessment: minimal ventilatory settings; easy airway Plan: WTE when clinically appropriate Stress hyperglycemia 09/12/2020 09/16/2020 Overview: History: No hx of DM. No results found for: HBA1C Assessment: Perioperative insulin resistance and exacerbation of hyperglycemia. Plan: Resolving. Stop accuchecks and SSI documented as of this encounter (statuses as of 09/14/2021) [facility] Narrative* Problem Noted Date Resolved Date On mechanically assisted ventilation 09/12/2020 09/13/2020 Overview: History: elective intubation for cardiac surgery Assessment: minimal ventilatory settings; easy airway Plan: WTE when clinically appropriate Stress hyperglycemia 09/12/2020 09/16/2020 Overview: History: No hx of DM. No results found for: HBA1C Assessment: Perioperative insulin resistance and exacerbation of hyperglycemia. Plan: Resolving. Stop accuchecks and SSI documented as of this encounter (statuses as of 09/14/2021) [facility] Narrative* Problem Noted Date Resolved Date On mechanically assisted ventilation 09/12/2020 09/13/2020 Overview: History: elective intubation for cardiac surgery Assessment: minimal ventilatory settings; easy airway Plan: WTE when clinically appropriate Stress hyperglycemia 09/12/2020 09/16/2020 Overview: History: No hx of DM. No results found for: HBA1C Assessment: Perioperative insulin resistance and exacerbation of hyperglycemia. Plan: Resolving. Stop accuchecks and SSI documented as of this encounter (statuses as of 09/21/2021) [facility] Narrative* Problem Noted Date Resolved Date On mechanically assisted ventilation 09/12/2020 09/13/2020 Overview: History: elective intubation for cardiac surgery Assessment: minimal ventilatory settings; easy airway Plan: WTE when clinically appropriate Stress hyperglycemia 09/12/2020 09/16/2020 Overview: History: No hx of DM. No results found for: HBA1C Assessment: Perioperative insulin resistance and exacerbation of hyperglycemia. Plan: Resolving. Stop accuchecks and SSI documented as of this encounter (statuses as of 09/28/2021) [facility] Narrative* Problem Noted Date Resolved Date On mechanically assisted ventilation 09/12/2020 09/13/2020 Overview: History: elective intubation for cardiac surgery Assessment: minimal ventilatory settings; easy airway Plan: WTE when clinically appropriate Stress hyperglycemia 09/12/2020 09/16/2020 Overview: History: No hx of DM. No results found for: HBA1C Assessment: Perioperative insulin resistance and exacerbation of hyperglycemia. Plan: Resolving. Stop accuchecks and SSI documented as of this encounter (statuses as of 10/05/2021) [facility] Narrative* Problem Noted Date Resolved Date On mechanically assisted ventilation 09/12/2020 09/13/2020 Overview: History: elective intubation for cardiac surgery Assessment: minimal ventilatory settings; easy airway Plan: WTE when clinically appropriate Stress hyperglycemia 09/12/2020 09/16/2020 Overview: History: No hx of DM. No results found for: HBA1C Assessment: Perioperative insulin resistance and exacerbation of hyperglycemia. Plan: Resolving. Stop accuchecks and SSI documented as of this encounter (statuses as of 10/12/2021) [facility] Narrative* Problem Noted Date Resolved Date On mechanically assisted ventilation 09/12/2020 09/13/2020 Overview: History: elective intubation for cardiac surgery Assessment: minimal ventilatory settings; easy airway Plan: WTE when clinically appropriate Stress hyperglycemia 09/12/2020 09/16/2020 Overview: History: No hx of DM. No results found for: HBA1C Assessment: Perioperative insulin resistance and exacerbation of hyperglycemia. Plan: Resolving. Stop accuchecks and SSI documented as of this encounter (statuses as of 10/26/2021) [facility] Narrative* Problem Noted Date Resolved Date On mechanically assisted ventilation 09/12/2020 09/13/2020 Overview: History: elective intubation for cardiac surgery Assessment: minimal ventilatory settings; easy airway Plan: WTE when clinically appropriate Stress hyperglycemia 09/12/2020 09/16/2020 Overview: History: No hx of DM. No results found for: HBA1C Assessment: Perioperative insulin resistance and exacerbation of hyperglycemia. Plan: Resolving. Stop accuchecks and SSI documented as of this encounter (statuses as of 11/06/2021) [facility] Narrative* Problem Noted Date Resolved Date On mechanically assisted ventilation 09/12/2020 09/13/2020 Overview: History: elective intubation for cardiac surgery Assessment: minimal ventilatory settings; easy airway Plan: WTE when clinically appropriate Stress hyperglycemia 09/12/2020 09/16/2020 Overview: History: No hx of DM. No results found for: HBA1C Assessment: Perioperative insulin resistance and exacerbation of hyperglycemia. Plan: Resolving. Stop accuchecks and SSI documented as of this encounter (statuses as of 11/09/2021) [facility] Narrative* Problem Noted Date Resolved Date On mechanically assisted ventilation 09/12/2020 09/13/2020 Overview: History: elective intubation for cardiac surgery Assessment: minimal ventilatory settings; easy airway Plan: WTE when clinically appropriate Stress hyperglycemia 09/12/2020 09/16/2020 Overview: History: No hx of DM. No results found for: HBA1C Assessment: Perioperative insulin resistance and exacerbation of hyperglycemia. Plan: Resolving. Stop accuchecks and SSI documented as of this encounter (statuses as of 11/16/2021) [facility] Narrative* Problem Noted Date Resolved Date On mechanically assisted ventilation 09/12/2020 09/13/2020 Overview: History: elective intubation for cardiac surgery Assessment: minimal ventilatory settings; easy airway Plan: WTE when clinically appropriate Stress hyperglycemia 09/12/2020 09/16/2020 Overview: History: No hx of DM. No results found for: HBA1C Assessment: Perioperative insulin resistance and exacerbation of hyperglycemia. Plan: Resolving. Stop accuchecks and SSI documented as of this encounter (statuses as of 11/23/2021) [facility] Narrative* Problem Noted Date Resolved Date On mechanically assisted ventilation 09/12/2020 09/13/2020 Overview: History: elective intubation for cardiac surgery Assessment: minimal ventilatory settings; easy airway Plan: WTE when clinically appropriate Stress hyperglycemia 09/12/2020 09/16/2020 Overview: History: No hx of DM. No results found for: HBA1C Assessment: Perioperative insulin resistance and exacerbation of hyperglycemia. Plan: Resolving. Stop accuchecks and SSI documented as of this encounter (statuses as of 12/10/2021) [facility] Narrative* Problem Noted Date Resolved Date On mechanically assisted ventilation 09/12/2020 09/13/2020 Overview: History: elective intubation for cardiac surgery Assessment: minimal ventilatory settings; easy airway Plan: WTE when clinically appropriate Stress hyperglycemia 09/12/2020 09/16/2020 Overview: History: No hx of DM. No results found for: HBA1C Assessment: Perioperative insulin resistance and exacerbation of hyperglycemia. Plan: Resolving. Stop accuchecks and SSI documented as of this encounter (statuses as of 12/17/2021) [facility] Narrative* Problem Noted Date Resolved Date On mechanically assisted ventilation 09/12/2020 09/13/2020 Overview: History: elective intubation for cardiac surgery Assessment: minimal ventilatory settings; easy airway Plan: WTE when clinically appropriate Stress hyperglycemia 09/12/2020 09/16/2020 Overview: History: No hx of DM. No results found for: HBA1C Assessment: Perioperative insulin resistance and exacerbation of hyperglycemia. Plan: Resolving. Stop accuchecks and SSI documented as of this encounter (statuses as of 12/25/2021) [facility] Narrative* Problem Noted Date Resolved Date On mechanically assisted ventilation 09/12/2020 09/13/2020 Overview: History: elective intubation for cardiac surgery Assessment: minimal ventilatory settings; easy airway Plan: WTE when clinically appropriate Stress hyperglycemia 09/12/2020 09/16/2020 Overview: History: No hx of DM. No results found for: HBA1C Assessment: Perioperative insulin resistance and exacerbation of hyperglycemia. Plan: Resolving. Stop accuchecks and SSI documented as of this encounter (statuses as of 01/08/2022) [facility] Narrative* Problem Noted Date Resolved Date On mechanically assisted ventilation 09/12/2020 09/13/2020 Overview: History: elective intubation for cardiac surgery Assessment: minimal ventilatory settings; easy airway Plan: WTE when clinically appropriate Stress hyperglycemia 09/12/2020 09/16/2020 Overview: History: No hx of DM. No results found for: HBA1C Assessment: Perioperative insulin resistance and exacerbation of hyperglycemia. Plan: Resolving. Stop accuchecks and SSI documented as of this encounter (statuses as of 01/17/2022) [facility] Narrative* Problem Noted Date Resolved Date On mechanically assisted ventilation 09/12/2020 09/13/2020 Overview: History: elective intubation for cardiac surgery Assessment: minimal ventilatory settings; easy airway Plan: WTE when clinically appropriate Stress hyperglycemia 09/12/2020 09/16/2020 Overview: History: No hx of DM. No results found for: HBA1C Assessment: Perioperative insulin resistance and exacerbation of hyperglycemia. Plan: Resolving. Stop accuchecks and SSI documented as of this encounter (statuses as of 01/18/2022) [facility] Narrative* Problem Noted Date Resolved Date On mechanically assisted ventilation 09/12/2020 09/13/2020 Overview: History: elective intubation for cardiac surgery Assessment: minimal ventilatory settings; easy airway Plan: WTE when clinically appropriate Stress hyperglycemia 09/12/2020 09/16/2020 Overview: History: No hx of DM. No results found for: HBA1C Assessment: Perioperative insulin resistance and exacerbation of hyperglycemia. Plan: Resolving. Stop accuchecks and SSI documented as of this encounter (statuses as of 01/23/2022) [facility] Narrative* Problem Noted Date Resolved Date On mechanically assisted ventilation 09/12/2020 09/13/2020 Overview: History: elective intubation for cardiac surgery Assessment: minimal ventilatory settings; easy airway Plan: WTE when clinically appropriate Stress hyperglycemia 09/12/2020 09/16/2020 Overview: History: No hx of DM. No results found for: HBA1C Assessment: Perioperative insulin resistance and exacerbation of hyperglycemia. Plan: Resolving. Stop accuchecks and SSI documented as of this encounter (statuses as of 02/06/2022) [facility] Narrative* Problem Noted Date Resolved Date On mechanically assisted ventilation 09/12/2020 09/13/2020 Overview: History: elective intubation for cardiac surgery Assessment: minimal ventilatory settings; easy airway Plan: WTE when clinically appropriate Stress hyperglycemia 09/12/2020 09/16/2020 Overview: History: No hx of DM. No results found for: HBA1C Assessment: Perioperative insulin resistance and exacerbation of hyperglycemia. Plan: Resolving. Stop accuchecks and SSI documented as of this encounter (statuses as of 02/08/2022) [facility] Narrative* Problem Noted Date Resolved Date On mechanically assisted ventilation 09/12/2020 09/13/2020 Overview: History: elective intubation for cardiac surgery Assessment: minimal ventilatory settings; easy airway Plan: WTE when clinically appropriate Stress hyperglycemia 09/12/2020 09/16/2020 Overview: History: No hx of DM. No results found for: HBA1C Assessment: Perioperative insulin resistance and exacerbation of hyperglycemia. Plan: Resolving. Stop accuchecks and SSI documented as of this encounter (statuses as of 02/22/2022) [facility] Narrative* Problem Noted Date Resolved Date On mechanically assisted ventilation 09/12/2020 09/13/2020 Overview: History: elective intubation for cardiac surgery Assessment: minimal ventilatory settings; easy airway Plan: WTE when clinically appropriate Stress hyperglycemia 09/12/2020 09/16/2020 Overview: History: No hx of DM. No results found for: HBA1C Assessment: Perioperative insulin resistance and exacerbation of hyperglycemia. Plan: Resolving. Stop accuchecks and SSI documented as of this encounter (statuses as of 03/01/2022) [facility] Narrative* Problem Noted Date Resolved Date On mechanically assisted ventilation 09/12/2020 09/13/2020 Overview: History: elective intubation for cardiac surgery Assessment: minimal ventilatory settings; easy airway Plan: WTE when clinically appropriate Stress hyperglycemia 09/12/2020 09/16/2020 Overview: History: No hx of DM. No results found for: HBA1C Assessment: Perioperative insulin resistance and exacerbation of hyperglycemia. Plan: Resolving. Stop accuchecks and SSI documented as of this encounter (statuses as of 03/15/2022) [facility] Narrative* Problem Noted Date Resolved Date On mechanically assisted ventilation 09/12/2020 09/13/2020 Overview: History: elective intubation for cardiac surgery Assessment: minimal ventilatory settings; easy airway Plan: WTE when clinically appropriate Stress hyperglycemia 09/12/2020 09/16/2020 Overview: History: No hx of DM. No results found for: HBA1C Assessment: Perioperative insulin resistance and exacerbation of hyperglycemia. Plan: Resolving. Stop accuchecks and SSI documented as of this encounter (statuses as of 04/12/2022) [facility] Narrative* Problem Noted Date Resolved Date On mechanically assisted ventilation 09/12/2020 09/13/2020 Overview: History: elective intubation for cardiac surgery Assessment: minimal ventilatory settings; easy airway Plan: WTE when clinically appropriate Stress hyperglycemia 09/12/2020 09/16/2020 Overview: History: No hx of DM. No results found for: HBA1C Assessment: Perioperative insulin resistance and exacerbation of hyperglycemia. Plan: Resolving. Stop accuchecks and SSI documented as of this encounter (statuses as of 04/29/2022) [facility] Narrative* Problem Noted Date Resolved Date On mechanically assisted ventilation 09/12/2020 09/13/2020 Overview: History: elective intubation for cardiac surgery Assessment: minimal ventilatory settings; easy airway Plan: WTE when clinically appropriate Stress hyperglycemia 09/12/2020 09/16/2020 Overview: History: No hx of DM. No results found for: HBA1C Assessment: Perioperative insulin resistance and exacerbation of hyperglycemia. Plan: Resolving. Stop accuchecks and SSI documented as of this encounter (statuses as of 05/02/2022) [facility] N[facility]* Problem Noted Date Resolved Date On mechanically assisted ventilation 09/12/2020 09/13/2020 Overview: History: elective intubation for cardiac surgery Assessment: minimal ventilatory settings; easy airway Plan: WTE when clinically appropriate Stress hyperglycemia 09/12/2020 09/16/2020 Overview: History: No hx of DM. No results found for: HBA1C Assessment: Perioperative insulin resistance and exacerbation of hyperglycemia. Plan: Resolving. Stop accuchecks and SSI documented as of this encounter (statuses as of 05/14/2022) [facility]21 History of Past illness Narrative* Problem Noted Date Resolved Date On mechanically assisted ventilation 09/12/2020 09/13/2020 Overview: History: elective intubation for cardiac surgery Assessment: minimal ventilatory settings; easy airway Plan: WTE when clinically appropriate Stress hyperglycemia 09/12/2020 09/16/2020 Overview: History: No hx of DM. No results found for: HBA1C Assessment: Perioperative insulin resistance and exacerbation of hyperglycemia. Plan: Resolving. Stop accuchecks and SSI documented as of this encounter (statuses as of 05/17/2022) [facility]21 History of Past illness Narrative* Problem Noted Date Resolved Date On mechanically assisted ventilation 09/12/2020 09/13/2020 Overview: History: elective intubation for cardiac surgery Assessment: minimal ventilatory settings; easy airway Plan: WTE when clinically appropriate Stress hyperglycemia 09/12/2020 09/16/2020 Overview: History: No hx of DM. No results found for: HBA1C Assessment: Perioperative insulin resistance and exacerbation of hyperglycemia. Plan: Resolving. Stop accuchecks and SSI documented as of this encounter (statuses as of 05/28/2022) [facility] History of Past illness Narrative* Problem Noted Date Resolved Date On mechanically assisted ventilation 09/12/2020 09/13/2020 Overview: History: elective intubation for cardiac surgery Assessment: minimal ventilatory settings; easy airway Plan: WTE when clinically appropriate Stress hyperglycemia 09/12/2020 09/16/2020 Overview: History: No hx of DM. No results found for: HBA1C Assessment: Perioperative insulin resistance and exacerbation of hyperglycemia. Plan: Resolving. Stop accuchecks and SSI documented as of this encounter (statuses as of 06/13/2022) [facility] History of Past illness Narrative* Problem Noted Date Resolved Date On mechanically assisted ventilation 09/12/2020 09/13/2020 Overview: History: elective intubation for cardiac surgery Assessment: minimal ventilatory settings; easy airway Plan: WTE when clinically appropriate Stress hyperglycemia 09/12/2020 09/16/2020 Overview: History: No hx of DM. No results found for: HBA1C Assessment: Perioperative insulin resistance and exacerbation of hyperglycemia. Plan: Resolving. Stop accuchecks and SSI documented as of this encounter (statuses as of 06/13/2022) [facility] History of Past illness Narrative* Problem Noted Date Resolved Date On mechanically assisted ventilation 09/12/2020 09/13/2020 Overview: History: elective intubation for cardiac surgery Assessment: minimal ventilatory settings; easy airway Plan: WTE when clinically appropriate Stress hyperglycemia 09/12/2020 09/16/2020 Overview: History: No hx of DM. No results found for: HBA1C Assessment: Perioperative insulin resistance and exacerbation of hyperglycemia. Plan: Resolving. Stop accuchecks and SSI documented as of this encounter (statuses as of 06/18/2022) [facility] History of Past illness Narrative* Problem Noted Date Resolved Date On mechanically assisted ventilation 09/12/2020 09/13/2020 Overview: History: elective intubation for cardiac surgery Assessment: minimal ventilatory settings; easy airway Plan: WTE when clinically appropriate Stress hyperglycemia 09/12/2020 09/16/2020 Overview: History: No hx of DM. No results found for: HBA1C Assessment: Perioperative insulin resistance and exacerbation of hyperglycemia. Plan: Resolving. Stop accuchecks and SSI documented as of this encounter (statuses as of 06/21/2022) [facility] History of Past illness Narrative* Problem Noted Date Resolved Date On mechanically assisted ventilation 09/12/2020 09/13/2020 Overview: History: elective intubation for cardiac surgery Assessment: minimal ventilatory settings; easy airway Plan: WTE when clinically appropriate Stress hyperglycemia 09/12/2020 09/16/2020 Overview: History: No hx of DM. No results found for: HBA1C Assessment: Perioperative insulin resistance and exacerbation of hyperglycemia. Plan: Resolving. Stop accuchecks and SSI documented as of this encounter (statuses as of 06/25/2022) [facility] History of Past illness Narrative* Problem Noted Date Resolved Date On mechanically assisted ventilation 09/12/2020 09/13/2020 Overview: History: elective intubation for cardiac surgery Assessment: minimal ventilatory settings; easy airway Plan: WTE when clinically appropriate Stress hyperglycemia 09/12/2020 09/16/2020 Overview: History: No hx of DM. No results found for: HBA1C Assessment: Perioperative insulin resistance and exacerbation of hyperglycemia. Plan: Resolving. Stop accuchecks and SSI documented as of this encounter (statuses as of 06/27/2022) [facility] History of Past illness Narrative* Problem Noted Date Resolved Date On mechanically assisted ventilation 09/12/2020 09/13/2020 Overview: History: elective intubation for cardiac surgery Assessment: minimal ventilatory settings; easy airway Plan: WTE when clinically appropriate Stress hyperglycemia 09/12/2020 09/16/2020 Overview: History: No hx of DM. No results found for: HBA1C Assessment: Perioperative insulin resistance and exacerbation of hyperglycemia. Plan: Resolving. Stop accuchecks and SSI documented as of this encounter (statuses as of 07/18/2022) [facility] History of Past illness Narrative* Problem Noted Date Resolved Date On mechanically assisted ventilation 09/12/2020 09/13/2020 Overview: History: elective intubation for cardiac surgery Assessment: minimal ventilatory settings; easy airway Plan: WTE when clinically appropriate Stress hyperglycemia 09/12/2020 09/16/2020 Overview: History: No hx of DM. No results found for: HBA1C Assessment: Perioperative insulin resistance and exacerbation of hyperglycemia. Plan: Resolving. Stop accuchecks and SSI documented as of this encounter (statuses as of 07/19/2022) [facility] History of Past illness Narrative* Problem Noted Date Resolved Date On mechanically assisted ventilation 09/12/2020 09/13/2020 Overview: History: elective intubation for cardiac surgery Assessment: minimal ventilatory settings; easy airway Plan: WTE when clinically appropriate Stress hyperglycemia 09/12/2020 09/16/2020 Overview: History: No hx of DM. No results found for: HBA1C Assessment: Perioperative insulin resistance and exacerbation of hyperglycemia. Plan: Resolving. Stop accuchecks and SSI documented as of this encounter (statuses as of 2022) [facility] History of Past illness Narrative* Problem Noted Date Resolved Date On mechanically assisted ventilation 09/12/2020 09/13/2020 Overview: History: elective intubation for cardiac surgery Assessment: minimal ventilatory settings; easy airway Plan: WTE when clinically appropriate Stress hyperglycemia 09/12/2020 09/16/2020 Overview: History: No hx of DM. No results found for: HBA1C Assessment: Perioperative insulin resistance and exacerbation of hyperglycemia. Plan: Resolving. Stop accuchecks and SSI documented as of this encounter (statuses as of 08/23/2022) [facility] History of Past illness Narrative* Problem Noted Date Resolved Date On mechanically assisted ventilation 09/12/2020 09/13/2020 Overview: History: elective intubation for cardiac surgery Assessment: minimal ventilatory settings; easy airway Plan: WTE when clinically appropriate Stress hyperglycemia 09/12/2020 09/16/2020 Overview: History: No hx of DM. No results found for: HBA1C Assessment: Perioperative insulin resistance and exacerbation of hyperglycemia. Plan: Resolving. Stop accuchecks and SSI documented as of this encounter (statuses as of 08/26/2022) [facility] History of Past illness Narrative* Problem Noted Date Resolved Date On mechanically assisted ventilation 09/12/2020 09/13/2020 Overview: History: elective intubation for cardiac surgery Assessment: minimal ventilatory settings; easy airway Plan: WTE when clinically appropriate Stress hyperglycemia 09/12/2020 09/16/2020 Overview: History: No hx of DM. No results found for: HBA1C Assessment: Perioperative insulin resistance and exacerbation of hyperglycemia. Plan: Resolving. Stop accuchecks and SSI documented as of this encounter (statuses as of 09/20/2022) [facility] History of Past illness Narrative* Problem Noted Date Resolved Date On mechanically assisted ventilation 09/12/2020 09/13/2020 Overview: History: elective intubation for cardiac surgery Assessment: minimal ventilatory settings; easy airway Plan: WTE when clinically appropriate Stress hyperglycemia 09/12/2020 09/16/2020 Overview: History: No hx of DM. No results found for: HBA1C Assessment: Perioperative insulin resistance and exacerbation of hyperglycemia. Plan: Resolving. Stop accuchecks and SSI documented as of this encounter (statuses as of 10/25/2022) [facility] History of Past illness Narrative* Problem Noted Date Diagnosed Date Resolved Date On mechanically assisted ventilation 09/12/2020 09/13/2020 Overview: History: elective intubation for cardiac surgery Assessment: minimal ventilatory settings; easy airway Plan: WTE when clinically appropriate Stress hyperglycemia 09/12/2020 021 Overview: History: No hx of DM. No results found for: HBA1C Assessment: Perioperative insulin resistance and exacerbation of hyperglycemia. Plan: Resolving. Stop accuchecks and SSI documented as of this encounter (statuses as of 10/28/2022) [facility] History of Past illness Narrative* Problem Noted Date Diagnosed Date Resolved Date On mechanically assisted ventilation 09/12/2020 09/13/2020 Overview: History: elective intubation for cardiac surgery Assessment: minimal ventilatory settings; easy airway Plan: WTE when clinically appropriate Stress hyperglycemia 09/12/2020 021 Overview: History: No hx of DM. No results found for: HBA1C Assessment: Perioperative insulin resistance and exacerbation of hyperglycemia. Plan: Resolving. Stop accuchecks and SSI documented as of this encounter (statuses as of 11/21/2022) [facility] History of Past illness Narrative* Problem Noted Date Diagnosed Date Resolved Date On mechanically assisted ventilation 09/12/2020 09/13/2020 Overview: History: elective intubation for cardiac surgery Assessment: minimal ventilatory settings; easy airway Plan: WTE when clinically appropriate Stress hyperglycemia 09/12/2020 Overview: History: No hx of DM. No results found for: HBA1C Assessment: Perioperative insulin resistance and exacerbation of hyperglycemia. Plan: Resolving. Stop accuchecks and SSI documented as of this encounter (statuses as of 12/10/2022) [facility] History of Past illness Narrative* Problem Noted Date Diagnosed Date Resolved Date On mechanically assisted ventilation 09/12/2020 09/13/2020 Overview: History: elective intubation for cardiac surgery Assessment: minimal ventilatory settings; easy airway Plan: WTE when clinically appropriate Stress hyperglycemia 09/12/2020 021 Overview: History: No hx of DM. No results found for: HBA1C Assessment: Perioperative insulin resistance and exacerbation of hyperglycemia. Plan: Resolving. Stop accuchecks and SSI documented as of this encounter (statuses as of 01/01/2023) [facility] History of Past illness Narrative* Problem Noted Date Diagnosed Date Resolved Date On mechanically assisted ventilation 09/12/2020 09/13/2020 Overview: History: elective intubation for cardiac surgery Assessment: minimal ventilatory settings; easy airway Plan: WTE when clinically appropriate Stress hyperglycemia 09/12/2020 Overview: History: No hx of DM. No results found for: HBA1C Assessment: Perioperative insulin resistance and exacerbation of hyperglycemia. Plan: Resolving. Stop accuchecks and SSI documented as of this encounter (statuses as of 01/25/2023) [facility] History of Past illness Narrative* Problem Noted Date Diagnosed Date Resolved Date On mechanically assisted ventilation 09/12/2020 09/13/2020 Overview: History: elective intubation for cardiac surgery Assessment: minimal ventilatory settings; easy airway Plan: WTE when clinically appropriate Stress hyperglycemia 09/12/2020 021 Overview: History: No hx of DM. No results found for: HBA1C Assessment: Perioperative insulin resistance and exacerbation of hyperglycemia. Plan: Resolving. Stop accuchecks and SSI documented as of this encounter (statuses as of 02/03/2023) [facility] History of Past illness Narrative* Problem Noted Date Diagnosed Date Resolved Date On mechanically assisted ventilation 09/12/2020 09/13/2020 Overview: History: elective intubation for cardiac surgery Assessment: minimal ventilatory settings; easy airway Plan: WTE when clinically appropriate Stress hyperglycemia 09/12/2020 021 Overview: History: No hx of DM. No results found for: HBA1C Assessment: Perioperative insulin resistance and exacerbation of hyperglycemia. Plan: Resolving. Stop accuchecks and SSI documented as of this encounter (statuses as of 02/07/2023) [facility] History of Past illness Narrative* Problem Noted Date Diagnosed Date Resolved Date On mechanically assisted ventilation 09/12/2020 09/13/2020 Overview: History: elective intubation for cardiac surgery Assessment: minimal ventilatory settings; easy airway Plan: WTE when clinically appropriate Stress hyperglycemia 09/12/2020 021 Overview: History: No hx of DM. No results found for: HBA1C Assessment: Perioperative insulin resistance and exacerbation of hyperglycemia. Plan: Resolving. Stop accuchecks and SSI documented as of this encounter (statuses as of 02/26/2023) [facility] History of Past illness Narrative* Problem Noted Date Diagnosed Date Resolved Date On mechanically assisted ventilation 09/12/2020 09/13/2020 Overview: History: elective intubation for cardiac surgery Assessment: minimal ventilatory settings; easy airway Plan: WTE when clinically appropriate Stress hyperglycemia 09/12/2020 021 Overview: History: No hx of DM. No results found for: HBA1C Assessment: Perioperative insulin resistance and exacerbation of hyperglycemia. Plan: Resolving. Stop accuchecks and SSI documented as of this encounter (statuses as of 03/17/2023) [facility] History of Past illness Narrative* Problem Noted Date Diagnosed Date Resolved Date On mechanically assisted ventilation 09/12/2020 09/13/2020 Overview: History: elective intubation for cardiac surgery Assessment: minimal ventilatory settings; easy airway Plan: WTE when clinically appropriate Stress hyperglycemia 09/12/2020 021 Overview: History: No hx of DM. No results found for: HBA1C Assessment: Perioperative insulin resistance and exacerbation of hyperglycemia. Plan: Resolving. Stop accuchecks and SSI documented as of this encounter (statuses as of 06/02/2023) [facility] History of Past illness Narrative* Problem Noted Date Diagnosed Date Resolved Date On mechanically assisted ventilation 09/12/2020 09/13/2020 Overview: History: elective intubation for cardiac surgery Assessment: minimal ventilatory settings; easy airway Plan: WTE when clinically appropriate Stress hyperglycemia 09/12/2020 021 Overview: History: No hx of DM. No results found for: HBA1C Assessment: Perioperative insulin resistance and exacerbation of hyperglycemia. Plan: Resolving. Stop accuchecks and SSI documented as of this encounter (statuses as of 06/18/2023) [facility] History of Past illness Narrative* Problem Noted Date Diagnosed Date Resolved Date On mechanically assisted ventilation 09/12/2020 09/13/2020 Overview: History: elective intubation for cardiac surgery Assessment: minimal ventilatory settings; easy airway Plan: WTE when clinically appropriate Stress hyperglycemia 09/12/2020 021 Overview: History: No hx of DM. No results found for: HBA1C Assessment: Perioperative insulin resistance and exacerbation of hyperglycemia. Plan: Resolving. Stop accuchecks and SSI documented as of this encounter (statuses as of 06/19/2023) [facility] History of Past illness Narrative* Problem Noted Date Diagnosed Date Resolved Date On mechanically assisted ventilation 09/12/2020 09/13/2020 Overview: History: elective intubation for cardiac surgery Assessment: minimal ventilatory settings; easy airway Plan: WTE when clinically appropriate Stress hyperglycemia 09/12/2020 021 Overview: History: No hx of DM. No results found for: HBA1C Assessment: Perioperative insulin resistance and exacerbation of hyperglycemia. Plan: Resolving. Stop accuchecks and SSI documented as of this encounter (statuses as of 06/23/2023) [facility] History of Past illness Narrative* Problem Noted Date Diagnosed Date Resolved Date On mechanically assisted ventilation 09/12/2020 09/13/2020 Overview: History: elective intubation for cardiac surgery Assessment: minimal ventilatory settings; easy airway Plan: WTE when clinically appropriate Stress hyperglycemia 09/12/2020 Overview: History: No hx of DM. No results found for: HBA1C Assessment: Perioperative insulin resistance and exacerbation of hyperglycemia. Plan: Resolving. Stop accuchecks and SSI documented as of this encounter (statuses as of 08/01/2023) [facility] History of Past illness Narrative* Problem Noted Date Diagnosed Date Resolved Date On mechanically assisted ventilation 09/12/2020 09/13/2020 Overview: History: elective intubation for cardiac surgery Assessment: minimal ventilatory settings; easy airway Plan: WTE when clinically appropriate Stress hyperglycemia 09/12/2020 021 Overview: History: No hx of DM. No results found for: HBA1C Assessment: Perioperative insulin resistance and exacerbation of hyperglycemia. Plan: Resolving. Stop accuchecks and SSI documented as of this encounter (statuses as of 08/08/2023) [facility] current use of anticoagulant- Primary Long-term (current) use of anticoagulants H/O mechanical aortic valve replacement Heart valve replaced by other means [facility] detention current use of anticoagulant- Primary Long-term (current) use of anticoagulants H/O mechanical aortic valve replacement Heart valve replaced by other means [facility] 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 Long-term (current) use of anticoagulants H/O mechanical aortic valve replacement Heart valve replaced by other means [facility] 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 Long-term (current) use of anticoagulants H/O mechanical aortic valve replacement Heart valve replaced by other means [facility] Diagnosis Onset Date Resolution Status Acute sinusitis [facility] Work Phone: evaluation note* Diagnosis PVC's (premature ventricular contractions)- Primary Other premature beats documented in this encounter [facility] noteNo assessment information availableWKind[facility] Work Phone: evaluation note* Diagnosis H/O mechanical aortic valve replacement- Primary Heart valve replaced by other means [facility] Diagnosis detention current use of anticoagulant- Primary Long-term (current) use of anticoagulants H/O mechanical aortic valve replacement Heart valve replaced by other means [facility] H/O mechanical aortic valve replacement- Primary Heart valve replaced by other means Class 1 obesity due to excess calories with body mass index (BMI) of 34.0 to 34.9 in adult, unspecified whether serious comorbidity present S/P AVR (aortic valve replacement) Heart valve replaced by other means Essential hypertension Unspecified essential hypertension Hyperlipidemia, unspecified hyperlipidemia type Bicuspid aortic valve Congenital insufficiency of aortic valve [facility] Diagnosis detention current use of anticoagulant- Primary Long-term (current) use of anticoagulants H/O mechanical aortic valve replacement Heart valve replaced by other means [facility] Diagnosis Onset Date Resolution Status Acute pharyngitis, unspecified acute Contact with and (suspected) exposure to other viral communicable diseases [facility] Work Phone: evaluation note* 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 Long-term (current) use of anticoagulants H/O mechanical aortic valve replacement Heart valve replaced by other means documented in this encounter [facility] note* 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 Long-term (current) use of anticoagulants H/O mechanical aortic valve replacement [facility] replaced by other means [facility] Class 1 obesity due to excess calories with body mass index (BMI) of 34.0 to 34.9 in adult, unspecified whether serious comorbidity present- Primary H/O mechanical aortic valve replacement Heart valve replaced by other means Hyperlipidemia, unspecified hyperlipidemia type [facility] Diagnosis Tachycardia- Primary Tachycardia, unspecified Valvular heart disease Endocarditis, valve unspecified, unspecified cause [facility] 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 Long-term (current) use of anticoagulants H/O mechanical aortic valve replacement Heart valve replaced by other means [facility] Diagnosis Tachycardia- Primary Tachycardia, unspecified [facility] Diagnosis Class 1 obesity due to excess calories with body mass index (BMI) of 34.0 to 34.9 in adult, unspecified whether serious comorbidity present [facility] 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 Long-term (current) use of anticoagulants H/O mechanical aortic valve replacement Heart valve replaced by other means [facility] Diagnosis Class 1 obesity due to excess calories with body mass index (BMI) of 34.0 to 34.9 in adult, unspecified whether serious comorbidity present [facility] Class 1 obesity due to excess calories with body mass index (BMI) of 34.0 to 34.9 in adult, unspecified whether serious comorbidity present [facility] detention current use of anticoagulant- Primary Long-term (current) use of anticoagulants H/O mechanical aortic valve replacement Heart valve replaced by other means [facility] Diagnosis Class 1 obesity due to excess calories with body mass index (BMI) of 34.0 to 34.9 in adult, unspecified whether serious comorbidity present [facility] Diagnosis Tachycardia- Primary Tachycardia, unspecified [facility] H/O mechanical aortic valve replacement- Primary Heart valve replaced by other means History of bicuspid aortic valve Personal history of other diseases of circulatory system documented in this encounter [facility] note* Diagnosis detention current use of anticoagulant- Primary Long-term (current) use of anticoagulants H/O mechanical aortic valve replacement Heart valve replaced by other means documented in this encounter [facility] note* Diagnosis Hyperlipidemia, unspecified hyperlipidemia type- Primary documented in this encounter [facility] note* Diagnosis Class 1 obesity due to excess calories with body mass index (BMI) of 34.0 to 34.9 in adult, unspecified whether serious comorbidity present documented in this encounter [facility] note* 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 Long-term (current) use of anticoagulants H/O mechanical aortic valve replacement Heart valve replaced by other means documented in this encounter [facility] for referral (narrative)* Outpatient Procedure (Routine) - Authorized Specialty Diagnoses / Procedures Referred By Contac t Referred To Contact [facility] Diagnoses H/O mechanical aortic valve replacement Procedures ECG COMPLETE ECG ROUTINE ECG W/LEAST 12 LDS W/I&R Juan Willis MD [address] [id number] [facility] [place] [address] Referral ID Status Reason Start Date Expiration Date Visits Requested Visits Authorized [id number] Authorized Auto-Generat ed Referral 05/13/2022 05/13/2023 1 1 [facility] for referral (narrative)No reason for referral information availableWKind[facility] Work Phone: Advance Directives No Advanced Directives Records FoundDocuments on File Type Date Recorded 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 Advance Directive(s) 09/08/2020 2:50 PM Advance Directive(s) 08/31/2020 2:13 PM Ma in [place] Advance Directive Response Recorded Date/ Time Advance Directives No February 06, 2015 10:18am Living Will No October 27, 2020 2 :06pm Power of Anesthesiologist Attending No October 27, 2020 2:06pm Documents on File Type Date Recorded 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 Advance Directive(s) 09/08/2020 2:50 PM Documents on File Type Date Recorded 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 Advance Directive(s) 09/08/2020 2:50 PM Advance Directive Response Recorded Date/ Time Advance Directives No February 06, 2015 9:18am Living Will No October 27, 2020 1 :06pm Power of Anesthesiologist Attending No October 27, 2020 1:06pm Advance Directive Response Recorded Date/ Time Name of Medical Power of Anesthesiologist Attending Sailaja November 10, 2022 2:31pm Advance Directives No February 06, 2015 10:18am Living Will Yes November 10, 2022 2:31pm Power of Anesthesiologist Attending Yes November 10 2:31pm Advance Directive Response Recorded Date/ Time Name of Medical Power of Anesthesiologist Attending Sailaja November 10, 2022 1:31pm Advance Directives No February 06, 2015 9:18am Living Will Yes November 10, 2022 1:31pm Power of Anesthesiologist Attending Yes November 10 1:31pm Advance Directive Response Recorded Date/ Time Advance Directives No February 06, 2015 10:18am Chief Complaint and Reason for Visit Chief Complaint CONCERN FOR SINUS IN FECTION Reason for Visit Acute sinusitis Chief Complaint SORE THROAT foot injury Reason for Visit Acute pharyngitis, u nspecified Contact with and (suspected) exposure to other viral communicable diseases Chief Complaint foot injury Chief Complaint Admit Date PSA/LEFT HIP PAIN November 11, 2024 12:2 3pm Family History No Family History Records Found Relationship Condition Age at Onset Recorded Date/T debi father Hypertension Unknown Alzheimer's disease Unknown mother Malignant neoplasm of breast Unknown Reason for Referral Specialty Diagnoses / Procedures Referred By Contac t Referred To Contact [facility] Diagnoses H/O mechanical aortic valve replacement Procedures CARDIOVASCULAR MEDICINE OP FOLLOW UP APPT ORDER Kaleb Eduardo MD [address] [place] [address] [facility] [address] [place] [address] Referral ID Status Reason Start Date Expiration Date Visits Requested Visits Authorized [id number] Ref Not Required PCP Requested Referral 07/16/2023 06/16/2024 1 1 Specialty Diagnoses / Procedures Referred By Contac t Referred To Contact [facility] Diagnoses H/O mechanical aortic valve replacement Procedures ECHO ECHO TTHRC R-T 2D W/WOM-MODE COMPL SPEC&COLR D Kaleb Eduardo MD [address] [place] [address] [address] Referral ID Status Reason Start Date Expiration Date Visits Requested Visits Authorized [id number] Authorized Auto-Generat ed Referral 06/17/2023 06/16/2024 1 1 Specialty Diagnoses / Procedures Referred By Contac t Referred To Contact [facility] Procedures CARDIOVASCULAR MEDICINE [place] [address] [place] [address] [address] Referral ID Status Reason Start Date Expiration Date Visits Requested Visits Authorized [id number] Ref Not Required PCP Requested Referral 4 07/31/2024 1 1 Summary Purpose Additional Source Comments Source Comments (unrecognize d section and content) In the event this informatio n is protected by the Federal Confidentiality of Alcohol and Drug Abuse Patient Records regulations: The Federal rules restrict any use of the information to criminally investigate or prosecute any alcohol or drug abuse patient.[facility] HospitalIn the event this information is protected by the Federal Confidentiality of Alcohol and Drug Abuse Patient Records regulations: The Federal rules restrict any use of the information to criminally investigate or prosecute any alcohol or drug abuse patient.[facility] HospitalIn the event this information is protected by the Federal Confidentiality of Alcohol and Drug Abuse Patient Records regulations: The Federal rules restrict any use of the information to criminally investigate or prosecute any alcohol or drug abuse patient.[facility] HospitalIn the event this information is protected by the Federal Confidentiality of Alcohol and Drug Abuse Patient Records regulations: The Federal rules restrict any use of the information to criminally investigate or prosecute any alcohol or drug abuse patient.[facility] HospitalIn the event this information is protected by the Federal Confidentiality of Alcohol and Drug Abuse Patient Records regulations: The Federal rules restrict any use of the information to criminally investigate or prosecute any alcohol or drug abuse patient.[facility] HospitalIn the event this information is protected by the Federal Confidentiality of Alcohol and Drug Abuse Patient Records regulations: The Federal rules restrict any use of the information to criminally investigate or prosecute any alcohol or drug abuse patient.[facility] HospitalIn the event this information is protected by the Federal Confidentiality of Alcohol and Drug Abuse Patient Records regulations: The Federal rules restrict any use of the information to criminally investigate or prosecute any alcohol or drug abuse patient.[facility] HospitalIn the event this information is protected by the Federal Confidentiality of Alcohol and Drug Abuse Patient Records regulations: The Federal rules restrict any use of the information to criminally investigate or prosecute any alcohol or drug abuse patient.[facility] HospitalIn the event this information is protected by the Federal Confidentiality of Alcohol and Drug Abuse Patient Records regulations: The Federal rules restrict any use of the information to criminally investigate or prosecute any alcohol or drug abuse patient.[facility] HospitalIn the event this information is protected by the Federal Confidentiality of Alcohol and Drug Abuse Patient Records regulations: The Federal rules restrict any use of the information to criminally investigate or prosecute any alcohol or drug abuse patient.[facility] HospitalIn the event this information is protected by the Federal Confidentiality of Alcohol and Drug Abuse Patient Records regulations: The Federal rules restrict any use of the information to criminally investigate or prosecute any alcohol or drug abuse patient.[facility] HospitalIn the event this information is protected by the Federal Confidentiality of Alcohol and Drug Abuse Patient Records regulations: The Federal rules restrict any use of the information to criminally investigate or prosecute any alcohol or drug abuse patient.[facility] HospitalIn the event this information is protected by the Federal Confidentiality of Alcohol and Drug Abuse Patient Records regulations: The Federal rules restrict any use of the information to criminally investigate or prosecute any alcohol or drug abuse patient.[facility] HospitalIn the event this information is protected by the Federal Confidentiality of Alcohol and Drug Abuse Patient Records regulations: The Federal rules restrict any use of the information to criminally investigate or prosecute any alcohol or drug abuse patient.[facility] HospitalIn the event this information is protected by the Federal Confidentiality of Alcohol and Drug Abuse Patient Records regulations: The Federal rules restrict any use of the information to criminally investigate or prosecute any alcohol or drug abuse patient.[facility] HospitalIn the event this information is protected by the Federal Confidentiality of Alcohol and Drug Abuse Patient Records regulations: The Federal rules restrict any use of the information to criminally investigate or prosecute any alcohol or drug abuse patient.[facility] HospitalIn the event this information is protected by the Federal Confidentiality of Alcohol and Drug Abuse Patient Records regulations: The Federal rules restrict any use of the information to criminally investigate or prosecute any alcohol or drug abuse patient.[facility] HospitalIn the event this information is protected by the Federal Confidentiality of Alcohol and Drug Abuse Patient Records regulations: The Federal rules restrict any use of the information to criminally investigate or prosecute any alcohol or drug abuse patient.[facility] HospitalIn the event this information is protected by the Federal Confidentiality of Alcohol and Drug Abuse Patient Records regulations: The Federal rules restrict any use of the information to criminally investigate or prosecute any alcohol or drug abuse patient.[facility] HospitalIn the event this information is protected by the Federal Confidentiality of Alcohol and Drug Abuse Patient Records regulations: The Federal rules restrict any use of the information to criminally investigate or prosecute any alcohol or drug abuse patient.[facility] HospitalIn the event this information is protected by the Federal Confidentiality of Alcohol and Drug Abuse Patient Records regulations: The Federal rules restrict any use of the information to criminally investigate or prosecute any alcohol or drug abuse patient.[facility] HospitalIn the event this information is protected by the Federal Confidentiality of Alcohol and Drug Abuse Patient Records regulations: The Federal rules restrict any use of the information to criminally investigate or prosecute any alcohol or drug abuse patient.[facility] HospitalIn the event this information is protected by the Federal Confidentiality of Alcohol and Drug Abuse Patient Records regulations: The Federal rules restrict any use of the information to criminally investigate or prosecute any alcohol or drug abuse patient.[facility] HospitalIn the event this information is protected by the Federal Confidentiality of Alcohol and Drug Abuse Patient Records regulations: The Federal rules restrict any use of the information to criminally investigate or prosecute any alcohol or drug abuse patient.[facility] HospitalIn the event this information is protected by the Federal Confidentiality of Alcohol and Drug Abuse Patient Records regulations: The Federal rules restrict any use of the information to criminally investigate or prosecute any alcohol or drug abuse patient.[facility] HospitalIn the event this information is protected by the Federal Confidentiality of Alcohol and Drug Abuse Patient Records regulations: The Federal rules restrict any use of the information to criminally investigate or prosecute any alcohol or drug abuse patient.[facility] HospitalIn the event this information is protected by the Federal Confidentiality of Alcohol and Drug Abuse Patient Records regulations: The Federal rules restrict any use of the information to criminally investigate or prosecute any alcohol or drug abuse patient.[facility] HospitalIn the event this information is protected by the Federal Confidentiality of Alcohol and Drug Abuse Patient Records regulations: The Federal rules restrict any use of the information to criminally investigate or prosecute any alcohol or drug abuse patient.[facility] HospitalIn the event this information is protected by the Federal Confidentiality of Alcohol and Drug Abuse Patient Records regulations: The Federal rules restrict any use of the information to criminally investigate or prosecute any alcohol or drug abuse patient.[facility] HospitalIn the event this information is protected by the Federal Confidentiality of Alcohol and Drug Abuse Patient Records regulations: The Federal rules restrict any use of the information to criminally investigate or prosecute any alcohol or drug abuse patient.[facility] HospitalIn the event this information is protected by the Federal Confidentiality of Alcohol and Drug Abuse Patient Records regulations: The Federal rules restrict any use of the information to criminally investigate or prosecute any alcohol or drug abuse patient.[facility] HospitalIn the event this information is protected by the Federal Confidentiality of Alcohol and Drug Abuse Patient Records regulations: The Federal rules restrict any use of the information to criminally investigate or prosecute any alcohol or drug abuse patient.[facility] HospitalIn the event this information is protected by the Federal Confidentiality of Alcohol and Drug Abuse Patient Records regulations: The Federal rules restrict any use of the information to criminally investigate or prosecute any alcohol or drug abuse patient.[facility] HospitalIn the event this information is protected by the Federal Confidentiality of Alcohol and Drug Abuse Patient Records regulations: The Federal rules restrict any use of the information to criminally investigate or prosecute any alcohol or drug abuse patient.[facility] HospitalIn the event this information is protected by the Federal Confidentiality of Alcohol and Drug Abuse Patient Records regulations: The Federal rules restrict any use of the information to criminally investigate or prosecute any alcohol or drug abuse patient.[facility] HospitalIn the event this information is protected by the Federal Confidentiality of Alcohol and Drug Abuse Patient Records regulations: The Federal rules restrict any use of the information to criminally investigate or prosecute any alcohol or drug abuse patient.[facility] HospitalIn the event this information is protected by the Federal Confidentiality of Alcohol and Drug Abuse Patient Records regulations: The Federal rules restrict any use of the information to criminally investigate or prosecute any alcohol or drug abuse patient.[facility] HospitalIn the event this information is protected by the Federal Confidentiality of Alcohol and Drug Abuse Patient Records regulations: The Federal rules restrict any use of the information to criminally investigate or prosecute any alcohol or drug abuse patient.[facility] HospitalIn the event this information is protected by the Federal Confidentiality of Alcohol and Drug Abuse Patient Records regulations: The Federal rules restrict any use of the information to criminally investigate or prosecute any alcohol or drug abuse patient.[facility] HospitalIn the event this information is protected by the Federal Confidentiality of Alcohol and Drug Abuse Patient Records regulations: The Federal rules restrict any use of the information to criminally investigate or prosecute any alcohol or drug abuse patient.[facility] HospitalIn the event this information is protected by the Federal Confidentiality of Alcohol and Drug Abuse Patient Records regulations: The Federal rules restrict any use of the information to criminally investigate or prosecute any alcohol or drug abuse patient.[facility] HospitalIn the event this information is protected by the Federal Confidentiality of Alcohol and Drug Abuse Patient Records regulations: The Federal rules restrict any use of the information to criminally investigate or prosecute any alcohol or drug abuse patient.[facility] HospitalIn the event this information is protected by the Federal Confidentiality of Alcohol and Drug Abuse Patient Records regulations: The Federal rules restrict any use of the information to criminally investigate or prosecute any alcohol or drug abuse patient.[facility] HospitalIn the event this information is protected by the Federal Confidentiality of Alcohol and Drug Abuse Patient Records regulations: The Federal rules restrict any use of the information to criminally investigate or prosecute any alcohol or drug abuse patient.[facility] HospitalIn the event this information is protected by the Federal Confidentiality of Alcohol and Drug Abuse Patient Records regulations: The Federal rules restrict any use of the information to criminally investigate or prosecute any alcohol or drug abuse patient.[facility] HospitalIn the event this information is protected by the Federal Confidentiality of Alcohol and Drug Abuse Patient Records regulations: The Federal rules restrict any use of the information to criminally investigate or prosecute any alcohol or drug abuse patient.[facility] HospitalIn the event this information is protected by the Federal Confidentiality of Alcohol and Drug Abuse Patient Records regulations: The Federal rules restrict any use of the information to criminally investigate or prosecute any alcohol or drug abuse patient.[facility] HospitalIn the event this information is protected by the Federal Confidentiality of Alcohol and Drug Abuse Patient Records regulations: The Federal rules restrict any use of the information to criminally investigate or prosecute any alcohol or drug abuse patient.[facility] HospitalIn the event this information is protected by the Federal Confidentiality of Alcohol and Drug Abuse Patient Records regulations: The Federal rules restrict any use of the information to criminally investigate or prosecute any alcohol or drug abuse patient.[facility] HospitalIn the event this information is protected by the Federal Confidentiality of Alcohol and Drug Abuse Patient Records regulations: The Federal rules restrict any use of the information to criminally investigate or prosecute any alcohol or drug abuse patient.[facility] HospitalIn the event this information is protected by the Federal Confidentiality of Alcohol and Drug Abuse Patient Records regulations: The Federal rules restrict any use of the information to criminally investigate or prosecute any alcohol or drug abuse patient.[facility] HospitalIn the event this information is protected by the Federal Confidentiality of Alcohol and Drug Abuse Patient Records regulations: The Federal rules restrict any use of the information to criminally investigate or prosecute any alcohol or drug abuse patient.[facility] HospitalIn the event this information is protected by the Federal Confidentiality of Alcohol and Drug Abuse Patient Records regulations: The Federal rules restrict any use of the information to criminally investigate or prosecute any alcohol or drug abuse patient.[facility] HospitalIn the event this information is protected by the Federal Confidentiality of Alcohol and Drug Abuse Patient Records regulations: The Federal rules restrict any use of the information to criminally investigate or prosecute any alcohol or drug abuse patient.[facility] HospitalIn the event this information is protected by the Federal Confidentiality of Alcohol and Drug Abuse Patient Records regulations: The Federal rules restrict any use of the information to criminally investigate or prosecute any alcohol or drug abuse patient.[facility] HospitalIn the event this information is protected by the Federal Confidentiality of Alcohol and Drug Abuse Patient Records regulations: The Federal rules restrict any use of the information to criminally investigate or prosecute any alcohol or drug abuse patient.[facility] HospitalIn the event this information is protected by the Federal Confidentiality of Alcohol and Drug Abuse Patient Records regulations: The Federal rules restrict any use of the information to criminally investigate or prosecute any alcohol or drug abuse patient.[facility] HospitalIn the event this information is protected by the Federal Confidentiality of Alcohol and Drug Abuse Patient Records regulations: The Federal rules restrict any use of the information to criminally investigate or prosecute any alcohol or drug abuse patient.[facility] HospitalIn the event this information is protected by the Federal Confidentiality of Alcohol and Drug Abuse Patient Records regulations: The Federal rules restrict any use of the information to criminally investigate or prosecute any alcohol or drug abuse patient.[facility] HospitalIn the event this information is protected by the Federal Confidentiality of Alcohol and Drug Abuse Patient Records regulations: The Federal rules restrict any use of the information to criminally investigate or prosecute any alcohol or drug abuse patient.[facility] HospitalIn the event this information is protected by the Federal Confidentiality of Alcohol and Drug Abuse Patient Records regulations: The Federal rules restrict any use of the information to criminally investigate or prosecute any alcohol or drug abuse patient.[facility] HospitalIn the event this information is protected by the Federal Confidentiality of Alcohol and Drug Abuse Patient Records regulations: The Federal rules restrict any use of the information to criminally investigate or prosecute any alcohol or drug abuse patient.[facility] HospitalIn the event this information is protected by the Federal Confidentiality of Alcohol and Drug Abuse Patient Records regulations: The Federal rules restrict any use of the information to criminally investigate or prosecute any alcohol or drug abuse patient.[facility] HospitalIn the event this information is protected by the Federal Confidentiality of Alcohol and Drug Abuse Patient Records regulations: The Federal rules restrict any use of the information to criminally investigate or prosecute any alcohol or drug abuse patient.[facility] HospitalIn the event this information is protected by the Federal Confidentiality of Alcohol and Drug Abuse Patient Records regulations: The Federal rules restrict any use of the information to criminally investigate or prosecute any alcohol or drug abuse patient.[facility] HospitalIn the event this information is protected by the Federal Confidentiality of Alcohol and Drug Abuse Patient Records regulations: The Federal rules restrict any use of the information to criminally investigate or prosecute any alcohol or drug abuse patient.[facility] HospitalIn the event this information is protected by the Federal Confidentiality of Alcohol and Drug Abuse Patient Records regulations: The Federal rules restrict any use of the information to criminally investigate or prosecute any alcohol or drug abuse patient.[facility] HospitalIn the event this information is protected by the Federal Confidentiality of Alcohol and Drug Abuse Patient Records regulations: The Federal rules restrict any use of the information to criminally investigate or prosecute any alcohol or drug abuse patient.[facility] HospitalIn the event this information is protected by the Federal Confidentiality of Alcohol and Drug Abuse Patient Records regulations: The Federal rules restrict any use of the information to criminally investigate or prosecute any alcohol or drug abuse patient.[facility] HospitalIn the event this information is protected by the Federal Confidentiality of Alcohol and Drug Abuse Patient Records regulations: The Federal rules restrict any use of the information to criminally investigate or prosecute any alcohol or drug abuse patient.[facility] HospitalIn the event this information is protected by the Federal Confidentiality of Alcohol and Drug Abuse Patient Records regulations: The Federal rules restrict any use of the information to criminally investigate or prosecute any alcohol or drug abuse patient.[facility] HospitalIn the event this information is protected by the Federal Confidentiality of Alcohol and Drug Abuse Patient Records regulations: The Federal rules restrict any use of the information to criminally investigate or prosecute any alcohol or drug abuse patient.[facility] HospitalIn the event this information is protected by the Federal Confidentiality of Alcohol and Drug Abuse Patient Records regulations: The Federal rules restrict any use of the information to criminally investigate or prosecute any alcohol or drug abuse patient.[facility] HospitalIn the event this information is protected by the Federal Confidentiality of Alcohol and Drug Abuse Patient Records regulations: The Federal rules restrict any use of the information to criminally investigate or prosecute any alcohol or drug abuse patient.[facility] HospitalIn the event this information is protected by the Federal Confidentiality of Alcohol and Drug Abuse Patient Records regulations: The Federal rules restrict any use of the information to criminally investigate or prosecute any alcohol or drug abuse patient.[facility] HospitalIn the event this information is protected by the Federal Confidentiality of Alcohol and Drug Abuse Patient Records regulations: The Federal rules restrict any use of the information to criminally investigate or prosecute any alcohol or drug abuse patient.[facility] HospitalIn the event this information is protected by the Federal Confidentiality of Alcohol and Drug Abuse Patient Records regulations: The Federal rules restrict any use of the information to criminally investigate or prosecute any alcohol or drug abuse patient.[facility] HospitalIn the event this information is protected by the Federal Confidentiality of Alcohol and Drug Abuse Patient Records regulations: The Federal rules restrict any use of the information to criminally investigate or prosecute any alcohol or drug abuse patient.[facility] HospitalIn the event this information is protected by the Federal Confidentiality of Alcohol and Drug Abuse Patient Records regulations: The Federal rules restrict any use of the information to criminally investigate or prosecute any alcohol or drug abuse patient.[facility] HospitalIn the event this information is protected by the Federal Confidentiality of Alcohol and Drug Abuse Patient Records regulations: The Federal rules restrict any use of the information to criminally investigate or prosecute any alcohol or drug abuse patient.[facility] HospitalIn the event this information is protected by the Federal Confidentiality of Alcohol and Drug Abuse Patient Records regulations: The Federal rules restrict any use of the information to criminally investigate or prosecute any alcohol or drug abuse patient.[facility] HospitalIn the event this information is protected by the Federal Confidentiality of Alcohol and Drug Abuse Patient Records regulations: The Federal rules restrict any use of the information to criminally investigate or prosecute any alcohol or drug abuse patient.[facility] HospitalIn the event this information is protected by the Federal Confidentiality of Alcohol and Drug Abuse Patient Records regulations: The Federal rules restrict any use of the information to criminally investigate or prosecute any alcohol or drug abuse patient.[facility] HospitalIn the event this information is protected by the Federal Confidentiality of Alcohol and Drug Abuse Patient Records regulations: The Federal rules restrict any use of the information to criminally investigate or prosecute any alcohol or drug abuse patient.[facility] HospitalIn the event this information is protected by the Federal Confidentiality of Alcohol and Drug Abuse Patient Records regulations: The Federal rules restrict any use of the information to criminally investigate or prosecute any alcohol or drug abuse patient.[facility] HospitalIn the event this information is protected by the Federal Confidentiality of Alcohol and Drug Abuse Patient Records regulations: The Federal rules restrict any use of the information to criminally investigate or prosecute any alcohol or drug abuse patient.[facility] HospitalIn the event this information is protected by the Federal Confidentiality of Alcohol and Drug Abuse Patient Records regulations: The Federal rules restrict any use of the information to criminally investigate or prosecute any alcohol or drug abuse patient.[facility] HospitalIn the event this information is protected by the Federal Confidentiality of Alcohol and Drug Abuse Patient Records regulations: The Federal rules restrict any use of the information to criminally investigate or prosecute any alcohol or drug abuse patient.[facility] HospitalIn the event this information is protected by the Federal Confidentiality of Alcohol and Drug Abuse Patient Records regulations: The Federal rules restrict any use of the information to criminally investigate or prosecute any alcohol or drug abuse patient.[facility] HospitalIn the event this information is protected by the Federal Confidentiality of Alcohol and Drug Abuse Patient Records regulations: The Federal rules restrict any use of the information to criminally investigate or prosecute any alcohol or drug abuse patient.[facility] HospitalIn the event this information is protected by the Federal Confidentiality of Alcohol and Drug Abuse Patient Records regulations: The Federal rules restrict any use of the information to criminally investigate or prosecute any alcohol or drug abuse patient.[facility] HospitalIn the event this information is protected by the Federal Confidentiality of Alcohol and Drug Abuse Patient Records regulations: The Federal rules restrict any use of the information to criminally investigate or prosecute any alcohol or drug abuse patient.[facility] HospitalIn the event this information is protected by the Federal Confidentiality of Alcohol and Drug Abuse Patient Records regulations: The Federal rules restrict any use of the information to criminally investigate or prosecute any alcohol or drug abuse patient.[facility] HospitalIn the event this information is protected by the Federal Confidentiality of Alcohol and Drug Abuse Patient Records regulations: The Federal rules restrict any use of the information to criminally investigate or prosecute any alcohol or drug abuse patient.[facility] HospitalIn the event this information is protected by the Federal Confidentiality of Alcohol and Drug Abuse Patient Records regulations: The Federal rules restrict any use of the information to criminally investigate or prosecute any alcohol or drug abuse patient.[facility] HospitalIn the event this information is protected by the Federal Confidentiality of Alcohol and Drug Abuse Patient Records regulations: The Federal rules restrict any use of the information to criminally investigate or prosecute any alcohol or drug abuse patient.[facility] HospitalIn the event this information is protected by the Federal Confidentiality of Alcohol and Drug Abuse Patient Records regulations: The Federal rules restrict any use of the information to criminally investigate or prosecute any alcohol or drug abuse patient.[facility] HospitalIn the event this information is protected by the Federal Confidentiality of Alcohol and Drug Abuse Patient Records regulations: The Federal rules restrict any use of the information to criminally investigate or prosecute any alcohol or drug abuse patient.[facility] HospitalIn the event this information is protected by the Federal Confidentiality of Alcohol and Drug Abuse Patient Records regulations: The Federal rules restrict any use of the information to criminally investigate or prosecute any alcohol or drug abuse patient.[facility] HospitalIn the event this information is protected by the Federal Confidentiality of Alcohol and Drug Abuse Patient Records regulations: The Federal rules restrict any use of the information to criminally investigate or prosecute any alcohol or drug abuse patient.[facility] HospitalIn the event this information is protected by the Federal Confidentiality of Alcohol and Drug Abuse Patient Records regulations: The Federal rules restrict any use of the information to criminally investigate or prosecute any alcohol or drug abuse patient.[facility] HospitalIn the event this information is protected by the Federal Confidentiality of Alcohol and Drug Abuse Patient Records regulations: The Federal rules restrict any use of the information to criminally investigate or prosecute any alcohol or drug abuse patient.[facility] HospitalIn the event this information is protected by the Federal Confidentiality of Alcohol and Drug Abuse Patient Records regulations: The Federal rules restrict any use of the information to criminally investigate or prosecute any alcohol or drug abuse patient.[facility] HospitalIn the event this information is protected by the Federal Confidentiality of Alcohol and Drug Abuse Patient Records regulations: The Federal rules restrict any use of the information to criminally investigate or prosecute any alcohol or drug abuse patient.[facility] HospitalIn the event this information is protected by the Federal Confidentiality of Alcohol and Drug Abuse Patient Records regulations: The Federal rules restrict any use of the information to criminally investigate or prosecute any alcohol or drug abuse patient.[facility] HospitalIn the event this information is protected by the Federal Confidentiality of Alcohol and Drug Abuse Patient Records regulations: The Federal rules restrict any use of the information to criminally investigate or prosecute any alcohol or drug abuse patient.[facility] Reason for Visit (unrecogniz ed section and content) Reason Comments Patient Update Home INR result Reason Comments Anticoagulation Home INR result Reason Comments Anticoagulation Telephone Fu INR Home Te st Result Reason Onset Date Comments Anticoagulation Telephone Fu 07/30/2021 Gumaro e INR Result Reason Onset Date Comments Anticoagulation Telephone Fu 08/07/2021 gumaro e INR Reason Comments Anticoagulation Telephone Fu Home INR re sult Reason Comments Anticoagulation Telephone Fu Home INR re sult expected Reason Comments Anticoagulation Telephone Fu Reason Comments Anticoagulation Reason Onset Date Comments Refill Request 11/02/2021 Reason Onset Date Comments Anticoagulation 07/23/2021 INR result expec jelani Reason Comments Anticoagulation Telephone Fu home INR Reason Comments Received External Medical Records Reason Comments Anticoagulation Telephone Fu Home INR Reason Comments Anticoagulation Telephone Fu INR Result Reason Comments Patient Question Reason Onset Date Comments Anticoagulation 05/13/2022 INR Result Expec jelani Reason Comments Anticoagulation Telephone Fu Home INR Reason Comments Follow Up Reason Comments Insurance Authorization Ozempic (0.25 or 0.5 MG/DOSE) 2MG/1.5ML pen-injectors Reason Comments Insurance Authorization - Denial of [place] rage of Ozempic Reason Onset Date Comments Anticoagulation Telephone Fu 06/27/2022 Gumaro e INR Reason Comments Refill Request Reason Onset Date Comments Anticoagulation Telephone Fu 08/26/2022 Gum[facility] e INR Result Reason Onset Date Comments Refill Request 08/22/2022 Semaglutide Reason Onset Date Comments Refill Request Refill Request 10/28/2022 Reason Onset Date Comments Anticoagulation Telephone Fu 11/21/2022 Gum[facility] e INR Reason Comments Anticoagulation Telephone Fu Home INR re sult Reason Onset Date Comments Anticoagulation Telephone Fu 02/03/2023 Gum[facility] e INR Result Reason Onset Date Comments Anticoagulation Telephone Fu 03/17/2023 Gum[facility] e INR Result Reason Onset Date Comments Anticoagulation Telephone Fu 06/02/2023 G[facility] INR Result Reason Comments New Patient Consult Reason Onset Date Comments Anticoagulation Telephone Fu 06/23/2023 G[facility] INR Result Reason Comments Valvular Heart Disease Specialty Diagnoses / Procedures Referred By Contac t Referred To [facility] Diagnoses H/O mechanical aortic valve replacement Procedures CARDIOVASCULAR MEDICINE OP FOLLOW UP APPT ORDER Kaleb Eduardo MD [address] [place] [address] [facility] [address] [place] [address] Referral ID Status Reason Start Date Expiration Date Visits Requested Visits Authorized [id number] Ref Not Required PCP Requested Referral 07/16/2023 06/16/2024 1 1 Reason Onset Date Comments Anticoagulation Telephone Fu 08/28/2023 Gum[facility] e INR Reason Onset Date Comments Anticoagulation Telephone Fu 09/22/2023 [facility] INR Result Reason Comments Anticoagulation Telephone Fu Home INR re sults Reason Onset Date Comments Anticoagulation Telephone Fu 12/18/2023 G[facility] INR Reason Onset Date Comments Anticoagulation Telephone Fu 01/05/2024 G[facility] INR Result Reason Onset Date Comments Anticoagulation Telephone Fu 01/22/2024 G[facility] e INR Reason Comments Anticoagulation Follow Up Reason Onset Date Comments Anticoagulation Telephone Fu 03/11/2024 Gum[facility] e INR Reason Onset Date Comments Anticoagulation Telephone Fu 04/19/2024 G[facility] e INR Result Reason Onset Date Comments Anticoagulation Telephone Fu 05/10/2024 G[facility] INR Result Reason Onset Date Comments Anticoagulation Telephone Fu 05/31/2024 G[facility] INR Result Reason Onset Date Comments Anticoagulation Telephone Fu 07/29/2024 G[facility] e INR Reason Comments Refill Request [facility] Managed Refill Reason Onset Date Comments Anticoagulation Telephone Fu 08/23/2024 Gum[facility] e INR Result Reason Comments Cardiology Follow Up Reason Onset Date Comments Anticoagulation Telephone Fu 10/04/2024 G[facility] INR Result Reason Onset Date Comments Anticoagulation Telephone Fu 10/21/2024 Gum[facility] e INR Reason Comments Refill Request Reason Onset Date Comments Anticoagulation Telephone Fu 12/02/2024 Gum[facility] INR Care Teams (unrecognized sec tion and content) Leadership Coach Relationship Specialty Start Date End Date Gilbert Vanegas MD PCP - General Family Practice 12/31/10 Juan Willis MD [address] [place] [address] Primary Staff Physician Cardiology 10/19/20 13, Pharmacist [phone] [place] [address] Pharmacist Pharmacy 05/31/21 Leadership Coach Relationship Specialty Start Date End Date Gilbert Vanegas MD PCP - General Family Practice 12/31/10 Juan Willis MD [address] [facility] [facility] [place], [place] [id number] Primary Staff Physician Cardiology 10/19/20 13, Pharmacist [phone] [place] [address] Pharmacist Pharmacy 05/31/21 Leadership Coach Relationship Specialty Start Date End Date Gilbert Vanegas MD PCP - General Family Practice 12/31/10 Juan Willis MD [address] [place] [address] Primary Staff Physician Cardiology 10/19/20 13, Pharmacist [phone] [place] [address] Pharmacist Pharmacy 05/31/21 Leadership Coach Relationship Specialty Start Date End Date Gilbert Vanegas MD PCP - General Family Practice 12/31/10 Juan Willis MD [address] [place] [address] Primary Staff Physician Cardiology 10/19/20 13, Pharmacist [phone] [place] [address] Pharmacist Pharmacy 05/31/21 Leadership Coach Relationship Specialty Start Date End Date Gilbert Vanegas MD PCP - General Family Practice 12/31/10 Juan Willis MD [address] [place] [address] Primary Staff Physician Cardiology 10/19/20 13, Pharmacist [phone] [place] [address] Pharmacist Pharmacy 05/31/21 Leadership Coach Relationship Specialty Start Date End Date Gilbert Vanegas MD PCP - General Family Practice 12/31/10 Juan Willis MD [address] [place], [place] [id number] Primary Staff Physician Cardiology 10/19/20 13, Pharmacist [phone] [place] [address] Pharmacist Pharmacy 05/31/21 Leadership Coach Relationship Specialty Start Date End Date Gilbert Vanegas MD PCP - General Family Medicine 12/31/10 Juan Willis MD [address] [place] [address] Primary Staff Physician Cardiology 10/19/20 13, Pharmacist [phone] [place] [address] Pharmacist Pharmacy 05/31/21 Leadership Coach Relationship Specialty Start Date End Date Gilbert Vanegas MD PCP - General Family Medicine 12/31/10 Juan Willis MD [address] [place] [address] Primary Staff Physician Cardiology 10/19/20 13, Pharmacist [phone] [place] [address] Pharmacist Pharmacy 05/31/21 Leadership Coach Relationship Specialty Start Date End Date Gilbert Vanegas MD PCP - General Family Medicine 12/31/10 Juan Willis MD [address] [place] [address] Primary Staff Physician Cardiology 10/19/20 13, Pharmacist [phone] [place] [address] Pharmacist Pharmacy 05/31/21 Leadership Coach Relationship Specialty Start Date End Date Gilbert Vanegas MD PCP - General Family Medicine 12/31/10 Juna Willis MD [address] [place], [place] [id number] Primary Staff Physician Cardiology 10/19/20 13, Pharmacist [address] [place] [address] Pharmacist Pharmacy 05/31/21 Leadership Coach Relationship Specialty Start Date End Date Gilbert Vanegas MD PCP - General Family Medicine 12/31/10 Juan Willis MD [address] [place] [address] Primary Staff Physician Cardiology 10/19/20 13, Pharmacist [address] [place] [address] Pharmacist Pharmacy 05/31/21 Leadership Coach Relationship Specialty Start Date End Date Gilbert Vanegas MD PCP - General Family Medicine 12/31/10 Juan Willis MD [address] [place] [address] Primary Staff Physician Cardiology 10/19/20 13, Pharmacist [address] [place] [address] Pharmacist Pharmacy 05/31/21 Team Status: Active Member Role Status Dates Dr. Gilbert Vanegas MD Family Provider Active Gilbert Vanegas MD Primary Care Provider Active Team Status: Inactive Member Role Status Dates Gilbert Vanegas MD Primary Care Provider Active Dr. Gilbert Vanegas MD Attending Provider Active Team Status: Inactive Member Role Status Dates Gilbert Vanegas MD Primary Care Provider Active Dr. Marcus Tavarez MD Attending Provider, Referr ing Provider Active Leadership Coach Relationship Specialty Start Date End Date Gilebrt Vanegas MD PCP - General Family Medicine 12/31/10 Juan Willis MD [address] [place], [place] [id number] Primary Staff Physician Cardiology 10/19/20 13, Pharmacist [address] [place] [address] Pharmacist Pharmacy 05/31/21 Leadership Coach Relationship Specialty Start Date End Date Gilbert Vanegas MD PCP - General Family Medicine 12/31/10 Juan Willis MD [address] [facility] [facility] [place], [place] [id number] Primary Staff Physician Cardiology 10/19/20 13, Pharmacist [phone] [place] [address] Pharmacist Pharmacy 05/31/21 Leadership Coach Relationship Specialty Start Date End Date Gilbert Vanegas MD PCP - General Family Medicine 12/31/10 Juan Willis MD [address] [place] [address] Primary Staff Physician Cardiology 10/19/20 13, Pharmacist [phone] [place] [address] Pharmacist Pharmacy 05/31/21 Leadership Coach Relationship Specialty Start Date End Date Gilbert Vanegas MD PCP - General Family Medicine 12/31/10 Juan Willis MD [address] [place] [address] Primary Staff Physician Cardiology 10/19/20 13, Pharmacist [phone] [place] [address] Pharmacist Pharmacy 05/31/21 Leadership Coach Relationship Specialty Start Date End Date Gilbert Vanegas MD PCP - General Family Medicine 12/31/10 Juan Willis MD [address] [place] [address] Primary Staff Physician Cardiology 10/19/20 13, Pharmacist [address] [place] [address] Pharmacist Pharmacy 05/31/21 Leadership Coach Relationship Specialty Start Date End Date Gilbert Vanegas MD PCP - General Family Medicine 12/31/10 Juan Willis MD [address] [place] [address] Primary Staff Physician Cardiology 10/19/20 13, Pharmacist [address] [place] [address] Pharmacist Pharmacy 05/31/21 Leadership Coach Relationship Specialty Start Date End Date Gilbert Vanegas MD PCP - General Family Medicine 12/31/10 Juan Willis MD [address] [place] [address] Primary Staff Physician Cardiology 10/19/20 13, Pharmacist [address] [place] [address] Pharmacist Pharmacy 05/31/21 Team Status: Active Member Role Status Dates Dr. Gilbert Vanegas MD Family Provider Active Dr. Gilbert Vanegas MD Primary Care Provider Active Team Status: Inactive Member Role Status Dates Gilbert SCOTT MD Primary Care Provider, Referring Pr ovider Active Arsenio RTIPATHI, PA Attending Provider Active Team Status: Active Member Role Status Dates Dr. Gilbert Vanegas MD Primary Care Provider Active Dr. Marcus Tavarez MD Attending Provider, Referr ing Provider Active Team Status: Inactive Member Role Status Dates Dr. Gilbert Vanegas MD Primary Care Provider Active Dr. Lavon Salgado DO Emergency Provider Active Leadership Coach Relationship Specialty Start Date End Date Gilbert Vanegas MD PCP - General Family Medicine 12/31/10 Juan Willis MD [address] [place], [place] [id number] Primary Staff Physician Cardiology 10/19/20 13, Pharmacist [address] [place] [address] Pharmacist Pharmacy 05/31/21 Leadership Coach Relationship Specialty Start Date End Date Gilbert Vanegas MD PCP - General Family Medicine 12/31/10 Juan Willis MD [address] [place] [address] Primary Staff Physician Cardiology 10/19/20 13, Pharmacist [phone] [place] [address] Pharmacist Pharmacy 05/31/21 Leadership Coach Relationship Specialty Start Date End Date Gilbert Vanegas MD PCP - General Family Medicine 12/31/10 Juan Willis MD [address] [place] [address] Primary Staff Physician Cardiology 10/19/20 13, Pharmacist [address] [place] [address] Pharmacist Pharmacy 05/31/21 Leadership Coach Relationship Specialty Start Date End Date Gilbert Vanegas MD PCP - General Family Medicine 12/31/10 Jaun Willis MD [address] [place] [address] Primary Staff Physician Cardiology 10/19/20 13, Pharmacist [address] [place] [address] Pharmacist Pharmacy 05/31/21 Team Status: Inactive Member Role Status Dates Dr. Gilbert Vanegas MD Primary Care Provider Active Dr. Marcus Tavarez MD Attending Provider, Referr ing Provider Active Team Status: Inactive Member Role Status Dates Dr. Gilbert Vanegas MD Primary Care Provider Active Dr. Lavon Salgado DO Attending Provider, Emergency Provider Active Team Status: Inactive Member Role Status Dates Dr. Gilbert Vanegas MD Primary Care Provider, Attending Dalton braxton Active Leadership Coach Relationship Specialty Start Date End Date Gilbert Vanegas MD PCP - General Family Medicine 12/31/10 Juan Willis MD [address] [place], [place] [id number] Primary Staff Physician Cardiology 10/19/20 13, Pharmacist [address] [place] [address] Pharmacist Pharmacy 05/31/21 Leadership Coach Relationship Specialty Start Date End Date Gilbert Vanegas MD PCP - General Family Medicine 12/31/10 Juan Willis MD [address] [place], [place] [id number] Primary Staff Physician Cardiology 10/19/20 13, Pharmacist [address] [place] [address] Pharmacist Pharmacy 05/31/21 Leadership Coach Relationship Specialty Start Date End Date Gilbert Vanegas MD PCP - General Family Medicine 12/31/10 Juan Willis MD [address] [place], [place] [address] Primary Staff Physician Cardiology 10/19/20 13, Pharmacist [address] [place] [address] Pharmacist Pharmacy 05/31/21 Leadership Coach Relationship Specialty Start Date End Date Gilbert Vanegas MD PCP - General Family Medicine 12/31/10 Juan Willis MD [address] [place] [address] Primary Staff Physician Cardiology 10/19/20 13, Pharmacist [address] [place] [address] Pharmacist Pharmacy 05/31/21 Leadership Coach Relationship Specialty Start Date End Date Gilbert Vanegas MD PCP - General Family Medicine 12/31/10 Juan Willis MD [address] [place] [address] Primary Staff Physician Cardiology 10/19/20 13, Pharmacist [address] [place] [address] Pharmacist Pharmacy 05/31/21 Leadership Coach Relationship Specialty Start Date End Date Gilbert Vanegas MD PCP - General Family Medicine 12/31/10 Juan Willis MD [address] [place] [address] Primary Staff Physician Cardiology 10/19/20 13, Pharmacist [address] [place] [address] Pharmacist Pharmacy 05/31/21 Leadership Coach Relationship Specialty Start Date End Date Gilbert Vanegas MD PCP - General Family Medicine 12/31/10 Juan Willis MD [address] [place] [address] Primary Staff Physician Cardiology 10/19/20 13, Pharmacist [phone] [place], [place] [id number] Pharmacist Pharmacy 05/31/21 Leadership Coach Relationship Specialty Start Date End Date Gilbert Vanegas MD PCP - General Family Medicine 12/31/10 Juan Willis MD [address] [place] [address] Primary Staff Physician Cardiology 10/19/20 13, Pharmacist [address] [place] [address] Pharmacist Pharmacy 05/31/21 Leadership Coach Relationship Specialty Start Date End Date Gilbert Vanegas MD PCP - General Family Medicine 12/31/10 Juan Willis MD [address] [place] [address] Primary Staff Physician Cardiology 10/19/20 13, Pharmacist [id number] [place] [address] Pharmacist Pharmacy 05/31/21 Team Status: Active Member Role/Relationship Status Dates Dr. Gilbert Vanegas MD Primary Care Provider Active Team Status: Inactive Member Role/Relationship Status Dates Dr. Gilbert Vanegas MD Primary Care Provider Active Start: November 11, 2024 End: November 11, 2024 Dr. Gilbert Vanegas MD Other Provider Active Start: November 11, 2024 End: November 11, 2024 Dr. Marcus Tavarez MD Attending Provider Active Start: November 11, 2024 End: November 11, 2024 Dr. Marcus Tavarez MD Referring Provider Active Start: November 11, 2024 End: November 11, 2024 Leadership Coach Relationship Specialty Start Date End Date Gilbert Vanegas MD PCP - General Family Medicine 12/31/10 Juan Willis MD [address] [place] [address] Primary Staff Physician Cardiology 10/19/20 13, Pharmacist [id number] [place] [address] Pharmacist Pharmacy 05/31/21 Goals (unrecognized section and content) Goals may be documented in a n alternate sectionGoals may be documented in an alternate sectionGoals may be documented in an alternate sectionGoals may be documented in an alternate sectionGoals may be documented in an alternate sectionGoals may be documented in an alternate section (unrecognized sect ion and content) No Status Records FoundNo Status Records Found INFORMATION SOURCE (unrecogn ized section and content) DATE CREATED AUTHOR 11/18/2024 [facility] DATE CREATED AUTHOR AUTHOR'S KIKI MCHUGH 02/22/2025 [facility] FOR RECORDS PERTAINING TO PATIENTS WHO ARE OR HAVE BEEN ENROLLED IN A CHEMICAL DEPENDENCY/SUBSTANCEABUSE PROGRAM, SOME INFORMATION MAY BE OMITTED. This clinical summary was aggregated from multiple sources. Caution should be exercised in using it in the provision of clinical care. This summary normalizes information from multiple sources, and as a consequence, information in this document may materially change the coding, format and clinical context of patient data. In addition, data may be omitted in some cases. CLINICAL DECISIONS SHOULD BE BASED ON THE PRIMARY CLINICAL RECORDS. [employer] provides no warranty or guarantee of the accuracy or completeness of information in this document.
== END | disposition home or self-care (01) ==
LOC: LAB 16:14
PROVIDERS: PCP Family Medicine; Referring Provider Family Medicine; Visit Provider Family Medicine
DX: R82.2 Biliuria (principal)
CPT/HCPCS: 36415; 80053; 85025